=== PATIENT | female | born 1970 | race Caucasian/White ===

== ENCOUNTER 2020-05-10 18:08 | Emergency (ER) | payer OTHER, SELFPAY ==
[2020-05-10 18:09] VITALS: BP 144/94; PULSE 116; RESP 16; TEMP 36.3; O2SAT 99; BMI 28.5
[2020-05-10] MEDS: morphine 8 MG/ML Syringe IV (19:28)
[2020-05-10] MEDS: Ondansetron 4 MG/2 ML Vial IV (19:28)
--- NOTE | 2020-05-10 20:29 | ED.DCSUM_ITS ---
History of Present Illness Chief Complaint: Other, Pain/Inj Informant: Patient Onset: Today, Hours - Approximately 10 AM Context: Sudden Onset Timing: Continuous Quality: Pain Location: Base of neck posteriorly along the C8 dermatome Current Severity: Mild Maximum Severity: Moderate Worsened by: Movement Relieved by: Nothing Associated Symptoms: Tingling and pain Narrative: Patient is a 49-year-old right-hand dominant woman whose had neck fusion and disc replacement C5-6 and C6-7 at 2 different facilities in the past. She presents with acute pain after looking up. She felt a pop. She describes pain along the C8 dermatome. She denies weakness with grasp. She has no other symptoms. Prior similar symptoms: No Recent Illness/Hospitalization: No - Past Medical History (1) History of type 1 diabetes mellitus Status: Acute (2) Hypothyroidism Status: Acute Past Medical History - Allergies and Home Meds Allergies/Adverse Reactions: Allergies NSAIDS (Non-Steroidal Anti-Inflamma Allergy (Verified 05/10/20 18:09) Swelling Primary Care Physician: [facility],[place] [Primary Care Provider] - Prior records reviewed: Yes Surgical History: - - Fusion and disc replacement C5-6 and C6-7 Lives: Spouse/ Significant Other Smoking Status: Current every day smoker Alcohol: Rare Drugs: None Review of Systems General: Denies: Chills, Fever, Malaise, Sweats Eyes: Denies: Visual changes - bilaterally, Blurred Vision - bilaterally ENT: Reports: - - Ringing in ears or decreased hearing. Denies: Bilateral ear pain, Rhinorrhea, Sore throat Cardiovascular: Denies: Chest pain, Palpitations Respiratory: Denies: Dyspnea, Cough, Dyspnea on exertion Gastrointestinal: Denies: Abdominal pain, Nausea, Vomiting Musculoskeletal: Reports: Neck pain, Extremity Pain. Denies: Myalgias, Arthralgias, Back pain, Swelling, -, - Skin: Denies: Rash, Wounds Neurological: Reports: Parasthesia. Denies: Headache, Weakness Hematologic: Denies: Easy bruising, Easy bleeding Physical Exam Vital Signs/Narrative: Vital Signs Temp Pulse Resp BP Pulse Ox 05/10/20 18:09 97.4 F L 116 H 16 144/94 H 99 Inital Vital Signs reviewed: Yes General: Well nourished, Well developed, Acute Distress Head: Normocephalic, Atraumatic Eyes: Perrl, EOMI ENT: Moist mucous membranes, No rhinorrhea Neck: Supple, Nontender Cardiovascular: Regular rate, Regular rhythm, No murmurs Respiratory: No distress, CTA bilaterally, Chest nontender Abdomen: Soft, Nontender, Nondistended, Normal bowel sounds Back: Nontender, Normal Inspection Extremities: Nontender, No edema Skin: Normal color, No rash Neurological: Alert, Oriented x3, Cranial nerves II-XII grossly intact, Normal Strength, Normal DTR - DTR 1+ at the biceps, brachioradialis and tricep bilaterally. Negative Babinski sign. Negative clonus. Axillary, median, radial and ulnar function intact. Decreased sensation C8 dermatome. Negative for: Normal Sensation Psychological: Normal affect, Normal Mood Diagnostic/Tx/Re-eval - Medical Decision Making Patient with C8 radicular pain. Since there is no objective neurologic deficit emergent MRI was not obtained. She was medicated with IV morphine. She has anaphylaxis to NSAIDs. Patient was assessed at 2030. She is smiling. Pain has improved but has not resolved. Will discharge with prescription for opiate analgesia. ED Disposition - Plan for ED Patient: Disposition: Home or Assisted Living Diagnosis: Cervical radiculopathy at C8 Prescriptions: Oxycodone HCl/Acetaminophen [Percocet 5/325] 1 tab PO Q6H PRN PRN 5 Days #20 tab PRN Reason: Cervical radicular pain Prescription Printed Referrals: [facility],[place] [Primary Care Provider] - 3-5 Days
[2020-05-10 20:51] VITALS: PULSE 80; RESP 16; O2SAT 98
== END 2020-05-10 20:52 | disposition home or self-care (01) ==
PROVIDERS: Emergency Provider Emergency Medicine
DX: M54.12 Radiculopathy, cervical region (principal); Z98.1 Arthrodesis status; E10.9 Type 1 diabetes mellitus without complications; E03.9 Hypothyroidism, unspecified; F17.200 Nicotine dependence, unspecified, uncomplicated; Z79.4 Long term (current) use of insulin; Z79.899 Other long term (current) drug therapy; Z88.6 Allergy status to analgesic agent
CPT/HCPCS: 96374; 96375; 99283; A4216; J2405

== ENCOUNTER 2020-05-15 11:51 | Emergency (ER) | payer OTHER, SELFPAY ==
[2020-05-15 11:53] VITALS: BP 136/80; PULSE 127; RESP 18; TEMP 36.8; O2SAT 99; BMI 29.7
--- NOTE | 2020-05-15 12:19 | MRI_ITS ---
STUDY: MRI CERVICAL SPINE WITHOUT CONTRAST REASON FOR EXAM: Female, 49 years old. radiculopathy. Neck pain and right arm pain s/p injury 1 week ago TECHNIQUE: Standardized fat and water weighted pulse sequences were obtained in the sagittal and axial planes. COMPARISON: None FINDINGS: Normal foramen magnum and brainstem-cervical cord junction. Normal craniovertebral junction. Normal anterior atlantoaxial articulation. Normal odontoid process. Normal cervical lordosis. Anterior surgical fusions of C5-C7 with normal alignment. C2-3: Normal endplates. Normal disc height, signal and morphology. Normal central canal and intervertebral neural foramina. C3-4: Normal endplates. Normal disc height, signal and morphology. Normal central canal and intervertebral neural foramina. C4-5: Disc osteophyte complex with moderate central canal and bilateral foraminal stenoses. C5-6: Diffuse disc space without residual compressive sequelae. C6-7: Diffuse disc space without residual compressive sequelae. C7-T1: Normal endplates. Normal disc height, signal and morphology. Normal central canal and intervertebral neural foramina. Normal cervical cord. Normal visualized soft tissue structures. MRI/Spine Cervical (Routine) IMPRESSION: Multilevel degenerative disease and postoperative change as described. Moderate central canal and bilateral foraminal stenoses at the C4-5. No evidence of cord contusion, epidural hematoma, or ligament disruption. Electronically Signed: Eris Newell MD at 14:01 EDT Tel , Service support ,
[2020-05-15] MEDS: Ondansetron 4 MG/2 ML Vial IM (12:29)
[2020-05-15] MEDS: HYDROmorphone 1 MG/ML Syringe IM ×2 (12:30→14:16)
[2020-05-15 13:58] VITALS: BP 120/79; PULSE 97; RESP 16; O2SAT 99
--- NOTE | 2020-05-15 14:22 | ED.VISSUMM ---
- ER Visit Summary Date of Service: 05/15/20 Chief Complaint: [Neck pain] History of Present Illness: The patient is a 49 F [presents the emergency department complaint of pain in her neck that she has had for the last 5 days. Patient was seen in the emergency department for the same 5 days ago when the pain started and was given a prescription of Percocet. Patient states that she continues to have severe pain that radiates on her right arm. Patient states that her ring finger and small finger are numb and tingly but the rest of her hand is numb and tingly now as well. Pain radiates from her neck down her arm. Patient states that she dropped a coffee mug and complains of some mild weakness in the hand. Patient has history of 2 prior neck surgeries in 2007 and 2012. Patient has had fusion of her cervical spine from C4 5-6 7.] Physical Examination: [HEENT-PERRLA, EOMI. Cranial nerves II through XII grossly intact. TMs clear. Mucous membranes moist. No adenopathy. Patient has diffuse tenderness palpation over the cervical spine and the cervical paraspinal musculature on the right. Patient has mild weakness with grasp of the right hand compared to the left hand. Deep tendon reflexes are plus 2 out of 4 bilaterally at the bicep, tricep, and brachioradialis. Cardiovascular-regular rate and rhythm without murmur or ectopy Lungs-clear to auscultation, chest wall stable without crepitus or subcu emphysema Abdomen-normoactive bowel sounds, soft, nontender, no rebound or rigidity, no peritoneal signs. Extremities-intact ?4, normal range of motion, normal pulses, atraumatic] Test Results: [MRI of the spine cervical spine was obtained which showed multilevel degenerative disease and postop changes. Patient had moderate central canal and bilateral foraminal stenosis at the C4-5 level. No evidence of cord contusion, epidural hematoma, or ligament disruption.] Emergency Department Course and Treatment: [He was medicated Dilaudid for pain.] Treatment Plan: [She will follow-up with her neurosurgeon that did her last surgery. She was given her MRI images on a disc to take with her. She will be given a prescription for few more Percocet for severe pain.] Disposition: [Discharged home in stable condition.] Impression: [Cervical radiculopathy] This note was generated with Dragon dictation software. It may contain incorrect words, spelling, and punctuation that were not noted in review of the chart prior to signing ED Disposition - Plan for ED Patient: [facility] [Primary [facility]] -
--- NOTE | 2020-05-15 14:25 | ED.DEP ---
ED Disposition - Plan for ED Patient: Instructions: ED CERVICAL RADICULOPATHY Prescriptions: Oxycodone HCl/Acetaminophen [Percocet 5/325] 1 tab PO Q6H PRN PRN 5 Days #20 tab PRN Reason: Pain Score 6-10/10 Prescription Printed [facility]errals: [facility] [Primary [facility]] - Additional Instructions: see your surgeon in 3-5 days
[2020-05-15 14:33] VITALS: BP 112/84; PULSE 71; RESP 16; O2SAT 98
== END 2020-05-15 14:34 | disposition home or self-care (01) ==
LOC: ED 12:47
PROVIDERS: Emergency Provider Emergency Medicine
DX: M54.12 Radiculopathy, cervical region (principal); F17.200 Nicotine dependence, unspecified, uncomplicated; E11.9 Type 2 diabetes mellitus without complications; Z79.4 Long term (current) use of insulin
CPT/HCPCS: 72141; 96372; 96374; 99282; J2405

== ENCOUNTER 2020-05-21 18:44 | Emergency (ER) | payer OTHER, SELFPAY ==
[2020-05-21 18:46] VITALS: BP 132/108; PULSE 127; RESP 18; TEMP 36.6; O2SAT 99; BMI 29.7
--- NOTE | 2020-05-21 19:33 | ED.VIS.GEN ---
History of Present Illness Chief Complaint: Other, Pain/Inj Informant: Patient Onset: Weeks Current Severity: Moderate Maximum Severity: Severe Narrative: Patient presents with continued right neck and radicular pain. She was seen here on the and the . MRI was performed on the . Patient states that she had a tele-visit today with 1 of the doctors at the [place]. She was called back a short time later stating that she had actually seen the wrong doctor and was may be rescheduled for June 18. Patient complains of continued pain. At this time patient states she is willing to see any available surgeon and will try to get reimbursed to the [facility] if they are not able to take care of her. - Past Medical History (1) Diabetes Status: Chronic (2) Hypothyroidism Status: Chronic Past Medical History - Allergies and Home Meds Allergies/Adverse Reactions: Allergies NSAIDS (Non-Steroidal Anti-Inflamma Allergy (Verified 05/21/20 18:50) Swelling [facility] Care Physician: [facility] [Primary Care Provider] - Prior records reviewed: Yes Surgical History: - - Fusion and disc replacement C5-6 and C6-7 Lives: Spouse/ Significant Other Smoking Status: Current every day smoker Review of Systems General: Denies: Chills, Fever Eyes: Denies: Visual changes - bilaterally ENT: Denies: Bilateral ear pain Cardiovascular: Denies: Chest pain Respiratory: Denies: Dyspnea Gastrointestinal: Denies: Abdominal pain Musculoskeletal: Reports: Neck pain Skin: Denies: Rash Neurological: Reports: Weakness. Denies: Headache Hematologic: Denies: Easy bruising, Easy bleeding Allergy: Denies: Uticaria Physical Exam Vital Signs/Narrative: Vital Signs Temp Pulse Resp BP Pulse Ox 05/21/20 18:46 97.9 F 127 H 18 132/108 H 99 Inital Vital Signs reviewed: Yes General: Well nourished, Well developed Head: Normocephalic ENT: Moist mucous membranes Neck: Supple Cardiovascular: Regular rate, Regular rhythm Respiratory: No distress, CTA bilaterally Abdomen: Soft, Nontender Back: - - Right-sided neck pain and pain across the shoulder. Decreased range of motion of the shoulder secondary to pain. Strong distal pulses. Strong hand grasp. Extremities: Nontender Skin: Normal color, No rash Diagnostic/Tx/Re-eval - Medical Decision Making Previous work-up including MRI was reviewed. Patient received 20 tabs of Percocet on the and the 16. At this time she will get another prescription for Percocet. She will also be treated with a course of steroids as she is not able to take NSAIDs. She will also be given a muscle relaxer. She will be referred to Dr. Ruiz to be seen locally. I also spoke with social work to see if they had any connections on who [facility] ED Disposition - Plan for ED Patient: Disposition: Home or Assisted Living Diagnosis: Cervical radiculopathy Instructions: ED CERVICAL RADICULOPATHY Prescriptions: Prednisone [Deltasone] 40 mg PO DAILY #10 tab Transmission Status: Pending to [facility] cycloBENZAPRine HCl [Flexeril] 10 mg PO TID PRN #20 tab PRN Reason: Muscle Spasm Transmission Status: Pending to [facility] Oxycodone HCl/Acetaminophen [Percocet 5/325] 1 tablet PO Q6H PRN PRN 5 Days #20 tablet PRN Reason: Pain Score 4-10/10 Transmission Status: Sent to [facility] Referrals: [facility] [Primary Care Provider] - Zaida Ruiz MD [STAFF PHYSICIAN] - As soon as possible
[2020-05-21] MEDS: oxyCODONE 5 MG Tablet PO (19:40)
[2020-05-21] MEDS: cycloBENZAPRine HCl 10 MG Tablet PO (19:41)
[2020-05-21] MEDS: predniSONE 20 MG Tablet 40 MG PO (19:41)
[2020-05-21 19:42] VITALS: BP 115/89; PULSE 104; RESP 19; O2SAT 98
== END 2020-05-21 19:52 | disposition home or self-care (01) ==
LOC: ED 19:48
PROVIDERS: Emergency Provider Emergency Medicine
DX: M54.12 Radiculopathy, cervical region (principal); F17.200 Nicotine dependence, unspecified, uncomplicated; E11.9 Type 2 diabetes mellitus without complications; E03.9 Hypothyroidism, unspecified; Z79.4 Long term (current) use of insulin
CPT/HCPCS: 99283

== ENCOUNTER 2020-05-31 19:19 | Observation (INO) | payer OTHER, SELFPAY ==
[2020-05-31 19:20] VITALS: BP 134/93; PULSE 131; RESP 18; TEMP 36.7; O2SAT 99; BMI 30.7
--- NOTE | 2020-05-31 19:42 | EKG12_ITS ---
Test Reason : HYPOGLYCEMIA Blood Pressure : / mmHG Vent. Rate : 116 BPM Atrial Rate : 116 BPM P-R Int : 130 ms QRS Dur : 064 ms QT Int : 314 ms P-R-T Axes : 052 025 036 degrees QTc Int : 436 ms Sinus tachycardia Otherwise normal ECG Confirmed by TIKA FISHER ([id number]), science editor YVONNE CLARK ([id number]) on 06/04/2020 2:20:49 PM Referred By: Confirmed By:TIKA FISHER
--- NOTE | 2020-05-31 19:51 | ED.DCSUM_ITS ---
History of Present Illness Chief Complaint: Hyperglycemia Informant: Patient Narrative: Patient presents the emergency department with hyperglycemia. Patient states she has type II diabetic she takes Saturnino 1000 mg twice daily in addition to insulin. The patient states that approximately 8 days ago she was given steroids for a cervical radiculopathy. She stopped taking the steroids 3 days ago because her blood sugars kept reading high. She states she has dry mouth palpitations and urinary frequency and fatigue. She states that she has been taking extra short acting insulin (sometimes over 150 units) and at times has dropped her blood sugar down into the 40s. She called the [place] nursing line today and was referred to the emergency department. No fevers. No vomiting diarrhea. Past Medical History - Allergies and Home Meds Allergies/Adverse Reactions: Allergies NSAIDS (Non-Steroidal Anti-Inflamma Allergy (Verified 05/31/20 19:19) Swelling ketorolac [From Toradol] Adverse Reaction (Verified 05/31/20 22:00) NEEDS FOLLOW-UP tramadol Adverse Reaction (Verified 05/31/20 22:00) NEEDS FOLLOW-UP Primary Care Physician: [facility],[place] [Primary Care Provider] - As soon as possible Surgical History: - - Fusion and disc replacement C5-6 and C6-7 Smoking Status: Current every day smoker Review of Systems General: Reports: Malaise. Denies: Chills, Fever, Sweats Eyes: Denies: Visual changes - bilaterally, Diplopia ENT: Reports: -. Denies: Rhinorrhea, Sore throat Cardiovascular: Reports: Palpitations, Heart racing. Denies: Chest pain Respiratory: Denies: Dyspnea, Cough, Dyspnea on exertion Gastrointestinal: Denies: Abdominal pain, Nausea, Vomiting, Diarrhea, Melena, Hematochezia Genitourinary: Reports: Frequency - Dry mouth. Denies: Dysuria, Hematuria Musculoskeletal: Denies: Back pain, Extremity Pain Skin: Denies: Rash, Wounds Neurological: Denies: Headache, Weakness, Numbness Physical Exam Vital Signs/Narrative: Vital Signs Temp Pulse Resp BP Pulse Ox 05/31/20 19:20 98.1 F 131 H 18 134/93 H 99 Inital Vital Signs reviewed: Yes General: Well nourished, Well developed, No Acute Distress Head: Normocephalic, Atraumatic Eyes: Perrl, EOMI ENT: No rhinorrhea, Dry mucous membranes Neck: Supple, Nontender Cardiovascular: Regular rate, No murmurs, Tachycardia Respiratory: No distress, CTA bilaterally, Chest nontender Abdomen: Soft, Nontender, Nondistended, Normal bowel sounds Back: Nontender, Normal Inspection Extremities: Nontender, No edema Skin: Normal color, No rash Neurological: Alert, Oriented x3, Cranial nerves II-XII grossly intact, Normal Strength, Normal Sensation Psychological: Normal affect, Normal Mood Diagnostic/Tx/Re-eval Clinical Impression(s) from Imaging Studies Chest X-Ray 05/31/20 21:09 IMPRESSION: Vague tubular density over the left lung base thought to be artifactual. The possibility of mass or infiltrate cannot be definitively ruled out the absence of comparison studies. Electronically Signed: Ajit Miller DO at 21:42 EDT Tel [phone], Service support , Laboratory Last Values WBC 9.6 K/mm3 (4.4-11.0) 05/31/20 19:45 RBC 4.57 M/mm3 (4.2-5.4) 05/31/20 19:45 Hgb 12.6 g/dL (12.0-15.0) 05/31/20 19:45 Hct 39.5 % (37-47) 05/31/20 19:45 MCV 86.4 fL (81-99) 05/31/20 19:45 MCH 27.6 pg (27.0-32.0) 05/31/20 19:45 MCHC 31.9 g/dL (32-36) L 05/31/20 19:45 RDW Std Deviation 44.1 fl (35.1-43.9) H 05/31/20 19:45 RDW Coeff of Tere 14.4 % (11.6-14.6) 05/31/20 19:45 Plt Count 219 K/mm3 (150-450) 05/31/20 19:45 MPV 10.1 fl (6.2-12.0) 05/31/20 19:45 Immature Gran % (Auto) 0.400 % (0.0-0.9) 05/31/20 19:45 Neut % (Auto) 54.1 % (47-70) 05/31/20 19:45 Lymph % (Auto) 35.6 % (19-41) 05/31/20 19:45 Throckmorton % (Auto) 7.3 % (0-10) 05/31/20 19:45 Eos % (Auto) 2.0 % (0-5) 05/31/20 19:45 Baso % (Auto) 0.6 % (0-1) 05/31/20 19:45 Absolute Neuts (auto) 5.2 X10^3/uL (2.0-7.7) 05/31/20 19:45 Absolute Lymphs (auto) 3.42 X10^3/uL (0.83-4.51) 05/31/20 19:45 Nucleated RBC % 0 % (0-5) 05/31/20 19:45 PT 13.2 SECONDS (11.7-14.9) 05/31/20 19:45 INR 1.1 05/31/20 19:45 APTT 28.9 Seconds (24.1-36.2) 05/31/20 19:45 Sodium 134 mmol/L (136-145) L 05/31/20 19:45 Potassium 3.6 mmol/L (3.5-5.1) 05/31/20 19:45 Chloride 99 mmol/L (98-107) 05/31/20 19:45 Carbon Dioxide 29.0 mmol/L (21.0-32.0) 05/31/20 19:45 Anion Gap 6 (5-15) 05/31/20 19:45 BUN 9 mg/dL (7-18) 05/31/20 19:45 Creatinine 0.79 mg/dL (0.55-1.02) 05/31/20 19:45 Estim Creat Clear Calc 83.77 ml/min 05/31/20 19:45 Est GFR (MDRD) Af Amer 99 mL/min (>60) 05/31/20 19:45 Est GFR (MDRD) Non-Af 82 mL/min (>60) 05/31/20 19:45 BUN/Creatinine Ratio 11.4 RATIO (10-20) 05/31/20 19:45 Glucose 216 mg/dL (74-106) H 05/31/20 19:45 Lactic Acid 3.5 mmol/L (0.4-1.9) H* 05/31/20 19:45 Calcium 8.9 mg/dL (8.5-10.1) 05/31/20 19:45 Magnesium 1.5 mg/dL (1.6-2.6) L 05/31/20 19:45 Total Bilirubin 0.30 mg/dL (0.20-1.00) 05/31/20 19:45 AST 75 U/L (15-37) H 05/31/20 19:45 ALT 45 U/L (13-56) 05/31/20 19:45 Alkaline Phosphatase 182 U/L (45-117) H 05/31/20 19:45 Troponin I < 0.015 ng/mL (<0.045) 05/31/20 19:45 Total Protein 8.0 g/dL (6.4-8.2) 05/31/20 19:45 Albumin 3.2 g/dL (3.2-5.0) 05/31/20 19:45 Globulin 4.8 g/dL (2.2-4.2) H 05/31/20 19:45 Albumin/Globulin Ratio 0.7 RATIO (0.9-2.4) L 05/31/20 19:45 Lipase 62 U/L (73-393) L 05/31/20 19:45 Urine Color Yellow (Yellow) 05/31/20 20:05 Urine Clarity Sl. Cloudy (Clear) 05/31/20 20:05 Urine pH 5.0 (5.0 - 8.0) 05/31/20 20:05 Ur Specific [place] 1.010 (1.002-1.030) 05/31/20 20:05 Urine Protein Negative mg/dl (Negative) 05/31/20 20:05 Urine Glucose (UA) 1000 mg/dl (Normal) H 05/31/20 20:05 Urine Ketones Negative mg/dl (Negative) 05/31/20 20:05 Urine Occult Blood Negative /ul (Negative) 05/31/20 20:05 Urine Nitrite Negative (Negative) 05/31/20 20:05 Urine Bilirubin Negative mg/dL (Negative) 05/31/20 20:05 Urine Urobilinogen Normal mg/dl (Normal) 05/31/20 20:05 Ur Leukocyte Esterase 100 /ul (Negative) H 05/31/20 20:05 Urine RBC 0 SEEN /hpf (0-5) 05/31/20 20:05 Urine WBC 0-5 SEEN /hpf (0-5) 05/31/20 20:05 Ur Squamous Epith Cells 0-5 SEEN /hpf (5-10) 05/31/20 20:05 Urine Bacteria 0 SEEN /hpf (None Seen) 05/31/20 20:05 Urine Mucus 0 SEEN /hpf (<or=2+) 05/31/20 20:05 Acetone Level NEGATIVE (NEG) 05/31/20 19:43 - EKG Initial EKG Interpretation: Sinus Tachycardia - EKG demonstrates a sinus tachycardia at a rate of 116 - Medical Decision Making Patient received pain medication because of her cervical radiculopathy. As this is not an acute issue I do not feel IV Dilaudid is indicated. Patient showed evidence of significant dehydration both on physical exam (dry mucous membranes, tachycardia, decreased capillary refill) and in her laboratory studies which showed a lactic acid of 3.5. I do not believe the elevated lactic acid is due to sepsis. I believe is most likely due to hypovolemia. She received 2 L of IV fluids and her heart rate is come down now to around 110. I believe the patient would benefit from continued overnight hydration as well as close monitoring of her blood sugar to get a better idea as to what her insulin requirements are. As discussed in the HPI she has sometimes used over 150 vunits of short acting insulin in addition to her long-acting to try to control her sugars. ED Disposition - Plan for ED Patient: Disposition: Home or Assisted Living Diagnosis: Diabetes mellitus, Steroid-induced hyperglycemia, Dehydration, Elevated lactic acid level, Cervical radicular pain Instructions: ED Diabetic Hyperglycemia, ED HYPOGLYCEMIA Insulin Rxn, ED CERVICAL RADICULOPATHY [facility]errals: [facility] [Primary Care Provider] - As soon as possible Additional Instructions: Continue taking your long-acting insulin as well as your metformin You may try the sliding scale below for using your short acting insulin (Insulin lispro) BG 150-199: 2 unit BG 200-249: 4 units BG 250-299: 7 units BG 300-349: 10 units BG Over 350: 12 units
[2020-05-31] MEDS: 0.9% Normal Saline 1,000 ML 1000 ML IV (19:53)
[2020-05-31] MEDS: HYDROcodone Bitartrate/Apap 5/325 Tablet PO (20:06)
[2020-05-31 20:17] LABS: Bacteria 0 SEEN /hpf (None Seen); Mucous, Urine 0 SEEN /hpf (<or=2+); Red Blood Cells-Urine 0 SEEN /hpf (0-5)
[2020-05-31 20:19] LABS: Absolute Lymphocyte Count 3.42 X10^3/uL (0.83-4.51); Absolute Neutrophil Count 5.2 X10^3/uL (2.0-7.7); Basophil# 0.06 X10^3/uL; Basophil% 0.6 % (0-1); Eosinophil# 0.19 X10^3/uL; Hematocrit 39.5 % (37-47); Hemoglobin 12.6 g/dL (12.0-15.0); Lymphocyte # 3.42 X10^3/ul (4.0); Lymphocyte % 35.6 % (19-41); Mean Corp Hgb Conc 31.9 g/dL (32-36); Mean Corpuscular Hgb 27.6 pg (27.0-32.0); Mean Corpuscular Volume 86.4 fL (81-99); Mean Platelet Vol. 10.1 fl (6.2-12.0); Monocyte% 7.3 % (0-10); NRBC Flagged by Analyzer 0 % (0-5); Neutrophil # 5.19 X10^3/uL (2.7-7.7); Neutrophil % 54.1 % (47-70); Platelet Count 219 K/mm3 (150-450); RBC Distribution Width CV 14.4 % (11.6-14.6); RBC Distribution Width SD 44.1 fl (35.1-43.9); Red Blood Count 4.57 M/mm3 (4.2-5.4); White Blood Count 9.6 K/mm3 (4.4-11.0)
[2020-05-31 20:23] LABS: International Normalized Ratio 1.1; Prothrombin Time (Protime)PT. 13.2 SECONDS (11.7-14.9)
[2020-05-31 20:24] LABS: Partial Thromboplast Time 28.9 Seconds (24.1-36.2)
[2020-05-31 20:27] LABS: Color, Urine Yellow (Yellow); Glucose, Dipstick 1000 mg/dl (Normal); Ketone-Dipstick Negative (Negative); Leukocyte Esterase-Dipstick 100 /ul (Negative); Nitrite-Dipstick Negative (Negative); Occult Blood-Urine Negative /ul (Negative); Protein-Dipstick Negative (Negative); Urine Bilirubin Dipstick Negative (Negative); Urine Clarity Sl. Cloudy (Clear); Urine Urobilinogen Normal (Normal)
[2020-05-31 20:34] LABS: Squamous Epithelial Cells - UA 0-5 SEEN /hpf (5-10); White Blood Cells 0-5 SEEN /hpf (0-5)
[2020-05-31 20:45] VITALS: BP 103/71; PULSE 110; RESP 18; O2SAT 99
[2020-05-31 20:46] LABS: Lactic Acid 3.5 mmol/L (0.4-1.9)
--- NOTE | 2020-05-31 21:09 | RAD_ITS ---
STUDY: X-RAY CHEST REASON FOR EXAM: Female, 49 years old. Patient seen 1.5 weeks ago and given prednisone. Now with hyperglycemia. TECHNIQUE: Single AP portable view of the chest. COMPARISON: None. FINDINGS: Telemetry wires overlie the chest. Lungs well-expanded. There is vague density over the lateral left lung base which is thought to be artifactual. The possibility of focal nodule or infiltrate cannot be ruled out in the absence of comparison films. There is no demonstrated pleural abnormality. Normal size heart. Normal mediastinum and janes. Normal visualized pulmonary arteries. Normal visualized aortic arch and descending thoracic aorta. Normal visualized thoracic spine. There are surgical changes of the lower cervical spine. Normal visualized ribs, clavicles, and shoulders. There is no demonstrated abnormality of the visualized soft tissue structures of the upper abdomen. RAD/Chest 1 View (Portable) IMPRESSION: Vague tubular density over the left lung base thought to be artifactual. The possibility of mass or infiltrate cannot be definitively ruled out the absence of comparison studies. Electronically Signed: Ajit Miller DO at 21:42 EDT Tel [phone], Service support ,
[2020-05-31 21:22] LABS: ALB/GLOB Ratio 0.7 RATIO (0.9-2.4); AST(SGOT) 75 U/L (15-37); Alanine Aminotransfer ALT/SGPT 45 U/L (13-56); Albumin, Serum 3.2 g/dL (3.2-5.0); Alkaline Phosphatase 182 U/L (45-117); Anion Gap 6 (5-15); BUN 9 mg/dL (7-18); BUN/Creat Ratio 11.4 RATIO (10-20); Calcium,Total 8.9 mg/dL (8.5-10.1); Chloride 99 mmol/L (98-107); Creatinine, Serum 0.79 mg/dL (0.55-1.02); EST Glomerular Filtration Rate 82 mL/min (>60); Est Glom Filt Rate - Afr Amer 99 mL/min (>60); Estimated Creatinine Clearance 83.77 ml/min; Globulin 4.8 g/dL (2.2-4.2); Glucose 216 mg/dL (74-106); Lipase 62 U/L (73-393); Magnesium 1.5 mg/dL (1.6-2.6); Potassium 3.6 mmol/L (3.5-5.1); Sodium Level 134 mmol/L (136-145)
--- NOTE | 2020-05-31 21:52 | HP.PCM_ITS ---
Problem List (1) History of type 1 diabetes mellitus Status: Chronic (2) Hypothyroidism Status: Chronic (3) Diabetes Status: Chronic (4) Steroid-induced hyperglycemia Status: Acute (5) Dehydration Status: Acute (6) Elevated lactic acid level Status: Acute (7) Cervical radicular pain Status: Acute History of Present Illness Date of Admission: 05/31/20 Chief Complaint: Hyperglycemia The patient is a 49 year old F with a significant history of Leida thyroiditis; seizure disorder; and diabetes mellitus who presented to emergency department with elevated blood glucose. Patient was recently started on steroids because of cervical radiculopathy. Reportedly her home blood glucose machine has been reading high. She attributes the elevated blood glucose to steroids so she stopped using the steroids about 3 days prior to presentation. Patient reported that with her blood glucose machine reading high, her PCP advised her to take 20 units of short acting insulin anytime that her blood glucose reads high. And she should be checking her blood glucose every 1 hour with repeated doses of 20 units of short acting insulin until her blood glucose machine no longer reads high. She reported on a day before presentation, overall she took a total of 120 units of short acting insulin. And on the day of presentation she took a total of 90 units of short acting insulin. Reportedly at about 5 AM in the morning, her blood glucose has been reading around 40. Patient takes 50 units of long-acting insulin around 9 PM. Because of hypoglycemia the last time that she takes her short acting insulin is around 6 PM. Additionally patient takes metformin. On presentation, she was found to have lactic acidosis. Patient received IV fluids bolus for dehydration. Of note patient was at emergency department on 05/10/2020; 05/15/2020; and 05/21/2020. The diagnosis for this visit was cervical radiculopathy. She was given a Percocet on these visits. Per pharmacy patient also received diazepam on 05/19/2020. Past Medical History Past Medical History (Chronic Problems): Chronic Problems History of type 1 diabetes mellitus (Chronic) Hypothyroidism (Chronic) Diabetes (Chronic) Allergies NSAIDS (Non-Steroidal Anti-Inflamma Allergy (Verified 05/31/20 19:19) Swelling Home Medications: Ambulatory Orders Medication Instructions Recorded Insulin Glargine,Hum.rec.anlog 50 unit SQ QHS 05/10/20 [Lantus] Levetiracetam [Keppra] 500 mg PO BID 05/10/20 Levothyroxine Sodium [Unithroid] 200 mcg PO DAILY 05/10/20 cycloBENZAPRine HCl [Flexeril] 10 mg PO TID PRN #20 tab 05/21/20 Oxycodone HCl/Acetaminophen 1 ea PO Q6H PRN PRN 05/31/20 [Oxycodone-Acetaminophen 5-325] Surgical History: - - Fusion and disc replacement C5-6 and C6-7 Smoking Status: Current every day smoker Tobacco Use: Cigarettes - *Family History Maternal History Items: - - Thyroidism Paternal History Items: Hypertension Review of Systems Constitutional: Denies: Chills, Fever, Weight Change HEENT: Denies: Head Aches, Sinus Congestion, Sinus Drainage Cardiovascular: Denies: Chest Pain, Palpitations Respiratory: Denies: Cough, Shortness of breath at rest, Sputum production Gastrointestinal: Denies: Abdominal Pain, Nausea, Vomiting Genitourinary: Reports: Frequency - Increased frequency. Denies: Dysuria Musculoskeletal: Reports: Neck Pain, Shoulder Pain. Denies: Joint Pain, Joint Tenderness Skin: Denies: Rash, Wounds Neurological: Denies: Numbness, Tingling, Focal weakness Psychiatric: Denies: Anxiety, Depression, Homicidal Ideations, Suicidal Ideations Hematologic/ Lymphatic: Denies: Easy Bruising, Easy Bleeding VTE Information - Inpt Only VTE Present on Admission: No VTE Mechan Device Prophylaxis: None VTE Pharm Prophylaxis ordered?: Yes Patient Problems: Active and Suspected Problems Steroid-induced hyperglycemia (Acute) Dehydration (Acute) Elevated lactic acid level (Acute) Cervical radicular pain (Acute) - Physical Exam Vitals/I&O's: Vital Signs Temp Pulse Resp BP Pulse Ox 98.1 F 110 H 18 103/71 99 05/31/20 19:20 05/31/20 20:45 05/31/20 20:45 05/31/20 20:45 05/31/20 20:45 Oxygen Delivery Method Room Air Weight: 88.8 kg Body Mass Index (BMI) 30.7 General: Alert - With mild lethargy, Oriented x3, Cooperative HEENT: Atraumatic, PERRLA, EOMI, Normocephalic Neck: Supple, No JVD, Negative Carotid Bruits Lungs: Clear to auscultation, Normal air movement, No rhonchi, No wheeze, No rales, Diminished Cardiovascular: Regular rate, Regular Rhythm, Normal S1, Normal S2, No murmurs Abdomen: Bowel Sounds Present, Soft, Non Tender Extremities: No edema, Capillary Refill Less than 3 Seconds, - - Strength in right upper extremity 4 out of 5. Strength in all other extremities 5 out of 5. Skin: No rashes, No breakdown Musculoskeletal: No Muscle Wasting Neurological: Cranial nerves II-XII grossly intact Psych/Mental Status: Normal Affect, Appropriate Laboratory Results 05/31/20 19:43: Acetone Level NEGATIVE 05/31/20 19:45: WBC 9.6, RBC 4.57, Hgb 12.6, Hct 39.5, MCV 86.4, MCH 27.6, MCHC 31.9 L, RDW Std Deviation 44.1 H, RDW Coeff of Tere 14.4, Plt Count 219, MPV 10.1, Immature Gran % (Auto) 0.400, Neut % (Auto) 54.1, Lymph % (Auto) 35.6, [place] % (Auto) 7.3, Eos % (Auto) 2.0, Baso % (Auto) 0.6, Absolute Neuts (auto) 5.2, Absolute Lymphs (auto) 3.42, Nucleated RBC % 0 05/31/20 19:45: PT 13.2, INR 1.1, APTT 28.9 05/31/20 19:45: Sodium 134 L, Potassium 3.6, Chloride 99, Carbon Dioxide 29.0, Anion Gap 6, BUN 9, Creatinine 0.79, Estim Creat Clear Calc 83.77, Est GFR (MDRD) Af Amer 99, Est GFR (MDRD) Non-Af 82, BUN/Creatinine Ratio 11.4, Glucose 216 H, Calcium 8.9, Magnesium 1.5 L, Total Bilirubin 0.30, AST 75 H, ALT 45, Alkaline Phosphatase 182 H, Troponin I < 0.015, Total Protein 8.0, Albumin 3.2, Globulin 4.8 H, Albumin/Globulin Ratio 0.7 L, Lipase 62 L 05/31/20 19:45: Lactic Acid 3.5 H* 05/31/20 20:05: Urine Color Yellow, Urine Clarity Sl. Cloudy, Urine pH 5.0, Ur Specific [place] 1.010, Urine Protein Negative, Urine Glucose (UA) 1000 H, Urine Ketones Negative, Urine Occult Blood Negative, Urine Nitrite Negative, Urine Bilirubin Negative, Urine Urobilinogen Normal, Ur Leukocyte Esterase 100 H, Urine RBC 0 SEEN, Urine WBC 0-5 SEEN, Ur Squamous Epith Cells 0-5 SEEN, Urine Bacteria 0 SEEN, Urine Mucus 0 SEEN Assessment/Plan All Active Problems Steroid-induced hyperglycemia (Acute) Dehydration (Acute) Elevated lactic acid level (Acute) Cervical radicular pain (Acute) The patient is a 49 year old F with a significant history of Leida thyroiditis; seizure disorder; and diabetes mellitus who presented to emergency department with elevated blood glucose; and found to have lactic acidosis. Hyperglycemia On presentation blood glucose was Patient received IV fluid bolus. Repeat blood glucose was 90. Hold metformin because of lactic acidosis. Hold long-acting insulin. Put on Accu-Chek QA CHS and 2 AM and cover with low-dose correction scale insulin for now. Cervical radiculopathy Radiologist impression of MRI MRI on 05/15/2020: Multilevel degenerative disease and postoperative changes. Moderate central canal and bilateral foraminal stenosis at the C4 and C5. There was no evidence of cord contusion, epidural hematoma or ligament disruption [facility] Patient is allergic to all NSAIDs, Toradol and tramadol. Reportedly when she takes Toradol and tramadol she has headaches. Oxycodone 5 mg x 1 was given at the emergency department. Oxycodone 5 mg every 6 hours. Bowel protocol and antiemetics PRN ordered. We will place on scheduled Tylenol. Patient is at risk of narcotics dependence and abuse. She reports that her PCP referred her to neurosurgery and neurosurgery's office has called her and will schedule an appointment for her. Patient to follow-up with neurosurgery. PT and OT to work with patient while inpatient. Lactic acid acidosis No focus of infection found at this time. Likely combination of metformin use and dehydration. Received IV fluid bolus at emergency department. Continue patient on normal saline at 150 mL's per hour Hold metformin. Trend lactic acid. Seizure disorder On Keppra Leida thyroiditis On Synthroid Tobacco abuse Reports allergy to nicotine patch. Counseled. Abnormal x-ray. Impression of radiologist: Vague tubular density over the left lung base thought to be artifactual. The possibility of a mass or infiltrate cannot be definitely ruled out the absence of comparison studies. Patient is a smoker but she is less than 55 years. Does not meet requirements for screening. With this abnormal x-ray will repeat in a.m.. If chest x-ray remains abnormal consider CT scan. DVT prophylaxis Subcutaneous Lovenox OBSV E&M: 22338 Initial observation care L3
[2020-05-31] MEDS: oxyCODONE 5 MG Tablet PO (22:05)
[2020-05-31] MEDS: 0.9% Normal Saline 1,000 ML 999 ML IV ×2 (22:07→23:35)
[2020-05-31 22:08] VITALS: BP 108/71; PULSE 104; RESP 22; O2SAT 99
[2020-05-31 22:25] LABS: Bedside Glucose 90 mg/dL (70-110)
[2020-05-31 23:06] VITALS: BP 105/72; PULSE 106; RESP 20; TEMP 36.7; O2SAT 95
[2020-05-31 23:43] VITALS: BMI 31.5
[2020-05-31 23:52] LABS: Reflex Lactate? Y
[2020-06-01] LABS: Bedside Glucose 88 mg/dL (70-110)
[2020-06-01 00:15] VITALS: BP 116/64; PULSE 100; RESP 16; TEMP 36.7; O2SAT 96
[2020-06-01 00:54] LABS: Lactic Acid 1.7 mmol/L (0.4-1.9)
[2020-06-01] MEDS: 0.9% Normal Saline 1,000 ML 150 ML IV (01:00)
[2020-06-01 01:11] LABS: Bedside Glucose 62 mg/dL (70-110)
[2020-06-01 01:11] LABS: Bedside Glucose 133 mg/dL (70-110)
[2020-06-01 02:10] VITALS: BP 120/76; PULSE 93; RESP 16; TEMP 36.6; O2SAT 95
[2020-06-01] MEDS: oxyCODONE 5 MG Tablet PO ×2 (02:13→08:22)
[2020-06-01] MEDS: Acetaminophen 500 MG Tablet PO ×2 (02:14→08:22)
[2020-06-01 02:26] LABS: Bedside Glucose 121 mg/dL (70-110)
--- NOTE | 2020-06-01 05:55 | RAD_ITS ---
STUDY: X-RAY CHEST REASON FOR EXAM: Female, 49 years old. abnormal cxr on 05/31/20 TECHNIQUE: PA and lateral views of the chest. COMPARISON: May 31, 2020 FINDINGS: Worsening left lower lung increased opacities. There is focal fluid level suggesting cavitary lesion. There is no demonstrated pleural abnormality. Normal size heart. Normal mediastinum and janes. Normal visualized pulmonary arteries. Normal visualized aortic arch and descending thoracic aorta. Normal visualized thoracic spine. Normal visualized ribs, clavicles, and shoulders. There is no demonstrated abnormality of the visualized soft tissue structures of the upper abdomen. RAD/Chest PA and Lateral IMPRESSION: Worsening left lower lung infiltrate with suggestion of cavitary region. CT recommended for further evaluation. Electronically Signed: Boubacar Logan MD at 9:02 EDT , Service support ,
[2020-06-01] MEDS: 0.9% Saline Lock 10 ML Syringe IV (06:14)
[2020-06-01] MEDS: Levothyroxine 100 MCG Tablet 200 MCG PO (06:17)
[2020-06-01] MEDS: cycloBENZAPRine HCl 10 MG Tablet PO (06:17)
[2020-06-01 06:25] LABS: Bedside Glucose 274 mg/dL (70-110)
[2020-06-01] MEDS: Insulin Lispro 100 UNIT/ML INSULN.PEN SC (06:28)
[2020-06-01 06:39] LABS: Absolute Lymphocyte Count 2.75 X10^3/uL (0.83-4.51); Absolute Neutrophil Count 3.8 X10^3/uL (2.0-7.7); Basophil# 0.05 X10^3/uL; Basophil% 0.7 % (0-1); Eosinophil# 0.15 X10^3/uL; Hematocrit 34.1 % (37-47); Hemoglobin 10.6 g/dL (12.0-15.0); Lymphocyte # 2.75 X10^3/ul (4.0); Lymphocyte % 37.3 % (19-41); Mean Corp Hgb Conc 31.1 g/dL (32-36); Mean Corpuscular Hgb 27.2 pg (27.0-32.0); Mean Corpuscular Volume 87.7 fL (81-99); Mean Platelet Vol. 9.6 fl (6.2-12.0); Monocyte# 0.56 X10^3/uL; Monocyte% 7.6 % (0-10); NRBC Flagged by Analyzer 0 % (0-5); Neutrophil # 3.83 X10^3/uL (2.7-7.7); Platelet Count 166 K/mm3 (150-450); RBC Distribution Width CV 14.1 % (11.6-14.6); RBC Distribution Width SD 45.1 fl (35.1-43.9); Red Blood Count 3.89 M/mm3 (4.2-5.4); White Blood Count 7.4 K/mm3 (4.4-11.0)
[2020-06-01 07:33] LABS: Anion Gap 2 (5-15); BUN 7 mg/dL (7-18); Calcium,Total 7.5 mg/dL (8.5-10.1); Chloride 105 mmol/L (98-107); Creatinine, Serum 0.54 mg/dL (0.55-1.02); EST Glomerular Filtration Rate 127 mL/min (>60); Est Glom Filt Rate - Afr Amer 154 mL/min (>60); Estimated Creatinine Clearance 122.55 ml/min; Glucose 279 mg/dL (74-106); Potassium 3.8 mmol/L (3.5-5.1); Sodium Level 135 mmol/L (136-145)
[2020-06-01 07:50] VITALS: O2SAT 94
--- NOTE | 2020-06-01 07:51 | PCM.PN.HOSP ---
Patient Problems: Active and Suspected Problems Steroid-induced hyperglycemia (Acute) Dehydration (Acute) Elevated lactic acid level (Acute) Cervical radicular pain (Acute) Vitals/I&O's: Vital Signs Temp Pulse Resp BP Pulse Ox 97.9 F 93 16 120/76 94 06/01/20 02:10 06/01/20 02:10 06/01/20 02:10 06/01/20 02:10 06/01/20 07:50 Oxygen Delivery Method Room Air Weight: 91.3 kg Body Mass Index (BMI) 31.5 Finger Stick Blood Glucose 90 Intake and Output for Last 24 Hours 05/30/20 05/31/20 06/01/20 23:59 23:59 23:59 Intake Total 1999 2342.5 / 2342.5 Balance 1999 2342.5 / 2342.5 Laboratory Results 05/31/20 19:43: Acetone Level NEGATIVE 05/31/20 19:45: WBC 9.6, RBC 4.57, Hgb 12.6, Hct 39.5, MCV 86.4, MCH 27.6, MCHC 31.9 L, RDW Std Deviation 44.1 H, RDW Coeff of Tere 14.4, Plt Count 219, MPV 10.1, Immature Gran % (Auto) 0.400, Neut % (Auto) 54.1, Lymph % (Auto) 35.6, [place] % (Auto) 7.3, Eos % (Auto) 2.0, Baso % (Auto) 0.6, Absolute Neuts (auto) 5.2, Absolute Lymphs (auto) 3.42, Nucleated RBC % 0 05/31/20 19:45: PT 13.2, INR 1.1, APTT 28.9 05/31/20 19:45: Sodium 134 L, Potassium 3.6, Chloride 99, Carbon Dioxide 29.0, Anion Gap 6, BUN 9, Creatinine 0.79, Estim Creat Clear Calc 83.77, Est GFR (MDRD) Af Amer 99, Est GFR (MDRD) Non-Af 82, BUN/Creatinine Ratio 11.4, Glucose 216 H, Calcium 8.9, Magnesium 1.5 L, Total Bilirubin 0.30, AST 75 H, ALT 45, Alkaline Phosphatase 182 H, Troponin I < 0.015, Total Protein 8.0, Albumin 3.2, Globulin 4.8 H, Albumin/Globulin Ratio 0.7 L, Lipase 62 L 05/31/20 19:45: Lactic Acid 3.5 H* 05/31/20 20:05: Urine Color Yellow, Urine Clarity Sl. Cloudy, Urine pH 5.0, Ur Specific [place] 1.010, Urine Protein Negative, Urine Glucose (UA) 1000 H, Urine Ketones Negative, Urine Occult Blood Negative, Urine Nitrite Negative, Urine Bilirubin Negative, Urine Urobilinogen Normal, Ur Leukocyte Esterase 100 H, Urine RBC 0 SEEN, Urine WBC 0-5 SEEN, Ur Squamous Epith Cells 0-5 SEEN, Urine Bacteria 0 SEEN, Urine Mucus 0 SEEN 05/31/20 22:18: POC Glucose 90 05/31/20 23:31: POC Glucose 88 06/01/20 00:20: Lactic Acid 1.7 06/01/20 00:25: POC Glucose 62 L 06/01/20 01:02: POC Glucose 133 H 06/01/20 02:10: POC Glucose 121 H 06/01/20 06:21: POC Glucose 274 H 06/01/20 06:24: Hemoglobin A1c Pending 06/01/20 06:24: WBC 7.4, RBC 3.89 L, Hgb 10.6 L, Hct 34.1 L, MCV 87.7, MCH 27.2, MCHC 31.1 L, RDW Std Deviation 45.1 H, RDW Coeff of Tere 14.1, Plt Count 166, MPV 9.6, Immature Gran % (Auto) 0.400, Neut % (Auto) 52.0, Lymph % (Auto) 37.3, [place] % (Auto) 7.6, Eos % (Auto) 2.0, Baso % (Auto) 0.7, Absolute Neuts (auto) 3.8, Absolute Lymphs (auto) 2.75, Nucleated RBC % 0 06/01/20 06:24: Sodium 135 L, Potassium 3.8, Chloride 105, Carbon Dioxide 28.0, Anion Gap 2 L, BUN 7, Creatinine 0.54 L, Estim Creat Clear Calc 122.55, Est GFR (MDRD) Af Amer 154, Est GFR (MDRD) Non-Af 127, BUN/Creatinine Ratio 13.0, Glucose 279 H, Calcium 7.5 L Current Medications Acetaminophen (Tylenol) 500 mg PO Q6H CHELSEY Last Admin: 06/01/20 02:14 Dose: 500 mg Documented by: Cyclobenzaprine HCl (Flexeril) 10 mg PO TID PRN PRN PRN Reason: MUSCLE SPAMS Last Admin: 06/01/20 06:17 Dose: 10 mg Documented by: Dextrose (D50w Syringe) 0 gm IV X1 PRN; Protocol PRN Reason: Hypoglycemia Enoxaparin Sodium (Lovenox) 40 mg SC DAILY CHELSEY Glucagon () 1 mg IM .X1 PRN PRN Reason: Hypoglycemia Sodium Chloride () 1,000 mls @ 150 mls/hr IV .Q6H40M CHELSEY Last Infusion: 06/01/20 05:55 Dose: 150 mls/hr Documented by: Insulin Human Lispro (Humalog Kwikpen (Bkc)) 0 unit SC ACHS & 3AM CHELSEY; Protocol Last Admin: 06/01/20 06:28 Dose: 2 units Documented by: Levetiracetam (Keppra Tablet) 500 mg PO BID [facility] Levothyroxine Sodium (Synthroid) 200 mcg PO DAILY@0600 [facility] Last Admin: 06/01/20 06:17 Dose: 200 mcg Documented by: Nutritional Formula (Lactose Free) (Glucerna Shake) 120 ml PO 4X/DAY [facility] Ondansetron HCl (Zofran) 4 mg IV Q8H PRN PRN PRN Reason: NAUSEA/VOMITING Oxycodone HCl (Oxyir) 5 mg PO Q6H PRN PRN PRN Reason: Pain Score 6-8/10 Last Admin: 06/01/20 02:13 Dose: 5 mg Documented by: Senna/Docusate Sodium (Senokot-S, Kristina-Colace) 2 tablet PO BID PRN PRN PRN Reason: Constipation Sodium Chloride () 10 - 40 ml IV UD PRN PRN Reason: SALINE FLUSH Last Admin: 06/01/20 06:14 Dose: 10 ml Documented by: STROKE Vital Signs/Narrative: Vital Signs Pulse Ox 06/01/20 07:50 94 Medical Necessity - Tobacco Use Smoking Status: Current every day smoker Tobacco Use: Cigarettes Assessment/Plan All Active Problems Steroid-induced hyperglycemia (Acute) Dehydration (Acute) Elevated lactic acid level (Acute) Cervical radicular pain (Acute)
[2020-06-01 08:00] VITALS: RESP 18
[2020-06-01 08:04] LABS: Hemoglobin A1c 10.3 % (3.8-5.6)
[2020-06-01 08:10] VITALS: BP 122/77; PULSE 83; RESP 16; TEMP 36.6; O2SAT 98
--- NOTE | 2020-06-01 09:15 | DCINST_ITS ---
- Discharge Diagnoses Current Active Problems: Current Active and Chronic Problems Diabetes (Chronic) Steroid-induced hyperglycemia (Acute) Dehydration (Acute) Elevated lactic acid level (Acute) Cervical radicular pain (Acute) You will use the following diet at home:: Calorie/Carbohydrate Controlled (specify 1200, 1400, etc) - 1800 Your food should be the consistency of: Regular Discharge Activity: May not drive while taking narcotic pain medications. Instructions: ED Diabetic Hyperglycemia, ED HYPOGLYCEMIA Insulin Rxn, ED CERVICAL RADICULOPATHY Allergies/Adverse Reactions: Allergies NSAIDS (Non-Steroidal Anti-Inflamma Allergy (Verified 05/31/20 19:19) Swelling ketorolac [From Toradol] Adverse Reaction (Verified 06/01/20 00:01) headache tramadol Adverse Reaction (Verified 06/01/20 00:01) headache Medications to take at Discharge Insulin Glargine,Hum.rec.anlog [Lantus] 50 unit SQ QHS 05/10/20 Levetiracetam [Keppra] 500 mg PO BID 05/10/20 Levothyroxine Sodium [Unithroid] 200 mcg PO DAILY 05/10/20 cycloBENZAPRine HCl [Flexeril] 10 mg PO TID PRN #20 tab 05/21/20 Oxycodone HCl/Acetaminophen [Oxycodone-Acetaminophen 5-325] 1 ea PO Q6H PRN PRN 4 Days #16 tablet 06/01/20 Senna/Docusate Sodium [Senokot-S] 2 tab PO BID PRN PRN #20 tab 06/01/20 cycloBENZAPRine HCl [Flexeril] 10 mg PO TID PRN PRN #21 tab 06/01/20 The following prescriptions were given: cycloBENZAPRine HCl [Flexeril] 10 mg PO TID PRN PRN #21 tab PRN Reason: MUSCLE SPAMS Transmission Status: Pending to [facility] Oxycodone HCl/Acetaminophen [Oxycodone-Acetaminophen 5-325] 1 ea PO Q6H PRN PRN 4 Days #16 tablet PRN Reason: pain Transmission Status: Sent to [facility] Senna/Docusate Sodium [Senokot-S] 2 tab PO BID PRN PRN #20 tab PRN Reason: Constipation Transmission Status: Pending to [facility] Phys[facility] [Primary Care Provider] - As soon as possible Test Results: Test results from this visit will be discussed in further detail at your follow- up appointment, if applicable. Proposed Discharge Date: 06/01/20
--- NOTE | 2020-06-01 09:17 | PCM.DC.SUM ---
Discharge Date and Diagnosis Date of Admission: 05/31/20 Date of Discharge: 06/01/20 - Primary Discharge Diagnosis Acute Problems: Active Problems Steroid-induced hyperglycemia (Acute) Dehydration (Acute) Elevated lactic acid level (Acute) Cervical radicular pain (Acute) - Secondary Discharge Diagnosis Chronic Problems: Chronic Problems History of type 1 diabetes mellitus (Chronic) Hypothyroidism (Chronic) Diabetes (Chronic) Hospital Course and Treatment Imaging Results: Clinical Impression(s) from Imaging Studies Chest X-Ray 05/31/20 21:09 IMPRESSION: Vague tubular density over the left lung base thought to be artifactual. The possibility of mass or infiltrate cannot be definitively ruled out the absence of comparison studies. Electronically Signed: Ajit Miller DO at 21:42 EDT Tel [phone], Service support , Chest X-Ray 06/01/20 05:55 IMPRESSION: Worsening left lower lung infiltrate with suggestion of cavitary region. CT recommended for further evaluation. Electronically Signed: Boubacar Logan MD at 9:02 EDT , Service support , Summary of Care Provided: The patient is a 49 year old F with past medical history significant for diabetes mellitus type 2 who presented with hyperglycemia Patient had apparently been prescribed steroid for intractable cervical radiculopathy. Blood glucose levels were apparently higher than 600 on her glucometer at home. Admitted to regular nursing floor where patient was managed with systemic insulin as well as IV fluid. Her glucose levels did improve. Steroids discontinued. She was discharged home instructed to follow-up with her PCP for subsequent care. - Physical Exam Vitals/I&O's: Vital Signs Temp Pulse Resp BP Pulse Ox 97.9 F 93 16 120/76 94 06/01/20 02:10 06/01/20 02:10 06/01/20 02:10 06/01/20 02:10 06/01/20 07:50 Oxygen Delivery Method Room Air Weight: 91.3 kg Body Mass Index (BMI) 31.5 Finger Stick Blood Glucose 90 Intake and Output for Last 24 Hours 05/30/20 05/31/20 06/01/20 23:59 23:59 23:59 Intake Total 1999 2342.5 / 2342.5 Balance 1999 2342.5 / 2342.5 General: Oriented x3 Lungs: Diminished Cardiovascular: Regular rate, Regular Rhythm Psych/Mental Status: Normal Affect Laboratory Results 05/31/20 19:43: Acetone Level NEGATIVE 05/31/20 19:45: WBC 9.6, RBC 4.57, Hgb 12.6, Hct 39.5, MCV 86.4, MCH 27.6, MCHC 31.9 L, RDW Std Deviation 44.1 H, RDW Coeff of Tere 14.4, Plt Count 219, MPV 10.1, Immature Gran % (Auto) 0.400, Neut % (Auto) 54.1, Lymph % (Auto) 35.6, Rooks % (Auto) 7.3, Eos % (Auto) 2.0, Baso % (Auto) 0.6, Absolute Neuts (auto) 5.2, Absolute Lymphs (auto) 3.42, Nucleated RBC % 0 05/31/20 19:45: PT 13.2, INR 1.1, APTT 28.9 05/31/20 19:45: Sodium 134 L, Potassium 3.6, Chloride 99, Carbon Dioxide 29.0, Anion Gap 6, BUN 9, Creatinine 0.79, Estim Creat Clear Calc 83.77, Est GFR (MDRD) Af Amer 99, Est GFR (MDRD) Non-Af 82, BUN/Creatinine Ratio 11.4, Glucose 216 H, Calcium 8.9, Magnesium 1.5 L, Total Bilirubin 0.30, AST 75 H, ALT 45, Alkaline Phosphatase 182 H, Troponin I < 0.015, Total Protein 8.0, Albumin 3.2, Globulin 4.8 H, Albumin/Globulin Ratio 0.7 L, Lipase 62 L 05/31/20 19:45: Lactic Acid 3.5 H* 05/31/20 20:05: Urine Color Yellow, Urine Clarity Sl. Cloudy, Urine pH 5.0, Ur Specific [place] 1.010, Urine Protein Negative, Urine Glucose (UA) 1000 H, Urine Ketones Negative, Urine Occult Blood Negative, Urine Nitrite Negative, Urine Bilirubin Negative, Urine Urobilinogen Normal, Ur Leukocyte Esterase 100 H, Urine RBC 0 SEEN, Urine WBC 0-5 SEEN, Ur Squamous Epith Cells 0-5 SEEN, Urine Bacteria 0 SEEN, Urine Mucus 0 SEEN 05/31/20 22:18: POC Glucose 90 05/31/20 23:31: POC Glucose 88 06/01/20 00:20: Lactic Acid 1.7 06/01/20 00:25: POC Glucose 62 L 06/01/20 01:02: POC Glucose 133 H 06/01/20 02:10: POC Glucose 121 H 06/01/20 06:21: POC Glucose 274 H 06/01/20 06:24: Hemoglobin A1c 10.3 H 06/01/20 06:24: WBC 7.4, RBC 3.89 L, Hgb 10.6 L, Hct 34.1 L, MCV 87.7, MCH 27.2, MCHC 31.1 L, RDW Std Deviation 45.1 H, RDW Coeff of Tere 14.1, Plt Count 166, MPV 9.6, Immature Gran % (Auto) 0.400, Neut % (Auto) 52.0, Lymph % (Auto) 37.3, Rooks % (Auto) 7.6, Eos % (Auto) 2.0, Baso % (Auto) 0.7, Absolute Neuts (auto) 3.8, Absolute Lymphs (auto) 2.75, Nucleated RBC % 0 06/01/20 06:24: Sodium 135 L, Potassium 3.8, Chloride 105, Carbon Dioxide 28.0, Anion Gap 2 L, BUN 7, Creatinine 0.54 L, Estim Creat Clear Calc 122.55, Est GFR (MDRD) Af Amer 154, Est GFR (MDRD) Non-Af 127, BUN/Creatinine Ratio 13.0, Glucose 279 H, Calcium 7.5 L Current Medications Acetaminophen (Tylenol) 500 mg PO Q6H [facility] Last Admin: 06/01/20 08:22 Dose: 500 mg Documented by: Cyclobenzaprine HCl (Flexeril) 10 mg PO TID PRN PRN PRN Reason: MUSCLE SPAMS Last Admin: 06/01/20 06:17 Dose: 10 mg Documented by: Dextrose (D50w Syringe) 0 gm IV X1 PRN; Protocol PRN Reason: Hypoglycemia Enoxaparin Sodium (Lovenox) 40 mg SC DAILY CHELSEY Glucagon () 1 mg IM .X1 PRN PRN Reason: Hypoglycemia Sodium Chloride () 1,000 mls @ 150 mls/hr IV .Q6H40M [facility] Last Infusion: 06/01/20 05:55 Dose: 150 mls/hr Documented by: Insulin Human Lispro (Humalog Kwikpen (Bkc)) 0 unit SC ACHS & 3AM CHELSEY; Protocol Last Admin: 06/01/20 06:28 Dose: 2 units Documented by: Levetiracetam (Keppra Tablet) 500 mg PO BID [facility] Levothyroxine Sodium (Synthroid) 200 mcg PO DAILY@0600 [facility] Last Admin: 06/01/20 06:17 Dose: 200 mcg Documented by: Nutritional Formula (Lactose Free) (Glucerna Shake) 120 ml PO 4X/DAY [facility] Ondansetron HCl (Zofran) 4 mg IV Q8H PRN PRN PRN Reason: NAUSEA/VOMITING Oxycodone HCl (Oxyir) 5 mg PO Q6H PRN PRN PRN Reason: Pain Score 6-8/10 Last Admin: 06/01/20 08:22 Dose: 5 mg Documented by: Senna/Docusate Sodium (Senokot-S, Kristina-Colace) 2 tablet PO BID PRN PRN PRN Reason: Constipation Sodium Chloride () 10 - 40 ml IV UD PRN PRN Reason: SALINE FLUSH Last Admin: 06/01/20 06:14 Dose: 10 ml Documented by: Discharge Diet: 1800 Calorie Control Diet Discharge Activity: May not drive while taking narcotic pain medications. Home Medications: Medications to take at Discharge Insulin Glargine,Hum.rec.anlog [Lantus] 50 unit SQ QHS 05/10/20 Levetiracetam [Keppra] 500 mg PO BID 05/10/20 Levothyroxine Sodium [Unithroid] 200 mcg PO DAILY 05/10/20 cycloBENZAPRine HCl [Flexeril] 10 mg PO TID PRN #20 tab 05/21/20 Oxycodone HCl/Acetaminophen [Oxycodone-Acetaminophen 5-325] 1 ea PO Q6H PRN PRN 4 Days #16 tab 06/01/20 Senna/Docusate Sodium [Senokot-S] 2 tab PO BID PRN PRN #20 tab 06/01/20 cycloBENZAPRine HCl [Flexeril] 10 mg PO TID PRN PRN #21 tab 06/01/20 Following Prescrptions Were Given to Patient: cycloBENZAPRine HCl [Flexeril] 10 mg PO TID PRN PRN #21 tab PRN Reason: MUSCLE SPAMS Transmission Status: Received by [facility] Oxycodone HCl/Acetaminophen [Oxycodone-Acetaminophen 5-325] 1 ea PO Q6H PRN PRN 4 Days #16 tab PRN Reason: pain Transmission Status: Received by [facility] Senna/Docusate Sodium [Senokot-S] 2 tab PO BID PRN PRN #20 tab PRN Reason: Constipation Transmission Status: Received by [facility] [Primary [facility] Provider] - As soon as possible Patient Instructions: ED Diabetic Hyperglycemia, ED HYPOGLYCEMIA Insulin Rxn, ED CERVICAL RADICULOPATHY Disposition: Home Minutes spent on discharge:: 35 Medical Necessity - Tobacco Use Smoking Status: Current every day smoker Tobacco Use: Cigarettes Meaningful Use Info Meaningful Use Diagnoses (Choose all that apply): None applicable OBSV E&M: 26231 Observation care discharge
[2020-06-01] MEDS: levETIRAcetam 500 MG Tablet PO (10:36)
[2020-06-01 10:59] VITALS: BP 128/66; PULSE 74; RESP 18; TEMP 36.9; O2SAT 98
== END 2020-06-01 10:58 | disposition home or self-care (01) ==
LOC: ED 22:07 → MS3 23:22
PROVIDERS: Admitting Provider Hospitalist; Emergency Provider Emergency Medicine; Visit Provider Internal Medicine
DX: E10.65 Type 1 diabetes mellitus with hyperglycemia (principal); T38.0X5A Adverse effect of glucocorticoids and synthetic analogues, initial encounter; E86.0 Dehydration; Z79.899 Other long term (current) drug therapy; Z79.4 Long term (current) use of insulin; M54.12 Radiculopathy, cervical region; F17.200 Nicotine dependence, unspecified, uncomplicated; G40.909 Epilepsy, unspecified, not intractable, without status epilepticus; E06.3 Autoimmune thyroiditis
CPT/HCPCS: 36415; 71045; 71046; 80048; 80053; 81001; 82009; 82962; 83036; 83605; 83690; 83735; 84484; 85025; 85610; 85730; 93005; 96360; 96361; 99218; 99285; J7030; A4216; G0378

== ENCOUNTER 2020-06-05 20:54 | Inpatient (IN) | payer OTHER, SELFPAY ==
[2020-05-31 23:43] VITALS: BMI 31.5
[2020-06-05 20:56] VITALS: BP 140/80; PULSE 118; RESP 34; TEMP 37.2; O2SAT 98; BMI 30.6
[2020-06-05 20:59] VITALS: BP 140/80; PULSE 117; RESP 24; O2SAT 99
--- NOTE | 2020-06-05 21:36 | EKG12_ITS ---
Test Reason : SOB Blood Pressure : / mmHG Vent. Rate : 111 BPM Atrial Rate : 111 BPM P-R Int : 134 ms QRS Dur : 072 ms QT Int : 328 ms P-R-T Axes : 040 035 052 degrees QTc Int : 446 ms Sinus tachycardia Otherwise normal ECG Confirmed by SAM SHEIKH, LORI ([id number]), magazine editor BENJAMIN HUNG ([id number]) on 06/07/2020 4:25:57 PM Referred By: Shanice Gamino Confirmed By:LORI VARGAS MD
--- NOTE | 2020-06-05 21:37 | CT_ITS ---
STUDY: CTA CHEST REASON FOR EXAM: Female, 49 years old. LT SIDED CHEST PAIN,SOB,RECENT ADMISSION FOR HYPERGLYCEMIA AND DEHYDRATION -- HX:DIABETES,SEIZURES,JUSTUS THYROIDITIS RADIATION DOSAGE (If Supplied By Facility): CTDIvol = ( 12.46 ) mGy, DLP = ( 528.71 ) mGycm TECHNIQUE: The examination was performed with the intravenous administration of IV 100mL Isovue-370. Post-processing of the angiographic images was performed, with multiplanar reformation and 3D reconstruction. Individualized dose optimization techniques were used for this CT. COMPARISON: None. FINDINGS: Normal enhancement of the main pulmonary artery and right and left pulmonary arteries. Normal enhancement of the bilateral peripheral pulmonary arteries. There is no demonstrated pulmonary embolism. Normal thoracic aorta and visualized great vessels. There is no demonstrated aortic dissection. Normal heart and pericardium. Normal mediastinum. Normal hilar regions. Normal visualized trachea and bronchi. 2 rounded lesions are present in the lateral left lung base, measuring 39 x 30 mm more anteriorly and 37 x 25 mm more posteriorly, as measured on image 92 series 2. Both lesions contain areas of internal cavitation and/or necrosis. Differential includes necrotic pneumonia (more likely), evolving intrapulmonary abscesses, and neoplasm (less likely). Pulmonology consultation may be indicated. Normal pleura. Normal chest wall structures. Normal osseous structures. Normal visualized upper abdomen. CT/CTA Chest W/WO Contrast IMPRESSION: No evidence of pulmonary embolus. 2. Rounded lesions in the left lung base containing areas of cavitation. Differential includes necrotic pneumonia (more likely), evolving intrapulmonary abscesses, and neoplasm (less likely). Pulmonology consultation may be indicated. Electronically Signed: Eris Newell MD at 22:35 EDT Tel , Service support ,
[2020-06-05] MEDS: Ondansetron 4 MG/2 ML Vial IV (21:52)
[2020-06-05] MEDS: 0.9% Normal Saline 1,000 ML 999 ML IV (21:52)
[2020-06-05] MEDS: morphine 8 MG/ML Syringe 6 MG IV (21:53)
--- NOTE | 2020-06-05 22:00 | RAD_ITS ---
STUDY: X-RAY CHEST REASON FOR EXAM: Female, 49 years old. SOB; SEVERE CHRONIC PAIN IN RT SHOULDER TECHNIQUE: Single frontal view of the chest. COMPARISON: 06/01/2020 FINDINGS: Cervical spine fusions. 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 There is no demonstrated pleural abnormality. Normal size heart. Normal mediastinum and janes. Normal visualized pulmonary arteries. Normal visualized aortic arch and descending thoracic aorta. Normal visualized thoracic spine. Normal visualized ribs, clavicles, and shoulders. There is no demonstrated abnormality of the visualized soft tissue structures of the upper abdomen. 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 Electronically Signed: Eris Newell MD at 22:30 EDT Tel , Service support ,
[2020-06-05 22:01] LABS: Absolute Lymphocyte Count 3.12 X10^3/uL (0.83-4.51); Absolute Neutrophil Count 7.7 X10^3/uL (2.0-7.7); Basophil# 0.06 X10^3/uL; Basophil% 0.5 % (0-1); Eosinophil# 0.15 X10^3/uL; Eosinophils% 1.2 % (0-5); Hematocrit 38.5 % (37-47); Hemoglobin 12.2 g/dL (12.0-15.0); Lymphocyte # 3.12 X10^3/ul (4.0); Lymphocyte % 25.8 % (19-41); Mean Corp Hgb Conc 31.7 g/dL (32-36); Mean Corpuscular Hgb 27.2 pg (27.0-32.0); Mean Corpuscular Volume 85.7 fL (81-99); Mean Platelet Vol. 9.4 fl (6.2-12.0); Monocyte# 0.95 X10^3/uL; Monocyte% 7.9 % (0-10); NRBC Flagged by Analyzer 0 % (0-5); Neutrophil # 7.72 X10^3/uL (2.7-7.7); Platelet Count 219 K/mm3 (150-450); RBC Distribution Width CV 14.6 % (11.6-14.6); RBC Distribution Width SD 44.9 fl (35.1-43.9); Red Blood Count 4.49 M/mm3 (4.2-5.4); White Blood Count 12.1 K/mm3 (4.4-11.0)
[2020-06-05 22:17] LABS: International Normalized Ratio 1.1; Prothrombin Time (Protime)PT. 13.6 SECONDS (11.7-14.9)
[2020-06-05 22:24] LABS: D-Dimer Quantitative (DVT/PE) 0.87 FEU/ug/m (0.27-0.49)
[2020-06-05 22:26] LABS: Anion Gap 6 (5-15); BUN 8 mg/dL (7-18); BUN/Creat Ratio 10.9 RATIO (10-20); Calcium,Total 8.7 mg/dL (8.5-10.1); Chloride 102 mmol/L (98-107); Creatinine, Serum 0.73 mg/dL (0.55-1.02); EST Glomerular Filtration Rate 89 mL/min (>60); Est Glom Filt Rate - Afr Amer 108 mL/min (>60); Estimated Creatinine Clearance 90.65 ml/min; Glucose 226 mg/dL (74-106); Potassium 3.9 mmol/L (3.5-5.1); Sodium Level 136 mmol/L (136-145)
[2020-06-05 23:02] VITALS: BP 130/79; PULSE 114; RESP 18; O2SAT 95
--- NOTE | 2020-06-05 23:40 | PCM.HP.STD ---
Problem List (1) Lung abscess Status: Acute Qualifiers: Pulmonary abscess pneumonia presence: with pneumonia Laterality: left Lung location: lower lobe of lung Qualified Code(s): J85.1 - Abscess of lung with pneumonia (2) Hypothyroidism Status: Chronic Qualifiers: Hypothyroidism type: unspecified Qualified Code(s): E03.9 - Hypothyroidism, unspecified (3) Diabetes Status: Chronic Qualifiers: Diabetes mellitus type: type 2 Diabetes mellitus complication status: with other specified complication History of Present Illness Date of Admission: 06/06/20 Chief Complaint: Left sided chest pain, night sweats, cough - 3 days The patient is a 49 year old F with past medical history of Leida's thyroiditis, seizure disorder, cervical radiculopathy, type 2 DM who was recently admitted on 05/31/20 with hyperglycemia related to steroid use seen with complaints of left-sided chest pain, dry cough and night sweats ongoing for about 3 days. She denied any fever or chills. She admits to some diarrhea that started today. She had 1 loose bowel movement. Denied any sick contacts. Daughter in the ED showed temperature of 99F, heart rate 118, blood pressure 140/80, respiratory rate 34, SPO2 was 98% on room air. WBC count of 12.1, hemoglobin 12.2, platelet count 219, d-dimer 0.87, BMP is unremarkable. Troponin x1 is negative. Chest x-ray showed stable left basilar alveolar disease with internal cavitary component. CTA of the chest showed 2 rounded lesions in the left lung base with internal cavitation and/or necrosis. Past Medical History Past Medical History (Chronic Problems): Chronic Problems History of type 1 diabetes mellitus (Chronic) Hypothyroidism (Chronic) Diabetes (Chronic) Allergies NSAIDS (Non-Steroidal Anti-Inflamma Allergy (Verified 06/05/20 20:56) Swelling ketorolac [From Toradol] Adverse Reaction (Verified 06/05/20 20:56) headache tramadol Adverse Reaction (Verified 06/05/20 20:56) headache Home Medications: Ambulatory Orders Medication Instructions Recorded Insulin Glargine,Hum.rec.anlog 50 unit SQ QHS 05/10/20 [Lantus] Levothyroxine Sodium [Unithroid] 200 mcg PO DAILY 05/10/20 cycloBENZAPRine HCl [Flexeril] 10 mg PO TID PRN #20 tab 05/21/20 Senna/Docusate Sodium [Senokot-S] 2 tab PO BID PRN PRN #20 tab 06/01/20 Levetiracetam [Keppra] 500 mg PO BID #120 tab 06/03/20 Surgical History: - - Fusion and disc replacement C5-6 and C6-7 Psychiatric History: No pertinent psych hx 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 Denies: Chills, Fever, Weight Change Eyes: Denies: Blurred vision, Cataracts, Conjunctivae Inflammation, Pain, Redness, Vision Change HEENT: Denies: Difficulty Hearing, Difficulty Swallowing, Head Aches, Hearing Changes, Sinus Congestion, Sinus Drainage, Sore Throat Cardiovascular: Reports: Chest Pain. Denies: Light Headedness, Orthopnea, Palpitations, Paroxysmal Noc. Dyspnea, Syncope Respiratory: Reports: Cough - dry, Pleuritic Pain. Denies: Shortness of Breath, Shortness of breath at rest, Shortness of breath upon exertion, Sputum production Gastrointestinal: Reports: Diarrhea - one episode on day of admission. Denies: Abdominal Pain, Constipation, Nausea, Vomiting Genitourinary: Denies: Dysuria, Frequency, Incontinence Musculoskeletal: Denies: Joint Pain, Joint stiffness, Joint swelling, Joint Tenderness Skin: Denies: Dryness, Pruritis, Rash, Wounds Neurological: Denies: Numbness, Tingling, Focal weakness Psychiatric: Denies: Anxiety, Depression, Homicidal Ideations, Suicidal Ideations Hematologic/ Lymphatic: Denies: Easy Bruising, Easy Bleeding VTE Information - Inpt Only VTE Present on Admission: No VTE Pharm Prophylaxis ordered?: Yes Patient Problems: Active and Suspected Problems Lung abscess (Acute) - Physical Exam Vitals/I&O's: Vital Signs Temp Pulse Resp BP Pulse Ox 99.0 F 114 H 18 130/79 H 95 06/05/20 20:56 06/05/20 23:02 06/05/20 23:02 06/05/20 23:02 06/05/20 23:02 Oxygen Flow Rate (L/min) 99 Oxygen Delivery Method Room Air Weight: 88.7 kg Body Mass Index (BMI) 30.6 Finger Stick Blood Glucose 90 Intake and Output for Last 24 Hours 06/03/20 06/04/20 06/05/20 23:59 23:59 23:59 Intake Total 1000 / 1000 Balance 1000 / 1000 General: Alert, Oriented x3, Cooperative, No apparent distress HEENT: Atraumatic, PERRLA, EOMI, Normocephalic Oral: Moist Mucosa Neck: Supple Lungs: Normal air movement, Diminished - in left lower lung zone, Cardiovascular: Regular rate, Regular Rhythm, Normal S1, Normal S2, No murmurs Abdomen: Bowel Sounds Present, Soft, Non Tender, Non-Distended, No Hepato-splenomegaly Extremities: No edema Skin: No rashes Musculoskeletal: No Tenderness to Palpation of Joints or Extremities Lymphatic: No Cervical, Supraclavicular, or Inguinal Adenopathy Neurological: Cranial nerves II-XII grossly intact, Neuro grossly intact Psych/Mental Status: Normal Affect, Appropriate Laboratory Results 06/05/20 21:55: WBC 12.1 H, RBC 4.49, Hgb 12.2, Hct 38.5, MCV 85.7, MCH 27.2, MCHC 31.7 L, RDW Std Deviation 44.9 H, RDW Coeff of Tere 14.6, Plt Count 219, MPV 9.4, Immature Gran % (Auto) 0.600, Neut % (Auto) 64.0, Lymph % (Auto) 25.8, [place] % (Auto) 7.9, Eos % (Auto) 1.2, Baso % (Auto) 0.5, Absolute Neuts (auto) 7.7, Absolute Lymphs (auto) 3.12, Nucleated RBC % 0 06/05/20 21:55: PT 13.6, INR 1.1, D-Dimer Quant (PE/DVT) 0.87 H* 06/05/20 21:55: Sodium 136, Potassium 3.9, Chloride 102, Carbon Dioxide 28.0, Anion Gap 6, BUN 8, Creatinine 0.73, Estim Creat Clear Calc 90.65, Est GFR (MDRD) Af Amer 108, Est GFR (MDRD) Non-Af 89, BUN/Creatinine Ratio 10.9, Glucose 226 H, Calcium 8.7, Troponin I < 0.015 Current Medications Azithromycin 500 mg/ Dextrose 255 mls @ 250 mls/hr IV X1 ONE Stop: 06/06/20 00:22 Ceftriaxone Sodium (Rocephin) 1 gm in 50 mls @ 100 mls/hr IV X1 ONE Stop: 06/05/20 23:50 Assessment/Plan All Active Problems Steroid-induced hyperglycemia (Acute) Dehydration (Acute) Elevated lactic acid level (Acute) Cervical radicular pain (Acute) Lung abscess (Acute) 1. Sepsis secondary to acute cavitary pneumonia, seen on CT chest Need to rule out pulmonary TB Started on IV ceftriaxone and azithromycin in the ED;Will switch to IV Zosyn to cover for anaerobes Could possibly be from aspiration pneumonitis from previous seizure episode Pulmonology and ID consulted. Continue on IV fluids Continue to monitor in a negative pressure/airborne isolation until TB is ruled out 2. Type 2 DM, uncontrolled, continue on home insulin regiment, blood glucose checks with insulin sliding scale 3. Seizure disorder, last seizure episode was 3 days ago when she ran out of her medications Currently on Keppra. [facility] 4. Hypothyroidism/Leida's thyroiditis, on Synthroid 5. Recent neck pain, allergy to NSAIDs, improved with prednisone 6. DVT prophylaxis, low risk -early ambulation advised Inpatient E&M: 22818 Init Hosp L3
--- NOTE | 2020-06-05 23:43 | ED.DCSUM_ITS ---
- ER Visit Summary Date of Service: 06/05/20 Chief Complaint: Shortness of breath with left lower chest pain History of Present Illness: The patient is a 49 F history of TIA, diabetes and cervical radiculopathy. Patient a recent admission for hypoglycemia. She states tonight she got short of breath and started having left lower lobe chest pain. No history of DVT or PE. No known history of cardiac disease. She does have a history of smoking. Mopped assist. No leg pain swelling. Physical Examination: White female vital signs stable afebrile. Pulse ox 90% on room air. She is tachycardic 117. HEENT exam unremarkable. Lungs clear to auscultation bilaterally. Chest wall tender ribs on the left. But no subcu air, crepitus or bony deformities. Heart tachycardic rate about 117 no murmur. Abdomen soft nontender normal bowel sounds no peritoneal signs. Remedies moves all 4 calves nontender without edema or cords. Neurologically she is awake and alert. Test Results: Chest x-ray appears to have either a left lower lobe infiltrate or left lower lobe cavitary lesion. Seen on prior. CAT scan of the chest showed no PE. There is a left lower lobe necrotic pneumonia versus abscess versus malignancy but the radiologist felt was most likely pneumonia. EKG sinus tachycardia rate of 111 with no signs of ischemia unchanged from prior. CBC shows white count 12. Hemoglobin 12. No bands. Chemistries unremarkable normal creatinine and gap. Glucose 226. Troponin normal. D-dimer slightly elevated 0.87. Emergency Department Course and Treatment: Patient was treated with liter normal saline. Morphine and Zofran for pain. After the chest x-ray results were seen she was started on Rocephin and Zithromax for possible left lower lobe pneumonia. Treatment Plan: Repeat exam patient is doing well 11:19 PM. I spoke to the hospitalist she will be admitted to the PCU for negative pressure room. Started on IV antibiotics and will need pulmonology consultation for further evaluation of this lower lobe cavitary lesion. Disposition: Admission Impression: Acute left lower lobe cavitary pneumonia History of prior TIA History of diabetes This note was generated with [employer] dictation software. It may contain incorrect words, spelling, and punctuation that were not noted in review of the chart prior to signing
[2020-06-05] MEDS: Ceftriaxone 1 GM/50 ML BAG IV (23:45)
[2020-06-06] VITALS (14 sets, daily range): BP systolic 100–134; BP diastolic 65–77; PULSE 78–112; RESP 11–20; TEMP 36.1–37.2; O2SAT 93–100; BMI 30.7
--- NOTE | 2020-06-06 | SPU_PTH ---
PATIENT: DON HERNANDEZ LOC: U U#:[id number] AGE/SX: 49/F ROOM: [facility] RE06/05/[address]: Dr. Shawanda Arboleda DO : 1970 BED: 1 DIS: 06/07/2020 SPEC #: [id number] RECD: 06/06/20 09:09 STATUS: JACQUE REQ #: [id number] ROHAN: 06/06/20 00:[address]: Shawanda Arboleda DEPT: CYTOLOGY RECD BY: Philippe Kingsley ENTERED: 06/06/20 09:09 SP TYPE: Sputum Cy OTHR DR: MD Dr. Donaldo Hernández MD Dr. Robert Leininger, MD [facility] Tissues: Sputum Procedures: Pap Stain (control) Special Stain Group II Special Stain Group I AFB Stain (control) Cytospin Fluid HEADER OPERATION: Not noted PRE-OP DIAGNOSIS: Pneumonia TISSUE SUBMITTED: Sputum for cytology DIAGNOSIS CYTOLOGY Sputum for cytology (smears and cytospin): Negative for malignant cells. Special stain for acid fast bacilli is negative for organisms; matched control is appropriate. SJ:cheo 06/06/20 CYTOLOGY STUDY Slides are reviewed. CYTOLOGY GROSS Received is <1 ml of thick cloudy fluid labeled with the patient's name and and designated per the requisition as sputum. Submitted for cytology preparation. / cheo 06/06/20 TC:5 CPT: 18534, 84934
--- NOTE | 2020-06-06 | SPU_PTH ---
PATIENT: DON HERNANDEZ LOC: U U#:[id number] AGE/SX: 49/F ROOM: [facility] RE06/05/[address]: Dr. Shawanda Arboleda DO : 1970 BED: 1 DIS: 06/07/2020 SPEC #: [id number] RECD: 06/06/20 13:00 STATUS: JACQUE REPatti #: [id number] ROHAN: 06/06/20 00:[address]: Shawanda Arboleda DEPT: CYTOLOGY RECD BY: Erich Arrieta ENTERED: 06/07/20 09:11 SP TYPE: Sputum Cy OTHR DR: MD Dr. Donaldo Hernández MD Dr. Robert Leininger, MD [facility] Tissues: Sputum Procedures: Pap Stain (control) Special Stain Group II Special Stain Group I AFB Stain (control) Cytospin Fluid HEADER OPERATION: Not noted PRE-OP DIAGNOSIS: Pneumonia r/o TB TISSUE SUBMITTED: Sputum for cytology DIAGNOSIS CYTOLOGY Sputum for cytology (cytospin): Negative for malignant cells. Acute inflammation Special stain for acid fast bacilli is negative for organisms; matched control is appropriate. SJ:cheo 06/07/20 CYTOLOGY STUDY Slides are reviewed. CYTOLOGY GROSS Received is <1 ml of thin pale yellow mucoid fluid labeled with the patient's name and and designated per the requisition as sputum. Submitted for cytology preparation. /CC:cc 06/07/20 TC:2 CPT: 05895, 44660
--- NOTE | 2020-06-06 | SPU_PTH ---
PATIENT: DON HERNANDEZ LOC: U U#:[id number] AGE/SX: 49/F ROOM: [facility] RE06/05/[address]: Dr. Shawanda Arboleda DO : 1970 BED: 1 DIS: 06/07/2020 SPEC #: [id number] RECD: 06/06/20 21:50 STATUS: JACQUE REQ #: [id number] ROHAN: 06/06/20 00:[address]: Shawanda Arboleda DEPT: CYTOLOGY RECD BY: Erich Arrieta ENTERED: 06/07/20 09:12 SP TYPE: Sputum Cy OTHR DR: MD Dr. Donaldo Hernández MD Dr. Robert Leininger, MD [facility] Tissues: Sputum Procedures: Pap Stain (control) Special Stain Group II Special Stain Group I AFB Stain (control) Cytospin Fluid HEADER OPERATION: Not noted PRE-OP DIAGNOSIS: Pneumonia r/o TB TISSUE SUBMITTED: Sputum for cytology DIAGNOSIS CYTOLOGY Sputum for cytology (cytospin): Negative for malignant cells. Acute inflammation. Special stain for acid fast bacilli is negative for organisms; matched control is appropriate. PRADEEP:cheo 06/07/20 CYTOLOGY STUDY Slides are reviewed. CYTOLOGY GROSS Received is 1 ml of thick yellow mucoid fluid labeled with the patient's name and and designated per the requisition as sputum. Submitted for cytology preparation. /CC:cc 06/07/20 TC:2 CPT: 27888, 98080
[2020-06-06] MEDS: morphine 8 MG/ML Syringe 6 MG IV (00:32)
[2020-06-06] MEDS: 0.9% Normal Saline 1,000 ML 100 ML IV ×2 (01:28→14:48)
[2020-06-06] MEDS: oxyCODONE 5 MG Tablet PO ×5 (01:43→21:47)
[2020-06-06] MEDS: Morphine 2 MG/ML Syringe IV ×4 (03:52→20:13)
[2020-06-06] MEDS: 0.9% Saline Lock 10 ML Syringe IV ×2 (03:54→04:20)
[2020-06-06 04:37] LABS: Absolute Neutrophil Count 6.3 X10^3/uL (2.0-7.7); Basophil# 0.05 X10^3/uL; Basophil% 0.4 % (0-1); Eosinophil# 0.24 X10^3/uL; Eosinophils% 2.1 % (0-5); Hematocrit 35.5 % (37-47); Hemoglobin 11.3 g/dL (12.0-15.0); Lymphocyte % 33.2 % (19-41); Mean Corp Hgb Conc 31.8 g/dL (32-36); Mean Corpuscular Hgb 27.5 pg (27.0-32.0); Mean Corpuscular Volume 86.4 fL (81-99); Mean Platelet Vol. 9.2 fl (6.2-12.0); Monocyte# 0.99 X10^3/uL; Monocyte% 8.6 % (0-10); NRBC Flagged by Analyzer 0 % (0-5); Neutrophil # 6.32 X10^3/uL (2.7-7.7); Neutrophil % 55.3 % (47-70); Platelet Count 192 K/mm3 (150-450); RBC Distribution Width CV 14.7 % (11.6-14.6); RBC Distribution Width SD 45.9 fl (35.1-43.9); Red Blood Count 4.11 M/mm3 (4.2-5.4); White Blood Count 11.5 K/mm3 (4.4-11.0)
[2020-06-06 04:53] LABS: ALB/GLOB Ratio 0.6 RATIO (0.9-2.4); AST(SGOT) 32 U/L (15-37); Alanine Aminotransfer ALT/SGPT 22 U/L (13-56); Albumin, Serum 2.6 g/dL (3.2-5.0); Alkaline Phosphatase 144 U/L (45-117); Anion Gap 7 (5-15); BUN 5 mg/dL (7-18); Calcium,Total 8.1 mg/dL (8.5-10.1); Chloride 101 mmol/L (98-107); Creatinine, Serum 0.62 mg/dL (0.55-1.02); EST Glomerular Filtration Rate 108 mL/min (>60); Est Glom Filt Rate - Afr Amer 131 mL/min (>60); Estimated Creatinine Clearance 106.74 ml/min; Globulin 4.3 g/dL (2.2-4.2); Glucose 200 mg/dL (74-106); Potassium 3.6 mmol/L (3.5-5.1); Protein, Total 6.9 g/dL (6.4-8.2); Sodium Level 136 mmol/L (136-145)
[2020-06-06] MEDS: Levothyroxine 100 MCG Tablet 200 MCG PO (06:14)
--- NOTE | 2020-06-06 07:17 | PCM.CONS.PUL ---
Problem List (1) Hypothyroidism Status: Chronic Qualifiers: Hypothyroidism type: unspecified Qualified Code(s): E03.9 - Hypothyroidism, unspecified (2) Diabetes Status: Chronic Qualifiers: Diabetes mellitus type: type 2 Diabetes mellitus complication status: with other specified complication (3) Dehydration Status: Acute (4) Cervical radicular pain Status: Acute (5) Lung abscess Status: Acute Qualifiers: Pulmonary abscess pneumonia presence: with pneumonia Laterality: left Lung location: lower lobe of lung Qualified Code(s): J85.1 - Abscess of lung with pneumonia Reason for Consult Date of Consultation: 06/06/20 Reason for Consultation: Abnormal CT History of Present Illness: The patient is a 49 year old F, with past medical history listed below, who presented [facility] on 06/05/2020 secondary to shortness of breath with left-sided pleuritic chest pain. Patient reportedly had developed pleuritic type chest pain on the left over the last 48 hours. Patient was recently hospitalized with glucose issues recently, but had asked to be discharged secondary to the holiday weekend. Patient had been noted to have an abnormality on chest x-ray during that hospitalization per her report. Patient had not reported any lower extremity edema, rashes or painful joints. In the ER, patient was noted to be 90% on room air and tachycardic at 117 bpm. Lungs were reportedly clear, but patient did have tenderness to the left chest. Chest x-ray again showed the abnormality, but a CT scan of the chest showed no acute pulmonary emboli, but no chronic pneumonia versus abscess in the peripheral left lower lobe. Patient did have a leukocytosis at 12, but no bands. Glucose was elevated at 226 and d-dimer was only slightly elevated. Patient was given normal saline, morphine, Zofran and admitted with TB precautions. Patient was initially given ceftriaxone as a throat, but this was switched to Zosyn for possible anaerobic abscess. Patient reportedly does have a seizure disorder that is treated with Keppra. Patient recently had missed several doses and believes that she had a seizure on Thursday. Patient has never been told about a cavitary lesion previously. Patient was in the and traveled extensively throughout the [place] [employer]. Patient has never been incarcerated. Patient states her TB test was negative on leaving the . Patient does report a history of smoking, but is never seen a blueprint maker or had PFTs. Patient also reports a history of neck pain chronically and reports allergy to all NSAIDs and develops swelling throughout. Patient has received multiple doses of narcotics overnight and is barely able to stay awake. Patient does state that her pain is still an 8 out of 10. Review of systems otherwise negative from a constitutional, HEENT, respiratory, cardiovascular, GI, genitourinary, musculoskeletal, skin, neurologic, psychiatric and hematologic system unless stated above. Past Medical History Past Medical History (Chronic Problems): Chronic Problems History of type 1 diabetes mellitus (Chronic) Hypothyroidism (Chronic) Diabetes (Chronic) Allergies NSAIDS (Non-Steroidal Anti-Inflamma Allergy (Verified 06/05/20 20:56) Swelling ketorolac [From Toradol] Adverse Reaction (Verified 06/05/20 20:56) headache tramadol Adverse Reaction (Verified 06/05/20 20:56) headache Home Medications: Ambulatory Orders Medication Instructions Recorded Insulin Glargine,Hum.rec.anlog 50 unit SQ QHS 05/10/20 [Lantus] Levothyroxine Sodium [Unithroid] 200 mcg PO DAILY 05/10/20 cycloBENZAPRine HCl [Flexeril] 10 mg PO TID PRN #20 tab 05/21/20 Senna/Docusate Sodium [Senokot-S] 2 tab PO BID PRN PRN #20 tab 06/01/20 Levetiracetam [Keppra] 500 mg PO BID #120 tab 06/03/20 Surgical History: - - Fusion and disc replacement C5-6 and C6-7 Psychiatric History: No pertinent psych hx A[employer]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 Lesion of interest in the lateral left lower lobe showed thick-walled cysts with no obvious pleural effusion. - Physical Exam Vitals/I&O's: Vital Signs Temp Pulse Resp BP Pulse Ox 36.1 C L 100 11 L 100/65 96 06/06/20 04:00 06/06/20 04:00 06/06/20 04:00 06/06/20 04:00 06/06/20 04:00 Oxygen Flow Rate (L/min) 2 Oxygen Delivery Method Nasal Cannula Weight: 89 kg Body Mass Index (BMI) 30.7 Finger Stick Blood Glucose 90 Intake and Output for Last 24 Hours 06/04/20 06/05/20 06/06/20 23:59 23:59 23:59 Intake Total 1000 / 1000 50 / 50 Balance 1000 / 1000 50 / 50 General: Alert, Oriented x3, Cooperative, No apparent distress, - - Obese. No conversational dyspnea, but does fall asleep quickly without stimulation HEENT: Atraumatic, PERRLA, EOMI, Normocephalic, - - No scleral icterus, but does have some injection Oral: Moist Mucosa, No Gingival or Mucosal Lesions/ Ulcerations Neck: Supple, No JVD, No Nodes, Trachea Midline Lungs: No wheeze, No rales, Diminished, Rhonchi - Left base, - - Symmetric expansion, but does guard with left pain on deep inhalation Cardiovascular: Normal S1, Normal S2, No murmurs, No rub noted, No Gallop, Tachycardic Abdomen: Bowel Sounds Present, Soft, Non Tender, Non-Distended, Obese Extremities: No clubbing, No cyanosis, No edema, Capillary Refill Less than 3 Seconds Skin: No rashes, No breakdown, - - No splinter hemorrhages appreciated Musculoskeletal: No Tenderness to Palpation of Joints or Extremities Lymphatic: No Cervical, Supraclavicular, or Inguinal Adenopathy Neurological: Cranial nerves II-XII grossly intact, Neuro grossly intact, Motor Exam 5/5 strength throughout Psych/Mental Status: Flat Affect Laboratory Results 06/05/20 21:55: WBC 12.1 H, RBC 4.49, Hgb 12.2, Hct 38.5, MCV 85.7, MCH 27.2, MCHC 31.7 L, RDW Std Deviation 44.9 H, RDW Coeff of Tere 14.6, Plt Count 219, MPV 9.4, Immature Gran % (Auto) 0.600, Neut % (Auto) 64.0, Lymph % (Auto) 25.8, [place] % (Auto) 7.9, Eos % (Auto) 1.2, Baso % (Auto) 0.5, Absolute Neuts (auto) 7.7, Absolute Lymphs (auto) 3.12, Nucleated RBC % 0 06/05/20 21:55: PT 13.6, INR 1.1, D-Dimer Quant (PE/DVT) 0.87 H* 06/05/20 21:55: Sodium 136, Potassium 3.9, Chloride 102, Carbon Dioxide 28.0, Anion Gap 6, BUN 8, Creatinine 0.73, Estim Creat Clear Calc 90.65, Est GFR (MDRD) Af Amer 108, Est GFR (MDRD) Non-Af 89, BUN/Creatinine Ratio 10.9, Glucose 226 H, Calcium 8.7, Troponin I < 0.015 06/06/20 01:15: COVID-19 (DAVON) Not Detected 06/06/20 04:20: WBC 11.5 H, RBC 4.11 L, Hgb 11.3 L, Hct 35.5 L, MCV 86.4, MCH 27.5, MCHC 31.8 L, RDW Std Deviation 45.9 H, RDW Coeff of Tere 14.7 H, Plt Count 192, MPV 9.2, Immature Gran % (Auto) 0.400, Neut % (Auto) 55.3, Lymph % (Auto) 33.2, [place] % (Auto) 8.6, Eos % (Auto) 2.1, Baso % (Auto) 0.4, Absolute Neuts (auto) 6.3, Absolute Lymphs (auto) 3.80, Nucleated RBC % 0 06/06/20 04:20: Sodium 136, Potassium 3.6, Chloride 101, Carbon Dioxide 28.0, Anion Gap 7, BUN 5 L, Creatinine 0.62, Estim Creat Clear Calc 106.74, Est GFR (MDRD) Af Amer 131, Est GFR (MDRD) Non-Af 108, BUN/Creatinine Ratio 8.0 L, Glucose 200 H, Calcium 8.1 L, Total Bilirubin 0.40, AST 32, ALT 22, Alkaline Phosphatase 144 H, Total Protein 6.9, Albumin 2.6 L, Globulin 4.3 H, Albumin/Globulin Ratio 0.6 L Current Medications Acetaminophen (Tylenol) 650 mg PO Q6H PRN PRN PRN Reason: Pain Score 1-10/Temp > 100.7 F Cyclobenzaprine HCl (Flexeril) 10 mg PO TID PRN PRN PRN Reason: MUSCLE SPASMS Dextrose (D50w Syringe) 0 gm IV X1 PRN; Protocol PRN Reason: Hypoglycemia Glucagon () 1 mg IM .X1 PRN PRN Reason: Hypoglycemia Piperacillin Sod/Tazobactam (Sod 3.375 gm/ Sodium Chloride) 50 mls @ 12.5 mls/hr IV Q8 [facility] Last Admin: 06/06/20 05:00 Dose: 12.5 mls/hr Documented by: Sodium Chloride () 250 mls @ 15 mls/hr IV .[id number] PRN PRN Reason: Saline Flush Sodium Chloride () 250 mls @ 15 mls/hr IV .[id number] PRN PRN Reason: Additional IVPB Infusion Sodium Chloride () 1,000 mls @ 100 mls/hr IV .Q10H [facility] Stop: 06/06/20 16:14 Last Admin: 06/06/20 01:28 Dose: 100 mls/hr Documented by: Insulin Glargine (Lantus (Bk)) 50 units SC QHS [facility] Insulin Human Lispro (Humalog Kwikpen ([facility])) 0 unit SC ACHS [facility]; Protocol Levetiracetam (Keppra Tablet) 500 mg PO BID [facility] Levothyroxine Sodium (Synthroid) 200 mcg PO DAILY@0600 [facility] Last Admin: 06/06/20 06:14 Dose: 200 mcg Documented by: Morphine Sulfate () 2 mg IV Q3H PRN PRN PRN Reason: Pain Score 6-10/10 Last Admin: 06/06/20 03:52 Dose: 2 mg Documented by: Ondansetron HCl (Zofran) 4 mg IV Q8H PRN PRN PRN Reason: NAUSEA/VOMITING Oxycodone HCl (Oxyir) 5 mg PO Q4H PRN PRN PRN Reason: Pain Score 4-5/10 Last Admin: 06/06/20 01:43 Dose: 5 mg Documented by: Senna/Docusate Sodium (Senokot-S, Kristina-Colace) 1 tablet PO BID PRN PRN PRN Reason: Constipation Sodium Chloride () 10 - 40 ml IV UD PRN PRN Reason: SALINE FLUSH Last Admin: 06/06/20 04:20 Dose: 20 ml Documented by: Clinical Impression(s) from Imaging Studies Chest CTA 06/05/20 21:37 IMPRESSION: No evidence of pulmonary embolus. 2. Rounded lesions in the left lung base containing areas of cavitation. Differential includes necrotic pneumonia (more likely), evolving intrapulmonary abscesses, and neoplasm (less likely). Pulmonology consultation may be indicated. Electronically Signed: Eris Newell MD at 22:35 EDT Tel , Service support , Chest X-Ray 06/05/20 22:00 IMPRESSION: Stable left basilar alveolar disease with internal cavitary component. Electronically Signed: Eris Newell MD at 22:30 EDT Tel , Service support , Assessment/Plan All Active Problems Steroid-induced hyperglycemia (Acute) Dehydration (Acute) Elevated lactic acid level (Acute) Cervical radicular pain (Acute) Lung abscess (Acute) RECOMMENDATIONS: 1. Rule out for TB with [employer] protocol 2. Obtain nasal MRSA swab 3. Await infectious disease recommendations 4. Wean oxygen as tolerated 5. Attempt to limit narcotics 6. All her blood sugars closely with sliding scale as needed IMPRESSIONS: 1. Sepsis secondary to probable cavitary pneumonia Patient does have some risk factors for TB, but location and appearance is not suggestive of tuberculosis. Agree with using Zosyn for now. Would obtain a nasal MRSA swab. If this is positive, addition of vancomycin may be indicated as staph aureus can lead to cavitary lesions. Peripheral location in dependent area is suggestive of possible hematogenous spread. Could consider obtaining blood cultures, but patient is already received antibiotics. Could consider an echocardiogram for evaluation of endocarditis. Cannot exclude aspiration given patient's history of seizure disorder, but location is not typical for an aspiration abscess. Tox screen is negative. Patient denies any IV drug use. Imaging findings are not consistent with COVID-19. 2. Insulin-dependent diabetes mellitus uncontrolled Patient with recent hyperglycemia issues. This is likely secondary to underlying infection. Lung findings appear to be relatively mature and of likely been present for several days to weeks. Continue with sliding scale insulin. 3. Seizure disorder/hypothyroidism/Leida's thyroiditis/chronic pain syndrome Complicates care, management, recovery and prognosis. Some concern for possible drug-seeking given patient's reported swelling to all NSAIDs and continued reports of pain despite decreased mentation. Patient would benefit from medication to control inflammation. Prednisone is an option, but may decrease response to antibiotics/infection. Inpatient E&M: 07850 Init Hosp L3
--- NOTE | 2020-06-06 08:06 | PN_ITS ---
Patient Problems: Active and Suspected Problems Lung abscess (Acute) Subjective: Pt states that her pain in her chest and malaise had really gotten bad in last 48 hrs. Still really fatigued today. Vitals/I&O's: Vital Signs Temp Pulse Resp BP Pulse Ox 97.0 F L 106 H 15 100/65 93 06/06/20 07:36 06/06/20 07:36 06/06/20 07:36 06/06/20 07:36 06/06/20 07:36 Oxygen Flow Rate (L/min) 2 Oxygen Delivery Method Nasal Cannula Weight: 89 kg Body Mass Index (BMI) 30.7 Finger Stick Blood Glucose 90 Intake and Output for Last 24 Hours 06/04/20 06/05/20 06/06/20 23:59 23:59 23:59 Intake Total 1000 / 1000 50 / 50 Balance 1000 / 1000 50 / 50 General: Alert, Oriented x3, Cooperative, No apparent distress, Well developed, Well nourished HEENT: Atraumatic, PERRLA, EOMI, Normocephalic, EAC Clear Oral: Moist Mucosa, No Gingival or Mucosal Lesions/ Ulcerations, - - edentulous Neck: Supple, No JVD, Negative Hepatojugular Reflux, No Nodes, No Nuchal Rigidity, Trachea Midline, Thyroid Normal Size and Texture Lungs: No rhonchi, No wheeze, Rales - LLL-few Cardiovascular: Regular rate, Regular Rhythm, Normal S1, Normal S2, No murmurs, No Ectopic Activity, No rub noted, No Gallop Abdomen: Bowel Sounds Present, Soft, Non Tender, Non-Distended, Obese, No hernias noted Extremities: No clubbing, No cyanosis, No edema, Capillary Refill Less than 3 Seconds, Peripheral Pulses Normal Skin: No rashes, No breakdown Musculoskeletal: No Tenderness to Palpation of Joints or Extremities, No Muscle Wasting Lymphatic: No Cervical, Supraclavicular, or Inguinal Adenopathy Neurological: Cranial nerves II-XII grossly intact, Deep Tendon Reflexes 2+/4 and Symmetrical, Neuro grossly intact, Motor Exam 5/5 strength throughout, Muscle tone normal, Sensory exam intact to light touch and pain, Coordination normal Psych/Mental Status: Normal Affect, Appropriate, Alert and oriented to time, place, person, mood and affect Laboratory Results 06/05/20 21:55: WBC 12.1 H, RBC 4.49, Hgb 12.2, Hct 38.5, MCV 85.7, MCH 27.2, MCHC 31.7 L, RDW Std Deviation 44.9 H, RDW Coeff of Tere 14.6, Plt Count 219, MPV 9.4, Immature Gran % (Auto) 0.600, Neut % (Auto) 64.0, Lymph % (Auto) 25.8, [place] % (Auto) 7.9, Eos % (Auto) 1.2, Baso % (Auto) 0.5, Absolute Neuts (auto) 7.7, Absolute Lymphs (auto) 3.12, Nucleated RBC % 0 06/05/20 21:55: PT 13.6, INR 1.1, D-Dimer Quant (PE/DVT) 0.87 H* 06/05/20 21:55: Sodium 136, Potassium 3.9, Chloride 102, Carbon Dioxide 28.0, Anion Gap 6, BUN 8, Creatinine 0.73, Estim Creat Clear Calc 90.65, Est GFR (MDRD) Af Amer 108, Est GFR (MDRD) Non-Af 89, BUN/Creatinine Ratio 10.9, Glucose 226 H, Calcium 8.7, Troponin I < 0.015 06/06/20 01:15: COVID-19 (DAVON) Not Detected 06/06/20 04:20: WBC 11.5 H, RBC 4.11 L, Hgb 11.3 L, Hct 35.5 L, MCV 86.4, MCH 27.5, MCHC 31.8 L, RDW Std Deviation 45.9 H, RDW Coeff of Tere 14.7 H, Plt Count 192, MPV 9.2, Immature Gran % (Auto) 0.400, Neut % (Auto) 55.3, Lymph % (Auto) 33.2, [place] % (Auto) 8.6, Eos % (Auto) 2.1, Baso % (Auto) 0.4, Absolute Neuts (auto) 6.3, Absolute Lymphs (auto) 3.80, Nucleated RBC % 0 06/06/20 04:20: Sodium 136, Potassium 3.6, Chloride 101, Carbon Dioxide 28.0, Anion Gap 7, BUN 5 L, Creatinine 0.62, Estim Creat Clear Calc 106.74, Est GFR (MDRD) Af Amer 131, Est GFR (MDRD) Non-Af 108, BUN/Creatinine Ratio 8.0 L, Glucose 200 H, Calcium 8.1 L, Total Bilirubin 0.40, AST 32, ALT 22, Alkaline Phosphatase 144 H, Total Protein 6.9, Albumin 2.6 L, Globulin 4.3 H, Albumin/Globulin Ratio 0.6 L Current Medications Acetaminophen (Tylenol) 650 mg PO Q6H PRN PRN PRN Reason: Pain Score 1-10/Temp > 100.7 F Cyclobenzaprine HCl (Flexeril) 10 mg PO TID PRN PRN PRN Reason: MUSCLE SPASMS Dextrose (D50w Syringe) 0 gm IV X1 PRN; Protocol PRN Reason: Hypoglycemia Glucagon () 1 mg IM .X1 PRN PRN Reason: Hypoglycemia Piperacillin Sod/Tazobactam (Sod 3.375 gm/ Sodium Chloride) 50 mls @ 12.5 mls/hr IV Q8 [facility] Last Admin: 06/06/20 05:00 Dose: 12.5 mls/hr Documented by: Sodium Chloride () 250 mls @ 15 mls/hr IV .[id number] PRN PRN Reason: Saline Flush Sodium Chloride () 250 mls @ 15 mls/hr IV .[id number] PRN PRN Reason: Additional IVPB Infusion Sodium Chloride () 1,000 mls @ 100 mls/hr IV .Q10H [facility] Stop: 06/06/20 16:14 Last Admin: 06/06/20 01:28 Dose: 100 mls/hr Documented by: Insulin Glargine (Lantus (Bkc)) 50 units SC QHS [facility] Insulin Human Lispro (Humalog Kwikpen (Bk)) 0 unit SC ACHS [facility]; Protocol Levetiracetam (Keppra Tablet) 500 mg PO BID [facility] Levothyroxine Sodium (Synthroid) 200 mcg PO DAILY@0600 [facility] Last Admin: 06/06/20 06:14 Dose: 200 mcg Documented by: Morphine Sulfate () 2 mg IV Q3H PRN PRN PRN Reason: Pain Score 6-10/10 Last Admin: 06/06/20 03:52 Dose: 2 mg Documented by: Ondansetron HCl (Zofran) 4 mg IV Q8H PRN PRN PRN Reason: NAUSEA/VOMITING Oxycodone HCl (Oxyir) 5 mg PO Q4H PRN PRN PRN Reason: Pain Score 4-5/10 Last Admin: 06/06/20 01:43 Dose: 5 mg Documented by: Senna/Docusate Sodium (Senokot-S, Kristina-Colace) 1 tablet PO BID PRN PRN PRN Reason: Constipation Sodium Chloride () 10 - 40 ml IV UD PRN PRN Reason: SALINE FLUSH Last Admin: 06/06/20 04:20 Dose: 20 ml Documented by: STROKE Vital Signs/Narrative: Vital Signs Temp Pulse Resp BP Pulse Ox 06/06/20 07:36 97.0 F L 106 H 15 100/65 93 06/06/20 07:27 103 H Medical Necessity - Tobacco Use Smoking Status: Current every day smoker Tobacco Use: Cigarettes Assessment/Plan All Active Problems Steroid-induced hyperglycemia (Acute) Dehydration (Acute) Elevated lactic acid level (Acute) Cervical radicular pain (Acute) Lung abscess (Acute) Sepsis L Sided Pulmonary Cavitary Lesions -has had dry cough, L sided CP and night sweats for about 3 days -was in service and has foreign travel -in negative pressure for TB r/o -COVID 19 neg -blood cx pending -Vanc/Zosyn for now -SpO2 93-98% on 2 L nc--> pt doesn't wear O2 at home -Pulm consulted DM-2 -check A1c -Continue Lantus 50 U qhs -add 10 u TID with meals -continue SSI -BGT AC and HS Mild Anemia -suspect dilutional -was WNL on admission -no active bleeding -trend Hypothyroidism -continue Synthroid Seizure d/o -Continue Keppra -had a seizure 3 days ago but ran out of meds Neck Pain -chronic -better after prednisone -nsaid allergy -prn oxy available DVT prophylaxis -early mobilization Code status -Full--> d/w pt Inpatient E&M: 35436 [facility] Hosp L3
[2020-06-06] MEDS: Insulin Lispro 100 UNIT/ML INSULN.PEN SC ×4 (08:22→21:28)
[2020-06-06] MEDS: levETIRAcetam 500 MG Tablet PO ×2 (08:23→21:26)
[2020-06-06 08:35] LABS: Bedside Glucose 209 mg/dL (70-110)
--- NOTE | 2020-06-06 09:44 | CASEMGMT ---
Addendum entered by Jaja Hughes 06/06/20 11:39: Dr Arboleda aware [facility]. Phone number for Dr Arboleda provided to Sherrie @ [facility] at this time, for igew-ot-kerg call, if [facility] decides to have [facility] and if bed becomes available. Sherrie is aware pt is in isolation precautions to r/o TB. Sherrie also made aware that pt has been transferred to [facility] and contact info for Ana Burns, IMPORT MANAGER CM provided to her. Addendum entered by Jaja Hughes 06/06/20 09:53: Clinical faxed to [facility] transfer [facility]. Call placed to [facility] and spoke w/Sherrie. She states she will review clinicals to determine if pt to be transferred to [facility]. [facility] [place] center: [phone]. Coordinator: Sherrie. Ext: [phone]. Original Note: ADI JOVEL ASSESSMENT Pt in Precautions r/o TB. Call placed to pt's room at this time and assessment completed via phone conversation w/pt. ADI JOVEL introduced self and role at [facility]. Pt voices understanding and consents to assessment at this time. Pt is A/O at this time and answers all questions appropriately. Care providers, pharmacy, and demographics verified/updated at this time. PCP: ANTONELLA SHEIKH @ [facility]: Is going to start seeing Neurologist and neurosurgeon @ [facility]. Has phone appt w/[facility] Neurologist June 12. Preferred Pharmacy: [email or web address] for short-term meds. [facility] for all other meds. Insurance: [facility] benefits only Prescription Benefit: [facility] only. Pt had run out of [employer] recently, but did get a prescription filled after last hospitalization here @ [facility] and will follow up w/[facility] Neurologist for refills. Living Will/HPOA: Pt does not currently have LW/HCPOA and declines info at this time. Pt made aware that he can contact as an out-pt and make appt in the future if she decides she would like to talk with someone about this or would like to utilize [facility] social work for advanced directive completion. LNOK: Living Arrangements: Lives w/her in one-story home w/no steps to enter. Transportation: . Pt states she has not driven for about 8 months since seizures started. [facility] [employer]--states only uses as needed--which is usually after having a seizure. Has a functioning glucometer. No home O2 HHC/SNF: No history of either. Has been to OP therapy @ [facility] in [place] in the past. Pt wishes to return home and states has no concerns with going home at time of discharge. CM to follow for home oxygen needs and any further discharge planning/needs. Pt voices no concerns/needs at this time. Advised pt to ask for CM if any questions/concerns/needs arise. Voices understanding. PLAN: Home PT eval pending. Follow for cost of any meds @ discharge. Follow for any Home O2 needs. Netta OCHOA RN CM
[2020-06-06] MEDS: Enoxaparin 40 MG/0.4 ML Syringe SC (10:20)
[2020-06-06] MEDS: Insulin Lispro 100 UNIT/ML INSULN.PEN 10 UNIT SC ×3 (11:15→21:29)
[2020-06-06 11:36] LABS: Bedside Glucose 286 mg/dL (70-110)
--- NOTE | 2020-06-06 12:02 | CASEMGMT ---
Addendum entered by Ana Burns 06/06/20 13:50: Call from Sherrie at [facility] and she states that the pt has been accepted but that they do not have a bed available at this time. Updated clinicals to be sent in the am and bed availability re-assessed. Maddi JOSHI CM Original Note: Call from Sherrie at [facility] requesting CT scan and pulmonology progress note at this time. Requested info faxed at this time. Maddi JOSHI CM
[2020-06-06] MEDS: Sodium Chloride 3% 500 ML IV.SOLN. INHALATION (12:59)
[2020-06-06 13:31] LABS: Acid Fast Stain SEE PATHOLOGY REPORT; Cytology, Body Fluid / CSF SEE PATHOLOGY REPORT
--- NOTE | 2020-06-06 15:32 | PCM.HP.ID ---
Reason for Consult: Left lower lung cavitary pneumonia Consulted by: Dr Gamino History of Present Illness: The patient is a 49 year old F [] This is a 49-year-old white female with a history of seizure disorder, type 2 diabetes mellitus, Leida thyroiditis, cervical radiculopathy with previous cervical spine surgery in 2007 and and 2012 who was recently hospitalized last week for uncontrolled hyperglycemia when she was prescribed prednisone for her cervical radiculopathy. Patient was discharged June 01, earlier this week she developed left-sided pleuritic chest pain. No fevers or chills. No significant phlegm production and no hemoptysis. Patient was reevaluated because of the pleuritic chest pain and underwent a chest x-ray and a CT scan of the chest. I did review the chest film and CT scan of the chest personally, the CT scan of the chest does show to small cavitary lesions in the left lower lung. No previous chest x-ray to compare. Patient is adentulous. Patient was admitted and placed on Zosyn empirically patient was also seen by pulmonary service. - Medical History Past Medical History (Chronic Problems): Chronic Problems History of type 1 diabetes mellitus (Chronic) Hypothyroidism (Chronic) Diabetes (Chronic) Allergies/Adverse Reactions: Allergies NSAIDS (Non-Steroidal Anti-Inflamma Allergy (Verified 06/05/20 20:56) Swelling ketorolac [From Toradol] Adverse Reaction (Verified 06/05/20 20:56) headache tramadol Adverse Reaction (Verified 06/05/20 20:56) headache Home Medications: Ambulatory Orders Medication Instructions Recorded Insulin Glargine,Hum.rec.anlog 50 unit SQ QHS 05/10/20 [Lantus] Levothyroxine Sodium [Unithroid] 200 mcg PO DAILY 05/10/20 cycloBENZAPRine HCl [Flexeril] 10 mg PO TID PRN #20 tab 05/21/20 Senna/Docusate Sodium [Senokot-S] 2 tab PO BID PRN PRN #20 tab 06/01/20 Levetiracetam [Keppra] 500 mg PO BID #120 tab 06/03/20 Vital Signs Temp Pulse Resp BP Pulse Ox 98.7 F 78 20 H 125/74 H 93 06/06/20 11:00 06/06/20 12:59 06/06/20 12:59 06/06/20 11:00 06/06/20 11:00 Oxygen Flow Rate (L/min) 2 Oxygen Delivery Method Nasal Cannula Weight: 89 kg Body Mass Index (BMI) 30.7 Finger Stick Blood Glucose 90 Patient is alert and does not appear toxic. No peripheral lymphadenopathy appreciated. Oral mucosa appears normal no teeth. Lungs some coarse breath sounds left base heart exam S1-S2 abdomen soft nontender Microbiology Past 72 Hours 06/06/20 04:20 Gram Stain - Final Sputum, Expectorated/Coughed Laboratory Tests Past 24 Hrs 06/05/20 06/05/20 06/05/20 21:55 21:55 21:55 WBC 12.1 H RBC 4.49 Hgb 12.2 Hct 38.5 MCV 85.7 MCH 27.2 MCHC 31.7 L RDW Std Deviation 44.9 H RDW Coeff of Tere 14.6 Plt Count 219 MPV 9.4 Immature Gran % (Auto) 0.600 Neut % (Auto) 64.0 Lymph % (Auto) 25.8 [place] % (Auto) 7.9 Eos % (Auto) 1.2 Baso % (Auto) 0.5 Absolute Neuts (auto) 7.7 Absolute Lymphs (auto) 3.12 Nucleated RBC % 0 PT 13.6 INR 1.1 D-Dimer Quant (PE/DVT) 0.87 H* Sodium 136 Potassium 3.9 Chloride 102 Carbon Dioxide 28.0 Anion Gap 6 BUN 8 Creatinine 0.73 Estim Creat Clear Calc 90.65 Est GFR (MDRD) Af Amer 108 Est GFR (MDRD) Non-Af 89 BUN/Creatinine Ratio 10.9 Glucose 226 H Calcium 8.7 Total Bilirubin AST ALT Alkaline Phosphatase Troponin I < 0.015 Total Protein Albumin Globulin Albumin/Globulin Ratio Acid Fast Stain COVID-19 (DAVON) Miscellaneous Cytology 06/06/20 06/06/20 06/06/20 01:15 04:20 04:20 WBC 11.5 H RBC 4.11 L Hgb 11.3 L Hct 35.5 L MCV 86.4 MCH 27.5 MCHC 31.8 L RDW Std Deviation 45.9 H RDW Coeff of Tere 14.7 H Plt Count 192 MPV 9.2 Immature Gran % (Auto) 0.400 Neut % (Auto) 55.3 Lymph % (Auto) 33.2 [place] % (Auto) 8.6 Eos % (Auto) 2.1 Baso % (Auto) 0.4 Absolute Neuts (auto) 6.3 Absolute Lymphs (auto) 3.80 Nucleated RBC % 0 PT INR D-Dimer Quant (PE/DVT) Sodium 136 Potassium 3.6 Chloride 101 Carbon Dioxide 28.0 Anion Gap 7 BUN 5 L Creatinine 0.62 Estim Creat Clear Calc 106.74 Est GFR (MDRD) Af Amer 131 Est GFR (MDRD) Non-Af 108 BUN/Creatinine Ratio 8.0 L Glucose 200 H Calcium 8.1 L Total Bilirubin 0.40 AST 32 ALT 22 Alkaline Phosphatase 144 H Troponin I Total Protein 6.9 Albumin 2.6 L Globulin 4.3 H Albumin/Globulin Ratio 0.6 L Acid Fast Stain COVID-19 (DAVON) Not Detected Miscellaneous Cytology 06/06/20 13:00 WBC RBC Hgb Hct MCV MCH MCHC RDW Std Deviation RDW Coeff of Tere Plt Count MPV Immature Gran % (Auto) Neut % (Auto) Lymph % (Auto) [place] % (Auto) Eos % (Auto) Baso % (Auto) Absolute Neuts (auto) Absolute Lymphs (auto) Nucleated RBC % PT INR D-Dimer Quant (PE/DVT) Sodium Potassium Chloride Carbon Dioxide Anion Gap BUN Creatinine Estim Creat Clear Calc Est GFR (MDRD) Af Amer Est GFR (MDRD) Non-Af BUN/Creatinine Ratio Glucose Calcium Total Bilirubin AST ALT Alkaline Phosphatase Troponin I Total Protein Albumin Globulin Albumin/Globulin Ratio Acid Fast Stain Pending COVID-19 (DAVON) Miscellaneous Cytology Pending - Other Studies Radiology: [] Other Studies: [] Route of nutrition/ use of supplements: [] Nutritional Intake: [] IV Site: [] Irvin Catheter: [] - Assessment/Plan Antibiotics: [] Assessment/Plan: [] Active and Suspected Problems Lung abscess (Acute) Abnormal CT scan of the chest with cavitary lesions, at this point I would proceed with a diagnostic bronchoscopy to determine specific pathogen or other etiology for this process. If the diagnostic bronchoscopy is not definitive would proceed with a CT-guided biopsy.
[2020-06-06 17:00] LABS: Bedside Glucose 186 mg/dL (70-110)
[2020-06-06] MEDS: Acetaminophen 325 MG Tablet 650 MG PO (21:23)
[2020-06-06 21:41] LABS: Bedside Glucose 266 mg/dL (70-110)
[2020-06-06 21:59] LABS: Acid Fast Stain SEE PATHOLOGY REPORT; Cytology, Body Fluid / CSF SEE PATHOLOGY REPORT
[2020-06-07] MEDS: Morphine 2 MG/ML Syringe IV ×4 (00:14→12:05)
[2020-06-07] MEDS: oxyCODONE 5 MG Tablet PO ×2 (01:51→06:49)
[2020-06-07 03:00] VITALS: BP 149/91; PULSE 101; RESP 16; TEMP 37.4; O2SAT 98
[2020-06-07] MEDS: guaiFENesin 1,200 MG Tablet 1200 MG PO (03:00)
[2020-06-07 06:23] LABS: Absolute Lymphocyte Count 1.28 X10^3/uL (0.83-4.51); Absolute Neutrophil Count 9.2 X10^3/uL (2.0-7.7); Basophil# 0.07 X10^3/uL; Basophil% 0.6 % (0-1); Eosinophil# 0.14 X10^3/uL; Eosinophils% 1.2 % (0-5); Hematocrit 35.5 % (37-47); Hemoglobin 11.2 g/dL (12.0-15.0); Lymphocyte # 1.28 X10^3/ul (4.0); Mean Corp Hgb Conc 31.5 g/dL (32-36); Mean Corpuscular Hgb 27.3 pg (27.0-32.0); Mean Corpuscular Volume 86.6 fL (81-99); Monocyte# 0.83 X10^3/uL; Monocyte% 7.1 % (0-10); NRBC Flagged by Analyzer 0 % (0-5); Neutrophil # 9.23 X10^3/uL (2.7-7.7); Neutrophil % 79.5 % (47-70); Platelet Count 154 K/mm3 (150-450); RBC Distribution Width CV 14.6 % (11.6-14.6); RBC Distribution Width SD 45.3 fl (35.1-43.9); White Blood Count 11.6 K/mm3 (4.4-11.0)
[2020-06-07] MEDS: Enoxaparin 40 MG/0.4 ML Syringe SC (06:49)
[2020-06-07] MEDS: Levothyroxine 100 MCG Tablet 200 MCG PO (06:49)
[2020-06-07] MEDS: Insulin Lispro 100 UNIT/ML INSULN.PEN SC ×2 (06:54→12:00)
[2020-06-07 06:56] LABS: Anion Gap 5 (5-15); BUN 7 mg/dL (7-18); Calcium,Total 8.1 mg/dL (8.5-10.1); Chloride 100 mmol/L (98-107); EST Glomerular Filtration Rate 94 mL/min (>60); Est Glom Filt Rate - Afr Amer 114 mL/min (>60); Estimated Creatinine Clearance 94.54 ml/min; Glucose 190 mg/dL (74-106); Potassium 4.1 mmol/L (3.5-5.1); Sodium Level 133 mmol/L (136-145)
[2020-06-07 07:05] LABS: Bedside Glucose 178 mg/dL (70-110)
--- NOTE | 2020-06-07 08:01 | CASEMGMT ---
[facility]. Maddi JOSHI CM
[2020-06-07 08:02] VITALS: O2SAT 98
[2020-06-07 09:00] VITALS: BP 130/74; PULSE 83; RESP 18; TEMP 37.7; O2SAT 94
[2020-06-07] MEDS: 0.9% Saline Lock 10 ML Syringe IV ×2 (09:14→12:05)
--- NOTE | 2020-06-07 09:15 | NURSING ---
This nurse notified by [employer] pt was upset and crying. Pt had head in hands crying upon entrance into pt room. pt stated I hate it here, no one wants to help me I'm in so much pain. they just leave me in this room. This nurse spoke with pt about pain management and medications that were given, oxyir IR given around 0650 AM. pt stated that it wasn't doing anything, morphine given per pt request. This nurse talked at length about pt current POC and encouraged pt to speak with the doctor about questions during rounds, pt stated understanding. resting in bed, denied further needs, will continue to monitor.
[2020-06-07] MEDS: Insulin Lispro 100 UNIT/ML INSULN.PEN 10 UNIT SC (09:17)
--- NOTE | 2020-06-07 09:25 | PCM.PN.HOSP ---
Patient Problems: Active and Suspected Problems Lung abscess (Acute) Subjective: Pt states that she is having pleuritic pain with deep breathing. Pain meds do help. No SOB and on RA this am. Getting a bit antsy and depressed as she is getting lonely in isolation. Vitals/I&O's: Vital Signs Temp Pulse Resp BP Pulse Ox 99.4 F H 101 H 16 149/91 H 98 06/07/20 03:00 06/07/20 03:00 06/07/20 03:00 06/07/20 03:00 06/07/20 08:02 Oxygen Flow Rate (L/min) 2 Oxygen Delivery Method Room Air Weight: 89.8 kg Body Mass Index (BMI) 30.7 Finger Stick Blood Glucose 90 Intake and Output for Last 24 Hours 06/05/20 06/06/20 06/07/20 23:59 23:59 23:59 Intake Total 1000 / 1000 2263.33 / 2263.33 575 / 575 Balance 1000 / 1000 2263.33 / 2263.33 575 / 575 General: Alert, Oriented x3, Cooperative, No apparent distress, Well developed, Well nourished, - - Middle aged WF sitting up in bed texting, appears comfortable HEENT: Atraumatic, PERRLA, EOMI, Normocephalic, EAC Clear Oral: Moist Mucosa, No Gingival or Mucosal Lesions/ Ulcerations Neck: Supple, No JVD, No Nodes, Trachea Midline Lungs: No rhonchi - L Mid lung field, No wheeze, No rales Cardiovascular: Regular rate, Regular Rhythm, Normal S1, Normal S2, No murmurs, No Ectopic Activity, No rub noted, No Gallop Abdomen: Bowel Sounds Present, Soft, Non Tender, Non-Distended, No hernias noted Extremities: No clubbing, No cyanosis, No edema, Capillary Refill Less than 3 Seconds, Peripheral Pulses Normal Skin: No rashes, No breakdown Musculoskeletal: No Tenderness to Palpation of Joints or Extremities, No Muscle Wasting Lymphatic: No Cervical, Supraclavicular, or Inguinal Adenopathy Neurological: Cranial nerves II-XII grossly intact, Neuro grossly intact, Muscle tone normal, Coordination normal Psych/Mental Status: Normal Affect, Appropriate, - - very pleasant, Alert and oriented to time, place, person, mood and affect Microbiology Past 72 Hours 06/06/20 04:20 Sputum, Expectorated/Coughed Gram Stain - Final Laboratory Results 06/06/20 11:14: POC Glucose 286 H 06/06/20 13:00: Acid Fast Stain Pending, Miscellaneous Cytology Pending 06/06/20 16:48: POC Glucose 186 H 06/06/20 21:28: POC Glucose 266 H 06/06/20 21:50: Acid Fast Stain Pending, Miscellaneous Cytology Pending 06/07/20 06:06: WBC 11.6 H, RBC 4.10 L, Hgb 11.2 L, Hct 35.5 L, MCV 86.6, MCH 27.3, MCHC 31.5 L, RDW Std Deviation 45.3 H, RDW Coeff of Tere 14.6, Plt Count 154, MPV 9.0, Immature Gran % (Auto) 0.600, Neut % (Auto) 79.5 H, Lymph % (Auto) 11.0 L, [place] % (Auto) 7.1, Eos % (Auto) 1.2, Baso % (Auto) 0.6, Absolute Neuts (auto) 9.2 H, Absolute Lymphs (auto) 1.28, Nucleated RBC % 0 06/07/20 06:06: Sodium 133 L, Potassium 4.1, Chloride 100, Carbon Dioxide 28.0, Anion Gap 5, BUN 7, Creatinine 0.70, Estim Creat Clear Calc 94.54, Est GFR (MDRD) Af Amer 114, Est GFR (MDRD) Non-Af 94, BUN/Creatinine Ratio 10.0, Glucose 190 H, Calcium 8.1 L 06/07/20 06:45: POC Glucose 178 H Current Medications Acetaminophen (Tylenol) 650 mg PO Q6H PRN PRN PRN Reason: Pain Score 1-10/Temp > 100.7 F Last Admin: 06/06/20 21:23 Dose: 650 mg Documented by: Cyclobenzaprine HCl (Flexeril) 10 mg PO TID PRN PRN PRN Reason: MUSCLE SPASMS Dextrose (D50w Syringe) 0 gm IV X1 PRN; Protocol PRN Reason: Hypoglycemia Enoxaparin Sodium (Lovenox) 40 mg SC DAILY@0600 C[facility] Last Admin: 06/07/20 06:49 Dose: 40 mg Documented by: Glucagon () 1 mg IM .X1 PRN PRN Reason: Hypoglycemia Guaifenesin (Mucinex) 1,200 mg PO BID PRN PRN PRN Reason: COUGH Last Admin: 06/07/20 03:00 Dose: 1,200 mg Documented by: Piperacillin Sod/Tazobactam (Sod 3.375 gm/ Sodium Chloride) 50 mls @ 12.5 mls/hr IV Q8 [facility] Last Admin: 06/07/20 06:48 Dose: 12.5 mls/hr Documented by: Sodium Chloride () 250 mls @ 15 mls/hr IV .[id number] PRN PRN Reason: Saline Flush Sodium Chloride () 250 mls @ 15 mls/hr IV .[id number] PRN PRN Reason: Additional IVPB Infusion Insulin Glargine (Lantus (Bkc)) 50 units SC QHS [facility] Last Admin: 06/06/20 21:30 Dose: 50 u Documented by: Insulin Human Lispro (Humalog Kwikpen (Bk)) 0 unit SC [facility]; Protocol Last Admin: 06/07/20 06:54 Dose: 1 u Documented by: Insulin Human Lispro (Humalog Kwikpen (Bkc)) 10 unit SC [facility] Last Admin: 06/07/20 09:17 Dose: 10 units Documented by: Levetiracetam (Keppra Tablet) 500 mg PO BID [facility] Last Admin: 06/06/20 21:26 Dose: 500 mg Documented by: Levothyroxine Sodium (Synthroid) 200 mcg PO DAILY@0600 [facility] Last Admin: 06/07/20 06:49 Dose: 200 mcg Documented by: Morphine Sulfate () 2 mg IV Q3H PRN PRN PRN Reason: Pain Score 6-10/10 Last Admin: 06/07/20 09:14 Dose: 2 mg Documented by: Ondansetron HCl (Zofran) 4 mg IV Q8H PRN PRN PRN Reason: NAUSEA/VOMITING Oxycodone HCl (Oxyir) 5 mg PO Q4H PRN PRN PRN Reason: Pain Score 4-5/10 Last Admin: 06/07/20 06:49 Dose: 5 mg Documented by: Senna/Docusate Sodium (Senokot-S, Kristina-Colace) 1 tablet PO BID PRN PRN PRN Reason: Constipation Sodium Chloride () 10 - 40 ml IV UD PRN PRN Reason: SALINE FLUSH Last Admin: 06/07/20 09:14 Dose: 10 ml Documented by: STROKE Vital Signs/Narrative: Vital Signs Pulse Ox 06/07/20 08:02 98 Medical Necessity - Tobacco Use Smoking Status: Current every day smoker Tobacco Use: Cigarettes Assessment/Plan All Active Problems Steroid-induced hyperglycemia (Acute) Dehydration (Acute) Elevated lactic acid level (Acute) Cervical radicular pain (Acute) Lung abscess (Acute) Sepsis L Sided Pulmonary Cavitary Lesions -has had dry cough, L sided CP and night sweats for about 3 days upon admission -was in service and has foreign travel -in negative pressure for TB r/o -awaiting all sputums to result (1/3 done and looks predominantly like saliva) -COVID 19 neg -Bronch tomorrow if still here and if non-diagnostic will need CT guided bx -Vanc/Zosyn for now -SpO2 93-98% on 2 L nc--> pt doesn't wear O2 at home -ID following -Pulm pulm following DM-2 (uncontrolled) -A1c 10.3 -increase Lantus to 60 U qhs -increase to 15 u TID with meals -continue SSI -BGT AC and HS Mild Anemia -suspect dilutional -stable -no active bleeding -trend Hypothyroidism -continue Synthroid Seizure d/o -Continue Keppra -had a seizure 3 days ago but ran out of meds Neck Pain -chronic -better after prednisone -nsaid allergy -prn oxy available DVT prophylaxis -early mobilization Code status -Full--> d/w pt Dispo -[facility] and [facility] her [facility] -awaiting more information Inpatient E&M: 28264 Subs Hosp L3
--- NOTE | 2020-06-07 10:07 | CASEMGMT ---
Addendum entered by Ana Burns 06/07/20 10:47: Dr. Hernandez aware that [facility] Maddi JOSHI CM Addendum entered by Ana Burns 06/07/20 10:45: Accepting physician at [facility] is Ivelisse Crook, hospitalist. Maddi JOSHI CM Addendum entered by Ana Burns 06/07/20 10:40: Sherrie from [facility] transfer center updated on vitals at this time and after speaking with [facility] hospitalist, they are still accepting pt at this time and transport has been set up for 1230. PCU charge, RN, and placement secretary updated at this time, voice understanding. Christie JOSHI to have pt sign transfer consent as pt is still in airborne precautions at this time. Dr. Arboleda updated on all and signed transfer consent at this time, voices understanding. Christie JOSHI given number to call report and [facility] consent [facility] once signed by pt. Maddi JOSHI CM Original Note: Call back from Sherrie at this time [facility] transfer center and she states that they have a bed for pt at this time on [phone] ext [phone] Arboleda aware and this RN BECKA awaiting [facility] consent to transfer form to be faxed at this time. [facility] to set up transport for pt and Sherrie states she will attempt to set up around 1230. Updated set of vitals to be called back to Sherrie at [facility] transfer center. Christie JOSHI updated on all, voices understanding. Maddi JOSHI CM
[2020-06-07] MEDS: levETIRAcetam 500 MG Tablet PO (10:22)
--- NOTE | 2020-06-07 10:24 | PCM.DC.SUM ---
Discharge Date and Diagnosis - Problem List Patient Problems: Active and Suspected Problems Lung abscess (Acute) Date of Admission: 06/06/20 - Primary Discharge Diagnosis Acute Problems: Active Problems Lung abscess (Acute) - Secondary Discharge Diagnosis Chronic Problems: Chronic Problems History of type 1 diabetes mellitus (Chronic) Hypothyroidism (Chronic) Diabetes (Chronic) Hospital Course and Treatment Imaging Results: STUDY: CTA CHEST REASON FOR EXAM: Female, 49 years old. LT SIDED CHEST PAIN,SOB,RECENT ADMISSION FOR HYPERGLYCEMIA AND DEHYDRATION -- HX:DIABETES,SEIZURES,JUSTUS THYROIDITIS RADIATION DOSAGE (If Supplied By Facility): CTDIvol = ( 12.46 ) mGy, DLP = ( 528.71 ) mGycm TECHNIQUE: The examination was performed with the intravenous administration of IV 100mL Isovue-370. Post-processing of the angiographic images was performed, with multiplanar reformation and 3D reconstruction. Individualized dose optimization techniques were used for this CT. COMPARISON: None. FINDINGS: Normal enhancement of the main pulmonary artery and right and left pulmonary arteries. Normal enhancement of the bilateral peripheral pulmonary arteries. There is no demonstrated pulmonary embolism. Normal thoracic aorta and visualized great vessels. There is no demonstrated aortic dissection. Normal heart and pericardium. Normal mediastinum. Normal hilar regions. Normal visualized trachea and bronchi. 2 rounded lesions are present in the lateral left lung base, measuring 39 x 30 mm more anteriorly and 37 x 25 mm more posteriorly, as measured on image 92 series 2. Both lesions contain areas of internal cavitation and/or necrosis. Differential includes necrotic pneumonia (more likely), evolving intrapulmonary abscesses, and neoplasm (less likely). Pulmonology consultation may be indicated. Normal pleura. Normal chest wall structures. Normal osseous structures. Normal visualized upper abdomen. CT/CTA Chest W/WO Contrast IMPRESSION: No evidence of pulmonary embolus. 2. Rounded lesions in the left lung base containing areas of cavitation. Differential includes necrotic pneumonia (more likely), evolving intrapulmonary abscesses, and neoplasm (less likely). Pulmonology consultation may be indicated. Electronically Signed: Eris Newell MD at 22:35 EDT Tel , Service support , JOSE Pulmonary Operations: None Procedures: - - CT chest Summary of Care Provided: The patient is a 49 year old F who presented to the ED on 06/05/2020 with c/o L sided CP, dry cough and night sweats that had been ongoing for about 3 days. She has been hospitalized for hyperglycemia from 05/31-06/01 after being given a steroid burst for neck pain at an outside hospital. She asked to be discharged for the holiday weekend. Upon representation with her new respiratory sx a CTA was done to R/O PE and a cavitary lesion in the L lung was noted. She was placed on IV ABX (vanc and zosyn) and 3 sputums were ordered. 1/3 are back with the first appearing like saliva. She is now on Zyvox and Zosyn. Pulmonary was planning to do a bronch on 06/08 and if this was non-diagnostic a CT guided bx was recommended by JOSE. She is now on RA with SpO2 of 94-98% but still having pleuritic pain. Her insurance is [employer] the CT and a bed is available and they are requesting transfer. Pt was transferred to the CT in [place] in stable condition. Patient Problems: Active and Suspected Problems Lung abscess (Acute) - Physical Exam Vitals/I&O's: Vital Signs Temp Pulse Resp BP Pulse Ox 99.4 F H 101 H 16 149/91 H 98 06/07/20 03:00 06/07/20 03:00 06/07/20 03:00 06/07/20 03:00 06/07/20 08:02 Oxygen Flow Rate (L/min) 2 Oxygen Delivery Method Room Air Weight: 89.8 kg Body Mass Index (BMI) 30.7 Finger Stick Blood Glucose 90 Intake and Output for Last 24 Hours 06/05/20 06/06/20 06/07/20 23:59 23:59 23:59 Intake Total 1000 / 1000 2263.33 / 2263.33 575 / 575 Balance 1000 / 1000 2263.33 / 2263.33 575 / 575 Microbiology Past 72 Hours 06/06/20 04:20 Sputum, Expectorated/Coughed Gram Stain - Final Laboratory Results 06/06/20 11:14: POC Glucose 286 H 06/06/20 13:00: Acid Fast Stain Pending, Miscellaneous Cytology Pending 06/06/20 16:48: POC Glucose 186 H 06/06/20 21:28: POC Glucose 266 H 06/06/20 21:50: Acid Fast Stain Pending, Miscellaneous Cytology Pending 06/07/20 06:06: WBC 11.6 H, RBC 4.10 L, Hgb 11.2 L, Hct 35.5 L, MCV 86.6, MCH 27.3, MCHC 31.5 L, RDW Std Deviation 45.3 H, RDW Coeff of Tere 14.6, Plt Count 154, MPV 9.0, Immature Gran % (Auto) 0.600, Neut % (Auto) 79.5 H, Lymph % (Auto) 11.0 L, [place] % (Auto) 7.1, Eos % (Auto) 1.2, Baso % (Auto) 0.6, Absolute Neuts (auto) 9.2 H, Absolute Lymphs (auto) 1.28, Nucleated RBC % 0 06/07/20 06:06: Sodium 133 L, Potassium 4.1, Chloride 100, Carbon Dioxide 28.0, Anion Gap 5, BUN 7, Creatinine 0.70, Estim Creat Clear Calc 94.54, Est GFR (MDRD) Af Amer 114, Est GFR (MDRD) Non-Af 94, BUN/Creatinine Ratio 10.0, Glucose 190 H, Calcium 8.1 L 06/07/20 06:45: POC Glucose 178 H Current Medications Acetaminophen (Tylenol) 650 mg PO Q6H PRN PRN PRN Reason: Pain Score 1-10/Temp > 100.7 F Last Admin: 06/06/20 21:23 Dose: 650 mg Documented by: Cyclobenzaprine HCl (Flexeril) 10 mg PO TID PRN PRN PRN Reason: MUSCLE SPASMS Dextrose (D50w Syringe) 0 gm IV X1 PRN; Protocol PRN Reason: Hypoglycemia Enoxaparin Sodium (Lovenox) 40 mg SC DAILY@0600 C[facility] Last Admin: 06/07/20 06:49 Dose: 40 mg Documented by: Glucagon () 1 mg IM .X1 PRN PRN Reason: Hypoglycemia Guaifenesin (Mucinex) 1,200 mg PO BID PRN PRN PRN Reason: COUGH Last Admin: 06/07/20 03:00 Dose: 1,200 mg Documented by: Piperacillin Sod/Tazobactam (Sod 3.375 gm/ Sodium Chloride) 50 mls @ 12.5 mls/hr IV Q8 [facility] Last Admin: 06/07/20 06:48 Dose: 12.5 mls/hr Documented by: Sodium Chloride () 250 mls @ 15 mls/hr IV .[id number] PRN PRN Reason: Saline Flush Sodium Chloride () 250 mls @ 15 mls/hr IV .[id number] PRN PRN Reason: Additional IVPB Infusion Insulin Glargine (Lantus (Bkc)) 60 units SC QHS [facility] Insulin Human Lispro (Humalog Kwikpen (Bkc)) 0 unit SC [facility]; Protocol Last Admin: 06/07/20 06:54 Dose: 1 u Documented by: Insulin Human Lispro (Humalog Kwikpen (Bkc)) 15 unit SC [facility] Levetiracetam (Keppra Tablet) 500 mg PO BID [facility] Last Admin: 06/07/20 10:22 Dose: 500 mg Documented by: Levothyroxine Sodium (Synthroid) 200 mcg PO DAILY@0600 [facility] Last Admin: 06/07/20 06:49 Dose: 200 mcg Documented by: Morphine Sulfate () 2 mg IV Q3H PRN PRN PRN Reason: Pain Score 6-10/10 Last Admin: 06/07/20 09:14 Dose: 2 mg Documented by: Ondansetron HCl (Zofran) 4 mg IV Q8H PRN PRN PRN Reason: NAUSEA/VOMITING Oxycodone HCl (Oxyir) 5 mg PO Q4H PRN PRN PRN Reason: Pain Score 4-5/10 Last Admin: 06/07/20 06:49 Dose: 5 mg Documented by: Senna/Docusate Sodium (Senokot-S, Kristina-Colace) 1 tablet PO BID PRN PRN PRN Reason: Constipation Sodium Chloride () 10 - 40 ml IV UD PRN PRN Reason: SALINE FLUSH Last Admin: 06/07/20 09:14 Dose: 10 ml Documented by: Home Medications: Medications to take at Discharge Levothyroxine Sodium [Unithroid] 200 mcg PO DAILY 05/10/20 cycloBENZAPRine HCl [Flexeril] 10 mg PO TID PRN #20 tab 05/21/20 Senna/Docusate Sodium [Senokot-S] 2 tab PO BID PRN PRN #20 tab 06/01/20 Levetiracetam [Keppra] 500 mg PO BID #120 tab 06/03/20 Acetaminophen [Tylenol Tablet] 650 mg PO Q6H PRN PRN tablet 06/07/20 Enoxaparin [Lovenox] 40 mg SC DAILY@0600 syringe 06/07/20 Guaifenesin [Mucinex] 1,200 mg PO BID PRN PRN tablet 06/07/20 Insulin Glargine [Lantus SoloStar Pen] 60 units SC QHS pen 06/07/20 Insulin Lispro [Humalog KwikPen] 15 unit SC [facility] insuln.pen 06/07/20 Insulin Lispro [Humalog KwikPen] See Protocol SC [facility] insuln.pen 06/07/20 Piperacil/Tazobactam [Zosyn] 3.375 gm IV Q8 vial 06/07/20 [facility]Primary [facility] - Medical Necessity - Tobacco Use Smoking Status: Current every day smoker Tobacco Use: Cigarettes Meaningful Use Info Meaningful Use Diagnoses (Choose all that apply): None applicable Inpatient E&M: 67140 Disch Hosp
[2020-06-07] MEDS: Insulin Lispro 100 UNIT/ML INSULN.PEN 15 UNIT SC (11:59)
[2020-06-07 12:16] LABS: Bedside Glucose 171 mg/dL (70-110)
[2020-06-07 13:06] VITALS: BP 132/75; PULSE 105; RESP 18; TEMP 36.8; O2SAT 94
--- NOTE | 2020-06-07 13:33 | NURSING ---
attempted to call report to [phone] left unit number with staff for return call for report.
== END 2020-06-07 13:31 | DRG 871 ==
LOC: ED 21:28 → ICU 06-06 07:00 → PCU 06-06 10:54
PROVIDERS: Admitting Provider Internal Medicine; Emergency Provider Emergency Medicine; Referring Provider Internal Medicine; Visit Provider Internal Medicine
DX: A41.02 Sepsis due to Methicillin resistant Staphylococcus aureus (principal); J15.212 Pneumonia due to Methicillin resistant Staphylococcus aureus; J85.1 Abscess of lung with pneumonia; M54.12 Radiculopathy, cervical region; G40.909 Epilepsy, unspecified, not intractable, without status epilepticus; E06.3 Autoimmune thyroiditis; F17.210 Nicotine dependence, cigarettes, uncomplicated; G89.4 Chronic pain syndrome; E86.0 Dehydration; T38.0X5A Adverse effect of glucocorticoids and synthetic analogues, initial encounter; E11.65 Type 2 diabetes mellitus with hyperglycemia
CPT/HCPCS: 36415; 71045; 71275; 80048; 80053; 82962; 84484; 85025; 85379; 85610; 87015; 87070; 87077; 87116; 87186; 87205; 87206; 87635; 88108; 88312; 88313; 93005; 94640; 97802; 99251; 99285; 99406; G2023; J7030; Q9967; A4216; G0463; J2405; U0003

== ENCOUNTER 2020-06-12 00:41 | Emergency (ER) | payer OTHER, SELFPAY ==
[2020-06-06 01:00] VITALS: BMI 30.7
[2020-06-12 00:42] VITALS: BP 156/85; PULSE 96; RESP 16; TEMP 36.2; O2SAT 98; BMI 32.3
[2020-06-12 00:49] VITALS: BP 156/85; PULSE 96; RESP 16; TEMP 36.2; O2SAT 98
--- NOTE | 2020-06-12 00:51 | RAD_ITS ---
HISTORY: Shortness of breath. Diagnosed with neurotic pneumonia, possibly misinterpreted as from necrotic pneumonia, one week ago. EXAM: XR Chest 2 Views: COMPARISON: June 05, 2020 FINDINGS: # of images incl. paperwork: 3 Mass within the left lateral lower lobe and on today's study costophrenic sulcus is demonstrated on the frontal radiograph and likely superimposed over the heart, the posterior aspect on the heart on the lateral radiograph. Central lucency perceived on the previous study is not as well-defined on the current study. The right lung remains clear. Assessory azygos lobe is unchanged. Some posterior spinal fixation surgery hardware is present Heart is not enlarged. No acute osseous pathology perceived. Pulmonary vascularity is distinct. No effusions. RAD/Chest PA and Lateral IMPRESSION: 3.6 cm masslike area of opacification with basilar atelectasis in the left lower lobe is very similar in appearance to the previous study of June 05, 2020. This may represent focal pneumonia with gas centrally within it to be due to central necrosis.. at 0141 Reported and signed by: Patel Lux MD Electronically Signed: Patel Lux MD at 1:40 EDT Tel , Service support ,
--- NOTE | 2020-06-12 00:51 | EKG12_ITS ---
Test Reason : DYSRHYTHMIA Blood Pressure : / mmHG Vent. Rate : 092 BPM Atrial Rate : 092 BPM P-R Int : 140 ms QRS Dur : 078 ms QT Int : 378 ms P-R-T Axes : 064 024 039 degrees QTc Int : 467 ms Normal sinus rhythm Normal ECG Confirmed by FLOAR SHEIKH, ALBA ([id number]), business editor YVONNE CLARK ([id number]) on 06/13/2020 1:17:35 PM Referred By: SEAN Confirmed By:ALBA HINES MD
--- NOTE | 2020-06-12 00:58 | ED.VIS.GEN ---
History of Present Illness Chief Complaint: Shortness of Breath Informant: Patient Onset: Days Context: Gradual Onset Timing: Continuous Current Severity: Moderate Maximum Severity: Moderate Narrative: The patient is a 49-year-old female with history significant for Leida's thyroiditis, who presents to the emergency department shortness of breath. The patient was recently hospitalized with concern for lung abscess. She underwent CTA which showed 2 small areas consistent with necrotizing pneumonia. The plan was for the patient to undergo bronchoscopy, but as she has primary [place] insurance, she wanted to be transferred there. The patient was hospitalized at the [place]. She did not undergo her bronc. She was discharged on high-dose amoxicillin on Thursday. She states yesterday, she had some mild increasing shortness of breath. She states today, it was worse. She describes generalized malaise. She denies fever but does admit to some chills and sweats. She has had a scant cough. She states her symptoms are worse if she tries to lie flat. She has been sleeping sitting up in a chair. She is not on oxygen at home. Prior similar symptoms: Yes Recent Illness/Hospitalization: Yes Past Medical History - Allergies and Home Meds Allergies/Adverse Reactions: Allergies NSAIDS (Non-Steroidal Anti-Inflamma Allergy (Verified 06/12/20 00:46) Swelling ketorolac [From Toradol] Adverse Reaction (Verified 06/12/20 00:46) headache tramadol Adverse Reaction (Verified 06/12/20 00:46) headache Primary Care Physician: [facility] [Primary Care Provider] - Prior records reviewed: Yes Past Medical History: - - Insulin-dependent diabetes, thyroiditis, recent lung abscess Surgical History: - - Fusion and disc replacement C5-6 and C6-7 Smoking Status: Current every day smoker - Family History Maternal Family History: Reports: - - Thyroidism Paternal Family History: Reports: Hypertension Review of Systems General: Reports: Chills, Malaise Eyes: Denies: Visual changes - bilaterally, Diplopia ENT: Denies: Rhinorrhea, Sore throat Cardiovascular: Denies: Chest pain, Palpitations Respiratory: Reports: Dyspnea, Cough Gastrointestinal: Denies: Abdominal pain, Nausea, Vomiting, Diarrhea, Melena, Hematochezia Genitourinary: Denies: Dysuria, Hematuria, Frequency Musculoskeletal: Denies: Back pain, Extremity Pain Skin: Denies: Rash, Wounds Neurological: Denies: Headache, Weakness, Numbness Physical Exam Vital Signs/Narrative: Vital Signs Temp Pulse Resp BP Pulse Ox 06/12/20 00:49 97.2 F L 96 16 156/85 H 98 06/12/20 00:42 97.2 F L 96 16 156/85 H 98 Inital Vital Signs reviewed: Yes General: Well nourished, Well developed, No Acute Distress Head: Normocephalic, Atraumatic Eyes: Perrl, EOMI ENT: Moist mucous membranes, No rhinorrhea Neck: Supple, Nontender Cardiovascular: Regular rate, Regular rhythm, No murmurs Respiratory: No distress, CTA bilaterally, Chest nontender Abdomen: Soft, Nontender, Nondistended, Normal bowel sounds Back: Nontender, Normal Inspection Extremities: Nontender, No edema Skin: Normal color, No rash Neurological: Alert, Oriented x3, Cranial nerves II-XII grossly intact, Normal Strength, Normal Sensation Psychological: Normal affect, Normal Mood Diagnostic/Tx/Re-eval Clinical Impression(s) from Imaging Studies Chest X-Ray 06/12/20 00:51 IMPRESSION: 3.6 cm masslike area of opacification with basilar atelectasis in the left lower lobe is very similar in appearance to the previous study of June 05, 2020. This may represent focal pneumonia with gas centrally within it to be due to central necrosis.. at 0141 Reported and signed by: Patel Lux MD Electronically Signed: Patel Lux MD at 1:40 EDT Tel , Service support , Abnormal Lab Results 06/12/20 06/12/20 06/12/20 01:00 01:00 01:00 WBC 8.9 RBC 4.43 Hgb 11.8 L Hct 38.6 MCV 87.1 MCH 26.6 L MCHC 30.6 L RDW Std Deviation 46.0 H RDW Coeff of Tere 14.5 Plt Count 244 MPV 8.9 Immature Gran % (Auto) 0.700 Neut % (Auto) 50.8 Lymph % (Auto) 38.4 [place] % (Auto) 6.6 Eos % (Auto) 2.9 Baso % (Auto) 0.6 Absolute Neuts (auto) 4.5 Absolute Lymphs (auto) 3.42 Nucleated RBC % 0 Sodium 136 Potassium 3.4 L Chloride 104 Carbon Dioxide 27.0 Anion Gap 5 BUN 9 Creatinine 0.80 Estim Creat Clear Calc 82.72 Est GFR (MDRD) Af Amer 98 Est GFR (MDRD) Non-Af 81 BUN/Creatinine Ratio 11.3 Glucose 259 H Calcium 8.6 Total Bilirubin 0.30 AST 52 H ALT 21 Alkaline Phosphatase 156 H Troponin I < 0.015 B-Natriuretic Peptide 3.1 Total Protein 8.1 Albumin 3.3 Globulin 4.8 H Albumin/Globulin Ratio 0.7 L - Medical Decision Making The patient's major complaint is of pain and shortness of breath. She was recently hospitalized with cavitary lung lesion and is currently on antibiotics. She is not hypoxic, tachypneic, or tachycardic. EKG was obtained. It demonstrated sinus rhythm. There was no acute ischemic change. Was unchanged from prior. Chest x-ray does demonstrate the necrotic infiltrative process, but there was no significant effusion, enlarged cardiac silhouette, or significant change. Labs are unremarkable. With analgesics, the patient is feeling improved. Again, I do feel that she is improving from her prior hospitalization. I will treat her pain as she does have a known lung abscess. I do feel that she is safe to continue her outpatient therapy. She is comfortable with this plan of care. Impression 1. Cavitary lung lesion 2. Dyspnea 3. Chest wall pain ED Disposition - Plan for ED Patient: Instructions: ED PNEUMONITIS Adult Prescriptions: Oxycodone HCl/Acetaminophen [Percocet 5/325] 1 tab PO Q6H PRN PRN 3 Days #12 tab PRN Reason: Pain Prescription Printed [facility]errals: [facility] [Primary Care Provider] -
[2020-06-12 01:07] LABS: Absolute Lymphocyte Count 3.42 X10^3/uL (0.83-4.51); Absolute Neutrophil Count 4.5 X10^3/uL (2.0-7.7); Basophil# 0.05 X10^3/uL; Basophil% 0.6 % (0-1); Eosinophil# 0.26 X10^3/uL; Eosinophils% 2.9 % (0-5); Hematocrit 38.6 % (37-47); Hemoglobin 11.8 g/dL (12.0-15.0); Lymphocyte # 3.42 X10^3/ul (4.0); Lymphocyte % 38.4 % (19-41); Mean Corp Hgb Conc 30.6 g/dL (32-36); Mean Corpuscular Hgb 26.6 pg (27.0-32.0); Mean Corpuscular Volume 87.1 fL (81-99); Mean Platelet Vol. 8.9 fl (6.2-12.0); Monocyte# 0.59 X10^3/uL; Monocyte% 6.6 % (0-10); NRBC Flagged by Analyzer 0 % (0-5); Neutrophil # 4.53 X10^3/uL (2.7-7.7); Neutrophil % 50.8 % (47-70); Platelet Count 244 K/mm3 (150-450); RBC Distribution Width CV 14.5 % (11.6-14.6); Red Blood Count 4.43 M/mm3 (4.2-5.4); White Blood Count 8.9 K/mm3 (4.4-11.0)
[2020-06-12] MEDS: Morphine 4 MG/ML Syringe IV (01:19)
[2020-06-12 01:28] LABS: ALB/GLOB Ratio 0.7 RATIO (0.9-2.4); AST(SGOT) 52 U/L (15-37); Alanine Aminotransfer ALT/SGPT 21 U/L (13-56); Albumin, Serum 3.3 g/dL (3.2-5.0); Alkaline Phosphatase 156 U/L (45-117); Anion Gap 5 (5-15); BUN 9 mg/dL (7-18); BUN/Creat Ratio 11.3 RATIO (10-20); Calcium,Total 8.6 mg/dL (8.5-10.1); Chloride 104 mmol/L (98-107); EST Glomerular Filtration Rate 81 mL/min (>60); Est Glom Filt Rate - Afr Amer 98 mL/min (>60); Estimated Creatinine Clearance 82.72 ml/min; Globulin 4.8 g/dL (2.2-4.2); Glucose 259 mg/dL (74-106); Potassium 3.4 mmol/L (3.5-5.1); Protein, Total 8.1 g/dL (6.4-8.2); Sodium Level 136 mmol/L (136-145)
[2020-06-12 01:31] LABS: BNP,B-Type NATRIURETIC PEPTIDE 3.1 pg/mL (0-100)
[2020-06-12 01:52] VITALS: BP 117/74; PULSE 93; RESP 14; O2SAT 95
== END 2020-06-12 01:57 | disposition home or self-care (01) ==
LOC: ED 01:11
PROVIDERS: Emergency Provider Emergency Medicine
DX: R91.1 Solitary pulmonary nodule (principal); R06.00 Dyspnea, unspecified; R07.89 Other chest pain; F17.200 Nicotine dependence, unspecified, uncomplicated; E11.9 Type 2 diabetes mellitus without complications; Z79.4 Long term (current) use of insulin
CPT/HCPCS: 71046; 80053; 83880; 84484; 85025; 93005; 96374; 99284; A4216

== ENCOUNTER 2020-06-15 16:37 | Inpatient (IN) | payer OTHER, SELFPAY ==
[2020-06-15] VITALS (9 sets, daily range): BP systolic 125–135; BP diastolic 73–81; PULSE 82–120; RESP 16; TEMP 36.6–36.9; O2SAT 98–100; BMI 30.5; BMI 31.1
--- NOTE | 2020-06-15 17:27 | EKG12_ITS ---
Test Reason : Blood Pressure : / mmHG Vent. Rate : 102 BPM Atrial Rate : 102 BPM P-R Int : 148 ms QRS Dur : 082 ms QT Int : 342 ms P-R-T Axes : 047 026 039 degrees QTc Int : 445 ms Sinus tachycardia Otherwise normal ECG Confirmed by SAM SHEIKH, LORI ([id number]), editorial manager YVONNE CLARK ([id number]) on 06/19/2020 9:21:15 AM Referred By: GINA Confirmed By:LORI VARGAS MD
--- NOTE | 2020-06-15 17:27 | ED.DCSUM_ITS ---
History of Present Illness Chief Complaint: Other, Pain/Inj Informant: Patient, Family Narrative: Patient is a 49-year-old female who presents to the emergency department for left-sided chest pain. She was diagnosed with necrotizing pneumonia last week. She was discharged from the hospital on Thursday with amoxicillin and Bactrim. She was sent home on pain medication but has since run out. She had a refill but it is coming in the mail and not supposed to arrive till Thursday. The [facility] center to the emergency department to get a refill. She states that she does have shortness of breath which does not feel worse than it has been. If she exerts herself too much she does become lightheaded. She has not had any syncopal episodes. She denies any fevers or chills. She states that she is post to remain in bed for most of the time. They are holding off on doing a lung biopsy until they trial antibiotics first. She did have a previous CT angiogram. She denies any leg swelling or calf pain. Taking a deep breath does make the pain worse. Coughing makes it worse. She is occasionally able to bring up sputum. She does have a history of diabetes. She states that her blood sugars have been very erratic. She was on prednisone. At one point her machine read in the 900s. She feels like she is very dehydrated. She has had a mild headache. Feels like her vision does get blurred occasionally. She does have a history of seizures and her Keppra was recently increased as well. Past Medical History - Allergies and Home Meds Allergies/Adverse Reactions: Allergies NSAIDS (Non-Steroidal Anti-Inflamma Allergy (Verified 06/12/20 00:46) Swelling ketorolac [From Toradol] Adverse Reaction (Verified 06/12/20 00:46) headache tramadol Adverse Reaction (Verified 06/12/20 00:46) headache Prior records reviewed: Yes Past Medical History: - - DM, hypothyroidism, lung abscess Surgical History: - - Fusion and disc replacement C5-6 and C6-7 Smoking Status: Current every day smoker - Family History Maternal Family History: Reports: - - Thyroidism Paternal Family History: Reports: Hypertension Review of Systems All systems negative except as indicated General: Reports: Malaise. Denies: Chills, Fever, Sweats Eyes: Reports: Blurred Vision - bilaterally. Denies: Visual changes - bilaterally, Diplopia ENT: Denies: Rhinorrhea, Sore throat Cardiovascular: Reports: Chest pain. Denies: Palpitations Respiratory: Reports: Dyspnea, Cough, Sputum, Dyspnea on exertion Gastrointestinal: Denies: Abdominal pain, Nausea, Vomiting, Diarrhea, Melena, Hematochezia Genitourinary: Denies: Dysuria, Hematuria, Frequency Musculoskeletal: Denies: Back pain, Extremity Pain Skin: Denies: Rash, Wounds Neurological: Reports: Headache. Denies: Weakness, Numbness Physical Exam Vital Signs/Narrative: Vital Signs Temp Pulse Resp BP Pulse Ox 06/15/20 16:49 97.8 F 120 H 16 129/81 H 98 06/15/20 16:39 97.8 F 120 H 16 129/81 H 98 Inital Vital Signs reviewed: Yes General: Well nourished, - - Patient appears ill but nontoxic Head: Normocephalic, Atraumatic Eyes: Perrl, EOMI ENT: Moist mucous membranes, No rhinorrhea Neck: Supple, Nontender Cardiovascular: Regular rhythm, No murmurs, Tachycardia Respiratory: No distress, CTA bilaterally, Chest nontender Abdomen: Soft, Nontender, Nondistended, Normal bowel sounds Back: Nontender, Normal Inspection Extremities: Nontender, No edema. Negative for: Edema, Calf Tenderness Skin: Normal color, No rash Neurological: Alert, Oriented x3, Cranial nerves II-XII grossly intact, Normal Strength, Normal Sensation Psychological: Normal affect, Normal Mood Diagnostic/Tx/Re-eval - EKG Initial EKG Interpretation: - - Rate of 102 bpm in sinus tachycardia. Normal intervals. Normal axis. No ST elevations or depressions appreciated. No T wave abnormalities. - Medical Decision Making Patient presents to the emergency department for chest pain. She has a known lung abscess. Upon arrival to the emerge department she is afebrile but tachycardic in the 120s. She has been having issues with her blood sugar control. We will recheck basic lab work along with EKG and chest x-ray. Will start IV fluids. Patient is having significant pain requiring multiple doses of pain medications. Unfortunately x-ray showed her mass/abscess to be getting larger. Will take this as she is failing outpatient antibiotic treatment. Hospitalist did request a CT scan to better categorize this. This did not show any evidence of PE. The abscess/necrotic tissue is getting larger. Will bring her into the hospital for further evaluation and management of this. She otherwise has been stable throughout ED stay. She is agreeable with this plan. ED Disposition - Plan for ED Patient: Disposition: Acute Care Hospital [facility] Diagnosis: Lung abscess, Chest pain, Hyperglycemia
[2020-06-15] MEDS: 0.9% Normal Saline 1,000 ML 999 ML IV (17:47)
--- NOTE | 2020-06-15 17:53 | RAD_ITS ---
STUDY: X-RAY CHEST REASON FOR EXAM: Female, 49 years old. CHEST PAIN. HAS A KNOWN LUNG ABSCESS TECHNIQUE: Single AP portable view of the chest. COMPARISON: CT scan 06/05/2020, chest x-ray 06/12/2020. FINDINGS: Normal lung volumes. Increased size of focal 5.3 cm soft tissue density in the lateral left lung base. No other pulmonary opacities. No effusions. Normal size heart. Normal mediastinum and janes. Normal visualized pulmonary arteries. Normal visualized aortic arch and descending thoracic aorta. Normal visualized thoracic spine. Normal visualized ribs, clavicles, and shoulders. There is no demonstrated abnormality of the visualized soft tissue structures of the upper abdomen. RAD/Chest PA and Lateral IMPRESSION: No change. Increased size of the focal pulmonary density of the anterior lateral left lung base. Electronically Signed: Figueroa Waters MD at 18:18 EDT , Service support ,
[2020-06-15 18:12] LABS: Absolute Lymphocyte Count 2.86 X10^3/uL (0.83-4.51); Absolute Neutrophil Count 4.4 X10^3/uL (2.0-7.7); Basophil# 0.03 X10^3/uL; Basophil% 0.4 % (0-1); Eosinophil# 0.18 X10^3/uL; Eosinophils% 2.2 % (0-5); Hematocrit 34.4 % (37-47); Lymphocyte # 2.86 X10^3/ul (4.0); Lymphocyte % 35.6 % (19-41); Mean Corpuscular Hgb 27.4 pg (27.0-32.0); Mean Corpuscular Volume 85.8 fL (81-99); Mean Platelet Vol. 9.4 fl (6.2-12.0); Monocyte# 0.55 X10^3/uL; Monocyte% 6.8 % (0-10); NRBC Flagged by Analyzer 0 % (0-5); Neutrophil # 4.38 X10^3/uL (2.7-7.7); Neutrophil % 54.6 % (47-70); Platelet Count 233 K/mm3 (150-450); RBC Distribution Width CV 14.2 % (11.6-14.6); RBC Distribution Width SD 43.8 fl (35.1-43.9); Red Blood Count 4.01 M/mm3 (4.2-5.4)
[2020-06-15] MEDS: Morphine 4 MG/ML Syringe IV ×2 (18:17→23:23)
[2020-06-15 18:30] LABS: Anion Gap 5 (5-15); BUN 6 mg/dL (7-18); BUN/Creat Ratio 9.1 RATIO (10-20); Calcium,Total 8.6 mg/dL (8.5-10.1); Chloride 104 mmol/L (98-107); Creatinine, Serum 0.66 mg/dL (0.55-1.02); EST Glomerular Filtration Rate 101 mL/min (>60); Est Glom Filt Rate - Afr Amer 123 mL/min (>60); Estimated Creatinine Clearance 100.27 ml/min; Glucose 280 mg/dL (74-106); Potassium 3.7 mmol/L (3.5-5.1); Sodium Level 138 mmol/L (136-145)
[2020-06-15] MEDS: HYDROmorphone 1 MG/ML Syringe IV (18:41)
--- NOTE | 2020-06-15 18:42 | CT_ITS ---
STUDY: CTA CHEST REASON FOR EXAM: Female, 49 years old. ABSCESS IN LUNGS/ ? PE RADIATION DOSAGE (If Supplied By Facility): CTDIvol = ( 13.53 ) mGy, DLP = ( 520.62 ) mGycm TECHNIQUE: The examination was performed with the intravenous administration of Isovue 300 75ml. Post-processing of the angiographic images was performed, with multiplanar reformation and 3D reconstruction. Individualized dose optimization techniques were used for this CT. COMPARISON: None. FINDINGS: Normal enhancement of the main pulmonary artery and right and left pulmonary arteries. Normal enhancement of the bilateral peripheral pulmonary arteries. There is no demonstrated pulmonary embolism. Normal thoracic aorta and visualized great vessels. There is no demonstrated aortic dissection. Normal heart and pericardium. Normal mediastinum. Normal hilar regions. Normal visualized trachea and bronchi. The lungs are hyper expanded, with flattening of the hemidiaphragms. Again seen are 2 focal soft tissue masses along the anterior lateral left lung base. The largest is more anterior. It currently has a greatest cross-sectional dimension of 4.4 cm on coronal images, whereas previously greatest dimension in the same plane was 3.6 cm. Currently, little if any cavitation remains. Findings could represent abscess with necrotic centers and neoplasm is not excluded. Consider sampling. There is now a small left pleural effusion with compressive atelectasis or infiltrate in the posterior lower left lung. No other pulmonary opacities. Normal osseous structures. Normal visualized upper abdomen. CT/CTA Chest W/WO Contrast IMPRESSION: Normal CTA chest examination, without a demonstrated pulmonary embolism or arterial dissection. Continued focal soft tissue masses in the left lung base with decrease in the amount of cavitation. Electronically Signed: Figueroa Waters MD at 19:26 EDT , Service support ,
--- NOTE | 2020-06-15 18:54 | HP.PCM_ITS ---
History of Present Illness Date of Admission: 06/15/20 Chief Complaint: chest pain. shortness of breath The patient is a 49 year old F with no significant past medical history. Patient was recently admitted and [facility] and subsequently transferred to [place] after being managed for necrotizing pneumonia and lung abscess. She was initially placed on IV vancomycin and Zosyn and subsequently placed on Zyvox and Zosyn. Plan was initially to do a bronc and if that was nondiagnostic then a CT-guided biopsy was recommended by ID. However she was transferred to the [place]. Patient was sent to the [place] in [place] and states that they decided to wait on the bronchoscopy and CT guided lung biopsy. She was subsequently discharged home on p.o. amoxicillin thousand milligrams twice daily for 30 days. Patient however states that she still has been feeling short of breath and her pain has been getting worse. Pain is worse with breathing in and out and cough is nonproductive. She denies any fever or chills, any nausea vomiting or diarrhea. Review of symptoms otherwise negative. In the ED, temperature was 98.2 Fahrenheit with pulse rate of 102 and respiratory rate of 16 with blood pressure of 135/80. She was saturating at 99% on room air. Chemistry essentially unremarkable initial troponin was negative. CBC showed hemoglobin of 11 and chest x-ray showed increased size of the focal pulmonary density of the anterior lateral left lung base. CT of the chest ordered and was pending at time of review. She has been admitted to be managed for worsening lung abscess and necrotising pneumonia.[] Past Medical History Past Medical History (Chronic Problems): Chronic Problems History of type 1 diabetes mellitus (Chronic) Hypothyroidism (Chronic) Diabetes (Chronic) Allergies NSAIDS (Non-Steroidal Anti-Inflamma Allergy (Verified 06/12/20 00:46) Swelling ketorolac [From Toradol] Adverse Reaction (Verified 06/12/20 00:46) headache tramadol Adverse Reaction (Verified 06/12/20 00:46) headache Home Medications: Ambulatory Orders Medication Instructions Recorded Levothyroxine Sodium [Unithroid] 200 mcg PO DAILY 05/10/20 Senna/Docusate Sodium [Senokot-S] 2 tab PO BID PRN PRN #20 tab 06/01/20 Acetaminophen [Tylenol Tablet] 650 mg PO Q6H PRN PRN tab 06/07/20 Insulin Lispro [Humalog KwikPen] See Protocol [facility] 06/07/20 insuln.pen Amoxicillin/Potassium Clav 1,000 mg PO BID 06/12/20 [Amox-Clav 500-125 mg Tablet] Insulin Glargine [Lantus SoloStar 50 units [facility] 06/15/20 Pen] Insulin Lispro [Humalog KwikPen] See Protocol [facility] 06/15/20 Levetiracetam [Keppra] 750 mg PO BID 06/15/20 Oxycodone [Oxyir] 1 - 2 tab PO Q6H PRN PRN 06/15/20 Surgical History: - - Fusion and disc replacement C5-6 and C6-7 Psychiatric History: No pertinent psych hx 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 Denies: Chest Pressure, Chest Tightness, Heaviness, Light Headedness, Orthopnea, Syncope Respiratory: Reports: Pleuritic Pain, Shortness of Breath, Shortness of breath at rest, Sputum production. Denies: Cough Gastrointestinal: Reports: Diarrhea. Denies: Abdominal Pain, Nausea, Vomiting Genitourinary: Denies: Dysuria Musculoskeletal: Denies: Joint Pain, Joint Tenderness Skin: Denies: Rash, Wounds Neurological: Denies: Numbness, Tingling, Focal weakness Psychiatric: Denies: Anxiety, Depression, Homicidal Ideations, Suicidal Ideations Hematologic/ Lymphatic: Denies: Easy Bruising, Easy Bleeding VTE Information - Inpt Only VTE Present on Admission: No VTE Pharm Prophylaxis ordered?: Yes Patient Problems: Active and Suspected Problems Lung abscess (Acute) Chest pain (Acute) Hyperglycemia (Acute) - Physical Exam Vitals/I&O's: Vital Signs Temp Pulse Resp BP Pulse Ox 98.2 F 102 H 16 125/78 H 99 06/15/20 18:21 06/15/20 18:43 06/15/20 18:43 06/15/20 18:43 06/15/20 18:43 Oxygen Delivery Method Room Air Weight: 195 lb Body Mass Index (BMI) 30.5 Finger Stick Blood Glucose 90 Laboratory Results 06/15/20 17:50: WBC 8.0, RBC 4.01 L, Hgb 11.0 L, Hct 34.4 L, MCV 85.8, MCH 27.4, MCHC 32.0, RDW Std Deviation 43.8, RDW Coeff of Tere 14.2, Plt Count 233, MPV 9.4, Immature Gran % (Auto) 0.400, Neut % (Auto) 54.6, Lymph % (Auto) 35.6, [place] % (Auto) 6.8, Eos % (Auto) 2.2, Baso % (Auto) 0.4, Absolute Neuts (auto) 4.4, Absolute Lymphs (auto) 2.86, Nucleated RBC % 0 06/15/20 17:50: Sodium 138, Potassium 3.7, Chloride 104, Carbon Dioxide 29.0, Anion Gap 5, BUN 6 L, Creatinine 0.66, Estim Creat Clear Calc 100.27, Est GFR (MDRD) Af Amer 123, Est GFR (MDRD) Non-Af 101, BUN/Creatinine Ratio 9.1 L, Glucose 280 H, Calcium 8.6, Troponin I < 0.015 Current Medications Iopamidol (Contrast Allergy Check) 0 ml IV X1 CHELSEY Assessment/Plan All Active Problems Steroid-induced hyperglycemia (Acute) Dehydration (Acute) Elevated lactic acid level (Acute) Cervical radicular pain (Acute) Lung abscess (Acute) Chest pain (Acute) Hyperglycemia (Acute) 49 y/op admitted with a complaint of shortness of breaht and pleuritic chest pain 1. Worsening lung abscess * Lung abscess and necrotizing pneumonia. Also on IV vancomycin and Zosyn, then Zyvox and Zosyn during admission. Subsequently was transferred [place] and states she did not have a CT-guided biopsy of bronchoscopy done. She was discharged home on p.o. amoxicillin thousand gram twice daily. * Chest x-ray on admission shows increased size of the focal pulmonary density of the anterior lateral left lung base * CBC shows no leukocytosis. * CTA of the chest ordered and is pending. * will give IV levofloxacin; sputum cultured MSSA, sensitive to levofloxacin * consult pulmonology and ID * PO tylenol, PO oxycodone and IV morphine for pain * sputum for AFBs done are still pending- I discussed witht lab, the smear is negative, and sputum culture for AFBs is pending * 2. Type 2 diabetes mellitus: On Lantus 50 units nightly. Insulin sliding scale. Accu-Cheks AC at bedtime. 3. Seizure disorder: on Keppra 4. Hypothyroidism: on levothyroxine supplementation DVT prophylaxis: lovenox COde status: full code * Patient counseled extensively about different types of CODE STATUS including full code, DNR CCA and DNR CCA. Patient elects to be full code. * Total [id number] time 16 minutes. Inpatient E&M: 44190 Init Hosp L3 Procedures: 02182 Advncd Care Plan 30 Min
[2020-06-15] MEDS: levoFLOXacin IV 750 MG/150 ML BAG 100 MG IV (20:46)
[2020-06-15] MEDS: 0.9% Normal Saline 1,000 ML 75 ML IV (20:46)
[2020-06-15] MEDS: oxyCODONE 5 MG Tablet 10 MG PO (20:46)
[2020-06-15] MEDS: 0.9% Saline Lock 10 ML Syringe IV (20:46)
[2020-06-15] MEDS: Acetaminophen 325 MG Tablet 650 MG PO (20:51)
[2020-06-15] MEDS: levETIRAcetam 750 MG Tablet PO (21:51)
[2020-06-15 22:00] LABS: Bedside Glucose 135 mg/dL (70-110)
[2020-06-16] VITALS (13 sets, daily range): BP systolic 109–139; BP diastolic 75–85; PULSE 81–107; RESP 16–18; TEMP 36.6–36.7; O2SAT 95–100
[2020-06-16] MEDS: oxyCODONE 5 MG Tablet 10 MG PO ×6 (01:03→21:19)
[2020-06-16] MEDS: Morphine 4 MG/ML Syringe IV ×2 (03:25→06:32)
[2020-06-16] MEDS: Acetaminophen 325 MG Tablet 650 MG PO ×3 (05:25→21:21)
[2020-06-16] MEDS: Levothyroxine 100 MCG Tablet 200 MCG PO (05:25)
[2020-06-16] MEDS: Insulin Lispro 100 UNIT/ML INSULN.PEN SC ×4 (06:24→21:46)
[2020-06-16 06:26] LABS: Bedside Glucose 205 mg/dL (70-110)
[2020-06-16 06:45] LABS: Absolute Lymphocyte Count 2.77 X10^3/uL (0.83-4.51); Absolute Neutrophil Count 4.9 X10^3/uL (2.0-7.7); Basophil# 0.04 X10^3/uL; Basophil% 0.5 % (0-1); Eosinophil# 0.19 X10^3/uL; Eosinophils% 2.2 % (0-5); Hematocrit 32.5 % (37-47); Hemoglobin 10.1 g/dL (12.0-15.0); Lymphocyte # 2.77 X10^3/ul (4.0); Lymphocyte % 31.4 % (19-41); Mean Corp Hgb Conc 31.1 g/dL (32-36); Mean Corpuscular Hgb 26.9 pg (27.0-32.0); Mean Corpuscular Volume 86.7 fL (81-99); Monocyte# 0.84 X10^3/uL; Monocyte% 9.5 % (0-10); NRBC Flagged by Analyzer 0 % (0-5); Neutrophil # 4.93 X10^3/uL (2.7-7.7); Neutrophil % 55.8 % (47-70); Platelet Count 220 K/mm3 (150-450); RBC Distribution Width CV 14.3 % (11.6-14.6); RBC Distribution Width SD 45.3 fl (35.1-43.9); Red Blood Count 3.75 M/mm3 (4.2-5.4); White Blood Count 8.8 K/mm3 (4.4-11.0)
[2020-06-16 06:52] LABS: Anion Gap 5 (5-15); BUN 6 mg/dL (7-18); BUN/Creat Ratio 10.4 RATIO (10-20); Calcium,Total 8.4 mg/dL (8.5-10.1); Chloride 105 mmol/L (98-107); Creatinine, Serum 0.58 mg/dL (0.55-1.02); EST Glomerular Filtration Rate 118 mL/min (>60); Est Glom Filt Rate - Afr Amer 143 mL/min (>60); Glucose 220 mg/dL (74-106); Potassium 3.5 mmol/L (3.5-5.1); Sodium Level 139 mmol/L (136-145)
--- NOTE | 2020-06-16 07:10 | PCM.PN.HOSP ---
Patient Problems: Active and Suspected Problems Lung abscess (Acute) Chest pain (Acute) Hyperglycemia (Acute) Vitals/I&O's: Vital Signs Temp Pulse Resp BP Pulse Ox 97.9 F 92 16 116/81 H 100 06/16/20 01:59 06/16/20 02:30 06/16/20 01:59 06/16/20 01:59 06/16/20 05:28 Oxygen Delivery Method Room Air Weight: 198 lb 13.711 oz Body Mass Index (BMI) 31.1 Finger Stick Blood Glucose 90 Intake and Output for Last 24 Hours 06/14/20 06/15/20 06/16/20 23:59 23:59 23:59 Intake Total 1155 / 1635 1230 / 1230 Balance 1155 / 1635 1230 / 1230 Laboratory Results 06/15/20 17:50: WBC 8.0, RBC 4.01 L, Hgb 11.0 L, Hct 34.4 L, MCV 85.8, MCH 27.4, MCHC 32.0, RDW Std Deviation 43.8, RDW Coeff of Tere 14.2, Plt Count 233, MPV 9.4, Immature Gran % (Auto) 0.400, Neut % (Auto) 54.6, Lymph % (Auto) 35.6, Gibson % (Auto) 6.8, Eos % (Auto) 2.2, Baso % (Auto) 0.4, Absolute Neuts (auto) 4.4, Absolute Lymphs (auto) 2.86, Nucleated RBC % 0 06/15/20 17:50: Sodium 138, Potassium 3.7, Chloride 104, Carbon Dioxide 29.0, Anion Gap 5, BUN 6 L, Creatinine 0.66, Estim Creat Clear Calc 100.27, Est GFR (MDRD) Af Amer 123, Est GFR (MDRD) Non-Af 101, BUN/Creatinine Ratio 9.1 L, Glucose 280 H, Calcium 8.6, Troponin I < 0.015 06/15/20 21:49: POC Glucose 135 H 06/16/20 06:18: WBC 8.8, RBC 3.75 L, Hgb 10.1 L, Hct 32.5 L, MCV 86.7, MCH 26.9 L, MCHC 31.1 L, RDW Std Deviation 45.3 H, RDW Coeff of Tere 14.3, Plt Count 220, MPV 9.0, Immature Gran % (Auto) 0.600, Neut % (Auto) 55.8, Lymph % (Auto) 31.4, Gibson % (Auto) 9.5, Eos % (Auto) 2.2, Baso % (Auto) 0.5, Absolute Neuts (auto) 4.9, Absolute Lymphs (auto) 2.77, Nucleated RBC % 0 06/16/20 06:18: Sodium 139, Potassium 3.5, Chloride 105, Carbon Dioxide 29.0, Anion Gap 5, BUN 6 L, Creatinine 0.58, Estim Creat Clear Calc 114.10, Est GFR (MDRD) Af Amer 143, Est GFR (MDRD) Non-Af 118, BUN/Creatinine Ratio 10.4, Glucose 220 H, Calcium 8.4 L 06/16/20 06:19: POC Glucose 205 H Current Medications Acetaminophen (Tylenol) 650 mg PO Q6H PRN PRN PRN Reason: Pain Score 1-10/Temp > 100.7 F Last Admin: 06/16/20 05:25 Dose: 650 mg Documented by: Dextrose (D50w Syringe) 0 gm IV X1 PRN; Protocol PRN Reason: Hypoglycemia Glucagon () 1 mg IM .X1 PRN PRN Reason: Hypoglycemia Sodium Chloride () 1,000 mls @ 75 mls/hr IV .[id number] [facility] Stop: 06/16/20 22:36 Last Infusion: 06/15/20 20:50 Dose: 0 mls/hr Documented by: Levofloxacin (Levaquin Iv) 750 mg in 150 mls @ 100 mls/hr IV Q24 [facility] Last Infusion: 06/15/20 22:37 Dose: Infused Documented by: Insulin Glargine (Lantus (Bk)) 50 units SC QHS [facility] Last Admin: 06/15/20 21:50 Dose: 50 u Documented by: Insulin Human Lispro (Humalog Kwikpen ([facility])) 0 unit SC ACHS [facility]; Protocol Last Admin: 06/16/20 06:24 Dose: 4 units Documented by: Levetiracetam (Keppra Tablet) 750 mg PO BID [facility] Last Admin: 06/15/20 21:51 Dose: 750 mg Documented by: Levothyroxine Sodium (Synthroid) 200 mcg PO DAILY@0600 [facility] Last Admin: 06/16/20 05:25 Dose: 200 mcg Documented by: Morphine Sulfate () 4 mg IV Q3H PRN PRN PRN Reason: Pain Score 6-10/10 Last Admin: 06/16/20 06:32 Dose: 4 mg Documented by: Ondansetron HCl (Zofran) 4 mg IV Q8H PRN PRN PRN Reason: NAUSEA/VOMITING Oxycodone HCl (Oxyir) 10 mg PO Q4H PRN PRN PRN Reason: Pain Score 4-5/10 Last Admin: 06/16/20 05:25 Dose: 10 mg Documented by: Senna/Docusate Sodium (Senokot-S, Kristina-Colace) 2 tablet PO BID PRN PRN PRN Reason: Constipation Sodium Chloride () 10 - 40 ml IV UD PRN PRN Reason: SALINE FLUSH Last Admin: 06/15/20 20:46 Dose: 10 ml Documented by: STROKE Vital Signs/Narrative: Vital Signs Pulse Ox 06/16/20 05:28 100 Medical Necessity - Tobacco Use Smoking Status: Current every day smoker Tobacco Use: Cigarettes Assessment/Plan All Active Problems Steroid-induced hyperglycemia (Acute) Dehydration (Acute) Elevated lactic acid level (Acute) Cervical radicular pain (Acute) Lung abscess (Acute) Chest pain (Acute) Hyperglycemia (Acute) 49 y/op admitted with a complaint of shortness of breaht and pleuritic chest pain 1. Worsening lung abscess Lung abscess and necrotizing pneumonia. Patient was treated with IV Vanco and Zosyn then Zyvox and Zosyn and was transferred to be for further work-up but she did not have CT-guided biopsy or bronchoscopy done. Instead she was discharged on p.o. amoxicillin 1000 gram twice daily. Chest x-ray on admission shows increased size of the focal pulmonary density of the anterior lateral left lung base CBC shows no leukocytosis. CTA of the chest ordered and is pending. will give IV levofloxacin; sputum cultured MSSA, sensitive to levofloxacin consult pulmonology and ID PO tylenol, PO oxycodone and IV morphine for pain sputum for AFBs done are still pending- I discussed witht lab, the smear is negative, and sputum culture for AFBs is pending 2. Type 2 diabetes mellitus: On Lantus 50 units nightly. Insulin sliding scale. Accu-Cheks AC at bedtime. 3. Seizure disorder: on Keppra 4. Hypothyroidism: on levothyroxine supplementation DVT prophylaxis: lovenox COde status: full code Patient counseled extensively about different types of CODE STATUS including full code, DNR CCA and DNR CCA. Patient elects to be full code. Total wgcd-eo-csbv time 16 minutes.
--- NOTE | 2020-06-16 07:33 | PCM.CONS.PUL ---
Reason for Consult Date of Consultation: 06/16/20 Reason for Consultation: Necrotizing pneumonia History of Present Illness: Patient is a 49-year-old female, with a history as outlined below, who presented to the emergency department on June 15 with complaints of pleuritic type chest pain. The patient was just admitted to the hospital the beginning of May for necrotizing pneumonia. She was evaluated by both pulmonary and infectious diseases here on June 06, only to be transferred to the CT 1 day later for further care. The patient was in the and traveled extensively throughout the [place] with [place] [employer]. She has never been incarcerated. She does have a previous smoking history. The patient reported that following evaluation at the [facility], she was placed on 1 g of amoxicillin twice daily with instructions to complete a 1 month treatment course. The specialist at the CT did not feel that she needed to undergo a bronchoscopy or CT-guided lung biopsy. She did report that she had an MRSA screen done through the CT which was reportedly positive. She claims that she recently ran out of her pain medications and that upon inquiring with her PCP about a refill, was told that she would not get another prescription until Thursday and was therefore referred to the emergency department to obtain a short course of pain medications. Nevertheless, the patient denies any worsening in her respiratory symptoms. On presentation to the emergency department, the patient was noted to be afebrile and hemodynamically stable. She was maintaining appropriate oxygen saturations on room air. Laboratory evaluation revealed a normal white blood cell count. Chemistry profile was unrevealing. CTA chest was obtained and personally reviewed. Again noted were 2 soft tissue densities along the peripheral aspect of the left lower lobe concerning for necrotizing pneumonia, which appear to be smaller in size with less internal cavitation than previously seen on prior chest imaging. The patient was placed on IV antibiotics and subsequently admitted to the medical surgical floor for further management. Of note, the patient's previous sputum culture was positive for MSSA. Past Medical History Past Medical History (Chronic Problems): Chronic Problems History of type 1 diabetes mellitus (Chronic) Hypothyroidism (Chronic) Diabetes (Chronic) Allergies NSAIDS (Non-Steroidal Anti-Inflamma Allergy (Verified 06/12/20 00:46) Swelling ketorolac [From Toradol] Adverse Reaction (Verified 06/12/20 00:46) headache tramadol Adverse Reaction (Verified 06/12/20 00:46) headache Home Medications: Ambulatory Orders Medication Instructions Recorded Levothyroxine Sodium [Unithroid] 200 mcg PO DAILY 05/10/20 Senna/Docusate Sodium [Senokot-S] 2 tab PO BID PRN PRN #20 tab 06/01/20 Acetaminophen [Tylenol Tablet] 650 mg PO Q6H PRN PRN tab 06/07/20 Insulin Lispro [Humalog KwikPen] See Protocol [facility] 06/07/20 insuln.pen Amoxicillin/Potassium Clav 1,000 mg PO BID 06/12/20 [Amox-Clav 500-125 mg Tablet] Insulin Glargine [Lantus SoloStar 50 units [facility] 06/15/20 Pen] Insulin Lispro [Humalog KwikPen] See Protocol [facility] 06/15/20 Levetiracetam [Keppra] 750 mg PO BID 06/15/20 Oxycodone [Oxyir] 1 - 2 tab PO Q6H PRN PRN 06/15/20 Surgical History: - - Fusion and disc replacement C5-6 and C6-7 Psychiatric History: No pertinent psych hx [employer] History: No pertinent [employer] history Smoking Status: Current every day smoker Tobacco Use: Cigarettes - *Family History Maternal History Items: - - Thyroidism Paternal History Items: Hypertension Review of Systems Constitutional: Denies: Chills, Fever Eyes: Denies: Blurred vision, Double vision HEENT: Denies: Head Aches, Sinus Congestion, Sinus Drainage Cardiovascular: Reports: Chest Pain. Denies: Edema Respiratory: Reports: Cough, Shortness of Breath, Sputum production. Denies: Hemoptysis Gastrointestinal: Denies: Abdominal Pain, Nausea, Vomiting Genitourinary: Denies: Dysuria Musculoskeletal: Denies: Joint Pain, Joint Tenderness Skin: Denies: Rash, Wounds Neurological: Denies: Numbness, Tingling, Focal weakness Psychiatric: Denies: Anxiety, Depression, Homicidal Ideations, Suicidal Ideations Hematologic/ Lymphatic: Denies: Easy Bruising, Easy Bleeding Patient Problems: Active and Suspected Problems Lung abscess (Acute) Chest pain (Acute) Hyperglycemia (Acute) Objective: The patient's most recent lab work, culture data and imaging studies have all been personally reviewed. - Physical Exam Vitals/I&O's: Vital Signs Temp Pulse Resp BP Pulse Ox 97.9 F 92 16 116/81 H 100 06/16/20 01:59 06/16/20 02:30 06/16/20 01:59 06/16/20 01:59 06/16/20 05:28 Oxygen Delivery Method Room Air Weight: 198 lb 13.711 oz Body Mass Index (BMI) 31.1 Finger Stick Blood Glucose 90 Intake and Output for Last 24 Hours 06/14/20 06/15/20 06/16/20 23:59 23:59 23:59 Intake Total 1155 / 1635 1230 / 1230 Balance 1155 / 1635 1230 / 1230 General: Alert, Oriented x3, Cooperative, No apparent distress HEENT: Atraumatic, PERRLA, Normocephalic Oral: Moist Mucosa, No Gingival or Mucosal Lesions/ Ulcerations Neck: Supple, No Nodes, Trachea Midline Lungs: Diminished, - - Faint rales in left lung base Cardiovascular: Regular rate, Regular Rhythm, No murmurs Abdomen: Bowel Sounds Present, Soft, Non Tender, Non-Distended, Obese Extremities: No clubbing, No cyanosis, No edema Skin: No breakdown Musculoskeletal: No Tenderness to Palpation of Joints or Extremities, No Muscle Wasting Lymphatic: No Cervical, Supraclavicular, or Inguinal Adenopathy Neurological: Cranial nerves II-XII grossly intact, Neuro grossly intact Psych/Mental Status: Alert and oriented to time, place, person, mood and affect Labs (Last 48 Hours) 06/15/20 06/15/20 06/15/20 17:50 17:50 21:49 WBC 8.0 RBC 4.01 L Hgb 11.0 L Hct 34.4 L MCV 85.8 MCH 27.4 MCHC 32.0 RDW Std Deviation 43.8 RDW Coeff of Tere 14.2 Plt Count 233 MPV 9.4 Immature Gran % (Auto) 0.400 Neut % (Auto) 54.6 Lymph % (Auto) 35.6 [place] % (Auto) 6.8 Eos % (Auto) 2.2 Baso % (Auto) 0.4 Absolute Neuts (auto) 4.4 Absolute Lymphs (auto) 2.86 Nucleated RBC % 0 Sodium 138 Potassium 3.7 Chloride 104 Carbon Dioxide 29.0 Anion Gap 5 BUN 6 L Creatinine 0.66 Estim Creat Clear Calc 100.27 Est GFR (MDRD) Af Amer 123 Est GFR (MDRD) Non-Af 101 BUN/Creatinine Ratio 9.1 L Glucose 280 H Calcium 8.6 Troponin I < 0.015 POC Glucose 135 H 06/16/20 06/16/20 06/16/20 06:18 06:18 06:19 WBC 8.8 RBC 3.75 L Hgb 10.1 L Hct 32.5 L MCV 86.7 MCH 26.9 L MCHC 31.1 L RDW Std Deviation 45.3 H RDW Coeff of Tere 14.3 Plt Count 220 MPV 9.0 Immature Gran % (Auto) 0.600 Neut % (Auto) 55.8 Lymph % (Auto) 31.4 [place] % (Auto) 9.5 Eos % (Auto) 2.2 Baso % (Auto) 0.5 Absolute Neuts (auto) 4.9 Absolute Lymphs (auto) 2.77 Nucleated RBC % 0 Sodium 139 Potassium 3.5 Chloride 105 Carbon Dioxide 29.0 Anion Gap 5 BUN 6 L Creatinine 0.58 Estim Creat Clear Calc 114.10 Est GFR (MDRD) Af Amer 143 Est GFR (MDRD) Non-Af 118 BUN/Creatinine Ratio 10.4 Glucose 220 H Calcium 8.4 L Troponin I POC Glucose 205 H Clinical Impression(s) from Imaging Studies Chest X-Ray 06/15/20 17:53 IMPRESSION: No change. Increased size of the focal pulmonary density of the anterior lateral left lung base. Electronically Signed: Figueroa Waters MD at 18:18 EDT , Service support , Chest CTA 06/15/20 18:42 IMPRESSION: Normal CTA chest examination, without a demonstrated pulmonary embolism or arterial dissection. Continued focal soft tissue masses in the left lung base with decrease in the amount of cavitation. Electronically Signed: Figueroa Waters MD at 19:26 EDT , Service support , Current Medications Acetaminophen (Tylenol) 650 mg PO Q6H PRN PRN PRN Reason: Pain Score 1-10/Temp > 100.7 F Last Admin: 06/16/20 05:25 Dose: 650 mg Documented by: Dextrose (D50w Syringe) 0 gm IV X1 PRN; Protocol PRN Reason: Hypoglycemia Glucagon () 1 mg IM .X1 PRN PRN Reason: Hypoglycemia Sodium Chloride () 1,000 mls @ 75 mls/hr IV .[id number] [facility] Stop: 06/16/20 22:36 Last Infusion: 06/15/20 20:50 Dose: 0 mls/hr Documented by: Vancomycin IV Pharmacy to Dose (1 ea/ Sodium Chloride) 500 mls @ 250 mls/hr IV X1 PRN; Protocol PRN Reason: Rx to Dose Piperacillin Sod/Tazobactam (Sod 3.375 gm/ Sodium Chloride) 50 mls @ 12.5 mls/hr IV Q8 [facility] Insulin Glargine (Lantus ([facility])) 50 units SC QHS [facility] Last Admin: 06/15/20 21:50 Dose: 50 u Documented by: Insulin Human Lispro (Humalog Kwikpen ([facility])) 0 unit SC ACHS [facility]; Protocol Last Admin: 06/16/20 06:24 Dose: 4 units Documented by: Levetiracetam (Keppra Tablet) 750 mg PO BID [facility] Last Admin: 06/15/20 21:51 Dose: 750 mg Documented by: Levothyroxine Sodium (Synthroid) 200 mcg PO DAILY@0600 [facility] Last Admin: 06/16/20 05:25 Dose: 200 mcg Documented by: Ondansetron HCl (Zofran) 4 mg IV Q8H PRN PRN PRN Reason: NAUSEA/VOMITING Oxycodone HCl (Oxyir) 10 mg PO Q4H PRN PRN PRN Reason: Pain Score 4-5/10 Last Admin: 06/16/20 05:25 Dose: 10 mg Documented by: Senna/Docusate Sodium (Senokot-S, Kristina-Colace) 2 tablet PO BID PRN PRN PRN Reason: Constipation Sodium Chloride () 10 - 40 ml IV UD PRN PRN Reason: SALINE FLUSH Last Admin: 06/15/20 20:46 Dose: 10 ml Documented by: Assessment/Plan All Active Problems Steroid-induced hyperglycemia (Acute) Dehydration (Acute) Elevated lactic acid level (Acute) Cervical radicular pain (Acute) Lung abscess (Acute) Chest pain (Acute) Hyperglycemia (Acute) RECOMMENDATIONS: 1. Broaden antibiotics to Zosyn and vancomycin for the next 24 hours pending infectious work-up. 2. Obtain MRSA screen. 3. Repeat sputum culture is pending. 4. Discontinue IV morphine. P.o. oxycodone is adequate for pain control. 5. Wean supplemental oxygen to maintain saturations at or above 90%. 6. Encourage incentive spirometer use and mobilize patient as tolerated. IMPRESSIONS: 1. Necrotizing pneumonia The patient initially presented to the emergency department to obtain additional pain medications due to the presence of pleuritic type chest pain. She was previously hospitalized both here and through the [facility] for necrotizing pneumonia. The patient was placed on a one-month course of antibiotics. Her prior chest imaging completed on June 05 was personally reviewed to the imaging study obtained yesterday. There is actually some interval improvement with less internal cavitation and smaller appearance of the underlying consolidation. Therefore, I see no indication to proceed with bronchoscopy or any form of CT-guided intervention at this time. Given that she did report having had a positive MRSA screen through the CT, will obtain a repeat MRSA screen today. The patient will be continued on broad antimicrobials for now. A repeat sputum culture has been sent. If her infectious work-up does not reveal anything different from her previous work-up completed recently, I would recommend that she be discharged tomorrow to complete her one-month course of antibiotics, with plans to have follow-up chest imaging upon completion of her antibiotic treatment course. This note was generated with [employer] retargeting dictation software. It may contain incorrect words, spelling, and punctuation that were not noted in checking the note before signing. Inpatient E&M: 02194 Init Hosp L3
[2020-06-16] MEDS: levETIRAcetam 750 MG Tablet PO ×2 (08:33→21:10)
--- NOTE | 2020-06-16 09:33 | CASEMGMT ---
RN CM NOTE: Demographic sheet, H/P, clinicals, progress note, and Pulm Consult note all faxed to [facility] at this time. Call placed to [place] transfer center at this time and spoke w/Mariela. She was made aware of pt's admission and that clinical info has been faxed. Contact number given to her for this RN CM. She states someone will review clinicals and call this RN CM back. Netta OCHOA RN CM
--- NOTE | 2020-06-16 09:40 | PHA.PHARE_ITS ---
<Cale Angeles - Last Filed: 06/16/20 09:40> Consult Pharmacy has been consulted to manage selected antiobiotic: Vancomycin Type of Consult: New start Suspected Infection: Pneumonia Labs: Sodium 139 mmol/L (136-145) 06/16/20 06:18 Potassium 3.5 mmol/L (3.5-5.1) 06/16/20 06:18 Chloride 105 mmol/L (98-107) 06/16/20 06:18 Carbon Dioxide 29.0 mmol/L (21.0-32.0) 06/16/20 06:18 Anion Gap 5 (5-15) 06/16/20 06:18 BUN 6 mg/dL (7-18) L 06/16/20 06:18 Creatinine 0.58 mg/dL (0.55-1.02) 06/16/20 06:18 Est GFR (MDRD) Af Amer 143 mL/min (>60) 06/16/20 06:18 Est GFR (MDRD) Non-Af 118 mL/min (>60) 06/16/20 06:18 BUN/Creatinine Ratio 10.4 RATIO (10-20) 06/16/20 06:18 Glucose 220 mg/dL (74-106) H 06/16/20 06:18 Weight used for dosin lb 13.711 oz Estimated Creatinine Clearance: >100ML/MIN Goal Trough: 15-20 mcg/mL Pharmacy Plan for Drug Dosing: Give initial loading dose of 2000mg IV x1, then continue with 1000mg IV q8h, per [facility] dosing protocol. Will order a trough to be drawn before the 4th dose. Pharmacy Service will continue to monitor and adjust dosing as required. Follow-Up Labs: Trough Vancomycin Labs to be done on [date and time ordered]: 06/17/20 09:30 <Mykel Dukes - Last Filed: 06/16/20 11:00> Consult Labs: Sodium 139 mmol/L (136-145) 06/16/20 06:18 Potassium 3.5 mmol/L (3.5-5.1) 06/16/20 06:18 Chloride 105 mmol/L (98-107) 06/16/20 06:18 Carbon Dioxide 29.0 mmol/L (21.0-32.0) 06/16/20 06:18 Anion Gap 5 (5-15) 06/16/20 06:18 BUN 6 mg/dL (7-18) L 06/16/20 06:18 Creatinine 0.58 mg/dL (0.55-1.02) 06/16/20 06:18 Est GFR (MDRD) Af Amer 143 mL/min (>60) 06/16/20 06:18 Est GFR (MDRD) Non-Af 118 mL/min (>60) 06/16/20 06:18 BUN/Creatinine Ratio 10.4 RATIO (10-20) 06/16/20 06:18 Glucose 220 mg/dL (74-106) H 06/16/20 06:18 Pharmacy Plan for Drug Dosing: Pharmacy Service will continue to monitor and adjust dosing as required.
[2020-06-16 10:47] LABS: M R Staph aureus DNA By PCR Negative (Negative); Probe Check PASS; Specimen Processing Control PASS
[2020-06-16 12:40] LABS: Bedside Glucose 274 mg/dL (70-110)
--- NOTE | 2020-06-16 13:04 | PCM.PROGNOTE ---
<Thais Isbell - Last Filed: 06/16/20 13:23> Patient Problems: Active and Suspected Problems Lung abscess (Acute) Chest pain (Acute) Hyperglycemia (Acute) Subjective: Patient seen and examined. Denies worsening shortness of breath. Denies fever, chills. Intermittent productive cough. Patient ambulating in room, no acute distress. - Physical Exam Vitals/I&O's: Vital Signs Temp Pulse Resp BP Pulse Ox 98.0 F 89 18 124/75 H 96 06/16/20 07:39 06/16/20 07:39 06/16/20 07:39 06/16/20 07:39 06/16/20 07:39 Oxygen Delivery Method Room Air Weight: 198 lb 13.711 oz Body Mass Index (BMI) 31.1 Finger Stick Blood Glucose 90 Intake and Output for Last 24 Hours 06/14/20 06/15/20 06/16/20 23:59 23:59 23:59 Intake Total 1155 / 1635 1230 / 1230 Balance 1155 / 1635 1230 / 1230 General: Alert, Oriented x3, Cooperative HEENT: Atraumatic, PERRLA, EOMI, Normocephalic Neck: Supple, No JVD, Negative Carotid Bruits Lungs: Diminished, - - Mild fine4 crackles left base Cardiovascular: Regular rate, No murmurs Abdomen: Bowel Sounds Present, Soft, Non Tender, Non-Distended Extremities: No clubbing, No cyanosis, No edema, Capillary Refill Less than 3 Seconds Skin: No rashes, No breakdown Musculoskeletal: No Tenderness to Palpation of Joints or Extremities Neurological: Cranial nerves II-XII grossly intact, Neuro grossly intact Psych/Mental Status: Normal Affect, Appropriate Laboratory Results 06/15/20 17:50: WBC 8.0, RBC 4.01 L, Hgb 11.0 L, Hct 34.4 L, MCV 85.8, MCH 27.4, MCHC 32.0, RDW Std Deviation 43.8, RDW Coeff of Tere 14.2, Plt Count 233, MPV 9.4, Immature Gran % (Auto) 0.400, Neut % (Auto) 54.6, Lymph % (Auto) 35.6, [place] % (Auto) 6.8, Eos % (Auto) 2.2, Baso % (Auto) 0.4, Absolute Neuts (auto) 4.4, Absolute Lymphs (auto) 2.86, Nucleated RBC % 0 06/15/20 17:50: Sodium 138, Potassium 3.7, Chloride 104, Carbon Dioxide 29.0, Anion Gap 5, BUN 6 L, Creatinine 0.66, Estim Creat Clear Calc 100.27, Est GFR (MDRD) Af Amer 123, Est GFR (MDRD) Non-Af 101, BUN/Creatinine Ratio 9.1 L, Glucose 280 H, Calcium 8.6, Troponin I < 0.015 06/15/20 21:49: POC Glucose 135 H 06/16/20 06:18: WBC 8.8, RBC 3.75 L, Hgb 10.1 L, Hct 32.5 L, MCV 86.7, MCH 26.9 L, MCHC 31.1 L, RDW Std Deviation 45.3 H, RDW Coeff of Tere 14.3, Plt Count 220, MPV 9.0, Immature Gran % (Auto) 0.600, Neut % (Auto) 55.8, Lymph % (Auto) 31.4, [place] % (Auto) 9.5, Eos % (Auto) 2.2, Baso % (Auto) 0.5, Absolute Neuts (auto) 4.9, Absolute Lymphs (auto) 2.77, Nucleated RBC % 0 06/16/20 06:18: Sodium 139, Potassium 3.5, Chloride 105, Carbon Dioxide 29.0, Anion Gap 5, BUN 6 L, Creatinine 0.58, Estim Creat Clear Calc 114.10, Est GFR (MDRD) Af Amer 143, Est GFR (MDRD) Non-Af 118, BUN/Creatinine Ratio 10.4, Glucose 220 H, Calcium 8.4 L 06/16/20 06:19: POC Glucose 205 H 06/16/20 08:30: MRSA (PCR) Negative 06/16/20 12:31: POC Glucose 274 H Current Medications Acetaminophen (Tylenol) 650 mg PO Q6H PRN PRN PRN Reason: Pain Score 1-10/Temp > 100.7 F Last Admin: 06/16/20 05:25 Dose: 650 mg Documented by: Dextrose (D50w Syringe) 0 gm IV X1 PRN; Protocol PRN Reason: Hypoglycemia Glucagon () 1 mg IM .X1 PRN PRN Reason: Hypoglycemia Sodium Chloride () 1,000 mls @ 75 mls/hr IV .[id number] [facility] Stop: 06/16/20 22:36 Last Infusion: 06/15/20 20:50 Dose: 0 mls/hr Documented by: Vancomycin IV Pharmacy to Dose (1 ea/ Sodium Chloride) 500 mls @ 250 mls/hr IV X1 PRN; Protocol PRN Reason: Rx to Dose Piperacillin Sod/Tazobactam (Sod 3.375 gm/ Sodium Chloride) 50 mls @ 12.5 mls/hr IV Q8 [facility] Vancomycin HCl (Vancomycin) 1,000 mg in 200 mls @ 200 mls/hr IV Q8H [facility] Insulin Glargine (Lantus (Bkc)) 50 units SC QHS [facility] Last Admin: 06/15/20 21:50 Dose: 50 u Documented by: Insulin Human Lispro (Humalog Kwikpen (Bk)) 0 unit SC ACHS [facility]; Protocol Last Admin: 06/16/20 12:32 Dose: 6 units Documented by: Levetiracetam (Keppra Tablet) 750 mg PO BID [facility] Last Admin: 06/16/20 08:33 Dose: 750 mg Documented by: Levothyroxine Sodium (Synthroid) 200 mcg PO DAILY@0600 [facility] Last Admin: 06/16/20 05:25 Dose: 200 mcg Documented by: Ondansetron HCl (Zofran) 4 mg IV Q8H PRN PRN PRN Reason: NAUSEA/VOMITING Oxycodone HCl (Oxyir) 10 mg PO Q4H PRN PRN PRN Reason: Pain Score 4-5/10 Last Admin: 06/16/20 09:20 Dose: 10 mg Documented by: Senna/Docusate Sodium (Senokot-S, Kristina-Colace) 2 tablet PO BID PRN PRN PRN Reason: Constipation Sodium Chloride () 10 - 40 ml IV UD PRN PRN Reason: SALINE FLUSH Last Admin: 06/15/20 20:46 Dose: 10 ml Documented by: Medical Necessity - Tobacco Use Smoking Status: Current every day smoker Tobacco Use: Cigarettes Assessment/Plan All Active Problems Steroid-induced hyperglycemia (Acute) Dehydration (Acute) Elevated lactic acid level (Acute) Cervical radicular pain (Acute) Lung abscess (Acute) Chest pain (Acute) Hyperglycemia (Acute) 1. Necrotizing pneumonia-recent transfer to [place] for further evaluation and treatment. Patient's main complaint is pain with inspiration. Pulmonary medicine following. On IV vancomycin and IV Zosyn with plans to transition to continued Augmentin regimen tomorrow for extended course. Oxygen stable on room air. Repeat sputum culture pending. Ambulatory pulse ox prior to discharge. 2. Type 2 diabetes qfsnedmy-Akhw-Pvkmg with sliding scale insulin. Continue home insulin regimen. 3. Seizure disorder-continue Keppra regimen. 4. Hypothyroidism-continue Synthroid regimen. DVT prophylaxis-Lovenox subcu This patient was seen by SANDEE Gracia under the supervision of Dr. Dukes. <Mykel Dukes - Last Filed: 06/16/20 14:04> Subjective: Patient was last admitted in June 07, 2020 and was transferred to [place] [facility] for further treatment of necrotic pneumonia possible lung abscess. At that time she was treated with IV Zosyn and vancomycin and transition to the Zosyn plus Zyvox. At that time CT chest shows rounded lesions in the left lung base continued areas of cavitation suggestive of necrotic pneumonia, possible evolving lung abscess. Patient came to ER with worsening of shortness of breath and chest pain, cough mainly nonproductive with no fever or chills. T-max last 99.9 Fahrenheit with no hypotension. Physical exam General: Alert, Oriented x3, Cooperative with mild obesity HEENT: Atraumatic, PERRLA, EOMI, Normocephalic Oral: No Gingival or Mucosal Lesions/ Ulcerations Neck: Supple, No JVD, Negative Carotid Bruits Lungs: Air entry diminished in left posterior lateral base. No crepitation/rhonchi Cardiovascular: Regular rate, Regular Rhythm, Normal S1, Normal S2, No murmurs Abdomen: Bowel Sounds Present, Soft, Non Tender, Non-Distended : No renal angle tenderness. No suprapubic tenderness. Extremities: No edema, Capillary Refill Less than 3 Seconds Skin: No rashes, No breakdown Musculoskeletal: No Tenderness to Palpation of Joints or Extremities Neurological: Cranial nerves II-XII grossly intact, Deep Tendon Reflexes 2+/4 and Symmetrical, Neuro grossly intact Psych/Mental Status: Normal Affect, Appropriate - Physical Exam Vitals/I&O's: Vital Signs Temp Pulse Resp BP Pulse Ox 97.8 F 86 18 109/76 95 06/16/20 13:32 06/16/20 13:32 06/16/20 13:32 06/16/20 13:32 06/16/20 13:32 Oxygen Delivery Method Room Air Weight: 198 lb 13.711 oz Body Mass Index (BMI) 31.1 Finger Stick Blood Glucose 90 Intake and Output for Last 24 Hours 06/14/20 06/15/20 06/16/20 23:59 23:59 23:59 Intake Total 1155 / 1635 1230 / 1230 Balance 1155 / 1635 1230 / 1230 Laboratory Results 06/15/20 17:50: WBC 8.0, RBC 4.01 L, Hgb 11.0 L, Hct 34.4 L, MCV 85.8, MCH 27.4, MCHC 32.0, RDW Std Deviation 43.8, RDW Coeff of Tere 14.2, Plt Count 233, MPV 9.4, Immature Gran % (Auto) 0.400, Neut % (Auto) 54.6, Lymph % (Auto) 35.6, [place] % (Auto) 6.8, Eos % (Auto) 2.2, Baso % (Auto) 0.4, Absolute Neuts (auto) 4.4, Absolute Lymphs (auto) 2.86, Nucleated RBC % 0 06/15/20 17:50: Sodium 138, Potassium 3.7, Chloride 104, Carbon Dioxide 29.0, Anion Gap 5, BUN 6 L, Creatinine 0.66, Estim Creat Clear Calc 100.27, Est GFR (MDRD) Af Amer 123, Est GFR (MDRD) Non-Af 101, BUN/Creatinine Ratio 9.1 L, Glucose 280 H, Calcium 8.6, Troponin I < 0.015 06/15/20 21:49: POC Glucose 135 H 06/16/20 06:18: WBC 8.8, RBC 3.75 L, Hgb 10.1 L, Hct 32.5 L, MCV 86.7, MCH 26.9 L, MCHC 31.1 L, RDW Std Deviation 45.3 H, RDW Coeff of Tere 14.3, Plt Count 220, MPV 9.0, Immature Gran % (Auto) 0.600, Neut % (Auto) 55.8, Lymph % (Auto) 31.4, [place] % (Auto) 9.5, Eos % (Auto) 2.2, Baso % (Auto) 0.5, Absolute Neuts (auto) 4.9, Absolute Lymphs (auto) 2.77, Nucleated RBC % 0 06/16/20 06:18: Sodium 139, Potassium 3.5, Chloride 105, Carbon Dioxide 29.0, Anion Gap 5, BUN 6 L, Creatinine 0.58, Estim Creat Clear Calc 114.10, Est GFR (MDRD) Af Amer 143, Est GFR (MDRD) Non-Af 118, BUN/Creatinine Ratio 10.4, Glucose 220 H, Calcium 8.4 L 06/16/20 06:19: POC Glucose 205 H 06/16/20 08:30: MRSA (PCR) Negative 06/16/20 12:31: POC Glucose 274 H Current Medications Acetaminophen (Tylenol) 650 mg PO Q6H PRN PRN PRN Reason: Pain Score 1-10/Temp > 100.7 F Last Admin: 06/16/20 13:26 Dose: 650 mg Documented by: Dextrose (D50w Syringe) 0 gm IV X1 PRN; Protocol PRN Reason: Hypoglycemia Glucagon () 1 mg IM .X1 PRN PRN Reason: Hypoglycemia Sodium Chloride () 1,000 mls @ 75 mls/hr IV .[id number] [facility] Stop: 06/16/20 22:36 Last Admin: 06/16/20 13:35 Dose: 75 mls/hr Documented by: Vancomycin IV Pharmacy to Dose (1 ea/ Sodium Chloride) 500 mls @ 250 mls/hr IV X1 PRN; Protocol PRN Reason: Rx to Dose Piperacillin Sod/Tazobactam (Sod 3.375 gm/ Sodium Chloride) 50 mls @ 12.5 mls/hr IV Q8 [facility] Last Admin: 06/16/20 13:35 Dose: 12.5 mls/hr Documented by: Vancomycin HCl (Vancomycin) 1,000 mg in 200 mls @ 200 mls/hr IV Q8H [facility] Insulin Glargine (Lantus (Bk)) 50 units SC QHS [facility] Last Admin: 06/15/20 21:50 Dose: 50 u Documented by: Insulin Human Lispro (Humalog Kwikpen (Bk)) 0 unit SC ACHS [facility]; Protocol Last Admin: 06/16/20 12:32 Dose: 6 units Documented by: Levetiracetam (Keppra Tablet) 750 mg PO BID [facility] Last Admin: 06/16/20 08:33 Dose: 750 mg Documented by: Levothyroxine Sodium (Synthroid) 200 mcg PO DAILY@0600 [facility] Last Admin: 06/16/20 05:25 Dose: 200 mcg Documented by: Ondansetron HCl (Zofran) 4 mg IV Q8H PRN PRN PRN Reason: NAUSEA/VOMITING Oxycodone HCl (Oxyir) 10 mg PO Q4H PRN PRN PRN Reason: Pain Score 4-5/10 Last Admin: 06/16/20 13:26 Dose: 10 mg Documented by: Senna/Docusate Sodium (Senokot-S, Kristina-Colace) 2 tablet PO BID PRN PRN PRN Reason: Constipation Sodium Chloride () 10 - 40 ml IV UD PRN PRN Reason: SALINE FLUSH Last Admin: 06/15/20 20:46 Dose: 10 ml Documented by: Assessment/Plan This patient was seen in conjunction with SALES MANAGER, Thais. I have independently interviewed and examined the patient and reviewed pertinent history, examination findings, laboratory and plan of management. I have reviewed the note and agree with the documented findings with the few additional points. In brief, patient is admitted for shortness of breath along with chest pain due to left lung base soft tissue masses suggestive of left lung base necrotizing pneumonia. She was started on 1 month course of antibiotic, amoxicillin 1 g twice daily by [facility] and was discharged. She had repeat CT chest on admission on 06/15/2020 which shows interval improvement with less internal cavitation and air as compared to the previous CT chest on June 05. This was discussed with securities lending trader. She also reported positive MRSA nasal screen [place] although sputum culture on 06/06/2020 here shows MSSA. There is no indication for bronchoscopy or CT-guided lung biopsy but will need prolonged antibiotic for about 1 month course. Repeat a sputum culture and blood culture on this admission are pending. MRSA nasal screen negative. Other comorbidities include type 2 diabetes mellitus with uncontrolled hyperglycemia: Glucose in the range of 200-270. Accu-Chek recently discovered with meal sliding scale. On Lantus 15 units at night Seizure disorder and hypothyroidism: On home medication Keppra and levothyroxine. I have discussed my assessment with SALES MANAGERThais and orders have been reviewed. Total time of the visit including total time spent in counseling or coordination of care, (more than 50% of the total time, spent in obtaining medical information from nurses and other ancillary care providers), discussion with test consultant, review of labs and imagings is 30 minutes. Clinical Impression(s) from Imaging Studies Chest X-Ray 06/15/20 17:53 IMPRESSION: No change. Increased size of the focal pulmonary density of the anterior lateral left lung base. Chest CTA 06/15/20 18:42 IMPRESSION: Normal CTA chest examination, without a demonstrated pulmonary embolism or arterial dissection. Continued focal soft tissue masses in the left lung base with decrease in the amount of cavitation. Electronically Signed: Figueroa Waters MD at 19:26 EDT , Service support , Inpatient E&M: [id number] [facility] Hosp L3
[2020-06-16] MEDS: 0.9% Normal Saline 1,000 ML 75 ML IV (13:35)
--- NOTE | 2020-06-16 14:40 | CASEMGMT ---
ADI JOVEL Readmission note: Previous admission: Pt admitted 06/05/20 w/pneumonia. Presenting symptoms of CP and SOB. Pt was transferred to [facility] 06/07/20. Current admission: Re-admitted 06/15/20 w/necrotizing pneumonia. Pt states when discharged home from CT, she was sent home PO atb's for 30 days. ADI JOVEL to room to talk with pt. Pt states after she was discharged home from the [facility], [facility] which subsequently led to her not being able to get her pain medication. She states she has now been assigned to TREVOR Mary at the CT. Pt also states she used the last of her Lantus on and does not have any more. She states she re-ordered it through the CT, but the earliest she will receive it is on Thu. While ADI JOVEL in pt's room, she did lind check on [facility] and states cost of Lantus pen would be $203. Pt states she is able/agreeable to paying for this [id number]. Thais Isbell NP, made aware that pt will need new script for Lantus @ [facility] at discharge. PCP: TREVOR Mary at [facility] Insurance: [facility] benefits only Prescription Benefit: [facility] Pharmacy: [facility] for [facility] meds[facility]s Pt wishes to return home @ discharge and denies other discharge concerns or needs at this time. DC Disposition: Home Netta OCHOA RN, CM
[2020-06-16 16:36] LABS: Bedside Glucose 197 mg/dL (70-110)
[2020-06-16] MEDS: Vancomycin IV 1,000 MG/200 ML BAG 200 MG IV (18:09)
[2020-06-16 21:50] LABS: Bedside Glucose 239 mg/dL (70-110)
[2020-06-17] MEDS: oxyCODONE 5 MG Tablet 10 MG PO ×3 (01:22→09:36)
[2020-06-17] MEDS: Vancomycin IV 1,000 MG/200 ML BAG 200 MG IV (01:24)
[2020-06-17 02:49] VITALS: BP 134/79; PULSE 73; RESP 16; TEMP 36.7; O2SAT 98
[2020-06-17 04:43] VITALS: PULSE 82
[2020-06-17] MEDS: Levothyroxine 100 MCG Tablet 200 MCG PO (05:40)
[2020-06-17] MEDS: Acetaminophen 325 MG Tablet 650 MG PO (05:43)
[2020-06-17] MEDS: Insulin Lispro 100 UNIT/ML INSULN.PEN SC (06:35)
--- NOTE | 2020-06-17 07:01 | PN_ITS ---
Patient Problems: Active and Suspected Problems Lung abscess (Acute) Chest pain (Acute) Hyperglycemia (Acute) Subjective: The patient was seen and examined at the bedside this morning. Events from the last 24 hours have been reviewed. The patient is currently afebrile, hemodynamically stable and maintaining appropriate oxygen saturations on room air. The patient remained stable from a respiratory perspective. Repeat MRSA screen yesterday was negative. Pain is currently controlled. Objective: The patient's most recent lab work, culture data and imaging studies have all been personally reviewed. Sputum and blood cultures are pending. - Physical Exam Vitals/I&O's: Vital Signs Temp Pulse Resp BP Pulse Ox 98.0 F 82 16 134/79 H 98 06/17/20 02:49 06/17/20 04:43 06/17/20 02:49 06/17/20 02:49 06/17/20 02:49 Oxygen Delivery Method Room Air Weight: 198 lb 13.711 oz Body Mass Index (BMI) 31.1 Finger Stick Blood Glucose 90 Intake and Output for Last 24 Hours 06/15/20 06/16/20 06/17/20 23:59 23:59 23:59 Intake Total 1155 / 1635 3710 / 4110 1900.00 / 1900.00 Balance 1155 / 1635 3710 / 4110 1900.00 / 1900.00 General: Alert, Cooperative, No apparent distress HEENT: Atraumatic, Normocephalic Oral: Moist Mucosa, No Gingival or Mucosal Lesions/ Ulcerations Neck: Supple, No Nodes, Trachea Midline Lungs: Diminished Cardiovascular: Regular rate, Regular Rhythm Abdomen: Bowel Sounds Present, Soft, Non Tender Extremities: No clubbing, No cyanosis, No edema Skin: No breakdown Musculoskeletal: No Tenderness to Palpation of Joints or Extremities, No Muscle Wasting Lymphatic: No Cervical, Supraclavicular, or Inguinal Adenopathy Neurological: Cranial nerves II-XII grossly intact, Neuro grossly intact Psych/Mental Status: Normal Affect, Appropriate Labs (Last 48 Hours) 06/15/20 06/15/20 06/15/20 17:50 17:50 21:49 WBC 8.0 RBC 4.01 L Hgb 11.0 L Hct 34.4 L MCV 85.8 MCH 27.4 MCHC 32.0 RDW Std Deviation 43.8 RDW Coeff of Tere 14.2 Plt Count 233 MPV 9.4 Immature Gran % (Auto) 0.400 Neut % (Auto) 54.6 Lymph % (Auto) 35.6 [place] % (Auto) 6.8 Eos % (Auto) 2.2 Baso % (Auto) 0.4 Absolute Neuts (auto) 4.4 Absolute Lymphs (auto) 2.86 Nucleated RBC % 0 Sodium 138 Potassium 3.7 Chloride 104 Carbon Dioxide 29.0 Anion Gap 5 BUN 6 L Creatinine 0.66 Estim Creat Clear Calc 100.27 Est GFR (MDRD) Af Amer 123 Est GFR (MDRD) Non-Af 101 BUN/Creatinine Ratio 9.1 L Glucose 280 H Calcium 8.6 Troponin I < 0.015 MRSA (PCR) POC Glucose 135 H 06/16/20 06/16/20 06/16/20 06:18 06:18 06:19 WBC 8.8 RBC 3.75 L Hgb 10.1 L Hct 32.5 L MCV 86.7 MCH 26.9 L MCHC 31.1 L RDW Std Deviation 45.3 H RDW Coeff of Tere 14.3 Plt Count 220 MPV 9.0 Immature Gran % (Auto) 0.600 Neut % (Auto) 55.8 Lymph % (Auto) 31.4 [place] % (Auto) 9.5 Eos % (Auto) 2.2 Baso % (Auto) 0.5 Absolute Neuts (auto) 4.9 Absolute Lymphs (auto) 2.77 Nucleated RBC % 0 Sodium 139 Potassium 3.5 Chloride 105 Carbon Dioxide 29.0 Anion Gap 5 BUN 6 L Creatinine 0.58 Estim Creat Clear Calc 114.10 Est GFR (MDRD) Af Amer 143 Est GFR (MDRD) Non-Af 118 BUN/Creatinine Ratio 10.4 Glucose 220 H Calcium 8.4 L Troponin I MRSA (PCR) POC Glucose 205 H 06/16/20 06/16/20 06/16/20 08:30 12:31 16:24 WBC RBC Hgb Hct MCV MCH MCHC RDW Std Deviation RDW Coeff of Tere Plt Count MPV Immature Gran % (Auto) Neut % (Auto) Lymph % (Auto) [place] % (Auto) Eos % (Auto) Baso % (Auto) Absolute Neuts (auto) Absolute Lymphs (auto) Nucleated RBC % Sodium Potassium Chloride Carbon Dioxide Anion Gap BUN Creatinine Estim Creat Clear Calc Est GFR (MDRD) Af Amer Est GFR (MDRD) Non-Af BUN/Creatinine Ratio Glucose Calcium Troponin I MRSA (PCR) Negative POC Glucose 274 H 197 H 06/16/20 21:44 WBC RBC Hgb Hct MCV MCH MCHC RDW Std Deviation RDW Coeff of Tere Plt Count MPV Immature Gran % (Auto) Neut % (Auto) Lymph % (Auto) [place] % (Auto) Eos % (Auto) Baso % (Auto) Absolute Neuts (auto) Absolute Lymphs (auto) Nucleated RBC % Sodium Potassium Chloride Carbon Dioxide Anion Gap BUN Creatinine Estim Creat Clear Calc Est GFR (MDRD) Af Amer Est GFR (MDRD) Non-Af BUN/Creatinine Ratio Glucose Calcium Troponin I MRSA (PCR) POC Glucose 239 H Microbiology 06/15/20 23:10 Sputum, Expectorated/Coughed Gram Stain - Preliminary Clinical Impression(s) from Imaging Studies Chest X-Ray 06/15/20 17:53 IMPRESSION: No change. Increased size of the focal pulmonary density of the anterior lateral left lung base. Electronically Signed: Figueroa Waters MD at 18:18 EDT , Service support , Chest CTA 06/15/20 18:42 IMPRESSION: Normal CTA chest examination, without a demonstrated pulmonary embolism or arterial dissection. Continued focal soft tissue masses in the left lung base with decrease in the amount of cavitation. Electronically Signed: Figueroa Waters MD at 19:26 EDT , Service support , Current Medications Acetaminophen (Tylenol) 650 mg PO Q6H PRN PRN PRN Reason: Pain Score 1-10/Temp > 100.7 F Last Admin: 06/17/20 05:43 Dose: 650 mg Documented by: Dextrose (D50w Syringe) 0 gm IV X1 PRN; Protocol PRN Reason: Hypoglycemia Glucagon () 1 mg IM .X1 PRN PRN Reason: Hypoglycemia Vancomycin IV Pharmacy to Dose (1 ea/ Sodium Chloride) 500 mls @ 250 mls/hr IV X1 PRN; Protocol PRN Reason: Rx to Dose Piperacillin Sod/Tazobactam (Sod 3.375 gm/ Sodium Chloride) 50 mls @ 12.5 mls/hr IV Q8 [facility] Last Admin: 06/17/20 05:44 Dose: 12.5 mls/hr Documented by: Vancomycin HCl (Vancomycin) 1,000 mg in 200 mls @ 200 mls/hr IV Q8H [facility] Last Infusion: 06/17/20 02:24 Dose: Infused Documented by: Insulin Glargine (Lantus ([facility])) 50 units SC QHS [facility] Last Admin: 06/16/20 21:44 Dose: 50 u Documented by: Insulin Human Lispro (Humalog Kwikpen ([facility])) 0 unit SC ACHS [facility]; Protocol Last Admin: 06/17/20 06:35 Dose: 4 units Documented by: Levetiracetam (Keppra Tablet) 750 mg PO BID [facility] Last Admin: 06/16/20 21:10 Dose: 750 mg Documented by: Levothyroxine Sodium (Synthroid) 200 mcg PO DAILY@0600 [facility] Last Admin: 06/17/20 05:40 Dose: 200 mcg Documented by: Ondansetron HCl (Zofran) 4 mg IV Q8H PRN PRN PRN Reason: NAUSEA/VOMITING Oxycodone HCl (Oxyir) 10 mg PO Q4H PRN PRN PRN Reason: Pain Score 4-5/10 Last Admin: 06/17/20 05:40 Dose: 10 mg Documented by: Senna/Docusate Sodium (Senokot-S, Kristina-Colace) 2 tablet PO BID PRN PRN PRN Reason: Constipation Sodium Chloride () 10 - 40 ml IV UD PRN PRN Reason: SALINE FLUSH Last Admin: 06/15/20 20:46 Dose: 10 ml Documented by: Medical Necessity - Tobacco Use Smoking Status: Current every day smoker Tobacco Use: Cigarettes Assessment/Plan All Active Problems Steroid-induced hyperglycemia (Acute) Dehydration (Acute) Elevated lactic acid level (Acute) Cervical radicular pain (Acute) Lung abscess (Acute) Chest pain (Acute) Hyperglycemia (Acute) RECOMMENDATIONS: 1. Okay to de-escalate antibiotics back to p.o. regimen previously prescribed, including amoxicillin twice daily. 2. The patient should complete her antibiotic treatment course, after which time, I would recommend repeat chest imaging be completed. 3. Outpatient follow-up with a pulmonary provider through the [facility] system is strongly recommended. 4. Encourage incentive spirometer use and mobilize patient as tolerated. 5. The patient is medically stable for discharge home from my perspective. IMPRESSIONS: 1. Necrotizing pneumonia The patient initially presented to the emergency department to obtain additional pain medications due to the presence of pleuritic type chest pain. She was previously hospitalized both here and through the [facility] system for necrotizing pneumonia. The patient was placed on a one-month course of antibiotics. Her prior chest imaging completed on June 05 was personally reviewed to the imaging study obtained at the time of her admission. There is actually some interval improvement with less internal cavitation and smaller appearance of the underlying consolidation. Therefore, I see no indication to proceed with bronchoscopy or any form of CT-guided intervention at this time. MRSA screen was negative. Repeat infectious work-up has been unrevealing. From my perspective, the patient can be transitioned back to her p.o. antibiotic treatment course, with plans to complete a one-month treatment. I would recommend that repeat chest imaging be obtained upon completion of her antibiotic treatment course. The patient should ideally be established with a pulmonary provider for follow-up through the [facility] system. This note was generated with [employer] dictation software. It may contain incorrect words, spelling, and punctuation that were not noted in checking the note before signing. Inpatient E&M: 93382 Subs Hosp L2
--- NOTE | 2020-06-17 07:39 | DCINST_ITS ---
- Discharge Diagnoses Current Active Problems: Current Active and Chronic Problems Lung abscess (Acute) Chest pain (Acute) Hyperglycemia (Acute) You will use the following diet at home:: Calorie/Carbohydrate Controlled (specify 1200, 1400, etc) - carb controlled Your food should be the consistency of: Regular Discharge Activity: May Not Drive - for 1 week or under, May not drive while taking narcotic pain medications. Call your doctor if you observe: Fever of 101 or Higher, Coldness, Increased Pain, Numbness or Tingling, Change in Color, Inability to urinate, Inability to have a bowel movement, Shortness of breath, Dizziness, Fainting spells, Swelling in the ankles, Chest pain, Prolonged hiccoughing, Increased palpitations (irregular heartbeat), Calf discomfort, Uncontrolled pain Allergies/Adverse Reactions: Allergies NSAIDS (Non-Steroidal Anti-Inflamma Allergy (Verified 06/12/20 00:46) Swelling ketorolac [From Toradol] Adverse Reaction (Verified 06/12/20 00:46) headache tramadol Adverse Reaction (Verified 06/12/20 00:46) headache Medications to take at Discharge Levothyroxine Sodium [Unithroid] 200 mcg PO DAILY 05/10/20 Senna/Docusate Sodium [Senokot-S] 2 tab PO BID PRN PRN #20 tab 06/01/20 Acetaminophen [Tylenol Tablet] 650 mg PO Q6H PRN PRN tab 06/07/20 Insulin Lispro [Humalog KwikPen] See Protocol SUBCUT ACHS insuln.pen 06/07/20 Insulin Lispro [Humalog KwikPen] See Protocol SUBCUT ACHS 06/15/20 Levetiracetam [Keppra] 750 mg PO BID 06/15/20 Oxycodone [Oxyir] 1 - 2 tab PO Q6H PRN PRN 06/15/20 Amoxicillin/Potassium Clav [Amox-Clav 500-125 mg Tablet] 1,000 mg PO BID #0 06/17/20 Insulin Glargine [Lantus SoloStar Pen] 60 units SUBCUT QHS #0 06/17/20 Primary Care Physician: [facility] [Primary Care Provider] - Please follow up with your Primary Care Physician in: in 2 weeks Test Results: Test results from this visit will be discussed in further detail at your follow- up appointment, if applicable. Please Follow Up With: Geremias Samuels, DO When: after [address] Chest with IV contrast for nectrozing pne mariya
[2020-06-17] MEDS: levETIRAcetam 750 MG Tablet PO (08:20)
[2020-06-17 08:29] VITALS: BP 111/70; PULSE 91; RESP 16; TEMP 36.8; O2SAT 98
--- NOTE | 2020-06-17 09:40 | DS.PCM_ITS ---
<Thais Isbell - Last Filed: 06/17/20 09:58> Discharge Date and Diagnosis Date of Admission: 06/15/20 Date of Discharge: 06/17/20 - Primary Discharge Diagnosis Acute Problems: Active Problems 1. Necrotizing pneumonia 2. Type 2 diabetes mellitus 3. Seizure disorder 4. Hypothyroidism - Secondary Discharge Diagnosis Chronic Problems: Chronic Problems History of type 1 diabetes mellitus (Chronic) Hypothyroidism (Chronic) Diabetes (Chronic) Hospital Course and Treatment Imaging Results: Diagnostic Data Chest X-Ray 06/15/20 17:53 IMPRESSION: No change. Increased size of the focal pulmonary density of the anterior lateral left lung base. Electronically Signed: Figueroa Waters MD at 18:18 EDT , Service support , Chest CTA 06/15/20 18:42 IMPRESSION: Normal CTA chest examination, without a demonstrated pulmonary embolism or arterial dissection. Continued focal soft tissue masses in the left lung base with decrease in the amount of cavitation. Electronically Signed: Figueroa Waters MD at 19:26 EDT , Service support , Dr. Samuels- Pulmonary Medicine Operations: None Procedures: None Summary of Care Provided: The patient is a 49 year old F admitted 06/15/2020 due to shortness of breath. 1. Necrotizing pneumonia-recent transfer to [place] for further evaluation and treatment. Patient's main complaint is pain with inspiration. Pulmonary medicine following. On IV vancomycin and IV Zosyn during admission. Continue home Augmentin regimen at discharge. Oxygen stable on room air. Repeat sputum culture pending. Ambulatory pulse ox prior to discharge. 2. Type 2 diabetes oxboktti-Wgxs-Awwnx with sliding scale insulin. Continue home insulin regimen. 3. Seizure disorder-continue Keppra regimen. 4. Hypothyroidism-continue Synthroid regimen. General: Alert, Oriented x3, Cooperative HEENT: Atraumatic, PERRLA, EOMI, Normocephalic Neck: Supple, No JVD, Negative Carotid Bruits Lungs: Diminished, - - Mild fine4 crackles left base Cardiovascular: Regular rate, No murmurs Abdomen: Bowel Sounds Present, Soft, Non Tender, Non-Distended Extremities: No clubbing, No cyanosis, No edema, Capillary Refill Less than 3 Seconds Skin: No rashes, No breakdown Musculoskeletal: No Tenderness to Palpation of Joints or Extremities Neurological: Cranial nerves II-XII grossly intact, Neuro grossly intact Psych/Mental Status: Normal Affect, Appropriate Patient seen and examined prior to discharge. Physical assessment as noted above. Patient is stable for discharge with follow up recommendations as noted above. This patient was seen by SANDEE Gracia under the supervision of Dr. Dukes. - Physical Exam Vitals/I&O's: Vital Signs Temp Pulse Resp BP Pulse Ox 98.3 F 91 16 111/70 98 06/17/20 08:29 06/17/20 08:29 06/17/20 08:29 06/17/20 08:29 06/17/20 08:29 Oxygen Delivery Method Room Air Weight: 198 lb 13.711 oz Body Mass Index (BMI) 31.1 Finger Stick Blood Glucose 90 Intake and Output for Last 24 Hours 06/15/20 06/16/20 06/17/20 23:59 23:59 23:59 Intake Total 1155 / 1635 3710 / 4110 1948.33 / 1948.33 Balance 1155 / 1635 3710 / 4110 1948.33 / 1948.33 Microbiology Past 72 Hours 06/15/20 23:10 Sputum, Expectorated/Coughed Gram Stain - Preliminary Laboratory Results 06/16/20 08:30: MRSA (PCR) Negative 06/16/20 12:31: POC Glucose 274 H 06/16/20 16:24: POC Glucose 197 H 06/16/20 21:44: POC Glucose 239 H Current Medications Acetaminophen (Tylenol) 650 mg PO Q6H PRN PRN PRN Reason: Pain Score 1-10/Temp > 100.7 F Last Admin: 06/17/20 05:43 Dose: 650 mg Documented by: Dextrose (D50w Syringe) 0 gm IV X1 PRN; Protocol PRN Reason: Hypoglycemia Glucagon () 1 mg IM .X1 PRN PRN Reason: Hypoglycemia Vancomycin IV Pharmacy to Dose (1 ea/ Sodium Chloride) 500 mls @ 250 mls/hr IV X1 PRN; Protocol PRN Reason: Rx to Dose Piperacillin Sod/Tazobactam (Sod 3.375 gm/ Sodium Chloride) 50 mls @ 12.5 mls/hr IV Q8 [facility] Last Infusion: 06/17/20 09:36 Dose: Infused Documented by: Vancomycin HCl (Vancomycin) 1,000 mg in 200 mls @ 200 mls/hr IV Q8H [facility] Last Infusion: 06/17/20 02:24 Dose: Infused Documented by: Insulin Glargine (Lantus ([facility])) 50 units SC QHS [facility] Last Admin: 06/16/20 21:44 Dose: 50 u Documented by: Insulin Human Lispro (Humalog Kwikpen ([facility])) 0 unit SC ACHS [facility]; Protocol Last Admin: 06/17/20 06:35 Dose: 4 units Documented by: Levetiracetam (Keppra Tablet) 750 mg PO BID [facility] Last Admin: 06/17/20 08:20 Dose: 750 mg Documented by: Levothyroxine Sodium (Synthroid) 200 mcg PO DAILY@0600 [facility] Last Admin: 06/17/20 05:40 Dose: 200 mcg Documented by: Ondansetron HCl (Zofran) 4 mg IV Q8H PRN PRN PRN Reason: NAUSEA/VOMITING Oxycodone HCl (Oxyir) 10 mg PO Q4H PRN PRN PRN Reason: Pain Score 4-5/10 Last Admin: 06/17/20 09:36 Dose: 10 mg Documented by: Senna/Docusate Sodium (Senokot-S, Kristina-Colace) 2 tablet PO BID PRN PRN PRN Reason: Constipation Sodium Chloride () 10 - 40 ml IV UD PRN PRN Reason: SALINE FLUSH Last Admin: 06/15/20 20:46 Dose: 10 ml Documented by: Discharge Diet: Carb Control Diet Discharge Activity: May Not Drive - for 1 week or under, May not drive while taking narcotic pain medications. Call your doctor if you observe: Fever of 101 or Higher, Coldness, Increased Pain, Numbness or Tingling, Change in Color, Inability to urinate, Inability to have a bowel movement, Shortness of breath, Dizziness, Fainting spells, Swelling in the ankles, Chest pain, Prolonged hiccoughing, Increased palpitations (irregular heartbeat), Calf discomfort, Uncontrolled pain Home Medications: Medications to take at Discharge Levothyroxine Sodium [Unithroid] 200 mcg PO DAILY 05/10/20 Senna/Docusate Sodium [Senokot-S] 2 tab PO BID PRN PRN #20 tab 06/01/20 Acetaminophen [Tylenol Tablet] 650 mg PO Q6H PRN PRN tab 06/07/20 Insulin Lispro [Humalog KwikPen] See Protocol SUBCUT ACHS insuln.pen 06/07/20 Insulin Lispro [Humalog KwikPen] See Protocol SUBCUT ACHS 06/15/20 Levetiracetam [Keppra] 750 mg PO BID 06/15/20 Oxycodone [Oxyir] 1 - 2 tab PO Q6H PRN PRN 06/15/20 Amoxicillin/Potassium Clav [Amox-Clav 500-125 mg Tablet] 1,000 mg PO BID #0 06/17/20 Insulin Glargine [Lantus SoloStar Pen] 60 units SUBCUT QHS #1 box 06/17/20 Following Prescrptions Were Given to Patient: Insulin Glargine [Lantus SoloStar Pen] 60 units SUBCUT QHS #1 box Transmission Status: Received by [employer] [facility] Primary Care Physician: [facility] [Primary Care Provider] - Please follow up with your Primary Care Physician in: in 2 weeks Please Follow Up With: Geremias Samuels DO When: after [address] Chest with IV contrast for nectrozing pneumoni Disposition: Home Minutes spent on discharge:: 35 Patient Condition:: Stable Medical Necessity - Tobacco Use Smoking Status: Current every day smoker Tobacco Use: Cigarettes Meaningful Use Info Meaningful Use Diagnoses (Choose all that apply): None applicable <Mykel Dukes - Last Filed: 06/17/20 10:33> Discharge Date and Diagnosis - Secondary Discharge Diagnosis Chronic Problems: Chronic Problems History of type 1 diabetes mellitus (Chronic) Hypothyroidism (Chronic) Diabetes (Chronic) Hospital Course and Treatment Summary of Care Provided: This patient was seen in conjunction with MEDICAL PLANNER, Thais. I have independently interviewed and examined the patient and reviewed pertinent history, examination findings, laboratory and plan of management. I have reviewed the note and agree with the documented findings with the few additional points. In brief, patient is admitted for shortness of breath along with chest pain due to left lung base soft tissue masses suggestive of left lung base necrotizing pneumonia. She was started on 6 weeks course of antibiotic, Augmentin 1 g twice daily by [place] [facility] and was discharged. She had repeat CT chest on admission on 06/15/2020 which shows interval improvement with less internal cavitation and air as compared to the previous CT chest on June 05. This was discussed with travel pta. She also reported positive MRSA nasal screen [place] although sputum culture on 06/06/2020 here shows MSSA. MRSA nasal screen negative. Preliminary sputum culture growing rare gram-positive cocci and rare yeastlike organism. There is no indication for bronchoscopy or CT-guided lung biopsy but advised to finish Augmentin 1 g twice daily for 1 more month, last date 07/02/2020 and follow-up with CT chest with IV contrast in pulmonary clinic after that. Other comorbidities include type 2 diabetes mellitus with uncontrolled hyperglycemia: Glucose in the range of 200-270. Accu-Chek recently discovered with meal sliding scale. Lantus insulin increased from 15 units to 60 units at bedtime daily as patient blood sugar was elevated. Seizure disorder and hypothyroidism: On home medication Keppra and levothyroxine. Narc report was also reviewed and shows patient had 3 opioid prescription in May 2020. She already has a mail order of oxycodone from the hospital. She requested for extra oxycodone which was declined. Discharge medication reconciliation done. Discharge follow-up instructions completed. Discharge process discussed with the patient and all questions were answered to patient's satisfaction. Total time spent, exact 35 minutes on discharge meds reconciliation, examination, coordination of care with nurses and ancillary staff, review of imaging and blood test and discussion with the patient on follow-up instructions I have discussed my assessment with MEDICAL PLANNERThais and orders have been reviewed. Total time of the visit including total time spent in counseling or coordination of care, (more than 50% of the total time, spent in obtaining medical information from nurses and other ancillary care providers), discussion with securities consultant, review of labs and imagings is 30 minutes. [] Objective: Seen and examined. No fever or chills since admission. Hemodynamically, blood pressure and heart rate are controlled. Physical exam General: Alert, Oriented x3, Cooperative with mild obesity HEENT: Atraumatic, PERRLA, EOMI, Normocephalic Oral: No Gingival or Mucosal Lesions/ Ulcerations Neck: Supple, No JVD, Negative Carotid Bruits Lungs: Air entry diminished in left posterior lateral base. No crepitation/rhonchi Cardiovascular: Regular rate, Regular Rhythm, Normal S1, Normal S2, No murmurs Abdomen: Bowel Sounds Present, Soft, Non Tender, Non-Distended : No renal angle tenderness. No suprapubic tenderness. Extremities: No edema, Capillary Refill Less than 3 Seconds Skin: No rashes, No breakdown Musculoskeletal: No Tenderness to Palpation of Joints or Extremities Neurological: Cranial nerves II-XII grossly intact, Deep Tendon Reflexes 2+/4 and Symmetrical, Neuro grossly intact Psych/Mental Status: Normal Affect, Appropriate - Physical Exam Vitals/I&O's: Vital Signs Temp Pulse Resp BP Pulse Ox 98.3 F 91 16 111/70 98 06/17/20 08:29 06/17/20 08:29 06/17/20 08:29 06/17/20 08:29 06/17/20 08:29 Oxygen Delivery Method Room Air Weight: 198 lb 13.711 oz Body Mass Index (BMI) 31.1 Finger Stick Blood Glucose 90 Intake and Output for Last 24 Hours 06/15/20 06/16/20 06/17/20 23:59 23:59 23:59 Intake Total 1155 / 1635 3710 / 4110 1948.33 / 1948.33 Balance 1155 / 1635 3710 / 4110 1948.33 / 1948.33 Microbiology Past 72 Hours 06/15/20 23:10 Sputum, Expectorated/Coughed Gram Stain - Preliminary Laboratory Results 06/16/20 08:30: MRSA (PCR) Negative 06/16/20 12:31: POC Glucose 274 H 06/16/20 16:24: POC Glucose 197 H 06/16/20 21:44: POC Glucose 239 H Current Medications Acetaminophen (Tylenol) 650 mg PO Q6H PRN PRN PRN Reason: Pain Score 1-10/Temp > 100.7 F Last Admin: 06/17/20 05:43 Dose: 650 mg Documented by: Dextrose (D50w Syringe) 0 gm IV X1 PRN; Protocol PRN Reason: Hypoglycemia Glucagon () 1 mg IM .X1 PRN PRN Reason: Hypoglycemia Vancomycin IV Pharmacy to Dose (1 ea/ Sodium Chloride) 500 mls @ 250 mls/hr IV X1 PRN; Protocol PRN Reason: Rx to Dose Piperacillin Sod/Tazobactam (Sod 3.375 gm/ Sodium Chloride) 50 mls @ 12.5 mls/hr IV Q8 [facility] Last Infusion: 06/17/20 09:36 Dose: Infused Documented by: Vancomycin HCl (Vancomycin) 1,000 mg in 200 mls @ 200 mls/hr IV Q8H [facility] Last Infusion: 06/17/20 02:24 Dose: Infused Documented by: Insulin Glargine (Lantus ([facility])) 50 units SC QHS [facility] Last Admin: 06/16/20 21:44 Dose: 50 u Documented by: Insulin Human Lispro (Humalog Kwikpen ([facility])) 0 unit SC ACHS [facility]; Protocol Last Admin: 06/17/20 06:35 Dose: 4 units Documented by: Levetiracetam (Keppra Tablet) 750 mg PO BID [facility] Last Admin: 06/17/20 08:20 Dose: 750 mg Documented by: Levothyroxine Sodium (Synthroid) 200 mcg PO DAILY@0600 [facility] Last Admin: 06/17/20 05:40 Dose: 200 mcg Documented by: Ondansetron HCl (Zofran) 4 mg IV Q8H PRN PRN PRN Reason: NAUSEA/VOMITING Oxycodone HCl (Oxyir) 10 mg PO Q4H PRN PRN PRN Reason: Pain Score 4-5/10 Last Admin: 06/17/20 09:36 Dose: 10 mg Documented by: Senna/Docusate Sodium (Senokot-S, Kristina-Colace) 2 tablet PO BID PRN PRN PRN Reason: Constipation Sodium Chloride () 10 - 40 ml IV UD PRN PRN Reason: SALINE FLUSH Last Admin: 06/15/20 20:46 Dose: 10 ml Documented by: Inpatient E&M: [id number] Disch Hosp
[2020-06-17 17:03] LABS: Bedside Glucose 210 mg/dL (70-110)
--- NOTE | 2020-06-18 15:32 | CASEMGMT ---
ADI JOVEL DC PHONE CALL DC DATE: 06/17/2020 DC DISPOSITION: Home DC DIAGNOSIS: pneumonia LACE STRATA: 3 F/U APPTS MADE PRIOR TO DC: no. weekend dc PRESCRIPTIONS ACQUIRED BY PT: yes Intro role of CM to patient via phone. Pt states she is feeling improved, but still painful. [facility] and was given permission to f/u with Dr. Samuels in [place]. Patient was told by her PCP if she needed more pain medication she would need to go to pain management. RN encouraged her to call back to PCP and discuss acute pain needs post hospital stay. No further questions. Nas OCHOA RN AC
--- NOTE | 2020-06-19 10:58 | CASEMGMT ---
ADI JOVEL NOTE: Discharge instructions and summary faxed to [facility] at this time. Call placed to Sherrie @ [place] transfer center and msg left informing her pt has been discharged. Netta OCHOA RN CM
== END 2020-06-17 10:40 | disposition home or self-care (01) | DRG 177 ==
LOC: ED 17:32 → MS3 19:32
PROVIDERS: Internal Medicine Critical Care Medicine; Admitting Provider Student in an Organized Health Care Education/Training Program; Emergency Provider Emergency Medicine; Visit Provider Internal Medicine
DX: J15.211 Pneumonia due to Methicillin susceptible Staphylococcus aureus (principal); J85.1 Abscess of lung with pneumonia; J85.0 Gangrene and necrosis of lung; B95.61 Methicillin susceptible Staphylococcus aureus infection as the cause of diseases classified elsewhere; E03.9 Hypothyroidism, unspecified; G40.909 Epilepsy, unspecified, not intractable, without status epilepticus; F17.210 Nicotine dependence, cigarettes, uncomplicated; E11.65 Type 2 diabetes mellitus with hyperglycemia
CPT/HCPCS: 36415; 71046; 71275; 80048; 82962; 84484; 85025; 87040; 87070; 87205; 87641; 93005; 99284; 99406; J7030; J7040; Q9967; A4216

== ENCOUNTER 2020-06-19 14:51 | Inpatient (IN) | payer OTHER, SELFPAY ==
[2020-06-15 20:13] VITALS: BMI 31.1
[2020-06-19] VITALS (12 sets, daily range): BP systolic 109–136; BP diastolic 68–86; PULSE 87–129; RESP 11–20; TEMP 36.2–36.8; O2SAT 95–100; BMI 30.4; BMI 30.7; BMI 31.4
--- NOTE | 2020-06-19 15:12 | EKG12_ITS ---
Test Reason : GEN ILLNESS Blood Pressure : / mmHG Vent. Rate : 115 BPM Atrial Rate : 115 BPM P-R Int : 140 ms QRS Dur : 080 ms QT Int : 316 ms P-R-T Axes : 035 029 038 degrees QTc Int : 437 ms Sinus tachycardia Otherwise normal ECG Confirmed by TIKA FISHER ([id number]), proposal editor KEHINDE MONTOYA ([id number]) on 06/21/2020 2:46:41 PM Referred By: ALVINA Confirmed By:TIKA FISHER
--- NOTE | 2020-06-19 15:12 | RAD_ITS ---
STUDY: X-RAY CHEST REASON FOR EXAM: Female, 49 years old. Left rib pain, patient thinks reaction to amoxicillin. TECHNIQUE: PA and lateral views of the chest. COMPARISON: June 15, 2020 chest x-ray and CTA of the chest. FINDINGS: 1. The patient has CT demonstrated abnormal rounded masses attached to the pleural surface and lateral aspect of the left lower lobe as seen on the current chest x-ray is a rounded opacity. 2. No demonstrated new opacities in either lung. 3. Normal heart size. 4. Stable osseous structures. No visualized acute fracture or destructive process on the current study. Cervical spine hardware is stable. RAD/Chest PA and Lateral IMPRESSION: Findings unchanged from [address] exams dated June 05, 2020 and June 15, 2020. 1. Abnormal rounded mass is again seen in the left lower lobe with attachment to the pleura. Atypical cavitary pneumonia can present in this manner but of most concern is a malignant mass. 2. Has the patient been evaluated by the pulmonary or chest surgery service? Electronically Signed: Ryan Nelson MD at 16:32 EDT , Service support ,
[2020-06-19] MEDS: Ondansetron 4 MG/2 ML Vial IV (15:36)
[2020-06-19] MEDS: Morphine 4 MG/ML Syringe IV ×3 (15:37→22:49)
[2020-06-19 15:50] LABS: Absolute Lymphocyte Count 2.96 X10^3/uL (0.83-4.51); Absolute Neutrophil Count 6.6 X10^3/uL (2.0-7.7); Basophil# 0.05 X10^3/uL; Basophil% 0.5 % (0-1); Eosinophil# 0.13 X10^3/uL; Eosinophils% 1.2 % (0-5); Hematocrit 35.3 % (37-47); Hemoglobin 11.3 g/dL (12.0-15.0); Lymphocyte # 2.96 X10^3/ul (4.0); Mean Corpuscular Hgb 26.7 pg (27.0-32.0); Mean Corpuscular Volume 83.3 fL (81-99); Mean Platelet Vol. 9.4 fl (6.2-12.0); Monocyte# 0.73 X10^3/uL; Monocyte% 6.9 % (0-10); NRBC Flagged by Analyzer 0 % (0-5); Neutrophil # 6.63 X10^3/uL (2.7-7.7); Neutrophil % 62.8 % (47-70); Platelet Count 247 K/mm3 (150-450); RBC Distribution Width CV 13.7 % (11.6-14.6); RBC Distribution Width SD 41.5 fl (35.1-43.9); Red Blood Count 4.24 M/mm3 (4.2-5.4); White Blood Count 10.6 K/mm3 (4.4-11.0)
[2020-06-19 16:10] LABS: Anion Gap 6 (5-15); BUN 8 mg/dL (7-18); BUN/Creat Ratio 9.4 RATIO (10-20); Calcium,Total 9.2 mg/dL (8.5-10.1); Chloride 98 mmol/L (98-107); Creatinine, Serum 0.85 mg/dL (0.55-1.02); EST Glomerular Filtration Rate 75 mL/min (>60); Est Glom Filt Rate - Afr Amer 91 mL/min (>60); Estimated Creatinine Clearance 77.86 ml/min; Glucose 360 mg/dL (74-106); Potassium 3.9 mmol/L (3.5-5.1); Sodium Level 135 mmol/L (136-145)
[2020-06-19 16:14] LABS: BNP,B-Type NATRIURETIC PEPTIDE 8.9 pg/mL (0-100); Lactic Acid 4.7 mmol/L (0.4-1.9)
[2020-06-19] MEDS: 0.9% Normal Saline 1,000 ML 999 ML IV ×3 (17:27→19:20)
--- NOTE | 2020-06-19 17:30 | ED.VISSUMM ---
- ER Visit Summary Date of Service: 06/19/20 Chief Complaint: Cough History of Present Illness: The patient is a 49 F who goes to the [facility]. She reports that she has a cough that began June 03. She was hospitalized and was found to have necrotizing pneumonia on June 05. On June 07 she was transferred to [facility] with the thought that bronchoscopy and biopsy could be performed. That was not performed and she was discharged on Augmentin. Patient was admitted here June 15 to June 17 and is on amoxicillin 1000 mg twice daily and is supposed to take this for a month. She reports that she is actually getting worse rather than better. Patient ports that she had a fever to 100 degrees. She had chills and cold sweats. She reports that she has chest pain on the left that is sharp and increased with breathing in. It is 10 out of 10 at worst 9-10 currently. She has mild shortness of breath at rest and severe with movement or laying flat. She reports that her cough is productive yellow sputum without blood. She complains of generalized weakness. Physical Examination: Vitals: Stable. Afebrile. General: Well-nourished and well-developed. Head: Normocephalic atraumatic. Neck: Supple, no lymphadenopathy. No JVD. Nontender. Cardiovascular: Regular rate and rhythm. No murmurs. Respiratory: No respiratory distress. Clear to auscultation bilaterally. Abdominal: Soft, nontender, nondistended, normal bowel sounds. No guarding, rebound, or peritoneal signs. Back: Nontender. Extremities: Nontender, no edema. Skin: Normal color, no rash. Neurologic: Alert and oriented ?3. Cranial nerves II through XII are intact. Normal strength and sensation. Psych: Normal affect. Test Results: EKG is sinus tach [address] changes. Initial lactic acid is 4.7. Repeat lactic acid after a 30 cc/kg bolus of normal saline is 2.8. CBC shows an H&H 11.3 and 35.3. Chem-7 shows a sodium 135 and glucose 360. BNP is 8.9. Troponin is negative. Clinical Impression(s) from Imaging Studies Chest X-Ray 06/19/20 15:12 IMPRESSION: Findings unchanged from [address] exams dated June 05, 2020 and June 15, 2020. 1. Abnormal rounded mass is again seen in the left lower lobe with attachment to the pleura. Atypical cavitary pneumonia can present in this manner but of most concern is a malignant mass. 2. Has the patient been evaluated by the pulmonary or chest surgery service? Electronically Signed: Ryan Nelson MD at 16:32 EDT , Service support , Emergency Department Course and Treatment: Patient was given morphine and Zofran IV. She was initially given Zosyn IV and after discussion with Dr. Hernandez was given Levaquin IV rather than vancomycin because a prior sputum culture showed MSSA. Patient does not appear horribly ill. The thought was with a lactic acid of 4.7 if this responded after 30 cc/kg bolus of normal saline she could go home. Repeat lactic acid is 2.8. Treatment Plan: Patient was discussed with Dr. Galvin. She will be admitted to the hospital for further evaluation treatment. Disposition: Admitted in improved condition. Impression: 1. Cavitary pneumonia. 2. Septic shock. 3. Critical care time 30 minutes. This note was generated with [employer] dictation software. It may contain incorrect words, spelling, and punctuation that were not noted in review of the chart prior to signing ED Disposition - Plan for ED Patient: [facility] [[facility] Provider[facility] -
[2020-06-19] MEDS: oxyCODONE 5 MG Tablet 10 MG PO (18:43)
[2020-06-19 19:38] LABS: Reflex Lactate? Y
[2020-06-19 20:17] LABS: Lactic Acid 2.8 mmol/L (0.4-1.9)
[2020-06-19] MEDS: levoFLOXacin IV 750 MG/150 ML BAG 100 MG IV (20:52)
--- NOTE | 2020-06-19 21:38 | ED.RN ---
called report to DEWATERER OPERATORADI Alegria. awaiting hospitalist to see pt in ED prior to admission.
[2020-06-19 23:32] LABS: Reflex Lactate? Y
[2020-06-20] VITALS (16 sets, daily range): BP systolic 114–167; BP diastolic 66–98; PULSE 91–117; RESP 12–23; TEMP 36.4–37.2; O2SAT 94–98
[2020-06-20 00:22] LABS: Lactic Acid 2.4 mmol/L (0.4-1.9)
--- NOTE | 2020-06-20 00:31 | PCM.HP.STD ---
Problem List (1) Septic shock Status: Inactive (2) History of type 1 diabetes mellitus Status: Chronic (3) Hypothyroidism Status: Chronic Qualifiers: Hypothyroidism type: unspecified Qualified Code(s): E03.9 - Hypothyroidism, unspecified (4) Diabetes Status: Chronic Qualifiers: Diabetes mellitus type: type 2 Diabetes mellitus complication status: with other specified complication (5) Elevated lactic acid level Status: Acute (6) Lung abscess Status: Acute Qualifiers: Pulmonary abscess pneumonia presence: with pneumonia Laterality: left Lung location: lower lobe of lung Qualified Code(s): J85.1 - Abscess of lung with pneumonia (7) Hyperglycemia Status: Acute History of Present Illness Date of Admission: 06/19/20 Chief Complaint: SOB Patient was seen on 06/19/2020 at 2200 The patient is a 49 year old F with a significant history of epilepsy; Leida thyroiditis; and lung abscess diabetes mellitus who presented to emergency department with a two-week history of worsening shortness of breath. Also patient reports uncontrolled pain and in her left rib. At the emergency department her initial lactic acid was 4.7. The plan was that if the lactic acid resolved with 30 MS per kilogram normal saline the patient could be discharged home. However upon receiving 30 MS per kilogram normal saline her lactic acid trended to 2.8. Patient was admitted at a hospital on 06/15/2020 and discharged on 06/17/2020 for necrotizing pneumonia and was transferred to the [place]. Past Medical History Past Medical History (Chronic Problems): Chronic Problems History of type 1 diabetes mellitus (Chronic) Hypothyroidism (Chronic) Diabetes (Chronic) Allergies NSAIDS (Non-Steroidal Anti-Inflamma Allergy (Verified 06/19/20 14:55) Swelling ketorolac [From Toradol] Adverse Reaction (Verified 06/19/20 14:55) headache tramadol Adverse Reaction (Verified 06/19/20 14:55) headache Home Medications: Ambulatory Orders Medication Instructions Recorded Levothyroxine Sodium [Unithroid] 200 mcg PO DAILY 05/10/20 Insulin Lispro [Humalog KwikPen] See Protocol SUBCUT ACHS 06/07/20 insuln.pen Levetiracetam [Keppra] 750 mg PO BID 06/15/20 Insulin Glargine [Lantus SoloStar 60 units SUBCUT QHS #1 box 06/17/20 Pen] Amoxicillin/Potassium Clav 1 tab PO BID 06/19/20 [Amox-Clav 500-125 mg Tablet] Furosemide [Lasix] 40 mg PO DAILY PRN 06/19/20 Oxycodone HCl/Acetaminophen 1 tab PO Q6H PRN PRN 06/19/20 [Endocet 5-325 Tablet] Surgical History: hysterectomy, - - Fusion and disc replacement C5-6 and C6-7 Psychiatric History: No pertinent psych hx [employer]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 Denies: Weight Change HEENT: Denies: Head Aches, Sinus Congestion, Sinus Drainage Cardiovascular: Denies: Chest Pain, Palpitations Respiratory: Reports: Cough, Shortness of Breath, Sputum production Gastrointestinal: Denies: Abdominal Pain, Nausea, Vomiting Genitourinary: Denies: Dysuria Musculoskeletal: Denies: Joint Pain, Joint Tenderness Skin: Denies: Rash, Wounds Neurological: Denies: Numbness, Tingling, Focal weakness Psychiatric: Denies: Anxiety, Depression, Homicidal Ideations, Suicidal Ideations Hematologic/ Lymphatic: Denies: Easy Bruising, Easy Bleeding VTE Information - Inpt Only VTE Present on Admission: No VTE Mechan Device Prophylaxis: None VTE Pharm Prophylaxis ordered?: Yes - Physical Exam Vitals/I&O's: Vital Signs Temp Pulse Resp BP Pulse Ox 97.5 F L 91 15 114/98 H 98 06/20/20 00:00 06/20/20 00:00 06/20/20 00:00 06/20/20 00:00 06/20/20 00:00 Oxygen Delivery Method Room Air Weight: 91 kg Body Mass Index (BMI) 31.4 Finger Stick Blood Glucose 90 Intake and Output for Last 24 Hours 06/18/20 06/19/20 06/20/20 23:59 23:59 23:59 Intake Total 2249.85 / 2249.85 150 / 150 Balance 2249.85 / 2249.85 150 / 150 General: Alert, Oriented x3, Cooperative HEENT: Atraumatic, PERRLA, EOMI, Normocephalic Neck: Supple, No JVD, Negative Carotid Bruits Lungs: Clear to auscultation, Normal air movement Cardiovascular: Normal S1, Normal S2, No murmurs, Tachycardic Abdomen: Bowel Sounds Present, Soft, Non Tender Extremities: No edema, Capillary Refill Less than 3 Seconds Skin: No rashes, No breakdown Musculoskeletal: No Tenderness to Palpation of Joints or Extremities Neurological: Cranial nerves II-XII grossly intact Psych/Mental Status: Normal Affect, Appropriate Laboratory Results 06/19/20 15:26: COVID-19 (DAVON) Negative 06/19/20 15:30: WBC 10.6, RBC 4.24, Hgb 11.3 L, Hct 35.3 L, MCV 83.3, MCH 26.7 L, MCHC 32.0, RDW Std Deviation 41.5, RDW Coeff of Tere 13.7, Plt Count 247, MPV 9.4, Immature Gran % (Auto) 0.600, Neut % (Auto) 62.8, Lymph % (Auto) 28.0, [place] % (Auto) 6.9, Eos % (Auto) 1.2, Baso % (Auto) 0.5, Absolute Neuts (auto) 6.6, Absolute Lymphs (auto) 2.96, Nucleated RBC % 0 06/19/20 15:30: Sodium 135 L, Potassium 3.9, Chloride 98, Carbon Dioxide 31.0, Anion Gap 6, BUN 8, Creatinine 0.85, Estim Creat Clear Calc 77.86, Est GFR (MDRD) Af Amer 91, Est GFR (MDRD) Non-Af 75, BUN/Creatinine Ratio 9.4 L, Glucose 360 H, Calcium 9.2, Troponin I < 0.015 06/19/20 15:30: Lactic Acid 4.7 H* 06/19/20 15:30: B-Natriuretic Peptide 8.9 06/19/20 19:30: Lactic Acid 2.8 H* 06/19/20 23:45: Lactic Acid 2.4 H* Current Medications Sodium Chloride () 250 mls @ 15 mls/hr IV .[id number] PRN PRN Reason: Saline Flush Sodium Chloride () 250 mls @ 15 mls/hr IV .[id number] PRN PRN Reason: Additional IVPB Infusion Sodium Chloride () 10 - 40 ml IV UD PRN PRN Reason: SALINE FLUSH Assessment/Plan All Active Problems Elevated lactic acid level (Acute) Lung abscess (Acute) Hyperglycemia (Acute) The patient is a 49 year old F with a significant history of epilepsy;Leida thyroiditis; and lung abscess diabetes mellitus who presented to emergency department with a two-week history of worsening shortness of breath; and elevated lactic acid and with unknown cavitary lesion on the lung.. Cavitary pneumonia Patient with lactic acid of 4.7. However she does not meet sirs criteria. She has tachycardia but no other sirs criteria. She does not meet a criteria for septic shock. Received normal saline 30 mL's per kilogram bolus in the emergency department. Placed on gentle IV hydration. And lactic acid. Chest x-ray is consistent with prior CT imaging of cavitary pneumonia. Infectious disease from the [place] called her and told her that she will be started on Levaquin. Emergency department doctor discussed the case with yarn salvager Dr. Hernandez. Patient received Zosyn and Levaquin at the emergency department. Per emergent department doctor Levaquin has been recommended for inpatient. We will continue patient on Levaquin IV. Prior Sputum culture showed MSSA. Granulomatosis with polyangiitis. Per patient her test for Ai Granulomatosis came back positive. She reported that she reviewed her results online and infectious disease called her to notify her of same results. Will obtain records from [place] including results of Ai We will initiate patient on Solu-Medrol. Narcotic seeking behavior. On her previous admission at our institution narcotic seeking behavior was documented. At emergent department patient reported being allergic to tramadol and Toradol Patient clarified with a physician what pain medicine should be having when admitted. At this time we will continue patient on Percocet on HER home med list. We will not escalate narcotics. Nurse reported that patient's home medication was found hidden with patient. Epilepsy Home Keppra continued. Reportedly patient had some shakiness when admitted to ICU. Discussed with patient that we will get her EEG. Patient reported that since she already has a diagnosis of epilepsy she does not understand why EEG will be ordered. We will hold off EEG at this time. Discussed with patient that if she has any more seizure-like activity EEG will be ordered. Because of her narcotic seeking behavior recommend cautious use of Ativan. Diabetes mellitus with acute hyperglycemia On presentation her blood glucose was 360 Basal insulin continued. Accu-Chek with correction scale insulin ordered. Of note patient has tendencies of hypoglycemia (from previous admission). With patient being started on steroids she is at risk of further hypoglycemia. DVT prophylaxis Subcutaneous Lovenox. Inpatient E&M: 56214 Init Hosp L3
--- NOTE | 2020-06-20 00:32 | SEPSISNOTE ---
Sepsis Note - Physical Exam/Vitals Objective: Chest X-Ray 06/19/20 15:12 IMPRESSION: Findings unchanged from [address] exams dated June 05, 2020 and June 15, 2020. 1. Abnormal rounded mass is again seen in the left lower lobe with attachment to the pleura. Atypical cavitary pneumonia can present in this manner but of most concern is a malignant mass. 2. Has the patient been evaluated by the pulmonary or chest surgery service? Electronically Signed: Ryan Nelson MD at 16:32 EDT , Service support , Temp Pulse Resp BP Pulse Ox 97.5 F L 91 15 114/98 H 98 06/20/20 00:00 06/20/20 00:00 06/20/20 00:00 06/20/20 00:00 06/20/20 00:00 06/19/20 06/19/20 06/19/20 23:45 19:30 15:30 WBC RBC Hgb Hct MCV MCH MCHC RDW Std Deviation RDW Coeff of Tere Plt Count MPV Immature Gran % (Auto) Neut % (Auto) Lymph % (Auto) [place] % (Auto) Eos % (Auto) Baso % (Auto) Absolute Neuts (auto) Absolute Lymphs (auto) Nucleated RBC % Sodium Potassium Chloride Carbon Dioxide Anion Gap BUN Creatinine Estim Creat Clear Calc Est GFR (MDRD) Af Amer Est GFR (MDRD) Non-Af BUN/Creatinine Ratio Glucose Lactic Acid 2.4 H* 2.8 H* Calcium Troponin I B-Natriuretic Peptide 8.9 COVID-19 (DAVON) 06/19/20 06/19/20 06/19/20 15:30 15:30 15:30 WBC 10.6 RBC 4.24 Hgb 11.3 L Hct 35.3 L MCV 83.3 MCH 26.7 L MCHC 32.0 RDW Std Deviation 41.5 RDW Coeff of Tere 13.7 Plt Count 247 MPV 9.4 Immature Gran % (Auto) 0.600 Neut % (Auto) 62.8 Lymph % (Auto) 28.0 [place] % (Auto) 6.9 Eos % (Auto) 1.2 Baso % (Auto) 0.5 Absolute Neuts (auto) 6.6 Absolute Lymphs (auto) 2.96 Nucleated RBC % 0 Sodium 135 L Potassium 3.9 Chloride 98 Carbon Dioxide 31.0 Anion Gap 6 BUN 8 Creatinine 0.85 Estim Creat Clear Calc 77.86 Est GFR (MDRD) Af Amer 91 Est GFR (MDRD) Non-Af 75 BUN/Creatinine Ratio 9.4 L Glucose 360 H Lactic Acid 4.7 H* Calcium 9.2 Troponin I < 0.015 B-Natriuretic Peptide COVID-19 (DAVON) 06/19/20 15:26 WBC RBC Hgb Hct MCV MCH MCHC RDW Std Deviation RDW Coeff of Tere Plt Count MPV Immature Gran % (Auto) Neut % (Auto) Lymph % (Auto) [place] % (Auto) Eos % (Auto) Baso % (Auto) Absolute Neuts (auto) Absolute Lymphs (auto) Nucleated RBC % Sodium Potassium Chloride Carbon Dioxide Anion Gap BUN Creatinine Estim Creat Clear Calc Est GFR (MDRD) Af Amer Est GFR (MDRD) Non-Af BUN/Creatinine Ratio Glucose Lactic Acid Calcium Troponin I B-Natriuretic Peptide COVID-19 (DAVON) Negative
[2020-06-20] MEDS: 0.9% Normal Saline 1,000 ML 75 ML IV (01:17)
--- NOTE | 2020-06-20 01:25 | NURSING ---
pt refusing solu-medrol, pt stated the last time I was on steroids my blood sugars were in the 800-900's and have been having issues since.
[2020-06-20] MEDS: oxyCODONE 5 MG Tablet PO ×3 (01:38→15:14)
--- NOTE | 2020-06-20 01:54 | NURSING ---
Addendum entered by Sol Mae 06/20/20 04:28: pt also denied having any medications Original Note: REPRODUCTIVE ENDOCRINOLOGIST witnessed pt drinking from a bottle, but unable to see what the bottle was. This RN questioned pt about drinking something, pt stuttered and stated Uh my might have put a water bottle in my bag but it is over there in the closet. Then this RN witnessed on camera, pt fidgeting under blankets and frequently looking at the door. RN entered room, pt stated I have a confession to make, I lied. I was drinking a Pepsi and didn't want to get in trouble. Pepsi bottle given to this RN and disposed of in trash. Pt denies anything being added to Pepsi or having any other beverages, drugs or alcohol. Educated pt on diabetic diet and strongly encouraged pt to be honest and not attempt hiding anything.
[2020-06-20 03:11] LABS: Bedside Glucose 291 mg/dL (70-110)
--- NOTE | 2020-06-20 03:31 | NURSING ---
pt crying in room requesting more pain meds, stated to this RN, I am in so much pain, I need more than 5mg of oxy Educated pt that this is the same dose she takes at home, pt then stated This is the incorrect dose that I take at home, I am not happy with Dr. Serrato because he is not listening to me and won't order the meds I always receive here. I want to see him and if he doesn't want to order my pain meds, I will request to see him every hour to make his life living hell. Communicated to pt that this RN will discuss with Dr. Galvin. Educated patient on patient rights. Called Dr. Galvin and discussed situation, he stated pt is not getting anymore pain meds except for what is ordered which is what she takes at home. Unable to come see patient due to caring for critical patients.
[2020-06-20 03:51] LABS: Bedside Glucose 234 mg/dL (70-110)
[2020-06-20 04:28] LABS: Absolute Neutrophil Count 5.3 X10^3/uL (2.0-7.7); Basophil# 0.05 X10^3/uL; Basophil% 0.5 % (0-1); Eosinophil# 0.16 X10^3/uL; Eosinophils% 1.7 % (0-5); Hematocrit 31.7 % (37-47); Hemoglobin 10.1 g/dL (12.0-15.0); Lymphocyte % 34.4 % (19-41); Mean Corp Hgb Conc 31.9 g/dL (32-36); Mean Corpuscular Hgb 26.8 pg (27.0-32.0); Mean Corpuscular Volume 84.1 fL (81-99); Mean Platelet Vol. 9.4 fl (6.2-12.0); Monocyte# 0.76 X10^3/uL; Monocyte% 7.9 % (0-10); NRBC Flagged by Analyzer 0 % (0-5); Neutrophil # 5.25 X10^3/uL (2.7-7.7); Neutrophil % 54.9 % (47-70); Platelet Count 215 K/mm3 (150-450); RBC Distribution Width CV 13.7 % (11.6-14.6); Red Blood Count 3.77 M/mm3 (4.2-5.4); White Blood Count 9.6 K/mm3 (4.4-11.0)
[2020-06-20 04:36] LABS: Anion Gap 3 (5-15); BUN 7 mg/dL (7-18); Calcium,Total 7.9 mg/dL (8.5-10.1); Chloride 102 mmol/L (98-107); EST Glomerular Filtration Rate 95 mL/min (>60); Est Glom Filt Rate - Afr Amer 115 mL/min (>60); Estimated Creatinine Clearance 94.54 ml/min; Glucose 229 mg/dL (74-106); Potassium 3.7 mmol/L (3.5-5.1); Sodium Level 135 mmol/L (136-145)
--- NOTE | 2020-06-20 05:07 | NURSING ---
0355- communicated to pt Dr. Galvin's response, pt stated I will be contacting the patient advocate, I have no where else to go otherwise I would leave, I will wait until Dr. Hernandez gets here. 0415- assisted pt to bedside commode to void, pt acting suspicious, constantly moving self different ways to get to edge of bed, moved neck pillow to left side of hip. As this RN is fixing sheets pts daily pill case with home meds found hidden under green pad, questioned pt why she was hiding meds and if she took any home medications or other pills. pt stated I swear I did not take any meds I was afraid I would get in trouble for having them. Educated pt on hospital policy and locking home meds up. This RN looked through all of pt belongings and searched room, daily pill case with home meds locked in ICU4 upper med drawer. Dr. Galvin made aware. Room curtain left open and light left on in pt room, ICU camera remains on.
--- NOTE | 2020-06-20 05:24 | NURSING ---
2342- Ivelisse, RN answered pt call light and pt stated I feel like I am going to have a seizure. This RN notified, entered pt room, pt responded to name after three attempts, drowsy, shuttering to answer questions with lip twitching and right arm twitching. No incontinence. Suction set up in room, seizure pads on bed intact, Dr. Galvin made aware, will be to floor to see pt. 0500- Dr. Galvin to floor to see pt, orders received.
[2020-06-20] MEDS: Levothyroxine 100 MCG Tablet 200 MCG PO (06:53)
[2020-06-20 07:30] LABS: Bedside Glucose 268 mg/dL (70-110)
[2020-06-20] MEDS: levETIRAcetam 750 MG Tablet PO (08:46)
[2020-06-20] MEDS: Enoxaparin 40 MG/0.4 ML Syringe SC (08:46)
[2020-06-20] MEDS: Insulin Lispro 100 UNIT/ML INSULN.PEN SC ×3 (08:47→17:41)
--- NOTE | 2020-06-20 08:50 | NURSING ---
This RN was administering patient her Solu-Medrol dose after telling the patient what she was being given. After injecting solu-medrol IV, the patient became upset and informed that she was allergic to steroids. The patient was informed that it was not previously listed with her allergies and questioned what her reaction was if it was a specific steroid. She said that it was prednisolone and it caused her blood sugar to go really high. Dr Caba was informed, no new orders were given at that time, patient already on scheduled BGT checks. Allergy to prednisolone added to [employer]. Will continue to monitor.
--- NOTE | 2020-06-20 09:17 | PCM.PN.HOSP ---
Reason for Visit: septic shock Subjective: Patient mainly asking wondering about pain as she explains that her pain is left side of her chest 6 7 out of 10 she is only received 5 mg of oxycodone. Patient also had reported seizure last night. Stated that she felt that she was having takes consistent with her history of seizures does not remember much until the nurse woke her. Per nursing, patient was asking specifically for Ativan during this event. Patient states that she has a history of temporal lobe epilepsy which is followed [facility] the [facility]. Patient just feels short of breath and Lactic acid though she does not know the significance of lactic acid told by someone was outside with her home [address] and her lactic acid was elevated. Vitals/I&O's: Vital Signs Temp Pulse Resp BP Pulse Ox 36.4 C L 99 14 118/66 98 06/20/20 00:00 06/20/20 07:00 06/20/20 07:00 06/20/20 07:00 06/20/20 07:00 Oxygen Delivery Method Room Air Weight: 91.1 kg Body Mass Index (BMI) 31.4 Finger Stick Blood Glucose 90 Intake and Output for Last 24 Hours 06/18/20 06/19/20 06/20/20 23:59 23:59 23:59 Intake Total 2249.85 / 2249.85 510 / 510 Balance 2249.85 / 2249.85 510 / 510 General: Alert, No apparent distress HEENT: Atraumatic, Normocephalic Neck: No Nodes, Thyroid Normal Size and Texture Lungs: Clear to auscultation, Normal air movement, No rhonchi, No wheeze, No rales Cardiovascular: Regular rate, Regular Rhythm, Normal S1, Normal S2, No murmurs Abdomen: Bowel Sounds Present, Soft, Non Tender, Non-Distended, No Hepato-splenomegaly Extremities: No edema, No Calf Tenderness Skin: No rashes, No breakdown Musculoskeletal: No Tenderness to Palpation of Joints or Extremities, No Muscle Wasting Psych/Mental Status: Appropriate, Flat Affect Laboratory Results 06/19/20 15:26: COVID-19 (DAVON) Negative 06/19/20 15:30: WBC 10.6, RBC 4.24, Hgb 11.3 L, Hct 35.3 L, MCV 83.3, MCH 26.7 L, MCHC 32.0, RDW Std Deviation 41.5, RDW Coeff of Tere 13.7, Plt Count 247, MPV 9.4, Immature Gran % (Auto) 0.600, Neut % (Auto) 62.8, Lymph % (Auto) 28.0, [place] % (Auto) 6.9, Eos % (Auto) 1.2, Baso % (Auto) 0.5, Absolute Neuts (auto) 6.6, Absolute Lymphs (auto) 2.96, Nucleated RBC % 0 06/19/20 15:30: Sodium 135 L, Potassium 3.9, Chloride 98, Carbon Dioxide 31.0, Anion Gap 6, BUN 8, Creatinine 0.85, Estim Creat Clear Calc 77.86, Est GFR (MDRD) Af Amer 91, Est GFR (MDRD) Non-Af 75, BUN/Creatinine Ratio 9.4 L, Glucose 360 H, Calcium 9.2, Troponin I < 0.015 06/19/20 15:30: Lactic Acid 4.7 H* 06/19/20 15:30: B-Natriuretic Peptide 8.9 06/19/20 19:30: Lactic Acid 2.8 H* 06/19/20 23:45: Lactic Acid 2.4 H* 06/20/20 01:14: POC Glucose 291 H 06/20/20 03:07: POC Glucose 234 H 06/20/20 03:55: WBC 9.6, RBC 3.77 L, Hgb 10.1 L, Hct 31.7 L, MCV 84.1, MCH 26.8 L, MCHC 31.9 L, RDW Std Deviation 42.0, RDW Coeff of Tere 13.7, Plt Count 215, MPV 9.4, Immature Gran % (Auto) 0.600, Neut % (Auto) 54.9, Lymph % (Auto) 34.4, [place] % (Auto) 7.9, Eos % (Auto) 1.7, Baso % (Auto) 0.5, Absolute Neuts (auto) 5.3, Absolute Lymphs (auto) 3.30, Nucleated RBC % 0 06/20/20 03:55: Sodium 135 L, Potassium 3.7, Chloride 102, Carbon Dioxide 30.0, Anion Gap 3 L, BUN 7, Creatinine 0.70, Estim Creat Clear Calc 94.54, Est GFR (MDRD) Af Amer 115, Est GFR (MDRD) Non-Af 95, BUN/Creatinine Ratio 10.0, Glucose 229 H, Calcium 7.9 L 06/20/20 06:49: POC Glucose 268 H Current Medications Albuterol Sulfate (Ventolin Aerosols) 2.5 mg INHALATION Q2H PRN PRN PRN Reason: SOB/Wheezing Dextrose (D50w Syringe) 0 gm IV X1 PRN; Protocol PRN Reason: Hypoglycemia Enoxaparin Sodium (Lovenox) 40 mg SC DAILY ON LICENSE OF [facility] Last Admin: 06/20/20 08:46 Dose: 40 mg Documented by: Glucagon () 1 mg IM .X1 PRN PRN Reason: Hypoglycemia Sodium Chloride () 250 mls @ 15 mls/hr IV .[id number] PRN PRN Reason: Saline Flush Sodium Chloride () 250 mls @ 15 mls/hr IV .[id number] PRN PRN Reason: Additional IVPB Infusion Levofloxacin (Levaquin Iv) 750 mg in 150 mls @ 100 mls/hr IV Q24H ON LICENSE OF [facility] Sodium Chloride () 1,000 mls @ 75 mls/hr IV .[id number] ON LICENSE OF [facility] Last Admin: 06/20/20 01:17 Dose: 75 mls/hr Documented by: Insulin Glargine (Lantus (Bkc)) 60 units SC QHS ON LICENSE OF [facility] Last Admin: 06/20/20 01:24 Dose: 60 units Documented by: Insulin Human Lispro (Humalog Kwikpen (Bkc)) 0 unit SC ACHS ON LICENSE OF [facility]; Protocol Last Admin: 06/20/20 08:47 Dose: 6 u Documented by: Levetiracetam (Keppra Tablet) 750 mg PO BID ON LICENSE OF [facility] Last Admin: 06/20/20 08:46 Dose: 750 mg Documented by: Levothyroxine Sodium (Synthroid) 200 mcg PO DAILY@0600 ON LICENSE OF [facility] Last Admin: 06/20/20 06:53 Dose: 200 mcg Documented by: Melatonin (Melatonin) 3 mg PO QHS PRN PRN PRN Reason: INSOMNIA Methylprednisolone (Solu-Medrol) 40 mg IV Q12 ON LICENSE OF [facility] Last Admin: 06/20/20 08:46 Dose: 40 mg Documented by: Ondansetron HCl (Zofran) 4 mg IV Q8H PRN PRN PRN Reason: NAUSEA/VOMITING Oxycodone HCl (Oxyir) 5 mg PO Q6H PRN PRN PRN Reason: Pain Score 6-10/10 Last Admin: 06/20/20 01:38 Dose: 5 mg Documented by: Sodium Chloride () 10 - 40 ml IV UD PRN PRN Reason: SALINE FLUSH STROKE Vital Signs/Narrative: Vital Signs Pulse Resp BP Pulse Ox 06/20/20 07:00 99 14 118/66 98 06/20/20 06:58 94 06/20/20 06:00 112 H 13 130/72 H 94 Medical Necessity - Tobacco Use Smoking Status: Current some day smoker Assessment/Plan All Active Problems Elevated lactic acid level (Acute) Lung abscess (Acute) Hyperglycemia (Acute) 1. Septic shock: Present on arrival. Suspect related with patient's underlying necrotizing pneumonia. Clinically stable at this time and lactic acids have been trending down. Will transfer out of the ICU. Of note, patient has had elevated lactic acid earlier this month when she was admitted with hyperglycemia. Patient was never hypotensive Transfer to general medical floor COVID-19 negative 2. Necrotizing pneumonia: Is now the patient's third admission here for the same diagnosis within the past month. Patient did have a visit earlier in the month due to hyperglycemia at that time. Culture had grown out methicillin sensitive staph aureus back on the . Per Dr. Samuels's note from , is recommended patient complete her 1 month of antibiotics. There was not any indication to do a bronchoscopy or CT-guided biopsy at that time.. Was appearing that it was improving Patient currently on levofloxacin. Consult infectious disease 3. Chest pain Patient having chest pain on her left lateral chest which would be adjacent to this necrotizing mass. Patient has very quick to ask about what can be done about her pain medication once I walked in the door. Please the patient that we will utilize narcotics but would not be our primary nor first agent to help control her pain. Will utilize other agents to help maintain pain control. I am concerned, however, that there may be some embellishment of her symptoms as clinically she is not in any obvious distress. 4. Diabetes mellitus type 2 Continue with glargine and sliding scale insulin. Will discontinue the methylprednisolone obtaining clear indication to continue that at this time. 5. Seizure disorder Patient stated that she is having seizures because she felt tics. Per nursing, patient was able to ask specifically to receive Ativan. Patient states that her levetiracetam has been recently increased from 500 to 850 mg twice daily. Patient reports a history of temporal lobe epilepsy and [facility] neurolog[facility] is [facility] Will request records and verify the patient's [facility] Patient states that she was very stressed as to why she had a seizure because she was stressed because the metal treater was not adequately treating her pain. I am concerned also that there may be some embellishment as to whether or not this was an actual seizure given the fact that she was awake during this. Dexilant patient does have another event she would need to have an EEG to evaluate if this having actual seizure activity or not. 6. VTE prophylaxis with enoxaparin. Greater than 35 minutes which greater than 3% of time was counseling the patient about septic shock, pneumonia, chest pain and seizures. Inpatient E&M: 40042 [facility] Hosp L3
[2020-06-20] MEDS: Acetaminophen 500 MG Tablet 1000 MG PO (10:40)
[2020-06-20 11:03] LABS: Bedside Glucose 288 mg/dL (70-110)
[2020-06-20] MEDS: Lidocaine 5% Patch 1 PATCH TOPICAL (11:53)
--- NOTE | 2020-06-20 11:59 | CASEMGMT ---
ADI JOVEL NOTE: H/P and clinical info has been faxed to [facility] [place]. Call placed to [facility] [place] at this time and spoke w/Heather. She states Sherrie (Ext: [phone]), [place] transfer center nurse, has been assigned to pt. She transferred this RN CM to Sherrie's line. No answer. VM message left for Sherrie to inform her of pt's admission and that clinicals have been faxed. This RN CM's contact info provided on VM as well. Netta OCHOA RN CM
[2020-06-20 16:30] LABS: Bedside Glucose 407 mg/dL (70-110)
--- NOTE | 2020-06-20 17:05 | CON.PCM_ITS ---
Problem List (1) Lung abscess Status: Acute Qualifiers: Pulmonary abscess pneumonia presence: with pneumonia Laterality: left Lung location: lower lobe of lung Qualified Code(s): J85.1 - Abscess of lung with pneumonia Reason for Consult: lung abscess Consulted by: Dr. 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 Sputum cx with mssa earlier this month. Admitted here again 06/15-, transferred to [place]. TB ruled out, discharged from there on augmentin. C/o diarrhea with augmentin, had worsening dyspnea and pleuritic chest pain, came to ED. On levaquin here, feeling better, no further diarrhea, no fever. Full ROS performed and neg except as noted above. - Medical History Past Medical History (Chronic Problems): Chronic Problems History of type 1 diabetes mellitus (Chronic) Hypothyroidism (Chronic) Diabetes (Chronic) Allergies/Adverse Reactions: Allergies NSAIDS (Non-Steroidal Anti-Inflamma Allergy (Verified 06/19/20 14:55) Swelling ketorolac [From Toradol] Adverse Reaction (Verified 06/19/20 14:55) headache prednisone Adverse Reaction (Verified 06/20/20 09:44) PT UNSURE OF REACTION Severely elevated blood sugars (this was not a reaction option to choose) tramadol Adverse Reaction (Verified 06/19/20 14:55) headache Home Medications: Ambulatory Orders Medication Instructions Recorded Levothyroxine Sodium [Unithroid] 200 mcg PO DAILY 05/10/20 Insulin Lispro [Humalog KwikPen] See Protocol SUBCUT ACHS 06/07/20 insuln.pen Levetiracetam [Keppra] 750 mg PO BID 06/15/20 Insulin Glargine [Lantus SoloStar 60 units SUBCUT QHS #1 box 06/17/20 Pen] Amoxicillin/Potassium Clav 1 tab PO BID 06/19/20 [Amox-Clav 500-125 mg Tablet] Furosemide [Lasix] 40 mg PO DAILY PRN 06/19/20 Oxycodone HCl/Acetaminophen 1 tab PO Q6H PRN PRN 06/19/20 [Endocet 5-325 Tablet] - Social History Tobacco Use: cigarettes Vital Signs Temp Pulse Resp BP Pulse Ox 98.4 F 96 23 H 122/67 H 98 06/20/20 11:00 06/20/20 11:00 06/20/20 11:00 06/20/20 11:00 06/20/20 11:00 Oxygen Delivery Method Room Air Weight: 91.1 kg Body Mass Index (BMI) 31.4 Finger Stick Blood Glucose 90 Laboratory Tests Past 24 Hrs 06/19/20 06/19/20 06/19/20 15:26 19:30 23:45 WBC RBC Hgb Hct MCV MCH MCHC RDW Std Deviation RDW Coeff of Tere Plt Count MPV Immature Gran % (Auto) Neut % (Auto) Lymph % (Auto) [place] % (Auto) Eos % (Auto) Baso % (Auto) Absolute Neuts (auto) Absolute Lymphs (auto) Nucleated RBC % Sodium Potassium Chloride Carbon Dioxide Anion Gap BUN Creatinine Estim Creat Clear Calc Est GFR (MDRD) Af Amer Est GFR (MDRD) Non-Af BUN/Creatinine Ratio Glucose Lactic Acid 2.8 H* 2.4 H* Calcium COVID-19 (DAVON) Negative 06/20/20 06/20/20 03:55 03:55 WBC 9.6 RBC 3.77 L Hgb 10.1 L Hct 31.7 L MCV 84.1 MCH 26.8 L MCHC 31.9 L RDW Std Deviation 42.0 RDW Coeff of Tere 13.7 Plt Count 215 MPV 9.4 Immature Gran % (Auto) 0.600 Neut % (Auto) 54.9 Lymph % (Auto) 34.4 [place] % (Auto) 7.9 Eos % (Auto) 1.7 Baso % (Auto) 0.5 Absolute Neuts (auto) 5.3 Absolute Lymphs (auto) 3.30 Nucleated RBC % 0 Sodium 135 L Potassium 3.7 Chloride 102 Carbon Dioxide 30.0 Anion Gap 3 L BUN 7 Creatinine 0.70 Estim Creat Clear Calc 94.54 Est GFR (MDRD) Af Amer 115 Est GFR (MDRD) Non-Af 95 BUN/Creatinine Ratio 10.0 Glucose 229 H Lactic Acid Calcium 7.9 L COVID-19 (DAVON) - Other Studies Radiology: [] reviewed Other Studies: [] Route of nutrition/ use of supplements: [] Nutritional Intake: [] IV Site: [] Irvin Catheter: [] - Physical Exam General: Alert, Oriented x3, Cooperative, No apparent distress HEENT: Atraumatic, PERRLA, EOMI Neck: Supple, No Nodes Lungs: Clear to auscultation, Diminished Cardiovascular: Regular rate, Regular Rhythm, No murmurs Abdomen: Soft, Non Tender, Non-Distended Extremities: No edema Skin: No rashes IV Site: Peripheral, without redness Musculoskeletal: No Tenderness to Palpation of Joints or Extremities Neurological: Cranial nerves II-XII grossly intact - Assessment/Plan Antibiotics: [] Assessment/Plan: [] MSSA pneumonia/lung abscess - diarrhea with augmentin. Concern risks of side effects with long courses of quinolones, so will change levaquin to cefazolin/flagyl, plan on d/c home on long course po keflex and flagyl. Ok to d/c covid precautions. Will follow, thank you, d/w nursing.
[2020-06-20 17:40] LABS: Bedside Glucose 324 mg/dL (70-110)
--- NOTE | 2020-06-20 17:41 | CASEMGMT ---
RN CM Readmission note: Previous admission: Pt admitted 06/15 w/necrotizing pneumonia/lung abscess. Discharged home on 06/17 w/continuation of PO atb's. Current admission: Re-admitted 06/20/20 w/cavitary pneumonia/lung abscess. Pt reported feeling like she was not improving and feeling like she was getting worse, with fever, chills, CP, SOB, and cough w/yellow sputum. Chart review completed: PCP: TREVOR Mary at [facility] [place] Pharm[place]: [facility] for [place] meds. [place] Disposition: Home ID following. Plan is d/c home on long course PO Keflex and Flagyl. Netta OCHOA RN CM
--- NOTE | 2020-06-20 20:06 | PCM.DC.SUM ---
Discharge Date and Diagnosis Date of Admission: 06/19/20 Date of Discharge: 06/20/20 - Primary Discharge Diagnosis Acute Problems: Necrotizing Pneumonia - Secondary Discharge Diagnosis Chronic Problems: Chronic Problems History of type 1 diabetes mellitus (Chronic) Hypothyroidism (Chronic) Diabetes (Chronic) Hospital Course and Treatment Operations: None Summary of Care Provided: The patient is a 49 year old F [] - Physical Exam Vitals/I&O's: Vital Signs Temp Pulse Resp BP Pulse Ox 97.6 F L 92 18 147/80 H 97 06/20/20 19:46 06/20/20 19:46 06/20/20 19:46 06/20/20 19:46 06/20/20 19:46 Oxygen Delivery Method Room Air Weight: 91.1 kg Body Mass Index (BMI) 31.4 Finger Stick Blood Glucose 90 Intake and Output for Last 24 Hours 06/18/20 06/19/20 06/20/20 23:59 23:59 23:59 Intake Total 2249.85 / 2249.85 2029 / 2030 Output Total 345 / 345 Balance 2249.85 / 2249.85 1685 / 1685 Laboratory Results 06/19/20 19:30: Lactic Acid 2.8 H* 06/19/20 23:45: Lactic Acid 2.4 H* 06/20/20 01:14: POC Glucose 291 H 06/20/20 03:07: POC Glucose 234 H 06/20/20 03:55: WBC 9.6, RBC 3.77 L, Hgb 10.1 L, Hct 31.7 L, MCV 84.1, MCH 26.8 L, MCHC 31.9 L, RDW Std Deviation 42.0, RDW Coeff of Tere 13.7, Plt Count 215, MPV 9.4, Immature Gran % (Auto) 0.600, Neut % (Auto) 54.9, Lymph % (Auto) 34.4, [place] % (Auto) 7.9, Eos % (Auto) 1.7, Baso % (Auto) 0.5, Absolute Neuts (auto) 5.3, Absolute Lymphs (auto) 3.30, Nucleated RBC % 0 06/20/20 03:55: Sodium 135 L, Potassium 3.7, Chloride 102, Carbon Dioxide 30.0, Anion Gap 3 L, BUN 7, Creatinine 0.70, Estim Creat Clear Calc 94.54, Est GFR (MDRD) Af Amer 115, Est GFR (MDRD) Non-Af 95, BUN/Creatinine Ratio 10.0, Glucose 229 H, Calcium 7.9 L 06/20/20 06:49: POC Glucose 268 H 06/20/20 10:39: POC Glucose 288 H 06/20/20 16:26: POC Glucose 407 H 06/20/20 17:38: POC Glucose 324 H Current Medications Acetaminophen (Tylenol) 1,000 mg PO Q8 [facility] Last Admin: 06/20/20 13:41 Dose: Not Given Documented by: Albuterol Sulfate (Ventolin Aerosols) 2.5 mg INHALATION Q2H PRN PRN PRN Reason: SOB/Wheezing Dextrose (D50w Syringe) 0 gm IV X1 PRN; Protocol PRN Reason: Hypoglycemia Enoxaparin Sodium (Lovenox) 40 mg SC DAILY [facility] Last Admin: 06/20/20 08:46 Dose: 40 mg Documented by: Glucagon () 1 mg IM .X1 PRN PRN Reason: Hypoglycemia Sodium Chloride () 250 mls @ 15 mls/hr IV .[id number] PRN PRN Reason: Saline Flush Sodium Chloride () 250 mls @ 15 mls/hr IV .[id number] PRN PRN Reason: Additional IVPB Infusion Cefazolin Sodium 2 gm/ Sodium (Chloride) 110 mls @ 150 mls/hr IV Q8 [facility] Insulin Glargine (Lantus (Bkc)) 60 units SC QHS [facility] Last Admin: 06/20/20 01:24 Dose: 60 units Documented by: Insulin Human Lispro (Humalog Kwikpen (Bk)) 0 unit SC ACHS [facility]; Protocol Last Admin: 06/20/20 17:41 Dose: 9 u Documented by: Levetiracetam (Keppra Tablet) 750 mg PO BID [facility] Last Admin: 06/20/20 08:46 Dose: 750 mg Documented by: Levothyroxine Sodium (Synthroid) 200 mcg PO DAILY@0600 [facility] Last Admin: 06/20/20 06:53 Dose: 200 mcg Documented by: Lidocaine (Lidoderm Patch) 1 patch TOPICAL DAILY [facility]; Protocol Last Admin: 06/20/20 11:53 Dose: 1 patch Documented by: Melatonin (Melatonin) 3 mg PO QHS PRN PRN PRN Reason: INSOMNIA Metronidazole (Flagyl) 500 mg PO TID [facility] Ondansetron HCl (Zofran) 4 mg IV Q8H PRN PRN PRN Reason: NAUSEA/VOMITING Oxycodone HCl (Oxyir) 5 mg PO Q6H PRN PRN PRN Reason: Pain Score 6-10/10 Last Admin: 06/20/20 15:14 Dose: 5 mg Documented by: Sodium Chloride () 10 - 40 ml IV UD PRN PRN Reason: SALINE FLUSH Discharge Diet: 1800 Calorie Control Diet Discharge Activity: Return to Normal Activity Home Medications: Medications to take at Discharge Levothyroxine Sodium [Unithroid] 200 mcg PO DAILY 05/10/20 Insulin Lispro [Humalog KwikPen] See Protocol SUBCUT ACHS insuln.pen 06/07/20 Levetiracetam [Keppra] 750 mg PO BID 06/15/20 Insulin Glargine [Lantus SoloStar Pen] 60 units SUBCUT QHS #1 box 06/17/20 Amoxicillin/Potassium Clav [Amox-Clav 500-125 mg Tablet] 1 tab PO BID 06/19/20 Furosemide [Lasix] 40 mg PO DAILY PRN 06/19/20 Oxycodone HCl/Acetaminophen [Endocet 5-325 Tablet] 1 tab PO Q6H PRN PRN 06/19/20 Primary Care Physician: [facility] [Primary Care Provider] - Please Follow Up With: Lisandro Otoole MD When: in 2 weeks Medical Necessity - Tobacco Use Smoking Status: Current some day smoker Meaningful Use Info Meaningful Use Diagnoses (Choose all that apply): None applicable
--- NOTE | 2020-06-20 20:30 | NURSING ---
this RN completed pt's assessment and vs approx 5 d/t pt c/o pain in bedside rounding. pt c/o 8/10 sharp pain to lower left chest in same manor as previous pain. educated pt regarding current pain regimen and informed pt this rn would contact the hospitalist regarding continued pain. this RN immediately spoke with MD at nurses station and was informed to continue current treatment plan. this RN returned to patients room and relayed information to patient who became very upset and requested a prescription for her antibiotic and papers to sign her self out AMA. this RN apologized to pt for her frustration and attempted to provide emotional support and education to patient. pt continues to request to leave. MD notified, and this RN and MD returned to pt's room where pt and physician talked; however, pt still requested to sign herself out. this RN removed pt's IV's, provided pt a copy of her AMA form and offered pt a wheelchair out; pt refused wheelchair.
--- NOTE | 2020-06-21 09:21 | CASEMGMT ---
ADI CM NOTE: Pt has left AMA. Discharge summary faxed to [facility] at this time. Netta OCHOA RN CM
== END 2020-06-20 20:31 | disposition left against medical advice (07) | DRG 177 ==
LOC: ED 14:58 → ICU 06-20 00:51 → MS3 06-20 17:13
PROVIDERS: Admitting Provider Hospitalist; Emergency Provider Emergency Medicine
DX: J85.1 Abscess of lung with pneumonia (principal); J15.211 Pneumonia due to Methicillin susceptible Staphylococcus aureus; M31.30 Wegener's granulomatosis without renal involvement; G40.909 Epilepsy, unspecified, not intractable, without status epilepticus; E06.3 Autoimmune thyroiditis; E10.65 Type 1 diabetes mellitus with hyperglycemia; Z76.5 Malingerer [conscious simulation]; F17.210 Nicotine dependence, cigarettes, uncomplicated
CPT/HCPCS: 71046; 80048; 82962; 83605; 83880; 84484; 85025; 87040; 87635; 93005; 97802; 99285; 99406; G2023; J7030; J7040; J7050; A4216; J2405; U0003

== ENCOUNTER 2020-06-21 22:19 | Emergency (ER) | payer OTHER, SELFPAY ==
[2020-06-19 22:59] VITALS: BMI 31.4
[2020-06-21 22:22] VITALS: BP 164/92; PULSE 128; RESP 18; TEMP 36.6; O2SAT 97; BMI 31.3
--- NOTE | 2020-06-21 23:14 | ED.VIS.GEN ---
History of Present Illness Chief Complaint: Shortness of Breath Informant: Patient Narrative: Patient was seen last night in the emergency department and admitted but signed out AMA, she was apparently upset about use of steroids, because of her diabetes she does not want it, she is found to have cavitary pneumonia and was placed on antibiotics, she will need an ID consult as well as pulmonology consult, she will need admission and she is back because she feels somewhat worse and wants to get treatment. She has no current fevers or chills. She does have a cough and she has weakness. Past Medical History - Allergies and Home Meds Allergies/Adverse Reactions: Allergies NSAIDS (Non-Steroidal Anti-Inflamma Allergy (Verified 06/21/20 22:25) Swelling ketorolac [From Toradol] Adverse Reaction (Verified 06/21/20 22:25) headache prednisone Adverse Reaction (Verified 06/21/20 22:25) PT UNSURE OF REACTION Severely elevated blood sugars (this was not a reaction option to choose) tramadol Adverse Reaction (Verified 06/21/20 22:25) headache Primary Care Physician: [place] [place] [Primary Care Provider] - Past Medical History: - - Pastora's, diabetes, hypothyroid, seizure disorder, diabetes Surgical History: hysterectomy, - - Fusion and disc replacement C5-6 and C6-7 Smoking Status: Current every day smoker - Family History Maternal Family History: Reports: - - Thyroidism Paternal Family History: Reports: Hypertension Review of Systems All systems negative except as indicated General: Reports: Malaise. Denies: Fever Eyes: Denies: Visual changes - bilaterally Cardiovascular: Reports: Chest pain, - - She has chest wall pain Respiratory: Reports: Dyspnea, Cough Gastrointestinal: Denies: Abdominal pain, Nausea Genitourinary: Denies: Dysuria Musculoskeletal: Denies: Myalgias, Arthralgias Skin: Denies: Rash Neurological: Reports: - - No focal weakness. Denies: Headache Endocrine: Denies: Polyuria Hematologic: Denies: Easy bruising Allergy: Denies: Swelling of the mouth, Swelling of the tongue Physical Exam Vital Signs/Narrative: Vital Signs Temp Pulse Resp BP Pulse Ox 06/21/20 22:22 97.9 F 128 H 18 164/92 H 97 General: - - Patient does not appear toxic, she is relatively comfortable in bed but she is complaining of pain Eyes: Perrl, EOMI ENT: - - Slightly dry membranes Neck: Supple Cardiovascular: Regular rhythm, No murmurs, Tachycardia Respiratory: No distress, - - Coarse bilateral breath sounds, no significant respiratory distress Abdomen: Soft, Nontender Back: Nontender, Normal Inspection Extremities: Nontender, No edema Skin: Normal color, No rash Neurological: Alert Diagnostic/Tx/Re-eval - Medical Decision Making I will check blood work, otherwise I will readmitted to the hospital. She is slightly tachycardic but she has been tachycardic throughout and was thought not to be septic she has a normal blood pressure. She appears relatively comfortable. She did receive IV fluids and antibiotics last night she will receive IV fluids again tonight. ED Disposition - Plan for ED Patient: Disposition: Acute Care Hospital [facility] Diagnosis: Cavitary pneumonia [facility] [Primary [facility] Provider] -
[2020-06-21 23:32] VITALS: O2SAT 98
[2020-06-21] MEDS: Morphine 4 MG/ML Syringe IV (23:38)
[2020-06-21] MEDS: Ondansetron 4 MG/2 ML Vial IV (23:38)
[2020-06-21 23:45] LABS: Absolute Lymphocyte Count 3.18 X10^3/uL (0.83-4.51); Basophil# 0.05 X10^3/uL; Basophil% 0.6 % (0-1); Eosinophil# 0.15 X10^3/uL; Eosinophils% 1.9 % (0-5); Hematocrit 34.9 % (37-47); Lymphocyte # 3.18 X10^3/ul (4.0); Lymphocyte % 40.2 % (19-41); Mean Corp Hgb Conc 31.5 g/dL (32-36); Mean Corpuscular Volume 85.7 fL (81-99); Mean Platelet Vol. 9.2 fl (6.2-12.0); Monocyte# 0.48 X10^3/uL; Monocyte% 6.1 % (0-10); NRBC Flagged by Analyzer 0 % (0-5); Neutrophil # 4.03 X10^3/uL (2.7-7.7); Neutrophil % 50.8 % (47-70); Platelet Count 234 K/mm3 (150-450); RBC Distribution Width CV 13.8 % (11.6-14.6); RBC Distribution Width SD 42.5 fl (35.1-43.9); Red Blood Count 4.07 M/mm3 (4.2-5.4); White Blood Count 7.9 K/mm3 (4.4-11.0)
[2020-06-22] MEDS: levoFLOXacin IV 500 MG/100 ML BAG 100 MG IV (00:01)
[2020-06-22 00:02] LABS: ALB/GLOB Ratio 0.7 RATIO (0.9-2.4); AST(SGOT) 59 U/L (15-37); Alanine Aminotransfer ALT/SGPT 25 U/L (13-56); Alkaline Phosphatase 142 U/L (45-117); Anion Gap 6 (5-15); BUN 9 mg/dL (7-18); BUN/Creat Ratio 11.5 RATIO (10-20); Calcium,Total 8.6 mg/dL (8.5-10.1); Chloride 105 mmol/L (98-107); Creatinine, Serum 0.78 mg/dL (0.55-1.02); EST Glomerular Filtration Rate 83 mL/min (>60); Est Glom Filt Rate - Afr Amer 101 mL/min (>60); Estimated Creatinine Clearance 84.84 ml/min; Globulin 4.4 g/dL (2.2-4.2); Glucose 348 mg/dL (74-106); Potassium 3.6 mmol/L (3.5-5.1); Protein, Total 7.4 g/dL (6.4-8.2); Sodium Level 137 mmol/L (136-145)
--- NOTE | 2020-06-22 00:45 | ED.DEP ---
ED Disposition - Plan for ED Patient: Disposition: Home or Assisted Living Diagnosis: Cavitary pneumonia Instructions: Pneumonia Referrals: Donaldo Hernandez MD [STAFF PHYSICIAN] -
[2020-06-22] MEDS: oxyCODONE 5 MG Tablet PO (01:24)
[2020-06-22 01:25] VITALS: BP 144/88; PULSE 107; RESP 18; TEMP 36.9; O2SAT 99
== END 2020-06-22 01:33 | disposition home or self-care (01) ==
PROVIDERS: Emergency Provider Emergency Medicine
DX: J18.8 Other pneumonia, unspecified organism (principal); E11.9 Type 2 diabetes mellitus without complications; E03.9 Hypothyroidism, unspecified; F17.200 Nicotine dependence, unspecified, uncomplicated; Z79.4 Long term (current) use of insulin
CPT/HCPCS: 80053; 85025; 96361; 96365; 96375; 99283; J7040; A4216; J2405

== ENCOUNTER 2020-06-22 22:55 | Emergency (ER) | payer OTHER, SELFPAY ==
[2020-06-21 22:22] VITALS: BMI 31.3
[2020-06-22 22:56] VITALS: BP 148/76; PULSE 121; RESP 18; TEMP 36.4; O2SAT 100
[2020-06-22 22:57] VITALS: BP 148/76; PULSE 125; RESP 18; TEMP 36.4; O2SAT 100; BMI 31.0
--- NOTE | 2020-06-22 23:15 | ED.DCSUM_ITS ---
History of Present Illness Chief Complaint: Numb/Ting Narrative: Patient was seen by me last night, she is doing apparently much better from the respiratory standpoint, today she had a seizure about 6 hours ago, she does not know if this was a regular seizure or not epileptiform seizure but it left her with more of her neuropathy pain which is chronic and recurrent over the past year. She has been on Lyrica and gabapentin for it, she has seen neurology for it. She has an appointment with rheumatology on July 04. She has no fever chills cough congestion she does not have any injuries from her seizure her tongue shoulders hips arms are all normal. Past Medical History - Allergies and Home Meds Allergies/Adverse Reactions: Allergies NSAIDS (Non-Steroidal Anti-Inflamma Allergy (Verified 06/21/20 22:25) Swelling ketorolac [From Toradol] Adverse Reaction (Verified 06/21/20 22:25) headache prednisone Adverse Reaction (Verified 06/21/20 22:25) PT UNSURE OF REACTION Severely elevated blood sugars (this was not a reaction option to choose) tramadol Adverse Reaction (Verified 06/21/20 22:25) headache Primary Care Physician: [facility] [Primary Care Provider] - Past Medical History: - - Reviewed from her chart, seizure disorder, chronic neuropathy, cavitary pneumonia being treated outpatient with antibiotics, chronic sinus tachycardia Surgical History: hysterectomy, - - Fusion and disc replacement C5-6 and C6-7 Smoking Status: Former smoker - Family History Maternal Family History: Reports: - - Thyroidism Paternal Family History: Reports: Hypertension Review of Systems All systems negative except as indicated General: Denies: Fever Eyes: Denies: Visual changes - bilaterally ENT: Denies: Rhinorrhea Cardiovascular: Denies: Chest pain Respiratory: Reports: - - Her cough and shortness of breath have improved Gastrointestinal: Denies: Abdominal pain, Nausea, Vomiting Musculoskeletal: Reports: Extremity Pain Skin: Denies: Rash Neurological: Reports: Parasthesia. Denies: Weakness Hematologic: Denies: Easy bruising Physical Exam Vital Signs/Narrative: Vital Signs Temp Pulse Resp BP Pulse Ox 06/22/20 22:57 97.6 F L 125 H 18 148/76 H 100 06/22/20 22:56 97.6 F L 121 H 18 148/76 H 100 General: Well nourished, Well developed Head: Normocephalic Eyes: Perrl, EOMI ENT: Moist mucous membranes Neck: Supple Cardiovascular: Regular rate, Regular rhythm Respiratory: No distress, - - I do not appreciate any wheezing rhonchi or any abnormal breath sounds she is speaking in full sentences in no respiratory distress. Abdomen: Soft, Nontender, Nondistended Back: Nontender, Normal Inspection Extremities: - - She has subjective paresthesias both hands, however full range of motion normal strength and she has sensation. She has subjective paresthesias over both feet all the left is somewhat worse than right. She has normal strength sensation normal color normal DP and PT pulses bilaterally. Neurological: Normal Strength, - - She has pain but her sensation is intact in all extremities Diagnostic/Tx/Re-eval - Medical Decision Making I am unsure about the etiology of her symptoms however this is chronic and recurrent she has tachycardia as far as her vitals but this is chronic for her, otherwise she has normal vitals she had normal blood work yesterday at home believe it is indicated to recheck them, she appears well I will treat her in e ED and I will give her a TCA for home for her neuropathy. ED Disposition - Plan for ED Patient: Disposition: Home or Assisted Living Diagnosis: Neuropathy Instructions: ED PERIPHERAL NEUROPATHY Prescriptions: Nortriptyline HCl [Pamelor] 75 mg PO BID #10 cap Transmission Status: Pending to [facility] Referrals: [facility] [Primary Care Provider] -
[2020-06-22] MEDS: oxyCODONE 5 MG Tablet 10 MG PO (23:23)
[2020-06-22] MEDS: Nortriptyline 25 MG Capsule 50 MG PO (23:24)
[2020-06-22 23:28] VITALS: BP 148/76; PULSE 125; RESP 18; TEMP 36.4; O2SAT 100
[2020-06-22 23:30] VITALS: PULSE 16
== END 2020-06-22 23:31 | disposition home or self-care (01) ==
LOC: ED 23:21
PROVIDERS: Emergency Provider Emergency Medicine
DX: G62.9 Polyneuropathy, unspecified (principal); Z87.891 Personal history of nicotine dependence
CPT/HCPCS: 99283

== ENCOUNTER 2020-06-24 19:33 | Emergency (ER) | payer OTHER, SELFPAY ==
--- NOTE | 2020-06-24 07:30 | CT_ITS ---
We are attempting to reach an attending provider to discuss findings. An addendum with communication details will be sent when the communication is complete. STUDY: CT BRAIN WITHOUT CONTRAST REASON FOR EXAM: Female, 49 years old. STROKE RADIATION DOSAGE (If Supplied By Facility): CTDIvol = ( 44.99 ) mGy, DLP = ( 897.35 ) mGycm TECHNIQUE: Transaxial CT imaging of the brain was performed without administration of intravenous contrast material. Individualized dose optimization techniques were used for this CT. COMPARISON: No relevant priors. FINDINGS: Normal soft tissue structures. Normal calvarium. Normal size ventricles and extra-axial spaces for the patient''s age. Normal white matter tracts of the cerebral hemispheres. Normal basal ganglia and thalami. Normal brainstem. Normal cerebellum. There is no intracranial hemorrhage. There are no findings of an acute ischemic infarction. Normal visualized paranasal sinuses. CT/Brain/Head without Contrast IMPRESSION: Normal unenhanced CT scan of the brain. Electronically Signed: Luis De Leon DO at 19:56 EDT Tel [phone], Service support ,
[2020-06-24 19:34] VITALS: BP 137/76; PULSE 113; RESP 21; TEMP 37; O2SAT 97; BMI 32.1
--- NOTE | 2020-06-24 19:36 | RAD_ITS ---
STUDY: X-RAY CHEST REASON FOR EXAM: Female, 49 years old. pt brought in by ems for left sided facial droop and left sided weakness. ems reports initial call was for chest pain all day. TECHNIQUE: Frontal view COMPARISON: 06-19-20 FINDINGS: The lungs are expanded. Possible cavitary masses in the left lung base. Normal size heart. Normal mediastinum and janes. Normal visualized pulmonary arteries. Normal visualized aortic arch and descending thoracic aorta. Normal visualized thoracic spine. Normal visualized ribs, clavicles, and shoulders. There is no demonstrated abnormality of the visualized soft tissue structures of the upper abdomen. RAD/Chest 1 View IMPRESSION: Persistent probable cavitary masses in the left lung base. Electronically Signed: Luis De Leon DO at 20:40 EDT Tel [phone], Service support ,
--- NOTE | 2020-06-24 19:36 | EKG12_ITS ---
Test Reason : STROKE Blood Pressure : / mmHG Vent. Rate : 111 BPM Atrial Rate : 111 BPM P-R Int : 160 ms QRS Dur : 074 ms QT Int : 322 ms P-R-T Axes : 045 032 041 degrees QTc Int : 437 ms Sinus tachycardia Otherwise normal ECG Confirmed by SAM SHEIKH, LORI ([id number]), electronic news gathering editor BENJAMIN HUNG ([id number]) on 06/25/2020 1:19:33 PM Referred By: MAGGI RIOS Confirmed By:LORI VARGAS MD
--- NOTE | 2020-06-24 19:36 | CT_ITS ---
STUDY: CTA HEAD AND NECK WITH CONTRAST REASON FOR EXAM: Female, 49 years old. STROKE RADIATION DOSAGE (If Supplied By Facility): CTDIvol = ( 19.66 ) mGy, DLP = ( 687.81 ) mGycm TECHNIQUE: CT angiography was performed with a multi-detector CT scanner. Data acquisition was obtained from the skull base through the vertex following intravenous administration of 100ML ISOVUE 370. MIP images were reconstructed from the axial data set. Post-processing of the angiographic images was performed, with multiplanar reformation and 3D reconstruction. Individualized dose optimization techniques were used for this CT. COMPARISON: No relevant priors. FINDINGS: Normal bilateral petrous carotid arteries. Normal right cavernous carotid artery with a normal supraclinoid bifurcation. Normal left cavernous carotid artery with a normal supraclinoid bifurcation. Normal right A1 segments of the anterior cerebral artery. Normal left A1 segments of the anterior cerebral artery. Normal intact anterior communicating artery (ACOM). Normal bilateral A2 segments of the anterior cerebral arteries. Normal right M1 and M2 segments of the middle cerebral arteries, with a normal M1 bifurcation. Normal left M1 and M2 segments of the middle cerebral arteries, with a normal M1 bifurcation. Normal right posterior communicating artery (PCOM). Normal left posterior communicating artery (PCOM). Normal right vertebral artery. Mild diffuse narrowing of the intracranial segment of the left vertebral artery. Normal basilar artery with a normal basilar bifurcation. The visualized bilateral superior cerebellar (SCA) arteries are normal. 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 There is no demonstrated aneurysm of the [place]. There is no demonstrated abnormality of the visualized brain. AORTIC ARCH: Normal visualized aortic arch. Normal origins of the brachiocephalic, left common carotid, and left subclavian arteries. RIGHT CAROTID ARTERIES: Normal right common carotid artery (CCA). Normal right common carotid bulb. Normal origin of the right internal carotid (ICA) artery without a hemodynamically significant stenosis. Normal visualized cervical portion of the right internal carotid artery. Normal origin of the right external carotid artery (ECA). LEFT CAROTID ARTERIES: Normal left common carotid artery (CCA). Normal left common carotid bulb. Normal origin of the left internal carotid (ICA) artery without a hemodynamically significant stenosis. Normal visualized cervical portion of the left internal carotid artery. Normal origin of the left external carotid artery (ECA). VERTEBRAL ARTERIES: Normal bilateral vertebral arteries. 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 N.B. : The above information has been verbally conveyed by Luis De Leon DO to Kelly Ramirezine on 06/24/2020 20:02:40 (ET). Electronically Signed: Luis De Leon DO at 20:12 EDT Tel [phone], Service support ,
[2020-06-24 19:55] VITALS: BP 137/76; PULSE 112; RESP 21; O2SAT 96
[2020-06-24 20:00] VITALS: BP 122/74; PULSE 112; RESP 16; O2SAT 97
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
[2020-06-24 20:16] VITALS: BMI 32.1
[2020-06-24 20:16] LABS: Absolute Lymphocyte Count 2.65 X10^3/uL (0.83-4.51); Absolute Neutrophil Count 5.7 X10^3/uL (2.0-7.7); Basophil# 0.04 X10^3/uL; Basophil% 0.4 % (0-1); Eosinophil# 0.17 X10^3/uL; Eosinophils% 1.8 % (0-5); Hematocrit 33.7 % (37-47); Hemoglobin 10.6 g/dL (12.0-15.0); Lymphocyte # 2.65 X10^3/ul (4.0); Lymphocyte % 28.3 % (19-41); Mean Corp Hgb Conc 31.5 g/dL (32-36); Mean Corpuscular Hgb 26.4 pg (27.0-32.0); Mean Corpuscular Volume 83.8 fL (81-99); Mean Platelet Vol. 9.4 fl (6.2-12.0); Monocyte# 0.72 X10^3/uL; Monocyte% 7.7 % (0-10); NRBC Flagged by Analyzer 0 % (0-5); Neutrophil # 5.73 X10^3/uL (2.7-7.7); Neutrophil % 61.4 % (47-70); Platelet Count 210 K/mm3 (150-450); RBC Distribution Width CV 13.8 % (11.6-14.6); RBC Distribution Width SD 42.3 fl (35.1-43.9); Red Blood Count 4.02 M/mm3 (4.2-5.4); White Blood Count 9.4 K/mm3 (4.4-11.0)
[2020-06-24 20:21] LABS: International Normalized Ratio 1.3; Prothrombin Time (Protime)PT. 15.4 SECONDS (11.7-14.9)
[2020-06-24 20:22] LABS: Partial Thromboplast Time 34.9 Seconds (24.1-36.2)
[2020-06-24 20:30] VITALS: BP 127/82; PULSE 116; RESP 17; O2SAT 96
[2020-06-24 20:42] LABS: Anion Gap 9 (5-15); BUN 7 mg/dL (7-18); BUN/Creat Ratio 7.4 RATIO (10-20); Calcium,Total 8.1 mg/dL (8.5-10.1); Chloride 98 mmol/L (98-107); Creatinine, Serum 0.94 mg/dL (0.55-1.02); EST Glomerular Filtration Rate 67 mL/min (>60); Est Glom Filt Rate - Afr Amer 81 mL/min (>60); Glucose 465 mg/dL (74-106); Potassium 3.8 mmol/L (3.5-5.1); Sodium Level 131 mmol/L (136-145)
[2020-06-24] MEDS: Acetaminophen 500 MG Tablet 1000 MG PO (21:11)
[2020-06-24 22:12] VITALS: BP 124/78; PULSE 112; RESP 18; O2SAT 97
== END 2020-06-24 22:14 | disposition home or self-care (01) ==
PROVIDERS: Emergency Provider Emergency Medicine
DX: R53.1 Weakness (principal); R07.89 Other chest pain; E03.9 Hypothyroidism, unspecified; E11.9 Type 2 diabetes mellitus without complications; Z79.4 Long term (current) use of insulin; Z87.891 Personal history of nicotine dependence
CPT/HCPCS: 70450; 70496; 70498; 71045; 80048; 84484; 85025; 85610; 85730; 93005; 99285; Q9967

== ENCOUNTER 2020-07-05 19:12 | Emergency (ER) | payer OTHER, SELFPAY ==
[2020-07-05 19:13] VITALS: BP 156/79; PULSE 127; RESP 18; TEMP 37.2; O2SAT 97; BMI 31.3
[2020-07-05 20:43] VITALS: O2SAT 98
--- NOTE | 2020-07-05 20:45 | RAD_ITS ---
STUDY: X-RAY CHEST REASON FOR EXAM: Female, 49 years old. COUGH WITH SOB TECHNIQUE: Frontal and lateral views of the chest. COMPARISON: 06/24/2020 x-ray, 06/15/2020 CT FINDINGS: Cervical spine fusions. Once again, a round cavitary mass is identified in the left lung base. Differential includes neoplasm and infection. It measures 57 x 42 mm and appears slightly larger than on prior chest x-ray. Azygos lobe. Progressing left pleural fluid. Normal size heart. Normal mediastinum and janes. Normal visualized pulmonary arteries. Normal visualized aortic arch and descending thoracic aorta. Normal visualized thoracic spine. Normal visualized ribs, clavicles, and shoulders. There is no demonstrated abnormality of the visualized soft tissue structures of the upper abdomen. RAD/Chest PA and Lateral IMPRESSION: Persistent round cavitary mass in the left lung base, previously described, with some interval increase in size compared to most recent chest x-ray. Progressing left pleural fluid. Electronically Signed: Eris Newell MD at 21:15 EDT Tel , Service support ,
[2020-07-05 20:46] VITALS: BP 137/100; PULSE 114; RESP 22; TEMP 36.7; O2SAT 98
--- NOTE | 2020-07-05 21:59 | ED.DCSUM_ITS ---
History of Present Illness Chief Complaint: Shortness of Breath Detail of Chief Complaint: hemoptysis Informant: Patient, Significant Other Onset: Yesterday Timing: Intermittent Quality: small amt blood / clot Narrative: Patient recently diagnosed with cavitary mass in her left lung and has been treated as necrotizing pneumonia, she [facility] [place] [facility] the past 8 days and was discharged yesterday on oral antibiotics after having received IV antibiotics for multiple days. She was tested for tuberculosis and it was negative. She had a fine-needle aspirate of the lesions, but they were not able to send her for a tissue biopsy, they did a Gram stain and it was negative. They want to do more, an open biopsy, however prior to doing that they want to treat her for 30 days with antibiotics, she just started doxycycline and Flagyl yesterday. She started having hemoptysis yesterday morning prior to discharge. It was mild. She has a history of Pastora's granulomatosis as well. She presents today because the hemoptysis was worse, she was coughing up bigger chunks. She is not doing this consistently. It is fairly rare. She was told that if her bleeding got worse she should come back to the nearest emergency department, hence her visit here. She has had dyspnea with exertion but that is stable and not necessarily worse than it has been. She has pleuritic discomfort in her right upper back when she breathes, that has been there for several days a least. It was in the left side but it switched. - Past Medical History (1) Wegeners granulomatosis Status: Chronic (2) Diabetes Status: Chronic (3) History of type 1 diabetes mellitus Status: Chronic (4) Hypothyroidism Status: Chronic (5) Seizures Status: Chronic Past Medical History - Allergies and Home Meds Allergies/Adverse Reactions: Allergies NSAIDS (Non-Steroidal Anti-Inflamma Allergy (Verified 07/05/20 19:15) Swelling ketorolac [From Toradol] Adverse Reaction (Verified 07/05/20 19:15) headache prednisone Adverse Reaction (Verified 07/05/20 19:15) PT UNSURE OF REACTION Severely elevated blood sugars (this was not a reaction option to choose) tramadol Adverse Reaction (Verified 07/05/20 19:15) headache [facility] Physician[facility] [Primary [facility]] - Surgical History: hysterectomy, - - Fusion and disc replacement C5-6 and C6-7 Lives: Spouse/ Significant Other Smoking Status: Current every day smoker - Family History Maternal Family History: Reports: - - Thyroidism Paternal Family History: Reports: Hypertension Review of Systems General: Reports: Malaise. Denies: Chills, Fever, Sweats Eyes: Denies: Visual changes - bilaterally, Diplopia ENT: Denies: Rhinorrhea, Sore throat Cardiovascular: Reports: Chest pain - With coughing, central soreness. Denies: Palpitations Respiratory: Reports: Dyspnea, Cough, Sputum, Dyspnea on exertion Gastrointestinal: Denies: Abdominal pain, Nausea, Vomiting, Diarrhea, Melena, Hematochezia Genitourinary: Denies: Dysuria, Hematuria, Frequency Musculoskeletal: Denies: Back pain, Swelling, Extremity Pain Skin: Denies: Rash, Wounds Neurological: Denies: Headache, Weakness, Numbness Physical Exam Vital Signs/Narrative: Vital Signs Temp Pulse Resp BP Pulse Ox 07/05/20 20:46 98.1 F 114 H 22 H 137/100 H 98 07/05/20 19:13 98.9 F 127 H 18 156/79 H 97 Inital Vital Signs reviewed: Yes General: Well nourished, Well developed, No Acute Distress Head: Normocephalic, Atraumatic Eyes: Perrl, EOMI ENT: Moist mucous membranes, No rhinorrhea Neck: Supple, Nontender, No lymphadenopathy, No JVD Cardiovascular: Regular rate, Regular rhythm, No murmurs, Tachycardia Respiratory: No distress, CTA bilaterally, Chest nontender Abdomen: Soft, Nontender, Nondistended, Normal bowel sounds Back: Nontender, Normal Inspection Extremities: Nontender, No edema. Negative for: Calf Tenderness Skin: Normal color, No rash, No Trauma Neurological: Alert, Oriented x3, Cranial nerves II-XII grossly intact, Normal Strength, Normal Sensation Psychological: Normal affect, Normal Mood Diagnostic/Tx/Re-eval Impressions Chest X-Ray 07/05/20 20:45 IMPRESSION: Persistent round cavitary mass in the left lung base, previously described, with some interval increase in size compared to most recent chest x-ray. Progressing left pleural fluid. Electronically Signed: Eris Newell MD at 21:15 EDT Tel , Service support , 07/05/20 20:45 Chest PA and Lateral [RAD] Stat Laboratory Results 07/05/20 07/05/20 21:59 21:59 WBC 10.4 RBC 4.38 Hgb 11.5 L Hct 36.4 L MCV 83.1 MCH 26.3 L MCHC 31.6 L RDW Std Deviation 41.6 RDW Coeff of Tere 13.9 Plt Count 267 MPV 9.8 Immature Gran % (Auto) 0.400 Neut % (Auto) 55.3 Lymph % (Auto) 33.0 [place] % (Auto) 8.4 Eos % (Auto) 2.3 Baso % (Auto) 0.6 Absolute Neuts (auto) 5.8 Absolute Lymphs (auto) 3.45 Nucleated RBC % 0 Sodium 136 Potassium 4.4 Chloride 105 Carbon Dioxide 28.0 Anion Gap 3 L BUN 10 Creatinine 0.85 Estim Creat Clear Calc 77.86 Est GFR (MDRD) Af Amer 91 Est GFR (MDRD) Non-Af 75 BUN/Creatinine Ratio 11.8 Glucose 282 H Calcium 9.3 Troponin I < 0.015 - Medical Decision Making X-ray shows mild interval increase in the size of her left lower lobe cavitary lesion. She is on IV antibiotics for a week and changed over to different oral antibiotics just yesterday, so certainly she has not failed outpatient treatment at this time. She is not here necessarily for worsening symptoms, but because she was coughing up more blood. Her blood counts are within normal limits and her blood work is fairly unremarkable as above. She was having pleuritic pains, that she has been having a whole time. She was given some analgesics for that as well as a prescription for some Percocet which she states she was taken throughout her inpatient stay and was helping, I do not think she necessarily needs to be admitted [facility]. She has been observed here for about 4 hours, and she has had no hemoptysis or significant dyspnea at rest. She is not hypoxic on room air. I offered to [facility] if she wanted to, but she declines, and I think this is fine. We discussed reasons to return. She is comfortable with that plan. ED Disposition - Plan for ED Patient: Disposition: Home or Assisted Living Diagnosis: Cavitary lesion of lung, Hemoptysis, Wegeners granulomatosis Instructions: ED Hemoptysis Prescriptions: Oxycodone HCl/Acetaminophen [Percocet 5/325] 1 tab PO Q6H PRN PRN 3 Days #12 tab PRN Reason: Pain Prescription Printed [facility] [[facility] - Keep Vic appointment
[2020-07-05 22:07] LABS: Absolute Lymphocyte Count 3.45 X10^3/uL (0.83-4.51); Absolute Neutrophil Count 5.8 X10^3/uL (2.0-7.7); Basophil# 0.06 X10^3/uL; Basophil% 0.6 % (0-1); Eosinophil# 0.24 X10^3/uL; Eosinophils% 2.3 % (0-5); Hematocrit 36.4 % (37-47); Hemoglobin 11.5 g/dL (12.0-15.0); Lymphocyte # 3.45 X10^3/ul (4.0); Mean Corp Hgb Conc 31.6 g/dL (32-36); Mean Corpuscular Hgb 26.3 pg (27.0-32.0); Mean Corpuscular Volume 83.1 fL (81-99); Mean Platelet Vol. 9.8 fl (6.2-12.0); Monocyte# 0.88 X10^3/uL; Monocyte% 8.4 % (0-10); NRBC Flagged by Analyzer 0 % (0-5); Neutrophil # 5.77 X10^3/uL (2.7-7.7); Neutrophil % 55.3 % (47-70); Platelet Count 267 K/mm3 (150-450); RBC Distribution Width CV 13.9 % (11.6-14.6); RBC Distribution Width SD 41.6 fl (35.1-43.9); Red Blood Count 4.38 M/mm3 (4.2-5.4); White Blood Count 10.4 K/mm3 (4.4-11.0)
[2020-07-05 22:31] LABS: Anion Gap 3 (5-15); BUN 10 mg/dL (7-18); BUN/Creat Ratio 11.8 RATIO (10-20); Calcium,Total 9.3 mg/dL (8.5-10.1); Chloride 105 mmol/L (98-107); Creatinine, Serum 0.85 mg/dL (0.55-1.02); EST Glomerular Filtration Rate 75 mL/min (>60); Est Glom Filt Rate - Afr Amer 91 mL/min (>60); Estimated Creatinine Clearance 77.86 ml/min; Glucose 282 mg/dL (74-106); Potassium 4.4 mmol/L (3.5-5.1); Sodium Level 136 mmol/L (136-145)
[2020-07-05] MEDS: Morphine 4 MG/ML Syringe IV (23:31)
[2020-07-05 23:33] VITALS: BP 129/59
== END 2020-07-05 23:55 | disposition home or self-care (01) ==
PROVIDERS: Emergency Provider Emergency Medicine
DX: R91.1 Solitary pulmonary nodule (principal); R04.2 Hemoptysis; M31.30 Wegener's granulomatosis without renal involvement
CPT/HCPCS: 71046; 80048; 84484; 85025; 96374; 99284; A4216

== ENCOUNTER 2020-07-08 22:53 | Emergency (ER) | payer OTHER, SELFPAY ==
[2020-07-08 22:54] VITALS: BP 128/88; PULSE 131; RESP 15; TEMP 36.2; O2SAT 98; BMI 29.7
--- NOTE | 2020-07-08 23:07 | RAD_ITS ---
STUDY: X-RAY CHEST REASON FOR EXAM: Female, 49 years old. NAUSEA, DIARRHEA, CHILLS, PT STATES ON 2 ATB FOR PNEUMONIA THINKS SHE IS HAVING A REACTION TECHNIQUE: Frontal view COMPARISON: 07/05/2020 FINDINGS: The lungs are expanded. Stable left basilar masslike opacities are noted. Normal size heart. Normal mediastinum and janes. Normal visualized pulmonary arteries. Normal visualized aortic arch and descending thoracic aorta. Degenerative changes of the thoracic spine. Normal visualized ribs, clavicles, and shoulders. There is no demonstrated abnormality of the visualized soft tissue structures of the upper abdomen. RAD/Chest 1 View (Portable) IMPRESSION: Relatively stable masslike opacities in the left lung base. Electronically Signed: Luis De Leon DO at 23:48 EDT Tel [phone], Service support ,
--- NOTE | 2020-07-08 23:09 | ED.DCSUM_ITS ---
History of Present Illness Chief Complaint: General Illness Informant: Patient Onset: Days Context: Gradual Onset Timing: Continuous Current Severity: Moderate Maximum Severity: Moderate Narrative: The patient is a 49-year-old female with medical history significant for insulin-dependent diabetes who presents to the emergency department with diarrhea and generalized malaise. The patient has been in and out of multiple hospitals over the past 2 months. She has a cavitary lung lesion and is undergoing work-up through the [facility]. She states that they did biopsy, but it was insufficient for tissue. She tested negative for tuberculosis. Despite this, she is on doxycycline and Flagyl. She states that with the antibiotics, she does get nauseated and has been having loose watery diarrhea. She denies any fevers. She denies any worsening shortness of breath. She is scheduled for outpatient lung biopsy this week. She states that she was just concerned with her diarrhea that she may be dehydrated. Prior similar symptoms: Yes Recent Illness/Hospitalization: Yes Past Medical History - Allergies and Home Meds Allergies/Adverse Reactions: Allergies NSAIDS (Non-Steroidal Anti-Inflamma Allergy (Verified 07/08/20 23:00) Swelling ketorolac [From Toradol] Adverse Reaction (Verified 07/08/20 23:00) headache prednisone Adverse Reaction (Verified 07/08/20 23:00) PT UNSURE OF REACTION Severely elevated blood sugars (this was not a reaction option to choose) tramadol Adverse Reaction (Verified 07/08/20 23:00) headache Primary Care Physician: [facility] [Primary Care Provider] - Prior records reviewed: Yes Past Medical History: - - Cavitary lung lesion, diabetes, Pastora's Surgical History: hysterectomy, - - Fusion and disc replacement C5-6 and C6-7 Smoking Status: Current every day smoker - Family History Maternal Family History: Reports: - - Thyroidism Paternal Family History: Reports: Hypertension Review of Systems General: Reports: Chills. Denies: Fever, Sweats Eyes: Denies: Visual changes - bilaterally, Diplopia ENT: Denies: Rhinorrhea, Sore throat Cardiovascular: Denies: Chest pain, Palpitations Respiratory: Reports: Cough. Denies: Dyspnea, Dyspnea on exertion Gastrointestinal: Reports: Diarrhea. Denies: Abdominal pain, Nausea, Vomiting, Melena, Hematochezia Genitourinary: Denies: Dysuria, Hematuria, Frequency Musculoskeletal: Denies: Back pain, Extremity Pain Skin: Denies: Rash, Wounds Neurological: Denies: Headache, Weakness, Numbness Physical Exam Vital Signs/Narrative: Vital Signs Temp Pulse Resp BP Pulse Ox 07/08/20 22:54 97.1 F L 131 H 15 128/88 H 98 Inital Vital Signs reviewed: Yes General: Well nourished, Well developed, No Acute Distress Head: Normocephalic, Atraumatic Eyes: Perrl, EOMI ENT: Moist mucous membranes, No rhinorrhea Neck: Supple, Nontender Cardiovascular: Regular rhythm, No murmurs, Tachycardia Respiratory: No distress, CTA bilaterally, Chest nontender Abdomen: Soft, Nontender, Nondistended, Normal bowel sounds Back: Nontender, Normal Inspection Extremities: Nontender, No edema Skin: Normal color, No rash Neurological: Alert, Oriented x3, Cranial nerves II-XII grossly intact, Normal Strength, Normal Sensation Psychological: Normal affect, Normal Mood Diagnostic/Tx/Re-eval Clinical Impression(s) from Imaging Studies Chest X-Ray 07/08/20 23:07 IMPRESSION: Relatively stable masslike opacities in the left lung base. Electronically Signed: Luis De Leon DO at 23:48 EDT Tel [phone], Service support , Abnormal Lab Results 07/08/20 07/08/20 23:30 23:30 WBC 12.7 H RBC 4.45 Hgb 11.6 L Hct 36.4 L MCV 81.8 MCH 26.1 L MCHC 31.9 L RDW Std Deviation 40.4 RDW Coeff of Tere 13.7 Plt Count 281 MPV 9.6 Immature Gran % (Auto) 0.500 Neut % (Auto) 59.3 Lymph % (Auto) 28.4 [place] % (Auto) 8.5 Eos % (Auto) 2.8 Baso % (Auto) 0.5 Absolute Neuts (auto) 7.5 Absolute Lymphs (auto) 3.59 Nucleated RBC % 0 Sodium 137 Potassium 3.8 Chloride 105 Carbon Dioxide 25.0 Anion Gap 7 BUN 7 Creatinine 0.65 Estim Creat Clear Calc 101.81 Est GFR (MDRD) Af Amer 124 Est GFR (MDRD) Non-Af 102 BUN/Creatinine Ratio 10.7 Glucose 191 H Calcium 8.9 Total Bilirubin 0.30 AST 35 ALT 16 Alkaline Phosphatase 121 H Total Protein 8.1 Albumin 3.1 L Globulin 5.0 H Albumin/Globulin Ratio 0.6 L - Medical Decision Making The patient presents with diarrhea and generalized malaise. She states she feels like she is dehydrated. Clinically, she does not appear to be dry. She does have a mild tachycardia, but in review of her multiple visits, her heart rate has always been elevated. Metabolic work-up was initiated given her history. Screening labs are unremarkable. She has a normal anion gap. She has a normal bicarb. I did not obtain a lactic acid as I did not feel this would guide care in any way. The patient was given Phenergan, fluids, and an oral [place]. She is resting comfortably without complaints. At this point, I do feel that she is safe for [facility]. I am hesitant to continue prescribing the patient narcotics for non-verifiable pain. I am also concerned that some of her symptoms are likely secondary to acute withdrawal. Some of her visits correspond to the end of her 3-day prescriptions for analgesics. The patient was hospitalized for greater than a week at the [facility] for her illness. I did tell her that it seems much more appropriate for the [facility] to be prescribing her analgesics under their guidance if they feel that this is reasonable long-term medication for her disease process. Patient was not comfortable with this plan of care. The patient was given a prescription for Phenergan after fluids and finished. She wrote on the prescription my pain is real and Dr. Serrato lies. She left without me being able to discuss this with her. Impression 1. Dehydration ED Disposition - Plan for ED Patient: Disposition: Home or Assisted Living Instructions: ED Dehydration Adult Prescriptions: proMETHazine tablet [Phenergan] 25 mg PO Q6H PRN PRN #10 tab PRN Reason: Nausea Prescription Printed [facility] [[facility]] -
[2020-07-08] MEDS: 0.9% Normal Saline 1,000 ML 1000 ML IV (23:29)
[2020-07-08] MEDS: proMETHazine 25 MG/ML Syringe 12.5 MG IV (23:29)
[2020-07-08 23:38] LABS: Absolute Lymphocyte Count 3.59 X10^3/uL (0.83-4.51); Absolute Neutrophil Count 7.5 X10^3/uL (2.0-7.7); Basophil# 0.06 X10^3/uL; Basophil% 0.5 % (0-1); Eosinophil# 0.36 X10^3/uL; Eosinophils% 2.8 % (0-5); Hematocrit 36.4 % (37-47); Hemoglobin 11.6 g/dL (12.0-15.0); Lymphocyte # 3.59 X10^3/ul (4.0); Lymphocyte % 28.4 % (19-41); Mean Corp Hgb Conc 31.9 g/dL (32-36); Mean Corpuscular Hgb 26.1 pg (27.0-32.0); Mean Corpuscular Volume 81.8 fL (81-99); Mean Platelet Vol. 9.6 fl (6.2-12.0); Monocyte# 1.07 X10^3/uL; Monocyte% 8.5 % (0-10); NRBC Flagged by Analyzer 0 % (0-5); Neutrophil # 7.51 X10^3/uL (2.7-7.7); Neutrophil % 59.3 % (47-70); Platelet Count 281 K/mm3 (150-450); RBC Distribution Width CV 13.7 % (11.6-14.6); RBC Distribution Width SD 40.4 fl (35.1-43.9); Red Blood Count 4.45 M/mm3 (4.2-5.4); White Blood Count 12.7 K/mm3 (4.4-11.0)
[2020-07-08 23:56] LABS: ALB/GLOB Ratio 0.6 RATIO (0.9-2.4); AST(SGOT) 35 U/L (15-37); Alanine Aminotransfer ALT/SGPT 16 U/L (13-56); Albumin, Serum 3.1 g/dL (3.2-5.0); Alkaline Phosphatase 121 U/L (45-117); Anion Gap 7 (5-15); BUN 7 mg/dL (7-18); BUN/Creat Ratio 10.7 RATIO (10-20); Calcium,Total 8.9 mg/dL (8.5-10.1); Chloride 105 mmol/L (98-107); Creatinine, Serum 0.65 mg/dL (0.55-1.02); EST Glomerular Filtration Rate 102 mL/min (>60); Est Glom Filt Rate - Afr Amer 124 mL/min (>60); Estimated Creatinine Clearance 101.81 ml/min; Glucose 191 mg/dL (74-106); Potassium 3.8 mmol/L (3.5-5.1); Protein, Total 8.1 g/dL (6.4-8.2); Sodium Level 137 mmol/L (136-145)
[2020-07-09] MEDS: HYDROcodone Bitartrate/Apap 5/325 Tablet PO (00:02)
[2020-07-09 01:22] VITALS: BP 138/87; PULSE 105; RESP 22; O2SAT 98
== END 2020-07-09 01:27 | disposition home or self-care (01) ==
PROVIDERS: Emergency Provider Emergency Medicine
DX: E86.0 Dehydration (principal); F17.200 Nicotine dependence, unspecified, uncomplicated; E11.9 Type 2 diabetes mellitus without complications; Z79.4 Long term (current) use of insulin
CPT/HCPCS: 71045; 80053; 85025; 96361; 96374; 99285; J7030

== ENCOUNTER 2020-07-11 20:07 | Emergency (ER) | payer OTHER, SELFPAY ==
[2020-07-11 20:08] VITALS: BP 146/73; PULSE 116; RESP 17; TEMP 36.9; O2SAT 97; BMI 30.7
[2020-07-11 20:14] VITALS: BP 146/73; PULSE 105; PULSE 112; RESP 20; RESP 96; TEMP 36.9; O2SAT 97; O2SAT 98
[2020-07-11 20:16] VITALS: O2SAT 98
--- NOTE | 2020-07-11 21:12 | EKG12_ITS ---
Test Reason : SOB Blood Pressure : / mmHG Vent. Rate : 093 BPM Atrial Rate : 093 BPM P-R Int : 150 ms QRS Dur : 080 ms QT Int : 352 ms P-R-T Axes : 049 026 048 degrees QTc Int : 437 ms Normal sinus rhythm Normal ECG Confirmed by TIKA FISHER ([id number]), web content editor KEHINDE MONTOYA ([id number]) on 07/16/2020 2:15:01 PM Referred By: GINA Confirmed By:TIKA FISHER
--- NOTE | 2020-07-11 21:35 | RAD_ITS ---
STUDY: X-RAY CHEST REASON FOR EXAM: Female, 49 years old. SOB, COUGH TECHNIQUE: AP portable COMPARISON: 07/08/2020 FINDINGS: There is a multilobulated pleural-based mass in the left lower lobe with a tiny effusion.. Normal size heart. Normal mediastinum and janes. Normal visualized pulmonary arteries. Normal visualized aortic arch and descending thoracic aorta. Normal visualized thoracic spine. Normal visualized ribs, clavicles, and shoulders. There is no demonstrated abnormality of the visualized soft tissue structures of the upper abdomen. The lesion in left lower lobe is stable since prior study. No new infiltrate is observed. The left pleural effusion has decreased in size. RAD/Chest 1 View (Portable) IMPRESSION: Persistent pleural-based left lower lobe nodular density with tiny left pleural effusion which has decreased in size since prior study.. No new lesions identified Electronically Signed: Madhu Morris MD at 21:51 EDT , Service support ,
[2020-07-11 21:39] LABS: Absolute Neutrophil Count 5.9 X10^3/uL (2.0-7.7); Basophil# 0.05 X10^3/uL; Basophil% 0.5 % (0-1); Eosinophil# 0.25 X10^3/uL; Eosinophils% 2.3 % (0-5); Hematocrit 35.4 % (37-47); Hemoglobin 11.5 g/dL (12.0-15.0); Lymphocyte % 35.3 % (19-41); Mean Corp Hgb Conc 32.5 g/dL (32-36); Mean Corpuscular Hgb 26.2 pg (27.0-32.0); Mean Corpuscular Volume 80.6 fL (81-99); Mean Platelet Vol. 9.1 fl (6.2-12.0); Monocyte# 0.94 X10^3/uL; Monocyte% 8.5 % (0-10); NRBC Flagged by Analyzer 0 % (0-5); Neutrophil # 5.88 X10^3/uL (2.7-7.7); Neutrophil % 53.1 % (47-70); Platelet Count 271 K/mm3 (150-450); RBC Distribution Width CV 13.4 % (11.6-14.6); RBC Distribution Width SD 39.3 fl (35.1-43.9); Red Blood Count 4.39 M/mm3 (4.2-5.4); White Blood Count 11.1 K/mm3 (4.4-11.0)
[2020-07-11] MEDS: Morphine 4 MG/ML Syringe IV (21:51)
[2020-07-11] MEDS: 0.9% Normal Saline 1,000 ML 999 ML IV (21:51)
--- NOTE | 2020-07-11 21:53 | ED.DCSUM_ITS ---
History of Present Illness Chief Complaint: Shortness of Breath Informant: Patient Narrative: Patient is a 49-year-old female who presents to the emergency department for left sided chest pain. She states that she coughed and she felt a pop in her lung. She feels like there is a rattle in the lower lung base now. She currently rates the pain as a 7 out of 10. Taking deep breaths and makes it feel worse. Has been seen multiple times recently for a staph lung abscess. She is currently on outpatient doxycycline. She was on Flagyl as well but she developed diarrhea with this. She states she is been having 2 episodes of diarrhea per hour. is aware of this. She states she has been having low- grade fevers and has been having chills. She occasionally gets sweats with this. She does have shortness of breath associated with this. She denies any episodes of vomiting with this. No significant abdominal pain. She denies any history of DVT/PE. 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 She has been having int ermittent cough. This has been productive of a green sputum. She is a current everyday smoker. Past Medical History - Allergies and Home Meds Allergies/Adverse Reactions: Allergies NSAIDS (Non-Steroidal Anti-Inflamma Allergy (Verified 07/11/20 20:08) Swelling ketorolac [From Toradol] Adverse Reaction (Verified 07/11/20 20:08) headache prednisone Adverse Reaction (Verified 07/11/20 20:08) PT UNSURE OF REACTION Severely elevated blood sugars (this was not a reaction option to choose) tramadol Adverse Reaction (Verified 07/11/20 20:08) headache Primary Care Physician: [place] [place] [Primary Care Provider] - 2 Days Prior records reviewed: Yes Past Medical History: - - Seizures, diabetes, Pastora's granulomatosis Surgical History: hysterectomy, - - Fusion and disc replacement C5-6 and C6-7 Smoking Status: Current every day smoker - Family History Maternal Family History: Reports: - - Thyroidism Paternal Family History: Reports: Hypertension Review of Systems All systems negative except as indicated General: Reports: Chills, Fever, Sweats Eyes: Denies: Visual changes - bilaterally, Diplopia ENT: Denies: Rhinorrhea, Sore throat Cardiovascular: Reports: Chest pain. Denies: Palpitations Respiratory: Reports: Dyspnea, Cough. Denies: Dyspnea on exertion Gastrointestinal: Reports: Diarrhea. Denies: Abdominal pain, Nausea, Vomiting, Melena, Hematochezia Genitourinary: Denies: Dysuria, Hematuria, Frequency Musculoskeletal: Denies: Back pain, Extremity Pain Skin: Denies: Rash, Wounds Neurological: Denies: Headache, Weakness, Numbness Physical Exam Vital Signs/Narrative: Vital Signs Temp Pulse Resp BP Pulse Ox 07/11/20 20:14 98.4 F 105 H 96 H 146/73 H 97 07/11/20 20:08 98.4 F 116 H 17 146/73 H 97 Inital Vital Signs reviewed: Yes General: Well nourished, Well developed, No Acute Distress Head: Normocephalic, Atraumatic Eyes: Perrl, EOMI ENT: Dry mucous membranes Neck: Supple, Nontender Cardiovascular: Regular rhythm, No murmurs, Tachycardia Respiratory: No distress, Rales - Left lower lung base, - - Patient having poor inspiratory effort. Otherwise good air movement bilaterally. Negative for: Retractions Abdomen: Soft, Nontender, Nondistended Back: Nontender Extremities: No edema. Negative for: Calf Tenderness Skin: Normal color, No rash Neurological: Alert, Oriented x3, Normal Strength, Normal Sensation Psychological: Normal affect, Normal Mood Diagnostic/Tx/Re-eval - EKG Initial EKG Interpretation: - - Rate of 93 bpm and normal sinus rhythm. Normal intervals. Normal axis. No ST elevations or depressions appreciated. No T wave abnormalities. - Medical Decision Making Patient presents emerged part for left-sided chest pain and shortness of breath after a cough. She feels like there is a rattle in her chest now. She is mildly tachycardic upon arrival. She states she is been having a lot of diarrhea after being on the antibiotics. Will start IV fluids obtain chest x- ray and basic lab work. Chest x-ray showed decreasing size of the abscess. Very small pleural effusion present. Otherwise no pneumothorax. This does not sound like a PE as it oc curred after coughing. She has not been hypoxic at all. She is mildly tachycardic but relates this to her diarrhea. She did respond well to IV fluids. Magnesium was replaced. Pain is improved after treatment. We will plan on dispelling home. Warning signs and symptoms for which to return to the emerge department reviewed. She otherwise needs to follow-up with her PCP. She understands and is agreeable this plan. Patient discharged home in stable condition. C. difficile is currently pending. ED Disposition - Plan for ED Patient: Disposition: Home or Assisted Living Diagnosis: Pulmonary abscess, Chest pain, Dyspnea, Diarrhea, Dehydration, Hyperglycemia, Hypomagnesemia Instructions: ED Chest Pain NonCardiac, ED Diet for Vomiting or Diarrhea Adult, ED Dyspnea [facility]errals: [facility] [Primary [facility] Provider] - 2 Days
[2020-07-11 21:58] LABS: Anion Gap 7 (5-15); BUN 9 mg/dL (7-18); BUN/Creat Ratio 11.4 RATIO (10-20); Calcium,Total 8.7 mg/dL (8.5-10.1); Chloride 102 mmol/L (98-107); Creatinine, Serum 0.79 mg/dL (0.55-1.02); EST Glomerular Filtration Rate 82 mL/min (>60); Est Glom Filt Rate - Afr Amer 100 mL/min (>60); Estimated Creatinine Clearance 80.64 ml/min; Glucose 348 mg/dL (74-106); Magnesium 1.4 mg/dL (1.6-2.6); Potassium 3.6 mmol/L (3.5-5.1); Sodium Level 136 mmol/L (136-145)
[2020-07-11 22:18] VITALS: BP 127/83; PULSE 97; RESP 21; TEMP 36.9; O2SAT 99
[2020-07-11] MEDS: HYDROcodone Bitartrate/Apap 5/325 Tablet PO (23:21)
[2020-07-12 01:34] VITALS: BP 119/80; PULSE 90; RESP 20; O2SAT 97
== END 2020-07-12 01:36 | disposition home or self-care (01) ==
PROVIDERS: Emergency Provider Emergency Medicine
DX: J85.2 Abscess of lung without pneumonia (principal); R07.9 Chest pain, unspecified; R06.00 Dyspnea, unspecified; R19.7 Diarrhea, unspecified; E86.0 Dehydration; R73.9 Hyperglycemia, unspecified; E83.42 Hypomagnesemia; F17.200 Nicotine dependence, unspecified, uncomplicated
CPT/HCPCS: 71045; 80048; 83735; 84484; 85025; 93005; 96361; 96374; 99285; J7030; A4216

== ENCOUNTER 2020-07-12 15:46 | Emergency (ER) | payer OTHER, SELFPAY ==
[2020-07-11 20:08] VITALS: BMI 30.7
[2020-07-12 15:48] VITALS: BP 137/82; PULSE 127; RESP 18; TEMP 36.6; O2SAT 99; BMI 29.7
--- NOTE | 2020-07-12 16:42 | ED.DCSUM_ITS ---
- ER Visit Summary Date of Service: 07/12/20 Chief Complaint: Lung pain History of Present Illness: The patient is a 49 F who tells me she has had this continued lung pain for weeks. She was diagnosed with cavitary pneumonia 6 weeks ago. She is also been diagnosed with Pastora's granulomatosis. She has b een following with the [facility] for this. She coughed last night and had an increase of pain. She was seen here and was discharged. She is in pain management currently at the [facility]. She is also currently taking OxyContin. She stopped taking Flagyl last night because she could not tolerate it. She has had no fevers recently. Tylenol is not helping with her pain at home. Not mentioned me that she was actually on Percocet at home. Physical Examination: Vital signs reviewed. Rate was 108 when I evaluated the patient. HEENT exam unremarkable. Heart is tachycardic and regular rhythm without murmurs. Lungs are clear to auscultation. Tenderness of the chest on the left lower area. Abdomen is soft and nontender. Extremities reveal no edema. Skin exam normal. Neurologic exam normal. Test Results: None performed. the patient was seen last night and had laboratory studies and a chest x-ray. I do not feel these need to be repeated at this time. I will give her 1 dose of analgesia here. She is in pain management so I will not prescribe her any medications to take at home. She is a patient of the [facility] and she needs to call them for any further follow-up on this condition. Emergency Department Course and Treatment: [] Treatment Plan: [] Disposition: Discharge Impression: Pleural pain This note was generated with [employer] dictation software. It may contain incorrect words, spelling, and punctuation that were not noted in review of the chart prior to signing ED Disposition - Plan for ED Patient: Disposition: Home or Assisted Living Instructions: ED Chest Pain Pleurisy Referrals: [facility] [Primary Care Provider] -
[2020-07-12] MEDS: Morphine 4 MG/ML Syringe IM (16:54)
[2020-07-12 17:15] VITALS: O2SAT 99
--- NOTE | 2020-07-12 17:16 | ED.RN ---
pt request for stool sample to be sent. RN informed MD, order entered and stool sent.
== END 2020-07-12 17:26 | disposition home or self-care (01) ==
LOC: ED 16:53
PROVIDERS: Emergency Provider Emergency Medicine
DX: R07.81 Pleurodynia (principal)
CPT/HCPCS: 87493; 96372; 99282

== ENCOUNTER 2020-07-14 00:57 | Emergency (ER) | payer OTHER, SELFPAY ==
[2020-07-14 00:58] VITALS: BP 125/74; PULSE 108; RESP 18; TEMP 36.7; O2SAT 97; BMI 31.8
--- NOTE | 2020-07-14 01:27 | EKG12_ITS ---
Test Reason : CP Blood Pressure : / mmHG Vent. Rate : 109 BPM Atrial Rate : 109 BPM P-R Int : 150 ms QRS Dur : 080 ms QT Int : 322 ms P-R-T Axes : 050 033 051 degrees QTc Int : 433 ms Sinus tachycardia Otherwise normal ECG Confirmed by SAM SHEIKH, LORI ([id number]), editor map KEHINDE MONTOYA ([id number]) on 07/16/2020 2:36:25 PM Referred By: MORENITA Confirmed By:LORI VARGAS MD
--- NOTE | 2020-07-14 01:28 | CT_ITS ---
STUDY: CTA CHEST REASON FOR EXAM: Female, 49 years old. CHEST PAIN,PT HAS CAVITARY LUNG LESION -- HX:WEGENERS VASCULITIS,DIABETES,HYPOTHYROID,SEIZURES RADIATION DOSAGE (If Supplied By Facility): CTDIvol = ( 7.21 ) mGy, DLP = ( 502.16 ) mGycm TECHNIQUE: The examination was performed with the intravenous administration of IV 100mL Isovue-370. Post-processing of the angiographic images was performed, with multiplanar reformation and 3D reconstruction. Individualized dose optimization techniques were used for this CT. COMPARISON: 06/15/2020 FINDINGS: Normal enhancement of the main pulmonary artery and right and left pulmonary arteries. Normal enhancement of the bilateral peripheral pulmonary arteries. There is no demonstrated pulmonary embolism. Normal thoracic aorta and visualized great vessels. There is no demonstrated aortic dissection. Normal heart and pericardium. Enlarged mediastinal nodes. LEFT hilar adenopathy. The lungs are expanded. There is a pleural-based spiculated mass at the RIGHT lung base measuring 3.4 cm. There are pleural-based cavitating masses at the LEFT lung base measuring up to 4.6 cm. There are noncalcified subcentimeter nodules at the LEFT lung base. There is a noncalcified subcentimeter nodule in the superior segment of the RIGHT lower lung. Findings suggest necrotic metastases versus septic emboli. There is a small LEFT pleural effusion. There is NO pneumothorax. There is NO active pneumonitis. Normal chest wall structures. Normal osseous structures. Normal visualized upper abdomen. CT/CTA Chest W/WO Contrast IMPRESSION: There is no demonstrated pulmonary embolism. Normal thoracic aorta and visualized great vessels. There is no demonstrated aortic dissection. Normal heart and pericardium. Enlarged mediastinal nodes. LEFT hilar adenopathy. Suspected bilateral necrotic metastases versus septic emboli. There is a small LEFT pleural effusion. There is NO pneumothorax. There is NO active pneumonitis. Electronically Signed: Koko John MD at 2:46 EDT , Service support ,
--- NOTE | 2020-07-14 01:28 | ED.VIS.GEN ---
History of Present Illness Chief Complaint: Chest Pain Narrative: Patient is a 49-year-old female who presents with chest pain. Patient has a history of Pastora's vasculitis. She has a cavitary lesion in the lung. She was recently hospitalized at the [facility]. She has had multiple recent emergency department visits for shortness of breath and pain. She states that she was at rest sitting smoking a cigarette. She became lightheaded her vision went dim and she felt as if she may lose consciousness. She then developed chest pain. She describes this as a tightness in the center of her chest radiating to her left shoulder and ear. She complains of feeling short of breath. She denies any history of coronary disease. She is diabetic. Past Medical History - Allergies and Home Meds Allergies/Adverse Reactions: Allergies NSAIDS (Non-Steroidal Anti-Inflamma Allergy (Verified 07/14/20 01:01) Swelling ketorolac [From Toradol] Adverse Reaction (Verified 07/14/20 01:01) headache prednisone Adverse Reaction (Verified 07/14/20 01:01) PT UNSURE OF REACTION Severely elevated blood sugars (this was not a reaction option to choose) tramadol Adverse Reaction (Verified 07/14/20 01:01) headache Primary Care Physician: [place] [Primary Care Provider] - Past Medical History: - - Diabetes, stroke, Pastora's colitis, cavitary lesion of lung Surgical History: hysterectomy, - - Fusion and disc replacement C5-6 and C6-7 Smoking Status: Current every day smoker - Family History Maternal Family History: Reports: - - Thyroidism Paternal Family History: Reports: Hypertension Review of Systems All systems negative except as indicated General: Denies: Fever ENT: Denies: Bilateral ear pain Cardiovascular: Reports: Chest pain, - - Near syncope Respiratory: Reports: Dyspnea Gastrointestinal: Denies: Abdominal pain Skin: Denies: Rash Neurological: Denies: Headache Allergy: Denies: Uticaria Physical Exam Vital Signs/Narrative: Vital Signs Temp Pulse Resp BP Pulse Ox 07/14/20 00:58 98.1 F 108 H 18 125/74 H 97 Inital Vital Signs reviewed: Yes General: Well nourished Head: Normocephalic Eyes: EOMI Neck: Supple Cardiovascular: - - Heart is regular tachycardia Respiratory: No distress, CTA bilaterally Abdomen: Soft, Nontender Extremities: Nontender Skin: Normal color Neurological: Alert Psychological: - - Patient is anxious, tremulous, tearful Diagnostic/Tx/Re-eval Impressions Chest CTA 07/14/20 01:28 IMPRESSION: There is no demonstrated pulmonary embolism. Normal thoracic aorta and visualized great vessels. There is no demonstrated aortic dissection. Normal heart and pericardium. Enlarged mediastinal nodes. LEFT hilar adenopathy. Suspected bilateral necrotic metastases versus septic emboli. There is a small LEFT pleural effusion. There is NO pneumothorax. There is NO active pneumonitis. Electronically Signed: Koko John MD at 2:46 EDT , Service support , 07/14/20 01:28 CTA Chest W/WO Contrast [CT] Stat Laboratory Results 07/14/20 07/14/20 07/14/20 01:00 01:00 01:00 WBC 13.1 H RBC 4.35 Hgb 11.4 L Hct 35.2 L MCV 80.9 L MCH 26.2 L MCHC 32.4 RDW Std Deviation 38.8 RDW Coeff of Tere 13.2 Plt Count 273 MPV 9.4 Immature Gran % (Auto) 0.700 Neut % (Auto) 54.7 Lymph % (Auto) 31.6 [place] % (Auto) 9.7 Eos % (Auto) 2.7 Baso % (Auto) 0.6 Absolute Neuts (auto) 7.2 Absolute Lymphs (auto) 4.12 Nucleated RBC % 0 PT 14.6 INR 1.2 Sodium 133 L Potassium 3.5 Chloride 99 Carbon Dioxide 28.0 Anion Gap 6 BUN 8 Creatinine 0.68 Estim Creat Clear Calc 97.32 Est GFR (MDRD) Af Amer 119 Est GFR (MDRD) Non-Af 98 BUN/Creatinine Ratio 11.8 Glucose 249 H Calcium 8.8 Total Bilirubin 0.20 AST 24 ALT 16 Alkaline Phosphatase 115 Troponin I < 0.015 Total Protein 7.8 Albumin 2.9 L Globulin 4.9 H Albumin/Globulin Ratio 0.6 L - Medical Decision Making Patient was given IV fluids, morphine, Zofran. EKG shows sinus tachycardia at a rate of 109 no acute ischemic changes. On reevaluation heart rate less than 100. Her diagnostic evaluation as above. Patient has been extensively evaluated for this. She follows with multiple specialists at the [facility]. She is currently on antibiotics and eventually they are planning on surgical intervention. I discussed with her we could hospitalize her transfer back to the [facility]. The patient would prefer to go home. She states she will contact her specialist tomorrow. She states she is able to stay in close contact with them. She does not want to be admitted or transferred at this time. She does understand to return for any new or worsening symptoms. Patient was discharged. ED Disposition - Plan for ED Patient: Disposition: Home or Assisted Living Diagnosis: Necrotizing pneumonia, Wegeners granulomatosis [facility]errals: [facility] [Primary Care Provider] -
[2020-07-14 01:52] LABS: ALB/GLOB Ratio 0.6 RATIO (0.9-2.4); AST(SGOT) 24 U/L (15-37); Alanine Aminotransfer ALT/SGPT 16 U/L (13-56); Albumin, Serum 2.9 g/dL (3.2-5.0); Alkaline Phosphatase 115 U/L (45-117); Anion Gap 6 (5-15); BUN 8 mg/dL (7-18); BUN/Creat Ratio 11.8 RATIO (10-20); Calcium,Total 8.8 mg/dL (8.5-10.1); Chloride 99 mmol/L (98-107); Creatinine, Serum 0.68 mg/dL (0.55-1.02); EST Glomerular Filtration Rate 98 mL/min (>60); Est Glom Filt Rate - Afr Amer 119 mL/min (>60); Estimated Creatinine Clearance 97.32 ml/min; Globulin 4.9 g/dL (2.2-4.2); Glucose 249 mg/dL (74-106); Potassium 3.5 mmol/L (3.5-5.1); Protein, Total 7.8 g/dL (6.4-8.2); Sodium Level 133 mmol/L (136-145)
[2020-07-14 01:53] LABS: Absolute Lymphocyte Count 4.12 X10^3/uL (0.83-4.51); Absolute Neutrophil Count 7.2 X10^3/uL (2.0-7.7); Basophil# 0.08 X10^3/uL; Basophil% 0.6 % (0-1); Eosinophil# 0.35 X10^3/uL; Eosinophils% 2.7 % (0-5); Hematocrit 35.2 % (37-47); Hemoglobin 11.4 g/dL (12.0-15.0); Lymphocyte # 4.12 X10^3/ul (4.0); Lymphocyte % 31.6 % (19-41); Mean Corp Hgb Conc 32.4 g/dL (32-36); Mean Corpuscular Hgb 26.2 pg (27.0-32.0); Mean Corpuscular Volume 80.9 fL (81-99); Mean Platelet Vol. 9.4 fl (6.2-12.0); Monocyte# 1.26 X10^3/uL; Monocyte% 9.7 % (0-10); NRBC Flagged by Analyzer 0 % (0-5); Neutrophil # 7.15 X10^3/uL (2.7-7.7); Neutrophil % 54.7 % (47-70); Platelet Count 273 K/mm3 (150-450); RBC Distribution Width CV 13.2 % (11.6-14.6); RBC Distribution Width SD 38.8 fl (35.1-43.9); Red Blood Count 4.35 M/mm3 (4.2-5.4); White Blood Count 13.1 K/mm3 (4.4-11.0)
[2020-07-14 01:54] LABS: International Normalized Ratio 1.2; Prothrombin Time (Protime)PT. 14.6 SECONDS (11.7-14.9)
[2020-07-14] MEDS: Ondansetron 4 MG/2 ML Vial IV (02:12)
[2020-07-14] MEDS: Morphine 4 MG/ML Syringe IV ×2 (02:12→03:50)
[2020-07-14] MEDS: 0.9% Normal Saline 1,000 ML 1000 ML IV (02:12)
[2020-07-14 04:07] VITALS: BP 114/77; PULSE 107; RESP 16; O2SAT 96
== END 2020-07-14 04:07 | disposition home or self-care (01) ==
PROVIDERS: Emergency Provider Emergency Medicine
DX: J18.8 Other pneumonia, unspecified organism (principal); M31.30 Wegener's granulomatosis without renal involvement; F17.210 Nicotine dependence, cigarettes, uncomplicated; E11.9 Type 2 diabetes mellitus without complications; Z79.4 Long term (current) use of insulin
CPT/HCPCS: 71275; 80053; 84484; 85025; 85610; 93005; 96361; 96374; 96375; 96376; 99285; J7030; Q9967; A4216; J2405

== ENCOUNTER 2020-07-24 13:42 | Emergency (ER) | payer OTHER, SELFPAY ==
[2020-07-24 13:43] VITALS: BP 144/85; PULSE 123; RESP 18; TEMP 36.4; O2SAT 100; BMI 29.3
--- NOTE | 2020-07-24 15:20 | ED.VIS.GEN ---
History of Present Illness Chief Complaint: Weakness Informant: Patient Narrative: 49-year-old female presenting with shortness of breath as well as worsening lower rib pain bilaterally. This is worse on the left side. She states she was recently diagnosed with stage IV lung cancer. She is met with her heme oncologist and they have done a biopsy. They believe this might be small cell lung cancer. She previously had a CTA which did not show any PEs but did show necrotic areas versus septic emboli in the lungs. Patient was admitted in the ICU at [facility]. She was discharged home and told to come back if she has any new or worsening symptoms. Patient does not generally require oxygen at baseline and is not requiring any today. She denies fevers. She does not have any known COVID exposures except for her recent hospital stay. She does have a cough but it is not productive. - Past Medical History (1) Elevated lactic acid level Status: Chronic (2) Hyperglycemia Status: Chronic (3) Lung abscess Status: Chronic (4) Diabetes Status: Chronic (5) History of type 1 diabetes mellitus Status: Chronic (6) Hypothyroidism Status: Chronic (7) Seizures Status: Chronic (8) Wegeners granulomatosis Status: Chronic Past Medical History - Allergies and Home Meds Allergies/Adverse Reactions: Allergies NSAIDS (Non-Steroidal Anti-Inflamma Allergy (Verified 07/24/20 13:46) Swelling ketorolac [From Toradol] Adverse Reaction (Verified 07/24/20 13:46) headache prednisone Adverse Reaction (Verified 07/24/20 13:46) PT UNSURE OF REACTION Severely elevated blood sugars (this was not a reaction option to choose) tramadol Adverse Reaction (Verified 07/24/20 13:46) headache Primary Care Physician: [facility] [Primary Care Provider] - Prior records reviewed: Yes Past Medical History: - - Stage IV lung cancer Surgical History: hysterectomy, - - Fusion and disc replacement C5-6 and C6-7 Lives: With Family, Jail Smoking Status: Current every day smoker Alcohol: None Drugs: None - Family History Maternal Family History: Reports: - - Thyroidism Paternal Family History: Reports: Hypertension Review of Systems General: Reports: Malaise. Denies: Chills, Fever Eyes: Denies: Visual changes - bilaterally, Diplopia ENT: Denies: Rhinorrhea, Sore throat Cardiovascular: Reports: Chest pain, Heart racing Respiratory: Reports: Dyspnea, Cough Gastrointestinal: Denies: Abdominal pain, Nausea, Vomiting Genitourinary: Denies: Dysuria, Hematuria Musculoskeletal: Denies: Myalgias, Arthralgias Skin: Reports: Rash Physical Exam Vital Signs/Narrative: Vital Signs Temp Pulse Resp BP Pulse Ox 07/24/20 13:43 97.5 F L 123 H 18 144/85 H 100 Inital Vital Signs reviewed: Yes General: Well nourished, Well developed Head: Normocephalic, Atraumatic Eyes: Perrl, EOMI ENT: Moist mucous membranes Cardiovascular: Tachycardia, - - Basilar crackles greater on the left Respiratory: No distress Abdomen: Soft, Nondistended Back: Nontender Extremities: Nontender, No edema. Negative for: Calf Tenderness Skin: Normal color, No rash Neurological: Alert, Oriented x3 Psychological: Normal affect, Normal Mood Diagnostic/Tx/Re-eval - Rhythm Strip Rhythm Strip: Sinus Rhythm Rate: 103 - EKG Initial EKG Interpretation: No Acute Injury Pattern, Sinus Tachycardia - Medical Decision Making 49-year-old female with recently diagnosed stage IV lung cancer which is believed to be squamous cell carcinoma presents with left-sided rib pain and states she just feels off today. She is coughing but does not appear dyspneic. Other than slightly tachycardic her other vital signs are normal. On examination she does have some diminished breath sounds at the bilateral bases. She has no wheezing on exam. She is not had a fever. Her EKG performed on arrival is sinus rhythm at 102 bpm. Patient was given IV fluids, morphine, Dilaudid for pain in the left rib. I did review previous notes which shows that she had similar pain while in the hospital. She does state that they discharged her home without any pain medication. Lab work and imaging are pending. Patient will be signed out to incoming ED physician for follow up of labs and imaging as well as disposition. 1. Chest pain 2. Cough 3. History of Stage 4 Lung CA 4. History of necrotizing pneumonia and septic shock ED Disposition - Plan for ED Patient: [facility]errals: [facility] [Primary Care Provider] -
[2020-07-24 15:38] VITALS: O2SAT 99
--- NOTE | 2020-07-24 15:38 | CT_ITS ---
STUDY: CTA CHEST REASON FOR EXAM: Female, 49 years old. WEAKNESS, LUNG CA RADIATION DOSAGE (If Supplied By Facility): CTDIvol = ( 14.49 ) mGy, DLP = ( 489.374 ) mGycm TECHNIQUE: The examination was performed with the intravenous administration of IV 100mL Isovue-370. Post-processing of the angiographic images was performed, with multiplanar reformation and 3D reconstruction. Individualized dose optimization techniques were used for this CT. COMPARISON: 07/14/2020 FINDINGS: Normal enhancement of the main pulmonary artery and right and left pulmonary arteries. Normal enhancement of the bilateral peripheral pulmonary arteries. There is no demonstrated pulmonary embolism. Normal thoracic aorta and visualized great vessels. There is no demonstrated aortic dissection. Normal heart and pericardium. Normal mediastinum. Normal hilar regions. Normal visualized trachea and bronchi. The lungs are well expanded. Multiple thick-walled cavitary nodules in the lung bases consistent with metastatic disease. Normal pleura. Azygos lobe which is a normal variant. Normal chest wall structures. Normal osseous structures. Normal visualized upper abdomen. CT/CTA Chest W/WO Contrast IMPRESSION: 1. No CT evidence of pulmonary embolism. 2. Multiple thick-walled cavitary nodules in the lung bases consistent with metastatic disease. Electronically Signed: Peewee iRchards MD at 17:34 EDT Tel , Service support ,
--- NOTE | 2020-07-24 15:38 | EKG12_ITS ---
Test Reason : CP Blood Pressure : / mmHG Vent. Rate : 103 BPM Atrial Rate : 103 BPM P-R Int : 134 ms QRS Dur : 074 ms QT Int : 328 ms P-R-T Axes : 045 023 043 degrees QTc Int : 429 ms Sinus tachycardia Otherwise normal ECG Confirmed by TIKA FISHER ([id number]), city editor KEHINDE MONTOYA ([id number]) on 07/26/2020 8:55:37 AM Referred By: ROMY Confirmed By:TIKA FISHER
[2020-07-24] MEDS: Ondansetron 4 MG/2 ML Vial IV (15:51)
[2020-07-24] MEDS: 0.9% Normal Saline 1,000 ML 1000 ML IV (15:51)
[2020-07-24] MEDS: Morphine 4 MG/ML Syringe IV (15:51)
[2020-07-24 15:52] VITALS: BP 110/83; PULSE 112; RESP 13; O2SAT 99
[2020-07-24] MEDS: HYDROmorphone 0.5 MG/0.5 ML SYRINGE IV (16:45)
[2020-07-24 16:47] LABS: Absolute Neutrophil Count 6.4 X10^3/uL (2.0-7.7); Basophil# 0.07 X10^3/uL; Basophil% 0.7 % (0-1); Eosinophil# 0.29 X10^3/uL; Eosinophils% 2.7 % (0-5); Hematocrit 37.9 % (37-47); Hemoglobin 11.8 g/dL (12.0-15.0); Mean Corp Hgb Conc 31.1 g/dL (32-36); Mean Corpuscular Volume 80.3 fL (81-99); Monocyte% 9.3 % (0-10); NRBC Flagged by Analyzer 0 % (0-5); Neutrophil # 6.43 X10^3/uL (2.7-7.7); Neutrophil % 59.9 % (47-70); Platelet Count 300 K/mm3 (150-450); RBC Distribution Width CV 13.3 % (11.6-14.6); RBC Distribution Width SD 38.7 fl (35.1-43.9); Red Blood Count 4.72 M/mm3 (4.2-5.4); White Blood Count 10.7 K/mm3 (4.4-11.0)
[2020-07-24 17:05] LABS: Anion Gap 8 (5-15); BUN 11 mg/dL (7-18); BUN/Creat Ratio 13.1 RATIO (10-20); Calcium,Total 9.2 mg/dL (8.5-10.1); Chloride 99 mmol/L (98-107); Creatinine, Serum 0.84 mg/dL (0.55-1.02); EST Glomerular Filtration Rate 76 mL/min (>60); Est Glom Filt Rate - Afr Amer 92 mL/min (>60); Estimated Creatinine Clearance 78.78 ml/min; Glucose 456 mg/dL (74-106); Potassium 4.6 mmol/L (3.5-5.1); Sodium Level 133 mmol/L (136-145)
[2020-07-24 18:30] VITALS: BP 138/79; PULSE 93; RESP 16; O2SAT 98
[2020-07-24 18:55] LABS: Bacteria 0 SEEN /hpf (None Seen); Mucous, Urine 0 SEEN /hpf (<or=2+); Red Blood Cells-Urine 0 SEEN /hpf (0-5); White Blood Cells 0 SEEN /hpf (0-5)
--- NOTE | 2020-07-24 19:39 | DCINST.ED_ITS ---
ED Disposition - Plan for ED Patient: Disposition: Home or Assisted Living Diagnosis: Lung cancer Instructions: ED Weakness [facility] Prescriptions: Hydrocodone Bitart/Apap 5-325 [Peel 5MG-325MG] 1 tab PO Q4H PRN PRN 2 Days #10 tab PRN Reason: Pain Transmission Status: Pending to [facility] Referrals: [facility] [Primary Care Provider] - 3-5 Days
--- NOTE | 2020-07-24 19:39 | ED.DEP ---
ED Disposition - Plan for ED Patient: Disposition: Home or Assisted Living Diagnosis: Lung cancer Instructions: ED Weakness [facility] Prescriptions: Hydrocodone Bitart/Apap 5-325 [Stuart 5MG-325MG] 1 tab PO Q4H PRN PRN 2 Days #10 tab PRN Reason: Pain Transmission Status: Pending to [facility] Referrals: [facility] [Primary Care Provider] - 3-5 Days
[2020-07-24 19:40] LABS: Color, Urine Yellow (Yellow); Glucose, Dipstick 1000 mg/dl (Normal); Ketone-Dipstick Negative (Negative); Leukocyte Esterase-Dipstick 25 /ul (Negative); Nitrite-Dipstick Positive (Negative); Occult Blood-Urine Negative /ul (Negative); Protein-Dipstick 15 mg/dl (Negative); Urine Bilirubin Dipstick Negative (Negative); Urine Clarity Clear (Clear); Urine Urobilinogen Normal (Normal)
[2020-07-24 19:42] VITALS: BP 107/78; PULSE 88; O2SAT 99
[2020-07-24 19:48] LABS: Squamous Epithelial Cells - UA 0-5 SEEN /hpf (5-10)
== END 2020-07-24 19:46 | disposition home or self-care (01) ==
PROVIDERS: Emergency Provider Student in an Organized Health Care Education/Training Program
DX: R07.9 Chest pain, unspecified (principal); R05 Cough; F17.200 Nicotine dependence, unspecified, uncomplicated; E10.9 Type 1 diabetes mellitus without complications; E03.9 Hypothyroidism, unspecified; Z79.4 Long term (current) use of insulin
CPT/HCPCS: 71275; 80048; 81001; 82009; 84484; 85025; 93005; 96361; 96374; 96375; 99285; J7030; Q9967; A4216; J2405

== ENCOUNTER 2020-07-27 10:33 | Emergency (ER) | payer OTHER, SELFPAY ==
[2020-07-27 10:35] VITALS: BP 130/83; PULSE 115; RESP 14; TEMP 36.6; O2SAT 98; BMI 29.6
--- NOTE | 2020-07-27 10:45 | EKG12_ITS ---
Test Reason : CP Blood Pressure : / mmHG Vent. Rate : 112 BPM Atrial Rate : 112 BPM P-R Int : 136 ms QRS Dur : 072 ms QT Int : 328 ms P-R-T Axes : 064 040 057 degrees QTc Int : 447 ms Sinus tachycardia Otherwise normal ECG Confirmed by FLORA SHEIKH, ALBA ([id number]), content editor YVONNE CLARK ([id number]) on 07/31/2020 7:50:02 AM Referred By: MAGGI Confirmed By:ALBA HINES MD
--- NOTE | 2020-07-27 10:46 | ED.DCSUM_ITS ---
History of Present Illness Informant: Patient, Spouse/S.O. Onset: Yesterday Activity at onset: Rest Timing: Continuous Quality: Sharp, Stabbing Location: Substernal Current Severity: Severe Maximum Severity: Severe Worsened By: Nothing Relieved By: Nothing Associated Symptoms: Negative for: Nausea, Vomiting, Diaphoresis, Dyspnea, Cough, Fever, Lightheadedness, Acid Reflux, Palpitations Prior Similar Symptoms: Yes Recent Illness/Hospitalization: Yes <Dimitri Painting - Last Filed: 07/27/20 12:22> <Kelly Saenz - Last Filed: 07/27/20 14:10> Chief Complaint: Chest Pain Past Medical History Prior records reviewed: Yes Surgical History: hysterectomy, - - Fusion and disc replacement C5-6 and C6-7 Lives: With Family Smoking Status: Current every day smoker Alcohol: None Drugs: None - Family History Maternal Family History: Reports: - - Thyroidism Paternal Family History: Reports: Hypertension <Dimitri Painting - Last Filed: 07/27/20 12:22> <Kelly Saenz - Last Filed: 07/27/20 14:10> - Allergies and Home Meds Allergies/Adverse Reactions: Allergies NSAIDS (Non-Steroidal Anti-Inflamma Allergy (Verified 07/27/20 10:34) Swelling ketorolac [From Toradol] Adverse Reaction (Verified 07/27/20 10:34) headache prednisone Adverse Reaction (Verified 07/27/20 10:34) PT UNSURE OF REACTION Severely elevated blood sugars (this was not a reaction option to choose) tramadol Adverse Reaction (Verified 07/27/20 10:34) headache Primary Care Physician: [facility] [Primary Care Provider] - Keep Vic appointment Review of Systems All systems negative except as indicated General: Denies: Chills, Fever, Sweats Eyes: Denies: Visual changes - bilaterally, Diplopia ENT: Denies: Rhinorrhea, Sore throat Cardiovascular: Denies: Chest pain, Palpitations Respiratory: Reports: Dyspnea. Denies: Cough, Dyspnea on exertion Gastrointestinal: Denies: Abdominal pain, Nausea, Vomiting, Diarrhea, Melena, Hematochezia Genitourinary: Denies: Dysuria, Hematuria, Frequency Musculoskeletal: Denies: Back pain, Extremity Pain Skin: Denies: Rash, Wounds Neurological: Denies: Headache, Weakness, Numbness <Dimitri Painting Last Filed: 07/27/20 12:22> Physical Exam Vital Signs/Narrative: Vital Signs Temp Pulse Resp BP Pulse Ox 07/27/20 10:35 98 F 115 H 14 130/83 H 98 Inital Vital Signs reviewed: Yes General: Well nourished, Well developed, No Acute Distress Head: Normocephalic, Atraumatic Eyes: Perrl, EOMI ENT: Moist mucous membranes, No rhinorrhea Neck: Supple, Nontender Cardiovascular: Regular rhythm, No murmurs, Tachycardia Respiratory: No distress, CTA bilaterally, Chest nontender Abdomen: Soft, Nontender, Nondistended, Normal bowel sounds Back: Nontender, Normal Inspection Extremities: Nontender, No edema. Negative for: Tenderness, Edema, Calf Tenderness Skin: Normal color, No rash Neurological: Alert, Oriented x3, Cranial nerves II-XII grossly intact, Normal Strength, Normal Sensation Psychological: Normal affect, Normal Mood <MarclemuelDimitri - Last Filed: 07/27/20 12:22> Vital Signs/Narrative: Vital Signs Temp Pulse Resp BP Pulse Ox 07/27/20 12:47 94 15 114/75 95 07/27/20 12:01 101 H 15 121/87 H 98 07/27/20 11:12 97 07/27/20 11:11 97 07/27/20 10:35 98 F 115 H 14 130/83 H 98 <Kelly Saenz - Last Filed: 07/27/20 14:10> Diagnostic/Tx/Re-eval Chest X-Ray - ED: 2 View, - - Patient has worsening of her cavitary lesion from previous imaging - Rhythm Strip Rhythm Strip: Sinus Tach Rate: 112 Ectopy: None Treatment: Morphine Repeat Eval: Pain Free - Medical Decision Making EKG sinus tachycardia rate of [address] segment or T wave changes normal intervals no ectopy. Pain treated with Dilaudid. I reviewed the patient's records she has likely metastatic lung cancer based off her CT chest that she had done 3 days ago. She has an appointment on Thursday with pulmonology and then a biopsy set up for the next day on Thursday through the [place]. Her labs in the emergency department are unremarkable. Her troponin is negative. Chest x-ray shows slightly worsening of her cavitary lesion. At this time after dose of Dilaudid that her pain is improved we do not feel she requires admission she is not hypoxic I did perform a OARRS report on the patient she was given 2 days worth of Percocet 3 days ago from this emergency department and we will prescribe her 3 more days until she can see her doctors next week for further work-up of her cancer. <Dimitri Painting - Last Filed: 07/27/20 12:22> - Medical Decision Making Patient seen and evaluated with physicians dietary assistant. Patient presents with left-sided chest pain. She has been undergoing work-up for a left sided lung mass that was initially felt to be a cavitary pneumonia. It is now felt the patient has metastatic lung cancer. She has recently been on Percocet to help control pain. She has been seen and evaluated with multiple cardiac work-ups as well. Patient sitting upright in bed no acute distress. Head neck examination unremarkable. Heart is regular rate and rhythm. Lung sounds are clear. Abdomen is soft and nontender. Lower extremity examination shows no calf tenderness or edema. EKG, chest x-ray, blood work unremarkable at this visit. Patient is scheduled for a biopsy this coming Thursday. In the meantime she will be given a prescription for Percocet to help control pain. Position: Discharge <Kelly Saenz - Last Filed: 07/27/20 14:10> ED Disposition <Dimitri Painting - Last Filed: 07/27/20 12:22> <Kelly Saenz - Last Filed: 07/27/20 14:10> - Plan for ED Patient: Disposition: Home or Assisted Living Diagnosis: Diabetes, Chest pain, Lung mass Instructions: ED Chest Pain Atypical Unkn Cause Prescriptions: Oxycodone HCl/Acetaminophen [Percocet 5/325] 1 tab PO Q6H PRN PRN 3 Days #12 tab PRN Reason: Pain Transmission Status: Received by [facility] - Keep Vic appointment
--- NOTE | 2020-07-27 10:50 | RAD_ITS ---
STUDY: X-RAY CHEST REASON FOR EXAM: Female, 49 years old. Chest pain TECHNIQUE: Single AP portable view of the chest. COMPARISON: Comparison is made with prior examination dated 07/11/2020. Comparison is also made with prior CT scan of thorax dated 07/24/2000 FINDINGS: EKG electrodes are seen. There is a 4.8 cm x 3.9 cm rounded soft tissue mass in the peripheral lateral inferior aspect of the left hemithorax. This has increased slightly in size as compared to prior study. There is also evidence of a 1.3 cm lucency within it, this may represent an abscess or cavitating neoplasm.. Normal size heart. Normal mediastinum and janes. Normal visualized pulmonary arteries. Normal visualized aortic arch and descending thoracic aorta. Normal visualized thoracic spine. Normal visualized ribs, clavicles, and shoulders. There is no demonstrated abnormality of the visualized soft tissue structures of the upper abdomen. RAD/Chest 1 View (Portable) IMPRESSION: Mild increase in size of the pleural-based nodular density in the left lower hemithorax as described with focal central lucency. This may represent cavitary neoplasm versus abscess. Electronically Signed: Kaden Liang, at 11:11 EDT , Service support ,
[2020-07-27] MEDS: HYDROmorphone 0.5 MG/0.5 ML SYRINGE IV (11:07)
[2020-07-27] MEDS: Ondansetron 4 MG/2 ML Vial IV (11:07)
[2020-07-27] MEDS: 0.9% Normal Saline 1,000 ML 250 ML IV (11:08)
[2020-07-27 11:11] VITALS: O2SAT 97
[2020-07-27 11:12] VITALS: O2SAT 97
[2020-07-27 11:16] LABS: Absolute Lymphocyte Count 2.43 X10^3/uL (0.83-4.51); Absolute Neutrophil Count 6.3 X10^3/uL (2.0-7.7); Basophil# 0.05 X10^3/uL; Basophil% 0.5 % (0-1); Eosinophil# 0.24 X10^3/uL; Eosinophils% 2.4 % (0-5); Hematocrit 38.9 % (37-47); Hemoglobin 12.1 g/dL (12.0-15.0); Lymphocyte # 2.43 X10^3/ul (4.0); Lymphocyte % 24.7 % (19-41); Mean Corp Hgb Conc 31.1 g/dL (32-36); Mean Corpuscular Hgb 24.9 pg (27.0-32.0); Mean Corpuscular Volume 80.2 fL (81-99); Mean Platelet Vol. 8.8 fl (6.2-12.0); Monocyte# 0.74 X10^3/uL; Monocyte% 7.5 % (0-10); NRBC Flagged by Analyzer 0 % (0-5); Neutrophil # 6.32 X10^3/uL (2.7-7.7); Neutrophil % 64.4 % (47-70); Platelet Count 308 K/mm3 (150-450); RBC Distribution Width CV 13.2 % (11.6-14.6); RBC Distribution Width SD 38.4 fl (35.1-43.9); Red Blood Count 4.85 M/mm3 (4.2-5.4); White Blood Count 9.8 K/mm3 (4.4-11.0)
[2020-07-27 11:28] LABS: Anion Gap 6 (5-15); BUN 9 mg/dL (7-18); BUN/Creat Ratio 12.3 RATIO (10-20); Calcium,Total 9.3 mg/dL (8.5-10.1); Chloride 101 mmol/L (98-107); Creatinine, Serum 0.73 mg/dL (0.55-1.02); EST Glomerular Filtration Rate 89 mL/min (>60); Est Glom Filt Rate - Afr Amer 108 mL/min (>60); Estimated Creatinine Clearance 90.65 ml/min; Glucose 223 mg/dL (74-106); Potassium 4.5 mmol/L (3.5-5.1); Sodium Level 136 mmol/L (136-145)
--- NOTE | 2020-07-27 12:00 | CM.ED ---
SOCIAL WORK Informant: Brianna Eckert Reason for Consult: Resources/Support Patient has been approved for ED Care Plan on 07/26/2020. Met with patient and patient's , Serafin in room. Introduced role and reason for referral. Patient gave permission for this worker to speak openly with present. Discussed referral for ED Care Plan and informed Care Plan has been approved. Patient educated on ED Care Plan process and patient verbalized understanding. Patient and gave a medical history. Patient reported back in April had an injury to her spine, C4 and C5. Patient reports shortly after that, in May, was diagnosed with necrotizing pneumonia. Patient reports has declined medically since and states this hospital is the one that found the lung masses. Patient states follows with Dr. Mtz through the [place] and believes to have window caser, but unable to recall name. Patient signed release of information for [facility] for continuity of care. Patient states has appointment for open biopsy on Thursday/Thursday. Patient stated [facility] with [facility] as she has yet to get established with pain management. Patient reports the [facility] informed here unable to write anything for pain until seen by pain management. Patient states one of her doctors stated I should have had the open biopsy 5 weeks ago. Patient tearful when talking about medical care thus far with the [facility] and discussed a past hospitalization here at [facility]. Patient reports, Dr. Serrato labeled me as a drug seeker and I am not. I have talked with [facility] (Patient Advocate) and they are working towards getting that off my medical record. Patient reports Dr. Serrato also tried to give me steroids and I had a terrible reaction to steroids. Patient states has sought outside approval through the [place] to see Dr. Samuels and Dr. Hernandez. Patient hoping to get approval for oncology and pain management outside of the [facility] as well. Patient states driving to [place] to follow with the [place] for treatment would be too much. Discussed patient's mental health. Patient admits to having PTSD from the whole process. Patient denies any history of substance abuse. Discussed possibility of Palliative Medicine once open biopsy completed as patient stated, I know it's lung cancer, just don't know what stage. Patient states is open to referrals and help. Patient stating, my biggest fear is, I don't want to in pain. Whatever time I do have left, I want quality time. Much emotional support and active listening provided throughout. Informed patient a copy of ED Care Plan will be mailed to patient along with additional resources. Updated Dr. Saenz and TONI Painting on the above. Plan: Home with follow up-open biopsy next week Abhinav Abdi, LEVEL GLASS VIAL FILLER, TENTER FRAME BACK TENDER
[2020-07-27 12:01] VITALS: BP 121/87; PULSE 101; RESP 15; O2SAT 98
[2020-07-27 12:47] VITALS: BP 114/75; PULSE 94; RESP 15; O2SAT 95
--- NOTE | 2020-07-31 14:25 | CM.ED ---
SOCIAL WORK Received call from patient. Per patient, was wanting to update on appointment with thoracic surgeon. Patient reports met with thoracic surgeon today and was informed they are not going to do the surgical biopsy as the mass on the left is size of a tennis ball and the mass on right is almost as big. Support provided. Patient wanting additional information on palliative services. Patient provided with number per request. Abhinav Abdi MSW, BUSINESS TRANSFORMATION ANALYST
== END 2020-07-27 12:48 | disposition home or self-care (01) ==
PROVIDERS: Emergency Provider Physician Assistant Medical
DX: E11.9 Type 2 diabetes mellitus without complications (principal); R07.9 Chest pain, unspecified; R91.8 Other nonspecific abnormal finding of lung field; F17.200 Nicotine dependence, unspecified, uncomplicated; Z79.4 Long term (current) use of insulin
CPT/HCPCS: 71045; 80048; 84484; 85025; 93005; 96374; 96375; 99284; A4216; J2405

== ENCOUNTER 2020-07-30 13:04 | Emergency (ER) | payer OTHER, SELFPAY ==
[2020-07-30 13:04] VITALS: BP 130/87; PULSE 121; RESP 18; TEMP 36.4; O2SAT 100; BMI 29.0
[2020-07-30 14:04] LABS: Absolute Lymphocyte Count 2.61 X10^3/uL (0.83-4.51); Absolute Neutrophil Count 5.8 X10^3/uL (2.0-7.7); Basophil# 0.05 X10^3/uL; Basophil% 0.5 % (0-1); Eosinophil# 0.26 X10^3/uL; Eosinophils% 2.7 % (0-5); Hematocrit 35.8 % (37-47); Hemoglobin 11.2 g/dL (12.0-15.0); Lymphocyte # 2.61 X10^3/ul (4.0); Lymphocyte % 27.5 % (19-41); Mean Corp Hgb Conc 31.3 g/dL (32-36); Mean Corpuscular Hgb 24.7 pg (27.0-32.0); Mean Platelet Vol. 8.9 fl (6.2-12.0); Monocyte# 0.69 X10^3/uL; Monocyte% 7.3 % (0-10); NRBC Flagged by Analyzer 0 % (0-5); Neutrophil # 5.84 X10^3/uL (2.7-7.7); Neutrophil % 61.7 % (47-70); Platelet Count 253 K/mm3 (150-450); RBC Distribution Width CV 13.2 % (11.6-14.6); RBC Distribution Width SD 37.3 fl (35.1-43.9); Red Blood Count 4.53 M/mm3 (4.2-5.4); White Blood Count 9.5 K/mm3 (4.4-11.0)
[2020-07-30 14:09] VITALS: BP 119/88; PULSE 103; RESP 21; O2SAT 99
--- NOTE | 2020-07-30 14:11 | ED.VIS.GEN ---
History of Present Illness Chief Complaint: Shortness of Breath Detail of Chief Complaint: Productive cough since Thursday Informant: Patient, Significant Other Onset: Days Context: Sudden Onset Timing: Continuous Quality: Productive cough brown-colored sputum Location: Respiratory Current Severity: Mild Maximum Severity: Moderate Worsened by: Dyspnea on exertion and chest pain Relieved by: Nothing Associated Symptoms: Shaking chills and fever. T-max 99.2 Narrative: Patient is a 49-year-old woman who is scheduled for an open lung biopsy to determine if the abnormality noted is due to Pastora's versus cancer. The chest pain is no different than prior chest pain. The sputum production is new. She denies rhinorrhea, congestion or postnasal drainage. She denies change in smell or taste. She denies photophobia, neck pain or neck stiffness. She does report nausea without vomiting or diarrhea. She denies dysuria, frequency, urgency or hematuria. She also reports swelling of her extremities, both upper and lower. She was seen by Dr. Samuels's nurse practitioner today. She states she was told there was rattling and was prescribed metered-dose inhaler. There is no history of PE or DVT. She denies discoloration of her extremities. She denies pain in her extremities. Prior similar symptoms: Yes Recent Illness/Hospitalization: Yes - Past Medical History (1) Diabetes Status: Chronic (2) Hypothyroidism Status: Chronic (3) Seizures Status: Chronic (4) Wegeners granulomatosis Status: Chronic (5) Cervical radicular pain Status: Inactive (6) Chest pain Status: Inactive Past Medical History - Allergies and Home Meds Allergies/Adverse Reactions: Allergies NSAIDS (Non-Steroidal Anti-Inflamma Allergy (Verified 07/30/20 13:08) Swelling ketorolac [From Toradol] Adverse Reaction (Verified 07/30/20 13:08) headache prednisone Adverse Reaction (Verified 07/30/20 13:08) PT UNSURE OF REACTION Severely elevated blood sugars (this was not a reaction option to choose) tramadol Adverse Reaction (Verified 07/30/20 13:08) headache Primary Care Physician: [facility],[place] [Primary Care Provider] - Prior records reviewed: Yes Surgical History: hysterectomy, - - Fusion and disc replacement C5-6 and C6-7 Lives: Spouse/ Significant Other Smoking Status: Current every day smoker Alcohol: None Drugs: None - Family History Maternal Family History: Family History (Last Reviewed 07/30/20 @ 11:36 by SANDEE Calderon) Grandfather COPD (chronic obstructive pulmonary disease) Family History: Reports: - - Thyroidism Paternal Family History: Family History (Last Reviewed 07/30/20 @ 11:36 by SANDEE Calderon) Grandfather COPD (chronic obstructive pulmonary disease) Family History: Reports: Hypertension Review of Systems General: Reports: Chills, Fever, Malaise, Subjective, Sweats, Weight loss Eyes: Denies: Visual changes - bilaterally, Blurred Vision - bilaterally ENT: Denies: Bilateral ear pain, Rhinorrhea, Sore throat Cardiovascular: Reports: Chest pain. Denies: Palpitations Respiratory: Reports: Dyspnea, Cough, Sputum, Dyspnea on exertion. Denies: Orthopnea, Paroxysmal nocturnal dyspnea Gastrointestinal: Reports: Nausea. Denies: Abdominal pain, Vomiting, Diarrhea, Constipation, Melena, Hematochezia, -, - Genitourinary: Denies: Dysuria, Hematuria, Frequency Musculoskeletal: Reports: Swelling. Denies: Myalgias, Arthralgias, Neck pain, Back pain, Extremity Pain, -, - Skin: Denies: Rash, Wounds Neurological: Denies: Headache, Weakness, Numbness Endocrine: Denies: Polyuria, Polydipsia Hematologic: Denies: Easy bruising, Easy bleeding Physical Exam Vital Signs/Narrative: Vital Signs Temp Pulse Resp BP Pulse Ox 07/30/20 14:09 103 H 21 H 119/88 H 99 07/30/20 13:04 97.6 F L 121 H 18 130/87 H 100 Inital Vital Signs reviewed: Yes General: Well nourished, Well developed, Obese, - - Mild distress and anxiousness Head: Normocephalic, Atraumatic Eyes: Perrl, EOMI. Negative for: Pale conjunctiva, Scleral icterus ENT: Moist mucous membranes, No rhinorrhea, TM's clear Neck: Supple, Nontender, No lymphadenopathy, No JVD Cardiovascular: Regular rhythm, No murmurs, Normal S1, Normal S2, Tachycardia Respiratory: No distress, Chest nontender, Rales, Wheezing, Decreased Air Movement. Negative for: CTA bilaterally Abdomen: Soft, Nontender, Nondistended, Normal bowel sounds Rectal: Deferred Back: Nontender, Normal Inspection. Negative for: CVA tenderness, Spinal tenderness Extremities: Nontender, Edema - Upper and lower extremities mildly pitting Skin: Normal color, No rash, No Trauma. Negative for: Cyanosis, Diaphoresis, Jaundice Neurological: Alert, Oriented x3, Cranial nerves II-XII grossly intact, Normal Strength, Normal Sensation, Normal DTR Psychological: Depressed Diagnostic/Tx/Re-eval Impressions Chest X-Ray 07/30/20 14:40 IMPRESSION: Stable and homogeneous soft tissue mass in the peripheral lateral inferior aspect of the left hemithorax. There now is evidence of blunting of left costophrenic angle. Electronically Signed: Kaden Liang, at 15:00 EDT , Service support , 07/30/20 14:40 Chest PA and Lateral [RAD] Stat Laboratory Results 07/30/20 07/30/20 07/30/20 13:55 13:55 13:55 WBC 9.5 RBC 4.53 Hgb 11.2 L Hct 35.8 L MCV 79.0 L MCH 24.7 L MCHC 31.3 L RDW Std Deviation 37.3 RDW Coeff of Tere 13.2 Plt Count 253 MPV 8.9 Immature Gran % (Auto) 0.300 Neut % (Auto) 61.7 Lymph % (Auto) 27.5 Pitkin % (Auto) 7.3 Eos % (Auto) 2.7 Baso % (Auto) 0.5 Absolute Neuts (auto) 5.8 Absolute Lymphs (auto) 2.61 Nucleated RBC % 0 Sodium 135 L Potassium 3.9 Chloride 101 Carbon Dioxide 29.0 Anion Gap 5 BUN 7 Creatinine 0.73 Estim Creat Clear Calc 90.65 Est GFR (MDRD) Af Amer 109 Est GFR (MDRD) Non-Af 90 BUN/Creatinine Ratio 9.6 L Glucose 259 H Lactic Acid 2.9 H* Calcium 8.7 Chest x-ray compared to prior is unchanged. The x-ray was interpreted by radiologist prior to my review. White count is normal. Lactate is elevated and most likely due to diabetes. Since patient reporting brown-colored sputum will place on doxycycline for typical and atypical pathogen coverage. I was informed by nurse that morphine apparently does not help her pain. In my opinion nothing more is needed at this time. - Medical Decision Making With new symptom of productive cough of brown-colored sputum and abnormal x-ray findings need to evaluate for pneumonia versus respiratory infection versus autoimmune versus obstructive pneumonia. Chest x-ray appropriate blood work was ordered. She was treated with aerosol. ED Disposition - Plan for ED Patient: Disposition: Home or Assisted Living Diagnosis: Acute purulent bronchitis, Lactic acidosis due to diabetes mellitus Instructions: ED Upper Resp Infec Abx Tx Prescriptions: Doxycycline 100 mg PO BID #14 cap Transmission Status: Pending to [facility] Referrals: [facility] [Primary Care Provider] - Keep Vic appointment Additional Instructions: Use inhaler as instructed by Dr. Samuels's nurse practitioner.
[2020-07-30] MEDS: Albuterol 2.5 MG/3 ML VIAL.NEB. INHALATION (14:13)
[2020-07-30 14:15] VITALS: PULSE 113; RESP 12; O2SAT 100
[2020-07-30 14:16] LABS: Anion Gap 5 (5-15); BUN 7 mg/dL (7-18); BUN/Creat Ratio 9.6 RATIO (10-20); Calcium,Total 8.7 mg/dL (8.5-10.1); Chloride 101 mmol/L (98-107); Creatinine, Serum 0.73 mg/dL (0.55-1.02); EST Glomerular Filtration Rate 90 mL/min (>60); Est Glom Filt Rate - Afr Amer 109 mL/min (>60); Estimated Creatinine Clearance 90.65 ml/min; Glucose 259 mg/dL (74-106); Potassium 3.9 mmol/L (3.5-5.1); Sodium Level 135 mmol/L (136-145)
--- NOTE | 2020-07-30 14:40 | RAD_ITS ---
STUDY: X-RAY CHEST REASON FOR EXAM: Female, 49 years old. Shortness of breath, productive cough TECHNIQUE: PA and lateral views of the chest. COMPARISON: Comparison is made with prior study dated 07/19/2020. FINDINGS: EKG electrodes are seen. Stable imaging is rounded soft tissue mass in the peripheral lateral inferior aspect of the left hemithorax. Blunting of the left costophrenic angle. Normal size heart. Normal mediastinum and janes. Normal visualized pulmonary arteries. Normal visualized aortic arch and descending thoracic aorta. Normal visualized thoracic spine. Normal visualized ribs, clavicles, and shoulders. There is no demonstrated abnormality of the visualized soft tissue structures of the upper abdomen. RAD/Chest PA and Lateral IMPRESSION: Stable and homogeneous soft tissue mass in the peripheral lateral inferior aspect of the left hemithorax. There now is evidence of blunting of left costophrenic angle. Electronically Signed: Kaden Liang, at 15:00 EDT , Service support ,
[2020-07-30 14:42] LABS: Lactic Acid 2.9 mmol/L (0.4-1.9)
--- NOTE | 2020-07-30 14:48 | CM.ED ---
Social Work Consult: Active ED Care Plan Informant: Self Referral Met with patient and patient spouse, Serafin in room. Introduced self and social welfare clerk role. Patient agreeable to speak with this patient. Patient giving permission for this social welfare clerk to speak openly with patient spouse present. Patient states to be overwhelmed with managing patient medical needs and to feel that the [facility] is not [facility] needs. Patient states to have been waiting for over a month for pain management to contact patient. Patient states to have a insurance case manager with the VA but to not be sure of the name. Patient gave verbal and written consent for this social welfare clerk to speak with VA insurance case manager about patient case. Patient states to have seen Dr. Samuels (Substitute School Nurse with [facility]) today. Patient states goal to set up oncology through [facility] as well, but will need [facility] approval for this. Patient states to have appointment with [facility] to have biopsy completed this week to have cancer staged. Patient states main complaint/concern is being in pain. Support and active listening provided. Patient is agreeable to further social welfare clerk follow up on patient case. This social welfare clerk noting with patient that patient had not been a patient at [facility] prior to April 2020. Patient states to have moved to [place] in March 2020 and that symptoms started shortly after. Patient states to have support from spouse. Patient reports to have two adult sons. Support and active listening provided. Telephone call to [facility] social welfare clerk, Roxy [place] ([phone]). Voicemail left. Medical team updated on all above information. Reji BURROUGHS, GURU
[2020-07-30] MEDS: Morphine 4 MG/ML Syringe IV (14:52)
[2020-07-30 15:00] VITALS: BP 152/96; PULSE 93; RESP 21; O2SAT 95
[2020-07-30] MEDS: Ondansetron 4 MG/2 ML Vial IV (15:05)
[2020-07-30 16:00] VITALS: BP 137/85; PULSE 90; RESP 19; O2SAT 96
--- NOTE | 2020-07-30 16:39 | ED.RN ---
PT STATES SHE IS UPSET THAT SHE DID NOT GET FLUIDS FOR LACTIC ACIDOSIS. INFORMED DR MARINO, HE REPORTS SHE DOES NOT NEED THEM BECAUSE IT IS RELATED TO HER DIABETES. ATTEMPTED TO EXPLAIN TO PT. SHE STATES THAT'S OKAY I'LL JUST GO HOME AND COME BACK LATER TONIGHT AND SEE ANOTHER FUCKING DOCTOR THAT ACTUALLY KNOWS WHAT THE FUCK THEY ARE DOING. HE'S GIVING ME A FUCKING ANTIBIOTIC THAT I WON'T EVEN FUCKING TAKE. ATTEMPTED TO EXPLAIN LACTIC ACIDOSIS FROM SEPSIS VERSUS DIABETES, PT STATES YOU DON'T EVEN KNOW WHAT THE FUCK YOU ARE TALKING ABOUT. I KNOW HOW TO TREAT LACTIC ACIDOSIS YOU DON'T. MAYBE NEXT TIME KNOW WHAT THE FUCK YOU ARE TALKING ABOUT BEFORE YOU OPEN YOUR MOUTH AND LOOK LIKE AN IDIOT. INFORMED DR MARINO, CHARGE NURSE AND SW OF CONVERSATION.
[2020-07-30 16:45] VITALS: BP 121/85; PULSE 102; RESP 18; O2SAT 99
--- NOTE | 2020-07-30 16:52 | CM.ED ---
Social Work Telephone call from [facility], Roxy [place] (social psychologist - [phone]). Roxy states that patient had a phone conversation with pain management today, actually probably while patient was in the ED. Roxy states that pain management is recommending for patient to be referred to addiction recovery clinic with concern of patient abusing prescription pain medications. Roxy states I am not sure if patient is aware of this as the phone got cut off. Roxy states plan to continue to follow up with patient. Roxy able to provide this social psychologist with fax number for patient PCP to fax release of information and ED Care Plan. Fax number is: [phone]. This social psychologist then went back to patient room and updated patient on above information. Patient very tearful and frustrated with current situation. This social psychologist encouraging patient to follow up with biopsy on Thursday to be able to have cancer staged as that will give patient a better idea of patient prognosis. This social psychologist also encouraging patient to follow up with social work services through the [place] for support as needed. Patient states multiple frustrations with being labeled a med seeker. Patient states that the [facility] and now this hospital have raised concerns of patient being pain medication seeking. Patient states to be in pain all the time. Patient encouraged to continue to follow up with specialist and to check in with the [facility]. This social psychologist was able to have wilberto conversation with patient about multiple times that patient has been in the emergency room asking for pain medication. Patient states that the [facility] will not provide patient with pain medication. This social psychologist broaching topic of palliative care for the community as well. Patient is interested in palliative care after having a clearer picture on the stage of patient cancer. Active listening and support provided. Patient able to collect self and plans to discharge to home with spouse. Informed consent and ED Care Plan faxed to [facility]. Attn: Roxy Oliveiraor. Update medical team on above. GURU Bustamante
[2020-07-30 18:01] LABS: Reflex Lactate? Y
== END 2020-07-30 17:11 | disposition home or self-care (01) ==
PROVIDERS: Emergency Provider Emergency Medicine
DX: J20.9 Acute bronchitis, unspecified (principal); E87.2 Acidosis; F17.200 Nicotine dependence, unspecified, uncomplicated; E66.9 Obesity, unspecified; E03.9 Hypothyroidism, unspecified; E11.9 Type 2 diabetes mellitus without complications; Z79.4 Long term (current) use of insulin
CPT/HCPCS: 71046; 80048; 83605; 85025; 94640; 96374; 96375; 99285; J7050; A4216; J2405

== ENCOUNTER 2020-08-01 13:20 | Emergency (ER) | payer OTHER, SELFPAY ==
[2020-08-01 13:21] VITALS: BP 143/85; PULSE 129; RESP 20; TEMP 36.2; O2SAT 99; BMI 29.6
[2020-08-01 13:24] VITALS: BP 143/85; PULSE 128; RESP 20; O2SAT 99
[2020-08-01 14:00] LABS: Absolute Lymphocyte Count 2.16 X10^3/uL (0.83-4.51); Absolute Neutrophil Count 6.7 X10^3/uL (2.0-7.7); Basophil# 0.05 X10^3/uL; Basophil% 0.5 % (0-1); Eosinophil# 0.26 X10^3/uL; Eosinophils% 2.7 % (0-5); Hematocrit 37.2 % (37-47); Hemoglobin 11.4 g/dL (12.0-15.0); Lymphocyte # 2.16 X10^3/ul (4.0); Lymphocyte % 22.1 % (19-41); Mean Corp Hgb Conc 30.6 g/dL (32-36); Mean Corpuscular Hgb 24.3 pg (27.0-32.0); Mean Corpuscular Volume 79.3 fL (81-99); Mean Platelet Vol. 8.9 fl (6.2-12.0); Monocyte# 0.57 X10^3/uL; Monocyte% 5.8 % (0-10); NRBC Flagged by Analyzer 0 % (0-5); Neutrophil # 6.69 X10^3/uL (2.7-7.7); Neutrophil % 68.5 % (47-70); Platelet Count 273 K/mm3 (150-450); RBC Distribution Width CV 13.4 % (11.6-14.6); RBC Distribution Width SD 38.4 fl (35.1-43.9); Red Blood Count 4.69 M/mm3 (4.2-5.4); White Blood Count 9.8 K/mm3 (4.4-11.0)
[2020-08-01] MEDS: Ondansetron 4 MG/2 ML Vial IV (14:10)
[2020-08-01] MEDS: 0.9% Normal Saline 1,000 ML 1000 ML IV (14:11)
--- NOTE | 2020-08-01 14:35 | CM.ED ---
SOCIAL WORK Informant: NurseCaitlyn Reason for Consult: Active ED Care Plan Met with patient in room to follow up on patient's phone call yesterday to inquire about Palliative Services. Patient upset upon this worker entering room with nurseCaitlyn. Patient stating, [facility]. Patient reporting, no one gives a shit about me. I'm in pain, I have cancer. Discussed ED Care Plan and SW's efforts to assist with care and resources. Informed patient that pain medication will not be given unless there is acute and verifiable pain. Patient states [place] pain management has not spoken with her about lung pain only spine pain. Patient stating no one is doing anything. Patient and report at this time there is nothing set up with oncology and cancer still remains unstaged. Patient gave verbal permission for this worker to follow up again with the [facility]. Upon leaving room patient requesting unhook me. Patient leaving the ER at this time. Dr. Lindquist and nurseCaitlyn updated. Call to LISA Cooley at [facility]. Left message with this worker's call back information. Abhinav Abdi, HOME VISITOR HOME BASE [employer] START, EARLY CHILDHOOD TEACHER ASSISTANT
--- NOTE | 2020-08-01 14:38 | ED.DCSUM_ITS ---
- ER Visit Summary Date of Service: 08/01/20 Chief Complaint: Vomiting/diarrhea History of Present Illness: The patient is a 49 F who goes to the [facility]. She reports that she has had diarrhea 3-4 times a day for the past 8 weeks. No blood in her stools or black tarry stools. She reports she came nauseated with vomiting yesterday. She is vomited 5 times. No blood or coffee-ground emesis. She reports she has cramping epigastric pain that is 8 out of 10 at worst and 3- 10 currently. Is worsened by vomiting or laying on her left side. Nothing makes this better. She denies any dysuria or frequency. Patient denies sick contacts. Has not been camping out of the country. No possible bad food exposure. Does not drink well water. Has been on multiple antibiotics recently for a necrotizing pneumonia. Patient reports that she saw a thoracic surgeon at the [facility] yesterday who is not going to do an open biopsy of the masses on her lungs. She reports that they are just going to start treatment. She reports she is had 2 fine-needle biopsies at this point. One was at the beginning of June and one was 2 weeks ago. States that they do not get enough of a sample to figure out what this is. However, she reports that they think it is small cell lung cancer. She reports she had a colonoscopy 2 years ago and a mammogram in 2012 that were negative. Patient reports that she has pain to the left of her chest ever since this began. It is 8 out of 10 in severity currently and 10 out of 10 at worst. She had a 55 pound weight loss over the past 10 months. She reports that she was referred to pain management at the [facility] and has not seen them yet. She has seen pain management there for her neck. Physical Examination: Vitals: 97.2, 143/85, 128, 20, 90% room air which is not hypoxic. General: Well-nourished and well-developed. Head: Normocephalic atraumatic. Neck: Supple, no lymphadenopathy. No JVD. Nontender. Cardiovascular: Tachycardic regular rhythm. No murmurs. Respiratory: No respiratory distress. Clear to auscultation bilaterally. Abdominal: Soft, mild epigastric tenderness to palpation, nondistended, normal bowel sounds. No guarding, rebound, or peritoneal signs. Back: Nontender. Extremities: Nontender, no edema. Skin: Normal color, no rash. Neurologic: Alert and oriented ?3. Cranial nerves II through XII are intact. Normal strength and sensation. Psych: Normal affect. Test Results: CBC shows a hemoglobin 11.4. Chem-7 shows a glucose of 470. Sodium is normal when corrected for this glucose. LFTs show an alk phos of 141, ALB of 3.0, globulin 5.1. Lipase is 63. Emergency Department Course and Treatment: Patient had an IV placed. She was given a liter normal saline. She was given Zofran for her nausea. She is not been able to produce a stool sample while here. She was seen by case management as she is asking for pain medications and has a care plan. Patient became upset and left shortly thereafter. CMP had not returned at the time she walked out. Treatment Plan: Left prior to completion of treatment. Disposition: Left prior to completion of treatment Impression: 1. Vomiting/diarrhea. 2. ED care plan. 3. Left prior to completion of treatment. This note was generated with Presentain dictation software. It may contain incorrect words, spelling, and punctuation that were not noted in review of the chart prior to signing ED Disposition - Plan for ED Patient: Disposition: Home or Assisted Living [facility] [Primary Care Provider[facility] -
--- NOTE | 2020-08-01 14:55 | ED.RN ---
this rn in room with amy from case management to discuss care plan with pt. pt denies to me that care plan exists but states members on the team. pt becomes angry. yelling about care at this facility. pt removes iv and leaves department
[2020-08-01 14:58] LABS: ALB/GLOB Ratio 0.6 RATIO (0.9-2.4); AST(SGOT) 31 U/L (15-37); Alanine Aminotransfer ALT/SGPT 17 U/L (13-56); Alkaline Phosphatase 141 U/L (45-117); Anion Gap 5 (5-15); BUN 10 mg/dL (7-18); BUN/Creat Ratio 12.3 RATIO (10-20); Calcium,Total 8.9 mg/dL (8.5-10.1); Chloride 100 mmol/L (98-107); Creatinine, Serum 0.81 mg/dL (0.55-1.02); EST Glomerular Filtration Rate 79 mL/min (>60); Est Glom Filt Rate - Afr Amer 96 mL/min (>60); Globulin 5.1 g/dL (2.2-4.2); Glucose 470 mg/dL (74-106); Lipase 63 U/L (73-393); Potassium 4.4 mmol/L (3.5-5.1); Protein, Total 8.1 g/dL (6.4-8.2); Sodium Level 134 mmol/L (136-145)
--- NOTE | 2020-08-01 16:45 | CM.ED ---
SOCIAL WORK Received call back from LISA Betancourt with the [facility]. Per Asia, Roxy left for the day and is able to answer any questions. Asia reports reviewed chart and patient has had many tests. Asia reports patient has symptoms with no clear diagnosis and that a BX with no malignant cells noted on 07/20/2020. Asia states [place] SW's and nurses can provide follow up and education for patient. Asia provided this worker with [facility] Nurse, Rona Santoyo's contact information for any further medical questions [phone]. Abhinav Abdi, FINANCIAL AID ADMINISTRATOR, TALENT ACQUISITION CONSULTANT
--- NOTE | 2020-08-02 15:33 | CM.ED ---
Social Work Telephone call from patient N.P (Nicole Bucio - P: [phone]). Nicole reporting to have obtained release of information. Nicole informing this healthcare social worker that patient is not confirmed to have a cancer diagnosis and most likely patient does not have cancer. Nicole states that patient has been diagnosed with a Personality Disorder and there is concern of patient abusing prescription pain medication. Nicole states to have received ED Care Plan. Nicole states that patient has multiple providers involved in patient case, including pain management and mental health resources. Nicole confirming that patient has been referred to [facility] ([place] [facility]). Nicole states to be continuing to follow up with patient on medical care and needs and is confirming that patient does have medical conditions, but have not formally been diagnosed with cancer currently. Nicole requesting updates as possible. Nicole aware that patient will need to continue to sign a release of information. Patient with active ED Care Plan. Social Work to continue to follow for support/collaboration on resources. Reji Romero MSW, GURU
== END 2020-08-01 15:00 | disposition home or self-care (01) ==
LOC: ED 14:00
PROVIDERS: Emergency Provider Emergency Medicine
DX: R11.10 Vomiting, unspecified (principal); R19.7 Diarrhea, unspecified; F17.200 Nicotine dependence, unspecified, uncomplicated; Z53.29 Procedure and treatment not carried out because of patient's decision for other reasons
CPT/HCPCS: 80053; 83690; 85025; 96374; 99282; J7030; J2405

== ENCOUNTER 2020-11-05 22:30 | Emergency (ER) | payer OTHER, SELFPAY ==
[2020-10-22 14:21] VITALS: BMI 31.6
[2020-11-05 22:31] VITALS: BP 161/94; PULSE 133; RESP 16; TEMP 36.2; O2SAT 100; BMI 29.0
--- NOTE | 2020-11-05 22:57 | ED.DCSUM_ITS ---
History of Present Illness Chief Complaint: Other, Pain/Inj Informant: Patient Narrative: 50-year-old female with extensive past medical history including Pastora's granulomatosis, lung cancer presents with concern for diarrhea. States is been present over the past 3 days. States that she is having it approximately 1 time every hour. States it is watery in nature. States that she is having pain in her mouth and legs which she feels is secondary to her chronic vasculitis. Denies any fever, chills, cough, chest pain, shortness of breath, urinary symptoms, vaginal bleeding or discharge. States that she is slightly dizzy. States is mainly when she is standing from a seated position. Denies any headache, vision change, neck pain. Past Medical History - Allergies and Home Meds Allergies/Adverse Reactions: Allergies NSAIDS (Non-Steroidal Anti-Inflamma Allergy (Verified 10/22/20 14:29) Swelling ketorolac [From Toradol] Adverse Reaction (Verified 10/22/20 14:29) headache prednisone Adverse Reaction (Verified 10/22/20 14:29) PT UNSURE OF REACTION Severely elevated blood sugars (this was not a reaction option to choose) tramadol Adverse Reaction (Verified 10/22/20 14:29) headache Primary Care Physician: [facility] [Primary Care Provider] - Prior records reviewed: Yes Past Medical History: - - Lung cancer, Wegeners granulomatosis Surgical History: hysterectomy, - - Fusion and disc replacement C5-6 and C6-7 Smoking Status: Current every day smoker - Family History Maternal Family History: Family History (Last Reviewed 10/22/20 @ 14:22 by Thais Hassan) Grandfather COPD (chronic obstructive pulmonary disease) Family History: Reports: - - Thyroidism Paternal Family History: Family History (Last Reviewed 10/22/20 @ 14:22 by Thais Hassan) Grandfather COPD (chronic obstructive pulmonary disease) Family History: Reports: Hypertension Review of Systems General: Denies: Chills, Fever, Sweats Eyes: Denies: Visual changes - bilaterally, Diplopia ENT: Denies: Rhinorrhea, Sore throat Cardiovascular: Denies: Chest pain, Palpitations Respiratory: Denies: Dyspnea, Cough, Dyspnea on exertion Gastrointestinal: Reports: Diarrhea. Denies: Abdominal pain, Nausea, Vomiting, Melena, Hematochezia Genitourinary: Denies: Dysuria, Hematuria, Frequency Musculoskeletal: Reports: Myalgias. Denies: Back pain, Extremity Pain Skin: Denies: Rash, Wounds Neurological: Denies: Headache, Weakness, Numbness Physical Exam Vital Signs/Narrative: Vital Signs Temp Pulse Resp BP Pulse Ox 11/05/20 22:31 97.2 F L 133 H 16 161/94 H 100 Inital Vital Signs reviewed: Yes General: Well nourished, Well developed, No Acute Distress Head: Normocephalic, Atraumatic Eyes: Perrl, EOMI ENT: Moist mucous membranes, No rhinorrhea Neck: Supple, Nontender Cardiovascular: Regular rate, Regular rhythm, No murmurs Respiratory: No distress, CTA bilaterally, Chest nontender Abdomen: Soft, Nontender, Nondistended, Normal bowel sounds Back: Nontender, Normal Inspection Extremities: Nontender, No edema Skin: Normal color, No rash Neurological: Alert, Oriented x3, Cranial nerves II-XII grossly intact, Normal Strength, Normal Sensation Psychological: Normal affect, Normal Mood Diagnostic/Tx/Re-eval Laboratory Data 11/05/20 11/05/20 11/05/20 23:10 23:10 23:36 WBC 13.7 H RBC 5.49 H Hgb 12.6 Hct 42.2 MCV 76.9 L MCH 23.0 L MCHC 29.9 L RDW Std Deviation 54.6 H RDW Coeff of Tere 20.5 H Plt Count 209 MPV 9.3 Immature Gran % (Auto) 0.800 Neut % (Auto) 75.3 H Lymph % (Auto) 17.6 L [place] % (Auto) 5.8 Eos % (Auto) 0.1 Baso % (Auto) 0.4 Absolute Neuts (auto) 10.3 H Absolute Lymphs (auto) 2.41 Nucleated RBC % 0 Sodium 140 Potassium 3.7 Chloride 101 Carbon Dioxide 27.0 Anion Gap 12 BUN 7 Creatinine 0.93 Estim Creat Clear Calc 70.38 Est GFR (MDRD) Af Amer 82 Est GFR (MDRD) Non-Af 68 BUN/Creatinine Ratio 7.5 L Glucose 230 H Calcium 9.4 Total Bilirubin 0.40 AST 48 H ALT 51 Alkaline Phosphatase 154 H Total Protein 7.6 Albumin 3.3 Globulin 4.3 H Albumin/Globulin Ratio 0.8 L Lipase 69 L Urine Color Yellow Urine Clarity Clear Urine pH 7.0 Ur Specific [place] 1.010 Urine Protein Negative Urine Glucose (UA) 1000 H Urine Ketones Negative Urine Occult Blood Negative Urine Nitrite Negative Urine Bilirubin Negative Urine Urobilinogen Normal Ur Leukocyte Esterase 100 H Urine RBC 0 SEEN Urine WBC 10-25 SEEN Ur Squamous Epith Cells 0-5 SEEN Urine Bacteria 0 SEEN Urine Mucus 0 SEEN - Medical Decision Making Appears well nontoxic. Initial triage vital signs show tachycardia at 130. On my initial exam patient's heart rate is approximately 90. On reexamination at 0019 her heart rate is approximately 80. Unclear if this resolves tachycardia. Patient was given 1 L of normal saline. Lab work shows a nonspecific leukocytosis possibly secondary to the patient's gastroenteritis. Patient is on chronic Augmentin. Patient has had no bouts of diarrhea in the emergency department. Fairly low concern for C. difficile. I did advise her to follow-up with her primary care if she has continued diarrhea for C. difficile testing. Patient requesting pain medication for her mouth. States that they have given her oxycodone before in the past. I did advise her to follow-up with her pain management physician and given her care plan we cannot provide her with narcotics. Patient agreeable with this plan was discharged home in stable condition. Impression: 1. Diarrhea 2. Mouth pain ED Disposition - Plan for ED Patient: Disposition: Home or Assisted Living Instructions: ED Diarrhea, Unknown Cause Referrals: [place] [Primary Care Provider] - 2 Days
[2020-11-05] MEDS: 0.9% Normal Saline 1,000 ML 1000 ML IV (23:08)
[2020-11-05 23:40] LABS: ALB/GLOB Ratio 0.8 RATIO (0.9-2.4); AST(SGOT) 48 U/L (15-37); Alanine Aminotransfer ALT/SGPT 51 U/L (13-56); Albumin, Serum 3.3 g/dL (3.2-5.0); Alkaline Phosphatase 154 U/L (45-117); Anion Gap 12 (5-15); BUN 7 mg/dL (7-18); BUN/Creat Ratio 7.5 RATIO (10-20); Calcium,Total 9.4 mg/dL (8.5-10.1); Chloride 101 mmol/L (98-107); Creatinine, Serum 0.93 mg/dL (0.55-1.02); EST Glomerular Filtration Rate 68 mL/min (>60); Est Glom Filt Rate - Afr Amer 82 mL/min (>60); Estimated Creatinine Clearance 70.38 ml/min; Globulin 4.3 g/dL (2.2-4.2); Glucose 230 mg/dL (74-106); Lipase 69 U/L (73-393); Potassium 3.7 mmol/L (3.5-5.1); Protein, Total 7.6 g/dL (6.4-8.2); Sodium Level 140 mmol/L (136-145)
[2020-11-05 23:42] LABS: Bacteria 0 SEEN /hpf (None Seen); Mucous, Urine 0 SEEN /hpf (<or=2+); Red Blood Cells-Urine 0 SEEN /hpf (0-5)
[2020-11-05 23:50] LABS: Absolute Lymphocyte Count 2.41 X10^3/uL (0.83-4.51); Absolute Neutrophil Count 10.3 X10^3/uL (2.0-7.7); Basophil# 0.05 X10^3/uL; Basophil% 0.4 % (0-1); Eosinophil# 0.02 X10^3/uL; Eosinophils% 0.1 % (0-5); Hematocrit 42.2 % (37-47); Hemoglobin 12.6 g/dL (12.0-15.0); Lymphocyte # 2.41 X10^3/ul (4.0); Lymphocyte % 17.6 % (19-41); Mean Corp Hgb Conc 29.9 g/dL (32-36); Mean Corpuscular Volume 76.9 fL (81-99); Mean Platelet Vol. 9.3 fl (6.2-12.0); Monocyte# 0.79 X10^3/uL; Monocyte% 5.8 % (0-10); NRBC Flagged by Analyzer 0 % (0-5); Neutrophil # 10.32 X10^3/uL (2.7-7.7); Neutrophil % 75.3 % (47-70); POSITIVE MORPHOLOGY YES; Platelet Count 209 K/mm3 (150-450); RBC Distribution Width CV 20.5 % (11.6-14.6); RBC Distribution Width SD 54.6 fl (35.1-43.9); Red Blood Count 5.49 M/mm3 (4.2-5.4); White Blood Count 13.7 K/mm3 (4.4-11.0)
[2020-11-05 23:50] LABS: Color, Urine Yellow (Yellow); Glucose, Dipstick 1000 mg/dl (Normal); Ketone-Dipstick Negative (Negative); Leukocyte Esterase-Dipstick 100 /ul (Negative); Nitrite-Dipstick Negative (Negative); Occult Blood-Urine Negative /ul (Negative); Protein-Dipstick Negative (Negative); Urine Bilirubin Dipstick Negative (Negative); Urine Clarity Clear (Clear); Urine Urobilinogen Normal (Normal)
[2020-11-05 23:52] LABS: Differential Indicated SCAN CRITERIA MET
[2020-11-05 23:56] LABS: Squamous Epithelial Cells - UA 0-5 SEEN /hpf (5-10); White Blood Cells 10-25 SEEN /hpf (0-5)
[2020-11-06 00:27] LABS: Differential Comment SCANNED; Macrocytosis 1+; Microcytosis 2+
[2020-11-06 00:37] VITALS: RESP 16
== END 2020-11-06 00:38 | disposition home or self-care (01) ==
PROVIDERS: Emergency Provider Emergency Medicine
DX: R19.7 Diarrhea, unspecified (principal); F17.200 Nicotine dependence, unspecified, uncomplicated; Z85.118 Personal history of other malignant neoplasm of bronchus and lung
CPT/HCPCS: 80053; 81001; 83690; 85025; 99283; J7030; A4216

== ENCOUNTER → 2021-03-07 16:10 | Outpatient (CLI) | payer OTHER, SELFPAY ==
[2021-03-07 17:32] LABS: Absolute Lymphocyte Count 3.46 X10^3/uL (0.83-4.51); Absolute Neutrophil Count 8.7 X10^3/uL (2.0-7.7); Basophil# 0.11 X10^3/uL; Basophil% 0.8 % (0-1); Eosinophil# 0.31 X10^3/uL; Eosinophils% 2.2 % (0-5); Hematocrit 40.4 % (37-47); Lymphocyte # 3.46 X10^3/ul (4.0); Lymphocyte % 24.9 % (19-41); Mean Corp Hgb Conc 32.2 g/dL (32-36); Mean Corpuscular Hgb 26.8 pg (27.0-32.0); Mean Corpuscular Volume 83.3 fL (81-99); Mean Platelet Vol. 9.6 fl (6.2-12.0); Monocyte# 1.21 X10^3/uL; Monocyte% 8.7 % (0-10); NRBC Flagged by Analyzer 0 % (0-5); Neutrophil # 8.68 X10^3/uL (2.7-7.7); Neutrophil % 62.5 % (47-70); POSITIVE MORPHOLOGY YES; Platelet Count 259 K/mm3 (150-450); RBC Distribution Width CV 20.8 % (11.6-14.6); RBC Distribution Width SD 59.2 fl (35.1-43.9); Red Blood Count 4.85 M/mm3 (4.2-5.4); White Blood Count 13.9 K/mm3 (4.4-11.0)
[2021-03-07 17:34] LABS: Color, Urine Yellow (Yellow); Differential Indicated SCAN CRITERIA MET; Glucose, Dipstick 1000 mg/dl (Normal); Ketone-Dipstick Negative (Negative); Leukocyte Esterase-Dipstick 500 /ul (Negative); Nitrite-Dipstick Negative (Negative); Occult Blood-Urine Negative /ul (Negative); Protein-Dipstick 15 mg/dl (Negative); Specific Gravity, Urine 1.015 (1.002-1.030); Urine Bilirubin Dipstick Negative (Negative); Urine Clarity Clear (Clear); Urine Urobilinogen Normal (Normal)
[2021-03-07 17:40] LABS: Protein, Urine (Random) 22.7 mg/dL (<11.9); Protein:Creat Ratio 132 mg/g CRE (0-200)
[2021-03-07 17:58] LABS: Erythrocyte Sedimentation Rate 46 mm/hr (0-30)
[2021-03-07 18:28] LABS: ALB/GLOB Ratio 0.8 RATIO (0.9-2.4); AST(SGOT) 64 U/L (15-37); Alanine Aminotransfer ALT/SGPT 33 U/L (13-56); Albumin, Serum 3.5 g/dL (3.2-5.0); Alkaline Phosphatase 151 U/L (45-117); Anion Gap 6 (5-15); BUN 6 mg/dL (7-18); BUN/Creat Ratio 6.8 RATIO (10-20); Chloride 100 mmol/L (98-107); Creatinine, Serum 0.88 mg/dL (0.55-1.02); EST Glomerular Filtration Rate 72 mL/min (>60); Est Glom Filt Rate - Afr Amer 88 mL/min (>60); Globulin 4.2 g/dL (2.2-4.2); Glucose 200 mg/dL (74-106); Potassium 3.7 mmol/L (3.5-5.1); Protein, Total 7.7 g/dL (6.4-8.2); Rheumatoid Factor < 10.0 IU/mL (<15); Sodium Level 134 mmol/L (136-145)
[2021-03-08 10:34] LABS: Hepatitis B Surface Antibody Non-Reactive; Hepatitis B Surface Antigen Non-Reactive (Nonreactive); Hepatitis C Antibody Non-Reactive (Nonreactive)
[2021-03-11 21:08] LABS: ANTINUCLEAR ANTIBODIES DIRECT Negative (Negative)
[2021-03-13 04:06] LABS: QNTFERON TB Mitogen Value > 10.00 IU/mL (.); QNTFERON TB Nil Value 0.06 IU/mL (.); QNTFERON TB1+ Ag Value 0.54 IU/mL (.); QNTFERON TB2+ Ag Value 0.06 IU/mL (.)
[2021-03-13 11:38] LABS: CCP IgG Antibodies 14 units (0-19); QNTIFERON TB Positive Criteria Positive (Negative)
== END ==
PROVIDERS: Referring Provider Internal Medicine Rheumatology; Visit Provider Internal Medicine Rheumatology
DX: M06.4 Inflammatory polyarthropathy (principal); M31.30 Wegener's granulomatosis without renal involvement; M79.7 Fibromyalgia; G40.909 Epilepsy, unspecified, not intractable, without status epilepticus; E10.9 Type 1 diabetes mellitus without complications; K21.9 Gastro-esophageal reflux disease without esophagitis; E03.9 Hypothyroidism, unspecified; G62.9 Polyneuropathy, unspecified
CPT/HCPCS: 36415; 80053; 81002; 82570; 84156; 85025; 85652; 86038; 86140; 86200; 86431; 86480; 86706; 86803; 87340

== ENCOUNTER → 2021-05-07 18:00 | Outpatient (CLI) | payer OTHER, SELFPAY ==
[2021-04-10 05:55] VITALS: BMI 33.2
--- NOTE | 2021-05-07 18:05 | CT_ITS ---
STUDY: CT CHEST WITHOUT CONTRAST REASON FOR EXAM: Female, 50 years old. h/o Wegeners with Pulmonary involvement RADIATION DOSAGE (If Supplied By Facility): CTDIvol = ( 18.23 ) mGy, DLP = ( 715.23 ) mGycm TECHNIQUE: Transaxial imaging was performed without the administration of intravenous contrast material. Individualized dose optimization techniques were used for this CT. COMPARISON: 07/24/2020 FINDINGS: Right lower lobe linear scar. No nodularity or other evidence of interstitial lung disease. Azygos lobe which is a normal variant. Normal heart and pericardium. There are calcifications of the coronary arteries. Normal mediastinum. Normal hilar regions. Normal unenhanced pulmonary arteries. Normal aorta arch and descending thoracic aorta. Status post anterior cervical discectomy and fusion lower cervical spine. Diffusely decreased attenuation of the hepatic parenchyma consistent with fatty infiltration. CT/Chest without Contrast IMPRESSION: Right lower lobe scar but no CT evidence of nodularity or interstitial lung disease. Electronically Signed: Peewee Richards MD at 10:49 EDT Tel , Service support ,
== END ==
PROVIDERS: Referring Provider Internal Medicine Critical Care Medicine; Visit Provider Internal Medicine Critical Care Medicine
DX: M31.30 Wegener's granulomatosis without renal involvement (principal)
CPT/HCPCS: 71250

== ENCOUNTER 2021-08-08 18:54 | Inpatient (IN) | payer OTHER, SELFPAY ==
[2021-08-08] VITALS (14 sets, daily range): BP systolic 78–100; BP diastolic 48–59; PULSE 90–100; RESP 15–17; TEMP 36.4–36.5; O2SAT 81–100; BMI 32.8
--- NOTE | 2021-08-08 19:44 | EKG12_ITS ---
Test Reason : SOB Blood Pressure : / mmHG Vent. Rate : 089 BPM Atrial Rate : 089 BPM P-R Int : 144 ms QRS Dur : 076 ms QT Int : 366 ms P-R-T Axes : 033 032 039 degrees QTc Int : 445 ms Normal sinus rhythm Low voltage QRS Borderline ECG Confirmed by FLORA SHEIKH, ALBA ([id number]), subeditor YVONNE CLARK ([id number]) on 08/12/2021 11:43:19 AM Referred By: [facility] Confirmed By:ALBA HINES MD
[2021-08-08 20:04] LABS: Absolute Lymphocyte Count 2.59 X10^3/uL (0.83-4.51); Absolute Neutrophil Count 6.4 X10^3/uL (2.0-7.7); Basophil# 0.06 X10^3/uL; Basophil% 0.6 % (0-1); Eosinophil# 0.26 X10^3/uL; Eosinophils% 2.4 % (0-5); Hematocrit 42.6 % (37-47); Lymphocyte # 2.59 X10^3/ul (0.83-4.51); Lymphocyte % 24.1 % (19-41); Mean Corp Hgb Conc 32.9 g/dL (32-36); Mean Corpuscular Hgb 29.2 pg (27.0-32.0); Mean Corpuscular Volume 88.8 fL (81-99); Mean Platelet Vol. 9.9 fl (6.2-12.0); Monocyte# 1.36 X10^3/uL; Monocyte% 12.7 % (0-10); NRBC Flagged by Analyzer 0 % (0-5); Neutrophil % 59.5 % (47-70); Platelet Count 154 K/mm3 (150-450); RBC Distribution Width CV 13.3 % (11.6-14.6); RBC Distribution Width SD 43.7 fl (35.1-43.9); White Blood Count 10.8 K/mm3 (4.4-11.0)
[2021-08-08 20:15] LABS: D-Dimer Quantitative (DVT/PE) 0.66 FEU/ug/m (0.27-0.49)
[2021-08-08 20:18] LABS: ALB/GLOB Ratio 0.5 RATIO (0.9-2.4); AST(SGOT) 83 U/L (15-37); Alanine Aminotransfer ALT/SGPT 25 U/L (13-56); Albumin, Serum 2.8 g/dL (3.2-5.0); Alkaline Phosphatase 130 U/L (45-117); Anion Gap 8 (5-15); BUN 7 mg/dL (7-18); Calcium,Total 8.3 mg/dL (8.5-10.1); Chloride 93 mmol/L (98-107); Creatinine, Serum 1.39 mg/dL (0.55-1.02); EST Glomerular Filtration Rate 43 mL/min (>60); Est Glom Filt Rate - Afr Amer 52 mL/min (>60); Estimated Creatinine Clearance 47.09 ml/min; Globulin 5.1 g/dL (2.2-4.2); Glucose 314 mg/dL (74-106); Potassium 2.8 mmol/L (3.5-5.1); Protein, Total 7.9 g/dL (6.4-8.2); Sodium Level 131 mmol/L (136-145)
--- NOTE | 2021-08-08 20:29 | CT_ITS ---
EXAM: CT Angiography Chest Without and With Intravenous Contrast CLINICAL INDICATION: 50 years old, Female; sob TECHNIQUE: Helically acquired angiography images were obtained of the chest without and with intravenous contrast. This CT exam was performed using one or more of the following dose reduction techniques: automated exposure control, adjustment of the mA and/or kV according to patient size, and/or use of iterative reconstruction technique. This report was created using Jeeves report generation technology. MIP reconstructed images were created and reviewed. CONTRAST: IV 100mL [id number] COMPARISON: CT chest dated 05/07/2021. FINDINGS: Pulmonary arteries: Unremarkable. Normal in caliber. No pulmonary embolism. Aorta: Unremarkable. Normal in caliber. No evidence of dissection. Great vessels of aortic arch: Unremarkable. Normal in caliber. No evidence of dissection. Lungs and pleural spaces: Consolidative infiltrates in the lower lungs worrisome for pneumonia. Azygos fissure. No mass. No pleural effusion or thickening. Heart: Unremarkable. Heart size is normal. No pericardial effusion. No signs of right heart strain, ratio of right ventricle to left ventricle measures less than 1. Mediastinum: Unremarkable. No mediastinal or hilar adenopathy. Esophagus is unremarkable. No hiatal hernia. Thyroid: Unremarkable. No thyroid lesions. Bones/joints: Unremarkable. No suspicious lytic or blastic abnormality. CT/CTA Chest W/WO Contrast IMPRESSION: 1. No pulmonary embolism. 2. Consolidative infiltrates in the lower lungs worrisome for pneumonia. ASSESSMENT: ABNORMAL report - There are abnormal findings in this report which may be related or unrelated to the reason for the exam. Electronically Signed: Cornelio Villanueva MD at 21:39 EDT Tel , Service support ,
--- NOTE | 2021-08-08 20:49 | RAD_ITS ---
STUDY: X-RAY CHEST REASON FOR EXAM: Female, 50 years old. Cough. TECHNIQUE: Single AP portable view of the chest. COMPARISON: 07/30/2020. FINDINGS: Limited inspiratory effort. There is bibasilar atelectasis versus infiltrate. There is no demonstrated pleural abnormality. Normal size heart. Normal mediastinum and janes. Normal visualized pulmonary arteries. Normal visualized aortic arch and descending thoracic aorta. The thoracic spine is obscured by the mediastinum. Normal visualized ribs, clavicles, and shoulders. There is no demonstrated abnormality of the visualized soft tissue structures of the upper abdomen. RAD/Chest 1 View (Portable) IMPRESSION: Stranding at both bases thought to represent early infiltrate. Atelectasis is also considered in this limited inspiratory study. Electronically Signed: Ajit Miller DO at 21:32 EDT Tel [phone], Service support ,
[2021-08-08 21:00] LABS: Procalcitonin 0.23 ng/mL (0.00-0.09)
[2021-08-08 21:13] LABS: Lactic Acid 2.3 mmol/L (0.4-1.9)
[2021-08-08] MEDS: Potassium Chloride 10mEq/100mL 10 MEQ/100 ML IV.SOLN. 100 MEQ IV BOLUS ×2 (21:29→22:30)
--- NOTE | 2021-08-08 21:49 | NURSING ---
[facility] AND [facility] ALLEGRA. GAVE HIM ALL THE PT'S INFO AND HE SAID HE WILL GIVE IT TO THE PATIENT COORDINATOR AND WE WILL RECEIVE A CALL EVENTUALLY.
--- NOTE | 2021-08-08 21:51 | EX.ED.DYSGE1 ---
HPI History of Present Illness Chief Complaint: Shortness of Breath Informant: patient Onset/Context/Timing Onset: Days (5 days) Context: Gradual Onset Current Severity: Moderate Maximum Severity: Moderate Narrative Narrative: Patient presents via EMS secondary to increasing shortness of breath and confusion. Patient reports having symptoms for the past 5 days. She reports cough with sputum production and increased shortness of breath. She states her is been checking her temperature but she is not sure if she is had fever. There is one family member at home that is positive for Covid. She reports poor p.o. intake. Per nursing report patient's O2 sat was in the 80s for EMS and blood pressure in the 80s. [facility] Medical History (Updated 08/08/21 @ 22:[address] Kelly Saenz MD) Cervical radicular pain Chest pain Dehydration Diabetes Elevated lactic acid level History of type 1 diabetes mellitus Hyperglycemia Hypothyroidism Lung abscess Seizures Septic shock Steroid-induced hyperglycemia Wegeners granulomatosis Home Medications levothyroxine 200 mcg PO DAILY 05/10/20 [History Last Taken 06/19/20] levetiracetam 1,000 mg PO BID 06/15/20 [History Last Taken 06/19/20] insulin glargine 45 units SC QHS 07/14/20 [History Last Taken Unknown] insulin lispro 14 unit SC TIDCM 07/14/20 [History Last Taken Unknown] albuterol sulfate 90 mcg/actuation aerosol inhaler 2 puff INHALATION Q4H PRN #18 g 07/30/20 [Rx Last Taken Unknown] cholecalciferol (vitamin D3) 1,250 mcg (50,000 unit) capsule 1,250 mcg PO QWEEK 07/30/20 [History Last Taken Unknown] gabapentin 600 mg tablet 1,200 mg PO DAILY tab 07/30/20 [History Last Taken Unknown] gabapentin 600 mg tablet 600 mg PO QHS 07/30/20 [History Last Taken Unknown] ferrous sulfate 325 mg (65 mg iron) tablet,delayed release 325 mg PO DAILY 10/22/20 [History Last Taken Unknown] sulfamethoxazole 400 mg-trimethoprim 80 mg tablet 1 tab PO DAILY 10/22/20 [History Last Taken Unknown] Allergy/AdvReac Type Severity Reaction Status Date / Time NSAIDS (Non-Steroidal Allergy Swelling Verified 08/08/21 19:00 Anti-Inflamma ketorolac [From Toradol] AdvReac headache Verified 08/08/21 19:00 prednisone AdvReac PT UNSURE Verified 08/08/21 19:00 OF REACTION tramadol AdvReac headache Verified 08/08/21 19:00 Family History Grandfather COPD (chronic obstructive pulmonary disease) Surgical History H/O: hysterectomy Social History Smoking Status: Current every day smoker tobacco type: cigarettes Tobacco: How many years used: 7 ROS ROS ED Constitutional Constitutional ED: Reports chills, fever(s) and subjective Eyes Eyes: Denies change in vision ENT ENT ED: Denies sore throat Cardiovascular Cardiovascular: Denies chest pain Respiratory/Chest Respiratory/Chest: Reports cough, dyspnea and sputum Gastrointestinal Gastrointestinal: Reports nausea; Denies abdominal pain or vomiting Musculoskeletal Musculoskeletal: Reports myalgias Integumentary Denies rash Neurologic Neurologic: Reports headache(s) and weakness; Denies paresthesias Endocrine Endocrinology: Denies polydipsia or polyuria Allergic/Immunologic Allergic/Immunologic ED: Denies urticaria EXAM Physical Exam Narrative Exam Narrative: Patient resting with eyes closed but answers all questions appropriately. Const Vital Signs: 08/08/21 18:55 08/08/21 18:58 08/08/21 19:44 Temperature 97.6 F L 97.6 F L Temperature Source Oral Oral Pulse Rate 100 100 Respiratory Rate 17 17 Respiratory Effort Normal Non-Labored Respiratory Depth Normal Respiratory Pattern Normal Blood Pressure 82/50 L 82/50 L Blood Pressure Mean 60 60 Pulse Ox 100 100 81 Oxygen Delivery Method Room Air Room Air Room Air Oxygen Flow Rate (L/min) 08/08/21 19:50 08/08/21 19:58 08/08/21 20:00 Temperature 97.6 F L 97.6 F L Temperature Source Temporal Temporal Pulse Rate 90 90 Respiratory Rate 17 17 Respiratory Effort Respiratory Depth Respiratory Pattern Blood Pressure 100/59 L 100/59 L Blood Pressure Mean 72 72 Pulse Ox 100 95 94 Oxygen Delivery Method Non-Rebreather Nasal Cannula Nasal Cannula Oxygen Flow Rate (L/min) 15 3 3 08/08/21 20:29 08/08/21 21:00 Temperature 97.6 F L Temperature Source Temporal Pulse Rate 93 Respiratory Rate 15 Respiratory Effort Respiratory Depth Respiratory Pattern Blood Pressure 86/59 L Blood Pressure Mean 68 Pulse Ox 94 95 Oxygen Delivery Method Nasal Cannula Nasal Cannula Oxygen Flow Rate (L/min) 3 3 Positive well nourished and well developed General Appearance ED: well developed HEENT Reports normocephalic and head/scalp atraumatic Eyes PERRL and EOMs intact bilaterally Neck supple Chest Wall inspection of chest normal and palpation of chest normal Resp normal respiratory effort Auscultation: diminished lung sounds Cardio regular rate and regular rhythm GI non-tender Auscultation: hypoactive bowel sounds Palpation: soft Extremity Extremity Narrative: Abrasions to the bilateral lower extremities with erythema and warmth. No drainage. Neuro oriented x3 Neuro Narrative: Generalized weakness but no focal deficits. Sensorium / Orientation: alert Psych mental status grossly normal MDM MDM MDM Narrative Medical decision making narrative: Patient was given a 500 cc IV fluid bolus. She was initially on nonrebreather at the time of my examination and this has been weaned down to 3 L nasal cannula. Lab work, EKG, chest x-ray, labs obtained. Covid swab ordered. Lab Data Attestation: I reviewed the patient's lab results. Labs: Laboratory Results - last 24 hr 08/08/21 08/08/21 08/08/21 18:38 18:38 18:38 WBC 10.8 RBC 4.80 Hgb 14.0 Hct 42.6 MCV 88.8 MCH 29.2 MCHC 32.9 RDW Std Deviation 43.7 RDW Coeff of Tere 13.3 Plt Count 154 MPV 9.9 Immature Gran % (Auto) 0.700 Neut % (Auto) 59.5 Lymph % (Auto) 24.1 [place] % (Auto) 12.7 H Eos % (Auto) 2.4 Baso % (Auto) 0.6 Absolute Neuts (auto) 6.4 Absolute Lymphs (auto) 2.59 Nucleated RBC % 0 D-Dimer Quant (PE/DVT) 0.66 H* Sodium 131 L Potassium 2.8 L Chloride 93 L Carbon Dioxide 30.0 Anion Gap 8 BUN 7 Creatinine 1.39 H Estim Creat Clear Calc 47.09 Est GFR (MDRD) Af Amer 52 L Est GFR (MDRD) Non-Af 43 L BUN/Creatinine Ratio 5.0 L Glucose 314 H Lactic Acid Calcium 8.3 L Total Bilirubin 0.30 AST 83 H ALT 25 Alkaline Phosphatase 130 H Total Protein 7.9 Albumin 2.8 L Globulin 5.1 H Albumin/Globulin Ratio 0.5 L Procalcitonin 08/08/21 08/08/21 20:20 20:20 WBC RBC Hgb Hct MCV MCH MCHC RDW Std Deviation RDW Coeff of Tere Plt Count MPV Immature Gran % (Auto) Neut % (Auto) Lymph % (Auto) [place] % (Auto) Eos % (Auto) Baso % (Auto) Absolute Neuts (auto) Absolute Lymphs (auto) Nucleated RBC % D-Dimer Quant (PE/DVT) Sodium Potassium Chloride Carbon Dioxide Anion Gap BUN Creatinine Estim Creat Clear Calc Est GFR (MDRD) Af Amer Est GFR (MDRD) Non-Af BUN/Creatinine Ratio Glucose Lactic Acid 2.3 H* Calcium Total Bilirubin AST ALT Alkaline Phosphatase Total Protein Albumin Globulin Albumin/Globulin Ratio Procalcitonin 0.23 H Rapid Covid test positive. Radiography Chest X-Ray - ED: 1 View, Read by ED Physician and - (Atelectasis versus early infiltrate bilateral lower lobes.) Diagnostic Testing: Radiology Impression Chest CTA 08/08/21 20:29 IMPRESSION: 1. No pulmonary embolism. 2. Consolidative infiltrates in the lower lungs worrisome for pneumonia. ASSESSMENT: ABNORMAL report - There are abnormal findings in this report which may be related or unrelated to the reason for the exam. Electronically Signed: Cornelio Villanueva MD at 21:39 EDT Tel , Service support , Chest X-Ray 08/08/21 20:49 IMPRESSION: Stranding at both bases thought to represent early infiltrate. Atelectasis is also considered in this limited inspiratory study. Electronically Signed: Ajit Miller DO at 21:32 EDT Tel [phone], Service support , EKG Initial EKG: Attestation: I personally reviewed and interpreted this EKG as follows: Interpretation: Sinus Rhythm (Sinus 89 with no acute ischemia. Nonspecific T wave flattening.) Treatment and Re-Evaluation Comments:: Lab work reviewed. D-dimer is slightly elevated and potassium is low at 2.8. Lactic acid is 2.3 and procalcitonin is 0.23. Patient be given a 500 cc fluid bolus. IV potassium replacement is ordered. Due to elevated D-dimer CTA of the chest is obtained. This does reveal bilateral infiltrates but no evidence of PE. Rapid Covid swab is positive. On repeat exam patient sitting upright in bed. Blood pressure has dropped back into the 80s. Another IV fluid bolus will be given. O2 sat is 98% on 3 L nasal cannula. Patient will be given a dose of Decadron and admitted for further treatment. Discharge Plan Triage Chief Complaint: Shortness of Breath ED Provider: Kelly Saenz Dx/Rx/DC Orders Clinical Impression: Pneumonia due to COVID-19 virus, Hypokalemia, Hypoxia Prescriptions: No Action cholecalciferol (vitamin D3) 1,250 mcg (50,000 unit) capsule 1,250 mcg PO QWEEK RF: 0 gabapentin 600 mg tablet 600 mg PO QHS RF: 0 gabapentin 600 mg tablet 1,200 mg PO DAILY RF: 0 albuterol sulfate [Ventolin HFA] 90 mcg/actuation HFA aerosol inhaler 2 puff INHALATION Q4H PRN (Reason: shortness of breath or wheezing) Qty: 18 RF: 6 ferrous sulfate 325 mg (65 mg iron) tablet,delayed release (DR/EC) 325 mg PO DAILY RF: 0 sulfamethoxazole-trimethoprim [Bactrim] 400-80 mg tablet 1 tab PO DAILY RF: 0 levothyroxine 200 MCG tablet 200 mcg PO DAILY RF: 0 levetiracetam 500 MG tablet 1,000 mg PO BID RF: 0 insulin lispro 100 UNIT/ML insulin pen 14 unit SC TIDCM RF: 0 insulin glargine 100 UNITS/ML insulin pen 45 units SC QHS RF: 0 [facility] [Primary [facility] Provider[facility] - Disposition Disposition: Acute Care Hospital [facility]
--- NOTE | 2021-08-08 22:16 | NURSING ---
THE [facility] CALLED BACK AND GAVE HER THE INFO ON PATIENTS ADMISSION AND FAXED THEM HER CHART. THEY WILL FOLLOW UP TOMORROW.
[2021-08-08] MEDS: dexAMETHasone 4 MG/ML Vial 6 MG IV (22:30)
[2021-08-08] MEDS: Acetaminophen 500 MG Tablet 1000 MG PO (22:30)
--- NOTE | 2021-08-08 22:40 | PCM.HP.STD ---
HPI - General General Date of Admission: 08/08/21 HPI Narrative DON HERNANDEZ, is a 50 F who presents from home with shortness of breath and some mild confusion for the last 5 days. She does have a known Covid exposure at home and she tested positive for Covid here in the hospital. She is unvaccinated on the advice of her physician secondary to her immunocompromise status in regards to her Pastora's. 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 In the ER she was found to be slightly hypotensive which did respond to fluid bolus, her kidney function is little bit elevated with creatinine 1.39 with baseline of 0.8. Her D-dimer was elevated, she had a CT of the chest which was negative for PEs but did show bilateral lower lobe pneumonias. [facility] Medical History (Updated 08/08/21 @ 22:[address] Peña Sullivan MD) Cervical radicular pain Chest pain Dehydration Diabetes Elevated lactic acid level History of type 1 diabetes mellitus Hyperglycemia Hypothyroidism Lung abscess Seizures Septic shock Steroid-induced hyperglycemia Wegeners granulomatosis Home Medications levothyroxine 200 mcg PO DAILY 05/10/20 [History Last Taken 06/19/20] levetiracetam 1,000 mg PO BID 06/15/20 [History Last Taken 06/19/20] insulin glargine 45 units SC QHS 07/14/20 [History Last Taken Unknown] insulin lispro 14 unit SC TIDCM 07/14/20 [History Last Taken Unknown] albuterol sulfate 90 mcg/actuation aerosol inhaler 2 puff INHALATION Q4H PRN #18 g 07/30/20 [Rx Last Taken Unknown] cholecalciferol (vitamin D3) 1,250 mcg (50,000 unit) capsule 1,250 mcg PO QWEEK 07/30/20 [History Last Taken Unknown] gabapentin 600 mg tablet 1,200 mg PO DAILY tab 07/30/20 [History Last Taken Unknown] gabapentin 600 mg tablet 600 mg PO QHS 07/30/20 [History Last Taken Unknown] ferrous sulfate 325 mg (65 mg iron) tablet,delayed release 325 mg PO DAILY 10/22/20 [History Last Taken Unknown] sulfamethoxazole 400 mg-trimethoprim 80 mg tablet 1 tab PO DAILY 10/22/20 [History Last Taken Unknown] Allergy/AdvReac Type Severity Reaction Status Date / Time NSAIDS (Non-Steroidal Allergy Swelling Verified 08/08/21 19:00 Anti-Inflamma ketorolac [From Toradol] AdvReac headache Verified 08/08/21 19:00 prednisone AdvReac PT UNSURE Verified 08/08/21 19:00 OF REACTION tramadol AdvReac headache Verified 08/08/21 19:00 Family History Grandfather COPD (chronic obstructive pulmonary disease) Surgical History H/O: hysterectomy Social History Smoking Status: Current every day smoker tobacco type: cigarettes Tobacco: How many years used: 7 ROS Constitutional Constitutional: Reports chills, fatigue and fever(s); Denies malaise Eyes Eyes: Denies blurry vision ENT HEENT: Denies headache(s) or nasal discharge Cardiovascular Cardiovascular: Denies chest pain, dyspnea on exertion or syncope Respiratory/Chest Respiratory/Chest: Denies cough, shortness of breath at rest or shortness of breath with exertion Gastrointestinal Gastrointestinal: Reports nausea; Denies constipation, diarrhea or vomiting Genitourinary Genitourinary: Denies dysuria Neurologic Neurologic: Denies focal weakness, numbness or tremor(s) Psychiatric Psychiatric: Denies anxiety or depression Vital Signs Vital Signs Vital Signs: 08/08/21 18:55 08/08/21 18:58 08/08/21 19:44 Temperature 97.6 F L 97.6 F L Temperature Source Oral Oral Pulse Rate 100 100 Respiratory Rate 17 17 Respiratory Effort Normal Non-Labored Respiratory Depth Normal Respiratory Pattern Normal Blood Pressure 82/50 L 82/50 L Blood Pressure Mean 60 60 Pulse Ox 100 100 81 Oxygen Delivery Method Room Air Room Air Room Air Oxygen Flow Rate (L/min) 08/08/21 19:50 08/08/21 19:58 08/08/21 20:00 Temperature 97.6 F L 97.6 F L Temperature Source Temporal Temporal Pulse Rate 90 90 Respiratory Rate 17 17 Respiratory Effort Respiratory Depth Respiratory Pattern Blood Pressure 100/59 L 100/59 L Blood Pressure Mean 72 72 Pulse Ox 100 95 94 Oxygen Delivery Method Non-Rebreather Nasal Cannula Nasal Cannula Oxygen Flow Rate (L/min) 15 3 3 08/08/21 20:29 08/08/21 21:00 08/08/21 22:00 Temperature 97.6 F L 97.7 F L Temperature Source Temporal Oral Pulse Rate 93 94 Respiratory Rate 15 16 Respiratory Effort Respiratory Depth Respiratory Pattern Blood Pressure 86/59 L 100/54 L Blood Pressure Mean 68 69 Pulse Ox 94 95 96 Oxygen Delivery Method Nasal Cannula Nasal Cannula Nasal Cannula Oxygen Flow Rate (L/min) 3 3 2 Weight Weight: 209 lb 3.499 oz Body Mass Index (BMI) 32.8 Physical Exam Const alert, oriented x3 and no apparent distress General Appearance: cooperative HEENT normocephalic Mouth: dry mucous membranes Eyes PERRL, EOMs intact bilaterally and conjunctivae normal Neck supple and no JVD Resp normal respiratory effort, no retractions, no use of accessory muscles and clear to auscultation bilaterally Auscultation: diminished lung sounds; Negative for crackles, rales, rhonchi or wheezes Cardio regular rate, regular rhythm, S1 normal heart sound, S2 normal heart sound and no murmurs GI soft to palpation, non-tender and non-distended; Negative for hepatosplenomegaly Extremity no clubbing, cyanosis or edema Skin no rashes or lesions noted Neuro no focal motor deficits and no sensory deficits noted Psych affect normal Appearance: appropriate Results Lab / Micro Data Result Diagrams: 08/08/21 18:38 08/08/21 18:38 Labs: Laboratory Results - last 24 hr 08/08/21 18:38: WBC 10.8, RBC 4.80, Hgb 14.0, Hct 42.6, MCV 88.8, MCH 29.2, MCHC 32.9, RDW Std Deviation 43.7, RDW Coeff of Tere 13.3, Plt Count 154, MPV 9.9, Immature Gran % (Auto) 0.700, Neut % (Auto) 59.5, Lymph % (Auto) 24.1, [place] % (Auto) 12.7 H, Eos % (Auto) 2.4, Baso % (Auto) 0.6, Absolute Neuts (auto) 6.4, Absolute Lymphs (auto) 2.59, Nucleated RBC % 0 08/08/21 18:38: D-Dimer Quant (PE/DVT) 0.66 H* 08/08/21 18:38: Sodium 131 L, Potassium 2.8 L, Chloride 93 L, Carbon Dioxide 30.0, Anion Gap 8, BUN 7, Creatinine 1.39 H, Estim Creat Clear Calc 47.09, Est GFR (MDRD) Af Amer 52 L, Est GFR (MDRD) Non-Af 43 L, BUN/Creatinine Ratio 5.0 L, Glucose 314 H, Calcium 8.3 L, Total Bilirubin 0.30, AST 83 H, ALT 25, Alkaline Phosphatase 130 H, Total Protein 7.9, Albumin 2.8 L, Globulin 5.1 H, Albumin/Globulin Ratio 0.5 L 08/08/21 20:20: Lactic Acid 2.3 H* 08/08/21 20:20: Procalcitonin 0.23 H Micro: Microbiology 08/08/21 20:18 Nasal Secretion SARS-CoV-2 Antigen (Rapid) - Final SARS-CoV-2 (COVID 19) Radiology Impression Chest CTA 08/08/21 20:29 IMPRESSION: 1. No pulmonary embolism. 2. Consolidative infiltrates in the lower lungs worrisome for pneumonia. ASSESSMENT: ABNORMAL report - There are abnormal findings in this report which may be related or unrelated to the reason for the exam. Electronically Signed: Cornelio Villanueva MD at 21:39 EDT Tel , Service support , Chest X-Ray 08/08/21 20:49 IMPRESSION: Stranding at both bases thought to represent early infiltrate. Atelectasis is also considered in this limited inspiratory study. Electronically Signed: Ajit Miller DO at 21:32 EDT Tel [phone], Service support , Assessment & Plan Assessment/Plan (1) Pneumonia due to COVID-19 virus: (2) Acute respiratory failure with hypoxia: (3) JOHANN (acute kidney injury): PLAN: 1. Acute hypoxic respiratory failure secondary to COVID-19 pneumonia -Since symptoms are within the last 5 days, will start on remdesivir and Decadron -We will obtain a sputum culture -CTA was negative for PEs, will place her prophylactic Lovenox -We will continue with gentle fluid hydration secondary to her JOHANN -Incentive spirometer, continue with oxygen -She is unvaccinated 2. DM1 -We will continue with her home insulin, and add a sliding scale insulin -We will monitor make adjustments as necessary secondary to her Decadron -Accu-Cheks AC at bedtime 3. Pastora's granulomatosis -Not on any current outpatient medication, will continue to monitor -She did receive Rituxan and this likely does make her immunocompromised -Secondary to this would recommend vaccination for Covid on discharge 4. Seizure disorder -We will continue with her Keppra and gabapentin 5. Hypothyroidism -Stable -Continue Synthroid DVT: Lovenox Charges/Coding Visit Charges Inpatient E&M: 49082 Init Hosp L3
[2021-08-08] MEDS: 0.9% Normal Saline 1,000 ML 999 ML IV (23:12)
[2021-08-08 23:20] LABS: Magnesium 1.7 mg/dL (1.6-2.6)
[2021-08-08] MEDS: Potassium Chloride Oral Tablet 20 MEQ 60 MEQ PO (23:59)
[2021-08-09] VITALS (9 sets, daily range): BP systolic 93–140; BP diastolic 35–88; PULSE 72–88; RESP 15–20; TEMP 36.6–36.9; O2SAT 94–98; BMI 31.4
[2021-08-09 00:25] LABS: Bedside Glucose 168 mg/dL (70-110)
[2021-08-09 00:26] LABS: Reflex Lactate? Y
[2021-08-09] MEDS: 0.9% Normal Saline 1,000 ML 75 ML IV (00:54)
[2021-08-09 02:00] LABS: Lactic Acid 0.7 mmol/L (0.4-1.9)
[2021-08-09 05:22] LABS: Absolute Lymphocyte Count 1.05 X10^3/uL (0.83-4.51); Absolute Neutrophil Count 5.5 X10^3/uL (2.0-7.7); Basophil# 0.02 X10^3/uL; Basophil% 0.3 % (0-1); Eosinophil# 0.01 X10^3/uL; Eosinophils% 0.1 % (0-5); Hematocrit 40.8 % (37-47); Lymphocyte # 1.05 X10^3/ul (0.83-4.51); Lymphocyte % 15.4 % (19-41); Mean Corp Hgb Conc 31.9 g/dL (32-36); Mean Corpuscular Hgb 28.6 pg (27.0-32.0); Mean Corpuscular Volume 89.9 fL (81-99); Mean Platelet Vol. 9.8 fl (6.2-12.0); Monocyte# 0.17 X10^3/uL; Monocyte% 2.5 % (0-10); NRBC Flagged by Analyzer 0 % (0-5); Neutrophil # 5.54 X10^3/uL (2.7-7.7); Neutrophil % 81.3 % (47-70); Platelet Count 127 K/mm3 (150-450); RBC Distribution Width CV 13.3 % (11.6-14.6); RBC Distribution Width SD 44.2 fl (35.1-43.9); Red Blood Count 4.54 M/mm3 (4.2-5.4); White Blood Count 6.8 K/mm3 (4.4-11.0)
[2021-08-09 05:51] LABS: ALB/GLOB Ratio 0.5 RATIO (0.9-2.4); AST(SGOT) 68 U/L (15-37); Alanine Aminotransfer ALT/SGPT 20 U/L (13-56); Albumin, Serum 2.3 g/dL (3.2-5.0); Alkaline Phosphatase 112 U/L (45-117); Anion Gap 6 (5-15); BUN 7 mg/dL (7-18); BUN/Creat Ratio 8.3 RATIO (10-20); Calcium,Total 8.1 mg/dL (8.5-10.1); Chloride 105 mmol/L (98-107); Creatinine, Serum 0.84 mg/dL (0.55-1.02); EST Glomerular Filtration Rate 76 mL/min (>60); Est Glom Filt Rate - Afr Amer 92 mL/min (>60); Estimated Creatinine Clearance 77.92 ml/min; Globulin 4.8 g/dL (2.2-4.2); Glucose 281 mg/dL (74-106); Potassium 4.9 mmol/L (3.5-5.1); Protein, Total 7.1 g/dL (6.4-8.2); Sodium Level 135 mmol/L (136-145)
[2021-08-09] MEDS: Levothyroxine 100 MCG Tablet 200 MCG PO (08:38)
[2021-08-09] MEDS: levETIRAcetam 1,000 MG Tablet 1000 MG PO (08:38)
[2021-08-09] MEDS: dexAMETHasone 4 MG Tablet 6 MG PO (08:39)
[2021-08-09] MEDS: Ferrous Sulfate 325 MG Tablet PO (08:42)
[2021-08-09 09:00] LABS: Bedside Glucose 282 mg/dL (70-110)
[2021-08-09] MEDS: Insulin Lispro 100 UNIT/ML INSULN.PEN 14 UNIT SC ×2 (09:56→12:07)
[2021-08-09] MEDS: Insulin Lispro 100 UNIT/ML INSULN.PEN SC ×2 (09:56→12:07)
[2021-08-09] MEDS: Enoxaparin 30 MG/0.3 ML Syringe SC (09:58)
--- NOTE | 2021-08-09 12:16 | PCM.DC ---
Discharge Instructions Diet Discharge Diet: 2000 mg Sodium Diet Activity Discharge Activity: May Not Drive Weight Bearing Status: Weight bearing as tolerated Additional Activity Instructions:: Self quarantine for 3 weeks from the start of symptoms, 08/04/2021 Dressing / Incision Call your doctor if you observe: Fever of 101 or Higher, Coldness, Increased Pain, Numbness or Tingling, Change in Color, Inability to urinate, Inability to have a bowel movement, Using more than 1 pad per hour, Shortness of breath, Dizziness, Fainting spells, Swelling in the ankles, Chest pain, Prolonged hiccupping, Increased palpitations (irregular heartbeat), Calf discomfort and Uncontrolled pain Follow Up Care Test Results: Test results from this visit will be discussed in further detail at your follow-up appointment, if applicable. Discharge Plan Admission Admit Date/Time: 08/08/21 22:39 Primary Reason for Your Visit: COVID-19 infection with history of Pastora's granulomatosis Attending Provider: Mykel Dukes Primary [facility] Provider: [facility] Instructions Patient Instructions: COVID-19: Lying in a Prone Position (Proning) Discharge Orders/Prescriptions Prescriptions: New dexamethasone 4 mg Tablet 6 mg PO DAILY 8 Days Qty: 12 RF: 0 Eliquis 2.5 mg tablet 2.5 mg PO BID Qty: 30 RF: 0 pseudoephedrine-guaifenesin [Mucinex D] 60-600 mg tablet extended release 12 hr 2 tab PO BID Qty: 20 RF: 0 Continued cholecalciferol (vitamin D3) 1,250 mcg (50,000 unit) capsule 1,250 mcg PO QWEEK RF: 0 gabapentin 600 mg tablet 1,200 mg PO QHS RF: 0 gabapentin 600 mg tablet 900 mg PO DAILY RF: 0 albuterol sulfate [Ventolin HFA] 90 mcg/actuation HFA aerosol inhaler 2 puff INHALATION Q4H PRN (Reason: shortness of breath or wheezing) Qty: 18 RF: 6 ferrous sulfate 325 mg (65 mg iron) tablet,delayed release (DR/EC) 325 mg PO DAILY RF: 0 levothyroxine 200 MCG tablet 200 mcg PO DAILY RF: 0 levetiracetam 500 MG tablet 1,000 mg PO BID RF: 0 insulin lispro 100 UNIT/ML insulin pen 14 unit SC TIDCM RF: 0 insulin glargine 100 UNITS/ML insulin pen 45 units SC QHS RF: 0 [facility]errals [facility] - In 1 Week (Virtual visit for COVID-19) Disposition Disposition (needs filled in before D/C Order can be placed): Home, Self Care
[2021-08-09 12:21] LABS: Bedside Glucose 344 mg/dL (70-110)
--- NOTE | 2021-08-09 12:29 | DS.PCM_ITS ---
Providers Date of Admission: 08/08/21 Primary Care Physician: [facility] Consultations 08/09/21 07:26 Consult: Onc/Wound/cancer center director Routine Comment: Reason for Consult:: pressure sore to buttock Reason For Visit: COVID PNEUMONIA Diagnosis Discharge Diagnosis (1) Pneumonia due to COVID-19 virus: Status: Acute Code(s): U07.1 - COVID-19; J12.82 - Pneumonia due to coronavirus disease 2019 (2) Acute respiratory failure with hypoxia: Status: Acute Code(s): J96.01 - Acute respiratory failure with hypoxia (3) JOHANN (acute kidney injury): Status: Acute Code(s): N17.9 - Acute kidney failure, unspecified Medications at Discharge Home Medications levothyroxine 200 mcg PO DAILY 05/10/20 levetiracetam 1,000 mg PO BID 06/15/20 insulin glargine 45 units SC QHS 07/14/20 insulin lispro 14 unit SC TIDCM 07/14/20 albuterol sulfate 90 mcg/actuation aerosol inhaler 2 puff INHALATION Q4H PRN #18 g 07/30/20 cholecalciferol (vitamin D3) 1,250 mcg (50,000 unit) capsule 1,250 mcg PO QWEEK 07/30/20 gabapentin 600 mg tablet 1,200 mg PO QHS 07/30/20 gabapentin 600 mg tablet 900 mg PO DAILY tab 07/30/20 ferrous sulfate 325 mg (65 mg iron) tablet,delayed release 325 mg PO DAILY 10/22/20 apixaban [Eliquis] 2.5 mg PO BID #30 tab 08/09/21 dexamethasone 6 mg PO DAILY 8 Days #12 tab 08/09/21 pseudoephedrine-guaifenesin [Mucinex D] 2 tab PO BID #20 tab 08/09/21 Hospital Course Summary of Care Provided Hospital Course: This is a 50-year-old female with history of Pastora's granulomatosis/GPA admitted with shortness of breath some mild confusion for 5 days. In ER she was found to have elevated creatinine 1.39 from baseline 0.8 suggestive of acute kidney injury and was also hypotensive which responded with IV fluid bolus. Patient has history of GPA and has received Rituxan in last 6 months. Patient did not had Covid vaccine because of immunocompromised host. CT chest negative for PE but shows bilateral lower lobe infiltrates, atelectasis or consolidation. Patient was started on IV dexamethasone, remdesivir, PEP, incentive spirometry and oxygen therapy. Patient was admitted as PCU status in ER because of vulnerability of bed. She responded well with treatment. Pulse ox 98% on room air. Home qualification oxygen done and patient does not require oxygen 98% at rest on room air and 97% on ambulating on room air. prescription for dexamethasone, Eliquis for 2 weeks and Mucinex D sent to patient's pharmacy. Discharge medication reconciliation done. Discharge follow-up instructions completed. Discharge process discussed with the patient and all questions were answered to patient's satisfaction. Total time spent, exact 35 minutes on discharge meds reconciliation, examination, coordination of care with nurses and ancillary staff, review of imaging and blood test and discussion with the patient on follow-up instructions Patient was admitted as inpatient but was discharged because of sooner recovery than expected at time of admission. Physical Exam Narrative Seen and examined. No fever. Pulse ox 98% on room air. Mild cough. General: Alert, Oriented x3, Cooperative HEENT: Atraumatic, PERRLA, EOMI, Normocephalic Oral: No Gingival or Mucosal Lesions/ Ulcerations Neck: Supple, No JVD, Negative Carotid Bruits Lungs: Air entry diminished in bilateral lung bases. No crepitation/rhonchi Cardiovascular: Regular rate, Regular Rhythm, Normal S1, Normal S2, No murmurs Abdomen: Bowel Sounds Present, Soft, Non Tender, Non-Distended : No renal angle tenderness. No suprapubic tenderness. Extremities: No edema, Capillary Refill Less than 3 Seconds Skin: No rashes, No breakdown Musculoskeletal: No Tenderness to Palpation of Joints or Extremities Neurological: Cranial nerves II-XII grossly intact, DTR 2+/4 and Symmetrical, Neuro grossly intact Psych/Mental Status: Normal Affect, Appropriate. Weight / BMI Weight Weight: 201 lb 0.985 oz Body Mass Index (BMI) 31.4 ABG / Lab / Microbiology Data Result Diagrams: 08/09/21 05:12 08/09/21 05:12 Laboratory: Laboratory Results - last 24 hr 08/08/21 18:38: WBC 10.8, RBC 4.80, Hgb 14.0, Hct 42.6, MCV 88.8, MCH 29.2, MCHC 32.9, RDW Std Deviation 43.7, RDW Coeff of Tere 13.3, Plt Count 154, MPV 9.9, Immature Gran % (Auto) 0.700, Neut % (Auto) 59.5, Lymph % (Auto) 24.1, Gray % (Auto) 12.7 H, Eos % (Auto) 2.4, Baso % (Auto) 0.6, Absolute Neuts (auto) 6.4, Absolute Lymphs (auto) 2.59, Nucleated RBC % 0 08/08/21 18:38: D-Dimer Quant (PE/DVT) 0.66 H* 08/08/21 18:38: Sodium 131 L, Potassium 2.8 L, Chloride 93 L, Carbon Dioxide 30.0, Anion Gap 8, BUN 7, Creatinine 1.39 H, Estim Creat Clear Calc 47.09, Est GFR (MDRD) Af Amer 52 L, Est GFR (MDRD) Non-Af 43 L, BUN/Creatinine Ratio 5.0 L, Glucose 314 H, Calcium 8.3 L, Total Bilirubin 0.30, AST 83 H, ALT 25, Alkaline Phosphatase 130 H, Total Protein 7.9, Albumin 2.8 L, Globulin 5.1 H, Albumin/Globulin Ratio 0.5 L 08/08/21 18:38: Magnesium 1.7 08/08/21 20:20: Lactic Acid 2.3 H* 08/08/21 20:20: Procalcitonin 0.23 H 08/09/21 00:21: POC Glucose 168 H 08/09/21 01:20: Lactic Acid 0.7 08/09/21 05:12: WBC 6.8, RBC 4.54, Hgb 13.0, Hct 40.8, MCV 89.9, MCH 28.6, MCHC 31.9 L, RDW Std Deviation 44.2 H, RDW Coeff of Tere 13.3, Plt Count 127 L, MPV 9.8, Immature Gran % (Auto) 0.400, Neut % (Auto) 81.3 H, Lymph % (Auto) 15.4 L, Gray % (Auto) 2.5, Eos % (Auto) 0.1, Baso % (Auto) 0.3, Absolute Neuts (auto) 5.5, Absolute Lymphs (auto) 1.05, Nucleated RBC % 0 08/09/21 05:12: Sodium 135 L, Potassium 4.9, Chloride 105, Carbon Dioxide 24.0, Anion Gap 6, BUN 7, Creatinine 0.84, Estim Creat Clear Calc 77.92, Est GFR (MDRD) Af Amer 92, Est GFR (MDRD) Non-Af 76, BUN/Creatinine Ratio 8.3 L, Glucose 281 H, Calcium 8.1 L, Total Bilirubin 0.30, AST 68 H, ALT 20, Alkaline Phosphatase 112, Total Protein 7.1, Albumin 2.3 L, Globulin 4.8 H, Albumin/Globulin Ratio 0.5 L 08/09/21 08:44: POC Glucose 282 H 08/09/21 12:02: POC Glucose 344 H Microbiology: Microbiology 08/08/21 20:18 Nasal Secretion SARS-CoV-2 Antigen (Rapid) - Final SARS-CoV-2 (COVID 19) Radiography Diagnostic Testing: Radiology Impression Chest CTA 08/08/21 20:29 IMPRESSION: 1. No pulmonary embolism. 2. Consolidative infiltrates in the lower lungs worrisome for pneumonia. ASSESSMENT: ABNORMAL report - There are abnormal findings in this report which may be related or unrelated to the reason for the exam. Electronically Signed: Cornelio Villanueva MD at 21:39 EDT Tel , Service support , Chest X-Ray 08/08/21 20:49 IMPRESSION: Stranding at both bases thought to represent early infiltrate. Atelectasis is also considered in this limited inspiratory study. Electronically Signed: Ajit Miller DO at 21:32 EDT Tel [phone], Service support , D/C Instructions Discharge Diet: 2000 mg Sodium Diet Weight Bearing Status: Weight bearing as tolerated Additional Activity Instructions: Self quarantine for 3 weeks from the start of symptoms, 08/04/2021 Call your doctor if you observe: Fever of 101 or Higher, Coldness, Increased Pain, Numbness or Tingling, Change in Color, Inability to urinate, Inability to have a bowel movement, Using more than 1 pad per hour, Shortness of breath, Dizziness, Fainting spells, Swelling in the ankles, Chest pain, Prolonged hiccupping, Increased palpitations (irregular heartbeat), Calf discomfort and Uncontrolled pain Meaningful Use Info Meaningful Use Diagnoses (Choose all that apply): None applicable Discharge Plan Admission Admit Date/Time: 08/08/21 22:39 Primary Reason for Your Visit: COVID-19 infection with history of Pastora's granulomatosis Attending Provider: Mykel Dukes Primary Care Provider: [facility] Instructions Patient Instructions: COVID-19: Lying in a Prone Position (Proning) Discharge Orders/Prescriptions Prescriptions: New dexamethasone 4 mg Tablet 6 mg PO DAILY 8 Days Qty: 12 RF: 0 Eliquis 2.5 mg tablet 2.5 mg PO BID Qty: 30 RF: 0 pseudoephedrine-guaifenesin [Mucinex D] 60-600 mg tablet extended release 12 hr 2 tab PO BID Qty: 20 RF: 0 Continued cholecalciferol (vitamin D3) 1,250 mcg (50,000 unit) capsule 1,250 mcg PO QWEEK RF: 0 gabapentin 600 mg tablet 1,200 mg PO QHS RF: 0 gabapentin 600 mg tablet 900 mg PO DAILY RF: 0 albuterol sulfate [Ventolin HFA] 90 mcg/actuation HFA aerosol inhaler 2 puff INHALATION Q4H PRN (Reason: shortness of breath or wheezing) Qty: 18 RF: 6 ferrous sulfate 325 mg (65 mg iron) tablet,delayed release (DR/EC) 325 mg PO DAILY RF: 0 levothyroxine 200 MCG tablet 200 mcg PO DAILY RF: 0 levetiracetam 500 MG tablet 1,000 mg PO BID RF: 0 insulin lispro 100 UNIT/ML insulin pen 14 unit SC TIDCM RF: 0 insulin glargine 100 UNITS/ML insulin pen 45 units SC QHS RF: 0 Referrals / Follow Up: [facility] [Primary Care Provider] - In 1 Week (Virtual visit for COVID-19) Disposition Disposition (needs filled in before D/C Order can be placed): Home, Self Care Charges/Coding Visit Charges Inpatient E&M: 20717 Disch Hosp
[2021-08-09] MEDS: Gabapentin 300 MG Capsule 900 MG PO (12:41)
--- NOTE | 2021-08-09 15:25 | NURSING ---
1245-dr rangel in and pt asking to donald.. pt continues on ra and sats 98% doing incentive spirometry every hour as directed and up to 2500. vs stable now. pt up to january at bedside on ra for home o2 qualification. sig other at bedside. homegoing covid teaching given to pt and family. waiting on dc papers
--- NOTE | 2021-08-13 13:52 | CASEMGMT ---
RN CM Discharge Follow-up Phone Call: [facility]MA: Srinivas Strata: 2 Call Date: 08/13/21 Discharge Date: 08/09/21 Time of Call: 1350 Admitting Diagnosis: COVID-19 This RN CM attempted to contact pt via phone for discharge follow-up. Phone rang but no voicemail received or answer by pt. Ameena Carroll RN CM
== END 2021-08-09 13:40 | disposition home or self-care (01) | DRG 871 ==
LOC: ED 22:09 → PCU 23:01
PROVIDERS: Admitting Provider Family Medicine; Emergency Provider Emergency Medicine; Visit Provider Internal Medicine
DX: A41.89 Other specified sepsis (principal); U07.1 COVID-19; J12.82 Pneumonia due to coronavirus disease 2019; J96.01 Acute respiratory failure with hypoxia; M31.30 Wegener's granulomatosis without renal involvement; N17.9 Acute kidney failure, unspecified; E10.65 Type 1 diabetes mellitus with hyperglycemia; F17.210 Nicotine dependence, cigarettes, uncomplicated; E87.6 Hypokalemia; E03.9 Hypothyroidism, unspecified; Z79.899 Other long term (current) drug therapy; Z79.890 Hormone replacement therapy; Z79.4 Long term (current) use of insulin; G40.909 Epilepsy, unspecified, not intractable, without status epilepticus
CPT/HCPCS: 36415; 71045; 71275; 80053; 82962; 83605; 83735; 84145; 85025; 85379; 87040; 87426; 93005; 99285; J7030; J7050; Q9967; A4216

== ENCOUNTER 2022-01-13 18:32 | Inpatient (IN) | payer OTHER, SELFPAY ==
[2022-01-13] VITALS (11 sets, daily range): BP systolic 89–122; BP diastolic 42–94; PULSE 123–130; RESP 12–22; TEMP 37.2–37.8; O2SAT 92–100; BMI 30.2
--- NOTE | 2022-01-13 18:37 | EKG12_ITS ---
Test Reason : WEAKNESS Blood Pressure : / mmHG Vent. Rate : 127 BPM Atrial Rate : 127 BPM P-R Int : 142 ms QRS Dur : 080 ms QT Int : 286 ms P-R-T Axes : 069 042 065 degrees QTc Int : 415 ms Sinus tachycardia Low voltage QRS (Limb Leads) Confirmed by FLORA SHEIKH, ALBA ([id number]), design editor YVONNE CLARK ([id number]) on 01/15/2022 11:48:15 AM Referred By: NED Confirmed By:ALBA HINES MD
--- NOTE | 2022-01-13 18:40 | CM.ED ---
Social Work Responding to stroke alert. Stroke alert canceled. Will continue to follow as needed. Patient also noted to have ED Care Plan. Patient last ED visit was in 2020 for COVID pneumonia and admitted, prior to that visit patient has not been to the ED since 2019. Reji BURROUGHS, PRIYANKA
--- NOTE | 2022-01-13 19:06 | CT_ITS ---
STUDY: CT BRAIN WITHOUT CONTRAST REASON FOR EXAM: Female, 51 years old. Acute change in mental status TECHNIQUE: Transaxial CT imaging of the brain was performed without administration of intravenous contrast material. Individualized dose optimization techniques were used for this CT. COMPARISON: 06.24.20 FINDINGS: Normal calvarium. Normal soft tissues. Normal size ventricles and extra-axial spaces for the patient''s age. Normal white matter tracts of the cerebral hemispheres. Normal basal ganglia and thalami. Normal brainstem. Normal cerebellum. There is no intracranial hemorrhage. There are no findings of an acute ischemic infarction. Normal visualized paranasal sinuses. ASPECTS 10 CT/Brain/Head without Contrast IMPRESSION: There are no acute intracranial findings. Electronically Signed: Leroy Garcia MD at 19:20 EST ,
--- NOTE | 2022-01-13 19:10 | RAD_ITS ---
STUDY: X-RAY CHEST REASON FOR EXAM: Female, 51 years old. CHEST PAIN Tachypnea TECHNIQUE: XR Chest 1 View COMPARISON: 9.9 FINDINGS: There is a left pleural effusion. Normal size heart. Normal mediastinum and janes. Normal visualized pulmonary arteries. Normal visualized aortic arch and descending thoracic aorta. Normal visualized thoracic spine. Normal visualized ribs, clavicles, and shoulders. There is no demonstrated abnormality of the visualized soft tissue structures of the upper abdomen. RAD/Chest 1 View (Portable) IMPRESSION: There is a left pleural effusion. Electronically Signed: Leroy Garcia MD at 19:23 EST ,
[2022-01-13 19:54] LABS: Bacteria 0 SEEN /hpf (None Seen); Mucous, Urine 0 SEEN /hpf (<or=2+); Red Blood Cells-Urine 0 SEEN /hpf (0-5); Squamous Epithelial Cells - UA 0 SEEN /hpf (5-10)
--- NOTE | 2022-01-13 20:02 | US_ITS ---
STUDY: VENOUS DOPPLER ULTRASOUND - BILATERAL LOWER EXTREMITY REASON FOR EXAM: Female, 51 years old. LEG PAIN AND SWELLING undefined -- PAIN TECHNIQUE: Ultrasound evaluation of the deep vein system to include -scale imaging and compression was performed. -scale imaging and Doppler sonographic evaluation, including duplex spectral analysis and qualitative color flow sonography, was performed. COMPARISON: None. FINDINGS: Common Femoral Vein: Normal compression, spontaneity and augmentation. Normal color Doppler. Common Femoral Vein/Greater Saphenous Junction: Normal compression, spontaneity and augmentation. Normal color Doppler. Superficial Femoral Proximal: Normal compression, spontaneity and augmentation. Normal color Doppler. Superficial Femoral Middle: Normal compression, spontaneity and augmentation. Normal color Doppler. Superficial Femoral Distal: Normal compression, spontaneity and augmentation. Normal color Doppler. Popliteal Vein: Normal compression, spontaneity and augmentation. Normal color Doppler. Posterior Tibial Vein: Normal compression, spontaneity and augmentation. Normal color Doppler. Peroneal Vein: Normal compression, spontaneity and augmentation. Normal color Doppler. Right inguinal lymph nodes. Soft tissue edema. Left inguinal lymph nodes. There is no demonstrated deep venous thrombosis. US/Venous Duplex Imag/Sunil Extrem IMPRESSION: There is no demonstrated deep venous thrombosis. Soft tissue edema Electronically Signed: Leroy Garcia MD at 21:11 EST ,
[2022-01-13 20:15] LABS: Color, Urine Yellow (Yellow); Glucose, Dipstick 1000 mg/dl (Normal); Ketone-Dipstick Negative (Negative); Leukocyte Esterase-Dipstick 500 /ul (Negative); Nitrite-Dipstick Negative (Negative); Occult Blood-Urine 250 /ul (Negative); Protein-Dipstick 30 mg/dl (Negative); Urine Bilirubin Dipstick Negative (Negative); Urine Clarity Turbid (Clear); Urine Urobilinogen Normal (Normal)
[2022-01-13 20:28] LABS: White Blood Cells >100 SEEN /hpf (0-5)
--- NOTE | 2022-01-13 20:30 | ED.RN ---
Dr. Park notified of MAP @64, fluid bolus ordered.
[2022-01-13 20:32] LABS: Hematocrit 34.4 % (37-47); Hemoglobin 12.5 g/dL (12.0-15.0); Mean Corp Hgb Conc 36.3 g/dL (32-36); Mean Corpuscular Hgb 29.7 pg (27.0-32.0); Mean Corpuscular Volume 81.7 fL (81-99); Mean Platelet Vol. 9.6 fl (6.2-12.0); POSITIVE COUNT YES; POSITIVE DIFFERENTIAL YES; POSITIVE MORPHOLOGY YES; Platelet Count 168 K/mm3 (150-450); RBC Distribution Width CV 12.9 % (11.6-14.6); RBC Distribution Width SD 38.2 fl (35.1-43.9); Red Blood Count 4.21 M/mm3 (4.2-5.4); White Blood Count 20.8 K/mm3 (4.4-11.0)
[2022-01-13 20:39] LABS: Differential Indicated MANUAL DIFF
--- NOTE | 2022-01-13 20:43 | EX.ED.DYSGE1 ---
HPI History of Present Illness Chief Complaint: Weakness Detail of Chief Complaint: Altered mental status, weakness and hyperglycemia Informant: EMS Onset/Context/Timing Quality: Per HPI Location: Generalized Current Severity: Unable to determine Worsened by: Unknown Relieved by: Unknown Associated Symptoms Associated Symptoms: Unable to determine Narrative Narrative: Patient is a 51-year-old woman with history of diabetes, hypothyroidism, seizure disorder, Pastora's granulomatous who was brought to the emergency department as a possible STEMI, stroke. Upon arrival patient is encephalopathic. She is unable to provide an adequate history. With a blood sugar of 488 large swollen left leg compared to right with discoloration and bilateral inguinal lymphadenopathy concerned this may represent sepsis from cellulitis versus DVT. Low likelihood for stroke. Patient's history is limited because of her altered mental status. She is disoriented to time. She believes she is 36 years of age. Prior similar symptoms: Yes (Per nursing staff) Recent Illness/Hospitalization: No PFSH FOR[facility]LY [facility], [facility] Medical History (Updated 01/13/22 @ 21:[address] Jesse Park MD) Cervical radicular pain Chest pain Dehydration Diabetes Elevated lactic acid level History of type 1 diabetes mellitus Hyperglycemia Hypothyroidism Hypoxia Lung abscess Pneumonia due to COVID-19 virus Seizures Septic shock Steroid-induced hyperglycemia Wegeners granulomatosis Home Medications levothyroxine 200 mcg PO DAILY 05/10/20 [History Last Taken 06/19/20] levetiracetam 1,000 mg PO BID 06/15/20 [History Last Taken 06/19/20] insulin glargine 45 units SC QHS 07/14/20 [History Last Taken 08/08/21] insulin lispro 14 unit SC TIDCM 07/14/20 [History Last Taken Unknown] albuterol sulfate 90 mcg/actuation aerosol inhaler 2 puff INHALATION Q4H PRN #18 g 07/30/20 [Rx Last Taken Unknown] cholecalciferol (vitamin D3) 1,250 mcg (50,000 unit) capsule 1,250 mcg PO QWEEK 07/30/20 [History Last Taken Unknown] gabapentin 600 mg tablet 1,200 mg PO QHS 07/30/20 [History Last Taken Unknown] gabapentin 600 mg tablet 900 mg PO DAILY tab 07/30/20 [History Last Taken Unknown] ferrous sulfate 325 mg (65 mg iron) tablet,delayed release 325 mg PO DAILY 10/22/20 [History Last Taken Unknown] apixaban [Eliquis] 2.5 mg PO BID #30 tab 08/09/21 [Rx Last Taken Unknown] dexamethasone 6 mg PO DAILY 8 Days #12 tab 08/09/21 [Rx Last Taken Unknown] pseudoephedrine-guaifenesin [Mucinex D] 2 tab PO BID #20 tab 08/09/21 [Rx Last Taken Unknown] Allergy/AdvReac Type Severity Reaction Status Date / Time NSAIDS (Non-Steroidal Allergy Swelling Verified 01/13/22 18:45 Anti-Inflamma ketorolac [From Toradol] AdvReac headache Verified 01/13/22 18:45 prednisone AdvReac PT UNSURE Verified 01/13/22 18:45 OF REACTION tramadol AdvReac headache Verified 01/13/22 18:45 Family History Grandfather COPD (chronic obstructive pulmonary disease) Surgical History H/O: hysterectomy Social History (Updated 01/13/22 @ 20:[address] Jesse Park MD) household members: none Smoking Status: Current every day smoker tobacco type: cigarettes Tobacco: How many years used: 7 substance use type: does not use ROS ROS ED Review of Systems ROS Unobtainable: due to mental status EXAM Physical Exam Const Vital Signs: 01/13/22 18:33 01/13/22 18:43 01/13/22 19:16 Temperature 98.9 F 98.9 F Temperature Source Oral Temporal Pulse Rate 127 H 124 H Respiratory Rate 12 15 Respiratory Effort Normal Respiratory Pattern Normal Blood Pressure 107/63 107/63 Blood Pressure Mean 77 77 Pulse Ox 94 95 Oxygen Delivery Method Room Air Room Air Oxygen Flow Rate (L/min) 01/13/22 19:32 01/13/22 20:00 01/13/22 21:00 Temperature 99.0 F 99.5 F H 99.5 F H Temperature Source Temporal Temporal Temporal Pulse Rate 125 H 125 H 125 H Respiratory Rate 17 22 H 18 Respiratory Effort Respiratory Pattern Blood Pressure 96/54 L 89/52 L 89/51 L Blood Pressure Mean 68 64 63 Pulse Ox 98 99 98 Oxygen Delivery Method Room Air Room Air Nasal Cannula Oxygen Flow Rate (L/min) 2 Positive well nourished, well developed, obese and unkempt; Negative for cachectic or contractures General Appearance ED: unkempt, well developed, pallor and other Patient appears pale. ; Negative for cachectic, contractures, cyanotic, diaphoretic or NAD Nutritional Appearance: obese; Negative for cachectic HEENT Reports TM's clear and dry mucous membranes; Denies moist mucous membranes HEENT Narrative: Nares patent. No drainage. Ears normal. TMs normal. Negative for trauma or tenderness Tympanic Membrane ED: Yes TM's clear Mouth ED: Yes dry mucous membranes Mouth: dry mucous membranes Eyes PERRL and EOMs intact bilaterally General Eye ED: Yes pale conjunctiva; Negative for scleral icterus Neck no lymphadenopathy, supple and no JVD Resp normal respiratory effort Auscultation: rales bilateral base and diminished lung sounds Cardio regular rhythm, S1 normal heart sound, S2 normal heart sound and no murmurs Rate: tachycardic GI normal to inspection, nondistended, normoactive bowel sounds, non-tender and non-distended Palpation: soft Back/Spine no CVA tenderness Cervical Spine: Negative for cervical spine tenderness Thoracic Spine / Upper Back: Negative for thoracic spinal tenderness Extremity Negative for normal to inspection Extremity Narrative: Patient has a markedly swollen left leg compared to right. They are both swelling with pitting edema. There appears to be cellulitis involving both legs. There is bilateral inguinal lymphadenopathy. There are wounds anterior left leg and probable nidus for infection. General Extremety ED: Yes edema and tenderness General Extremity: edema Neuro No oriented x3 and CN's II-XII intact bilaterally Sensorium / Orientation: Negative for alert Psych Appearance: unkempt Skin General Skin Exam: pallor; Negative for jaundice Wounds: wounds noted MDM MDM MDM Narrative Medical decision making narrative: With abrupt onset of altered mental status need to evaluate for bleed versus other causes will obtain CT of the head. Concern patient may have a DVT of the extremity. Venous duplex study was ordered. I was informed by tech preliminary reading is no evidence of clot. There is bilateral inguinal lymphadenopathy. There is significant edema as well. Concerned this represents cellulitis. Sepsis work-up was undertaken. Patient was treated with Zosyn for both urologic and dermatologic pathogens since her urine reveals greater than 100 WBCs. Urine was positive for leukoesterase and blood but negative for nitrites. Blood cultures were ordered prior to antibiotic administration. I was informed by nurse that patient's blood pressure is below 90. Fluid bolus was ordered. Will administer 30 cc/kg. Lab Data Attestation: I reviewed the patient's lab results. Lab results narrative: Patient's labs are consistent with septic shock. She also has hyponatremia. Patient's sodium is much lower than 1 would expect for a glucose of 462. This is an acute change from prior. Labs: Laboratory Results - last 24 hr 01/13/22 01/13/22 01/13/22 19:45 20:20 20:20 WBC 20.8 H RBC 4.21 Hgb 12.5 Hct 34.4 L MCV 81.7 MCH 29.7 MCHC 36.3 H RDW Std Deviation 38.2 RDW Coeff of Tere 12.9 Plt Count 168 MPV 9.6 Neut % (Auto) Not Reportable Absolute Neuts (auto) 19.1 H Absolute Lymphs (auto) 1.04 Total Counted 100 Neutrophils % (Manual) 87 H Band Neutrophils % 5 Lymphocytes % (Manual) 5 L Monocytes % (Manual) 3 Diff Path Review May foll Platelet Estimate ADEQUATE RBC Morphology NORM C+C Sodium 121 L Potassium 3.4 L Chloride 84 L Carbon Dioxide 27.0 Anion Gap 10 BUN 43 H Creatinine 2.35 H Estim Creat Clear Calc 27.54 Est GFR (MDRD) Af Amer 28 L Est GFR (MDRD) Non-Af 23 L BUN/Creatinine Ratio 18.3 Glucose 462 H* Lactic Acid Calcium 8.4 L Total Bilirubin 0.90 AST 57 H ALT 16 Alkaline Phosphatase 145 H Troponin I High Sens 6 Total Protein 7.3 Albumin 2.4 L Globulin 4.9 H Albumin/Globulin Ratio 0.5 L Urine Color Yellow Urine Clarity Turbid Urine pH 6.0 Ur Specific [place] 1.010 Urine Protein 30 H Urine Glucose (UA) 1000 H Urine Ketones Negative Urine Occult Blood 250 H Urine Nitrite Negative Urine Bilirubin Negative Urine Urobilinogen Normal Ur Leukocyte Esterase 500 H Urine RBC 0 SEEN Urine WBC >100 SEEN Ur Squamous Epith Cells 0 SEEN Urine Bacteria 0 SEEN Urine Mucus 0 SEEN 01/13/22 20:20 WBC RBC Hgb Hct MCV MCH MCHC RDW Std Deviation RDW Coeff of Tere Plt Count MPV Neut % (Auto) Absolute Neuts (auto) Absolute Lymphs (auto) Total Counted Neutrophils % (Manual) Band Neutrophils % Lymphocytes % (Manual) Monocytes % (Manual) Diff Path Review Platelet Estimate RBC Morphology Sodium Potassium Chloride Carbon Dioxide Anion Gap BUN Creatinine Estim Creat Clear Calc Est GFR (MDRD) Af Amer Est GFR (MDRD) Non-Af BUN/Creatinine Ratio Glucose Lactic Acid 4.8 H* Calcium Total Bilirubin AST ALT Alkaline Phosphatase Troponin I High Sens Total Protein Albumin Globulin Albumin/Globulin Ratio Urine Color Urine Clarity Urine pH Ur Specific [place] Urine Protein Urine Glucose (UA) Urine Ketones Urine Occult Blood Urine Nitrite Urine Bilirubin Urine Urobilinogen Ur Leukocyte Esterase Urine RBC Urine WBC Ur Squamous Epith Cells Urine Bacteria Urine Mucus Radiography Chest X-Ray - ED: 1 View and Read by ED Physician (Chest x-ray tryptase reveals a small right pleural effusion. Cardiac silhouette and size unremarkable. Minimal chronic changes noted. [place] structures unremarkable. Mediastinum is unremarkable.) Diagnostic Testing: Clinical Impression(s) from Imaging Studies Brain CT 01/13/22 19:06 IMPRESSION: There are no acute intracranial findings. Electronically Signed: Leroy Garcia MD at 19:20 EST , Chest X-Ray 01/13/22 19:10 IMPRESSION: There is a left pleural effusion. Electronically Signed: Leroy Garcia MD at 19:23 EST , Venous Duplex 01/13/22 20:02 IMPRESSION: There is no demonstrated deep venous thrombosis. Soft tissue edema Electronically Signed: Leroy Garcia MD at 21:11 EST , Critical Care Time Critical Care Time: Yes Critical care time (excluding procedures): 30-74 minutes (34 minutes), Including time spent: (History, physical, documentation, review of prior records, interpretation of laboratory results, initiation of care), Discussing w/Consultants and Arranging Admission or Transfer Discharge Plan Triage Chief Complaint: Weakness ED Provider: Jesse Park Dx/Rx/DC Orders Clinical Impression: Septic shock, Infectious encephalopathy, Cellulitis of left lower leg, Cellulitis of leg, right, Sinus tachycardia, Acute hyponatremia Prescriptions: No Action cholecalciferol (vitamin D3) 1,250 mcg (50,000 unit) capsule 1,250 mcg PO QWEEK RF: 0 gabapentin 600 mg tablet 1,200 mg PO QHS RF: 0 gabapentin 600 mg tablet 900 mg PO DAILY RF: 0 albuterol sulfate [Ventolin HFA] 90 mcg/actuation HFA aerosol inhaler 2 puff INHALATION Q4H PRN (Reason: shortness of breath or wheezing) Qty: 18 RF: 6 ferrous sulfate 325 mg (65 mg iron) tablet,delayed release (DR/EC) 325 mg PO DAILY RF: 0 levothyroxine 200 MCG tablet 200 mcg PO DAILY RF: 0 levetiracetam 500 MG tablet 1,000 mg PO BID RF: 0 insulin lispro 100 UNIT/ML insulin pen 14 unit SC TIDCM RF: 0 insulin glargine 100 UNITS/ML insulin pen 45 units SC QHS RF: 0 dexamethasone 4 mg Tablet 6 mg PO DAILY 8 Days Qty: 12 RF: 0 Eliquis 2.5 mg tablet 2.5 mg PO BID Qty: 30 RF: 0 pseudoephedrine-guaifenesin [Mucinex D] 60-600 mg tablet extended release 12 hr 2 tab PO BID Qty: 20 RF: 0 [facility] [Primary Care Provider] -
[2022-01-13] MEDS: 0.9% Normal Saline 1,000 ML 1000 ML IV ×2 (21:00→21:48)
[2022-01-13 21:04] LABS: Lymphocyte 5 % (19-41); Monocyte 3 % (0-10); Neutrophil-Band 5 % (0-5); Neutrophil-Segmented 87 % (47-70); Total Cells Counted 100 (MANUAL DIFF)
[2022-01-13 21:06] LABS: Red Cell Morphology NORM C+C NORMAL (NORM C&C)
[2022-01-13 21:07] LABS: Platelet Estimate ADEQUATE (ADEQ)
[2022-01-13 21:17] LABS: Absolute Lymphocyte Count 1.04 X10^3/uL (0.83-4.51); Absolute Neutrophil Count 19.1 X10^3/uL (2.0-7.7)
[2022-01-13 21:19] LABS: ALB/GLOB Ratio 0.5 RATIO (0.9-2.4); AST(SGOT) 57 U/L (15-37); Alanine Aminotransfer ALT/SGPT 16 U/L (13-56); Albumin, Serum 2.4 g/dL (3.2-5.0); Alkaline Phosphatase 145 U/L (45-117); Anion Gap 10 (5-15); BUN 43 mg/dL (7-18); BUN/Creat Ratio 18.3 RATIO (10-20); Calcium,Total 8.4 mg/dL (8.5-10.1); Chloride 84 mmol/L (98-107); Creatinine, Serum 2.35 mg/dL (0.55-1.02); EST Glomerular Filtration Rate 23 mL/min (>60); Est Glom Filt Rate - Afr Amer 28 mL/min (>60); Estimated Creatinine Clearance 27.54 ml/min; Globulin 4.9 g/dL (2.2-4.2); Glucose 462 mg/dL (74-106); Lactic Acid 4.8 mmol/L (0.4-1.9); Potassium 3.4 mmol/L (3.5-5.1); Protein, Total 7.3 g/dL (6.4-8.2); Sodium Level 121 mmol/L (136-145); Troponin-I HS 6 pg/mL (3.0-54.0)
[2022-01-13 21:23] LABS: BNP,B-Type NATRIURETIC PEPTIDE 22.5 pg/mL (0-100)
--- NOTE | 2022-01-13 21:32 | PCM.HP.STD ---
HPI - General General Date of Admission: 01/13/22 Date of Service: 01/13/22 Chief Complaint: Right-sided weakness, confusion- 1 day Bilateral leg swelling -2 day HPI Narrative THURSDAY MARY, is a 51 F who presents with the above. Patient is a type I DM, liver cirrhosis, Pastora's granulomatosis who presents with the above. Patient was found to be confused, appeared to have right-sided weakness. History was taken from her , who appeared to know some history but not all. Patient was found to be confused this morning and not moving her right extremities. She has been having bilateral leg swelling ongoing for couple of days. Unclear if she has had fever or chills or nausea or vomiting. Unclear if she has history of diarrhea. stated the patient has been taking her medications. Vitals in the ED showed relative hypotension blood pressure 89/52. Heart rate was 126. Patient was on 2 L of oxygen. WBC count is 20.8, with left shift, hemoglobin 12.5, platelet count of 168, sodium is 121, potassium 3.4, chloride 84, bicarbonate 27, anion gap is 10, BUN 43, creatinine is 2.35, baseline creatinine is less than 1, blood glucose is 462, lactic acid 4.8, AST 57, ALT 16, ALP 145, troponin 6, BNP 22.5, albumin is 2.4 Admitting EKG shows sinus tachycardia. CT scan of the brain shows no acute intracranial finding. Chest x-ray shows a left pleural effusion. Bilateral venous duplex shows bilateral DVT [facility] Medical History Cervical radicular pain Chest pain Dehydration Diabetes Elevated lactic acid level History of type 1 diabetes mellitus Hyperglycemia Hypothyroidism Hypoxia Lung abscess Pneumonia due to COVID-19 virus Seizures Septic shock Steroid-induced hyperglycemia Wegeners granulomatosis Home Medications levothyroxine 200 mcg PO DAILY 05/10/20 [History Last Taken 06/19/20] levetiracetam 1,000 mg PO BID 06/15/20 [History Last Taken 06/19/20] insulin glargine 45 units SC QHS 07/14/20 [History Last Taken 08/08/21] insulin lispro 14 unit SC TIDCM 07/14/20 [History Last Taken Unknown] albuterol sulfate 90 mcg/actuation aerosol inhaler 2 puff INHALATION Q4H PRN #18 g 07/30/20 [Rx Last Taken Unknown] cholecalciferol (vitamin D3) 1,250 mcg (50,000 unit) capsule 1,250 mcg PO QWEEK 07/30/20 [History Last Taken Unknown] gabapentin 600 mg tablet 1,200 mg PO QHS 07/30/20 [History Last Taken Unknown] gabapentin 600 mg tablet 900 mg PO DAILY tab 07/30/20 [History Last Taken Unknown] ferrous sulfate 325 mg (65 mg iron) tablet,delayed release 325 mg PO DAILY 10/22/20 [History Last Taken Unknown] apixaban [Eliquis] 2.5 mg PO BID #30 tab 08/09/21 [Rx Last Taken Unknown] dexamethasone 6 mg PO DAILY 8 Days #12 tab 08/09/21 [Rx Last Taken Unknown] pseudoephedrine-guaifenesin [Mucinex D] 2 tab PO BID #20 tab 08/09/21 [Rx Last Taken Unknown] Allergy/AdvReac Type Severity Reaction Status Date / Time NSAIDS (Non-Steroidal Allergy Swelling Verified 01/13/22 18:45 Anti-Inflamma ketorolac [From Toradol] AdvReac headache Verified 01/13/22 18:45 prednisone AdvReac PT UNSURE Verified 01/13/22 18:45 OF REACTION tramadol AdvReac headache Verified 01/13/22 18:45 Family History Grandfather COPD (chronic obstructive pulmonary disease) Surgical History (Updated 01/13/22 @ 22:[address] Shanice Reveles MD) H/O: hysterectomy Hx of appendectomy Social History household members: none Smoking Status: Current every day smoker tobacco type: cigarettes Tobacco: How many years used: 7 substance use type: does not use ROS Review of Systems ROS Unobtainable: due to encephalopathy Vital Signs Vital Signs Vital Signs: 01/13/22 18:33 01/13/22 18:43 01/13/22 19:16 Temperature 98.9 F 98.9 F Temperature Source Oral Temporal Pulse Rate 127 H 124 H Respiratory Rate 12 15 Respiratory Effort Normal Respiratory Pattern Normal Blood Pressure 107/63 107/63 Blood Pressure Mean 77 77 Pulse Ox 94 95 Oxygen Delivery Method Room Air Room Air Oxygen Flow Rate (L/min) 01/13/22 19:32 01/13/22 20:00 01/13/22 21:00 Temperature 99.0 F 99.5 F H 99.5 F H Temperature Source Temporal Temporal Temporal Pulse Rate 125 H 125 H 125 H Respiratory Rate 17 22 H 18 Respiratory Effort Respiratory Pattern Blood Pressure 96/54 L 89/52 L 89/51 L Blood Pressure Mean 68 64 63 Pulse Ox 98 99 98 Oxygen Delivery Method Room Air Room Air Nasal Cannula Oxygen Flow Rate (L/min) 2 Weight Weight: 87.6 kg Body Mass Index (BMI) 30.2 Physical Exam Narrative Physical exam: General: Alert, confused, not oriented to self, place or time, mumbles in response to questions, obese, and HEENT: Atraumatic Oral: Dry mucosa Neck: Supple Lungs: Diminished to auscultation Cardiovascular: HS I+II, tachycardia Abdomen: Bowel Sounds Present, Soft, Non Tender Extremities: Bilateral pitting edema +4, erythema of the lower extremities with lower extremity venous ulcers with scabbing Results Lab / Micro Data Result Diagrams: 01/13/22 20:20 01/13/22 20:20 Labs: Laboratory Results - last 24 hr 01/13/22 19:45: Urine Color Yellow, Urine Clarity Turbid, Urine pH 6.0, Ur Specific [place] 1.010, Urine Protein 30 H, Urine Glucose (UA) 1000 H, Urine Ketones Negative, Urine Occult Blood 250 H, Urine Nitrite Negative, Urine Bilirubin Negative, Urine Urobilinogen Normal, Ur Leukocyte Esterase 500 H, Urine RBC 0 SEEN, Urine WBC >100 SEEN, Ur Squamous Epith Cells 0 SEEN, Urine Bacteria 0 SEEN, Urine Mucus 0 SEEN 01/13/22 20:20: WBC 20.8 H, RBC 4.21, Hgb 12.5, Hct 34.4 L, MCV 81.7, MCH 29.7, MCHC 36.3 H, RDW Std Deviation 38.2, RDW Coeff of Tere 12.9, Plt Count 168, MPV 9.6, Neut % (Auto) Not Reportable, Absolute Neuts (auto) 19.1 H, Absolute Lymphs (auto) 1.04, Total Counted 100, Neutrophils % (Manual) 87 H, Band Neutrophils % 5, Lymphocytes % (Manual) 5 L, Monocytes % (Manual) 3, Diff Path Review March, Platelet Estimate ADEQUATE, RBC Morphology NORM C+C 01/13/22 20:20: Sodium 121 L, Potassium 3.4 L, Chloride 84 L, Carbon Dioxide 27.0, Anion Gap 10, BUN 43 H, Creatinine 2.35 H, Estim Creat Clear Calc 27.54, Est GFR (MDRD) Af Amer 28 L, Est GFR (MDRD) Non-Af 23 L, BUN/Creatinine Ratio 18.3, Glucose 462 H*, Calcium 8.4 L, Total Bilirubin 0.90, AST 57 H, ALT 16, Alkaline Phosphatase 145 H, Troponin I High Sens 6, Total Protein 7.3, Albumin 2.4 L, Globulin 4.9 H, Albumin/Globulin Ratio 0.5 L 01/13/22 20:20: Lactic Acid 4.8 H* 01/13/22 20:20: B-Natriuretic Peptide 22.[address] 01/13/22 19:06 IMPRESSION: There are no acute intracranial findings. Electronically Signed: Leroy Garcia MD at 19:20 EST , Chest X-Ray 01/13/22 19:10 IMPRESSION: There is a left pleural effusion. Electronically Signed: Leroy Garcia MD at 19:23 EST , Venous Duplex 01/13/22 20:02 IMPRESSION: There is no demonstrated deep venous thrombosis. Soft tissue edema Electronically Signed: Leroy Garcia MD at 21:11 EST , Assessment & Plan Assessment/Plan (1) Septic shock: (2) Cellulitis of left lower leg: (3) Cellulitis of leg, right: (4) Infectious encephalopathy: (5) Acute hyponatremia: (6) Nicotine dependence, cigarettes, uncomplicated: PLAN: 1. Septic shock likely secondary to bilateral lower extremity cellulitis, probable acute UTI Patient has relative hypotension, tachycardia, responsive to fluids, WBC count of 20.8 Patient is immunocompromised, history of Pastora's granulomatosis/GPA, probable liver cirrhosis. 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 JOHANN, likely prerenal secondary to dehydration, septic shock Baseline Cr of <1, admitted with Cr 2.35 Continue with IV fluids, repeat blood work 3. Acute metabolic/infectious encephalopathy likely secondary to #[address] of the brain is negative for acute abnormality Continue to monitor, if encephalopathy persists, consider MRI of the brain to rule out acute stroke 4. Hypokalemia, replaced, recheck in a.m. 5. Hyponatremia, acute on chronic, likely secondary to #2 Admitted with sodium of 121, continue IV fluids Repeat labs in am 6. Bilateral leg cellulitis, severe, complicated by underlying hypoalbuminemia from liver disease Acute DVT ruled out with negative bilateral venous duplex Continue on IV Zosyn, elevate extremities 7. Probable acute UTI, urinalysis is suggestive, unsure if patient is symptomatic Continue on IV antibiotics, follow-up on urine cultures 8. Type I DM, on insulin, will continue to keep n.p.o. whilst encephalopathic Continue with blood glucose check every 6, insulin sliding scale with checks 9. Pastora's granulomatosis/GPA, not on oxygen at home, not on any medications at the moment 10. Reported history of chronic liver disease, hypoalbuminemia, follows with GI in [facility] 11. DVT PPx- Heparin SC 12. GI PPx- famotidine 13. CODE STATUS: DNR CCA, no intubation I discussed and explained in details the various types of CODE STATUS-full code, DNR CCA, DNR CC with the patient's as patient appeared confused. Her stated that patient has been clear to them that she does not want to be on artificial life support in the light of her numerous medical problems that she has. Time spent discussing CODE STATUS 16 minutes Charges/Coding Visit Charges Inpatient E&M: 18982 Init Hosp L3 Procedures Hospitalists Procedures: 72852 Advncd Care Plan 30 Min
--- NOTE | 2022-01-13 21:55 | CASEMGMT ---
ADI JOVEL Assessment: ADI JOVEL to room to meet with patient for initial transition planning/care coordination assessment. Per report, patient confused and unable to provide history. Patient appears restful on cart with oxygen per [place]. Patient's Serafin Jerry at bedside. ADI JOVEL introduced self and role at [facility]. voices understanding and consents to assessment at this time, provides all history. Care providers, pharmacy, and demographics verified/updated at this time. Admitting Dx: septic shock, cellulitis, hyperglycemia, hyponatremia, pyuria PCP: [place] Specialists: Arvind- pulmonology, BRYANNAF Hide Stretcher Hand ( unsure of name) Preferred Pharmacy: [email or web address] Insurance: [place] Prescription Benefit: yes Living Will/HPOA: Patient's denies that patient has a living will or HPOA. LNOK: Serafin Jerry Living Arrangements: Patient lives with and roommates in two story house with 4 steps to enter the home with a handrail present. Patient independent with ADLs prior to hospitalization but today is confused and weak. Patient is disabled. Per , patient typically ambulates independently without the use of an assistive device. Smoking/ETOH: Current smoker 1/2 ppd, denies ETOH or drug use Transportation: Per , patient rarely drives. drives patient and denies transportation concerns. DME/HHC/SNF: Patient has a walker, tub bench, grab bars, hand held shower, pulse oximeter and continuous glucose monitor. Patient's denies need for additional DME at this time. Denies previous HHC or SNF stays. Patient's has no concerns with patient going home at time of discharge. CM to follow for any discharge planning/needs. Patient's voices no concerns/needs at this time. Advised patient's to ask for CM if any questions/concerns/needs arise. Voices understanding. Plan: home, follow for HHC needs
--- NOTE | 2022-01-13 22:17 | NURSING ---
[facility] AND HAD OT LEAVE A VOICEMAIL. I LEFT THE PATIENTS INFO AND OUR NUMBER
[2022-01-13] MEDS: 0.9% Normal Saline 1,000 ML 150 ML IV (23:29)
[2022-01-13] MEDS: Potassium Chloride 10mEq/100mL 10 MEQ/100 ML IV.SOLN. 100 MEQ IV BOLUS (23:29)
[2022-01-13 23:31] LABS: Bedside Glucose 389 mg/dL (70-110)
[2022-01-14] VITALS (32 sets, daily range): BP systolic 83–125; BP diastolic 47–110; PULSE 101–133; RESP 13–23; TEMP 36.4–38.3; O2SAT 85–100
[2022-01-14 00:28] LABS: Reflex Lactate? Y
[2022-01-14] MEDS: Potassium Chloride 10mEq/100mL 10 MEQ/100 ML IV.SOLN. 100 MEQ IV BOLUS ×5 (00:35→13:07)
[2022-01-14] MEDS: Insulin Lispro 100 UNIT/ML INSULN.PEN SC ×5 (01:15→23:16)
[2022-01-14 01:23] LABS: Lactic Acid 3.4 mmol/L (0.4-1.9)
[2022-01-14 01:26] LABS: Bedside Glucose 332 mg/dL (70-110)
--- NOTE | 2022-01-14 01:33 | NURSING ---
01/13 2250: Pt arrived to ICU5, transferred to bed and attached to monitors. Pt obtunded/nonverbal on arrival, spontaneous jerking of extremities and unable to follow commands. BLE noted to be hot to touch with erythema, multiple ulcerated areas, and with pitting edema; pulses palpable to BLE, pt grimaces and withdraws with touch. Non-blanchable erythema noted to gluteal cleft and bilateral buttocks, with circular blackened area in gluteal cleft - area warm, moist - cleansed and Mepilex applied. Pt repositioned for comfort, will cont to closely monitor.
[2022-01-14 03:43] LABS: Hematocrit 31.5 % (37-47); Hemoglobin 11.2 g/dL (12.0-15.0); Mean Corp Hgb Conc 35.6 g/dL (32-36); Mean Corpuscular Volume 81.6 fL (81-99); Mean Platelet Vol. 9.5 fl (6.2-12.0); POSITIVE COUNT YES; POSITIVE DIFFERENTIAL YES; POSITIVE MORPHOLOGY YES; Platelet Count 131 K/mm3 (150-450); RBC Distribution Width CV 12.6 % (11.6-14.6); RBC Distribution Width SD 37.7 fl (35.1-43.9); Red Blood Count 3.86 M/mm3 (4.2-5.4)
[2022-01-14 03:59] LABS: Differential Indicated MANUAL DIFF
[2022-01-14 04:24] LABS: Neutrophil-Band 22 % (0-5); Neutrophil-Segmented 68 % (47-70); Total Cells Counted 100 (MANUAL DIFF)
[2022-01-14 04:25] LABS: Lymphocyte 3 % (19-41); Metamyelocyte 3 % (0-1); Monocyte 4 % (0-10); Platelet Estimate ADEQUATE (ADEQ)
[2022-01-14 04:26] LABS: Red Cell Morphology NORM C+C NORMAL (NORM C&C)
[2022-01-14 04:27] LABS: Neutrophil # 17.97 X10^3/uL (2.7-7.7)
[2022-01-14 04:30] LABS: ALB/GLOB Ratio 0.4 RATIO (0.9-2.4); AST(SGOT) 64 U/L (15-37); Alanine Aminotransfer ALT/SGPT 17 U/L (13-56); Albumin, Serum 1.9 g/dL (3.2-5.0); Alkaline Phosphatase 111 U/L (45-117); Anion Gap 4 (5-15); BUN 30 mg/dL (7-18); BUN/Creat Ratio 20.4 RATIO (10-20); Calcium,Total 7.8 mg/dL (8.5-10.1); Chloride 94 mmol/L (98-107); Creatinine, Serum 1.47 mg/dL (0.55-1.02); EST Glomerular Filtration Rate 40 mL/min (>60); Est Glom Filt Rate - Afr Amer 48 mL/min (>60); Estimated Creatinine Clearance 42.39 ml/min; Globulin 4.3 g/dL (2.2-4.2); Glucose 242 mg/dL (74-106); Potassium 3.4 mmol/L (3.5-5.1); Protein, Total 6.2 g/dL (6.4-8.2); Sodium Level 128 mmol/L (136-145)
[2022-01-14] MEDS: Heparin Injection (Vial) 5,000 UNIT/ML VIAL 5000 UNIT SC ×2 (06:19→20:59)
[2022-01-14 06:21] LABS: Bedside Glucose 213 mg/dL (70-110)
--- NOTE | 2022-01-14 07:18 | CON.PCM.CC_ITS ---
Assessment & Plan Assessment/Plan (1) Cellulitis of left lower leg: (2) Infectious encephalopathy: (3) Wegeners granulomatosis: (4) History of type 1 diabetes mellitus: PLAN: RECOMMENDATIONS: 1. Continue Zosyn therapy. Hold on Vanco given clinical improvement 2. Wound care to evaluate lower extremities 3. Delirium protocol 4. Potassium repletion as indicated 5. Aggressive blood sugar control. IMPRESSIONS: 1. Septic shock secondary to cellulitis versus UTI Patient was significant erythema of the left greater than right lower extr emity. Patient does have bilateral edema with superficial redness. Patient appears to be improving on Zosyn therapy and given renal function, will hold off on Vanco for now. Blood cultures are growing gram-positive cocci in chains, so strep would be a concern. We will hold on aggressive fluid resuscitation given normotensive status. 2. Acute kidney injury secondary to problem #1 Patient with significant improvement in creatinine overnight. Still not back to baseline. Continue with aggressive blood pressure support. Cannot exclude the need for pressor agents. Patient did have significant pyuria. 3. Type 1 diabetes?uncontrolled secondary to problem #1 Patient was significantly elevated blood sugars on multiple hospitalizat ions. Clinical concern for endogenous steroid given problem #1. We will continue with aggressive insulin therapy as necessary. 4. Hypokalemia/hypovolemic hyponatremia Patient did respond to fluid resuscitation. Hold IV fluids for now. Potassium repletion has been ordered. 5. Chronic liver disease/Pastora's granulomatosis/debility Complicates care, management, recovery and prognosis. Patient is a known DNR Comfort Care arrest without intubation. Continue to monitor liver function. HPI Consult Data Date of Consult: 01/14/22 HPI Narrative HPI Narrative: DONBRANDI HERNANDEZ is a 51 F, with past medical history listed below, who presents to [facility] on 01/13/2022 secondary to altered mental status, weakness and elevated blood sugars. Patient was brought to the emergency department for concerns for MN versus stroke. Patient reportedly was encephalopathic and unable to provide significant history. Patient was noted to have a blood sugar of 488 and had a significantly swollen leg. There was some concern for unilateral weakness, but this resolved. In the ER, patient was noted to have a temperature of 99.5 with a pulse of 125 bpm in sinus rhythm. Patient was hypotensive with a blood pressure of 89/51 on 2 L nasal cannula. Laboratory work-up showed a white blood cell count of 20.8, hemoglobin of 12.5 with a left shift. Potassium was low at 3.4 and BUN was elevated at 43 with a creatinine of 2.35. Glucose was elevated at 462. Alkaline phosphatase was slightly elevated, but otherwise liver enzymes were unremarkable. Patient did have significant pyuria and leukocyte esterase, but was negative on nitrites. Lactate was elevated at 4.8. Chest x-ray showed a left pleural effusion and CT of the head was unremarkable. Patient did not have a DVT noted in the ER. There was significant concern for severe sepsis secondary to cellulitis, so patient was given Zosyn, fluid administration and admitted to the intensive care unit for further evaluation. Since being in the intensive care unit, patient has been more appropriate. Patient is currently on 2 L nasal cannula, but blood pressures are improved. Patient has remained tachycardic and febrile. Microbiology is called and patient already has a positive blood culture in less than 12 hours. Patient does state that her legs feel better. Patient is not oriented to time or place, but does readily admit that her legs have been hurting her for the past week or so. Patient reports she has had issues with lower extremity sores for quite some time. [facility] Medical History Cervical radicular pain Chest pain Dehydration Diabetes Elevated lactic acid level History of type 1 diabetes mellitus Hyperglycemia Hypothyroidism Hypoxia Lung abscess Pneumonia due to COVID-19 virus Seizures Septic shock Steroid-induced hyperglycemia Wegeners granulomatosis Home Medications levothyroxine 200 mcg PO DAILY 05/10/20 [History Last Taken 06/19/20] levetiracetam 1,000 mg PO BID 06/15/20 [History Last Taken 06/19/20] insulin glargine 45 units SC QHS 07/14/20 [History Last Taken 08/08/21] insulin lispro 14 unit SC TIDCM 07/14/20 [History Last Taken Unknown] albuterol sulfate 90 mcg/actuation aerosol inhaler 2 puff INHALATION Q4H PRN #18 g 07/30/20 [Rx Last Taken Unknown] cholecalciferol (vitamin D3) 1,250 mcg (50,000 unit) capsule 1,250 mcg PO QWEEK 07/30/20 [History Last Taken Unknown] gabapentin 600 mg tablet 1,200 mg PO QHS 07/30/20 [History Last Taken Unknown] gabapentin 600 mg tablet 900 mg PO DAILY tab 07/30/20 [History Last Taken Un known] ferrous sulfate 325 mg (65 mg iron) tablet,delayed release 325 mg PO DAILY 10/22/20 [History Last Taken Unknown] apixaban [Eliquis] 2.5 mg PO BID #30 tab 08/09/21 [Rx Last Taken Unknown] dexamethasone 6 mg PO DAILY 8 Days #12 tab 08/09/21 [Rx Last Taken Unknown] pseudoephedrine-guaifenesin [Mucinex D] 2 tab PO BID #20 tab 08/09/21 [Rx Last Taken Unknown] Allergy/AdvReac Type Severity Reaction Status Date / Time NSAIDS (Non-Steroidal Allergy Swelling Verified 01/13/22 18:45 Anti-Inflamma ketorolac [From Toradol] AdvReac headache Verified 01/13/22 18:45 prednisone AdvReac PT UNSURE Verified 01/13/22 18:45 OF REACTION tramadol AdvReac headache Verified 01/13/22 18:45 Family History Grandfather COPD (chronic obstructive pulmonary disease) Surgical History H/O: hysterectomy Hx of appendectomy Social History household members: none Smoking Status: Current every day smoker tobacco type: cigarettes Tobacco: How many years used: 7 substance use type: does not use ROS Review of Systems ROS Unobtainable: due to encephalopathy Physical Exam Const alert, oriented x3 and no apparent distress General Appearance: cooperative HEENT normocephalic Mouth: dry mucous membranes Eyes PERRL, EOMs intact bilaterally and conjunctivae normal Neck supple and no JVD Resp normal respiratory effort, no retractions, no use of accessory muscles and clear to auscultation bilaterally Resp Narrative: Unable to perform percussion given inability to change body position Auscultation: diminished lung sounds; Negative for rales, rhonchi or wheezes Cardio regular rate, regular rhythm, S1 normal heart sound, S2 normal heart sound and no murmurs GI soft to palpation, non-tender and non-distended; Negative for hepatosplenomegaly Extremity no clubbing, cyanosis or edema Skin Skin Narrative: Significant erythema, left greater than right lower extremity. There is some anterior leg superficial ulcerations without exudate or induration. There has been some regression from marked areas on admission. Neuro no focal motor deficits and no sensory deficits noted Psych affect normal Appearance: appropriate Lab / Micro Data Result Diagrams: 01/14/22 03:30 01/14/22 03:30 Labs: Laboratory Results - last 24 hr 01/13/22 19:45: Urine Color Yellow, Urine Clarity Turbid, Urine pH 6.0, Ur Specific [place] 1.010, Urine Protein 30 H, Urine Glucose (UA) 1000 H, Urine Ke tones Negative, Urine Occult Blood 250 H, Urine Nitrite Negative, Urine Bilir ubin Negative, Urine Urobilinogen Normal, Ur Leukocyte Esterase 500 H, Urine RBC 0 SEEN, Urine WBC >100 SEEN, Ur Squamous Epith Cells 0 SEEN, Urine Bacteria 0 SEEN, Urine Mucus 0 SEEN 01/13/22 20:20: WBC 20.8 H, RBC 4.21, Hgb 12.5, Hct 34.4 L, MCV 81.7, MCH 29.7, MCHC 36.3 H, RDW Std Deviation 38.2, RDW Coeff of Tere 12.9, Plt Count 168, MPV 9.6, Neut % (Auto) Not Reportable, Absolute Neuts (auto) 19.1 H, Absolute Lymphs (auto) 1.04, Total Counted 100, Neutrophils % (Manual) 87 H, Band Neutrophils % 5, Lymphocytes % (Manual) 5 L, Monocytes % (Manual) 3, Diff Path Review March, Platelet Estimate ADEQUATE, RBC Morphology NORM C+C 01/13/22 20:20: Sodium 121 L, Potassium 3.4 L, Chloride 84 L, Carbon Dioxide 27.0, Anion Gap 10, BUN 43 H, Creatinine 2.35 H, Estim Creat Clear Calc 27.54, Est GFR (MDRD) Af Amer 28 L, Est GFR (MDRD) Non-Af 23 L, BUN/Creatinine Ratio 18.3, Glucose 462 H*, Calcium 8.4 L, Total Bilirubin 0.90, AST 57 H, ALT 16, Al kaline Phosphatase 145 H, Troponin I High Sens 6, Total Protein 7.3, Albumin 2.4 L, Globulin 4.9 H, Albumin/Globulin Ratio 0.5 L 01/13/22 20:20: Lactic Acid 4.8 H* 01/13/22 20:20: B-Natriuretic Peptide 22.5 01/13/22 23:22: POC Glucose 389 H 01/14/22 00:30: Lactic Acid 3.4 H* 01/14/22 01:15: POC Glucose 332 H 01/14/22 03:30: WBC 20.0 H, RBC 3.86 L, Hgb 11.2 L, Hct 31.5 L, MCV 81.6, MCH 29.0, MCHC 35.6, RDW Std Deviation 37.7, RDW Coeff of Tere 12.6, Plt Count 131 L, MPV 9.5, Neut % (Auto) Not Reportable, Absolute Neuts (auto) 18.0 H, Absolute Lymphs (auto) 0.60 L, Total Counted 100, Neutrophils % (Manual) 68, Band Neutrophils % 22 H, Lymphocytes % (Manual) 3 L, Monocytes % (Manual) 4, Metamyelocytes % 3 H, Diff Path Review March, Platelet Estimate ADEQUATE, RBC Morphology NORM C+C 01/14/22 03:30: Sodium 128 L, Potassium 3.4 L, Chloride 94 L, Carbon Dioxide 30.0, Anion Gap 4 L, BUN 30 H, Creatinine 1.47 H, Estim Creat Clear Calc 42.39, Est GFR (MDRD) Af Amer 48 L, Est GFR (MDRD) Non-Af 40 L, BUN/Creatinine Ratio 20.4 H, Glucose 242 H, Calcium 7.8 L, Magnesium TNP, Total Bilirubin 0.90, AST 64 H, ALT 17, Alkaline Phosphatase 111, Total Protein 6.2 L, Albumin 1.9 L, Globulin 4.3 H, Albumin/Globulin Ratio 0.4 L 01/14/22 06:16: POC Glucose 213 H Micro: Microbiology 01/13/22 20:05 Blood Culture (Wb) - Venous Blood Culture - Preliminary Radiology Impression Brain CT 01/13/22 19:06 IMPRESSION: There are no acute intracranial findings. Electronically Signed: Leroy Garcia MD at 19:20 EST , Chest X-Ray 01/13/22 19:10 IMPRESSION: There is a left pleural effusion. Electronically Signed: Leroy Garcia MD at 19:23 EST , Venous Duplex 01/13/22 20:02 IMPRESSION: There is no demonstrated deep venous thrombosis. Soft tissue edema Electronically Signed: Leroy Garcia MD at 21:11 EST , Charges/Coding Visit Charges Inpatient E&M: 55459 Init Hosp L3
[2022-01-14] MEDS: Acetaminophen 325 MG Tablet 650 MG PO (07:52)
[2022-01-14] MEDS: 0.9% Saline Lock 10 ML Syringe IV (07:52)
--- NOTE | 2022-01-14 08:46 | PCM.PN.HOSP ---
Subjective Subjective Feels little bit better than when she came in, redness is improved in her lower extremities. Objective Data Objective Data Vital Signs: Vital Signs Temp Pulse Resp BP Pulse Ox 100.9 F H 126 H 21 H 101/53 L 94 01/14/22 08:00 01/14/22 08:00 01/14/22 08:00 01/14/22 08:00 01/14/22 08:00 Oxygen Flow Rate (L/min) 2 Oxygen Delivery Method Nasal Cannula Weight: 192 lb 3.889 oz Body Mass Index (BMI) 30.2 Intake & Output: Intake and Output for Last 24 Hours 01/13/22 01/14/22 01/15/22 03:59 03:59 03:59 Intake Total 2600 / 2600 1100 / 1100 Output Total 1550 / 1550 900 / 900 Balance 1050 / 1050 200 / 200 Lab / Micro Data Result Diagrams: 01/14/22 03:30 01/14/22 03:30 Labs: Laboratory Results - last 24 hr 01/13/22 19:45: Urine Color Yellow, Urine Clarity Turbid, Urine pH 6.0, Ur Specific [place] 1.010, Urine Protein 30 H, Urine Glucose (UA) 1000 H, Urine Ketones Negative, Urine Occult Blood 250 H, Urine Nitrite Negative, Urine Bilirubin Negative, Urine Urobilinogen Normal, Ur Leukocyte Esterase 500 H, Urine RBC 0 SEEN, Urine WBC >100 SEEN, Ur Squamous Epith Cells 0 SEEN, Urine Bacteria 0 SEEN, Urine Mucus 0 SEEN 01/13/22 20:20: WBC 20.8 H, RBC 4.21, Hgb 12.5, Hct 34.4 L, MCV 81.7, MCH 29.7, MCHC 36.3 H, RDW Std Deviation 38.2, RDW Coeff of Tere 12.9, Plt Count 168, MPV 9.6, Neut % (Auto) Not Reportable, Absolute Neuts (auto) 19.1 H, Absolute Lymphs (auto) 1.04, Total Counted 100, Neutrophils % (Manual) 87 H, Band Neutrophils % 5, Lymphocytes % (Manual) 5 L, Monocytes % (Manual) 3, Diff Path Review March, Platelet Estimate ADEQUATE, RBC Morphology NORM C+C 01/13/22 20:20: Sodium 121 L, Potassium 3.4 L, Chloride 84 L, Carbon Dioxide 27.0, Anion Gap 10, BUN 43 H, Creatinine 2.35 H, Estim Creat Clear Calc 27.54, Est GFR (MDRD) Af Amer 28 L, Est GFR (MDRD) Non-Af 23 L, BUN/Creatinine Ratio 18.3, Glucose 462 H*, Calcium 8.4 L, Total Bilirubin 0.90, AST 57 H, ALT 16, Alkaline Phosphatase 145 H, Troponin I High Sens 6, Total Protein 7.3, Albumin 2.4 L, Globulin 4.9 H, Albumin/Globulin Ratio 0.5 L 01/13/22 20:20: Lactic Acid 4.8 H* 01/13/22 20:20: B-Natriuretic Peptide 22.5 01/13/22 23:22: POC Glucose 389 H 01/14/22 00:30: Lactic Acid 3.4 H* 01/14/22 01:15: POC Glucose 332 H 01/14/22 03:30: WBC 20.0 H, RBC 3.86 L, Hgb 11.2 L, Hct 31.5 L, MCV 81.6, MCH 29.0, MCHC 35.6, RDW Std Deviation 37.7, RDW Coeff of Tere 12.6, Plt Count 131 L, MPV 9.5, Neut % (Auto) Not Reportable, Absolute Neuts (auto) 18.0 H, Absolute Lymphs (auto) 0.60 L, Total Counted 100, Neutrophils % (Manual) 68, Band Neutrophils % 22 H, Lymphocytes % (Manual) 3 L, Monocytes % (Manual) 4, Metamyelocytes % 3 H, Diff Path Review March, Platelet Estimate ADEQUATE, RBC Morphology NORM C+C 01/14/22 03:30: Sodium 128 L, Potassium 3.4 L, Chloride 94 L, Carbon Dioxide 30.0, Anion Gap 4 L, BUN 30 H, Creatinine 1.47 H, Estim Creat Clear Calc 42.39, Est GFR (MDRD) Af Amer 48 L, Est GFR (MDRD) Non-Af 40 L, BUN/Creatinine Ratio 20.4 H, Glucose 242 H, Calcium 7.8 L, Magnesium Cancelled, Total Bilirubin 0.90, AST 64 H, ALT 17, Alkaline Phosphatase 111, Total Protein 6.2 L, Albumin 1.9 L, Globulin 4.3 H, Albumin/Globulin Ratio 0.4 L 01/14/22 06:16: POC Glucose 213 H Micro: Microbiology 01/13/22 20:10 Blood Culture (Wb) - Venous Blood Culture - Preliminary 01/13/22 20:05 Blood Culture (Wb) - Venous Blood Culture - Preliminary Radiography Diagnostic Testing: Radiology Impression Brain CT 01/13/22 19:06 IMPRESSION: There are no acute intracranial findings. Electronically Signed: Leroy Garcia MD at 19:20 EST , Chest X-Ray 01/13/22 19:10 IMPRESSION: There is a left pleural effusion. Electronically Signed: Leroy Garcia MD at 19:23 EST , Venous Duplex 01/13/22 20:02 IMPRESSION: There is no demonstrated deep venous thrombosis. Soft tissue edema Electronically Signed: Leroy Garcia MD at 21:11 EST , Physical Exam Const alert, oriented x3 and no apparent distress General Appearance: cooperative HEENT normocephalic Mouth: dry mucous membranes Eyes PERRL, EOMs intact bilaterally and conjunctivae normal Neck supple and no JVD Resp normal respiratory effort, no retractions and no use of accessory muscles Auscultation: diminished lung sounds; Negative for crackles, rales, rhonchi or wheezes Cardio regular rate, regular rhythm, S1 normal heart sound, S2 normal heart sound and no murmurs GI soft to palpation, non-tender and non-distended; Negative for hepatosplenomegaly Extremity General Extremity: edema; Negative for clubbing or cyanosis Skin Skin Narrative: Bilateral swelling with ulcerations. Redness is greater on the left than the right Neuro no focal motor deficits and no sensory deficits noted Psych affect normal Appearance: appropriate Assessment & Plan Assessment/Plan (1) Septic shock: (2) Cellulitis of left lower leg: (3) Infectious encephalopathy: (4) Acute hyponatremia: (5) Nicotine dependence, cigarettes, uncomplicated: PLAN: 1. Septic shock likely secondary to lower extremity cellulitis with gram-positive bacteremia/JOHANN/metabolic encephalopathy ?Hypotension has improved systolics are over 100, continue with IV fluids ?Both anaerobic bottles from blood cultures have come back positive with gram-positive cocci in chains ?Continue with Zosyn may be beneficial to transition to Ancef for better strep coverage pending results of the blood culture ?She does qualify as being immunocompromised secondary to her history of Pastora's granulomatosis ?We will continue to monitor renal function ?Appreciate customs patrol officer assistance ?Urine cultures pending however there is no bacteria on the UA and it does look like she was going glucose 2. DM 1 ?Continue with insulin and Accu-Cheks AC at bedtime ?We will monitor and make adjustments as necessary 3. Pastora's granulomatosis ?She is not on any oxygen at home and does not take any chronic medications for her Pastora's 4. Does have a history of chronic liver disease and hypoalbuminemia which she follows with GI at the [facility], this complicates her care DVT: Heparin Charges/Coding Visit Charges Inpatient E&M: 59611 Subs Hosp L2
--- NOTE | 2022-01-14 10:13 | CASEMGMT ---
Addendum entered by Su Campos 01/14/22 14:36: Social Work SW received a message back from LISA Piper, primary SW at the [facility]. She stated in message that she is helping to return calls today. She states that pt is 100% service connected. Her callback is [phone], [phone] states after today to call Roxy if anything else is needed. PRIYANKA Marie Original Note: Social Work SW participated in ICU rounds this morning. SW reviewed chart and notes from pt's prior ED visits. Pt did have a SW in the past at the [facility], Roxy Providence([phone]). SW called Roxy and left a message inquiring about service connection, and if she is still working w/pt. Message left. LISA will continue to follow. PRIYANKA Marie
[2022-01-14 11:05] LABS: Magnesium 1.8 mg/dL (1.6-2.6)
[2022-01-14] MEDS: Juven (unflavored) Packet 1 PACKET PO (11:29)
[2022-01-14 11:46] LABS: Bedside Glucose 159 mg/dL (70-110)
--- NOTE | 2022-01-14 11:49 | WOUNDNOTE ---
wound photo: right lower leg
--- NOTE | 2022-01-14 11:49 | WOUNDNOTE ---
wound photo: left lower leg
--- NOTE | 2022-01-14 11:50 | WOUNDNOTE ---
wound photo: coccyx/left buttock
[2022-01-14] MEDS: Famotidine 20 MG Tablet PO ×2 (11:54→20:59)
[2022-01-14 17:41] LABS: Bedside Glucose 183 mg/dL (70-110)
[2022-01-14] MEDS: Docusate Sodium 100 MG Capsule PO (20:59)
[2022-01-14 23:25] LABS: Bedside Glucose 168 mg/dL (70-110)
[2022-01-15] VITALS (23 sets, daily range): BP systolic 95–149; BP diastolic 49–123; PULSE 94–122; RESP 15–27; TEMP 36.6–38; O2SAT 94–100
[2022-01-15 04:10] LABS: Absolute Lymphocyte Count 1.13 X10^3/uL (0.83-4.51); Basophil# 0.01 X10^3/uL; Eosinophil# 0.03 X10^3/uL; Eosinophils% 0.1 % (0-5); Hematocrit 32.4 % (37-47); Hemoglobin 11.3 g/dL (12.0-15.0); Lymphocyte # 1.13 X10^3/ul (0.83-4.51); Lymphocyte % 5.6 % (19-41); Mean Corp Hgb Conc 34.9 g/dL (32-36); Mean Corpuscular Hgb 28.4 pg (27.0-32.0); Mean Corpuscular Volume 81.4 fL (81-99); Mean Platelet Vol. 9.7 fl (6.2-12.0); Monocyte# 0.89 X10^3/uL; Monocyte% 4.4 % (0-10); NRBC Flagged by Analyzer 0 % (0-5); Neutrophil # 18.02 X10^3/uL (2.7-7.7); Neutrophil % 88.9 % (47-70); POSITIVE MORPHOLOGY YES; Platelet Count 127 K/mm3 (150-450); RBC Distribution Width SD 38.7 fl (35.1-43.9); Red Blood Count 3.98 M/mm3 (4.2-5.4); White Blood Count 20.3 K/mm3 (4.4-11.0)
[2022-01-15 04:11] LABS: Differential Indicated SCAN CRITERIA MET
[2022-01-15 04:36] LABS: Anion Gap 9 (5-15); BUN 19 mg/dL (7-18); BUN/Creat Ratio 28.7 RATIO (10-20); Calcium,Total 8.6 mg/dL (8.5-10.1); Chloride 98 mmol/L (98-107); Creatinine, Serum 0.66 mg/dL (0.55-1.02); EST Glomerular Filtration Rate 100 mL/min (>60); Est Glom Filt Rate - Afr Amer 121 mL/min (>60); Glucose 135 mg/dL (74-106); Sodium Level 133 mmol/L (136-145)
[2022-01-15] MEDS: Acetaminophen 325 MG Tablet 650 MG PO (04:47)
[2022-01-15] MEDS: Heparin Injection (Vial) 5,000 UNIT/ML VIAL 5000 UNIT SC ×3 (04:48→21:57)
[2022-01-15 04:58] LABS: Differential Comment SCANNED; Vacuolated Cells 2+
--- NOTE | 2022-01-15 07:18 | PN.CC_ITS ---
Assessment & Plan Assessment/Plan (1) Cellulitis of left lower leg: (2) Infectious encephalopathy: (3) Wegeners granulomatosis: (4) History of type 1 diabetes mellitus: PLAN: RECOMMENDATIONS: 1. Transition to cefazolin 2. Wound care to evaluate lower extremities 3. Delirium protocol 4. Potassium repletion as indicated 5. Continue aggressive blood sugar control. 6. Okay to leave the intensive care unit IMPRESSIONS: 1. Septic shock secondary to cellulitis versus UTI Patient was significant erythema of the left greater than right lower extremity. Patient does have bilateral edema with superficial redness. Given patient is only growing Streptococcus, patient will be transitioned to cefazolin. No pressors have been required. Clinical exam not consistent with necrotizing fasciitis. We will hold on aggressive fluid resuscitation given normotensive status. 2. Acute kidney injury secondary to problem #1 Resolved. Patient with significant improvement in creatinine overnight. Continue with aggressive blood pressure support. Low clinical suspicion for need for pressors. Patient did have significant pyuria. 3. Type 1 diabetes?uncontrolled secondary to problem #1 Patient was significantly elevated blood sugars on multiple hospitalizations. Clinical concern for endogenous steroid given problem #1. We will continue with aggressive insulin therapy as necessary. Blood sugars are well controlled at this time on the current regimen 4. Hypokalemia/hypovolemic hyponatremia Patient did respond to fluid resuscitation. Hold IV fluids for now. Potassium repletion has been ordered. 5. Chronic liver disease/Pastora's granulomatosis/debility Complicates care, management, recovery and prognosis. Patient is a known DNR Comfort Care arrest without intubation. Continue to monitor liver function. Subjective Subjective Patient did okay overnight. Patient subjectively improved compared to previous. Patient has had more erythema in the right groin and states it is tender only to touch. Patient believes pain is better than its been. No hypotension overnight requiring pressor therapy. Objective Data Objective Data Vital Signs: Vital Signs Temp Pulse Resp BP Pulse Ox 38.0 C H 99 19 H 109/56 L 95 01/15/22 04:00 01/15/22 07:00 01/15/22 07:00 01/15/22 07:00 01/15/22 07:00 Oxygen Flow Rate (L/min) 2 Oxygen Delivery Method Room Air Weight: 85.3 kg Body Mass Index (BMI) 30.2 Intake & Output: Intake and Output for Last 24 Hours 01/13/22 01/14/22 01/15/22 23:59 23:59 23:59 Intake Total 2400 / 2400 2730 / 2730 50 / 50 Output Total 800 / 800 3600 / 3600 700 / 700 Balance 1600 / 1600 -870 / -870 -650 / -650 Lab / Micro Data Result Diagrams: 01/15/22 04:00 01/15/22 04:00 Labs: Laboratory Results - last 24 hr 01/14/22 03:30: Magnesium Cancelled 01/14/22 03:30: Magnesium 1.8 01/14/22 11:34: POC Glucose 159 H 01/14/22 17:35: POC Glucose 183 H 01/14/22 23:16: POC Glucose 168 H 01/15/22 04:00: WBC 20.3 H, RBC 3.98 L, Hgb 11.3 L, Hct 32.4 L, MCV 81.4, MCH 28.4, MCHC 34.9, RDW Std Deviation 38.7, RDW Coeff of Tere 13.0, Plt Count 127 L, MPV 9.7, Immature Gran % (Auto) 1.000 H, Neut % (Auto) 88.9 H, Lymph % (Auto) 5.6 L, [place] % (Auto) 4.4, Eos % (Auto) 0.1, Baso % (Auto) 0.0, Absolute Neuts (auto) 18.0 H, Absolute Lymphs (auto) 1.13, Nucleated RBC % 0, Differential Comment SCANNED, Toxic Vacuolation 2+ 01/15/22 04:00: Sodium 133 L, Potassium 3.0 L, Chloride 98, Carbon Dioxide 26.0, Anion Gap 9, BUN 19 H, Creatinine 0.66, Estim Creat Clear Calc 94.40, Est GFR (MDRD) Af Amer 121, Est GFR (MDRD) Non-Af 100, BUN/Creatinine Ratio 28.7 H, Glucose 135 H, Calcium 8.6 Micro: Microbiology 01/13/22 20:10 Blood Culture (Wb) - Venous Bacteria Detection (PCR) - Final Streptococcus pyogenes 01/13/22 20:10 Blood Culture (Wb) - Venous Blood Culture - Preliminary 01/13/22 20:05 Blood Culture (Wb) - Venous Blood Culture - Preliminary Physical Exam Const alert, oriented x3 and no apparent distress General Appearance: cooperative HEENT normocephalic Mouth: dry mucous membranes Eyes PERRL, EOMs intact bilaterally and conjunctivae normal Neck supple and no JVD Resp normal respiratory effort, no retractions, no use of accessory muscles and clear to auscultation bilaterally Resp Narrative: No dullness to percussion Auscultation: diminished lung sounds; Negative for rales, rhonchi or wheezes Cardio regular rate, regular rhythm, S1 normal heart sound, S2 normal heart sound and no murmurs GI soft to palpation, non-tender and non-distended; Negative for hepatosplenomegaly Extremity no clubbing, cyanosis or edema Skin Skin Narrative: Significant erythema, left greater than right lower extremity. There is some anterior leg superficial ulcerations without exudate, fluctuance or induration. There has been some regression from marked areas on admission. Patient appears to have had some spreading of erythema in right groin. No fluctuance appreciated. Neuro no focal motor deficits and no sensory deficits noted Psych affect normal Appearance: appropriate Charges/Coding Visit Charges Inpatient E&M: 43212 Subs Hosp L3
[2022-01-15] MEDS: Famotidine 20 MG Tablet PO ×2 (08:34→21:57)
[2022-01-15] MEDS: Juven (unflavored) Packet 1 PACKET PO ×2 (08:35→17:56)
[2022-01-15] MEDS: Potassium Chloride Oral Tablet 20 MEQ 40 MEQ PO ×2 (08:57→17:56)
[2022-01-15 09:05] LABS: Bedside Glucose 137 mg/dL (70-110)
--- NOTE | 2022-01-15 09:17 | PN.HOSP_ITS ---
Subjective Subjective No issues overnight, feels little bit better than yesterday, she does have some more erythema in her right groin so her antibiotics were transitioned to Ancef. Objective Data Objective Data Vital Signs: Vital Signs Temp Pulse Resp BP Pulse Ox 100.4 F H 103 H 19 H 109/56 L 95 01/15/22 04:00 01/15/22 08:00 01/15/22 07:00 01/15/22 07:00 01/15/22 07:00 Oxygen Flow Rate (L/min) 2 Oxygen Delivery Method Room Air Weight: 188 lb 0.869 oz Body Mass Index (BMI) 30.2 Intake & Output: Intake and Output for Last 24 Hours 01/14/22 01/15/22 01/16/22 03:59 03:59 03:59 Intake Total 2600 / 2600 2580 / 2580 Output Total 1550 / 1550 2850 / 2850 700 / 700 Balance 1050 / 1050 -270 / -270 -700 / -700 Lab / Micro Data Result Diagrams: 01/15/22 04:00 01/15/22 04:00 Labs: Laboratory Results - last 24 hr 01/14/22 03:30: Magnesium 1.8 01/14/22 11:34: POC Glucose 159 H 01/14/22 17:35: POC Glucose 183 H 01/14/22 23:16: POC Glucose 168 H 01/15/22 04:00: WBC 20.3 H, RBC 3.98 L, Hgb 11.3 L, Hct 32.4 L, MCV 81.4, MCH 28.4, MCHC 34.9, RDW Std Deviation 38.7, RDW Coeff of Tere 13.0, Plt Count 127 L, MPV 9.7, Immature Gran % (Auto) 1.000 H, Neut % (Auto) 88.9 H, Lymph % (Auto) 5.6 L, [place] % (Auto) 4.4, Eos % (Auto) 0.1, Baso % (Auto) 0.0, Absolute Neuts (auto) 18.0 H, Absolute Lymphs (auto) 1.13, Nucleated RBC % 0, Differential Comment SCANNED, Toxic Vacuolation 2+ 01/15/22 04:00: Sodium 133 L, Potassium 3.0 L, Chloride 98, Carbon Dioxide 26.0, Anion Gap 9, BUN 19 H, Creatinine 0.66, Estim Creat Clear Calc 94.40, Est GFR (MDRD) Af Amer 121, Est GFR (MDRD) Non-Af 100, BUN/Creatinine Ratio 28.7 H, Glucose 135 H, Calcium 8.6 01/15/22 08:29: POC Glucose 137 H Micro: Microbiology 01/13/22 20:10 Blood Culture (Wb) - Venous Bacteria Detection (PCR) - Final Streptococcus pyogenes 01/13/22 20:10 Blood Culture (Wb) - Venous Blood Culture - Preliminary Streptococcus pyogenes 01/13/22 20:05 Blood Culture (Wb) - Venous Blood Culture - Preliminary Streptococcus pyogenes Physical Exam Narrative Const alert, oriented x3 and no apparent distress General Appearance: cooperative HEENT normocephalic Mouth: dry mucous membranes Eyes PERRL, EOMs intact bilaterally and conjunctivae normal Neck supple and no JVD Resp normal respiratory effort, no retractions and no use of accessory muscles Auscultation: diminished lung sounds; Negative for crackles, rales, rhonchi or wheezes Cardio regular rate, regular rhythm, S1 normal heart sound, S2 normal heart sound and no murmurs GI soft to palpation, non-tender and non-distended; Negative for hepatosplenomegaly Extremity General Extremity: edema; Negative for clubbing or cyanosis Skin Skin Narrative: Bilateral swelling with ulcerations. Redness is greater on the left than the right. New redness in the right groin Neuro no focal motor deficits and no sensory deficits noted Psych affect normal Appearance: appropriate Assessment & Plan Assessment/Plan (1) Septic shock: (2) Cellulitis of left lower leg: (3) Infectious encephalopathy: (4) Acute hyponatremia: (5) Nicotine dependence, cigarettes, uncomplicated: PLAN: 1. Septic shock likely secondary to lower extremity cellulitis with gram- positive bacteremia/JOHANN/metabolic encephalopathy ?Hypotension has improved systolics are over 100, continue with IV fluids ?Follow-up blood cultures with strep Chris ?We will transition to Ancef today and repeat blood cultures ?She does qualify as being immunocompromised secondary to her history of Pastora's granulomatosis ?We will continue to monitor renal function ?Appreciate machinist class b assistance ?Urine cultures pending however there is no bacteria on the UA and it does look like she was going glucose 2. DM 1 ?Continue with insulin and Accu-Cheks AC at bedtime ?We will monitor and make adjustments as necessary 3. Pastora's granulomatosis ?She is not on any oxygen at home and does not take any chronic medications for her Pastora's 4. Does have a history of chronic liver disease and hypoalbuminemia which she follows with GI at the [facility], this complicates her care DVT: Heparin Charges/Coding Visit Charges Inpatient E&M: 78413 Subs Hosp L2
[2022-01-15 09:28] LABS: Pathologist Review Reviewed
[2022-01-15 09:43] LABS: Pathologist Review Reviewed
--- NOTE | 2022-01-15 09:57 | CASEMGMT ---
Addendum entered by Su Campos 01/15/22 10:31: SW called the SW at the [facility] and left a message inquiring what the next steps would be to get a correction approved by [facility] for this pt. PRIYANKA Marie Original Note: Social Work SW participated in ICU rounds this morning. SW went back in after rounds to ask about home situation, code status, and discharge plan. We initially reviewed code status, pt confirmed code status as DNRCC-A, no intubation. SW asked pt about home situation, as she lives home w/ and a roommate. Pt states there are no concerns or issues. SW asked about completing POA, pt is not interested in completing forms, states her would make decisions for her if she cannot make them for herself. SW also asked pt about going to a senior living facility. Pt would prefer to go home, asked if she has to go. SW explained that therapy is recommending it, but we can talk about it again after she has therapy today. Pt agreeable to speak w/SW again this afternoon after therapy. SW did provide a list of senior living facilities that will [facility], in pt's preferred geographic area, complete with quality and resource use data. SW will continue to follow. PRIYANKA Marie
[2022-01-15] MEDS: Cefazolin 1 GM/50 ML BAG IV ×2 (11:38→15:47)
[2022-01-15] MEDS: Insulin Lispro 100 UNIT/ML INSULN.PEN SC ×2 (11:39→17:55)
[2022-01-15 11:46] LABS: Bedside Glucose 162 mg/dL (70-110)
--- NOTE | 2022-01-15 13:25 | PCM.CONS.GEN ---
Assessment & Plan Assessment/Plan (1) Cellulitis of left lower leg: PLAN: Will increase dose of cefazolin to 2gm iv q8h. Fever resolved. Cellulitis stable. Bcx with GAS. Low suspicion for nec fasc, no sign of gas gangrene on imaging. If worsens, would add iv clinda 900mg q8h. Will follow, thank you, d/w nursing (2) Infectious encephalopathy: HPI Consult Data Date of Consult: 01/15/22 HPI Narrative HPI Narrative: DON HERNANDEZ, is a 51 F with DM, cirrhosis, Pastora's, who presented 01/13 with confusion, BLE redness/pain/swelling. No known inciting event/trauma to her legs. Admitted to icu, on zosyn, narrowed to cefazolin. Feeling a little better, legs still red. Some nausea. Full ROS performed and neg except as noted above. Additional history obtained from at bedside. [facility] Medical History Cervical radicular pain Chest pain Dehydration Diabetes Elevated lactic acid level History of type 1 diabetes mellitus Hyperglycemia Hypothyroidism Hypoxia Lung abscess Pneumonia due to COVID-19 virus Seizures Septic shock Steroid-induced hyperglycemia Wegeners granulomatosis Home Medications levothyroxine 200 mcg PO DAILY 05/10/20 [History Last Taken 06/19/20] levetiracetam 1,000 mg PO BID 06/15/20 [History Last Taken 06/19/20] insulin glargine 45 units SC QHS 07/14/20 [History Last Taken 08/08/21] insulin lispro 14 unit SC TIDCM 07/14/20 [History Last Taken Unknown] albuterol sulfate 90 mcg/actuation aerosol inhaler 2 puff INHALATION Q4H PRN #18 g 07/30/20 [Rx Last Taken Unknown] cholecalciferol (vitamin D3) 1,250 mcg (50,000 unit) capsule 1,250 mcg PO QWEEK 07/30/20 [History Last Taken Unknown] gabapentin 600 mg tablet 1,200 mg PO QHS 07/30/20 [History Last Taken Unknown] gabapentin 600 mg tablet 900 mg PO DAILY tab 07/30/20 [History Last Taken Unknown] ferrous sulfate 325 mg (65 mg iron) tablet,delayed release 325 mg PO DAILY 10/22/20 [History Last Taken Unknown] apixaban [Eliquis] 2.5 mg PO BID #30 tab 08/09/21 [Rx Last Taken Unknown] dexamethasone 6 mg PO DAILY 8 Days #12 tab 08/09/21 [Rx Last Taken Unknown] pseudoephedrine-guaifenesin [Mucinex D] 2 tab PO BID #20 tab 08/09/21 [Rx Last Taken Unknown] Allergy/AdvReac Type Severity Reaction Status Date / Time NSAIDS (Non-Steroidal Allergy Swelling Verified 01/13/22 18:45 Anti-Inflamma ketorolac [From Toradol] AdvReac headache Verified 01/13/22 18:45 prednisone AdvReac PT UNSURE Verified 01/13/22 18:45 OF REACTION tramadol AdvReac headache Verified 01/13/22 18:45 Family History Grandfather COPD (chronic obstructive pulmonary disease) Surgical History H/O: hysterectomy Hx of appendectomy Social History household members: none Smoking Status: Current every day smoker tobacco type: cigarettes Tobacco: How many years used: 7 substance use type: does not use Physical Exam Const no apparent distress General Appearance: cooperative Exam Limitations: altered mental status HEENT normocephalic and head/scalp atraumatic Eyes PERRL and EOMs intact bilaterally Neck supple and No nodes Resp normal air movement and clear to auscultation bilaterally Cardio regular rate and regular rhythm GI soft to palpation, non-tender and non-distended Extremity General Extremity: edema Skin Skin Narrative: BLE redness, warmth, swelling Neuro CN's II-XII intact bilaterally Lab / Micro Data Result Diagrams: 01/15/22 04:00 01/15/22 04:00 Labs: Laboratory Results - last 24 hr 01/13/22 20:20: Diff Path Review Reviewed 01/14/22 03:30: Diff Path Review Reviewed 01/14/22 17:35: POC Glucose 183 H 01/14/22 23:16: POC Glucose 168 H 01/15/22 04:00: WBC 20.3 H, RBC 3.98 L, Hgb 11.3 L, Hct 32.4 L, MCV 81.4, MCH 28.4, MCHC 34.9, RDW Std Deviation 38.7, RDW Coeff of Tere 13.0, Plt Count 127 L, MPV 9.7, Immature Gran % (Auto) 1.000 H, Neut % (Auto) 88.9 H, Lymph % (Auto) 5.6 L, [place] % (Auto) 4.4, Eos % (Auto) 0.1, Baso % (Auto) 0.0, Absolute Neuts (auto) 18.0 H, Absolute Lymphs (auto) 1.13, Nucleated RBC % 0, Differential Comment SCANNED, Toxic Vacuolation 2+ 01/15/22 04:00: Sodium 133 L, Potassium 3.0 L, Chloride 98, Carbon Dioxide 26.0, Anion Gap 9, BUN 19 H, Creatinine 0.66, Estim Creat Clear Calc 94.40, Est GFR (MDRD) Af Amer 121, Est GFR (MDRD) Non-Af 100, BUN/Creatinine Ratio 28.7 H, Glucose 135 H, Calcium 8.6 01/15/22 08:29: POC Glucose 137 H 01/15/22 11:36: POC Glucose 162 H Micro: Microbiology 01/13/22 19:45 Urine Catheter - Irvin Urine Culture - Final Presumptive Lactobacillus sp. 01/13/22 20:10 Blood Culture (Wb) - Venous Bacteria Detection (PCR) - Final Streptococcus pyogenes 01/13/22 20:10 Blood Culture (Wb) - Venous Blood Culture - Preliminary Streptococcus pyogenes 01/13/22 20:05 Blood Culture (Wb) - Venous Blood Culture - Preliminary Streptococcus pyogenes
--- NOTE | 2022-01-15 14:08 | CASEMGMT ---
Addendum entered by Su Campos 01/15/22 15:02: LISA spoke w/Roxy Monroe at the [facility]. She confirmed that pt is 100% service connected. She states once pt agrees to SNF, to fax the [facility] and clinical information(H&P, PT, OT, wound notes, IV antibiotic info) to Roxy at [phone], and then let her know which facility pt would like. Roxy states that it then needs approved up in [place] and that will take 1-2 days. LISA explained will first wait to see if pt is agreeable before sending clinical information. LISA will continue to follow. PRIYANKA Marie Original Note: Social Work SW did receive a call back from the [facility] but the message was garbled and could not be understood. LISA called LISA Ramsey Monroe back at the [facility], left another message, will speak w/her once she returns call again. PT/OT are still pending today. PRIYANKA Marie
[2022-01-15 16:55] LABS: Bedside Glucose 207 mg/dL (70-110)
[2022-01-15] MEDS: Cefazolin 2 GM in 0.9% Normal Saline 100 ML IV (21:57)
[2022-01-15] MEDS: 0.9% Saline Lock 10 ML Syringe IV (21:58)
[2022-01-16] VITALS (20 sets, daily range): BP systolic 104–169; BP diastolic 56–106; PULSE 79–105; RESP 16–21; TEMP 36.3–37.1; O2SAT 96–100
[2022-01-16] MEDS: Insulin Lispro 100 UNIT/ML INSULN.PEN SC ×4 (00:32→21:00)
[2022-01-16 00:41] LABS: Bedside Glucose 184 mg/dL (70-110)
[2022-01-16 04:39] LABS: Absolute Lymphocyte Count 1.65 X10^3/uL (0.83-4.51); Absolute Neutrophil Count 14.7 X10^3/uL (2.0-7.7); Basophil# 0.09 X10^3/uL; Basophil% 0.5 % (0-1); Eosinophils% 0.6 % (0-5); Hematocrit 30.8 % (37-47); Hemoglobin 10.6 g/dL (12.0-15.0); Lymphocyte # 1.65 X10^3/ul (0.83-4.51); Lymphocyte % 9.4 % (19-41); Mean Corp Hgb Conc 34.4 g/dL (32-36); Mean Corpuscular Hgb 28.6 pg (27.0-32.0); Mean Corpuscular Volume 83.2 fL (81-99); Mean Platelet Vol. 9.9 fl (6.2-12.0); Monocyte# 0.74 X10^3/uL; Monocyte% 4.2 % (0-10); NRBC Flagged by Analyzer 0 % (0-5); Neutrophil # 14.67 X10^3/uL (2.7-7.7); Neutrophil % 83.1 % (47-70); POSITIVE MORPHOLOGY YES; Platelet Count 123 K/mm3 (150-450); RBC Distribution Width CV 13.2 % (11.6-14.6); White Blood Count 17.6 K/mm3 (4.4-11.0)
[2022-01-16 04:44] LABS: Differential Indicated SCAN CRITERIA MET
[2022-01-16 05:02] LABS: Differential Comment SCANNED; Vacuolated Cells RARE
[2022-01-16 05:06] LABS: Anion Gap 6 (5-15); BUN 13 mg/dL (7-18); BUN/Creat Ratio 26.9 RATIO (10-20); Calcium,Total 7.6 mg/dL (8.5-10.1); Chloride 101 mmol/L (98-107); Creatinine, Serum 0.48 mg/dL (0.55-1.02); EST Glomerular Filtration Rate 143 mL/min (>60); Est Glom Filt Rate - Afr Amer 174 mL/min (>60); Glucose 135 mg/dL (74-106); Potassium 2.7 mmol/L (3.5-5.1); Sodium Level 135 mmol/L (136-145)
[2022-01-16] MEDS: Cefazolin 2 GM in 0.9% Normal Saline 100 ML IV ×3 (06:14→21:36)
[2022-01-16] MEDS: Heparin Injection (Vial) 5,000 UNIT/ML VIAL 5000 UNIT SC ×3 (06:14→21:00)
--- NOTE | 2022-01-16 07:43 | PCM.PN.INT ---
Assessment & Plan Assessment/Plan (1) Cellulitis of left lower leg: (2) Infectious encephalopathy: (3) Wegeners granulomatosis: (4) History of type 1 diabetes mellitus: PLAN: RECOMMENDATIONS: 1. Antibiotics per infectious disease 2. Wound care to evaluate lower extremities 3. Delirium protocol 4. Potassium repletion as indicated 5. Continue aggressive blood sugar control. 6. Hemodynamically stable on room air. Will sign off from a critical care perspective IMPRESSIONS: 1. Septic shock secondary to cellulitis versus UTI Patient was significant erythema of the left greater than right lower extremity. Patient does have bilateral edema with superficial redness. Given patient is only growing Streptococcus, patient will be transitioned to cefazolin. No pressors have been required. Clinical exam not consistent with necrotizing fasciitis. We will hold on aggressive fluid resuscitation given normotensive status. Repeat blood cultures were obtained yesterday. If these are positive, may need work-up for secondary site of infection. Patient does have chronic back pain, but paraspinal abscess would be a concern, along with endocarditis. 2. Acute kidney injury secondary to problem #1 Resolved. Patient with significant improvement in creatinine overnight. Continue with aggressive blood pressure support. Low clinical suspicion for need for pressors. Patient did have significant pyuria. 3. Type 1 diabetes?uncontrolled secondary to problem #1 Patient was significantly elevated blood sugars on multiple hospitalizations. Clinical concern for endogenous steroid given problem #1. We will continue with aggressive insulin therapy as necessary. Blood sugars are well controlled at this time on the current regimen 4. Hypokalemia/hypovolemic hyponatremia Patient did respond to fluid resuscitation. Hold IV fluids for now. Potassium repletion has been ordered. 5. Chronic liver disease/Pastora's granulomatosis/debility Complicates care, management, recovery and prognosis. Patient is a known DNR Comfort Care arrest without intubation. Continue to monitor liver function. Subjective Subjective Patient subjectively feels slightly improved compared to yesterday. Patient has remained hemodynamically stable on room air overnight. Patient continues to have discomfort in erythematous areas. Objective Data Objective Data Vital Signs: Vital Signs Temp Pulse Resp BP Pulse Ox 37.1 C 95 17 167/106 H 97 01/16/22 04:00 01/16/22 06:00 01/16/22 06:00 01/16/22 06:00 01/16/22 06:00 Oxygen Flow Rate (L/min) 2 Oxygen Delivery Method Room Air Weight: 84 kg Body Mass Index (BMI) 30.2 Intake & Output: Intake and Output for Last 24 Hours 01/14/22 01/15/22 01/16/22 23:59 23:59 23:59 Intake Total 2730 / 2730 910 / 1150 350 / 350 Output Total 3600 / 3600 1850 / 2650 1400 / 1400 Balance -870 / -870 -940 / -1500 -1050 / -1050 Lab / Micro Data Result Diagrams: 01/16/22 04:30 01/16/22 04:30 Labs: Laboratory Results - last 24 hr 01/13/22 20:20: Diff Path Review Reviewed 01/14/22 03:30: Diff Path Review Reviewed 01/15/22 08:29: POC Glucose 137 H 01/15/22 11:36: POC Glucose 162 H 01/15/22 16:49: POC Glucose 207 H 01/16/22 00:31: POC Glucose 184 H 01/16/22 04:30: WBC 17.6 H, RBC 3.70 L, Hgb 10.6 L, Hct 30.8 L, MCV 83.2, MCH 28.6, MCHC 34.4, RDW Std Deviation 40.0, RDW Coeff of Tere 13.2, Plt Count 123 L, MPV 9.9, Immature Gran % (Auto) 2.200 H, Neut % (Auto) 83.1 H, Lymph % (Auto) 9.4 L, [place] % (Auto) 4.2, Eos % (Auto) 0.6, Baso % (Auto) 0.5, Absolute Neuts (auto) 14.7 H, Absolute Lymphs (auto) 1.65, Nucleated RBC % 0, Differential Comment SCANNED, Toxic Vacuolation RARE 01/16/22 04:30: Sodium 135 L, Potassium 2.7 L*, Chloride 101, Carbon Dioxide 28.0, Anion Gap 6, BUN 13, Creatinine 0.48 L, Estim Creat Clear Calc 129.80, Est GFR (MDRD) Af Amer 174, Est GFR (MDRD) Non-Af 143, BUN/Creatinine Ratio 26.9 H, Glucose 135 H, Calcium 7.6 L Micro: Microbiology 01/13/22 19:45 Urine Catheter - Irvin Urine Culture - Final Presumptive Lactobacillus sp. 01/13/22 20:10 Blood Culture (Wb) - Venous Bacteria Detection (PCR) - Final Streptococcus pyogenes 01/13/22 20:10 Blood Culture (Wb) - Venous Blood Culture - Preliminary Streptococcus pyogenes 01/13/22 20:05 Blood Culture (Wb) - Venous Blood Culture - Preliminary Streptococcus pyogenes Physical Exam Const alert, oriented x3 and no apparent distress General Appearance: cooperative HEENT normocephalic Mouth: dry mucous membranes Eyes PERRL, EOMs intact bilaterally and conjunctivae normal Neck supple and no JVD Resp normal respiratory effort, no retractions, no use of accessory muscles and clear to auscultation bilaterally Resp Narrative: No dullness to percussion Auscultation: diminished lung sounds; Negative for rales, rhonchi or wheezes Cardio regular rate, regular rhythm, S1 normal heart sound, S2 normal heart sound and no murmurs GI soft to palpation, non-tender and non-distended; Negative for hepatosplenomegaly Extremity no clubbing, cyanosis or edema Skin Skin Narrative: Significant erythema, left greater than right lower extremity. There is some anterior leg superficial ulcerations without exudate, fluctuance or induration. There has been some regression from marked areas on admission. Right groin area appears to be slightly improved on my evaluation. No fluctuance appreciated. Neuro no focal motor deficits and no sensory deficits noted Psych affect normal Appearance: appropriate Charges/Coding Visit Charges Inpatient E&M: 45299 Subs Hosp L2
[2022-01-16] MEDS: Acetaminophen 325 MG Tablet 650 MG PO ×2 (08:03→23:29)
[2022-01-16] MEDS: Potassium Chloride Oral Tablet 20 MEQ 40 MEQ PO (08:04)
[2022-01-16] MEDS: Docusate Sodium 100 MG Capsule PO ×2 (08:04→21:00)
[2022-01-16] MEDS: Famotidine 20 MG Tablet PO ×2 (08:05→21:00)
[2022-01-16] MEDS: Juven (unflavored) Packet 1 PACKET PO (08:05)
[2022-01-16] MEDS: Potassium Chloride 10mEq/100mL 10 MEQ/100 ML IV.SOLN. 100 MEQ IV BOLUS ×4 (08:11→11:53)
--- NOTE | 2022-01-16 10:27 | PCM.PN.ID ---
Physical Exam Narrative Some increased pain in legs. No fever, no n/v/d. Const alert General Appearance: cooperative Resp normal air movement and clear to auscultation bilaterally Cardio regular rate and regular rhythm GI soft to palpation, non-tender and non-distended Skin Skin Narrative: BLE wrapped, worsened redness in R upper medial thigh ID ID: Route of nutrition/ use of supplements: [] Nutritional Intake: [] IV Site: [] Irvin Catheter: [] Assessment & Plan Assessment/Plan (1) Cellulitis of left lower leg: PLAN: Cont cefazolin. Fever resolved. Bcx with GAS. Low suspicion for nec fasc, no sign of gas gangrene on imaging. Worsened redness, will add iv clinda. Will follow, thank you, d/w nursing (2) Infectious encephalopathy:
--- NOTE | 2022-01-16 10:37 | PN.HOSP_ITS ---
Subjective Subjective Feels better than when she came in initially. Antibiotics had to be changed secondary to her strep pyogenous. Appreciate ID assistance Objective Data Objective Data Vital Signs: Vital Signs Temp Pulse Resp BP Pulse Ox 97.8 F 86 20 H 121/68 H 100 01/16/22 08:00 01/16/22 10:00 01/16/22 10:00 01/16/22 10:00 01/16/22 10:00 Oxygen Flow Rate (L/min) 2 Oxygen Delivery Method Room Air Weight: 185 lb 3.013 oz Body Mass Index (BMI) 30.2 Intake & Output: Intake and Output for Last 24 Hours 01/15/22 01/16/22 01/17/22 03:59 03:59 03:59 Intake Total 2580 / 2580 1100 / 1100 210 / 210 Output Total 2850 / 2850 2650 / 2650 600 / 600 Balance -270 / -270 -1550 / -1550 -390 / -390 Lab / Micro Data Result Diagrams: 01/16/22 04:30 01/16/22 04:30 Labs: Laboratory Results - last 24 hr 01/15/22 11:36: POC Glucose 162 H 01/15/22 16:49: POC Glucose 207 H 01/16/22 00:31: POC Glucose 184 H 01/16/22 04:30: WBC 17.6 H, RBC 3.70 L, Hgb 10.6 L, Hct 30.8 L, MCV 83.2, MCH 28.6, MCHC 34.4, RDW Std Deviation 40.0, RDW Coeff of Tere 13.2, Plt Count 123 L, MPV 9.9, Immature Gran % (Auto) 2.200 H, Neut % (Auto) 83.1 H, Lymph % (Auto) 9.4 L, [place] % (Auto) 4.2, Eos % (Auto) 0.6, Baso % (Auto) 0.5, Absolute Neuts (auto) 14.7 H, Absolute Lymphs (auto) 1.65, Nucleated RBC % 0, Differential Comment SCANNED, Toxic Vacuolation RARE 01/16/22 04:30: Sodium 135 L, Potassium 2.7 L*, Chloride 101, Carbon Dioxide 28.0, Anion Gap 6, BUN 13, Creatinine 0.48 L, Estim Creat Clear Calc 129.80, Est GFR (MDRD) Af Amer 174, Est GFR (MDRD) Non-Af 143, BUN/Creatinine Ratio 26.9 H, Glucose 135 H, Calcium 7.6 L Micro: Microbiology 01/13/22 20:05 Blood Culture (Wb) - Venous Blood Culture - Final Streptococcus pyogenes 01/13/22 20:10 Blood Culture (Wb) - Venous Bacteria Detection (PCR) - Final Streptococcus pyogenes 01/13/22 20:10 Blood Culture (Wb) - Venous Blood Culture - Final Streptococcus pyogenes 01/13/22 19:45 Urine Catheter - Irvin Urine Culture - Final Presumptive Lactobacillus sp. Physical Exam Narrative Const alert, oriented x3 and no apparent distress General Appearance: cooperative HEENT normocephalic Mouth: dry mucous membranes Eyes PERRL, EOMs intact bilaterally and conjunctivae normal Neck supple and no JVD Resp normal respiratory effort, no retractions and no use of accessory muscles Auscultation: diminished lung sounds; Negative for crackles, rales, rhonchi or wheezes Cardio regular rate, regular rhythm, S1 normal heart sound, S2 normal heart sound and no murmurs GI soft to palpation, non-tender and non-distended; Negative for hepatosplenomegaly Extremity General Extremity: edema; Negative for clubbing or cyanosis Skin Skin Narrative: Bilateral swelling with ulcerations. Redness is greater on the left than the right. New redness in the right groin Neuro no focal motor deficits and no sensory deficits noted Psych affect normal Appearance: appropriate Assessment & Plan Assessment/Plan (1) Septic shock: (2) Cellulitis of left lower leg: (3) Infectious encephalopathy: (4) Acute hyponatremia: (5) Nicotine dependence, cigarettes, uncomplicated: PLAN: 1. Septic shock likely secondary to lower extremity cellulitis with gram- positive bacteremia/JOHANN/metabolic encephalopathy ?Hypotension has improved systolics are over 100, continue with IV fluids ?Blood cultures with strep pyogenes, repeat cultures are pending ?Continue with Ancef, appreciate ID input ?She does qualify as being immunocompromised secondary to her history of Pastora's granulomatosis ?We will continue to monitor renal function ?Appreciate pocket stitcher assistance 2. DM 1 ?Continue with insulin and Accu-Cheks AC at bedtime ?We will monitor and make adjustments as necessary 3. Pastora's granulomatosis ?She is not on any oxygen at home and does not take any chronic medications for her Pastora's 4. Does have a history of chronic liver disease and hypoalbuminemia which she follows with GI at the [facility], this complicates her care DVT: Heparin Charges/Coding Visit Charges Inpatient E&M: 37377 Subs Hosp L2
[2022-01-16 12:16] LABS: Bedside Glucose 193 mg/dL (70-110)
[2022-01-16] MEDS: Ondansetron 4 MG/2 ML Vial IV (14:24)
[2022-01-16 14:29] LABS: Anion Gap 9 (5-15); BUN 14 mg/dL (7-18); BUN/Creat Ratio 24.5 RATIO (10-20); Calcium,Total 8.4 mg/dL (8.5-10.1); Chloride 101 mmol/L (98-107); Creatinine, Serum 0.57 mg/dL (0.55-1.02); EST Glomerular Filtration Rate 118 mL/min (>60); Est Glom Filt Rate - Afr Amer 143 mL/min (>60); Estimated Creatinine Clearance 109.31 ml/min; Glucose 179 mg/dL (74-106); Potassium 3.6 mmol/L (3.5-5.1); Sodium Level 130 mmol/L (136-145)
[2022-01-16] MEDS: levETIRAcetam 1,000 MG Tablet 1000 MG PO ×2 (15:44→21:00)
[2022-01-16 17:01] LABS: Bedside Glucose 195 mg/dL (70-110)
--- NOTE | 2022-01-16 19:44 | NURSING ---
Pt prior to shift change and prior to this rn taking over care was found by dayshift rn up to bathroom and croft and iv were pulled out by patient at around 1900. Pts croft balloon was noted to still be intact and inflated. Pt set up with purewick and this rn to monitor pt to make sure pt able to urinate after croft removal. Previous shift rn placed new iv. Pt in bed with bed alarm on for pt safety.
[2022-01-16 21:11] LABS: Bedside Glucose 258 mg/dL (70-110)
[2022-01-17] VITALS (10 sets, daily range): BP systolic 109–126; BP diastolic 66–72; PULSE 84–110; RESP 14–18; TEMP 36.7–37; O2SAT 97–100
[2022-01-17] MEDS: Heparin Injection (Vial) 5,000 UNIT/ML VIAL 5000 UNIT SC ×3 (05:03→21:07)
[2022-01-17 05:48] LABS: Absolute Lymphocyte Count 2.63 X10^3/uL (0.83-4.51); Absolute Neutrophil Count 11.5 X10^3/uL (2.0-7.7); Basophil# 0.11 X10^3/uL; Basophil% 0.7 % (0-1); Eosinophil# 0.19 X10^3/uL; Eosinophils% 1.2 % (0-5); Hematocrit 31.3 % (37-47); Hemoglobin 10.7 g/dL (12.0-15.0); Lymphocyte # 2.63 X10^3/ul (0.83-4.51); Lymphocyte % 16.4 % (19-41); Mean Corp Hgb Conc 34.2 g/dL (32-36); Mean Corpuscular Hgb 28.3 pg (27.0-32.0); Mean Corpuscular Volume 82.8 fL (81-99); Mean Platelet Vol. 9.9 fl (6.2-12.0); Monocyte# 0.85 X10^3/uL; Monocyte% 5.3 % (0-10); NRBC Flagged by Analyzer 0 % (0-5); Neutrophil # 11.53 X10^3/uL (2.7-7.7); Neutrophil % 71.7 % (47-70); POSITIVE MORPHOLOGY YES; Platelet Count 135 K/mm3 (150-450); RBC Distribution Width CV 13.2 % (11.6-14.6); RBC Distribution Width SD 40.1 fl (35.1-43.9); Red Blood Count 3.78 M/mm3 (4.2-5.4); White Blood Count 16.1 K/mm3 (4.4-11.0)
[2022-01-17] MEDS: Cefazolin 2 GM in 0.9% Normal Saline 100 ML IV ×3 (05:53→21:30)
[2022-01-17 05:57] LABS: Differential Indicated SCAN CRITERIA MET
[2022-01-17] MEDS: Insulin Lispro 100 UNIT/ML INSULN.PEN SC ×4 (06:04→21:51)
[2022-01-17 06:07] LABS: Anion Gap 5 (5-15); BUN 12 mg/dL (7-18); BUN/Creat Ratio 22.1 RATIO (10-20); Calcium,Total 8.4 mg/dL (8.5-10.1); Chloride 101 mmol/L (98-107); Creatinine, Serum 0.54 mg/dL (0.55-1.02); EST Glomerular Filtration Rate 126 mL/min (>60); Est Glom Filt Rate - Afr Amer 152 mL/min (>60); Estimated Creatinine Clearance 115.38 ml/min; Glucose 174 mg/dL (74-106); Magnesium 1.9 mg/dL (1.6-2.6); Phosphorus 1.3 mg/dL (2.5-4.9); Potassium 3.3 mmol/L (3.5-5.1); Sodium Level 136 mmol/L (136-145)
[2022-01-17 06:40] LABS: Atypical Lymphocyte 2+ %; Differential Comment SCANNED
[2022-01-17 06:41] LABS: Bedside Glucose 188 mg/dL (70-110)
[2022-01-17] MEDS: levETIRAcetam 1,000 MG Tablet 1000 MG PO ×2 (08:31→21:08)
[2022-01-17] MEDS: Docusate Sodium 100 MG Capsule PO ×2 (08:31→21:07)
[2022-01-17] MEDS: Famotidine 20 MG Tablet PO (08:31)
--- NOTE | 2022-01-17 09:55 | WOUNDNOTE ---
wound photo: right lower leg
--- NOTE | 2022-01-17 09:56 | WOUNDNOTE ---
wound photo: left lower leg
--- NOTE | 2022-01-17 09:56 | WOUNDNOTE ---
skin photo: right medial thigh
--- NOTE | 2022-01-17 09:57 | WOUNDNOTE ---
wound photo: left ear
--- NOTE | 2022-01-17 09:58 | WOUNDNOTE ---
wound photo: sacrum
--- NOTE | 2022-01-17 09:59 | PN.HOSP_ITS ---
Subjective Subjective Feels a bit better today than she has when she came in. Her white count is improving as is her cellulitis. She seems little bit more fatigued today and her phosphorus was low currently being replaced Objective Data Objective Data Vital Signs: Vital Signs Temp Pulse Resp BP Pulse Ox 98.4 F 91 16 125/69 H 100 01/17/22 08:30 01/17/22 08:30 01/17/22 08:30 01/17/22 08:30 01/17/22 08:35 Oxygen Flow Rate (L/min) 2 Oxygen Delivery Method Room Air Weight: 189 lb 2.506 oz Body Mass Index (BMI) 30.2 Intake & Output: Intake and Output for Last 24 Hours 01/16/22 01/17/22 01/18/22 03:59 03:59 03:59 Intake Total 1100 / 1100 1738 / 1738 205.67 / 205.67 Output Total 2650 / 2650 1250 / 1250 600 / 600 Balance -1550 / -1550 488 / 488 -394.33 / -394.33 Lab / Micro Data Result Diagrams: 01/17/22 05:14 01/17/22 05:14 Labs: Laboratory Results - last 24 hr 01/16/22 11:27: POC Glucose 193 H 01/16/22 14:05: Sodium 130 L, Potassium 3.6, Chloride 101, Carbon Dioxide 20.0 L , Anion Gap 9, BUN 14, Creatinine 0.57, Estim Creat Clear Calc 109.31, Est GFR (MDRD) Af Amer 143, Est GFR (MDRD) Non-Af 118, BUN/Creatinine Ratio 24.5 H, Glucose 179 H, Calcium 8.4 L 01/16/22 16:43: POC Glucose 195 H 01/16/22 20:56: POC Glucose 258 H 01/17/22 05:14: WBC 16.1 H, RBC 3.78 L, Hgb 10.7 L, Hct 31.3 L, MCV 82.8, MCH 28.3, MCHC 34.2, RDW Std Deviation 40.1, RDW Coeff of Tere 13.2, Plt Count 135 L, MPV 9.9, Immature Gran % (Auto) 4.700 H, Neut % (Auto) 71.7 H, Lymph % (Auto) 16.4 L, [place] % (Auto) 5.3, Eos % (Auto) 1.2, Baso % (Auto) 0.7, Absolute Neuts (auto) 11.5 H, Absolute Lymphs (auto) 2.63, Nucleated RBC % 0, Differential Comment SCANNED, Atypical Lymphocytes 2+ 01/17/22 05:14: Sodium 136, Potassium 3.3 L, Chloride 101, Carbon Dioxide 30.0, Anion Gap 5, BUN 12, Creatinine 0.54 L, Estim Creat Clear Calc 115.38, Est GFR (MDRD) Af Amer 152, Est GFR (MDRD) Non-Af 126, BUN/Creatinine Ratio 22.1 H, Glucose 174 H, Calcium 8.4 L, Phosphorus 1.3 L, Magnesium 1.9 01/17/22 06:02: POC Glucose 188 H Micro: Microbiology 01/13/22 20:05 Blood Culture (Wb) - Venous Blood Culture - Final Streptococcus pyogenes 01/13/22 20:10 Blood Culture (Wb) - Venous Bacteria Detection (PCR) - Final Streptococcus pyogenes 01/13/22 20:10 Blood Culture (Wb) - Venous Blood Culture - Final Streptococcus pyogenes 01/13/22 19:45 Urine Catheter - Irvin Urine Culture - Final Presumptive Lactobacillus sp. Physical Exam Narrative Const alert, oriented x3 and no apparent distress General Appearance: cooperative HEENT normocephalic Mouth: dry mucous membranes Eyes PERRL, EOMs intact bilaterally and conjunctivae normal Neck supple and no JVD Resp normal respiratory effort, no retractions and no use of accessory muscles Auscultation: diminished lung sounds; Negative for crackles, rales, rhonchi or wheezes Cardio regular rate, regular rhythm, S1 normal heart sound, S2 normal heart sound and no murmurs GI soft to palpation, non-tender and non-distended; Negative for hepatosplenomegaly Extremity General Extremity: edema; Negative for clubbing or cyanosis Skin Skin Narrative: Bilateral swelling with ulcerations. Redness is greater on the left than the right. New redness in the right groin, appears to be improving Neuro no focal motor deficits and no sensory deficits noted Psych affect normal Appearance: appropriate Assessment & Plan Assessment/Plan (1) Septic shock: (2) Cellulitis of left lower leg: (3) Infectious encephalopathy: (4) Acute hyponatremia: (5) Nicotine dependence, cigarettes, uncomplicated: PLAN: 1. Septic shock likely secondary to lower extremity cellulitis with strep pyogenes bacteremia/JOHANN/metabolic encephalopathy ?Hypotension has improved systolics are over 100, continue with IV fluids ?Blood cultures with strep pyogenes, repeat cultures are pending ?Continue with Ancef, appreciate ID input, clindamycin was added by ID for slightly worsening redness, no signs of gangrene ?She does qualify as being immunocompromised secondary to her history of Pastora's granulomatosis ?We will continue to monitor renal function ?PT/OT evaluation for discharge planning 2. DM 1 ?Continue with insulin and Accu-Cheks AC at bedtime ?We will monitor and make adjustments as necessary ?We will continue to hold her home insulin until she is eating a diet 3. Pastora's granulomatosis ?She is not on any oxygen at home and does not take any chronic medications for her Pastora's 4. Anxiety/depression ?Stable ?Continue with same alto and hydroxyzine 5. GERD ?Stable ?Continue with PPI 6. Hypothyroidism ?Stable ?Continue with Synthroid 7. Seizure disorder ?Stable ?Continue with Keppra Does have a history of chronic liver disease and hypoalbuminemia which she follows with GI at the [facility], this complicates her care DVT: Heparin Charges/Coding Visit Charges Inpatient E&M: 08630 Subs Hosp L2
--- NOTE | 2022-01-17 12:49 | PCM.PN.ID ---
Physical Exam Narrative Feeling better, but some new nausea, helped by zofran. No fever, legs less sore. Const alert and no apparent distress General Appearance: cooperative Resp normal air movement and clear to auscultation bilaterally Cardio regular rate and regular rhythm GI soft to palpation, non-tender and non-distended Skin Skin Narrative: thigh redness resolved ID ID: Route of nutrition/ use of supplements: [] Nutritional Intake: [] IV Site: [] Irvin Catheter: [] Assessment & Plan Assessment/Plan (1) Cellulitis of left lower leg: PLAN: Cont cefazolin. Fever resolved. JOHANN resolved. Bcx with GAS. Low suspicion for nec fasc, no sign of gas gangrene on imaging. Worsened redness, 01/16 added clinda, now redness much improved. Plan on home with 7-10 days po keflex 500mg tid. Will follow, d/w Dr. Sullivan (2) Infectious encephalopathy:
[2022-01-17] MEDS: 0.9% Saline Lock 10 ML Syringe IV ×2 (13:29→13:55)
[2022-01-17 13:31] LABS: Bedside Glucose 265 mg/dL (70-110)
--- NOTE | 2022-01-17 14:32 | CASEMGMT ---
SW spoke with patient earlier regarding placement. Patient would prefer to go home, but she is not sure. SW called patient's and let him know about therapy notes and wound care. He feels patient will be fine at home. He is with her all of the time. SW spoke with therapy and patient should go to a SNF for rehab. Patient's then came to [facility]. SW met with him, introduced self and role at [facility]. SW told him therapy is recommending patient go somewhere for rehab. Patient was sleeping. He would prefer to talk it over with patient. [facility] before she can [facility] to [facility]. Plan: Undetermined at this time. SW did ask patient's to talk with patient about the plan. Ambreen GARVEY
[2022-01-17 17:06] LABS: Bedside Glucose 232 mg/dL (70-110)
[2022-01-17] MEDS: MELATONIN 3 MG TABLET PO (21:07)
[2022-01-17] MEDS: Gabapentin 600 MG Tablet 1200 MG PO (21:07)
[2022-01-17] MEDS: busPIRone 5 MG Tablet 10 MG PO (21:07)
[2022-01-17 21:51] LABS: Bedside Glucose 237 mg/dL (70-110)
[2022-01-18] VITALS (10 sets, daily range): BP systolic 112–136; BP diastolic 63–94; PULSE 87–118; RESP 14–18; TEMP 36.6–37.1; O2SAT 94–100
[2022-01-18] MEDS: Levothyroxine 100 MCG Tablet 200 MCG PO (05:32)
[2022-01-18] MEDS: Heparin Injection (Vial) 5,000 UNIT/ML VIAL 5000 UNIT SC ×3 (05:33→21:21)
[2022-01-18] MEDS: Cefazolin 2 GM in 0.9% Normal Saline 100 ML IV ×3 (05:33→21:22)
[2022-01-18 06:42] LABS: Hematocrit 30.7 % (37-47); Hemoglobin 10.9 g/dL (12.0-15.0); Mean Corp Hgb Conc 35.5 g/dL (32-36); Mean Corpuscular Hgb 29.2 pg (27.0-32.0); Mean Corpuscular Volume 82.3 fL (81-99); Mean Platelet Vol. 9.6 fl (6.2-12.0); POSITIVE COUNT YES; POSITIVE MORPHOLOGY YES; Platelet Count 148 K/mm3 (150-450); RBC Distribution Width CV 13.3 % (11.6-14.6); RBC Distribution Width SD 39.8 fl (35.1-43.9); Red Blood Count 3.73 M/mm3 (4.2-5.4); White Blood Count 12.5 K/mm3 (4.4-11.0)
[2022-01-18 06:46] LABS: Differential Indicated MANUAL DIFF
[2022-01-18 07:06] LABS: Total Cells Counted 100 (MANUAL DIFF)
[2022-01-18 07:09] LABS: Eosinophil 2 % (0-5); Lymphocyte 21 % (19-41); Metamyelocyte 2 % (0-1); Monocyte 2 % (0-10); Myelocyte 2 % (0-0); Neutrophil-Band 5 % (0-5); Neutrophil-Segmented 66 % (47-70)
[2022-01-18 07:10] LABS: Atypical Lymphocyte 1+ %; Platelet Estimate ADEQUATE (ADEQ)
[2022-01-18 07:11] LABS: Neutrophil # 8.86 X10^3/uL (2.7-7.7); Red Cell Morphology NORM C+C NORMAL (NORM C&C); Toxic Granulation 1+
[2022-01-18 07:12] LABS: Absolute Lymphocyte Count 2.62 X10^3/uL (0.83-4.51); Absolute Neutrophil Count 8.9 X10^3/uL (2.0-7.7); Lymphocyte # 2.62 X10^3/ul (0.83-4.51)
[2022-01-18 07:26] LABS: ALB/GLOB Ratio 0.3 RATIO (0.9-2.4); AST(SGOT) 99 U/L (15-37); Alanine Aminotransfer ALT/SGPT 21 U/L (13-56); Albumin, Serum 1.6 g/dL (3.2-5.0); Alkaline Phosphatase 271 U/L (45-117); Anion Gap 5 (5-15); BUN 8 mg/dL (7-18); BUN/Creat Ratio 14.9 RATIO (10-20); Calcium,Total 7.2 mg/dL (8.5-10.1); Chloride 100 mmol/L (98-107); Creatinine, Serum 0.54 mg/dL (0.55-1.02); EST Glomerular Filtration Rate 128 mL/min (>60); Est Glom Filt Rate - Afr Amer 154 mL/min (>60); Estimated Creatinine Clearance 115.38 ml/min; Globulin 4.8 g/dL (2.2-4.2); Glucose 223 mg/dL (74-106); Phosphorus 3.6 mg/dL (2.5-4.9); Potassium 3.2 mmol/L (3.5-5.1); Protein, Total 6.4 g/dL (6.4-8.2); Sodium Level 136 mmol/L (136-145)
[2022-01-18 08:51] LABS: Bedside Glucose 265 mg/dL (70-110)
[2022-01-18] MEDS: Insulin Lispro 100 UNIT/ML INSULN.PEN SC ×4 (09:38→21:21)
[2022-01-18] MEDS: Ferrous Sulfate 325 MG Tablet PO (09:39)
[2022-01-18] MEDS: Juven (unflavored) Packet 1 PACKET PO ×2 (09:39→17:08)
[2022-01-18] MEDS: busPIRone 5 MG Tablet 10 MG PO ×2 (09:40→21:21)
[2022-01-18] MEDS: DULoxetine Hcl 60 MG Capsule PO (09:40)
[2022-01-18] MEDS: Docusate Sodium 100 MG Capsule PO ×2 (09:40→21:21)
[2022-01-18] MEDS: Pantoprazole Sodium 20 MG Tablet PO (09:41)
[2022-01-18] MEDS: Gabapentin 600 MG Tablet 900 MG PO (09:41)
[2022-01-18] MEDS: levETIRAcetam 1,000 MG Tablet 1000 MG PO ×2 (09:41→21:21)
[2022-01-18] MEDS: Potassium Chloride Oral Tablet 20 MEQ 60 MEQ PO (09:46)
--- NOTE | 2022-01-18 09:53 | PCM.PN.HOSP ---
Subjective Subjective Seems to be doing a bit better, phosphorus is improved. We will give her some potassium today. Still awaiting results of her follow-up blood cultures Objective Data Objective Data Vital Signs: Vital Signs Temp Pulse Resp BP Pulse Ox 98.1 F 102 H 16 133/71 H 100 01/18/22 09:30 01/18/22 09:30 01/18/22 09:30 01/18/22 09:30 01/18/22 09:30 Oxygen Flow Rate (L/min) 2 Oxygen Delivery Method Room Air Weight: 188 lb 14.978 oz Body Mass Index (BMI) 30.2 Intake & Output: Intake and Output for Last 24 Hours 01/17/22 01/18/22 01/19/22 03:59 03:59 03:59 Intake Total 1738 / 1738 2085.3333 / 2085.3333 284 / 284 Output Total 1250 / 1250 600 / 600 Balance 488 / 488 1485.3333 / 1485.3333 284 / 284 Lab / Micro Data Result Diagrams: 01/18/22 06:05 01/18/22 06:05 Labs: Laboratory Results - last 24 hr 01/17/22 13:22: POC Glucose 265 H 01/17/22 16:59: POC Glucose 232 H 01/17/22 21:19: POC Glucose 237 H 01/18/22 06:05: WBC 12.5 H, RBC 3.73 L, Hgb 10.9 L, Hct 30.7 L, MCV 82.3, MCH 29.2, MCHC 35.5, RDW Std Deviation 39.8, RDW Coeff of Tere 13.3, Plt Count 148 L, MPV 9.6, Neut % (Auto) Not Reportable, Absolute Neuts (auto) 8.9 H, Absolute Lymphs (auto) 2.62, Total Counted 100, Neutrophils % (Manual) 66, Band Neutrophils % 5, Lymphocytes % (Manual) 21, Monocytes % (Manual) 2, Eosinophils % (Manual) 2, Metamyelocytes % 2 H, Myelocytes % 2 H, Diff Path Review May foll, Atypical Lymphocytes 1+, Toxic Granulation 1+, Platelet Estimate ADEQUATE, RBC Morphology NORM C+C 01/18/22 06:05: Sodium 136, Potassium 3.2 L, Chloride 100, Carbon Dioxide 31.0, Anion Gap 5, BUN 8, Creatinine 0.54 L, Estim Creat Clear Calc 115.38, Est GFR (MDRD) Af Amer 154, Est GFR (MDRD) Non-Af 128, BUN/Creatinine Ratio 14.9, Glucose 223 H, Calcium 7.2 L, Phosphorus 3.6, Total Bilirubin 1.10 H, AST 99 H, ALT 21, Alkaline Phosphatase 271 H, Total Protein 6.4, Albumin 1.6 L, Globulin 4.8 H, Albumin/Globulin Ratio 0.3 L 01/18/22 08:46: POC Glucose 265 H Micro: Microbiology 01/13/22 20:05 Blood Culture (Wb) - Venous Blood Culture - Final Streptococcus pyogenes 01/13/22 20:10 Blood Culture (Wb) - Venous Bacteria Detection (PCR) - Final Streptococcus pyogenes 01/13/22 20:10 Blood Culture (Wb) - Venous Blood Culture - Final Streptococcus pyogenes 01/13/22 19:45 Urine Catheter - Irvin Urine Culture - Final Presumptive Lactobacillus sp. Physical Exam Narrative Const alert, oriented x3 and no apparent distress General Appearance: cooperative HEENT normocephalic Mouth: Moist mucous membranes Eyes PERRL, EOMs intact bilaterally and conjunctivae normal Neck supple and no JVD Resp normal respiratory effort, no retractions and no use of accessory muscles Auscultation: diminished lung sounds; Negative for crackles, rales, rhonchi or wheezes Cardio regular rate, regular rhythm, S1 normal heart sound, S2 normal heart sound and no murmurs GI soft to palpation, non-tender and non-distended; Negative for hepatosplenomegaly Extremity General Extremity: edema; Negative for clubbing or cyanosis Skin Skin Narrative: Bilateral swelling with ulcerations. Redness is greater on the left than the right. New redness in the right groin, appears to be improving Neuro no focal motor deficits and no sensory deficits noted Psych affect normal Appearance: appropriate Assessment & Plan Assessment/Plan (1) Septic shock: (2) Cellulitis of left lower leg: (3) Infectious encephalopathy: (4) Acute hyponatremia: (5) Nicotine dependence, cigarettes, uncomplicated: PLAN: 1. Septic shock likely secondary to lower extremity cellulitis with strep pyogenes bacteremia/JOHANN/metabolic encephalopathy ?Hypotension has improved systolics are over 100 ?Blood cultures with strep pyogenes, repeat cultures are pending ?Continue with Ancef, appreciate ID input, clindamycin was added by ID for slightly worsening redness, no signs of gangrene ?She does qualify as being immunocompromised secondary to her history of Pastora's granulomatosis ?We will continue to monitor renal function ?PT/OT evaluation for discharge planning 2. DM 1 ?Continue with insulin and Accu-Cheks AC at bedtime ?We will monitor and make adjustments as necessary ?We will continue to hold her home insulin until she is eating a diet 3. Pastora's granulomatosis ?She is not on any oxygen at home and does not take any chronic medications for her Pastora's 4. Anxiety/depression ?Stable ?Continue with same alto and hydroxyzine 5. GERD ?Stable ?Continue with PPI 6. Hypothyroidism ?Stable ?Continue with Synthroid 7. Seizure disorder ?Stable ?Continue with Kepp Does have a history of chronic liver disease and hypoalbuminemia which she follows with GI at the [facility], this complicates her care DVT: Heparin Charges/Coding Visit Charges Inpatient E&M: 72866 Subs Hosp L2
[2022-01-18 13:11] LABS: Bedside Glucose 364 mg/dL (70-110)
--- NOTE | 2022-01-18 15:45 | CM.ED ---
LISA Note Referral Source: ADI JOVEL Referral Reason: Discharge planning SW went to patient's room to discuss discharge planning. Patient said that she needs to talk to her son. LISA advised that we need a plan for patient today. LISA will follow up with patient later. LISA went back to room at 14:21 and PT/OT working with patient. LISA called patient. She said that her first choice is [place] and then her 2nd choice was [facility] as it is closer to [place] than [place]. LISA spoke to E[facility]. Evelia indicated they have beds for patient. LISA will fax referral to [facility] for her review. ADI JOVEL updated. Plan: [place] or [facility]
[2022-01-18 16:40] LABS: Bedside Glucose 358 mg/dL (70-110)
[2022-01-18] MEDS: MELATONIN 3 MG TABLET PO (21:21)
[2022-01-18] MEDS: Gabapentin 600 MG Tablet 1200 MG PO (21:21)
[2022-01-18] MEDS: 0.9% Saline Lock 10 ML Syringe IV (21:22)
[2022-01-18 21:51] LABS: Bedside Glucose 341 mg/dL (70-110)
[2022-01-19] VITALS (8 sets, daily range): BP systolic 110–129; BP diastolic 66–86; PULSE 86–113; RESP 16–18; TEMP 36.2–36.8; O2SAT 94–99
[2022-01-19] MEDS: Heparin Injection (Vial) 5,000 UNIT/ML VIAL 5000 UNIT SC ×3 (05:27→21:31)
[2022-01-19] MEDS: Levothyroxine 100 MCG Tablet 200 MCG PO (05:27)
[2022-01-19 06:41] LABS: Hematocrit 31.3 % (37-47); Hemoglobin 10.4 g/dL (12.0-15.0); Mean Corp Hgb Conc 33.2 g/dL (32-36); Mean Corpuscular Hgb 28.1 pg (27.0-32.0); Mean Corpuscular Volume 84.6 fL (81-99); Mean Platelet Vol. 9.7 fl (6.2-12.0); POSITIVE COUNT YES; POSITIVE MORPHOLOGY YES; Platelet Count 167 K/mm3 (150-450); RBC Distribution Width CV 13.8 % (11.6-14.6); RBC Distribution Width SD 42.7 fl (35.1-43.9); White Blood Count 8.9 K/mm3 (4.4-11.0)
[2022-01-19] MEDS: Cefazolin 2 GM in 0.9% Normal Saline 100 ML IV ×3 (06:42→21:38)
[2022-01-19] MEDS: Insulin Lispro 100 UNIT/ML INSULN.PEN SC ×3 (06:44→16:42)
[2022-01-19 06:46] LABS: Differential Indicated MANUAL DIFF
[2022-01-19 06:56] LABS: Bedside Glucose 294 mg/dL (70-110)
[2022-01-19 07:06] LABS: Anion Gap 4 (5-15); BUN 11 mg/dL (7-18); BUN/Creat Ratio 21.1 RATIO (10-20); Calcium,Total 7.7 mg/dL (8.5-10.1); Chloride 101 mmol/L (98-107); Creatinine, Serum 0.52 mg/dL (0.55-1.02); EST Glomerular Filtration Rate 132 mL/min (>60); Est Glom Filt Rate - Afr Amer 159 mL/min (>60); Estimated Creatinine Clearance 119.82 ml/min; Glucose 255 mg/dL (74-106); Potassium 4.2 mmol/L (3.5-5.1); Sodium Level 135 mmol/L (136-145)
[2022-01-19] MEDS: Ferrous Sulfate 325 MG Tablet PO (08:04)
[2022-01-19 08:20] LABS: Eosinophil 2 % (0-5); Lymphocyte 14 % (19-41); Monocyte 8 % (0-10); Myelocyte 5 % (0-0); Neutrophil-Band 4 % (0-5); Neutrophil-Segmented 67 % (47-70); Platelet Estimate ADEQUATE (ADEQ); Red Cell Morphology NORM C+C NORMAL (NORM C&C); Total Cells Counted 100 (MANUAL DIFF)
[2022-01-19 08:21] LABS: Absolute Lymphocyte Count 1.25 X10^3/uL (0.83-4.51); Absolute Neutrophil Count 6.3 X10^3/uL (2.0-7.7)
[2022-01-19] MEDS: Docusate Sodium 100 MG Capsule PO ×2 (09:14→21:31)
[2022-01-19] MEDS: DULoxetine Hcl 60 MG Capsule PO (09:14)
[2022-01-19] MEDS: Pantoprazole Sodium 20 MG Tablet PO (09:14)
[2022-01-19] MEDS: Gabapentin 600 MG Tablet 900 MG PO (09:14)
[2022-01-19] MEDS: levETIRAcetam 1,000 MG Tablet 1000 MG PO ×2 (09:14→21:31)
[2022-01-19] MEDS: busPIRone 5 MG Tablet 10 MG PO ×2 (09:14→21:31)
--- NOTE | 2022-01-19 10:16 | PCM.PN.HOSP ---
Subjective Subjective Seems much better today, much more alert and states that she feels better. Redness has improved significantly Objective Data Objective Data Vital Signs: Vital Signs Temp Pulse Resp BP Pulse Ox 97.6 F L 96 18 129/78 H 99 01/19/22 09:10 01/19/22 09:10 01/19/22 09:10 01/19/22 09:10 01/19/22 09:10 Oxygen Flow Rate (L/min) 2 Oxygen Delivery Method Room Air Weight: 191 lb 9.307 oz Body Mass Index (BMI) 30.2 Intake & Output: Intake and Output for Last 24 Hours 01/18/22 01/19/22 01/20/22 03:59 03:59 03:59 Intake Total 2085.3333 / 2085.3333 1572.25 / 1572.25 414 / 414 Output Total 600 / 600 700 / 700 Balance 1485.3333 / 1485.3333 1572.25 / 1572.25 -286 / -286 Lab / Micro Data Result Diagrams: 01/19/22 05:27 01/19/22 05:27 Labs: Laboratory Results - last 24 hr 01/18/22 12:23: POC Glucose 364 H 01/18/22 16:25: POC Glucose 358 H 01/18/22 21:18: POC Glucose 341 H 01/19/22 05:27: WBC 8.9, RBC 3.70 L, Hgb 10.4 L, Hct 31.3 L, MCV 84.6, MCH 28.1, MCHC 33.2 D, RDW Std Deviation 42.7, RDW Coeff of Tere 13.8, Plt Count 167, MPV 9.7, Neut % (Auto) Not Reportable, Absolute Neuts (auto) 6.3, Absolute Lymphs (auto) 1.25, Total Counted 100, Neutrophils % (Manual) 67, Band Neutrophils % 4, Lymphocytes % (Manual) 14 L, Monocytes % (Manual) 8, Eosinophils % (Manual) 2, Myelocytes % 5 H, Diff Path Review March, Platelet Estimate ADEQUATE, RBC Morphology NORM C+C 01/19/22 05:27: Sodium 135 L, Potassium 4.2, Chloride 101, Carbon Dioxide 30.0, Anion Gap 4 L, BUN 11, Creatinine 0.52 L, Estim Creat Clear Calc 119.82, Est GFR (MDRD) Af Amer 159, Est GFR (MDRD) Non-Af 132, BUN/Creatinine Ratio 21.1 H, Glucose 255 H, Calcium 7.7 L 01/19/22 06:40: POC Glucose 294 H Micro: Microbiology 01/15/22 16:22 Blood Culture (Wb) - Left Wrist Blood Culture - Preliminary No growth in 48 hours. 01/13/22 20:05 Blood Culture (Wb) - Venous Blood Culture - Final Streptococcus pyogenes 01/13/22 20:10 Blood Culture (Wb) - Venous Bacteria Detection (PCR) - Final Streptococcus pyogenes 01/13/22 20:10 Blood Culture (Wb) - Venous Blood Culture - Final Streptococcus pyogenes 01/13/22 19:45 Urine Catheter - Irvin Urine Culture - Final Presumptive Lactobacillus sp. Physical Exam Narrative Const alert, oriented x3 and no apparent distress General Appearance: cooperative HEENT normocephalic Mouth: Moist mucous membranes Eyes PERRL, EOMs intact bilaterally and conjunctivae normal Neck supple and no JVD Resp normal respiratory effort, no retractions and no use of accessory muscles Auscultation: diminished lung sounds; Negative for crackles, rales, rhonchi or wheezes Cardio regular rate, regular rhythm, S1 normal heart sound, S2 normal heart sound and no murmurs GI soft to palpation, non-tender and non-distended; Negative for hepatosplenomegaly Extremity General Extremity: edema; Negative for clubbing or cyanosis Skin Skin Narrative: Bilateral swelling with ulcerations. Redness is greater on the left than the right. New redness in the right groin, appears to be improving Neuro no focal motor deficits and no sensory deficits noted Psych affect normal Appearance: appropriat Assessment & Plan Assessment/Plan (1) Septic shock: (2) Cellulitis of left lower leg: (3) Infectious encephalopathy: (4) Acute hyponatremia: (5) Nicotine dependence, cigarettes, uncomplicated: PLAN: 1. Septic shock likely secondary to lower extremity cellulitis with strep pyogenes bacteremia/JOHANN/metabolic encephalopathy ?Hypotension has improved systolics are over 100 ?Blood cultures with strep pyogenes, repeat cultures are negative ?Continue with Ancef, appreciate ID input, clindamycin was added by ID for slightly worsening redness, no signs of gangrene ?She does qualify as being immunocompromised secondary to her history of Pastora's granulomatosis ?We will continue to monitor renal function ?PT/OT evaluation for discharge planning 2. DM 1 ?Continue with insulin and Accu-Cheks AC at bedtime ?We will monitor and make adjustments as necessary ?Can start her home insulin 3. Pastora's granulomatosis ?She is not on any oxygen at home and does not take any chronic medications for her Pastora's 4. Anxiety/depression ?Stable ?Continue with same alto and hydroxyzine 5. GERD ?Stable ?Continue with PPI 6. Hypothyroidism ?Stable ?Continue with Synthroid 7. Seizure disorder ?Stable ?Continue with Keppra Does have a history of chronic liver disease and hypoalbuminemia which she follows with GI at the [facility], this complicates her care DVT: Heparin Charges/Coding Visit Charges Inpatient E&M: 29608 Subs Hosp L2
[2022-01-19] MEDS: Insulin Lispro 100 UNIT/ML INSULN.PEN 14 UNIT SC ×2 (10:52→16:41)
[2022-01-19 11:06] LABS: Bedside Glucose 356 mg/dL (70-110)
[2022-01-19] MEDS: Juven (unflavored) Packet 1 PACKET PO (16:40)
[2022-01-19 16:46] LABS: Bedside Glucose 160 mg/dL (70-110)
[2022-01-19] MEDS: MELATONIN 3 MG TABLET PO (21:31)
[2022-01-19] MEDS: Gabapentin 600 MG Tablet 1200 MG PO (21:31)
[2022-01-19] MEDS: Ondansetron 4 MG/2 ML Vial IV (21:33)
[2022-01-19 22:31] LABS: Bedside Glucose 125 mg/dL (70-110)
[2022-01-20] VITALS (9 sets, daily range): BP systolic 106–125; BP diastolic 61–69; PULSE 86–105; RESP 16–18; TEMP 36.2–36.7; O2SAT 93–99
[2022-01-20] MEDS: Levothyroxine 100 MCG Tablet 200 MCG PO (05:24)
[2022-01-20] MEDS: Heparin Injection (Vial) 5,000 UNIT/ML VIAL 5000 UNIT SC ×3 (05:25→21:12)
[2022-01-20] MEDS: Cefazolin 2 GM in 0.9% Normal Saline 100 ML IV ×3 (05:25→21:10)
[2022-01-20 07:13] LABS: Anion Gap 5 (5-15); BUN 9 mg/dL (7-18); BUN/Creat Ratio 19.1 RATIO (10-20); Calcium,Total 7.8 mg/dL (8.5-10.1); Chloride 99 mmol/L (98-107); Creatinine, Serum 0.47 mg/dL (0.55-1.02); EST Glomerular Filtration Rate 148 mL/min (>60); Est Glom Filt Rate - Afr Amer 179 mL/min (>60); Estimated Creatinine Clearance 132.57 ml/min; Glucose 96 mg/dL (74-106); Potassium 3.7 mmol/L (3.5-5.1); Sodium Level 134 mmol/L (136-145)
[2022-01-20 08:11] LABS: Bedside Glucose 99 mg/dL (70-110)
--- NOTE | 2022-01-20 09:14 | CASEMGMT ---
LISA received a call from Evelia with [facility] and they can accept patient. LISA told her we were going to talk with patient to see if she still wants SNF as she walked 130' CG. LISA also told Evelia GONZALEZ has to get approval from the [facility] and they are closed today. Ambreen Alanis MSW GURU
[2022-01-20] MEDS: busPIRone 5 MG Tablet 10 MG PO ×2 (09:18→21:11)
[2022-01-20] MEDS: Ferrous Sulfate 325 MG Tablet PO (09:18)
[2022-01-20] MEDS: Docusate Sodium 100 MG Capsule PO ×2 (09:18→21:11)
[2022-01-20] MEDS: DULoxetine Hcl 60 MG Capsule PO (09:19)
[2022-01-20] MEDS: levETIRAcetam 1,000 MG Tablet 1000 MG PO ×2 (09:19→21:11)
[2022-01-20] MEDS: Pantoprazole Sodium 20 MG Tablet PO (09:19)
[2022-01-20] MEDS: Gabapentin 600 MG Tablet 900 MG PO (09:19)
[2022-01-20] MEDS: Insulin Lispro 100 UNIT/ML INSULN.PEN 14 UNIT SC ×2 (09:22→17:17)
[2022-01-20] MEDS: 0.9% Saline Lock 10 ML Syringe IV ×2 (09:23→14:29)
--- NOTE | 2022-01-20 11:00 | WOUNDNOTE ---
wound photo: left lower leg
--- NOTE | 2022-01-20 11:01 | WOUNDNOTE ---
wound photo: left lateral lower leg/ankle
--- NOTE | 2022-01-20 11:01 | WOUNDNOTE ---
wound photo: right lower leg
[2022-01-20 11:26] LABS: Bedside Glucose 128 mg/dL (70-110)
--- NOTE | 2022-01-20 12:10 | PN.HOSP_ITS ---
Documented by User: Cornelio MUÑOZ 01/20/22 12:29 Subjective Subjective Patient is a 51-year-old female comfortably sitting in a chair, alert and orient x3. Patient denies development of any new symptoms overnight. Does not appear in acute distress. Objective Data Objective Data Vital Signs: Vital Signs Temp Pulse Resp BP Pulse Ox 97.7 F L 105 H 18 108/61 99 01/20/22 09:10 01/20/22 11:00 01/20/22 09:10 01/20/22 09:10 01/20/22 09:10 Oxygen Flow Rate (L/min) 2 Oxygen Delivery Method Room Air Weight: 191 lb 2.252 oz Body Mass Index (BMI) 30.2 Intake & Output: Intake and Output for Last 24 Hours 01/18/22 01/19/22 01/20/22 23:59 23:59 23:59 Intake Total 1812.25 / 1812.25 1642 / 1882 764 / 764 Output Total 700 / 700 Balance 1812.25 / 1812.25 942 / 1182 764 / 764 Lab / Micro Data Result Diagrams: 01/19/22 05:27 01/20/22 05:46 Labs: Laboratory Results - last 24 hr 01/19/22 16:39: POC Glucose 160 H 01/19/22 21:28: POC Glucose 125 H 01/20/22 05:46: Sodium 134 L, Potassium 3.7, Chloride 99, Carbon Dioxide 30.0, Anion Gap 5, BUN 9, Creatinine 0.47 L, Estim Creat Clear Calc 132.57, Est GFR (MDRD) Af Amer 179, Est GFR (MDRD) Non-Af 148, BUN/Creatinine Ratio 19.1, Glucose 96, Calcium 7.8 L 01/20/22 08:05: POC Glucose 99 01/20/22 11:22: POC Glucose 128 H Micro: Microbiology 01/15/22 16:22 Blood Culture (Wb) - Left Wrist Blood Culture - Preliminary No growth in 48 hours. 01/13/22 20:05 Blood Culture (Wb) - Venous Blood Culture - Final Streptococcus pyogenes 01/13/22 20:10 Blood Culture (Wb) - Venous Bacteria Detection (PCR) - Final Streptococcus pyogenes 01/13/22 20:10 Blood Culture (Wb) - Venous Blood Culture - Final Streptococcus pyogenes 01/13/22 19:45 Urine Catheter - Irvin Urine Culture - Final Presumptive Lactobacillus sp. Physical Exam Const alert, oriented x3 and no apparent distress HEENT head/scalp atraumatic and moist oral mucous membranes Head and Scalp: normocephalic Eyes PERRL and conjunctivae normal Neck no lymphadenopathy, supple and no JVD Resp normal respiratory effort, no retractions and no use of accessory muscles Cardio regular rate, regular rhythm and no JVD GI normal to inspection, nondistended, normoactive bowel sounds Extremity Extremity Narrative: Lower extremities and Nba wraps bilaterally. Skin no rashes or lesions noted Neuro CN's II-XII intact bilaterally Psych affect normal Assessment & Plan Assessment/Plan (1) Infectious encephalopathy: (2) Cellulitis of left lower leg: (3) Sinus tachycardia: (4) Septic shock: (5) Acute hyponatremia: PLAN: Day 7 Discharge planning: Discharge to SNF pending insurance approval. 1) lower extremity cellulitis with bacteremia Blood cultures from 01/13 demonstrated Streptococcus pyogenes, with sensitivities to cefazolin. Repeat blood cultures demonstrate no growth. 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 ID following, continue with Ancef, discharged home on Keflex when ready. 2) DM 1 Blood sugars are controlled. Continue home Lantus and lispro, Accu-Cheks with sliding scale insulin ordered. 3) Pastora's granulomatosis Not on any chronic medications, does complicate #1. 4) depression/anxiety Continue with Cymbalta and hydroxyzine. 5) GERD Continue PPI. 6) hypothyroidism Continue Synthroid. 7) history of seizures Continue Keppra. 8) chronic liver disease Follows with GI doctor at [facility]. DVT prophylaxis - Heparin Patient seen by Cornelio Echeverria PA-C, under the supervision of Dr. Hernandez. Time spent on patient care: 10 Minutes. Documented by User: Dr. Louis Hernandez MD 01/20/22 13:20 Objective Data Lab / Micro Data Result Diagrams: 01/19/22 05:27 01/20/22 05:46 Assessment & Plan Addt'l Comments This patient was seen in conjunction with Cornelio Echeverria PA-C. I have independently interviewed and examined the patient and reviewed pertinent historical, laboratory, and other data. Please refer to Cornelio Echeverria PA-C's note for details of this patient's presentation, findings, and recommendations. I have reviewed Cornelio Echeverria PA-C's note and concur with documented findings. In brief, patient is a 51-year-old lady with history of granulomatosis with polyangiitis (Pastora's granulomatosis) who presented with bilateral lower extremity swelling and assessment of cellulitis involving both lower extremities made admitted to monitored bed for further management Physical Examination: GENERAL: cooperative HEENT: Atraumatic; EYES; Anicteric, Normal Conjunctiva NECK; supple, normal thyroid, RESPIRATORY: Diminished to auscultation CARDIOVASCULAR: Regular S1 S2, GI: soft, normoactive bowel sounds, : No Renal angle tenderness; EXTREMITIES: Both lower extremities and Nba wrap MUSCULOSKELETAL: no muscle wasting NEURO: Awake; no lateralizing signs. SKIN: No Rash PSYCH; Flat affect Assessment: 1. Septic shock secondary to bilateral lower extremity cellulitis and UTI (resolved 2. Bilateral lower extremity cellulitis 3. Acute cystitis 4. Acute kidney injury 5. Granulomatosis with polyangiitis 6. Hypokalemia 7. Hyponatremia 8. Diabetes mellitus type 1 9. Chronic liver disease 10. Seizure disorder 11. Hypothyroidism 12. Depression with anxiety Recommendations: 1. I have discussed the results of my overview and impressions with the patient 2. Options for management were reviewed Total time spent by myself and the advanced practice practitioner evaluating patient, reviewing labs, subsequent management decisions, discussion with patient as well as other providers 40 minutes ( 25 of which was spent by myself) Charges/Coding Visit Charges Inpatient E&M: 76263 Subs Hosp L2
--- NOTE | 2022-01-20 14:03 | PCM.PN.ID ---
Physical Exam Narrative Feeling better, no fever, some nausea Const alert and no apparent distress General Appearance: cooperative Resp normal air movement and clear to auscultation bilaterally Cardio regular rate and regular rhythm GI soft to palpation, non-tender and non-distended Extremity General Extremity: edema Skin Skin Narrative: Much improved redness ID ID: Route of nutrition/ use of supplements: [] Nutritional Intake: [] IV Site: [] Irvin Catheter: [] Assessment & Plan Assessment/Plan (1) Cellulitis of left lower leg: PLAN: Cont cefazolin. Fever resolved. JOHANN resolved. Bcx with GAS. Low suspicion for nec fasc, no sign of gas gangrene on imaging. Worsened redness, 01/16 added clinda, now redness much improved. Will stop clinda. Plan on d/c tomorrow with 4 more days po keflex 500mg tid. Will follow as needed, d/w Dr. Sullivan (2) Infectious encephalopathy:
[2022-01-20 14:06] LABS: Bedside Glucose 114 mg/dL (70-110)
[2022-01-20 14:10] LABS: Pathologist Review Reviewed
[2022-01-20 14:14] LABS: Pathologist Review Reviewed
--- NOTE | 2022-01-20 14:22 | CASEMGMT ---
LISA spoke with patient this am and confirmed she does want to go to [place]. LISA let patient know [place] can take her, but [facility] needs to get approval from the [facility]. L[facility] explained the [facility] is closed today so she will not go today. LISA has all documents necessary for approval by the [facility]. LISA will fax them first thing in the am. Plan: [place] pending [facility] approval. Ambreen GARVEY
[2022-01-20] MEDS: Ondansetron 4 MG/2 ML Vial IV (14:29)
[2022-01-20] MEDS: cycloBENZAPRine HCl 10 MG Tablet PO ×2 (15:24→21:18)
[2022-01-20 16:41] LABS: Bedside Glucose 178 mg/dL (70-110)
[2022-01-20] MEDS: Insulin Lispro 100 UNIT/ML INSULN.PEN SC (17:17)
[2022-01-20] MEDS: MELATONIN 3 MG TABLET PO (21:11)
[2022-01-20] MEDS: Gabapentin 600 MG Tablet 1200 MG PO (21:15)
[2022-01-20 21:45] LABS: Bedside Glucose 93 mg/dL (70-110)
[2022-01-21] VITALS (13 sets, daily range): BP systolic 118–135; BP diastolic 66–86; PULSE 72–94; RESP 14–16; TEMP 36.3–37.1; O2SAT 92–96
[2022-01-21] MEDS: Cefazolin 2 GM in 0.9% Normal Saline 100 ML IV ×3 (05:11→22:33)
[2022-01-21] MEDS: Levothyroxine 100 MCG Tablet 200 MCG PO (05:12)
[2022-01-21] MEDS: Heparin Injection (Vial) 5,000 UNIT/ML VIAL 5000 UNIT SC ×3 (05:12→22:23)
[2022-01-21] MEDS: cycloBENZAPRine HCl 10 MG Tablet PO ×3 (05:12→22:28)
[2022-01-21 06:09] LABS: Hematocrit 29.3 % (37-47); Hemoglobin 9.9 g/dL (12.0-15.0); Mean Corp Hgb Conc 33.8 g/dL (32-36); Mean Corpuscular Hgb 29.1 pg (27.0-32.0); Mean Corpuscular Volume 86.2 fL (81-99); Mean Platelet Vol. 9.3 fl (6.2-12.0); POSITIVE COUNT YES; POSITIVE MORPHOLOGY YES; Platelet Count 185 K/mm3 (150-450); RBC Distribution Width CV 14.4 % (11.6-14.6); RBC Distribution Width SD 43.8 fl (35.1-43.9); White Blood Count 9.5 K/mm3 (4.4-11.0)
[2022-01-21 06:13] LABS: Differential Indicated MANUAL DIFF
[2022-01-21 06:35] LABS: Absolute Lymphocyte Count 2.18 X10^3/uL (0.83-4.51); Lymphocyte 23 % (19-41); Metamyelocyte 1 % (0-1); Monocyte 7 % (0-10); Myelocyte 6 % (0-0); Neutrophil-Band 5 % (0-5); Neutrophil-Segmented 58 % (47-70); Platelet Estimate ADEQUATE (ADEQ); Red Cell Morphology NORM C+C NORMAL (NORM C&C); Total Cells Counted 100 (MANUAL DIFF)
[2022-01-21 06:37] LABS: Anion Gap 4 (5-15); BUN 7 mg/dL (7-18); BUN/Creat Ratio 13.8 RATIO (10-20); Calcium,Total 7.8 mg/dL (8.5-10.1); Chloride 101 mmol/L (98-107); Creatinine, Serum 0.51 mg/dL (0.55-1.02); EST Glomerular Filtration Rate 136 mL/min (>60); Est Glom Filt Rate - Afr Amer 164 mL/min (>60); Estimated Creatinine Clearance 122.17 ml/min; Glucose 119 mg/dL (74-106); Potassium 3.9 mmol/L (3.5-5.1); Sodium Level 135 mmol/L (136-145)
[2022-01-21 07:41] LABS: Bedside Glucose 129 mg/dL (70-110)
--- NOTE | 2022-01-21 08:09 | CASEMGMT ---
Addendum entered by Ambreen Alanis 01/21/22 08:45: LISA received e-mail from LISA Ramsey at [place] and she received LISA's fax. Roxy will enter her portion, the nurse has a piece to complete, and the physician has to sign GEC. All information is then faxed to [facility] and a reviewer will approve or deny request for SNF. Per Roxy this can take 24-48 hours. Plan: [facility] pending pre-cert from [place]. Ambreen GARVEY Original Note: LISA faxed clinicals and GEC to LISA Pink at [place] to obtain pre-cert for SNF. Ambreen GARVEY
[2022-01-21] MEDS: Juven (unflavored) Packet 1 PACKET PO ×2 (08:47→16:55)
[2022-01-21] MEDS: Docusate Sodium 100 MG Capsule PO ×2 (08:47→22:28)
[2022-01-21] MEDS: busPIRone 5 MG Tablet 10 MG PO ×2 (08:47→22:28)
[2022-01-21] MEDS: DULoxetine Hcl 60 MG Capsule PO (08:48)
[2022-01-21] MEDS: Gabapentin 600 MG Tablet 900 MG PO (08:48)
[2022-01-21] MEDS: Ferrous Sulfate 325 MG Tablet PO (08:48)
[2022-01-21] MEDS: Pantoprazole Sodium 20 MG Tablet PO (08:48)
[2022-01-21] MEDS: levETIRAcetam 1,000 MG Tablet 1000 MG PO ×2 (08:49→22:28)
[2022-01-21] MEDS: Insulin Lispro 100 UNIT/ML INSULN.PEN 14 UNIT SC ×3 (08:51→16:55)
--- NOTE | 2022-01-21 09:09 | WOUNDNOTE ---
wound photo: sacrum
[2022-01-21] MEDS: Insulin Lispro 100 UNIT/ML INSULN.PEN SC ×2 (10:58→22:18)
[2022-01-21 11:15] LABS: Bedside Glucose 204 mg/dL (70-110)
--- NOTE | 2022-01-21 11:30 | PN.HOSP_ITS ---
Documented by User: Cornelio MUÑOZ 01/21/22 11:36 Subjective Subjective Patient is a 51-year-old female comfortably sitting in a chair, alert and orient x3. Patient denies development of any new symptoms overnight. Does not appear in acute distress. Objective Data Objective Data Vital Signs: Vital Signs Temp Pulse Resp BP Pulse Ox 97.5 F L 90 16 131/75 H 96 01/21/22 09:00 01/21/22 09:07 01/21/22 09:07 01/21/22 09:00 01/21/22 09:07 Oxygen Flow Rate (L/min) 2 Oxygen Delivery Method Room Air Weight: 191 lb 9.307 oz Body Mass Index (BMI) 30.2 Intake & Output: Intake and Output for Last 24 Hours 01/19/22 01/20/22 01/21/22 23:59 23:59 23:59 Intake Total 1642 / 1882 1584 / 1584 230 / 230 Output Total 700 / 700 Balance 942 / 1182 1584 / 1584 230 / 230 Lab / Micro Data Result Diagrams: 01/21/22 05:51 01/21/22 05:51 Labs: Laboratory Results - last 24 hr 01/18/22 06:05: Diff Path Review Reviewed 01/19/22 05:27: Diff Path Review Reviewed 01/20/22 14:03: POC Glucose 114 H 01/20/22 16:34: POC Glucose 178 H 01/20/22 21:09: POC Glucose 93 01/21/22 05:51: WBC 9.5, RBC 3.40 L, Hgb 9.9 L, Hct 29.3 L, MCV 86.2, MCH 29.1, MCHC 33.8, RDW Std Deviation 43.8, RDW Coeff of Tere 14.4, Plt Count 185, MPV 9.3, Neut % (Auto) Not Reportable, Absolute Neuts (auto) 6.0, Absolute Lymphs (auto) 2.18, Total Counted 100, Neutrophils % (Manual) 58, Band Neutrophils % 5, Lymphocytes % (Manual) 23, Monocytes % (Manual) 7, Metamyelocytes % 1, Myelocytes % 6 H, Diff Path Review May , Platelet Estimate ADEQUATE, RBC Morphology NORM C+C 01/21/22 05:51: Sodium 135 L, Potassium 3.9, Chloride 101, Carbon Dioxide 30.0, Anion Gap 4 L, BUN 7, Creatinine 0.51 L, Estim Creat Clear Calc 122.17, Est GFR (MDRD) Af Amer 164, Est GFR (MDRD) Non-Af 136, BUN/Creatinine Ratio 13.8, Glucose 119 H, Calcium 7.8 L 01/21/22 07:33: POC Glucose 129 H 01/21/22 10:55: POC Glucose 204 H Micro: Microbiology 01/15/22 16:22 Blood Culture (Wb) - Left Wrist Blood Culture - Final No growth in 5 days. 01/13/22 20:05 Blood Culture (Wb) - Venous Blood Culture - Final Streptococcus pyogenes 01/13/22 20:10 Blood Culture (Wb) - Venous Bacteria Detection (PCR) - Final Streptococcus pyogenes 01/13/22 20:10 Blood Culture (Wb) - Venous Blood Culture - Final Streptococcus pyogenes 01/13/22 19:45 Urine Catheter - Irvin Urine Culture - Final Presumptive Lactobacillus sp. Physical Exam Const alert, oriented x3 and no apparent distress HEENT head/scalp atraumatic Head and Scalp: normocephalic Eyes PERRL and conjunctivae normal Neck no lymphadenopathy, supple and no JVD Resp normal respiratory effort, no retractions and no use of accessory muscles Cardio regular rate, regular rhythm and no JVD GI normal to inspection, nondistended, normoactive bowel sounds Extremity Extremity Narrative: Nba wraps applied to the lower extremities bilaterally. Skin no rashes or lesions noted, no wounds and skin turgor normal Neuro CN's II-XII intact bilaterally Psych affect normal Assessment & Plan Assessment/Plan (1) Infectious encephalopathy: (2) Cellulitis of left lower leg: (3) Sinus tachycardia: (4) Septic shock: PLAN: Day 8 Discharge planning: Discharge to SNF pending insurance approval. 1) lower extremity cellulitis with bacteremia Blood cultures from 01/13 demonstrated Streptococcus pyogenes, with sensitivities to cefazolin. Repeat blood cultures demonstrate no growth. 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 ID following, continue with Ancef, discharged home on Keflex when ready. 2) DM 1 Blood sugars are controlled. Continue home Lantus and lispro, Accu-Cheks with sliding scale insulin ordered. 3) Pastora's granulomatosis Not on any chronic medications, does complicate #1. 4) depression/anxiety Continue with Cymbalta and hydroxyzine. 5) GERD Continue PPI. 6) hypothyroidism Continue Synthroid. 7) history of seizures Continue Keppra. 8) chronic liver disease Follows with GI doctor at [facility]. DVT prophylaxis - Heparin Patient seen by Cornelio Echeverria PA-C, under the supervision of Dr. Hernandez. Documented by User: Dr. Louis Hernandez MD 01/21/22 12:53 Objective Data Lab / Micro Data Result Diagrams: 01/21/22 05:51 01/21/22 05:51 Assessment & Plan Addt'l Comments This patient was seen in conjunction with Cornelio Echeverria PA-C. I have independently interviewed and examined the patient and reviewed pertinent historical, laboratory, and other data. Please refer to Cornelio Echeverria PA-C's note for details of this patient's presentation, findings, and recommendations. I have reviewed Cornelio Echeverria PA-C's note and concur with documented findings. In brief, patient is a 51-year-old lady with history of granulomatosis with polyangiitis (Pastora's granulomatosis) who presented with bilateral lower extremity swelling and assessment of cellulitis involving both lower extremities made admitted to monitored bed for further management 01/21/2022; patient seen the erythema and warmth involving both lower extremities improving. Awaiting transfer to group home facility Physical Examination: GENERAL: cooperative HEENT: Atraumatic; EYES; Anicteric, Normal Conjunctiva NECK; supple, normal thyroid, RESPIRATORY: Diminished to auscultation CARDIOVASCULAR: Regular S1 S2, GI: soft, normoactive bowel sounds, : No Renal angle tenderness; EXTREMITIES: Both lower extremities and Nba wrap MUSCULOSKELETAL: no muscle wasting NEURO: Awake; no lateralizing signs. SKIN: No Rash PSYCH; Flat affect Assessment: 1. Septic shock secondary to bilateral lower extremity cellulitis and UTI (resolved 2. Bilateral lower extremity cellulitis 3. Acute cystitis 4. Acute kidney injury 5. Granulomatosis with polyangiitis 6. Hypokalemia 7. Hyponatremia 8. Diabetes mellitus type 1 9. Chronic liver disease 10. Seizure disorder 11. Hypothyroidism 12. Depression with anxiety Recommendations: 1. I have discussed the results of my overview and impressions with the patient 2. Options for management were reviewed Total time spent by myself and the advanced practice practitioner evaluating patient, reviewing labs, subsequent management decisions, discussion with patient as well as other providers 35 minutes ( 20 of which was spent by myself) Charges/Coding Visit Charges Inpatient E&M: 13716 Subs Hosp L2
[2022-01-21] MEDS: Acetaminophen 325 MG Tablet 650 MG PO (12:24)
[2022-01-21] MEDS: 0.9% Saline Lock 10 ML Syringe IV ×2 (13:35→21:31)
[2022-01-21 15:21] LABS: Pathologist Review Reviewed
[2022-01-21 18:07] LABS: Bedside Glucose 88 mg/dL (70-110)
[2022-01-21] MEDS: Gabapentin 600 MG Tablet 1200 MG PO (22:28)
[2022-01-21] MEDS: MELATONIN 3 MG TABLET PO (22:32)
[2022-01-22] VITALS (9 sets, daily range): BP systolic 114–133; BP diastolic 74–77; PULSE 84–90; RESP 16; TEMP 36.2–37.1; O2SAT 91–95
[2022-01-22 02:23] LABS: Bedside Glucose 192 mg/dL (70-110)
[2022-01-22] MEDS: Cefazolin 2 GM in 0.9% Normal Saline 100 ML IV ×2 (05:30→13:55)
[2022-01-22] MEDS: Heparin Injection (Vial) 5,000 UNIT/ML VIAL 5000 UNIT SC ×2 (05:33→13:55)
[2022-01-22] MEDS: Levothyroxine 100 MCG Tablet 200 MCG PO (05:35)
[2022-01-22] MEDS: cycloBENZAPRine HCl 10 MG Tablet PO ×2 (05:35→13:50)
[2022-01-22] MEDS: Ondansetron 4 MG/2 ML Vial IV ×2 (05:45→13:55)
[2022-01-22 06:53] LABS: Absolute Lymphocyte Count 3.01 X10^3/uL (0.83-4.51); Absolute Neutrophil Count 4.4 X10^3/uL (2.0-7.7); Basophil# 0.06 X10^3/uL; Basophil% 0.7 % (0-1); Eosinophil# 0.14 X10^3/uL; Eosinophils% 1.6 % (0-5); Hematocrit 31.6 % (37-47); Hemoglobin 10.5 g/dL (12.0-15.0); Lymphocyte # 3.01 X10^3/ul (0.83-4.51); Lymphocyte % 33.7 % (19-41); Mean Corp Hgb Conc 33.2 g/dL (32-36); Mean Corpuscular Hgb 28.6 pg (27.0-32.0); Mean Corpuscular Volume 86.1 fL (81-99); Mean Platelet Vol. 9.2 fl (6.2-12.0); Monocyte# 0.89 X10^3/uL; NRBC Flagged by Analyzer 0 % (0-5); Neutrophil # 4.41 X10^3/uL (2.7-7.7); Neutrophil % 49.4 % (47-70); Platelet Count 202 K/mm3 (150-450); RBC Distribution Width CV 15.1 % (11.6-14.6); RBC Distribution Width SD 44.4 fl (35.1-43.9); Red Blood Count 3.67 M/mm3 (4.2-5.4); White Blood Count 8.9 K/mm3 (4.4-11.0)
[2022-01-22 07:15] LABS: Anion Gap 2 (5-15); BUN 10 mg/dL (7-18); BUN/Creat Ratio 16.1 RATIO (10-20); Calcium,Total 8.2 mg/dL (8.5-10.1); Chloride 101 mmol/L (98-107); Creatinine, Serum 0.62 mg/dL (0.55-1.02); EST Glomerular Filtration Rate 108 mL/min (>60); Est Glom Filt Rate - Afr Amer 130 mL/min (>60); Estimated Creatinine Clearance 100.49 ml/min; Glucose 102 mg/dL (74-106); Sodium Level 137 mmol/L (136-145)
--- NOTE | 2022-01-22 07:16 | CASEMGMT ---
LISA received a voice mail from LISA Ramsey at [place]. Patient was approved to go to [place]. LISA will notify patient and physician. Plan: d/c to [place] under skilled level of care under [facility] benefit. Ambreen GARVEY
[2022-01-22] MEDS: Ferrous Sulfate 325 MG Tablet PO (09:09)
[2022-01-22] MEDS: busPIRone 5 MG Tablet 10 MG PO (09:09)
[2022-01-22] MEDS: Juven (unflavored) Packet 1 PACKET PO (09:09)
[2022-01-22] MEDS: Docusate Sodium 100 MG Capsule PO (09:10)
[2022-01-22] MEDS: Gabapentin 600 MG Tablet 900 MG PO (09:10)
[2022-01-22] MEDS: levETIRAcetam 1,000 MG Tablet 1000 MG PO (09:11)
[2022-01-22] MEDS: DULoxetine Hcl 60 MG Capsule PO (09:11)
[2022-01-22] MEDS: Pantoprazole Sodium 20 MG Tablet PO (09:11)
[2022-01-22 09:21] LABS: Bedside Glucose 92 mg/dL (70-110)
[2022-01-22] MEDS: Insulin Lispro 100 UNIT/ML INSULN.PEN 14 UNIT SC ×2 (09:22→13:46)
--- NOTE | 2022-01-22 10:45 | TREXTCAR_ITS ---
Diet 01/14/22 12:03 Diet: Regular - General Food consistency:: Regular Liquid Consistency:: Regular/Thin Is pt able to select menu?: No Wound(s) coccyx: Wound Type: Pressure Injury Dressing Change: Mepilex left buttock: Wound Type: Pressure Injury Dressing Change: Mepilex right lateral leg: Wound Type: small dry abrasion Dressing Change: Dry Sterile Dressing left anterior lower leg: Wound Type: Superficial thin scabbed areas Dressing Change: Dry Sterile Dressing left ear: Wound Type: Pressure Injury left heel: Wound Type: various semi-open areas Dressing Change: Adaptic Therapies Physical Therapy: Eval and Treat Occupational Therapy: Eval and Treat Problem/Diagnosis (1) Infectious encephalopathy: Status: Acute (2) Cellulitis of left lower leg: Status: Acute (3) Sinus tachycardia: Status: Acute (4) Septic shock: Status: Acute Allergies/Procedures Done in Hospital Allergies NSAIDS (Non-Steroidal Anti-Inflamma Allergy (Verified 01/13/22 18:45) Swelling ketorolac [From Toradol] Adverse Reaction (Verified 01/13/22 18:45) headache prednisone Adverse Reaction (Verified 01/13/22 18:45) PT UNSURE OF REACTION Severely elevated blood sugars (this was not a reaction option to choose) tramadol Adverse Reaction (Verified 01/13/22 18:45) headache Type of Care/Length of Stay Estimated LOS: Convalescent Care Less Than 30 days Type of Care Needed: Skilled Rehab Potential: Good Prognosis: Good Additional Orders/Day of Discharge Day of Discharge: 01/22/22 Dietary and Speech Recommendations Dietitian Recommendations/Changes: Continue liberalize Regular given poor PO intake at meals and ongoing poor appetite. Continue Cecilio BID w/ medpass. Will add Glucerna Shake TID w/ medpass. Discharge Plan Admission Admit Date/Time: 01/13/22 21:26 Primary Reason for Your Visit: Confusion Attending Provider: Louis Hernandez Primary Care Provider: [facility] Consulting Providers: Lisandro Otoole ; Donaldo Hernandez ; Geremias Samuels ; Svetlana Garcia CERTIFIED MEDICATION AIDE Discharge Orders/Prescriptions Prescriptions: New cephalexin 500 mg capsule 500 mg PO TID Qty: 12 RF: 0 Continued cholecalciferol (vitamin D3) 1,250 mcg (50,000 unit) capsule 1,250 mcg PO QWEEK RF: 0 gabapentin 600 mg tablet 1,200 mg PO QHS RF: 0 gabapentin 600 mg tablet 900 mg PO DAILY RF: 0 ferrous sulfate 325 mg (65 mg iron) tablet,delayed release (DR/EC) 325 mg PO DAILY RF: 0 levothyroxine 200 MCG tablet 200 mcg PO DAILY RF: 0 levetiracetam 500 MG tablet 1,000 mg PO BID RF: 0 insulin lispro 100 UNIT/ML insulin pen 14 unit SC TIDCM RF: 0 insulin glargine 100 UNITS/ML insulin pen 45 units SC QHS RF: 0 pseudoephedrine-guaifenesin [Mucinex D] 60-600 mg tablet extended release 12 hr 2 tab PO BID Qty: 20 RF: 0 cyclobenzaprine 10 mg Tablet 10 mg PO TID RF: 0 hydroxyzine pamoate 50 mg Capsule 50 mg PO 4X/DAY PRN PRN (Reason: Anxiety) RF: 0 melatonin 3 mg Tablet 3 mg PO QHS RF: 0 buspirone 10 mg Tablet 10 mg PO BID RF: 0 omeprazole 20 mg Capsule,Delayed Release(Dr/Ec) 20 mg PO DAILY RF: 0 furosemide [Lasix] 20 mg Tablet 20 mg PO DAILY RF: 0 duloxetine 60 mg Capsule,Delayed Release(Dr/Ec) 60 mg PO DAILY RF: 0 [facility] - See Referral Note (Establish a primary care provider through the [facility] as soon as possible. ) Disposition Disposition (needs filled in before D/C Order can be placed): Long Term Facility
[2022-01-22 12:21] LABS: Bedside Glucose 153 mg/dL (70-110)
--- NOTE | 2022-01-22 13:04 | CASEMGMT ---
LISA spoke with Evelia with [facility]. She nor [facility] have received the approval fax from the [facility]. LISA had also asked that the VA fax SW the approval. LISA has not received a fax yet. LISA spoke with ANTONELLA Ramsey and she sent a message to [facility] asking them to fax the approval to LISA. LISA faxed orders and negative COVID to Evelia with [facility]. 7000 was completed on [facility]. LISA will arrange transport once the approval is received from the [place]. Ambreen Alanis COPY HOLDERChristina GARVEY
[2022-01-22] MEDS: Insulin Lispro 100 UNIT/ML INSULN.PEN SC (13:45)
--- NOTE | 2022-01-22 13:56 | CASEMGMT ---
LISA called Roxy GONZALEZ at the [place] and left her a voice mail letting her know LISA nor [facility] have received a fax regarding approval. LISA asked Roxy if there is anything she can do to speed up the process it would be much appreciated. Ambreen Alanis [employer] GURU
--- NOTE | 2022-01-22 14:30 | CASEMGMT ---
LISA received the fax from the [place] with approval. LISA faxed it to Evelia at [facility]. [facility] will transport patient. LISA called Evelia and let her know this was faxed and that [facility] will be taking her. They will be leaving in the next 30 min. Plan: d/c to [facility] under skilled level of care under [facility] benefits. [facility] transported her via private vehicle. Ambreen GARVEY
--- NOTE | 2022-01-22 14:50 | PCM.DC.SUM ---
Documented by User: Cornelio MUÑOZ 01/22/22 14:56 Providers Date of Admission: 01/13/22 Date of Discharge: 01/22/22 Primary Care Physician: [facility] Consultations 01/13/22 23:10 Consult: Unclaimed Property Officer / Pulmonary Medicine Routine Consulting Provider: Pulmonary Medicine gildardo Raya Reason for Consult: Septic shock EMERGENT Consult: No MD Notified: Yes Date Notified: 01/13/22 Time Notified: 21:29 Method of Notification: Text 01/14/22 06:24 Consult: Onc/Wound/boring machine operator vertical Routine Comment: Reason for Consult:: BLE, coccyx wounds 01/15/22 12:48 Consult: Infectious Disease Routine Consulting Provider: Lisandro Otoole Reason for Consult: Bacteremia EMERGENT Consult: No MD Notified: Yes Date Notified: 01/15/22 Time Notified: 12:48 Method of Notification: Verbal Reason For Visit: CELLULITIS Diagnosis Discharge Diagnosis (1) Infectious encephalopathy: Status: Acute Code(s): G93.49 - Other encephalopathy; B99.9 - Unspecified infectious disease (2) Cellulitis of left lower leg: Status: Acute Code(s): L03.116 - Cellulitis of left lower limb (3) Sinus tachycardia: Status: Acute Code(s): R00.0 - Tachycardia, unspecified (4) Septic shock: Status: Acute Code(s): A41.9 - Sepsis, unspecified organism; R65.21 - Severe sepsis with septic shock Medications at Discharge Home Medications levothyroxine 200 mcg PO DAILY 05/10/20 levetiracetam 1,000 mg PO BID 06/15/20 insulin glargine 45 units SC QHS 07/14/20 insulin lispro 14 unit SC TIDCM 07/14/20 cholecalciferol (vitamin D3) 1,250 mcg (50,000 unit) capsule 1,250 mcg PO QWEEK 07/30/20 gabapentin 600 mg tablet 1,200 mg PO QHS 07/30/20 gabapentin 600 mg tablet 900 mg PO DAILY tab 07/30/20 ferrous sulfate 325 mg (65 mg iron) tablet,delayed release 325 mg PO DAILY 10/22/20 pseudoephedrine-guaifenesin [Mucinex D] 2 tab PO BID #20 tab 08/09/21 buspirone 10 mg PO BID 01/16/22 cyclobenzaprine 10 mg PO TID 01/16/22 duloxetine 60 mg PO DAILY 01/16/22 furosemide [Lasix] 20 mg PO DAILY 01/16/22 hydroxyzine pamoate 50 mg PO 4X/DAY PRN PRN 01/16/22 melatonin 3 mg PO QHS 01/16/22 omeprazole 20 mg PO DAILY 01/16/22 cephalexin 500 mg PO TID #12 cap 01/22/22 Hospital Course Summary of Care Provided Minutes Spent on Discharge: 20 Hospital Course: Patient is a 51-year-old female who was admitted to [facility] on 01/22/2022 for evaluation and management of septic shock with metabolic encephalopathy secondary to bilateral lower extremity cellulitis. Course and management as below. 1) lower extremity cellulitis with bacteremia Blood cultures from 01/13 demonstrated Streptococcus pyogenes, with sensitivities to cefazolin. Repeat blood cultures demonstrate no growth. 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 ID following, managed on Ancef during admission, discharged on Keflex for 4 days per ID recommendations. 2) DM 1 Blood sugars are controlled. Continue home insulin regimen. 3) Pastora's granulomatosis Not on any chronic medications, does complicate #1. 4) depression/anxiety Continue with Cymbalta and hydroxyzine. 5) GERD Continue PPI. 6) hypothyroidism Continue Synthroid. 7) history of seizures Continue Keppra. 8) chronic liver disease Follows with GI doctor at [facility]. Patient seen by Cornelio Echeverria PA-C, under the supervision of Dr. Hernandez. Physical Exam Const alert, oriented x3 and no apparent distress HEENT normocephalic, head/scalp atraumatic and hearing grossly normal bilaterally Eyes PERRL Neck no lymphadenopathy Resp normal respiratory effort, no retractions and no use of accessory muscles Cardio regular rate, regular rhythm and no JVD GI normal to inspection, nondistended, normoactive bowel sounds Extremity Extremity Narrative: Wound appropriately dressed about the lower extremities, bilaterally. Skin no rashes or lesions noted Neuro CN's II-XII intact bilaterally Psych affect normal Weight / BMI Weight Weight: 199 lb 11.821 oz Body Mass Index (BMI) 30.2 ABG / Lab / Microbiology Data Result Diagrams: 01/22/22 06:25 01/22/22 06:25 Laboratory: Laboratory Results - last 24 hr 01/21/22 05:51: Diff Path Review Reviewed 01/21/22 15:57: POC Glucose 88 01/21/22 22:17: POC Glucose 192 H 01/22/22 06:25: WBC 8.9, RBC 3.67 L, Hgb 10.5 L, Hct 31.6 L, MCV 86.1, MCH 28.6, MCHC 33.2, RDW Std Deviation 44.4 H, RDW Coeff of Tere 15.1 H, Plt Count 202, MPV 9.2, Immature Gran % (Auto) 4.600 H, Neut % (Auto) 49.4, Lymph % (Auto) 33.7, [place] % (Auto) 10.0, Eos % (Auto) 1.6, Baso % (Auto) 0.7, Absolute Neuts (auto) 4.4, Absolute Lymphs (auto) 3.01, Nucleated RBC % 0 01/22/22 06:25: Sodium 137, Potassium 4.0, Chloride 101, Carbon Dioxide 34.0 H, Anion Gap 2 L, BUN 10, Creatinine 0.62, Estim Creat Clear Calc 100.49, Est GFR (MDRD) Af Amer 130, Est GFR (MDRD) Non-Af 108, BUN/Creatinine Ratio 16.1, Glucose 102, Calcium 8.2 L 01/22/22 09:15: POC Glucose 92 01/22/22 11:55: POC Glucose 153 H Microbiology: Microbiology 01/22/22 11:20 Nasal Secretion SARS-CoV-2 Antigen (Rapid) - Final 01/15/22 16:22 Blood Culture (Wb) - Left Wrist Blood Culture - Final No growth in 5 days. 01/13/22 20:05 Blood Culture (Wb) - Venous Blood Culture - Final Streptococcus pyogenes 01/13/22 20:10 Blood Culture (Wb) - Venous Bacteria Detection (PCR) - Final Streptococcus pyogenes 01/13/22 20:10 Blood Culture (Wb) - Venous Blood Culture - Final Streptococcus pyogenes 01/13/22 19:45 Urine Catheter - Irvin Urine Culture - Final Presumptive Lactobacillus sp. Meaningful Use Info Meaningful Use Diagnoses (Choose all that apply): None applicable Discharge Plan Admission Admit Date/Time: 01/13/22 21:26 Primary Reason for Your Visit: Confusion Attending Provider: Louis Hernandez Primary Care Provider: [facility],[place] Consulting Providers: Lisandro Otoole ; Donaldo Hernandez ; Geremias Samuels ; Svetlana Garcia [employer] Discharge Orders/Prescriptions Prescriptions: New cephalexin 500 mg capsule 500 mg PO TID Qty: 12 RF: 0 Continued cholecalciferol (vitamin D3) 1,250 mcg (50,000 unit) capsule 1,250 mcg PO QWEEK RF: 0 gabapentin 600 mg tablet 1,200 mg PO QHS RF: 0 gabapentin 600 mg tablet 900 mg PO DAILY RF: 0 ferrous sulfate 325 mg (65 mg iron) tablet,delayed release (DR/EC) 325 mg PO DAILY RF: 0 levothyroxine 200 MCG tablet 200 mcg PO DAILY RF: 0 levetiracetam 500 MG tablet 1,000 mg PO BID RF: 0 insulin lispro 100 UNIT/ML insulin pen 14 unit SC TIDCM RF: 0 insulin glargine 100 UNITS/ML insulin pen 45 units SC QHS RF: 0 pseudoephedrine-guaifenesin [Mucinex D] 60-600 mg tablet extended release 12 hr 2 tab PO BID Qty: 20 RF: 0 cyclobenzaprine 10 mg Tablet 10 mg PO TID RF: 0 hydroxyzine pamoate 50 mg Capsule 50 mg PO 4X/DAY PRN PRN (Reason: Anxiety) RF: 0 melatonin 3 mg Tablet 3 mg PO QHS RF: 0 buspirone 10 mg Tablet 10 mg PO BID RF: 0 omeprazole 20 mg Capsule,Delayed Release(Dr/Ec) 20 mg PO DAILY RF: 0 furosemide [Lasix] 20 mg Tablet 20 mg PO DAILY RF: 0 duloxetine 60 mg Capsule,Delayed Release(Dr/Ec) 60 mg PO DAILY RF: 0 Referrals / Follow Up: [facility],[place] [Primary Care Provider] - See Referral Note (Establish a primary care provider through the [place] as soon as possible. ) Disposition Disposition (needs filled in before D/C Order can be placed): [facility] Documented by User: Dr. Louis Hernandez MD 01/22/22 15:06 Providers Date of Admission: 01/13/22 Reason For Visit: CELLULITIS Medications at Discharge Home Medications levothyroxine 200 mcg PO DAILY 05/10/20 levetiracetam 1,000 mg PO BID 06/15/20 insulin glargine 45 units SC QHS 07/14/20 insulin lispro 14 unit SC TIDCM 07/14/20 cholecalciferol (vitamin D3) 1,250 mcg (50,000 unit) capsule 1,250 mcg PO QWEEK 07/30/20 gabapentin 600 mg tablet 1,200 mg PO QHS 07/30/20 gabapentin 600 mg tablet 900 mg PO DAILY tab 07/30/20 ferrous sulfate 325 mg (65 mg iron) tablet,delayed release 325 mg PO DAILY 10/22/20 pseudoephedrine-guaifenesin [Mucinex D] 2 tab PO BID #20 tab 08/09/21 buspirone 10 mg PO BID 01/16/22 cyclobenzaprine 10 mg PO TID 01/16/22 duloxetine 60 mg PO DAILY 01/16/22 furosemide [Lasix] 20 mg PO DAILY 01/16/22 hydroxyzine pamoate 50 mg PO 4X/DAY PRN PRN 01/16/22 melatonin 3 mg PO QHS 01/16/22 omeprazole 20 mg PO DAILY 01/16/22 cephalexin 500 mg PO TID #12 cap 01/22/22 Hospital Course Operations None Summary of Care Provided Minutes Spent on Discharge: 35 Hospital Course: This patient was seen in conjunction with Cornelio Echeverria PA-C. I have independently interviewed and examined the patient and reviewed pertinent historical, laboratory, and other data. Please refer to Cornelio Echeverria PA-C's note for details of this patient's presentation, findings, and recommendations. I have reviewed Cornelio Echeverria PA-C's note and concur with documented findings. In brief, patient is a 51-year-old lady with history of granulomatosis with polyangiitis (Pastora's granulomatosis) who presented with bilateral lower extremity swelling and assessment of cellulitis involving both lower extremities made admitted to monitored bed for further management 01/21/2022; patient seen the erythema and warmth involving both lower extremities improving. Awaiting transfer to custodial facility Physical Examination: GENERAL: cooperative HEENT: Atraumatic; EYES; Anicteric, Normal Conjunctiva NECK; supple, normal thyroid, RESPIRATORY: Diminished to auscultation CARDIOVASCULAR: Regular S1 S2, GI: soft, normoactive bowel sounds, : No Renal angle tenderness; EXTREMITIES: Both lower extremities and Nba wrap MUSCULOSKELETAL: no muscle wasting NEURO: Awake; no lateralizing signs. SKIN: No Rash PSYCH; Flat affect Assessment: 1. Septic shock secondary to bilateral lower extremity cellulitis and UTI (resolved 2. Bilateral lower extremity cellulitis 3. Acute cystitis 4. Acute kidney injury 5. Granulomatosis with polyangiitis 6. Hypokalemia 7. Hyponatremia 8. Diabetes mellitus type 1 9. Chronic liver disease 10. Seizure disorder 11. Hypothyroidism 12. Depression with anxiety Hospital course; as documented above Total time spent by myself and the advanced practice practitioner evaluating patient, reviewing labs, subsequent management decisions, discussion with patient as well as other providers 35 minutes ( 20 of which was spent by myself) ABG / Lab / Microbiology Data Result Diagrams: 01/22/22 06:25 01/22/22 06:25 Discharge Plan Admission Admit Date/Time: 01/13/22 21:26 Primary Reason for Your Visit: Confusion Attending Provider: Louis Hernandez Primary Care Provider: [facility],[place] Consulting Providers: Lisandro Otoole ; Donaldo Hernandez ; Geremias Samuels ; Svetlana Garcia [employer] W[employer]ER Discharge Orders/Prescriptions Prescriptions: New cephalexin 500 mg capsule 500 mg PO TID Qty: 12 RF: 0 Continued cholecalciferol (vitamin D3) 1,250 mcg (50,000 unit) capsule 1,250 mcg PO QWEEK RF: 0 gabapentin 600 mg tablet 1,200 mg PO QHS RF: 0 gabapentin 600 mg tablet 900 mg PO DAILY RF: 0 ferrous sulfate 325 mg (65 mg iron) tablet,delayed release (DR/EC) 325 mg PO DAILY RF: 0 levothyroxine 200 MCG tablet 200 mcg PO DAILY RF: 0 levetiracetam 500 MG tablet 1,000 mg PO BID RF: 0 insulin lispro 100 UNIT/ML insulin pen 14 unit SC TIDCM RF: 0 insulin glargine 100 UNITS/ML insulin pen 45 units SC QHS RF: 0 pseudoephedrine-guaifenesin [Mucinex D] 60-600 mg tablet extended release 12 hr 2 tab PO BID Qty: 20 RF: 0 cyclobenzaprine 10 mg Tablet 10 mg PO TID RF: 0 hydroxyzine pamoate 50 mg Capsule 50 mg PO 4X/DAY PRN PRN (Reason: Anxiety) RF: 0 melatonin 3 mg Tablet 3 mg PO QHS RF: 0 buspirone 10 mg Tablet 10 mg PO BID RF: 0 omeprazole 20 mg Capsule,Delayed Release(Dr/Ec) 20 mg PO DAILY RF: 0 furosemide [Lasix] 20 mg Tablet 20 mg PO DAILY RF: 0 duloxetine 60 mg Capsule,Delayed Release(Dr/Ec) 60 mg PO DAILY RF: 0 [facility]errals / [facility] [[facility]] - See Referral Note ([facility]abl[facility] as soon as possible. ) Disposition Disposition (needs filled in before D/C Order can be placed): Senior Care Facility Charges/Coding Visit Charges Inpatient E&M: 50726 Disch Hosp Hospital Course Consultations Consultations: Consultations 01/13/22 23:10 Consult: Unclaimed Property Officer / Pulmonary Medicine Routine Consulting Provider: Pulmonary Medicine gildardo Elver Reason for Consult: Septic shock EMERGENT Consult: No Notified: Yes Date Notified: 01/13/22 Time Notified: 21:29 Method of Notification: Text 01/14/22 06:24 Consult: Onc/Wound/boring machine operator vertical Routine Comment: Reason for Consult:: BLE, coccyx wounds 01/15/22 12:48 Consult: Infectious Disease Routine Consulting Provider: Lisandro Otoole Reason for Consult: Bacteremia EMERGENT Consult: No Notified: Yes Date Notified: 01/15/22 Time Notified: 12:48 Method of Notification: Verbal Operations None
== END 2022-01-22 15:50 | disposition skilled nursing facility (03) | DRG 871 ==
LOC: ED 19:00 → ICU 21:56 → PCU 01-16 12:15 → ICU 01-16 21:19 → PCU 01-16 21:19
PROVIDERS: Family Medicine; Internal Medicine Critical Care Medicine; Admitting Provider Internal Medicine; Emergency Provider Emergency Medicine; Visit Provider Internal Medicine
DX: A40.0 Sepsis due to streptococcus, group A (principal); G93.41 Metabolic encephalopathy; R65.21 Severe sepsis with septic shock; D84.9 Immunodeficiency, unspecified; M31.30 Wegener's granulomatosis without renal involvement; N17.9 Acute kidney failure, unspecified; L97.801 Non-pressure chronic ulcer of other part of unspecified lower leg limited to breakdown of skin; E87.1 Hypo-osmolality and hyponatremia; J90 Pleural effusion, not elsewhere classified; N30.00 Acute cystitis without hematuria; L03.115 Cellulitis of right lower limb; L03.116 Cellulitis of left lower limb; E10.59 Type 1 diabetes mellitus with other circulatory complications; G40.909 Epilepsy, unspecified, not intractable, without status epilepticus; E10.65 Type 1 diabetes mellitus with hyperglycemia; Z79.4 Long term (current) use of insulin; K74.60 Unspecified cirrhosis of liver; E88.09 Other disorders of plasma-protein metabolism, not elsewhere classified; E87.6 Hypokalemia; I87.2 Venous insufficiency (chronic) (peripheral); F17.210 Nicotine dependence, cigarettes, uncomplicated; K21.9 Gastro-esophageal reflux disease without esophagitis; E03.9 Hypothyroidism, unspecified; F41.8 Other specified anxiety disorders; Z79.01 Long term (current) use of anticoagulants; G89.29 Other chronic pain; F32.A Depression, unspecified; Z79.899 Other long term (current) drug therapy; Z79.890 Hormone replacement therapy; Z86.16 Personal history of COVID-19
CPT/HCPCS: 36415; 51702; 70450; 71045; 80048; 80053; 81001; 82962; 83605; 83735; 83880; 84100; 84484; 85025; 87040; 87077; 87086; 87088; 87149; 87186; 87426; 93005; 93970; 97110; 97116; 97163; 97167; 97530; 97535; 97803; 99251; 99285; J7030; J7040; J7050; A4216; G0463; J2405; J3490

== ENCOUNTER 2022-02-12 18:09 | Emergency (ER) | payer OTHER, SELFPAY ==
[2022-02-12 18:10] VITALS: BP 123/73; PULSE 98; RESP 16; TEMP 36.2; O2SAT 97; BMI 29.0
--- NOTE | 2022-02-12 18:38 | EKG12_ITS ---
Test Reason : Blood Pressure : / mmHG Vent. Rate : 075 BPM Atrial Rate : 075 BPM P-R Int : 162 ms QRS Dur : 082 ms QT Int : 384 ms P-R-T Axes : 050 016 034 degrees QTc Int : 428 ms Normal sinus rhythm Normal ECG Confirmed by DANIELLA SHEIKH, LIZY ([id number]), offline editor YVONNE CLARK ([id number]) on 02/17/2022 8:57:17 AM Referred By: Confirmed By:TOYA BREWER MD
--- NOTE | 2022-02-12 18:41 | CT_ITS ---
STUDY: CT BRAIN WITHOUT CONTRAST REASON FOR EXAM: Female, 51 years old. CONTINUED WEAKNESS AFTER RELEASE FROM HOSPITAL FOR [facility]PT[facility], HX LUNG CA, WAGENER''S VASCULITIS seizures, headache TECHNIQUE: Transaxial CT imaging of the brain was performed without administration of intravenous contrast material. Individualized dose optimization techniques were used for this CT. COMPARISON: Jan 13 2022 7:07pm FINDINGS: Normal calvarium. Normal soft tissues. Normal size ventricles and extra-axial spaces for the patient''s age. Normal white matter tracts of the cerebral hemispheres. Normal basal ganglia and thalami. Normal brainstem. Normal cerebellum. There is no intracranial hemorrhage. There are no findings of an acute ischemic infarction. Normal visualized paranasal sinuses. ASPECTS 10 CT/Brain/Head without Contrast IMPRESSION: There are no acute intracranial findings. Since the patients symptoms have persisted. Recommend MRI Electronically Signed: Leroy Garcia MD at 19:40 EDT ,
--- NOTE | 2022-02-12 18:41 | EX.ED.DYSGE1 ---
HPI History of Present Illness Chief Complaint: Weakness Informant: patient Onset/Context/Timing Onset: Weeks (2) Context: Gradual Onset Timing: Continuous Narrative Narrative: Patient presents with multiple complaints that have been present and not improving for the past 2 weeks since she was discharged from the hospital after having had bacteremia and septic shock that she states was related to cellulitis in her left leg and possibly sacral decubitus ulceration/wound. She states she has not been feeling any better. She denies any fevers, but [facility] saw her today and sent me in out of concern for endocarditis. Patient complains of: Increased frequency of breakthrough seizures for which she was diagnosed with epilepsy and is taking Keppra, composed of both absence seizures and some tonic-clonic activity some of which she loses consciousness for and then recovers 3 minutes later and is back to normal; headaches, malaise/weakness, pain in left low back and lateral/posterior left lower leg radiating down to her foot sometimes, a left foot drop and right wrist drop both of which have been there since she was in the hospital and are not changed or better, but they were not present before she was admitted to the hospital; and urinary urgency, frequency, burning dysuria without hematuria. States today is the last day of the cephalexin she has been on since being discharged. [facility] Medical History Cervical radicular pain Chest pain Dehydration Diabetes Elevated lactic acid level History of type 1 diabetes mellitus Hyperglycemia Hypothyroidism Hypoxia Lung abscess Pneumonia due to COVID-19 virus Seizures Septic shock Steroid-induced hyperglycemia Wegeners granulomatosis Home Medications levothyroxine 200 mcg PO DAILY 05/10/20 [History Last Taken 06/19/20] levetiracetam 1,000 mg PO BID 06/15/20 [History Last Taken 06/19/20] insulin glargine 45 units SC QHS 07/14/20 [History Last Taken 08/08/21] insulin lispro 14 unit SC TIDCM 07/14/20 [History Last Taken Unknown] cholecalciferol (vitamin D3) 1,250 mcg (50,000 unit) capsule 1,250 mcg PO QWEEK 07/30/20 [History Last Taken 01/07/22 10:00] gabapentin 600 mg tablet 1,200 mg PO QHS 07/30/20 [History Last Taken Unknown] gabapentin 600 mg tablet 900 mg PO DAILY tab 07/30/20 [History Last Taken Unknown] ferrous sulfate 325 mg (65 mg iron) tablet,delayed release 325 mg PO DAILY 10/22/20 [History Last Taken Unknown] pseudoephedrine-guaifenesin [Mucinex D] 2 tab PO BID #20 tab 08/09/21 [Rx Last Taken Unknown] buspirone 10 mg PO BID 01/16/22 [History Last Taken Unknown] cyclobenzaprine 10 mg PO TID 01/16/22 [History Last Taken Unknown] duloxetine 60 mg PO DAILY 01/16/22 [History Last Taken Unknown] furosemide [Lasix] 20 mg PO DAILY 01/16/22 [History Last Taken Unknown] hydroxyzine pamoate 50 mg PO 4X/DAY PRN PRN 01/16/22 [History Last Taken Unknown] melatonin 3 mg PO QHS 01/16/22 [History Last Taken Unknown] omeprazole 20 mg PO DAILY 01/16/22 [History Last Taken Unknown] cephalexin 500 mg PO TID #12 cap 01/22/22 [Rx Last Taken Unknown] levofloxacin 750 mg PO QHS 4 Days #4 tab 02/12/22 [Rx Last Taken Unknown] Allergy/AdvReac Type Severity Reaction Status Date / Time NSAIDS (Non-Steroidal Allergy Swelling Verified 02/12/22 18:10 Anti-Inflamma ketorolac [From Toradol] AdvReac headache Verified 02/12/22 18:10 prednisone AdvReac PT UNSURE Verified 02/12/22 18:10 OF REACTION tramadol AdvReac headache Verified 02/12/22 18:10 Family History Grandfather COPD (chronic obstructive pulmonary disease) Surgical History H/O: hysterectomy Hx of appendectomy Social History household members: none Smoking Status: Current every day smoker tobacco type: cigarettes Tobacco: How many years used: 7 substance use type: does not use ROS ROS ED Constitutional Constitutional ED: Reports malaise and weakness; Denies chills or fever(s) Eyes Eyes: Denies change in vision or diplopia ENT ENT ED: Denies rhinorrhea or sore throat Cardiovascular Cardiovascular: Denies chest pain or palpitations Respiratory/Chest Respiratory/Chest: Denies cough or dyspnea Gastrointestinal Gastrointestinal: Denies abdominal pain, diarrhea, nausea or vomiting Genitourinary Genitourinary ED: Reports dysuria, flank pain, urinary frequency and urinary urgency; Denies hematuria Musculoskeletal Musculoskeletal: Reports as per HPI, back pain and extremity pain; Denies neck pain Integumentary Reports wounds and other Details: States pain and redness from left lower extremity cellulitis is gone/better ; Denies abscess or rash Neurologic Neurologic: Denies headache(s), paresthesias or weakness Psychiatric Psychiatric: Denies anxiety or suicidal thoughts EXAM Physical Exam Const Vital Signs: 02/12/22 18:10 02/12/22 19:38 02/12/22 20:00 Temperature 97.1 F L 98 F Temperature Source Temporal Temporal Pulse Rate 98 81 70 Respiratory Rate 16 17 14 Blood Pressure 123/73 H 122/81 H 115/74 Blood Pressure Mean 89 94 87 Pulse Ox 97 97 95 Oxygen Delivery Method Room Air Room Air Room Air 02/12/22 21:00 Temperature Temperature Source Pulse Rate 69 Respiratory Rate 16 Blood Pressure 117/79 Blood Pressure Mean 91 Pulse Ox 96 Oxygen Delivery Method Positive well nourished and well developed General Appearance ED: well developed and NAD HEENT Reports moist mucous membranes normocephalic and atraumatic Eyes PERRL and EOMs intact bilaterally Neck full ROM and supple Resp normal respiratory effort and clear to auscultation bilaterally Cardio regular rate, regular rhythm, S1 normal heart sound, S2 normal heart sound, no murmurs and peripheral pulses 2+ throughout Rate: Negative for tachycardic GI non-tender and non-distended Auscultation: normoactive bowel sounds Palpation: soft Back/Spine no CVA tenderness, normal ROM and normal to inspection Back/Spine Narrative: Nontender throughout low back General Back: other FROM Extremity normal to inspection Extremity Narrative: Healing small wound distal left leg without cellulitis, tenderness, abscess. Negative straight leg raises bilaterally. General Extremety ED: Negative for edema, pulses abnormal or tenderness General Extremity: Negative for edema or pulses abnormal Neuro oriented x3, CN's II-XII intact bilaterally and no sensory deficits noted Neuro Narrative: Unable to dorsiflex left foot or right hand/wrist. Otherwise full range of motion and normal strength. Sensorium / Orientation: awake and alert Skin no rashes or lesions noted Skin Narrative: Ulcerated wound x3 on sacrum/buttocks, nontender and no signs of infection/drainage/abscess MDM MDM MDM Narrative Medical decision making narrative: Patient had a urine culture showing lactobacillus and blood cultures showing strep pyogenes that was sensitive to everything except for clindamycin all performed on 01/13/2022. She had a blood culture performed 2 days after that that was negative. I am repeating her blood cultures in addition to the rest of a sepsis work-up. The patient has multiple complaints. I am trying to image the appropriate areas including the left flank and her head in conjunction with the blood work and an EKG to address them all. The cellulitis in her left lower leg is resolved and the wounds look good there. The ones on her buttock are trying to heal, and there are no signs of infection, the significant other states he has been helping her with dressing changes and they are taking good care of them and agree that they look better than they did. On my interpretation, 2 view chest x-ray shows right pleural effusion. Radiology suggest there is an infiltrate associated with it that was not there in the last x-ray which also showed a small right pleural effusion. Therefore my suspicion is that this is pre-existing and not necessarily a parapneumonic effusion. However, she states she has had a productive cough, without dyspnea or chest discomfort or fever. Her troponin is negative, her lactate is within normal limits, she has no chest symptoms or fever, she has no cardiac murmur or tachycardia out of proportion (she has no tachycardia at all), and her last blood culture was negative. Given all of this, my suspicion for endocarditis is low. We did redraw blood cultures, however. I ambulated the patient, she did not become dyspneic and she was 96% when she started a 98% while she was walking and is doing fine. She does not meet criteria for sepsis. At this time I think it is reasonable to treat her pneumonia empirically with Levaquin 750 mg for 5 days, and have her follow-up closely, if her blood cultures returned positive in that period of time then clearly I would recommend that she return for further evaluation and admission. At this time comfortable with her going home and following up closely, discussed this with her and her significant other and they are in agreement with that plan. Lab Data Attestation: I reviewed the patient's lab results. Labs: Laboratory Results - last 24 hr 02/12/22 02/12/22 02/12/22 18:50 18:50 18:50 WBC 8.7 RBC 3.58 L Hgb 10.8 L Hct 31.3 L MCV 87.4 MCH 30.2 MCHC 34.5 RDW Std Deviation 45.8 H RDW Coeff of Tere 14.4 Plt Count 192 MPV 8.3 Immature Gran % (Auto) 0.300 Neut % (Auto) 53.1 Lymph % (Auto) 35.7 Victoria % (Auto) 7.1 Eos % (Auto) 3.0 Baso % (Auto) 0.8 Absolute Neuts (auto) 4.6 Absolute Lymphs (auto) 3.10 Nucleated RBC % 0 Sodium 132 L Potassium 3.9 Chloride 94 L Carbon Dioxide 33.0 H Anion Gap 5 BUN 18 Creatinine 1.89 H Estim Creat Clear Calc 34.24 Est GFR (MDRD) Af Amer 36 L Est GFR (MDRD) Non-Af 30 L BUN/Creatinine Ratio 9.5 L Glucose 361 H Lactic Acid 1.7 Calcium 8.6 Total Bilirubin 0.40 AST 22 ALT 8 L Alkaline Phosphatase 103 Troponin I High Sens < 3 L Total Protein 8.6 H Albumin 2.4 L Globulin 6.2 H Albumin/Globulin Ratio 0.4 L Urine Color Urine Clarity Urine pH Ur Specific Rose Urine Protein Urine Glucose (UA) Urine Ketones Urine Occult Blood Urine Nitrite Urine Bilirubin Urine Urobilinogen Ur Leukocyte Esterase Urine RBC Urine WBC Ur Squamous Epith Cells Urine Bacteria Urine Mucus 02/12/22 19:00 WBC RBC Hgb Hct MCV MCH MCHC RDW Std Deviation RDW Coeff of Tere Plt Count MPV Immature Gran % (Auto) Neut % (Auto) Lymph % (Auto) Victoria % (Auto) Eos % (Auto) Baso % (Auto) Absolute Neuts (auto) Absolute Lymphs (auto) Nucleated RBC % Sodium Potassium Chloride Carbon Dioxide Anion Gap BUN Creatinine Estim Creat Clear Calc Est GFR (MDRD) Af Amer Est GFR (MDRD) Non-Af BUN/Creatinine Ratio Glucose Lactic Acid Calcium Total Bilirubin AST ALT Alkaline Phosphatase Troponin I High Sens Total Protein Albumin Globulin Albumin/Globulin Ratio Urine Color Yellow Urine Clarity Clear Urine pH 5.0 Ur Specific Rose 1.015 Urine Protein 15 H Urine Glucose (UA) 1000 H Urine Ketones Negative Urine Occult Blood 250 H Urine Nitrite Negative Urine Bilirubin Negative Urine Urobilinogen Normal Ur Leukocyte Esterase 100 H Urine RBC 10-25 SEEN Urine WBC 0-5 SEEN Ur Squamous Epith Cells 0-5 SEEN Urine Bacteria 0 SEEN Urine Mucus 0 SEEN Radiography Diagnostic Testing: Clinical Impression(s) from Imaging Studies Brain CT 02/12/22 18:41 IMPRESSION: There are no acute intracranial findings. Since the patients symptoms have persisted. Recommend MRI Electronically Signed: Leroy Garcia MD at 19:40 EDT , Abdomen/Pelvis CT 02/12/22 18:46 Chest X-Ray 02/12/22 19:10 IMPRESSION: There is a right pleural effusion. There is right lower lobe infiltrate / atelectasis. Electronically Signed: Leroy Garcia MD at 19:41 EDT , Rhythm Strip Rhythm Strip: Sinus Rhythm Rate: 75 Ectopy: None EKG Initial EKG: Attestation: I personally reviewed and interpreted this EKG as follows: Interpretation: Sinus Rhythm and No Acute Injury Pattern Comments: Rate 75. Normal EKG. No ectopy. Discharge Plan Triage Chief Complaint: Weakness ED Provider: Boubacar Merida Dx/Rx/DC Orders Clinical Impression: Pneumonia involving right lung, Pleural effusion on right, Wound of sacral region, JOHANN (acute kidney injury), Hyperglycemia due to type 2 diabetes mellitus Instructions: ED Pleural Effusion, ED Pneumonia (Adult) Prescriptions: New levofloxacin 750 mg tablet 750 mg PO QHS 4 Days Qty: 4 RF: 0 Continued cholecalciferol (vitamin D3) 1,250 mcg (50,000 unit) capsule 1,250 mcg PO QWEEK RF: 0 gabapentin 600 mg tablet 1,200 mg PO QHS RF: 0 gabapentin 600 mg tablet 900 mg PO DAILY RF: 0 ferrous sulfate 325 mg (65 mg iron) tablet,delayed release (DR/EC) 325 mg PO DAILY RF: 0 levothyroxine 200 MCG tablet 200 mcg PO DAILY RF: 0 levetiracetam 500 MG tablet 1,000 mg PO BID RF: 0 insulin lispro 100 UNIT/ML insulin pen 14 unit SC TIDCM RF: 0 insulin glargine 100 UNITS/ML insulin pen 45 units SC QHS RF: 0 pseudoephedrine-guaifenesin [Mucinex D] 60-600 mg tablet extended release 12 hr 2 tab PO BID Qty: 20 RF: 0 cyclobenzaprine 10 mg Tablet 10 mg PO TID RF: 0 melatonin 3 mg Tablet 3 mg PO QHS RF: 0 buspirone 10 mg Tablet 10 mg PO BID RF: 0 omeprazole 20 mg Capsule,Delayed Release(Dr/Ec) 20 mg PO DAILY RF: 0 furosemide [Lasix] 20 mg Tablet 20 mg PO DAILY RF: 0 duloxetine 60 mg Capsule,Delayed Release(Dr/Ec) 60 mg PO DAILY RF: 0 cephalexin 500 mg capsule 500 mg PO TID Qty: 12 RF: 0 Held hydroxyzine pamoate 50 mg Capsule 50 mg PO 4X/DAY PRN PRN (Reason: Anxiety) RF: 0 Hold Instructions: Resume on 02/24/22. due to interaction with antibiotic [facility] [Primary Care Provider] - 3-5 Days (And/your your primary doctor if you have a different one) Activity Restrictions/Additional Instructions: Your kidney function is down just a little and is likely related to some dehydration from your sugars being high. Do your best to keep your sugars under control and drink plenty of fluids and this will likely reverse itself, and should be rechecked on your next doctor's visit. Disposition Disposition: Home, Self Care
--- NOTE | 2022-02-12 18:46 | CT_ITS ---
STUDY: CT Abdomen And Pelvis W/O Contrast Injection 02/12/2022 7:42 PM REASON FOR EXAM: Female, 51 years old. ABDOMINAL PAIN LEFT FLANK PAIN, CONTINUED WEAKNESS AFTER RELEASE FROM HOSPITAL FOR SEPTIC SHOCK, HX LUNG CA, WAGENER''S VASCULITIS TECHNIQUE: Transaxial images were obtained without oral contrast, and without intravenous contrast. Individualized dose optimization techniques were used for this CT. COMPARISON: None. FINDINGS: Right lower lobe pneumonectomy changes. The visualized portions of the heart are within normal limits. There is hepatomegaly with diffuse hepatic enlargement. Normal gallbladder and extrahepatic biliary system. There is mild splenomegaly. Normal pancreas. Normal bilateral adrenal glands. No acute findings of the right kidney. No acute findings of the left kidney. Normal visualized stomach. Normal small intestine. Stool throughout the colon. There is non-visualization of the appendix. There are calcifications of the abdominal aorta. This is consistent for atherosclerotic disease. There is no abdominal aortic aneurysm. Normal inferior vena cava. Subcentimeter mesenteric lymph nodes. Normal urinary bladder. There is absence of the uterus consistent with a prior hysterectomy.Anterior abdominal subcutaneous tissue granulomas are visualized. There is an umbilical hernia containing fat. Normal osseous structures. IMPRESSION: (NOT LISTED IN ORDER OF SIGNIFICANCE) Hepatospleno megaly. There are no acute findings. Other findings as above. Electronically Signed: Leroy Garcia MD at 19:44 EDT , CT/Abdomen/Pelvis without Cont
[2022-02-12 19:01] LABS: Absolute Neutrophil Count 4.6 X10^3/uL (2.0-7.7); Basophil# 0.07 X10^3/uL; Basophil% 0.8 % (0-1); Eosinophil# 0.26 X10^3/uL; Hematocrit 31.3 % (37-47); Hemoglobin 10.8 g/dL (12.0-15.0); Lymphocyte % 35.7 % (19-41); Mean Corp Hgb Conc 34.5 g/dL (32-36); Mean Corpuscular Hgb 30.2 pg (27.0-32.0); Mean Corpuscular Volume 87.4 fL (81-99); Mean Platelet Vol. 8.3 fl (6.2-12.0); Monocyte# 0.62 X10^3/uL; Monocyte% 7.1 % (0-10); NRBC Flagged by Analyzer 0 % (0-5); Neutrophil # 4.61 X10^3/uL (2.7-7.7); Neutrophil % 53.1 % (47-70); Platelet Count 192 K/mm3 (150-450); RBC Distribution Width CV 14.4 % (11.6-14.6); RBC Distribution Width SD 45.8 fl (35.1-43.9); Red Blood Count 3.58 M/mm3 (4.2-5.4); White Blood Count 8.7 K/mm3 (4.4-11.0)
[2022-02-12 19:10] LABS: Bacteria 0 SEEN /hpf (None Seen); Mucous, Urine 0 SEEN /hpf (<or=2+)
--- NOTE | 2022-02-12 19:10 | RAD_ITS ---
STUDY: X-RAY CHEST REASON FOR EXAM: Female, 51 years old. CHEST PAIN PT STATES SHE WAS RELEASED FROM OUR ICU A FEW WEEKS AGO FOR SEPTIC SHOCK. STATES SHE IS EXPERIENCING CONTINUED weakness TECHNIQUE: XR Chest 2 Views COMPARISON: 01.13.22 FINDINGS: There is a right pleural effusion. There is right lower lobe infiltrate / atelectasis. Normal size heart. Normal mediastinum and janes. Normal visualized pulmonary arteries. There is atherosclerotic calcification of the aortic arch with tortuosity. There are diffuse degenerative changes of the visualized thoracic spine. There is degenerative osteoarthritis of the bilateral shoulders. There is no demonstrated abnormality of the visualized soft tissue structures of the upper abdomen. RAD/Chest PA and Lateral IMPRESSION: There is a right pleural effusion. There is right lower lobe infiltrate / atelectasis. Electronically Signed: Leroy Garcia MD at 19:41 EDT ,
[2022-02-12 19:11] LABS: Color, Urine Yellow (Yellow); Glucose, Dipstick 1000 mg/dl (Normal); Ketone-Dipstick Negative (Negative); Leukocyte Esterase-Dipstick 100 /ul (Negative); Nitrite-Dipstick Negative (Negative); Occult Blood-Urine 250 /ul (Negative); Protein-Dipstick 15 mg/dl (Negative); Specific Gravity, Urine 1.015 (1.002-1.030); Urine Bilirubin Dipstick Negative (Negative); Urine Clarity Clear (Clear); Urine Urobilinogen Normal (Normal)
[2022-02-12 19:19] LABS: Red Blood Cells-Urine 10-25 SEEN /hpf (0-5); Squamous Epithelial Cells - UA 0-5 SEEN /hpf (5-10); White Blood Cells 0-5 SEEN /hpf (0-5)
[2022-02-12] MEDS: Morphine 4 MG/ML Syringe IV (19:37)
[2022-02-12 19:38] VITALS: BP 122/81; PULSE 81; RESP 17; TEMP 36.6; O2SAT 97
[2022-02-12 19:42] LABS: Lactic Acid 1.7 mmol/L (0.4-1.9)
[2022-02-12 19:43] LABS: ALB/GLOB Ratio 0.4 RATIO (0.9-2.4); AST(SGOT) 22 U/L (15-37); Alanine Aminotransfer ALT/SGPT 8 U/L (13-56); Albumin, Serum 2.4 g/dL (3.2-5.0); Alkaline Phosphatase 103 U/L (45-117); Anion Gap 5 (5-15); BUN 18 mg/dL (7-18); BUN/Creat Ratio 9.5 RATIO (10-20); Calcium,Total 8.6 mg/dL (8.5-10.1); Chloride 94 mmol/L (98-107); Creatinine, Serum 1.89 mg/dL (0.55-1.02); EST Glomerular Filtration Rate 30 mL/min (>60); Est Glom Filt Rate - Afr Amer 36 mL/min (>60); Estimated Creatinine Clearance 34.24 ml/min; Globulin 6.2 g/dL (2.2-4.2); Glucose 361 mg/dL (74-106); Potassium 3.9 mmol/L (3.5-5.1); Protein, Total 8.6 g/dL (6.4-8.2); Sodium Level 132 mmol/L (136-145); Troponin-I HS < 3 pg/mL (3.0-54.0)
[2022-02-12 20:00] VITALS: BP 115/74; PULSE 70; RESP 14; O2SAT 95
[2022-02-12 21:00] VITALS: BP 117/79; PULSE 69; RESP 16; O2SAT 96
[2022-02-12 22:14] VITALS: O2SAT 96
[2022-02-12] MEDS: levoFLOXacin 750 MG Tablet PO (23:05)
== END 2022-02-12 23:08 | disposition home or self-care (01) ==
PROVIDERS: Emergency Provider Emergency Medicine; Visit Provider Emergency Medicine
DX: J18.9 Pneumonia, unspecified organism (principal); N17.9 Acute kidney failure, unspecified; E10.65 Type 1 diabetes mellitus with hyperglycemia; J90 Pleural effusion, not elsewhere classified; S31.000A Unspecified open wound of lower back and pelvis without penetration into retroperitoneum, initial encounter; F17.210 Nicotine dependence, cigarettes, uncomplicated; X58.XXXA Exposure to other specified factors, initial encounter
CPT/HCPCS: 70450; 71046; 74176; 80053; 81001; 83605; 84484; 85025; 87040; 87086; 87088; 93005; 96374; 99285; A4216

== ENCOUNTER → 2022-02-20 11:05 | Outpatient (CLI) | payer OTHER, SELFPAY ==
[2022-02-20 11:27] LABS: Albumin, Serum 2.6 g/dL (3.2-5.0); BUN 18 mg/dL (7-18); BUN/Creat Ratio 10.2 RATIO (10-20); Calcium,Total 9.2 mg/dL (8.5-10.1); Chloride 98 mmol/L (98-107); Creatinine, Serum 1.76 mg/dL (0.55-1.02); EST Glomerular Filtration Rate 32 mL/min (>60); Est Glom Filt Rate - Afr Amer 39 mL/min (>60); Glucose 101 mg/dL (74-106); Phosphorus 4.2 mg/dL (2.5-4.9); Potassium 3.5 mmol/L (3.5-5.1); Sodium Level 135 mmol/L (136-145)
== END ==
DX: N25.9 Disorder resulting from impaired renal tubular function, unspecified (principal); K74.60 Unspecified cirrhosis of liver
CPT/HCPCS: 80069

== ENCOUNTER → 2022-02-21 17:10 | Outpatient (CLI) | payer OTHER, SELFPAY ==
--- NOTE | 2022-02-21 17:21 | MRI_ITS ---
EXAM: MR HEAD WITHOUT AND WITH INTRAVENOUS CONTRAST CLINICAL INDICATION: RT HAND WEAKNESS, LEFT FOOT R/O CVA TECHNIQUE: Multiplanar and multisequence MR images of the brain were obtained without and with intravenous contrast. This report was created using [employer] report generation technology. CONTRAST: 17CC IV DOTAREM COMPARISON: Feb 12 2022 7:06pm CT Brain FINDINGS: BRAIN AND EXTRA-AXIAL SPACES: Unremarkable. No intra- or extra-axial hemorrhage. No evidence of acute infarct. No intracranial mass or mass effect. There is preservation of the trevizo/white matter interface. Posterior fossa structures are unremarkable. Ventricles are appropriate for age. No hydrocephalus. Basal cisterns are patent. SELLA: Unremarkable. Normal sella turcica, pituitary gland, infundibular stalk, optic chiasm and hypothalamus. AUDITORY SYSTEM: Unremarkable. The internal auditory canals are patent. BONES/JOINTS: Unremarkable. No discrete lytic or blastic abnormalities. SINUSES: Unremarkable as visualized. Clear. MASTOID AIR CELLS: Unremarkable as visualized. Clear. ORBITS: Unremarkable as visualized. Both globes, extraocular muscles, optic nerves and retrobulbar fat appear unremarkable. VASCULATURE: Unremarkable as visualized. Normal flow voids in the major intracranial circulation. MRI/Brain W/WO Contrast IMPRESSION: Negative MRI brain without and with intravenous contrast. Electronically Signed: Leroy Garcia MD at 19:12 EDT Reading Location ID and State: [facility] / [place] , Service support ,
== END ==
DX: R53.1 Weakness (principal)
CPT/HCPCS: 70553; A9575

== ENCOUNTER → 2022-07-01 | Outpatient (CLI) | payer SELFPAY ==
[2022-07-01 13:43] LABS: Bacteria 0 SEEN /hpf (None Seen); Mucous, Urine 0 SEEN /hpf (<or=2+); White Blood Cells 0 SEEN /hpf (0-5)
[2022-07-01 13:50] LABS: Hemoglobin 12.9 g/dL (12.0-15.0); Mean Corp Hgb Conc 33.9 g/dL (32-36); Mean Corpuscular Hgb 28.8 pg (27.0-32.0); Mean Corpuscular Volume 84.8 fL (81-99); Mean Platelet Vol. 8.3 fl (6.2-12.0); Platelet Count 184 K/mm3 (150-450); RBC Distribution Width CV 13.1 % (11.6-14.6); RBC Distribution Width SD 39.9 fl (35.1-43.9); Red Blood Count 4.48 M/mm3 (4.2-5.4); White Blood Count 7.7 K/mm3 (4.4-11.0)
[2022-07-01 13:52] LABS: Color, Urine Yellow (Yellow); Glucose, Dipstick 100 mg/dl (Normal); Ketone-Dipstick Negative (Negative); Leukocyte Esterase-Dipstick Negative /ul (Negative); Nitrite-Dipstick Negative (Negative); Occult Blood-Urine 250 /ul (Negative); Protein-Dipstick 15 mg/dl (Negative); Urine Bilirubin Dipstick Negative (Negative); Urine Clarity Sl. Cloudy (Clear); Urine Urobilinogen Normal (Normal)
[2022-07-01 14:06] LABS: ALB/GLOB Ratio 0.8 RATIO (0.9-2.4); AST(SGOT) 40 U/L (15-37); Alanine Aminotransfer ALT/SGPT 13 U/L (13-56); Albumin, Serum 3.4 g/dL (3.2-5.0); Alkaline Phosphatase 119 U/L (45-117); Anion Gap 4 (5-15); BUN 7 mg/dL (7-18); BUN/Creat Ratio 6.6 RATIO (10-20); Calcium,Total 8.9 mg/dL (8.5-10.1); Chloride 101 mmol/L (98-107); Cholesterol 173 mg/dL (200); Creatinine, Serum 1.06 mg/dL (0.55-1.02); EST Glomerular Filtration Rate 58 mL/min (>60); Est Glom Filt Rate - Afr Amer 70 mL/min (>60); Globulin 4.5 g/dL (2.2-4.2); Glucose 108 mg/dL (74-106); High Density Lipoprotein 24 mg/dL; Protein, Total 7.9 g/dL (6.4-8.2); Sodium Level 136 mmol/L (136-145); Thyroid Stim Hormone (TSH) 6.83 uIU/mL (0.358-3.74); Triglycerides 316 mg/dL; Very Low Density Lipoprotein 63 mg/dL (5-40)
[2022-07-01 14:12] LABS: Red Blood Cells-Urine 25-50 SEEN /hpf (0-5); Squamous Epithelial Cells - UA 0-5 SEEN /hpf (5-10)
[2022-07-01 14:27] LABS: Hemoglobin A1c 9.6 % (3.8-5.6)
== END | disposition home or self-care (01) ==
DX: R53.82 Chronic fatigue, unspecified (principal); K74.60 Unspecified cirrhosis of liver; E10.9 Type 1 diabetes mellitus without complications; N39.0 Urinary tract infection, site not specified
CPT/HCPCS: 80053; 80061; 81001; 83036; 84443; 85027; 87086; 87088

== ENCOUNTER 2022-09-24 20:23 | Emergency (ER) | payer OTHER, SELFPAY ==
[2022-09-24 20:24] VITALS: BP 124/73; PULSE 100; RESP 18; TEMP 36.3; O2SAT 99; BMI 26.6
[2022-09-24 22:24] VITALS: PULSE 78; RESP 18; O2SAT 99
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
[2022-09-25 00:09] VITALS: RESP 18
== END 2022-09-25 00:10 | disposition home or self-care (01) ==
PROVIDERS: Emergency Provider Emergency Medicine; Visit Provider Emergency Medicine
DX: S16.1XXA Strain of muscle, fascia and tendon at neck level, initial encounter (principal); F17.210 Nicotine dependence, cigarettes, uncomplicated; Z86.16 Personal history of COVID-19; V49.9XXA Car occupant (driver) (passenger) injured in unspecified traffic accident, initial encounter
CPT/HCPCS: 70450; 72125; 99282

== ENCOUNTER 2023-01-26 15:03 | Emergency (ER) | payer OTHER, SELFPAY ==
[2023-01-26 15:04] VITALS: BP 117/67; PULSE 101; RESP 18; TEMP 36; O2SAT 97
[2023-01-26 17:10] LABS: Mucous, Urine 0 SEEN /hpf (<or=2+); Red Blood Cells-Urine 0 SEEN /hpf (0-5)
[2023-01-26 17:20] LABS: Color, Urine Yellow (Yellow); Glucose, Dipstick 1000 mg/dl (Normal); Ketone-Dipstick Negative (Negative); Leukocyte Esterase-Dipstick 500 /ul (Negative); Nitrite-Dipstick Negative (Negative); Occult Blood-Urine 150 /ul (Negative); Protein-Dipstick Negative (Negative); Urine Bilirubin Dipstick Negative (Negative); Urine Clarity Cloudy (Clear); Urine Urobilinogen Normal (Normal)
[2023-01-26 17:32] LABS: Bacteria 1+ /hpf (None Seen); Squamous Epithelial Cells - UA 0-5 SEEN /hpf (5-10); White Blood Cells >100 SEEN /hpf (0-5)
[2023-01-26 17:33] LABS: Yeast-Urine RARE /hpf (None Seen)
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
== END 2023-01-26 17:50 | disposition left against medical advice (07) ==
LOC: ED 19:08
DX: Z53.21 Procedure and treatment not carried out due to patient leaving prior to being seen by health care provider (principal)
CPT/HCPCS: 81001

== ENCOUNTER 2023-01-27 21:20 | Inpatient (IN) | payer OTHER, SELFPAY ==
[2023-01-27 21:22] VITALS: BP 119/72; PULSE 108; RESP 15; TEMP 36.8; O2SAT 96
--- NOTE | 2023-01-27 21:36 | RAD_ITS ---
INDICATION: Left lower extremity redness, edema, and pain EXAMINATION/TECHNIQUE: X-RAY - LEFT XR Tibia/Fibula 2 Views 3 VIEWS COMPARISON: None. FINDINGS: SOFT TISSUES: Diffuse swelling. No gas or radiopaque foreign body. BONES/JOINTS: No acute fracture or subluxation. No finding of periosteal reaction or bone erosion. Distal tibiofibular and ankle mortise degenerative change. No sclerotic or destructive changes observed. RAD/Tibia & Fibula 2 Views IMPRESSION: Diffuse swelling without finding of bone involvement. Ankle DJD. Electronically Signed: Rell Sim MD at 22:52 EST ,
--- NOTE | 2023-01-27 21:37 | EKG12_ITS ---
Test Reason : DYSRHYTHMIA Blood Pressure : / mmHG Vent. Rate : 098 BPM Atrial Rate : 098 BPM P-R Int : 140 ms QRS Dur : 072 ms QT Int : 324 ms P-R-T Axes : 032 030 031 degrees QTc Int : 413 ms Normal sinus rhythm Low voltage QRS Borderline ECG Confirmed by FLORA SHEIKH, ALBA ([id number]), news editor YVONNE CLARK ([id number]) on 01/29/2023 9:40:54 AM Referred By: NENITA Confirmed By:ALBA HINES MD
--- NOTE | 2023-01-27 21:38 | EX.ED.DYSGE1 ---
HPI History of Present Illness Chief Complaint: Cellulitis Narrative Narrative: Patient presents with left lower extremity erythema and swelling as well as fevers. She has a history of cellulitis and this is just like it, she was here last night but did not want to wait in the waiting room. She does have a history of sepsis and septic shock from cellulitis. She was also told she may have a UTI based on a urinalysis that was done at the [facility]. She has no cough or congestion. [facility] Medical History Cervical radicular pain Chest pain Dehydration Diabetes Elevated lactic acid level History of type 1 diabetes mellitus Hyperglycemia Hypothyroidism Hypoxia Lung abscess Pneumonia due to COVID-19 virus Seizures Septic shock Steroid-induced hyperglycemia Wegeners granulomatosis Home Medications levothyroxine 200 mcg tablet 200 mcg PO DAILY thyroid 05/10/20 [History Last Taken 06/19/20] levetiracetam 500 mg tablet 1,000 mg PO BID seizures 06/15/20 [History Last Taken 06/19/20] insulin glargine 100 unit/mL (3 mL) subcutaneous pen 45 units subcut QHS diabetes 07/14/20 [History Last Taken 08/08/21] insulin lispro 100 unit/mL subcutaneous pen 14 unit subcut TIDCM diabetes 07/14/20 [History Last Taken Unknown] cholecalciferol (vitamin D3) 1,250 mcg (50,000 unit) capsule 1,250 mcg PO QWEEK Check with primary doctor 07/30/20 [History Last Taken 01/07/22 10:00] gabapentin 600 mg tablet 1,200 mg PO QHS pain 07/30/20 [History Last Taken Unknown] gabapentin 600 mg tablet 900 mg PO DAILY pain 07/30/20 [History Last Taken Unknown] ferrous sulfate 325 mg (65 mg iron) tablet,delayed release 325 mg PO DAILY low iron 10/22/20 [History Last Taken Unknown] pseudoephedrine-guaifenesin ER 60 mg-600 mg tablet,extend release 12hr (Mucinex D) 2 tab PO BID cold symptoms #20 tabs 08/09/21 [Rx Last Taken Unknown] buspirone 10 mg tablet 10 mg PO BID Check with primary doctor 01/16/22 [History Last Taken Unknown] cyclobenzaprine 10 mg tablet 10 mg PO TID Check with primary doctor 01/16/22 [History Last Taken Unknown] duloxetine 60 mg capsule,delayed release 60 mg PO DAILY Check with primary doctor 01/16/22 [History Last Taken Unknown] furosemide 20 mg tablet (Lasix) 20 mg PO DAILY Check with primary doctor 01/16/22 [History Last Taken Unknown] hydroxyzine pamoate 50 mg capsule 50 mg PO 4X/DAY PRN PRN Anxiety 01/16/22 [History Last Taken Unknown] melatonin 3 mg tablet 3 mg PO QHS insomnia 01/16/22 [History Last Taken Unknown] omeprazole 20 mg capsule,delayed release 20 mg PO DAILY gerd 01/16/22 [History Last Taken Unknown] cephalexin 500 mg capsule 500 mg PO TID #12 caps 01/22/22 [Rx Last Taken Unknown] levofloxacin 750 mg tablet 750 mg PO QHS 4 days #4 tabs 02/12/22 [Rx Last Taken Unknown] Allergy/AdvReac Type Severity Reaction Status Date / Time NSAIDS (Non-Steroidal Allergy Swelling Verified 01/27/23 21:26 Anti-Inflamma ketorolac [From Toradol] AdvReac headache Verified 01/27/23 21:26 prednisone AdvReac PT UNSURE Verified 01/27/23 21:26 OF REACTION tramadol AdvReac headache Verified 01/27/23 21:26 Family History Grandfather COPD (chronic obstructive pulmonary disease) Surgical History H/O: hysterectomy Hx of appendectomy Social History household members: none Smoking Status: Current every day smoker tobacco type: cigarettes Tobacco: How many years used: 7 substance use type: does not use ROS ROS ED ROS Narrative Past medical history: Reviewed, includes diabetes, hypothyroidism, history of cellulitis but shock Medications: Reviewed Social history: Lives with Review of systems: All systems negative except as indicated General: Fevers as in HPI Eyes: No visual changes ENT: No upper airway congestion, normal voice Neck: No neck pain Cardiovascular: No chest pain Respiratory: No shortness of breath or cough Gastrointestinal: No abdominal pain, nausea vomiting or diarrhea Genitourinary: No dysuria Musculoskeletal: Left lower extremity cellulitis as in HPI Skin: No rash Neurological: No memory loss, confusion or any focal weakness Psych: No recent behavioral changes EXAM Physical Exam Narrative Exam Narrative: Physical exam General: Patient appears uncomfortable. She is chronically ill. Head: Normocephalic, Atraumatic Eyes: Conjunctiva not pale ENT: Moist mucous membranes Neck: Supple, Nontender, No lymphadenopathy Cardiovascular: Regular tachycardia no obvious murmur Respiratory: No distress, CTA bilaterally Abdomen: Soft, Nontender, Nondistended Back: Nontender, Normal Inspection. Negative for: CVA tenderness Extremities: Edema erythema and calor left lower extremities progressing to the left inner thigh area. No lymphangitic streaking. Skin: As above Neurological: Alert, Normal Strength, Normal Sensation Const Vital Signs: 01/27/23 21:22 01/27/23 22:13 Temperature 98.3 F Temperature Source Temporal Pulse Rate 108 H Respiratory Rate 15 Blood Pressure 119/72 Blood Pressure Mean 87 Pulse Ox 96 98 Oxygen Delivery Method Room Air Room Air MDM MDM MDM Narrative Medical decision making narrative: Patient has obvious cellulitis with tachycardia subjective fevers at home and leukocytosis, she is a diabetic. Patient was given antibiotics. Because of the severity of her symptoms patient will be admitted. She will be turned over to the oncoming ED physician for final disposition. Lab Data Labs: Laboratory Results - last 24 hr 01/27/23 21:47 WBC 12.1 H RBC 3.77 L Hgb 10.5 L Hct 31.7 L MCV 84.1 MCH 27.9 MCHC 33.1 RDW Std Deviation 40.3 RDW Coeff of Tere 13.2 Plt Count 262 MPV 9.1 Immature Gran % (Auto) 0.600 Neut % (Auto) 69.3 Lymph % (Auto) 18.0 L Preston % (Auto) 10.8 H Eos % (Auto) 0.9 Baso % (Auto) 0.4 Absolute Neuts (auto) 8.4 H Absolute Lymphs (auto) 2.17 Nucleated RBC % 0 EKG Initial EKG: Comments: Sinus rhythm with a rate of 99. Normal VT and QTc intervals. No ischemic changes. Interpreted by emergency doctor Discharge Plan Dx/Rx/DC Orders Clinical Impression: Cellulitis, Fever, Acute dehydration Disposition Disposition: Acute Care Hospital [facility]
[2023-01-27 22:06] LABS: Absolute Lymphocyte Count 2.17 X10^3/uL (0.83-4.51); Absolute Neutrophil Count 8.4 X10^3/uL (2.0-7.7); Basophil# 0.05 X10^3/uL; Basophil% 0.4 % (0-1); Eosinophil# 0.11 X10^3/uL; Eosinophils% 0.9 % (0-5); Hematocrit 31.7 % (37-47); Hemoglobin 10.5 g/dL (12.0-15.0); Lymphocyte # 2.17 X10^3/ul (0.83-4.51); Mean Corp Hgb Conc 33.1 g/dL (32-36); Mean Corpuscular Hgb 27.9 pg (27.0-32.0); Mean Corpuscular Volume 84.1 fL (81-99); Mean Platelet Vol. 9.1 fl (6.2-12.0); Monocyte% 10.8 % (0-10); NRBC Flagged by Analyzer 0 % (0-5); Neutrophil # 8.37 X10^3/uL (2.7-7.7); Neutrophil % 69.3 % (47-70); Platelet Count 262 K/mm3 (150-450); RBC Distribution Width CV 13.2 % (11.6-14.6); RBC Distribution Width SD 40.3 fl (35.1-43.9); Red Blood Count 3.77 M/mm3 (4.2-5.4); White Blood Count 12.1 K/mm3 (4.4-11.0)
[2023-01-27 22:13] VITALS: O2SAT 98
[2023-01-27 22:21] LABS: Mucous, Urine 0 SEEN /hpf (<or=2+); Red Blood Cells-Urine 0 SEEN /hpf (0-5)
[2023-01-27 22:24] VITALS: BP 109/68; PULSE 74; RESP 19; TEMP 37.2; O2SAT 99; BMI 25.0
[2023-01-27 22:30] LABS: Color, Urine Yellow (Yellow); Glucose, Dipstick 1000 mg/dl (Normal); Ketone-Dipstick Negative (Negative); Leukocyte Esterase-Dipstick 500 /ul (Negative); Nitrite-Dipstick Positive (Negative); Occult Blood-Urine 50 /ul (Negative); Protein-Dipstick Negative (Negative); Urine Bilirubin Dipstick Negative (Negative); Urine Clarity Sl. Cloudy (Clear); Urine Urobilinogen Normal (Normal)
--- NOTE | 2023-01-27 22:30 | RAD_ITS ---
INDICATION: Fever EXAMINATION/TECHNIQUE: X-RAY - XR Chest 1 View COMPARISON: 02/12/2022 FINDINGS: LUNGS: Right lower lung areas of atelectasis are similar to 02/12/2022. No consolidation, edema or effusion. No pneumothorax. MEDIASTINUM AND CARDIOVASCULAR STRUCTURES: Cardiac silhouette not enlarged. Central airways and mediastinal contour are unremarkable. RAD/Chest 1 View (Portable) IMPRESSION: No radiographic evidence of acute cardiopulmonary disease. Electronically Signed: Rell Sim MD at 22:50 EST ,
[2023-01-27 22:35] LABS: Erythrocyte Sedimentation Rate 114 mm/hr (0-30); International Normalized Ratio 1.1; Prothrombin Time (Protime)PT. 14.1 SECONDS (11.7-14.9)
[2023-01-27 22:35] LABS: White Blood Cells 50-100 SEEN /hpf (0-5)
[2023-01-27 22:36] LABS: Partial Thromboplast Time 33.9 Seconds (24.1-36.2)
[2023-01-27 22:36] LABS: Squamous Epithelial Cells - UA 5-10 SEEN /hpf (5-10)
[2023-01-27 22:37] LABS: Bacteria 1+ /hpf (None Seen)
[2023-01-27] MEDS: Morphine 4 MG/ML Syringe IV (22:38)
[2023-01-27 22:39] LABS: ALB/GLOB Ratio 0.6 RATIO (0.9-2.4); AST(SGOT) 15 U/L (15-37); Alanine Aminotransfer ALT/SGPT 11 U/L (13-56); Albumin, Serum 3.1 g/dL (3.2-5.0); Alkaline Phosphatase 133 U/L (45-117); Anion Gap 8 (5-15); BUN 12 mg/dL (7-18); BUN/Creat Ratio 9.7 RATIO (10-20); Calcium,Total 9.2 mg/dL (8.5-10.1); Chloride 89 mmol/L (98-107); Creatinine, Serum 1.24 mg/dL (0.55-1.02); EST Glomerular Filtration Rate 48 mL/min (>60); Est Glom Filt Rate - Afr Amer 58 mL/min (>60); Estimated Creatinine Clearance 51.61 ml/min; Globulin 5.2 g/dL (2.2-4.2); Glucose 556 mg/dL (74-106); Potassium 4.4 mmol/L (3.5-5.1); Protein, Total 8.3 g/dL (6.4-8.2); Sodium Level 127 mmol/L (136-145)
[2023-01-27] MEDS: Ondansetron 4 MG/2 ML Vial IV (22:39)
[2023-01-27] MEDS: Vancomycin IV 1,000 MG/200 ML BAG 200 MG IV (22:55)
--- NOTE | 2023-01-27 22:55 | EX.ED.DYSGE1 ---
HPI History of Present Illness Chief Complaint: Cellulitis [facility] Medical History Cervical radicular pain Chest pain Dehydration Diabetes Elevated lactic acid level History of type 1 diabetes mellitus Hyperglycemia Hypothyroidism Hypoxia Lung abscess Pneumonia due to COVID-19 virus Seizures Septic shock Steroid-induced hyperglycemia Wegeners granulomatosis Home Medications levothyroxine 200 mcg tablet 200 mcg PO DAILY thyroid 05/10/20 [History Last Taken 06/19/20] levetiracetam 500 mg tablet 1,000 mg PO BID seizures 06/15/20 [History Last Taken 06/19/20] insulin glargine 100 unit/mL (3 mL) subcutaneous pen 45 units subcut QHS diabetes 07/14/20 [History Last Taken 08/08/21] insulin lispro 100 unit/mL subcutaneous pen 14 unit subcut TIDCM diabetes 07/14/20 [History Last Taken Unknown] cholecalciferol (vitamin D3) 1,250 mcg (50,000 unit) capsule 1,250 mcg PO QWEEK Check with primary doctor 07/30/20 [History Last Taken 01/07/22 10:00] gabapentin 600 mg tablet 1,200 mg PO QHS pain 07/30/20 [History Last Taken Unknown] gabapentin 600 mg tablet 900 mg PO DAILY pain 07/30/20 [History Last Taken Unknown] ferrous sulfate 325 mg (65 mg iron) tablet,delayed release 325 mg PO DAILY low iron 10/22/20 [History Last Taken Unknown] pseudoephedrine-guaifenesin ER 60 mg-600 mg tablet,extend release 12hr (Mucinex D) 2 tab PO BID cold symptoms #20 tabs 08/09/21 [Rx Last Taken Unknown] buspirone 10 mg tablet 10 mg PO BID Check with primary doctor 01/16/22 [History Last Taken Unknown] cyclobenzaprine 10 mg tablet 10 mg PO TID Check with primary doctor 01/16/22 [History Last Taken Unknown] duloxetine 60 mg capsule,delayed release 60 mg PO DAILY Check with primary doctor 01/16/22 [History Last Taken Unknown] furosemide 20 mg tablet (Lasix) 20 mg PO DAILY Check with primary doctor 01/16/22 [History Last Taken Unknown] hydroxyzine pamoate 50 mg capsule 50 mg PO 4X/DAY PRN PRN Anxiety 01/16/22 [History Last Taken Unknown] melatonin 3 mg tablet 3 mg PO QHS insomnia 01/16/22 [History Last Taken Unknown] omeprazole 20 mg capsule,delayed release 20 mg PO DAILY gerd 01/16/22 [History Last Taken Unknown] cephalexin 500 mg capsule 500 mg PO TID #12 caps 01/22/22 [Rx Last Taken Unknown] levofloxacin 750 mg tablet 750 mg PO QHS 4 days #4 tabs 02/12/22 [Rx Last Taken Unknown] Allergy/AdvReac Type Severity Reaction Status Date / Time NSAIDS (Non-Steroidal Allergy Swelling Verified 01/27/23 21:26 Anti-Inflamma ketorolac [From Toradol] AdvReac headache Verified 01/27/23 21:26 prednisone AdvReac PT UNSURE Verified 01/27/23 21:26 OF REACTION tramadol AdvReac headache Verified 01/27/23 21:26 Family History Grandfather COPD (chronic obstructive pulmonary disease) Surgical History H/O: hysterectomy Hx of appendectomy Social History household members: none Smoking Status: Current every day smoker tobacco type: cigarettes Tobacco: How many years used: 7 substance use type: does not use EXAM Physical Exam Const Vital Signs: 01/27/23 21:22 01/27/23 22:13 01/27/23 22:24 Temperature 98.3 F 98.9 F Temperature Source Temporal Temporal Pulse Rate 108 H 74 Respiratory Rate 15 19 H Blood Pressure 119/72 109/68 Blood Pressure Mean 87 81 Pulse Ox 96 98 99 Oxygen Delivery Method Room Air Room Air Room Air MDM MDM MDM Narrative Medical decision making narrative: Patient was turned over to me pending results of most of her studies. I believe only her CBC was back at that time. I went to see and evaluate the patient. I done my independent history and exam. She states all the symptoms really started on Thursday with erythema creeping up her leg from her toes on the left foot. She has gotten progressive swelling. She has had fevers and chills with rigors at home. No nausea vomiting. She has been having some trouble managing her blood sugars because she lost a lot of weight recently and she is having more difficulty adjusting insulin. She has had infections of this leg before and has had sepsis as a result. She is not currently on antibiotics. Exam is consistent with significant erythema warmth and swelling of her left leg. It is creeping up into the thigh and the medial aspect. No indication of joint involvement on exam. I have reviewed the patient's labs. White count is elevated at 12.1. Hemoglobin is low at 10.5 but this is really within her range looking back over her history. Electrolytes show some mildly low sodium but a lot of this is factitious due to her elevated glucose of 556. This glucose is being treated with insulin. Mild elevation in creatinine of 1.24. But she reports stage III kidney disease. Both C-reactive protein and ESR are quite high. Urine also shows signs of infection with cloudy urine positive nitrites and 50-100 white cells with 1+ bacteria. However she has already been treated with both Zosyn and vancomycin. Coagulation studies are normal. Lactic acid is just at the high end at 2.0. With the rapid progression of this, history of sepsis, currently meeting sepsis criteria, elevated blood sugar, systemic symptoms of rigors and generalized malaise, I do not think this is appropriate for outpatient therapy. For this reason I am discussing the case directly with the hospitalist who is in the emergency department at this time. My independent interpretation of the patient's single view chest x-ray shows a little bit of flattening at the right base possible atelectasis. Final reading is no radiographic evidence of acute cardiopulmonary disease. My independent reading of the patient's three-view left lower extremity/tib-fib x-ray shows diffuse edema. I do not see definitive bony involvement. I do not see gas in the tissues. Her symptoms are much more consistent with cellulitis than DVT. I do not have the ability to do ultrasounds at this time. But she has elevated white count reported fevers and chills a source of infection through her toes with warmth and spreading erythema in the anterior part of her gonzalez where deep veins do not reside. For this reason I think this is cellulitis. Although her sugar is significantly elevated, there is not indication of DKA. Lab Data Attestation: I reviewed the patient's lab results. Labs: Laboratory Results - last 24 hr 01/27/23 01/27/23 01/27/23 21:15 21:47 21:47 WBC 12.1 H RBC 3.77 L Hgb 10.5 L Hct 31.7 L MCV 84.1 MCH 27.9 MCHC 33.1 RDW Std Deviation 40.3 RDW Coeff of Tere 13.2 Plt Count 262 MPV 9.1 Immature Gran % (Auto) 0.600 Neut % (Auto) 69.3 Lymph % (Auto) 18.0 L Foard % (Auto) 10.8 H Eos % (Auto) 0.9 Baso % (Auto) 0.4 Absolute Neuts (auto) 8.4 H Absolute Lymphs (auto) 2.17 Nucleated RBC % 0 ESR 114 H PT INR APTT Sodium 127 L Potassium 4.4 Chloride 89 L Carbon Dioxide 30.0 Anion Gap 8 BUN 12 Creatinine 1.24 H Estim Creat Clear Calc 51.61 Est GFR (MDRD) Af Amer 58 L Est GFR (MDRD) Non-Af 48 L BUN/Creatinine Ratio 9.7 L Glucose 556 H* Lactic Acid Calcium 9.2 Total Bilirubin 0.50 AST 15 ALT 11 L Alkaline Phosphatase 133 H C-React Prot Ext Range 124.00 H Total Protein 8.3 H Albumin 3.1 L Globulin 5.2 H Albumin/Globulin Ratio 0.6 L Urine Color Yellow Urine Clarity Sl. Cloudy Urine pH 6.0 Ur Specific Russell 1.010 Urine Protein Negative Urine Glucose (UA) 1000 H Urine Ketones Negative Urine Occult Blood 50 H Urine Nitrite Positive H Urine Bilirubin Negative Urine Urobilinogen Normal Ur Leukocyte Esterase 500 H Urine RBC 0 SEEN Urine WBC 50-100 SEEN Ur Squamous Epith Cells 5-10 SEEN Urine Bacteria 1+ Urine Mucus 0 SEEN 01/27/23 01/27/23 21:47 21:47 WBC RBC Hgb Hct MCV MCH MCHC RDW Std Deviation RDW Coeff of Tere Plt Count MPV Immature Gran % (Auto) Neut % (Auto) Lymph % (Auto) Foard % (Auto) Eos % (Auto) Baso % (Auto) Absolute Neuts (auto) Absolute Lymphs (auto) Nucleated RBC % ESR PT 14.1 INR 1.1 APTT 33.9 Sodium Potassium Chloride Carbon Dioxide Anion Gap BUN Creatinine Estim Creat Clear Calc Est GFR (MDRD) Af Amer Est GFR (MDRD) Non-Af BUN/Creatinine Ratio Glucose Lactic Acid 2.0 Calcium Total Bilirubin AST ALT Alkaline Phosphatase C-React Prot Ext Range Total Protein Albumin Globulin Albumin/Globulin Ratio Urine Color Urine Clarity Urine pH Ur Specific Russell Urine Protein Urine Glucose (UA) Urine Ketones Urine Occult Blood Urine Nitrite Urine Bilirubin Urine Urobilinogen Ur Leukocyte Esterase Urine RBC Urine WBC Ur Squamous Epith Cells Urine Bacteria Urine Mucus Radiography Diagnostic Testing: Clinical Impression(s) from Imaging Studies Tibia/Fibula X-Ray 01/27/23 21:36 IMPRESSION: Diffuse swelling without finding of bone involvement. Ankle DJD. Electronically Signed: Rell Sim MD at 22:52 EST , Chest X-Ray 01/27/23 22:30 IMPRESSION: No radiographic evidence of acute cardiopulmonary disease. Electronically Signed: Rell Sim MD at 22:50 EST , Discharge Plan Dx/Rx/DC Orders Clinical Impression: Cellulitis, Fever, Acute dehydration, Hyperglycemia, Sepsis Disposition Disposition: [facility]
[2023-01-27] MEDS: Insulin Lispro 100 UNIT/ML INSULN.PEN 15 UNIT SC (23:07)
[2023-01-27 23:13] VITALS: BP 120/73; PULSE 101; RESP 18; TEMP 37.1; O2SAT 98
--- NOTE | 2023-01-27 23:15 | HP.PCM.HOS_ITS ---
[facility] - General General Date of Admission: 01/27/23 Date of Service: 01/27/23 Chief Complaint: Swelling of left leg HPI Narrative THURSDAY MARY, is a 52 F with a significant history of a type 1 diabetes; hypothyroidism; seizure disorder on antiepileptic drugs.; septic shock and tobacco abuse who presents to the emergency department with a 2-day history of progressively worsening swelling in her left leg. Associated with her symptoms is pain and erythema of her left leg. At the emergency department patient reportedly also noticed some redness around the calf of her right leg. Associated with her symptoms is a fever with temperature of about 101 Fahrenheit at home. Also she reports chills and rigors. Further she reports headache. Her appetite has been on and off. [facility] Medical History Cervical radicular pain Chest pain Dehydration Diabetes Elevated lactic acid level History of type 1 diabetes mellitus Hyperglycemia Hypothyroidism Hypoxia Lung abscess Pneumonia due to COVID-19 virus Seizures Septic shock Steroid-induced hyperglycemia Wegeners granulomatosis Home Medications levothyroxine 200 mcg tablet 200 mcg PO DAILY thyroid 05/10/20 [History Last Taken 06/19/20] levetiracetam 500 mg tablet 1,000 mg PO BID seizures 06/15/20 [History Last Taken 06/19/20] insulin glargine 100 unit/mL (3 mL) subcutaneous pen 45 units subcut QHS diabetes 07/14/20 [History Last Taken 08/08/21] insulin lispro 100 unit/mL subcutaneous pen 14 unit subcut TIDCM diabetes 07/14/20 [History Last Taken Unknown] cholecalciferol (vitamin D3) 1,250 mcg (50,000 unit) capsule 1,250 mcg PO QWEEK Check with primary doctor 07/30/20 [History Last Taken 01/07/22 10:00] gabapentin 600 mg tablet 1,200 mg PO QHS pain 07/30/20 [History Last Taken Unknown] gabapentin 600 mg tablet 900 mg PO DAILY pain 07/30/20 [History Last Taken Unknown] ferrous sulfate 325 mg (65 mg iron) tablet,delayed release 325 mg PO DAILY low iron 10/22/20 [History Last Taken Unknown] pseudoephedrine-guaifenesin ER 60 mg-600 mg tablet,extend release 12hr (Mucinex D) 2 tab PO BID cold symptoms #20 tabs 08/09/21 [Rx Last Taken Unknown] buspirone 10 mg tablet 10 mg PO BID Check with primary doctor 01/16/22 [History Last Taken Unknown] cyclobenzaprine 10 mg tablet 10 mg PO TID Check with primary doctor 01/16/22 [Hi story Last Taken Unknown] duloxetine 60 mg capsule,delayed release 60 mg PO DAILY Check with primary doctor 01/16/22 [History Last Taken Unknown] furosemide 20 mg tablet (Lasix) 20 mg PO DAILY Check with primary doctor 01/16/22 [History Last Taken Unknown] hydroxyzine pamoate 50 mg capsule 50 mg PO 4X/DAY PRN PRN Anxiety 01/16/22 [History Last Taken Unknown] melatonin 3 mg tablet 3 mg PO QHS insomnia 01/16/22 [History Last Taken Unknown] omeprazole 20 mg capsule,delayed release 20 mg PO DAILY gerd 01/16/22 [History Last Taken Unknown] cephalexin 500 mg capsule 500 mg PO TID #12 caps 01/22/22 [Rx Last Taken Unknown] levofloxacin 750 mg tablet 750 mg PO QHS 4 days #4 tabs 02/12/22 [Rx Last Taken Unknown] Allergy/AdvReac Type Severity Reaction Status Date / Time NSAIDS (Non-Steroidal Allergy Swelling Verified 01/27/23 21:26 Anti-Inflamma ketorolac [From Toradol] AdvReac headache Verified 01/27/23 21:26 prednisone AdvReac PT UNSURE Verified 01/27/23 21:26 OF REACTION tramadol AdvReac headache Verified 01/27/23 21:26 Family History Grandfather COPD (chronic obstructive pulmonary disease) Surgical History H/O: hysterectomy Hx of appendectomy Social History household members: none Smoking Status: Current every day smoker tobacco type: cigarettes Tobacco: How many years used: 7 substance use type: does not use ROS ROS Narrative Pertinent positives and pertinent negatives as noted in HPI. All other systems were reviewed and are negative Vital Signs Vital Signs Vital Signs: 01/27/23 21:22 01/27/23 22:13 01/27/23 22:24 Temperature 98.3 F 98.9 F Temperature Source Temporal Temporal Pulse Rate 108 H 74 Respiratory Rate 15 19 H Blood Pressure 119/72 109/68 Blood Pressure Mean 87 81 Pulse Ox 96 98 99 Oxygen Delivery Method Room Air Room Air Room Air 01/27/23 23:13 Temperature 98.8 F Temperature Source Temporal Pulse Rate 101 H Respiratory Rate 18 Blood Pressure 120/73 Blood Pressure Mean 88 Pulse Ox 98 Oxygen Delivery Method Room Air Weight Weight: 72.575 kg Body Mass Index (BMI) 25.0 Physical Exam Narrative Physical exam: General: Well-nourished, well-developed. Head: Normocephalic, atraumatic, no tenderness Eyes: Vision is grossly intact. EOMI ENT, no trauma, moist mucous membranes, no rhinorrhea Neck: Nontender, No thyromegaly. CVS: Regular rate and rhythm. S1-S2 present. No murmur, gallop or rub. Respiratory : clear to auscultation bilaterally, chest wall nontender, no wheezing Abdomen: Soft, nontender, nondistended, normal bowel sounds, no masses : Deferred Back: Nontender, no CVA tenderness, no midline spinal tenderness, deformities, step-offs Extremities: Swelling on bilateral legs left worse than right. Tender left leg. Erythema bilateral legs left way worse than right. Ulceration of multiple toes of bilateral feet. Skin: Butterfly rash on face. Normal color. Neuro: Alert, oriented, cranial nerves II through XII grossly intact. Psychiatry: Patient looks worried. Results Lab / Micro Data Result Diagrams: 01/27/23 21:47 01/27/23 21:47 Labs: Laboratory Results - last 24 hr 01/27/23 21:15: Urine Color Yellow, Urine Clarity Sl. Cloudy, Urine pH 6.0, Ur Specific [place] 1.010, Urine Protein Negative, Urine Glucose (UA) 1000 H, Urine Ketones Negative, Urine Occult Blood 50 H, Urine Nitrite Positive H, Urine Bilirubin Negative, Urine Urobilinogen Normal, Ur Leukocyte Esterase 500 H, Urine RBC 0 SEEN, Urine WBC 50-100 SEEN, Ur Squamous Epith Cells 5-10 SEEN, Urine Bacteria 1+, Urine Mucus 0 SEEN 01/27/23 21:47: WBC 12.1 H, RBC 3.77 L, Hgb 10.5 L, Hct 31.7 L, MCV 84.1, MCH 27.9, MCHC 33.1, RDW Std Deviation 40.3, RDW Coeff of Tere 13.2, Plt Count 262, MPV 9.1, Immature Gran % (Auto) 0.600, Neut % (Auto) 69.3, Lymph % (Auto) 18.0 L , Blount % (Auto) 10.8 H, Eos % (Auto) 0.9, Baso % (Auto) 0.4, Absolute Neuts (auto) 8.4 H, Absolute Lymphs (auto) 2.17, Nucleated RBC % 0, ESR 114 H 01/27/23 21:47: Sodium 127 L, Potassium 4.4, Chloride 89 L, Carbon Dioxide 30.0, Anion Gap 8, BUN 12, Creatinine 1.24 H, Estim Creat Clear Calc 51.61, Est GFR (MDRD) Af Amer 58 L, Est GFR (MDRD) Non-Af 48 L, BUN/Creatinine Ratio 9.7 L, Glucose 556 H*, Calcium 9.2, Total Bilirubin 0.50, AST 15, ALT 11 L, Alkaline Phosphatase 133 H, C-React Prot Ext Range 124.00 H, Total Protein 8.3 H, Albumin 3.1 L, Globulin 5.2 H, Albumin/Globulin Ratio 0.6 L 01/27/23 21:47: PT 14.1, INR 1.1, APTT 33.9 01/27/23 21:47: Lactic Acid 2.0 Radiology Impression Tibia/Fibula X-Ray 01/27/23 21:36 IMPRESSION: Diffuse swelling without finding of bone involvement. Ankle DJD. Electronically Signed: Rell Sim MD at 22:52 EST , Chest X-Ray 01/27/23 22:30 IMPRESSION: No radiographic evidence of acute cardiopulmonary disease. Electronically Signed: Rell Sim MD at 22:50 EST , Assessment & Plan Assessment/Plan (1) Cellulitis: (2) Hyperglycemia: (3) Diabetes mellitus type 1: PLAN: Plan Cellulitis of bilateral legs without sepsis. Patient meets SIRS criteria with heart rate of more than 90 on presentation. White count is 12,100 qSOFA is 0 There is no organ dysfunction ESR is 114. CRP is 124 Clinically the swelling on patient's left leg looks very concerning. Tubular/fibula x-ray showed diffuse swelling without finding of bony involvement. Ankle DJD. Tibia/fibula x-ray was visualized and independent interpreted and I agree with radiologist interpretation. Started on vancomycin and Zosyn at the emergency department and continued. Morphine as needed for pain. Antiemetics and bowel protocol in place. Ultrasound duplex of bilateral legs. Trend CBC and BMP Blood cultures ordered at the emergency department, follow. Diabetes mellitus with hyperglycemia Reportedly because of patient losing weight her diabetic regimen has been altered. Accu-Chek with correction scale insulin ordered. Continue home basal regimen. Received normal saline bolus in the emergency department. Gentle IV hydration ordered. Diabetic diet. Hyponatremia Sodium presentation was 127. Corrected for glucose sodium is 134. Gentle IV hydration and management of diabetes as above. Trend BMP. DVT prophylaxis: Subcutaneous Lovenox ordered. Charges/Coding Visit Charges Inpatient E&M: 26930 Init Hosp L3
[2023-01-27 23:34] VITALS: BP 123/81; PULSE 94; RESP 17; TEMP 37.3; O2SAT 95
[2023-01-27 23:35] VITALS: O2SAT 94
--- NOTE | 2023-01-27 23:50 | NURSING ---
CALLED THE [facility] FOR AN APPROVAL # [id number]
[2023-01-28] VITALS (7 sets, daily range): BP systolic 114–134; BP diastolic 64–75; PULSE 77–106; RESP 16–18; TEMP 36.9–37.9; O2SAT 85–100; BMI 26.9
[2023-01-28 00:04] LABS: Reflex Lactate? Y
--- NOTE | 2023-01-28 00:37 | VDLE_ITS ---
Reason For Study: Swelling RIGHT LEFT GSV is normal. GSV is normal. CFV is compressible, spontaneous, phasic, CFV is compressible, spontaneous, phasic, competent and demonstrates normal competent, and demonstrates normal augmentation. augmentation. FV is compressible, spontaneous, phasic, FV is compressible, spontaneous, phasic, competent and demonstrates normal competent and demonstrates normal augmentation. augmentation. POP V is compressible, spontaneous, phasic, POP V is compressible, spontaneous, phasic, competent and demonstrates normal competent and demonstrates normal augmentation. augmentation. T/P Trunk is compressible. T/P Trunk is compressible. PTV is compressible. PTV is compressible. RT PerV is compressible. LT PerV is compressible. Procedure This is a venous duplex using B-mode, color flow and spectral Doppler. Exam performed portable in patient room. The study was technically difficult. A preliminary report was called and/or faxed to Kristi JOSHI. VL/Venous Duplex US - Sunil Extrem Interpretation Summary Deep veins of the lower extremities are bilaterally patent and compressible seg mentally. There is no evidence of deep vein thrombosis on either side. The great saphenous veins appe ar bilaterally patent and compressible segmentally. Incidental finding, left inguinal 2.79 cm heterogeneous structure Ordering Physician: Levon Galvin Referring Physician: [facility] Performed By: Ana Tarango RVT
[2023-01-28] MEDS: 0.9% Normal Saline 1,000 ML 75 ML IV ×2 (00:53→13:42)
--- NOTE | 2023-01-28 00:53 | PCM.RX.CS ---
Consult Pharmacy has been consulted to manage selected antiobiotic: Vancomycin Type of Consult: New start Suspected Infection: Skin/Soft tissue Labs: Sodium 127 mmol/L (136-145) L 01/27/23 21:47 Potassium 4.4 mmol/L (3.5-5.1) 01/27/23 21:47 Chloride 89 mmol/L (98-107) L 01/27/23 21:47 Carbon Dioxide 30.0 mmol/L (21.0-32.0) 01/27/23 21:47 Anion Gap 8 (5-15) 01/27/23 21:47 BUN 12 mg/dL (7-18) 01/27/23 21:47 Creatinine 1.24 mg/dL (0.55-1.02) H 01/27/23 21:47 Est GFR (MDRD) Af Amer 58 mL/min (>60) L 01/27/23 21:47 Est GFR (MDRD) Non-Af 48 mL/min (>60) L 01/27/23 21:47 BUN/Creatinine Ratio 9.7 RATIO (10-20) L 01/27/23 21:47 Glucose 556 mg/dL (74-106) H* 01/27/23 21:47 Goal Trough: 15-20 mcg/mL Pharmacy Plan for Drug Dosing: Pharmacy Service will continue to monitor and adjust dosing as required. Medications Vancomycin HCl 750 mg/ Sodium (Chloride) 265 mls @ 250 mls/hr IV Q12H CHELSEY Discontinued Medications Vancomycin HCl (Vancomycin) 1,000 mg in 200 mls @ 200 mls/hr IV X1 ONE Stop: 01/27/23 23:39 Last Admin: 01/28/23 00:06 Dose: Infused Follow-Up Labs: Trough Vancomycin Labs to be done on [date and time ordered]: 01/29 @ 1030
[2023-01-28] MEDS: Acetaminophen 325 MG Tablet 650 MG PO ×2 (00:55→22:22)
[2023-01-28] MEDS: Morphine 4 MG/ML Syringe IV ×4 (01:15→13:47)
[2023-01-28 04:01] LABS: Absolute Neutrophil Count 7.4 X10^3/uL (2.0-7.7); Basophil# 0.05 X10^3/uL; Basophil% 0.4 % (0-1); Eosinophil# 0.08 X10^3/uL; Eosinophils% 0.7 % (0-5); Hematocrit 27.3 % (37-47); Hemoglobin 9.1 g/dL (12.0-15.0); Lymphocyte % 25.9 % (19-41); Mean Corp Hgb Conc 33.3 g/dL (32-36); Mean Corpuscular Hgb 27.9 pg (27.0-32.0); Mean Corpuscular Volume 83.7 fL (81-99); Mean Platelet Vol. 9.1 fl (6.2-12.0); Monocyte# 1.33 X10^3/uL; Monocyte% 11.1 % (0-10); NRBC Flagged by Analyzer 0 % (0-5); Neutrophil # 7.35 X10^3/uL (2.7-7.7); Neutrophil % 61.4 % (47-70); Platelet Count 209 K/mm3 (150-450); RBC Distribution Width CV 13.1 % (11.6-14.6); RBC Distribution Width SD 39.7 fl (35.1-43.9); Red Blood Count 3.26 M/mm3 (4.2-5.4)
[2023-01-28 04:17] LABS: Anion Gap 7 (5-15); BUN 11 mg/dL (7-18); BUN/Creat Ratio 11.6 RATIO (10-20); Calcium,Total 8.8 mg/dL (8.5-10.1); Chloride 94 mmol/L (98-107); Creatinine, Serum 0.95 mg/dL (0.55-1.02); EST Glomerular Filtration Rate 66 mL/min (>60); Est Glom Filt Rate - Afr Amer 80 mL/min (>60); Estimated Creatinine Clearance 67.36 ml/min; Glucose 188 mg/dL (74-106); Sodium Level 131 mmol/L (136-145)
[2023-01-28] MEDS: 0.9% Saline Lock 10 ML Syringe IV ×4 (04:44→22:11)
[2023-01-28 06:01] LABS: Bedside Glucose 127 mg/dL (74-106)
--- NOTE | 2023-01-28 07:12 | CT_ITS ---
STUDY: CT LEFTLOWER EXTREMITY WITHOUT CONTRAST REASON FOR EXAM: Female, 52 years old. r/o necrotizing fasciitis RADIATION DOSAGE (If Supplied By Facility): CTDIvol = ( 15.35 ) mGy, DLP = ( 1681.63 ) mGycm TECHNIQUE: Thin section transaxial imaging of the ankle was obtained, with sagittal and coronal reconstructed images. Individualized dose optimization techniques were used for this CT. COMPARISON: None. Findings: Mild to moderate subcutaneous edema is present from the left hip down to the left foot with the most pronounced findings from the knee joint down to the ankle. The intramuscular compartments are normal without evidence of edema or abscess formation. No subcutaneous air is present. No abscess is seen in subcutaneous fat. Diffuse reticulation and skin thickening is consistent with cellulitis. There is no evidence of necrotizing fasciitis. The investing fascia of the left lower extremity as written within normal limits. There is normal enhancement of the vascular structures. No deep venous thrombosis is seen. No hemodynamically significant stenosis or plaque is seen in the arteries. Moderate left inguinal lymphadenopathy and to a lesser extent right inguinal lymphadenopathy is consistent with inflammation/infection/reactivity. There is no evidence of osteomyelitis. Normal femoral head, neck, intertrochanteric region and visualized proximal femur. Normal acetabulum. Normal hip joint. Normal superior and inferior pubic rami. Normal pubic symphysis. Normal ischial tuberosity. Normal origin of the hamstring tendons. Normal visualized iliac wing, sacroiliac joint, and sacral ala. Normal visualized soft tissue structures of the pelvis. Normal enhancement of the common femoral and superficial femoral artery as well as the bilateral calf arteries. Normal tibia and fibula. Normal visualized ankle and foot bony structures. The muscles of the thigh and calf are normal. No demonstrated fracture or aggressive process. CT/Extremity Lower WITH Contrast IMPRESSION: 1. Mild to moderate cellulitis with subcutaneous edema and skin thickening of the left leg down to the foot 2. No evidence of osteomyelitis 3. No evidence of necrotizing fasciitis 4. No abscess formation or subcutaneous air is present. 5. Normal bony structures of the left leg Electronically Signed: Ryan Nelson MD at 9:44 EST ,
[2023-01-28 07:26] LABS: Lactic Acid 1.6 mmol/L (0.4-1.9)
[2023-01-28 07:51] LABS: Bedside Glucose 148 mg/dL (74-106)
--- NOTE | 2023-01-28 08:35 | PCM.PN.HOSP ---
Reason for Visit Reason for Visit: Diagnoses Type 1 diabetes mellitus without complications (01/27/23) Cellulitis, unspecified (01/27/23) Hyperglycemia, unspecified (01/27/23) Subjective Subjective Continues to have pain in left leg and is anxious and tearful at times Objective Data Objective Data Vital Signs: Vital Signs Temp Pulse Resp BP Pulse Ox O2 Del Method 99 F 92 16 117/70 97 Room Air 01/28/23 04:29 01/28/23 04:29 01/28/23 04:29 01/28/23 04:29 01/28/23 04:29 01/28/23 04:29 Oxygen Delivery Method Room Air Weight: 77.9 kg Body Mass Index (BMI) 26.9 Intake & Output: Intake and Output for Last 24 Hours 01/26/23 01/27/23 01/28/23 23:59 23:59 23:59 Intake Total 100 / 100 700.5 / 700.5 Balance 100 / 100 700.5 / 700.5 Lab / Micro Data Result Diagrams: 01/28/23 01:55 01/28/23 01:55 Labs: Laboratory Results - last 24 hr 01/27/23 21:15: Urine Color Yellow, Urine Clarity Sl. Cloudy, Urine pH 6.0, Ur Specific [place] 1.010, Urine Protein Negative, Urine Glucose (UA) 1000 H, Urine Ketones Negative, Urine Occult Blood 50 H, Urine Nitrite Positive H, Urine Bilirubin Negative, Urine Urobilinogen Normal, Ur Leukocyte Esterase 500 H, Urine RBC 0 SEEN, Urine WBC 50-100 SEEN, Ur Squamous Epith Cells 5-10 SEEN, Urine Bacteria 1+, Urine Mucus 0 SEEN 01/27/23 21:47: WBC 12.1 H, RBC 3.77 L, Hgb 10.5 L, Hct 31.7 L, MCV 84.1, MCH 27.9, MCHC 33.1, RDW Std Deviation 40.3, RDW Coeff of Tere 13.2, Plt Count 262, MPV 9.1, Immature Gran % (Auto) 0.600, Neut % (Auto) 69.3, Lymph % (Auto) 18.0 L, [place] % (Auto) 10.8 H, Eos % (Auto) 0.9, Baso % (Auto) 0.4, Absolute Neuts (auto) 8.4 H, Absolute Lymphs (auto) 2.17, Nucleated RBC % 0, ESR 114 H 01/27/23 21:47: Sodium 127 L, Potassium 4.4, Chloride 89 L, Carbon Dioxide 30.0, Anion Gap 8, BUN 12, Creatinine 1.24 H, Estim Creat Clear Calc 51.61, Est GFR (MDRD) Af Amer 58 L, Est GFR (MDRD) Non-Af 48 L, BUN/Creatinine Ratio 9.7 L, Glucose 556 H*, Calcium 9.2, Total Bilirubin 0.50, AST 15, ALT 11 L, Alkaline Phosphatase 133 H, C-React Prot Ext Range 124.00 H, Total Protein 8.3 H, Albumin 3.1 L, Globulin 5.2 H, Albumin/Globulin Ratio 0.6 L 01/27/23 21:47: PT 14.1, INR 1.1, APTT 33.9 01/27/23 21:47: Lactic Acid 2.0 01/28/23 01:55: Lactic Acid 1.6 01/28/23 01:55: WBC 12.0 H, RBC 3.26 L, Hgb 9.1 L, Hct 27.3 L, MCV 83.7, MCH 27.9, MCHC 33.3, RDW Std Deviation 39.7, RDW Coeff of Tere 13.1, Plt Count 209, MPV 9.1, Immature Gran % (Auto) 0.500, Neut % (Auto) 61.4, Lymph % (Auto) 25.9, [place] % (Auto) 11.1 H, Eos % (Auto) 0.7, Baso % (Auto) 0.4, Absolute Neuts (auto) 7.4, Absolute Lymphs (auto) 3.10, Nucleated RBC % 0 01/28/23 01:55: Sodium 131 L, Potassium 4.0, Chloride 94 L, Carbon Dioxide 30.0, Anion Gap 7, BUN 11, Creatinine 0.95, Estim Creat Clear Calc 67.36, Est GFR (MDRD) Af Amer 80, Est GFR (MDRD) Non-Af 66, BUN/Creatinine Ratio 11.6, Glucose 188 H, Calcium 8.8 01/28/23 04:31: POC Glucose 127 H 01/28/23 07:30: POC Glucose 148 H Radiography Diagnostic Testing: Radiology Impression Tibia/Fibula X-Ray 01/27/23 21:36 IMPRESSION: Diffuse swelling without finding of bone involvement. Ankle DJD. Electronically Signed: Rell Sim MD at 22:52 EST , Chest X-Ray 01/27/23 22:30 IMPRESSION: No radiographic evidence of acute cardiopulmonary disease. Electronically Signed: Rell Sim MD at 22:50 EST , Physical Exam Narrative General: Alert, oriented, tearful at times HEENT: Atraumatic, normocephalic Eyes: Anicteric, normal conjunctiva, extraocular movements grossly intact Neck: Supple Respiratory: Clear to auscultation bilaterally, normal respiratory effort Cardiovascular: Regular rate and rhythm GI: Soft, nontender, nondistended Extremities: Some swelling and erythema on left leg Musculoskeletal: Moving all extremities Neuro: No overt focal neurological deficits Skin: Irregular rash from tip of toes with poor toenail hygiene up to knee with irregular border, no drainage, fluctuance, purulence suggestive of abscess to be drained Psych: Tearful and anxious Assessment & Plan Assessment/Plan (1) Cellulitis: PLAN: Plan #Left leg cellulitis without sepsis -Reports that the erythema started with her toes and worked its way up her leg, this has been marked and she is on Vanco and Zosyn -ESR was elevated at 114 CRP at 124, will trend -Tib-fib x-ray with no air or fracture -Team to CT due to her reports of pain and that she felt that it was spreading and diffuse swelling without air or fluid collection noted -Duplex of legs obtained -Pain management -Continue fluids -Blood cultures pending #Bacteriuria -Had not complained of urinary complaints but urine culture growing gram-negative lactose 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 machine operator 80,000 100,000, will follow -Is already on broad-spectrum antibiotics #Seizure disorder -Continue Keppra #Hypothyroidism -Continue Synthroid #JOHANN-resolved with fluids #Type 2 diabetes mellitus -Sliding scale insulin and glucose checks, home basal regimen #Depression anxiety and PTSD -Continue home medications -Supportive care #DVT ppx: Subcu Lovenox Elise Nguyen MD Time spent in the patient's overall evaluation,decision-making process, review of diagnostic data, adjustment of management, discussion with other providers, nursing nursing and ancillary staff involved in patient's care documentation, 30 minutes Charges/Coding Visit Charges Inpatient E&M: 31510 Subs Hosp L2
[2023-01-28] MEDS: Enoxaparin 40 MG/0.4 ML Syringe SC (09:07)
[2023-01-28] MEDS: DULoxetine Hcl 60 MG Capsule PO (10:31)
[2023-01-28] MEDS: Levothyroxine 75 MCG Tablet 225 MCG PO (10:32)
[2023-01-28] MEDS: busPIRone 5 MG Tablet 10 MG PO ×2 (10:32→22:11)
[2023-01-28] MEDS: Pantoprazole Sodium 20 MG Tablet PO (10:32)
[2023-01-28] MEDS: levETIRAcetam 1,000 MG Tablet 1000 MG PO ×2 (10:32→22:11)
--- NOTE | 2023-01-28 11:08 | CASEMGMT ---
Addendum entered by Bren Givens 01/28/23 14:51: Received voicemail from Roxy who is covering for Jennifer at the [facility] for SW. TC back to her and left message. Provided her with covering CM phone number for tomorrow if we cannot connect today. Addendum entered by Bren Givens 01/28/23 11:53: TC to SW at [facility], left message requesting returned call. Original Note: ADI JOVEL Assessment: Face to Face with pt for initial transition planning/care coordination assessment. ADI JOVEL introduced self and role at [facility], pt voices understanding and consents to assessment. Pt is A/O x4 and answers all questions appropriately at this time. Pt sitting up in bed in no distress. Care providers, pharmacy, and demographics verified/updated. Admitting Dx: cellulitis PCP:TREVOR Callahan. Pt goes to [facility]. Specialists:rheum and women designer; yovani Samuels [facility]: [facility] Benefit Prescription Benefit: yes LNOK: Serafin Jerry, ; Ilya Mendenhall, son Living Arrangements: Pt lives with and son in a single story home with 3 steps to enter with a grab bar. Pt reports she was I in ADL's up until 4-5 mos ago when her kidneys started hurting. She states her helps with bathing and dressing now. Pt denies concerns at home. Transportation: Pt transports her to medical appts. DME/HHC/SNF: Pt has a toilet riser, rollator, w/c, cane, shower bench, HHS, CGM and insulin with sufficient supplies. Pt denies hx of HHC or SNF stays. [facility] her going to a [facility]. Pt states no concerns with going home at time of dc. Pt states her SW at the [facility] is working on getting her help in the home. She provided ADI JOVEL the card for SW. Jennifer Tran [phone]. Pt states she is 100% service connected. 6 Clicks=20, no therapy ordered. Pt states no further concerns/needs. CM to follow. Advised pt to ask CM if any further question/concerns/needs arise, voices understanding. Pt Goal: Home Plan: Home
[2023-01-28] MEDS: hydrOXYzine PAM 25 MG Capsule 50 MG PO (11:28)
[2023-01-28] MEDS: cycloBENZAPRine HCl 10 MG Tablet PO (11:28)
[2023-01-28] MEDS: oxyCODONE 5 MG Tablet PO ×2 (11:29→20:23)
[2023-01-28] MEDS: Vancomycin IV 1,000 MG/200 ML BAG 200 MG IV ×2 (11:29→22:01)
[2023-01-28] MEDS: Senna/Docusate Sodium 1 Tablet 2 TABLET PO (11:29)
[2023-01-28] MEDS: Insulin Lispro 100 UNIT/ML INSULN.PEN SC ×3 (11:34→22:11)
[2023-01-28 12:01] LABS: Bedside Glucose 254 mg/dL (74-106)
[2023-01-28] MEDS: Ferrous Sulfate 325 MG Tablet PO (13:51)
[2023-01-28] MEDS: Gabapentin 600 MG Tablet PO ×2 (13:57→22:11)
--- NOTE | 2023-01-28 15:43 | CHAPLAIN ---
Type of Pastoral Visit _x__ Initial Visit ___ Follow-up Visit ___ On-call Visit ___ General Patient Visit ___ Spiritual Assessment ___ Family Conference ___ Bereavement ___ Rapid Response ___ Code Blue ___ Other (describe below) Pastoral Care Referral From _x__ Patient ___ Family ___ Nurse ___ Physician ___ Sleeve Presser Operator ___ Power Operator ___ Other (describe below) Sacrament/Intervention ___ Active listening ___ Anointing ___ Restorationism ___ Bereavement ___ Communion ___ Kyleigh exploration ___ ___ Life review _x__ Prayer ___ Reconciliation ___ Sacrament of Sick _x__ Supportive presence ___ Wedding ___ Other (describe below) Pastoral Comments patient was on the phone on first attempt; spouse is in the room and offered support; pt remained on phone so left; returned and spouse is now gone; pt states that she is okay but not okay; pt states that she is not focusing well and so may not be able to have conversation; pt says but you can say a prayer; prayer and presence
[2023-01-28 17:30] LABS: Bedside Glucose 247 mg/dL (74-106)
[2023-01-28] MEDS: MELATONIN 3 MG TABLET PO (22:11)
[2023-01-29] VITALS (10 sets, daily range): BP systolic 102–118; BP diastolic 59–70; PULSE 81–95; RESP 16–18; TEMP 36.3–37.2; O2SAT 94–99
[2023-01-29 00:20] LABS: Bedside Glucose 293 mg/dL (74-106)
[2023-01-29] MEDS: Insulin Lispro 100 UNIT/ML INSULN.PEN SC ×5 (02:54→22:58)
[2023-01-29] MEDS: oxyCODONE 5 MG Tablet PO ×3 (02:55→19:47)
[2023-01-29 06:01] LABS: Absolute Lymphocyte Count 2.02 X10^3/uL (0.83-4.51); Absolute Neutrophil Count 4.4 X10^3/uL (2.0-7.7); Basophil# 0.03 X10^3/uL; Basophil% 0.4 % (0-1); Eosinophil# 0.08 X10^3/uL; Eosinophils% 1.1 % (0-5); Hematocrit 28.4 % (37-47); Lymphocyte # 2.02 X10^3/ul (0.83-4.51); Lymphocyte % 26.8 % (19-41); Mean Corp Hgb Conc 31.7 g/dL (32-36); Mean Corpuscular Hgb 27.6 pg (27.0-32.0); Mean Corpuscular Volume 87.1 fL (81-99); Mean Platelet Vol. 8.9 fl (6.2-12.0); Monocyte# 0.96 X10^3/uL; Monocyte% 12.7 % (0-10); NRBC Flagged by Analyzer 0 % (0-5); Neutrophil # 4.41 X10^3/uL (2.7-7.7); Neutrophil % 58.3 % (47-70); Platelet Count 199 K/mm3 (150-450); RBC Distribution Width CV 13.3 % (11.6-14.6); RBC Distribution Width SD 42.4 fl (35.1-43.9); Red Blood Count 3.26 M/mm3 (4.2-5.4); White Blood Count 7.6 K/mm3 (4.4-11.0)
[2023-01-29 06:12] LABS: Erythrocyte Sedimentation Rate 39 mm/hr (0-30)
[2023-01-29 06:40] LABS: Bedside Glucose 392 mg/dL (74-106)
[2023-01-29] MEDS: Levothyroxine 75 MCG Tablet 225 MCG PO (06:46)
[2023-01-29] MEDS: Gabapentin 600 MG Tablet PO ×3 (06:46→22:58)
[2023-01-29] MEDS: Morphine 4 MG/ML Syringe IV (06:49)
[2023-01-29] MEDS: 0.9% Saline Lock 10 ML Syringe IV (06:50)
[2023-01-29 06:56] LABS: ALB/GLOB Ratio 0.5 RATIO (0.9-2.4); AST(SGOT) 13 U/L (15-37); Alanine Aminotransfer ALT/SGPT 7 U/L (13-56); Albumin, Serum 2.1 g/dL (3.2-5.0); Alkaline Phosphatase 96 U/L (45-117); Anion Gap 4 (5-15); BUN 8 mg/dL (7-18); BUN/Creat Ratio 8.6 RATIO (10-20); Calcium,Total 8.4 mg/dL (8.5-10.1); Chloride 103 mmol/L (98-107); Creatinine, Serum 0.93 mg/dL (0.55-1.02); EST Glomerular Filtration Rate 67 mL/min (>60); Est Glom Filt Rate - Afr Amer 81 mL/min (>60); Estimated Creatinine Clearance 68.81 ml/min; Globulin 4.1 g/dL (2.2-4.2); Glucose 246 mg/dL (74-106); Potassium 3.6 mmol/L (3.5-5.1); Protein, Total 6.2 g/dL (6.4-8.2); Sodium Level 141 mmol/L (136-145)
--- NOTE | 2023-01-29 09:13 | PN.HOSP_ITS ---
Reason for Visit Reason for Visit: Diagnoses Type 1 diabetes mellitus without complications (01/27/23) Cellulitis, unspecified (01/27/23) Hyperglycemia, unspecified (01/27/23) Subjective Subjective Still has some pain but it is improving and erythema improving., No changes in breathing, no chest pain Objective Data Objective Data Vital Signs: Vital Signs Temp Pulse Resp BP Pulse Ox O2 Del Method O2 Flow Rate 98.7 F 95 18 102/65 94 Room Air 2 01/29/23 08:11 01/29/23 08:11 01/29/23 08:11 01/29/23 08:11 01/29/23 08:50 01/29/23 08:50 01/29/23 05:52 Oxygen Flow Rate (L/min) 2 Oxygen Delivery Method Room Air Weight: 77.9 kg Body Mass Index (BMI) 26.9 Intake & Output: Intake and Output for Last 24 Hours 01/27/23 01/28/23 01/29/23 23:59 23:59 23:59 Intake Total 100 / 100 4664.25 / 4664.25 50 / 50 Balance 100 / 100 4664.25 / 4664.25 50 / 50 Lab / Micro Data Result Diagrams: 01/29/23 05:30 01/29/23 05:30 Labs: Laboratory Results - last 24 hr 01/28/23 11:32: POC Glucose 254 H 01/28/23 17:03: POC Glucose 247 H 01/28/23 22:05: POC Glucose 293 H 01/29/23 02:50: POC Glucose 392 H 01/29/23 05:30: WBC 7.6, RBC 3.26 L, Hgb 9.0 L, Hct 28.4 L, MCV 87.1, MCH 27.6, MCHC 31.7 L, RDW Std Deviation 42.4, RDW Coeff of Tere 13.3, Plt Count 199, MPV 8.9, Immature Gran % (Auto) 0.700, Neut % (Auto) 58.3, Lymph % (Auto) 26.8, [place] % (Auto) 12.7 H, Eos % (Auto) 1.1, Baso % (Auto) 0.4, Absolute Neuts (auto) 4.4, Absolute Lymphs (auto) 2.02, Nucleated RBC % 0, ESR 39 H 01/29/23 05:30: Sodium 141, Potassium 3.6, Chloride 103, Carbon Dioxide 34.0 H, Anion Gap 4 L, BUN 8, Creatinine 0.93, Estim Creat Clear Calc 68.81, Est GFR (MDRD) Af Amer 81, Est GFR (MDRD) Non-Af 67, BUN/Creatinine Ratio 8.6 L, Glucose 246 H, Calcium 8.4 L, Total Bilirubin 0.20, AST 13 L, ALT 7 L, Alkaline Phosphatase 96, C-React Prot Ext Range 96.60 H, Total Protein 6.2 L, Albumin 2.1 L, Globulin 4.1, Albumin/Globulin Ratio 0.5 L Micro: Microbiology 01/27/23 21:15 Urine, Clean Catch Urine Culture - Final Klebsiella pneumoniae sp pneum Radiography Diagnostic Testing: Radiology Impression Venous Doppler Study 01/28/23 00:37 Interpretation Summary Deep veins of the lower extremities are bilaterally patent and compressible segm entally. There is no evidence of deep vein thrombosis on either side. The great saphenous veins appear bilaterally patent and compressible segmentally. Incidental finding, left inguinal 2.79 cm heterogeneous structure Ordering Physician: Levon Galvin Referring Physician: [facility] Performed By: Ana Tarango RVT Lower Extremity CT 01/28/23 07:12 IMPRESSION: 1. Mild to moderate cellulitis with subcutaneous edema and skin thickening of the left leg down to the foot 2. No evidence of osteomyelitis 3. No evidence of necrotizing fasciitis 4. No abscess formation or subcutaneous air is present. 5. Normal bony structures of the left leg Electronically Signed: Ryan Nelson MD at 9:44 EST Reading Location ID and State: [facility] / [place] , Service support , Physical Exam Narrative General: Alert, oriented, no acute distress HEENT: Atraumatic, normocephalic Eyes: Anicteric, normal conjunctiva, extraocular movements grossly intact Neck: Supple Respiratory: Clear to auscultation bilaterally, normal respiratory effort Cardiovascular: Regular rate and rhythm GI: Soft, nontender, nondistended Extremities: Some swelling and erythema on left leg Musculoskeletal: Moving all extremities Neuro: No overt focal neurological deficits Skin: Rash has been marked and is receding, still some warmth and erythema but improved Psych: Tearful and anxious Assessment & Plan Assessment/Plan (1) Cellulitis: PLAN: Plan #Left leg cellulitis without sepsis -Reports that the erythema started with her toes and worked its way up her leg, this has been marked and she is on Vanco and Zosyn -ESR was elevated at 114 CRP at 124, will trend -Tib-fib x-ray with no air or fracture -Team to CT due to her reports of pain and that she felt that it was spreading and diffuse swelling without air or fluid collection noted -Duplex of legs obtained -Pain management -Continue fluids -Blood cultures pending -3/2: Improving, awaiting blood cultures. 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,000 100,000, will follow -Is already on broad-spectrum antibiotics -3/2: Urine culture with Klebsiella pneumonia resistant only to ampicillin, is on appropriate antibiotics and they remain broad while awaiting cultures #Seizure disorder -Continue Keppra #Hypothyroidism -Continue Synthroid #JOHANN-resolved with fluids #Type 2 diabetes mellitus -Sliding scale insulin and glucose checks, home basal regimen #Depression anxiety and PTSD -Continue home medications -Supportive care #DVT ppx: Subcu Lovenox Elise Nguyen MD Time spent in the patient's overall evaluation,decision-making process, review of diagnostic data, adjustment of management, discussion with other providers, nursing nursing and ancillary staff involved in patient's care documentation, 30 minutes Charges/Coding Visit Charges Inpatient E&M: 15903 Subs Hosp L2
[2023-01-29] MEDS: levETIRAcetam 1,000 MG Tablet 1000 MG PO ×2 (10:52→22:58)
[2023-01-29] MEDS: busPIRone 5 MG Tablet 10 MG PO ×2 (10:52→22:59)
[2023-01-29] MEDS: DULoxetine Hcl 60 MG Capsule PO (10:52)
[2023-01-29] MEDS: Enoxaparin 40 MG/0.4 ML Syringe SC (10:52)
[2023-01-29] MEDS: Pantoprazole Sodium 20 MG Tablet PO (10:52)
[2023-01-29] MEDS: Vancomycin IV 1,000 MG/200 ML BAG 200 MG IV ×2 (11:00→23:15)
[2023-01-29 11:15] LABS: Vancomycin, Trough Level 14.9 ug/mL (5.0-15.0)
[2023-01-29] MEDS: Ferrous Sulfate 325 MG Tablet PO (12:00)
--- NOTE | 2023-01-29 12:47 | PCM.RX.CS ---
Consult Pharmacy has been consulted to manage selected antiobiotic: Vancomycin Type of Consult: Follow-up Suspected Infection: Skin/Soft tissue Prior Doses of Antibiotics Received/Current Regimen: On 1000mg iv q12h. Labs: Sodium 141 mmol/L (136-145) 01/29/23 05:30 Potassium 3.6 mmol/L (3.5-5.1) 01/29/23 05:30 Chloride 103 mmol/L (98-107) 01/29/23 05:30 Carbon Dioxide 34.0 mmol/L (21.0-32.0) H 01/29/23 05:30 Anion Gap 4 (5-15) L 01/29/23 05:30 BUN 8 mg/dL (7-18) 01/29/23 05:30 Creatinine 0.93 mg/dL (0.55-1.02) 01/29/23 05:30 Est GFR (MDRD) Af Amer 81 mL/min (>60) 01/29/23 05:30 Est GFR (MDRD) Non-Af 67 mL/min (>60) 01/29/23 05:30 BUN/Creatinine Ratio 8.6 RATIO (10-20) L 01/29/23 05:30 Glucose 246 mg/dL (74-106) H 01/29/23 05:30 Vancomycin Trough 14.9 ug/mL (5.0-15.0) 01/29/23 10:30 Microbiology: Microbiology 01/27/23 21:15 Urine, Clean Catch Urine Culture - Final Klebsiella pneumoniae sp pneum Weight used for dosin.9 kg Estimated Creatinine Clearance: 76 ml/min Goal Trough: 15-20 mcg/mL Pharmacy Plan for Drug Dosing: Trough today was 14.9 mcg/ml with goal range of 15-20. Calculated CrCl is ~76ml/min and about same as yesterday using an adjusted body weight of 67.8kg. Will continue same dose for now and get another trough level before another 4th dose per policy. Pharmacy Service will continue to monitor and adjust dosing as required. Follow-Up Labs: Trough Vancomycin - 3.3.23 @2230 before 2300 dose
--- NOTE | 2023-01-29 14:06 | CASEMGMT ---
Social Work SW met with pt and . Pt states she just completed Living will and Healthcare POA on Thursday. Pt naming her spouse Serafin Jerry as HCPOA. SW requested documents be brought in for scanning into medical record. ANTOLIN Lay
--- NOTE | 2023-01-29 14:08 | CASEMGMT ---
Social Work SW in pt room, pt requesting SW contact her SW at the [facility] Lubna Tran ([phone]) Phone call placed to Lubna who states she has just recently started on pt's case but did meet with pt and has collaborated with pt [facility] Paula Callahan, JHONNY. Per Lubna, [facility] the [facility] but is non compliant with her treatments. Pt was recently at [facility] and physicians wanted to run tests and have followup appointments and pt left AMA. Lubna states pt has informed her that she does not want any treatment but wants her pain to be controlled and to be left alone. Pt did tell Lubna that she is getting pain meds off the street but did not disclose what she is using. According to Lubna, pt tested positive for fentanyl while at the [facility]. Lubna talked to pt regarding Palliative medicine and pt is agreeable, however at this time the [facility] will not approve palliative as there is not a life limiting diagnosis and pt has refused all testing for diagnosis up to this point. Pt has been approved for 10 hours of home health aids a week and Lubna is working on finding caregivers. LISA updated hospitalist on information obtained. ANTOLIN Lay
[2023-01-29 16:16] LABS: Bedside Glucose 191 mg/dL (74-106)
[2023-01-29 16:16] LABS: Bedside Glucose 276 mg/dL (74-106)
[2023-01-29] MEDS: cycloBENZAPRine HCl 10 MG Tablet PO (19:47)
[2023-01-29] MEDS: Acetaminophen 325 MG Tablet 650 MG PO (19:47)
[2023-01-29] MEDS: MELATONIN 3 MG TABLET PO (22:58)
[2023-01-29 23:05] LABS: Bedside Glucose 311 mg/dL (74-106)
[2023-01-29 23:40] LABS: Bedside Glucose 305 mg/dL (74-106)
[2023-01-30] MEDS: oxyCODONE 5 MG Tablet PO ×3 (00:38→10:57)
[2023-01-30 02:08] VITALS: BP 113/65; PULSE 76; RESP 16; TEMP 36.8; O2SAT 96
[2023-01-30] MEDS: Insulin Lispro 100 UNIT/ML INSULN.PEN SC ×3 (02:13→11:46)
[2023-01-30 02:36] LABS: Bedside Glucose 306 mg/dL (74-106)
[2023-01-30 05:58] LABS: Basophil# 0.04 X10^3/uL; Basophil% 0.6 % (0-1); Eosinophil# 0.13 X10^3/uL; Hematocrit 28.9 % (37-47); Hemoglobin 9.1 g/dL (12.0-15.0); Lymphocyte % 40.7 % (19-41); Mean Corp Hgb Conc 31.5 g/dL (32-36); Mean Corpuscular Hgb 27.2 pg (27.0-32.0); Mean Corpuscular Volume 86.5 fL (81-99); Mean Platelet Vol. 8.7 fl (6.2-12.0); Monocyte% 9.4 % (0-10); NRBC Flagged by Analyzer 0 % (0-5); Neutrophil # 2.97 X10^3/uL (2.7-7.7); Neutrophil % 46.5 % (47-70); Platelet Count 205 K/mm3 (150-450); RBC Distribution Width CV 13.4 % (11.6-14.6); RBC Distribution Width SD 42.2 fl (35.1-43.9); Red Blood Count 3.34 M/mm3 (4.2-5.4); White Blood Count 6.4 K/mm3 (4.4-11.0)
[2023-01-30 06:32] LABS: Anion Gap 5 (5-15); BUN 7 mg/dL (7-18); BUN/Creat Ratio 8.6 RATIO (10-20); Calcium,Total 8.2 mg/dL (8.5-10.1); Chloride 103 mmol/L (98-107); Creatinine, Serum 0.81 mg/dL (0.55-1.02); EST Glomerular Filtration Rate 79 mL/min (>60); Est Glom Filt Rate - Afr Amer 95 mL/min (>60); Estimated Creatinine Clearance 79.01 ml/min; Glucose 157 mg/dL (74-106); Potassium 3.5 mmol/L (3.5-5.1); Sodium Level 141 mmol/L (136-145)
[2023-01-30 06:41] VITALS: BP 122/73; PULSE 69
[2023-01-30] MEDS: Acetaminophen 325 MG Tablet 650 MG PO (06:43)
[2023-01-30] MEDS: Gabapentin 600 MG Tablet PO (06:44)
[2023-01-30] MEDS: Levothyroxine 75 MCG Tablet 225 MCG PO (06:44)
[2023-01-30 07:10] LABS: Bedside Glucose 170 mg/dL (74-106)
[2023-01-30 07:58] VITALS: BP 114/66; PULSE 66; RESP 18; TEMP 36.3; O2SAT 96
[2023-01-30 08:56] VITALS: O2SAT 95
[2023-01-30] MEDS: Enoxaparin 40 MG/0.4 ML Syringe SC (09:36)
[2023-01-30] MEDS: levETIRAcetam 1,000 MG Tablet 1000 MG PO (09:36)
[2023-01-30] MEDS: Pantoprazole Sodium 20 MG Tablet PO (09:36)
[2023-01-30] MEDS: DULoxetine Hcl 60 MG Capsule PO (09:36)
[2023-01-30] MEDS: busPIRone 5 MG Tablet 10 MG PO (09:36)
--- NOTE | 2023-01-30 10:03 | CASEMGMT ---
Addendum entered by Bren Givens 01/30/23 13:14: DC instructions sent to [facility] via [facility] at this time. Original Note: Reviewed therapy notes. RN BECKA in to pt room, discussed HHC with pt. Pt states she is active with [facility] for SN 1x/wk. This was not noted during initial assessment. Pt states she has done therapy before and it didn't help but she is willing to try again. She would like the same agency and denies need for a new list. [facility] spoke with Estelle who confirms the SN. She states that they can add PT and OT. Referral sent via [facility].
[2023-01-30 10:25] VITALS: O2SAT 94
[2023-01-30 10:27] LABS: M R Staph aureus DNA By PCR Negative (Negative)
[2023-01-30 10:28] LABS: Probe Check PASS; Specimen Processing Control PASS
[2023-01-30] MEDS: Vancomycin IV 1,000 MG/200 ML BAG 200 MG IV (10:58)
[2023-01-30] MEDS: Ferrous Sulfate 325 MG Tablet PO (11:47)
[2023-01-30 12:25] LABS: Bedside Glucose 321 mg/dL (74-106)
--- NOTE | 2023-01-30 12:41 | CASEMGMT ---
Social Work SW spoke with physician who confirms there is no life limiting diagnosis that would warrent palliative medicine consult at this time. ANTONELLA Calvo updated. ANTOLIN Sims
--- NOTE | 2023-01-30 13:07 | DS.PCM_ITS ---
Providers Date of Admission: 01/27/23 Date of Discharge: 01/30/23 Primary Care Physician: [facility] Reason For Visit: CELLULITIS Diagnosis Discharge Diagnosis (1) Cellulitis: Status: Acute Code(s): L03.90 - Cellulitis, unspecified Plan #Left leg cellulitis without sepsis #Urinary tract infection #Seizure disorder #Hypothyroidism #JOHANN-resolved with fluids #Type 1 diabetes mellitus #Depression anxiety and PTSD Medications at Discharge Home Medications levothyroxine 200 mcg tablet 225 mcg PO DAILY thyroid 05/10/20 levetiracetam 500 mg tablet 1,000 mg PO BID seizures 06/15/20 insulin lispro 100 unit/mL subcutaneous pen sliding scale dose subcut TIDCM diabetes 07/14/20 cholecalciferol (vitamin D3) 1,250 mcg (50,000 unit) capsule 1,250 mcg PO QWEEK Check with primary doctor 07/30/20 gabapentin 600 mg tablet 600 mg PO TID pain 07/30/20 ferrous sulfate 325 mg (65 mg iron) tablet,delayed release 325 mg PO DAILY low iron 10/22/20 buspirone 10 mg tablet 10 mg PO BID Check with primary doctor 01/16/22 cyclobenzaprine 10 mg tablet 10 mg PO TID Check with primary doctor 01/16/22 duloxetine 60 mg capsule,delayed release 60 mg PO DAILY Check with primary doctor 01/16/22 furosemide 20 mg tablet (Lasix) 20 mg PO DAILY PRN fluid 01/16/22 hydroxyzine pamoate 50 mg capsule 50 mg PO 4X/DAY PRN PRN Anxiety 01/16/22 melatonin 3 mg tablet 3 mg PO QHS insomnia 01/16/22 omeprazole 20 mg capsule,delayed release 20 mg PO DAILY gerd 01/16/22 amoxicillin 875 mg-potassium clavulanate 125 mg tablet 1 tab PO Q12H #11 tabs 01/30/23 insulin glargine 100 unit/mL (3 mL) subcutaneous pen 20 units (0.2 mL) subcut QHS diabetes #30 mL 01/30/23 oxycodone 5 mg tablet 5 mg PO Q8H PRN PRN Pain Score 7-10 3 days #15 tabs 01/30/23 Hospital Course Summary of Care Provided Minutes Spent on Discharge: 35 Hospital Course: 52-year-old with a of type 1 diabetes mellitus, Pastora's granulomatosis, hypothyroidism, seizure disorder who presented to [facility] on 01/27/2023 for swelling of her left leg. She had a 2-day history of progressive swelling around her left leg with erythema and pain as well as a fever of 101 at home. ESR 114 CRP 124. qSOFA 0, no organ dysfunction and was not diagnosed with sepsis. Tubular/fibular x-ray with diffuse swelling without bony involvement. She was admitted for cellulitis and started on vancomycin and Zosyn and cultures obtained and given medicine for pain control. The following day she was reporting fairly significant pain and CT of her leg was obtained to verify no air or other fluid collection that would require draining or surgical intervention. Duplex of the leg obtained with no DVT. Patient did have poor nail care on the left foot and reported she was supposed to establish with a spray machine operator and her appointment is pending. She improved on vancomycin and Zosyn and blood cultures were negative. Improved. She did report in hindsight that she had been having some dysuria and her urine culture that was obtained in the ED was positive for Klebsiella. MRSA swab obtained which was negative. Patient stable and feeling much better, appropriate to continue therapy with oral antibiotics as an outpatient and follow-up with podiatry for nail and foot care as an outpatient which she reports is already scheduled. On the day of discharge she reports she feels she is ready to go home, no chest pain or changes with her breathing. Erythema and pain in legs significantly improving. Discharge instructions as follows: -You were diagnosed with both cellulitis of your left leg as well as a urinary tract infection.? You will need to take Augmentin 875 mg twice daily for 10 more days with first dose tonight. -You will be discharged on a short course of pain medication to help with your residual leg pain.? Do not mix this with any alcohol or other controlled substances whether prescribed or not and do not take more than prescribed -Your glucose was quite variable during your admission and your long-acting insulin was held, would advise resuming your insulin glargine but it 20 units while monitoring your blood sugar as this may need to be increased however resuming 45 units immediately upon discharge may result in low blood sugar.? Continue your sliding scale insulin -Strongly recommend you keep your upcoming appointment with spray machine operator (foot doctor) that you indicated you had scheduled -Recommend routine foot care and hygiene and checking for wounds -It will be important for you to follow closely with your outpatient provider to assure continued improvement of your cellulitis. -If you have a fever greater than or equal to 100.4 degrees please call your primary care physician or proceed to the nearest emergency department.? If your leg does not get better in 3 to 5 days please call your primary care physician for further instructions.? If your leg worsens please return to the emergency department immediately -Please call your primary care provider's office upon discharge to schedule a hospital follow up within 1 week. -For any concerning signs or symptoms please call 911 or proceed to the nearest emergency department Physical Exam Narrative General: Alert, oriented, no acute distress HEENT: Atraumatic, normocephalic Eyes: Anicteric, normal conjunctiva, extraocular movements grossly intact Neck: Supple Respiratory: Clear to auscultation bilaterally, normal respiratory effort Cardiovascular: Regular rate and rhythm GI: Soft, nontender, nondistended Extremities: Some swelling and erythema on left leg which is significantly improved, poor toenail care Musculoskeletal: Moving all extremities Neuro: No overt focal neurological deficits Skin: Rash has been marked and is receding, still some warmth and erythema but improved Psych: Cooperative, not tearful Weight / BMI Weight Weight: 77.9 kg Body Mass Index (BMI) 26.9 ABG / Lab / Microbiology Data Result Diagrams: 01/30/23 05:35 01/30/23 05:35 Laboratory: Laboratory Results - last 24 hr 01/29/23 06:45: POC Glucose 191 H 01/29/23 11:37: POC Glucose 276 H 01/29/23 16:42: POC Glucose 311 H 01/29/23 22:57: POC Glucose 305 H 01/30/23 02:12: POC Glucose 306 H 01/30/23 05:35: WBC 6.4, RBC 3.34 L, Hgb 9.1 L, Hct 28.9 L, MCV 86.5, MCH 27.2, MCHC 31.5 L, RDW Std Deviation 42.2, RDW Coeff of Tere 13.4, Plt Count 205, MPV 8.7, Immature Gran % (Auto) 0.800, Neut % (Auto) 46.5 L, Lymph % (Auto) 40.7, Nolan % (Auto) 9.4, Eos % (Auto) 2.0, Baso % (Auto) 0.6, Absolute Neuts (auto) 3.0, Absolute Lymphs (auto) 2.60, Nucleated RBC % 0 01/30/23 05:35: Sodium 141, Potassium 3.5, Chloride 103, Carbon Dioxide 33.0 H, Anion Gap 5, BUN 7, Creatinine 0.81, Estim Creat Clear Calc 79.01, Est GFR (MDRD) Af Amer 95, Est GFR (MDRD) Non-Af 79, BUN/Creatinine Ratio 8.6 L, Glucose 157 H, Calcium 8.2 L 01/30/23 06:38: POC Glucose 170 H 01/30/23 08:20: MRSA (PCR) Negative 01/30/23 11:44: POC Glucose 321 H Microbiology: Microbiology 01/27/23 22:10 Blood Culture (Wb) - Anticubital Right Blood Culture - Preliminary No growth in 48 hours. 01/27/23 21:47 Blood Culture (Wb) - Anticubital Left Blood Culture - Preliminary No growth in 48 hours. 01/27/23 21:15 Urine, Clean Catch Urine Culture - Final Klebsiella pneumoniae sp pneum D/C Instructions Discharge Diet: - (Recommend a carbohydrate controlled diet) Meaningful Use Info Meaningful Use Diagnoses (Choose all that apply): None applicable Discharge Plan Admission Admit Date/Time: 01/27/23 23:09 Primary Reason for Your Visit: Leg swelling Attending Provider: Elise Nguyen Primary Care Provider: [place], [place] Consulting Providers: Levon Galvin Instructions Patient Instructions: Cellulitis, Diabetes: Keeping Feet Healthy, Diabetes: Inspecting Your Feet, Cellulitis Dc, Diabetes Inspect Feet, ED Diabetic Foot Care Additional Instructions / Restrictions: DISCHARGE INSTRUCTIONS PLEASE READ *Please take this with you to your next doctors appointment* -You were diagnosed with both cellulitis of your left leg as well as a urinary tract infection. You will need to take Augmentin 875 mg twice daily for 10 more days with first dose tonight. -You will be discharged on a short course of pain medication to help with your residual leg pain. Do not mix this with any alcohol or other controlled substances whether prescribed or not and do not take more than prescribed -Your glucose was quite variable during your admission and your long-acting insulin was held, would advise resuming your insulin glargine but it 20 units while monitoring your blood sugar as this may need to be increased however resuming 45 units immediately upon discharge may result in low blood sugar. Continue your sliding scale insulin -Strongly recommend you keep your upcoming appointment with spray machine operator (foot doctor) that you indicated you had scheduled -Recommend routine foot care and hygiene and checking for wounds -It will be important for you to follow closely with your outpatient provider to assure continued improvement of your cellulitis. -If you have a fever greater than or equal to 100.4 degrees please call your primary care physician or proceed to the nearest emergency department. If your leg does not get better in 3 to 5 days please call your primary care physician for further instructions. If your leg worsens please return to the emergency department immediately -Please call your primary care provider's office upon discharge to schedule a hospital follow up within 1 week. -For any concerning signs or symptoms please call 911 or proceed to the nearest emergency department Discharge Orders/Prescriptions Prescriptions: New oxycodone 5 mg Tablet 5 mg PO Q8H PRN PRN (Reason: Pain Score 7-10) 3 Days Qty: 15 0RF amoxicillin-pot clavulanate 875-125 mg tablet 1 tab PO Q12H Qty: 11 0RF Continued cholecalciferol (vitamin D3) 1,250 mcg (50,000 unit) capsule 1,250 mcg PO QWEEK gabapentin 600 mg tablet 600 mg PO TID ferrous sulfate 325 mg (65 mg iron) tablet,delayed release (DR/EC) 325 mg PO DAILY levothyroxine 200 MCG tablet 225 mcg PO DAILY levetiracetam 500 MG tablet 1,000 mg PO BID insulin lispro 100 UNIT/ML insulin pen SC TIDCM Protocol: 1. Sliding Scale Insulin Low Dosing Condition: 150-224 mg/dl = 1 unit Condition: 225-299 mg/dl = 2 units Condition: 300-374 mg/dl = 3 units Condition: 375-499 mg/dl = 4 units Condition: Greater than 449 call physician Protocol Text: - Use for Total Daily Dose of Insulin 15-27 units - Thin, elderly, renal patients LOW DOSING ALGORITHM cyclobenzaprine 10 mg Tablet 10 mg PO TID hydroxyzine pamoate 50 mg Capsule 50 mg PO 4X/DAY PRN PRN (Reason: Anxiety) Hold Instructions: Resume on 02/24/22. due to interaction with antibiotic melatonin 3 mg Tablet 3 mg PO QHS buspirone 10 mg Tablet 10 mg PO BID omeprazole 20 mg Capsule,Delayed Release(Dr/Ec) 20 mg PO DAILY furosemide [Lasix] 20 mg Tablet 20 mg PO DAILY PRN (Reason: fluid) duloxetine 60 mg Capsule,Delayed Release(Dr/Ec) 60 mg PO DAILY Changed insulin glargine 100 UNITS/ML insulin pen 20 units SC QHS Qty: 30 0RF Discontinued pseudoephedrine-guaifenesin [Mucinex D] 60-600 mg tablet extended release 12 hr 2 tab PO BID Qty: 20 0RF Referrals / Follow Up: [facility] [Primary Care Provider] - Within 1 Week Disposition Disposition (needs filled in before D/C Order can be placed): Home Health Service Charges/Coding Visit Charges Inpatient E&M: 81582 Disch Hosp >30min
[2023-01-30 14:40] VITALS: BP 115/76; PULSE 90; RESP 18; TEMP 36.2; O2SAT 99
== END 2023-01-30 15:00 | disposition home health service (06) | DRG 603 ==
LOC: ED 22:27 → MS3 23:32
PROVIDERS: Admitting Provider Hospitalist; Emergency Provider Emergency Medicine; Visit Provider Internal Medicine
DX: L03.116 Cellulitis of left lower limb (principal); N17.9 Acute kidney failure, unspecified; E87.1 Hypo-osmolality and hyponatremia; N39.0 Urinary tract infection, site not specified; E10.65 Type 1 diabetes mellitus with hyperglycemia; E03.9 Hypothyroidism, unspecified; B96.1 Klebsiella pneumoniae [K. pneumoniae] as the cause of diseases classified elsewhere; Z79.4 Long term (current) use of insulin; G40.909 Epilepsy, unspecified, not intractable, without status epilepticus; F41.9 Anxiety disorder, unspecified; F17.210 Nicotine dependence, cigarettes, uncomplicated; F32.A Depression, unspecified; F43.10 Post-traumatic stress disorder, unspecified; Z79.899 Other long term (current) drug therapy; Z86.16 Personal history of COVID-19
CPT/HCPCS: 36415; 71045; 73590; 73701; 80048; 80053; 80202; 81001; 82962; 83605; 85025; 85610; 85652; 85730; 86140; 87040; 87077; 87086; 87088; 87186; 87641; 93005; 93970; 97162; 97166; 97535; 97802; 99285; 99406; J7030; J7050; Q9967; A4216; J2405

== ENCOUNTER 2023-11-09 15:31 | Emergency (ER) | payer OTHER, SELFPAY ==
[2023-11-09 15:31] VITALS: BP 136/84; PULSE 139; RESP 18; TEMP 36.4; O2SAT 100
--- NOTE | 2023-11-09 17:06 | CT_ITS ---
STUDY: CT ABDOMEN AND PELVIS WITH CONTRAST REASON FOR EXAM: Female, 53 years old. Pain, known colonic mass RADIATION DOSAGE (If Supplied By Facility): CTDIvol = ( 11.93 ) mGy, DLP = ( 595.78 ) mGycm TECHNIQUE: Transaxial images were obtained from the dome of the diaphragm to the symphysis pubis without oral contrast. IV 100mL Isovue-300 was administered. Sagittal and coronal images were reconstructed. Individualized dose optimization techniques were used for this CT. COMPARISON: February 12, 2022 FINDINGS: There is right lower lung scarring and atelectasis. The visualized portions of the heart are within normal limits. There is hepatomegaly with diffuse hepatic enlargement. Normal gallbladder and extrahepatic biliary system. There is mild splenomegaly. Normal pancreas. Normal bilateral adrenal glands. Normal right kidney. Normal left kidney. Normal visualized stomach. Normal small intestine. There is abundant stool in the colon. There are surgical clips in the region of the appendix consistent with a prior appendectomy. There is diffuse atherosclerotic calcification of the abdominal aorta, without a demonstrated aneurysm. Normal inferior vena cava. Normal retroperitoneum. Normal urinary bladder. Normal visualized uterus. There is no free fluid in the abdomen or pelvis. Normal abdominal wall. Normal osseous structures. CT/Abdomen/Pelvis W IV Cont ONLY IMPRESSION: Hepatosplenomegaly. No biliary dilatation. Abundant stool. No obstruction. Electronically Signed: Boubacar Logan MD at 19:03 EST ,
--- NOTE | 2023-11-09 17:08 | EKG12_ITS ---
Test Reason : Blood Pressure : / mmHG Vent. Rate : 115 BPM Atrial Rate : 115 BPM P-R Int : 130 ms QRS Dur : 072 ms QT Int : 322 ms P-R-T Axes : 068 008 060 degrees QTc Int : 445 ms Sinus tachycardia Otherwise normal ECG Confirmed by DANIELLA SHEIKH, LIZY ([id number]), assistant editor JACOB MIXON ([id number]) on 11/16/2023 6:56:15 AM Referred By: Robert Lyons Confirmed By:TOYA BREWER MD
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
[2023-11-09] MEDS: Ondansetron 4 MG/2 ML Vial IV (17:24)
[2023-11-09] MEDS: 0.9% Normal Saline (1000mL) 1,000 ML 1000 ML IV (17:24)
[2023-11-09] MEDS: fentaNYL 100 MCG/2 ML Ampul 50 MCG IV (17:24)
[2023-11-09 17:46] LABS: Mucous, Urine 0 SEEN /hpf (<or=2+); Red Blood Cells-Urine 0 SEEN /hpf (0-5)
[2023-11-09 17:49] LABS: Color, Urine Yellow (Yellow); Glucose, Dipstick 1000 mg/dl (Normal); Ketone-Dipstick Negative (Negative); Leukocyte Esterase-Dipstick 500 /ul (Negative); Nitrite-Dipstick Negative (Negative); Occult Blood-Urine 10 /ul (Negative); Protein-Dipstick 15 mg/dl (Negative); Urine Bilirubin Dipstick Negative (Negative); Urine Clarity Clear (Clear); Urine Urobilinogen Normal (Normal)
[2023-11-09 17:51] LABS: Absolute Lymphocyte Count 4.17 X10^3/uL (0.83-4.51); Absolute Neutrophil Count 9.1 X10^3/uL (2.0-7.7); Basophil# 0.13 X10^3/uL; Basophil% 0.9 % (0-1); Eosinophils% 1.4 % (0-5); Hematocrit 41.8 % (37-47); Lymphocyte # 4.17 X10^3/ul (0.83-4.51); Mean Corp Hgb Conc 33.5 g/dL (32-36); Mean Corpuscular Hgb 29.2 pg (27.0-32.0); Mean Corpuscular Volume 87.3 fL (81-99); Mean Platelet Vol. 9.2 fl (6.2-12.0); Monocyte% 4.9 % (0-10); NRBC Flagged by Analyzer 0 % (0-5); Neutrophil # 9.09 X10^3/uL (2.7-7.7); Neutrophil % 63.2 % (47-70); Platelet Count 269 K/mm3 (150-450); RBC Distribution Width CV 12.9 % (11.6-14.6); RBC Distribution Width SD 41.2 fl (35.1-43.9); Red Blood Count 4.79 M/mm3 (4.2-5.4); White Blood Count 14.4 K/mm3 (4.4-11.0)
[2023-11-09 18:10] LABS: ALB/GLOB Ratio 0.7 RATIO (0.9-2.4); AST(SGOT) 57 U/L (15-37); Alanine Aminotransfer ALT/SGPT 62 U/L (13-56); Albumin, Serum 3.3 g/dL (3.2-5.0); Alkaline Phosphatase 203 U/L (45-117); Anion Gap 6 (5-15); BUN 23 mg/dL (7-18); Calcium,Total 9.1 mg/dL (8.5-10.1); Chloride 99 mmol/L (98-107); EST Glomerular Filtration Rate 62 mL/min (>60); Est Glom Filt Rate - Afr Amer 75 mL/min (>60); Globulin 4.9 g/dL (2.2-4.2); Glucose 321 mg/dL (74-106); Lipase 48 U/L (13-75); Potassium 4.2 mmol/L (3.5-5.1); Protein, Total 8.2 g/dL (6.4-8.2); Sodium Level 134 mmol/L (136-145)
[2023-11-09 18:14] LABS: White Blood Cells 10-25 SEEN /hpf (0-5); Yeast-Urine RARE /hpf (None Seen)
[2023-11-09 18:15] LABS: Bacteria 1+ /hpf (None Seen); Squamous Epithelial Cells - UA 5-10 SEEN /hpf (5-10)
[2023-11-09 18:19] LABS: Lactic Acid 2.3 mmol/L (0.4-1.9)
[2023-11-09] MEDS: 0.9% Normal Saline (1000mL) 1,000 ML 999 ML IV (19:11)
[2023-11-09] MEDS: Insulin Lispro 100 UNIT/ML INSULN.PEN 10 UNIT SC (19:14)
[2023-11-09 20:14] VITALS: BP 141/79; PULSE 104; RESP 15; O2SAT 100
[2023-11-09] MEDS: fentaNYL 100 MCG/2 ML Ampul 25 MCG IV (20:23)
[2023-11-09 20:43] LABS: Bedside Glucose 162 mg/dL (74-106)
[2023-11-09 21:05] LABS: Lactic Acid 1.4 mmol/L (0.4-1.9)
[2023-11-09 21:41] LABS: Reflex Lactate? Y
== END 2023-11-09 22:08 | disposition home or self-care (01) ==
PROVIDERS: Emergency Provider Emergency Medicine; Referring Provider Emergency Medicine; Visit Provider Emergency Medicine
DX: Z76.0 Encounter for issue of repeat prescription (principal); E10.9 Type 1 diabetes mellitus without complications; K59.00 Constipation, unspecified; F17.210 Nicotine dependence, cigarettes, uncomplicated
CPT/HCPCS: 74177; 80053; 81001; 82009; 82962; 83605; 83690; 85025; 87086; 93005; 96361; 96374; 96375; 96376; 99285; J7030; Q9967; J2405

== ENCOUNTER 2023-11-16 16:55 | Emergency (ER) | payer OTHER, SELFPAY ==
[2023-11-16 16:56] VITALS: BP 133/90; PULSE 126; RESP 14; O2SAT 100
[2023-11-16 16:57] VITALS: BP 121/96; PULSE 125; RESP 22; TEMP 36.2; O2SAT 99; BMI 23.6
[2023-11-16 17:01] VITALS: BP 135/96; PULSE 114; RESP 16; TEMP 36.7; O2SAT 99
--- NOTE | 2023-11-16 17:09 | EKG12_ITS ---
Test Reason : GENERAL Blood Pressure : / mmHG Vent. Rate : 115 BPM Atrial Rate : 115 BPM P-R Int : 144 ms QRS Dur : 062 ms QT Int : 320 ms P-R-T Axes : 053 036 073 degrees QTc Int : 442 ms Sinus tachycardia Otherwise normal ECG Confirmed by SAM SHEIKH, LORI ([id number]), mapping editor YVONNE CLARK ([id number]) on 11/17/2023 9:46:00 AM Referred By: Confirmed By:LORI VARGAS MD
--- NOTE | 2023-11-16 17:13 | EDS_ITS ---
HPI History of Present Illness Chief Complaint: Nausea/Vomiting Detail of Chief Complaint: History of, vomiting, orthostatic lightheadedness and elevated blood sugar Informant: patient Onset/Context/Timing Onset: Days Context: Sudden Onset Timing: Continuous Quality: Nausea and vomiting, weight loss, high blood sugar Location: GI and endocrine Current Severity: Moderate Maximum Severity: Severe Worsened by: Uncertain Relieved by: Nothing Associated Symptoms Associated Symptoms: Orthostatic lightheadedness. Narrative Narrative: Patient is a 53-year-old woman with history of type 1 diabetes who was recently admitted for hyperglycemia. She reports nausea vomiting for the past 2 to 3 days. She denies blood or coffee grounds in her emesis. She does endorse increased urination and nocturia. She reports dark-colored urine. She does endorse fever and chills. She denies headache. She denies ringing or ears decreased hearing. Denies rhinorrhea, congestion or postnasal drainage. Denies sore throat. She does endorse slight cough. Cough is nonproductive. Denies chest discomfort. She has history of pleural effusions right and left. She states this is due to her liver disease. The cause of her liver disease is unknown. She does not endorse dysuria. She has not noted blood in her urine. She has not noted any skin lesions. She denies headache, loss of vision, double vision. She does report slight blurred vision. She does have history of autoimmune disorder Pastora's granulomatosis. Prior similar symptoms: Yes Recent Illness/Hospitalization: Yes [facility] Medical History Cervical radicular pain Chest pain Dehydration Diabetes Elevated lactic acid level Leida's disease Leida's thyroiditis History of type 1 diabetes mellitus Hyperglycemia Hypothyroidism Hypoxia Lung abscess Pneumonia due to COVID-19 virus Seizures Septic shock Steroid-induced hyperglycemia Wegeners granulomatosis Home Medications levothyroxine 200 mcg tablet 225 mcg PO DAILY thyroid 05/10/20 [History Last Taken 01/27/23] levetiracetam 500 mg tablet 1,000 mg PO BID seizures 06/15/20 [History Last Taken 01/27/23] insulin lispro 100 unit/mL subcutaneous pen sliding scale dose subcut TIDCM diabetes 07/14/20 [History Last Taken 01/27/23] cholecalciferol (vitamin D3) 1,250 mcg (50,000 unit) capsule 1,250 mcg PO QWEEK Check with primary doctor 07/30/20 [History Last Taken 01/27/23] gabapentin 600 mg tablet 600 mg PO TID pain 07/30/20 [History Last Taken 01/26/23] ferrous sulfate 325 mg (65 mg iron) tablet,delayed release 325 mg PO DAILY low iron 10/22/20 [History Last Taken 01/27/23] buspirone 10 mg tablet 10 mg PO BID Check with primary doctor 01/16/22 [History Last Taken 01/27/23] cyclobenzaprine 10 mg tablet 10 mg PO TID Check with primary doctor 01/16/22 [History Last Taken 01/26/23] duloxetine 60 mg capsule,delayed release 60 mg PO DAILY Check with primary doctor 01/16/22 [History Last Taken 01/27/23] furosemide 20 mg tablet (Lasix) 20 mg PO DAILY PRN fluid 01/16/22 [History Last Taken 01/27/23] hydroxyzine pamoate 50 mg capsule 50 mg PO 4X/DAY PRN PRN Anxiety 01/16/22 [History Last Taken 01/21/23] melatonin 3 mg tablet 3 mg PO QHS insomnia 01/16/22 [History Last Taken 01/26/23] omeprazole 20 mg capsule,delayed release 20 mg PO DAILY gerd 01/16/22 [History Last Taken 01/27/23] buspirone 10 mg tablet 10 mg PO BID #30 tabs 11/09/23 [Rx Last Taken Unknown] dicyclomine 20 mg tablet 20 mg PO BID PRN abdominal pain #20 tabs 11/09/23 [Rx Last Taken Unknown] duloxetine 60 mg capsule,delayed release 60 mg PO DAILY #14 caps 11/09/23 [Rx Last Taken Unknown] gabapentin 600 mg tablet 600 mg PO BID #30 tabs 11/09/23 [Rx Last Taken Unknown] hydroxyzine pamoate 50 mg capsule 50 mg PO BID PRN anxiety #30 caps 11/09/23 [Rx Last Taken Unknown] insulin lispro 100 unit/mL subcutaneous pen 1 sliding scale dose subcut TID #15 mL 11/09/23 [Rx Last Taken Unknown] levetiracetam 500 mg tablet 1,000 mg (2 x 500 mg) PO BID #60 tabs 11/09/23 [Rx Last Taken Unknown] levothyroxine 200 mcg capsule 200 mcg PO DAILY #14 caps 11/09/23 [Rx Last Taken Unknown] insulin glargine 100 unit/mL (3 mL) subcutaneous pen 51 units subcut QHS diabetes 11/16/23 [History Last Taken Unknown] ondansetron 4 mg disintegrating tablet 4 mg PO Q8H PRN PRN Nausea #10 tabs 11/16/23 [Rx Last Taken Unknown] Allergy/AdvReac Type Severity Reaction Status Date / Time NSAIDS (Non-Steroidal Allergy Swelling Verified 11/16/23 17:02 Anti-Inflamma ketorolac [From Toradol] AdvReac headache Verified 11/16/23 17:02 prednisone AdvReac PT UNSURE Verified 11/16/23 17:02 OF REACTION tramadol AdvReac headache Verified 11/16/23 17:02 Family History Grandfather COPD (chronic obstructive pulmonary disease) Surgical History H/O: hysterectomy Hx of appendectomy Social History household members: none Smoking Status: Current every day smoker tobacco type: cigarettes Tobacco: How many years used: 7 substance use type: does not use ROS ROS ED Constitutional Constitutional ED: Reports weight loss and other Details: Reports a 100 pound weight loss over the past year that was unintentional. ; Denies chills, fever(s), subjective or sweats Eyes Eyes: Reports blurry vision bilateral; Denies change in vision or diplopia ENT ENT ED: Denies ear pain, rhinorrhea or sore throat Cardiovascular Cardiovascular: Reports orthopnea, palpitations and racing heartbeat; Denies chest pain or paroxysmal nocturnal dyspnea Respiratory/Chest Respiratory/Chest: Reports cough, dyspnea, dyspnea on exertion, orthopnea and other Details: Reports 3 pillow orthopnea. She denies history of heart failure or leg swelling. ; Denies paroxysmal nocturnal dyspnea or sputum Gastrointestinal Gastrointestinal: Reports abdominal pain and nausea; Denies constipation, diarrhea or melena Genitourinary Genitourinary ED: Reports dysuria and urinary frequency; Denies hematuria Musculoskeletal Musculoskeletal: Denies arthralgias, back pain, myalgias or neck pain Integumentary Denies rash Neurologic Neurologic: Reports weakness; Denies headache(s) or paresthesias Endocrine Endocrinology: Reports cold intolerance, heat intolerance, polydipsia and polyuria; Denies polyphagia Hematologic/Lymphatic Hematologic/Lymphatic: Reports systems reviewed and no addt'l complaints, except as documented EXAM Physical Exam Const Vital Signs: 11/16/23 16:57 11/16/23 16:56 11/16/23 17:03 Temperature 97.2 F L Temperature Source Temporal Pulse Rate 125 H 126 H Respiratory Rate 22 H 14 Respiratory Effort Normal Respiratory Pattern Normal Blood Pressure 121/96 H 133/90 H Blood Pressure Mean 104 104 Pulse Ox 99 100 Oxygen Delivery Method Room Air Room Air 11/16/23 17:01 11/16/23 18:01 Temperature 98.0 F 97.6 F L Temperature Source Oral Oral Pulse Rate 114 H 112 H Respiratory Rate 16 14 Respiratory Effort Respiratory Pattern Blood Pressure 135/96 H 147/88 H Blood Pressure Mean 109 107 Pulse Ox 99 99 Oxygen Delivery Method Room Air Room Air Positive well nourished and well developed Constitutional Narrative: Is thin. She appears ill. She is tachypneic and tachycardic. Monitor reveals a sinus tachycardia of 129. General Appearance ED: well developed; Negative for cyanotic, diaphoretic or pallor HEENT Reports dry mucous membranes HEENT Narrative: Head is atraumatic and normocephalic. Ears are normal. TMs are normal. Nares patent. There is no tenderness over the frontal, ethmoid or maxillary sinuses. Neck is supple. Trachea is midline. There is no cervical lymphadenopathy. Mouth ED: Yes dry mucous membranes Mouth: dry mucous membranes Eyes PERRL and EOMs intact bilaterally Neck no lymphadenopathy, supple and no JVD Chest Wall inspection of chest normal and palpation of chest normal Resp normal respiratory effort and clear to auscultation bilaterally Cardio regular rhythm, S1 normal heart sound, S2 normal heart sound and no murmurs Rate: tachycardic GI normal to inspection, nondistended, normoactive bowel sounds, non-tender, non- distended and no masses; Negative for hepatosplenomegaly Palpation: soft Back/Spine no CVA tenderness Thoracic Spine / Upper Back: Negative for thoracic spinal tenderness Lumbar Spine / Lower Back: Negative for lumbar spinal tenderness Extremity normal to inspection General Extremety ED: Negative for edema or tenderness General Extremity: Negative for edema Neuro oriented x3, CN's II-XII intact bilaterally and no sensory deficits noted Sensorium / Orientation: alert Motor Exam: strength 5/5 throughout Skin Skin Narrative: Has dry flaky skin. General Skin Exam: Negative for elasticity normal, jaundice or pallor MDM MDM MDM Narrative Medical decision making narrative: Patient has DKA. VBG was obtained to assess acid-base status. Patient is not hypoxic. Clinically she is dehydrated. 1 L of normal saline was ordered. DKA order set was initiated. Will obtain chest x-ray to evaluate for pneumonia since she is complaining of cough and dyspnea. Suspect her abdominal pain is due to ketosis. EKG was obtained to evaluate for peaked T waves which would marin se concern for hyperkalemia. Prior hospitalization records were reviewed. Lab Data Attestation: I reviewed the patient's lab results. Lab results narrative: BGT was 540. White count is elevated 14.6 thousand without shift. Is normal. Basic metabolic panel is micro glucose of 597 with a normal CO2 and anion gap. Creatinine is elevated from baseline, 1.27 with an estimated GFR of 47. UA is remarkable for glucose, occult blood, leukoesterase. Macro is negative for nitrites and ketones microscopic reveals 5-10 epithelial cells. There is evidence of yeast. Will treat with Diflucan. Elevated blood sugar was treated with subcu insulin. DM is 126 and represents pseudohyponatremia. Repeat blood sugars have come down slowly. Plan is to discharge to home. Labs: Laboratory Results - last 24 hr 11/16/23 11/16/23 11/16/23 17:07 17:09 18:20 WBC 14.6 H RBC 4.94 Hgb 14.3 Hct 42.3 MCV 85.6 MCH 28.9 MCHC 33.8 RDW Std Deviation 39.5 RDW Coeff of Tere 12.8 Plt Count 288 MPV 9.5 Immature Gran % (Auto) 0.300 Neut % (Auto) 64.3 Lymph % (Auto) 27.3 [place] % (Auto) 6.0 Eos % (Auto) 1.2 Baso % (Auto) 0.9 Absolute Neuts (auto) 9.4 H Absolute Lymphs (auto) 3.98 Nucleated RBC % 0 Sodium 126 L Potassium 4.6 Chloride 88 L Carbon Dioxide 30.0 Anion Gap 8 BUN 34 H Creatinine 1.27 H Estim Creat Clear Calc 49.82 Est GFR (MDRD) Af Amer 57 L Est GFR (MDRD) Non-Af 47 L BUN/Creatinine Ratio 26.8 H Glucose 597 H* Calcium 9.7 Urine Color Yellow Urine Clarity Clear Urine pH 6.5 Ur Specific [place] 1.010 Urine Protein Negative Urine Glucose (UA) 1000 H Urine Ketones Negative Urine Occult Blood 10 H Urine Nitrite Negative Urine Bilirubin Negative Urine Urobilinogen Normal Ur Leukocyte Esterase 100 H Urine RBC 0 SEEN Urine WBC 0-5 SEEN Ur Squamous Epith Cells 5-10 SEEN Urine Bacteria 0 SEEN Urine Mucus 0 SEEN Urine Yeast 1+ POC Glucose > 500 H* 452 H* 11/16/23 11/16/23 19:18 19:59 WBC RBC Hgb Hct MCV MCH MCHC RDW Std Deviation RDW Coeff of Tere Plt Count MPV Immature Gran % (Auto) Neut % (Auto) Lymph % (Auto) [place] % (Auto) Eos % (Auto) Baso % (Auto) Absolute Neuts (auto) Absolute Lymphs (auto) Nucleated RBC % Sodium Potassium Chloride Carbon Dioxide Anion Gap BUN Creatinine Estim Creat Clear Calc Est GFR (MDRD) Af Amer Est GFR (MDRD) Non-Af BUN/Creatinine Ratio Glucose Calcium Urine Color Urine Clarity Urine pH Ur Specific [place] Urine Protein Urine Glucose (UA) Urine Ketones Urine Occult Blood Urine Nitrite Urine Bilirubin Urine Urobilinogen Ur Leukocyte Esterase Urine RBC Urine WBC Ur Squamous Epith Cells Urine Bacteria Urine Mucus Urine Yeast POC Glucose 357 H 254 H ABG Data Attestation: I personally reviewed and interpreted this ABG as follows: Interpretation: VBG is remarkable for an elevated bicarb otherwise unremarkable. ABG results: ABG 11/16/23 17:26 Specimen Type ABDIAZIZ Sample Site Not entered VBG pH 7.43 H VBG pO2 < 34 VBG HCO3 34 H VBG Total CO2 35 H VBG O2 Sat (Calc) 52 VBG Base Excess 9 H POC Mix VBG pCO2 Pt Tmp 50.5 O2 Delivery Device Not entered Radiography Chest X-Ray - ED: 1 View and Read by ED Physician (Reviewed interpreted by me at 1811 as negative for any acute process. Cardiac silhouette and size normal. Lung parenchyma is normal. Perihilar regions normal. Osseous trucks unremarkable. Wires are noted.) Diagnostic Testing: Clinical Impression(s) from Imaging Studies Chest X-Ray 11/16/23 18:05 IMPRESSION: No radiographic evidence of acute cardiopulmonary disease. Electronically Signed: Luis DO Moises at 18:20 EST Reading Location ID and State: [facility] / [place] Tel [phone], Service support , Rhythm Strip Rhythm Strip: Sinus Tach Rate: 129 Ectopy: None EKG Initial EKG: Attestation: I personally reviewed and interpreted this EKG as follows: Interpretation: Sinus Tachycardia (Rate is 115. Other than sinus tachycardia the EKG is normal. WA interval is 144 ms. QRS duration 62 ms. QT duration 320 ms. [place] is normal. There is no peaked T waves or widening of the QRS complex to suggest hyperkalemia.) Discharge Plan Triage Chief Complaint: Nausea/Vomiting Other Complaint: Flank Pain Hyperglycemia ED Provider: Jesse Park Dx/Rx/DC Orders Clinical Impression: Type 1 diabetes mellitus with hyperglycemia, with long-term current use of insulin, Wegeners granulomatosis, Nicotine dependence, cigarettes, uncomplicated, Nausea & vomiting, Acute dehydration, Sinus tachycardia by electrocardiogram, Creatinine elevation, Orthostatic hypotension, Jaclyn infection Instructions: ED Diabetic Hyperglycemia, ED Vomiting (Adult) Prescriptions: New ondansetron [ondansetron] 4 mg tablet,disintegrating 4 mg PO Q8H PRN PRN (Reason: Nausea) Qty: 10 0RF No Action cholecalciferol (vitamin D3) 1,250 mcg (50,000 unit) capsule 1,250 mcg PO QWEEK gabapentin 600 mg tablet 600 mg PO TID ferrous sulfate 325 mg (65 mg iron) tablet,delayed release (DR/EC) 325 mg PO DAILY levothyroxine 200 MCG tablet 225 mcg PO DAILY levetiracetam 500 MG tablet 1,000 mg PO BID insulin lispro 100 UNIT/ML insulin pen SC TIDCM Protocol: 1. Sliding Scale Insulin Low Dosing Condition: 150-224 mg/dl = 1 unit Condition: 225-299 mg/dl = 2 units Condition: 300-374 mg/dl = 3 units Condition: 375-499 mg/dl = 4 units Condition: Greater than 449 call physician Protocol Text: - Use for Total Daily Dose of Insulin 15-27 units - Thin, elderly, renal patients LOW DOSING ALGORITHM cyclobenzaprine 10 mg Tablet 10 mg PO TID hydroxyzine pamoate 50 mg Capsule 50 mg PO 4X/DAY PRN PRN (Reason: Anxiety) Hold Instructions: Resume on 02/24/22. due to interaction with antibiotic melatonin 3 mg Tablet 3 mg PO QHS buspirone 10 mg Tablet 10 mg PO BID omeprazole 20 mg Capsule,Delayed Release(Dr/Ec) 20 mg PO DAILY furosemide [Lasix] 20 mg Tablet 20 mg PO DAILY PRN (Reason: fluid) duloxetine 60 mg Capsule,Delayed Release(Dr/Ec) 60 mg PO DAILY insulin glargine 100 UNITS/ML insulin pen 51 units SC QHS buspirone 10 mg tablet 10 mg PO BID Qty: 30 0RF duloxetine 60 mg capsule,delayed release(DR/EC) 60 mg PO DAILY Qty: 14 0RF gabapentin 600 mg tablet 600 mg PO BID Qty: 30 0RF hydroxyzine pamoate 50 mg capsule 50 mg PO BID PRN (Reason: anxiety) Qty: 30 0RF insulin lispro 100 unit/mL insulin pen 1 sliding scale dose subcut TID Qty: 15 1RF levetiracetam 500 mg tablet 1,000 mg PO BID Qty: 60 0RF levothyroxine 200 mcg capsule 200 mcg PO DAILY Qty: 14 0RF dicyclomine 20 mg tablet 20 mg PO BID PRN (Reason: abdominal pain) Qty: 20 0RF [facility]Primary [facility]] - 3-5 Days if not improving Disposition Disposition: Home, Self Care
[2023-11-16] MEDS: 0.9% Normal Saline (1000mL) 1,000 ML 999 ML IV (17:14)
[2023-11-16 17:23] LABS: Absolute Lymphocyte Count 3.98 X10^3/uL (0.83-4.51); Absolute Neutrophil Count 9.4 X10^3/uL (2.0-7.7); Basophil# 0.13 X10^3/uL; Basophil% 0.9 % (0-1); Eosinophil# 0.17 X10^3/uL; Eosinophils% 1.2 % (0-5); Hematocrit 42.3 % (37-47); Hemoglobin 14.3 g/dL (12.0-15.0); Lymphocyte # 3.98 X10^3/ul (0.83-4.51); Lymphocyte % 27.3 % (19-41); Mean Corp Hgb Conc 33.8 g/dL (32-36); Mean Corpuscular Hgb 28.9 pg (27.0-32.0); Mean Corpuscular Volume 85.6 fL (81-99); Mean Platelet Vol. 9.5 fl (6.2-12.0); Monocyte# 0.87 X10^3/uL; NRBC Flagged by Analyzer 0 % (0-5); Neutrophil # 9.37 X10^3/uL (2.7-7.7); Neutrophil % 64.3 % (47-70); Platelet Count 288 K/mm3 (150-450); RBC Distribution Width CV 12.8 % (11.6-14.6); RBC Distribution Width SD 39.5 fl (35.1-43.9); Red Blood Count 4.94 M/mm3 (4.2-5.4); White Blood Count 14.6 K/mm3 (4.4-11.0)
[2023-11-16 17:26] LABS: Bedside Glucose > 500 mg/dL (74-106)
[2023-11-16 17:29] LABS: Bacteria 0 SEEN /hpf (None Seen); Mucous, Urine 0 SEEN /hpf (<or=2+); Red Blood Cells-Urine 0 SEEN /hpf (0-5)
[2023-11-16 17:31] LABS: Blood Gas Specimen Type VEN; O2 Delivery Device Not entered; SITE Not entered; VBG BASE EXCESS 9 mmol/L (-1.0-3.5); VBG Bicarbonate 34 mmol/L (22-26); VBG PO2 < 34 mmHg (25-40); VBG SO2 52 % (50-70); VBG TCO2 35 mmol/L (23-33); VBG pCO2 50.5 mmHg (41-51); VBG pH 7.43 (7.32-7.42)
[2023-11-16 17:32] LABS: Color, Urine Yellow (Yellow); Glucose, Dipstick 1000 mg/dl (Normal); Ketone-Dipstick Negative (Negative); Leukocyte Esterase-Dipstick 100 /ul (Negative); Nitrite-Dipstick Negative (Negative); Occult Blood-Urine 10 /ul (Negative); Protein-Dipstick Negative (Negative); Urine Bilirubin Dipstick Negative (Negative); Urine Clarity Clear (Clear); Urine Urobilinogen Normal (Normal); Urine pH 6.5 (5.0 - 8.0)
[2023-11-16 17:41] LABS: Squamous Epithelial Cells - UA 5-10 SEEN /hpf (5-10); White Blood Cells 0-5 SEEN /hpf (0-5)
[2023-11-16 17:42] LABS: Yeast-Urine 1+ /hpf (None Seen)
[2023-11-16 17:51] LABS: Anion Gap 8 (5-15); BUN 34 mg/dL (7-18); BUN/Creat Ratio 26.8 RATIO (10-20); Calcium,Total 9.7 mg/dL (8.5-10.1); Chloride 88 mmol/L (98-107); Creatinine, Serum 1.27 mg/dL (0.55-1.02); EST Glomerular Filtration Rate 47 mL/min (>60); Est Glom Filt Rate - Afr Amer 57 mL/min (>60); Estimated Creatinine Clearance 49.82 ml/min; Glucose 597 mg/dL (74-106); Potassium 4.6 mmol/L (3.5-5.1); Sodium Level 126 mmol/L (136-145)
[2023-11-16 18:01] VITALS: BP 147/88; PULSE 112; RESP 14; TEMP 36.4; O2SAT 99
--- NOTE | 2023-11-16 18:05 | RAD_ITS ---
INDICATION: Dyspnea and tachypnea EXAMINATION/TECHNIQUE: X-RAY - XR Chest 1 View COMPARISON: January 27, 2023 FINDINGS: LINES/DEVICES: None. LUNGS: No consolidation, edema or effusion. Right basilar scarring/atelectasis. No pneumothorax. MEDIASTINUM AND CARDIOVASCULAR STRUCTURES: Cardiac silhouette not enlarged. Central airways and mediastinal contour are unremarkable. BONES AND SOFT TISSUES: Unremarkable. RAD/Chest 1 View (Portable) IMPRESSION: No radiographic evidence of acute cardiopulmonary disease. Electronically Signed: Luis De Leon DO at 18:20 EST ,
[2023-11-16] MEDS: Insulin Lispro 100 UNIT/ML INSULN.PEN 8 UNIT SC (18:20)
[2023-11-16] MEDS: 0.9% Normal Saline (1000mL) 1,000 ML 1000 ML IV (18:42)
[2023-11-16] MEDS: Morphine 2 MG/ML Syringe IV (18:42)
[2023-11-16 18:54] LABS: Bedside Glucose 452 mg/dL (74-106)
[2023-11-16 19:36] LABS: Bedside Glucose 357 mg/dL (74-106)
[2023-11-16] MEDS: Dicyclomine 10 MG Capsule 20 MG PO (20:10)
[2023-11-16 20:19] LABS: Bedside Glucose 254 mg/dL (74-106)
[2023-11-16] MEDS: Fluconazole 100 MG Tablet 200 MG PO (21:25)
[2023-11-16] MEDS: LORazepam 0.5 MG Tablet PO (21:25)
[2023-11-16 21:30] VITALS: BP 140/99; PULSE 109; RESP 20
== END 2023-11-16 21:50 | disposition home or self-care (01) ==
PROVIDERS: Emergency Provider Emergency Medicine; Visit Provider Emergency Medicine
DX: E10.65 Type 1 diabetes mellitus with hyperglycemia (principal); M31.30 Wegener's granulomatosis without renal involvement; Z79.4 Long term (current) use of insulin; R11.2 Nausea with vomiting, unspecified; E86.0 Dehydration; R00.0 Tachycardia, unspecified; R79.89 Other specified abnormal findings of blood chemistry; I95.1 Orthostatic hypotension; B37.9 Candidiasis, unspecified; F17.210 Nicotine dependence, cigarettes, uncomplicated; Z79.899 Other long term (current) drug therapy; Z86.16 Personal history of COVID-19
CPT/HCPCS: 71045; 80048; 81001; 82803; 82962; 85025; 93005; 96361; 96374; 99285; J7030; A4216

== ENCOUNTER 2023-11-25 14:55 | Emergency (ER) | payer OTHER, SELFPAY ==
[2023-11-25 14:56] VITALS: BP 139/117; PULSE 116; RESP 13; TEMP 37.2; O2SAT 97; BMI 24.5
--- NOTE | 2023-11-25 15:12 | EDS_ITS ---
HPI <TONI Hernandez - Last Filed: 11/25/23 18:19> History of Present Illness Chief Complaint: Hyperglycemia Narrative Narrative: 53-year-old female with history of type 1 diabetes states she has had 3 days of intermittent nausea and vomiting and high blood sugars. She takes Lantus 51 units in the morning and fast acting insulin before each meal. She follows a sliding scale with the last 3 days that she has been reading high so she was not sure how much to take. She has been taking 10 units before each meal and took it around noon today. She reports increased urination and chronic constipation. She complains of a few weeks of right flank pain. She states she had a CT scan at [place] that showed a mass but then another CT scan at [place] that was normal. [facility] <TONI Hernandez - Last Filed: 11/25/23 18:19> [facility] Medical History Cervical radicular pain Chest pain Dehydration Diabetes Elevated lactic acid level Leida's disease Leida's thyroiditis History of type 1 diabetes mellitus Hyperglycemia Hypothyroidism Hypoxia Lung abscess Pneumonia due to COVID-19 virus Seizures Septic shock Steroid-induced hyperglycemia Wegeners granulomatosis Home Medications levothyroxine 200 mcg tablet 225 mcg PO DAILY thyroid 05/10/20 [History Last Taken 01/27/23] levetiracetam 500 mg tablet 1,000 mg PO BID seizures 06/15/20 [History Last Taken 01/27/23] insulin lispro 100 unit/mL subcutaneous pen sliding scale dose subcut TIDCM diabetes 07/14/20 [History Last Taken 01/27/23] cholecalciferol (vitamin D3) 1,250 mcg (50,000 unit) capsule 1,250 mcg PO QWEEK Check with primary doctor 07/30/20 [History Last Taken 01/27/23] gabapentin 600 mg tablet 600 mg PO TID pain 07/30/20 [History Last Taken 01/26/23] ferrous sulfate 325 mg (65 mg iron) tablet,delayed release 325 mg PO DAILY low iron 10/22/20 [History Last Taken 01/27/23] buspirone 10 mg tablet 10 mg PO BID Check with primary doctor 01/16/22 [History Last Taken 01/27/23] cyclobenzaprine 10 mg tablet 10 mg PO TID Check with primary doctor 01/16/22 [History Last Taken 01/26/23] duloxetine 60 mg capsule,delayed release 60 mg PO DAILY Check with primary doctor 01/16/22 [History Last Taken 01/27/23] furosemide 20 mg tablet (Lasix) 20 mg PO DAILY PRN fluid 01/16/22 [History Last Taken 01/27/23] hydroxyzine pamoate 50 mg capsule 50 mg PO 4X/DAY PRN PRN Anxiety 01/16/22 [History Last Taken 01/21/23] melatonin 3 mg tablet 3 mg PO QHS insomnia 01/16/22 [History Last Taken 01/26] omeprazole 20 mg capsule,delayed release 20 mg PO DAILY gerd 01/16/22 [History Last Taken 01/27/23] buspirone 10 mg tablet 10 mg PO BID #30 tabs 11/09/23 [Rx Last Taken Unknown] dicyclomine 20 mg tablet 20 mg PO BID PRN abdominal pain #20 tabs 11/09/23 [Rx Last Taken Unknown] duloxetine 60 mg capsule,delayed release 60 mg PO DAILY #14 caps 11/09/23 [Rx Last Taken Unknown] gabapentin 600 mg tablet 600 mg PO BID #30 tabs 11/09/23 [Rx Last Taken Unknown] hydroxyzine pamoate 50 mg capsule 50 mg PO BID PRN anxiety #30 caps 11/09/23 [Rx Last Taken Unknown] insulin lispro 100 unit/mL subcutaneous pen 1 sliding scale dose subcut TID #15 mL 11/09/23 [Rx Last Taken Unknown] levetiracetam 500 mg tablet 1,000 mg (2 x 500 mg) PO BID #60 tabs 11/09/23 [Rx Last Taken Unknown] levothyroxine 200 mcg capsule 200 mcg PO DAILY #14 caps 11/09/23 [Rx Last Taken Unknown] insulin glargine 100 unit/mL (3 mL) subcutaneous pen 51 units subcut QHS diabetes 11/16/23 [History Last Taken Unknown] ondansetron 4 mg disintegrating tablet 4 mg PO Q8H PRN PRN Nausea #10 tabs 11/16/23 [Rx Last Taken Unknown] Allergy/AdvReac Type Severity Reaction Status Date / Time NSAIDS (Non-Steroidal Allergy Swelling Verified 11/16/23 17:02 Anti-Inflamma ketorolac [From Toradol] AdvReac headache Verified 11/16/23 17:02 prednisone AdvReac PT UNSURE Verified 11/16/23 17:02 OF REACTION tramadol AdvReac headache Verified 11/16/23 17:02 Family History Grandfather COPD (chronic obstructive pulmonary disease) Surgical History H/O: hysterectomy Hx of appendectomy Social History household members: none Smoking Status: Current every day smoker tobacco type: cigarettes Tobacco: How many years used: 7 substance use type: does not use ROS <TONI Hernandez - Last Filed: 11/25/23 18:19> ROS ED ROS Narrative Constitutional: Negative for fever, chills, malaise. CVS: Negative for chest pain, syncope. Respiratory: Negative for shortness of breath, cough. GI: Positive for nausea, vomiting. : Negative for dysuria, hematuria or frequency. EXAM <TONI Hernandez - Last Filed: 11/25/23 18:19> Physical Exam Narrative Exam Narrative: CONST: Patient sitting in no acute distress. EYES: Normal inspection. ENT: Normal inspection, dry mucous membranes. NECK: Normal inspection. RESP: No respiratory distress, CTAB. CVS: Tachycardic with regular rhythm, no murmur, no gallop. ABD: Soft and nontender, no guarding or rebound, nondistended. Back: Normal inspection, no CVA tenderness. SKIN: Color normal, no rash, warm, dry, intact. EXTREMITIES: Normal appearance, no pedal edema. NEURO: Oriented x4. PSYCH: Normal affect. Const Vital Signs: 11/25/23 14:56 11/25/23 14:59 11/25/23 15:52 Temperature 98.9 F Temperature Source Oral Pulse Rate 116 H 113 H Respiratory Rate 13 17 Respiratory Effort Normal Respiratory Pattern Normal Blood Pressure 139/117 H 131/61 H Blood Pressure Mean 124 84 Pulse Ox 97 97 Oxygen Delivery Method Room Air Room Air <Dr. Jesse Park MD - Last Filed: 11/25/23 18:58> Physical Exam Const Vital Signs: 11/25/23 14:56 11/25/23 14:59 11/25/23 15:52 Temperature 98.9 F Temperature Source Oral Pulse Rate 116 H 113 H Respiratory Rate 13 17 Respiratory Effort Normal Respiratory Pattern Normal Blood Pressure 139/117 H 131/61 H Blood Pressure Mean 124 84 Pulse Ox 97 97 Oxygen Delivery Method Room Air Room Air MDM <TONI Hernandez - Last Filed: 11/25/23 18:19> [facility] Narrative Medical decision making narrative: Patient has DM1 presenting with few days of hyperglycemia nausea vomiting not feeling well. She appears well and nontoxic. She is tachycardic at 116 with otherwise normal vital signs. She has dry mucous membranes. Normal cardiopulmonary exam. Abdomen is soft and nontender. She complains of right flank pain which has been present for several weeks. Glucose is 1107 with normal CO2 and anion gap. Ketones negative. She has pseudohyponatremia around 17 (corrected sodium is 133). There is glucosuria but no infection. She was given IV fluids, Zofran, and started on an insulin drip. Hospitalist has been paged for admission but did not speak with them yet. Patient is requesting pain meds multiple times for right flank pain which has been ongoing for weeks. She has had outpatient workup for this. I ordered Tylenol which she refused. She is allergic to NSAIDs. She states morphine does not work for her and she wants Dilaudid. She has a care plan in place that states no opiates. She is very upset and does not know why she has a care plan. She wants to leave AGAINST MEDICAL ADVICE and go to another hospital will be giving pain medicine. I discussed risks including worsening hyperglycemia, endorgan damage, diabetic coma and . Patient expressed understanding and signed AMA form. Lab Data Attestation: I reviewed the patient's lab results. Labs: Laboratory Results - last 24 hr 11/25/23 11/25/23 11/25/23 15:27 15:38 16:49 WBC 9.5 RBC 4.35 Hgb 12.9 Hct 38.3 MCV 88.0 MCH 29.7 MCHC 33.7 RDW Std Deviation 40.8 RDW Coeff of Tere 12.6 Plt Count 198 MPV 9.8 Immature Gran % (Auto) 0.500 Neut % (Auto) 71.6 H Lymph % (Auto) 20.6 [place] % (Auto) 5.9 Eos % (Auto) 0.8 Baso % (Auto) 0.6 Absolute Neuts (auto) 6.8 Absolute Lymphs (auto) 1.96 Nucleated RBC % 0 Sodium 117 L* Potassium 4.0 Chloride 77 L Carbon Dioxide 25.0 Anion Gap 15 BUN 27 H Creatinine 1.60 H Estim Creat Clear Calc 39.54 Est GFR (MDRD) Af Amer 43 L Est GFR (MDRD) Non-Af 36 L BUN/Creatinine Ratio 16.9 Glucose 1107 H* Calcium 9.7 Total Bilirubin 0.40 AST 58 H ALT 71 H Alkaline Phosphatase 260 H Total Protein 8.2 Albumin 3.4 Globulin 4.8 H Albumin/Globulin Ratio 0.7 L Lipase 44 Urine Color Straw Urine Clarity Clear Urine pH 6.0 Ur Specific Nunez 1.010 Urine Protein Negative Urine Glucose (UA) 1000 H Urine Ketones Negative Urine Occult Blood Negative Urine Nitrite Negative Urine Bilirubin Negative Urine Urobilinogen Normal Ur Leukocyte Esterase Negative Urine RBC 0 SEEN Urine WBC 0 SEEN Ur Squamous Epith Cells 0 SEEN Urine Bacteria 0 SEEN Urine Mucus 0 SEEN Acetone Level NEGATIVE POC Glucose > 500 H* 11/25/23 16:57 WBC RBC Hgb Hct MCV MCH MCHC RDW Std Deviation RDW Coeff of Tere Plt Count MPV Immature Gran % (Auto) Neut % (Auto) Lymph % (Auto) [place] % (Auto) Eos % (Auto) Baso % (Auto) Absolute Neuts (auto) Absolute Lymphs (auto) Nucleated RBC % Sodium 125 L Potassium 4.1 Chloride 87 L Carbon Dioxide 28.0 Anion Gap 10 BUN 23 H Creatinine 1.24 H Estim Creat Clear Calc 51.02 Est GFR (MDRD) Af Amer 58 L Est GFR (MDRD) Non-Af 48 L BUN/Creatinine Ratio 18.5 Glucose 674 H* Calcium 9.7 Total Bilirubin AST ALT Alkaline Phosphatase Total Protein Albumin Globulin Albumin/Globulin Ratio Lipase Urine Color Urine Clarity Urine pH Ur Specific Nunez Urine Protein Urine Glucose (UA) Urine Ketones Urine Occult Blood Urine Nitrite Urine Bilirubin Urine Urobilinogen Ur Leukocyte Esterase Urine RBC Urine WBC Ur Squamous Epith Cells Urine Bacteria Urine Mucus Acetone Level POC Glucose ABG Data ABG results: ABG 11/25/23 17:08 Specimen Type ABDIAZIZ Sample Site Not entered VBG pH 7.57 H VBG pO2 54 H VBG HCO3 26 VBG Total CO2 27 VBG O2 Sat (Calc) 92 H VBG Base Excess 4 H POC Mix VBG pCO2 Pt Tmp 28.1 L O2 Delivery Device Not entered Radiography Diagnostic Testing: Clinical Impression(s) from Imaging Studies Chest X-Ray 11/25/23 15:40 IMPRESSION: Right lower lobe subsegmental atelectasis. No acute disease. Electronically Signed: Jaylon Abdullahi MD at 16:13 EST , ED attending interpretation of 1-view chest x-ray shows normal heart size, no acute infiltrate, edema, or effusion. EKG Initial EKG: Attestation: I personally reviewed and interpreted this EKG as follows: Interpretation: No Acute Injury Pattern and Sinus Tachycardia Comments: Sinus tachycardia at [address] changes <Dr. Jesse Park MD - Last Filed: 11/25/23 18:58> [facility] MDM Narrative Medical decision making narrative: Patient has DM1 presenting with few days of hyperglycemia nausea vomiting not feeling well. She appears well and nontoxic. She is tachycardic at 116 with otherwise normal vital signs. She has dry mucous membranes. Normal cardiopulmonary exam. Abdomen is soft and nontender. She complains of right flank pain which has been present for several weeks. Glucose is 1107 with normal CO2 and anion gap. Ketones negative. She has pseudohyponatremia around 17 (corrected sodium is 133). There is glucosuria but no infection. She was given IV fluids, Zofran, and started on an insulin drip. Hospitalist has been paged for admission but did not speak with them yet. Patient is requesting pain meds multiple times for right flank pain which has been ongoing for weeks. She has had outpatient workup for this. I ordered Tylenol which she refused. She is allergic to NSAIDs. She states morphine does not work for her and she wants Dilaudid. She has a care plan in place that states no opiates. She is very upset and does not know why she has a care plan. She wants to leave AGAINST MEDICAL ADVICE and go to another hospital will be giving pain medicine. I discussed risks including worsening hyperglycemia, endorgan damage, diabetic coma and . Patient expressed understanding and signed AMA form. I have personally performed a face to face assessment of the patient and have reviewed the VIJAY Note. I performed a substantive portion of the visit including all aspects of the following. My duncan findings include: History is remarkable for elevated blood sugar past 3 days, thirst, dry mouth, frequent urination, orthostatic dizziness. She denies fever or chills. She complains of abdominal pain as well as nausea and vomiting. She has vomited several times. She denies blood or coffee-ground appearance to her emesis. She denies black or maroon-colored stool. She denies headache, double vision or loss of vision. She does have blurred vision. She denies ringing or ears decreased hearing. She denies trouble with her speech or swallowing. She denies problems with balance or coordination. She denies cardiac respiratory symptoms. Exam is remarkable for tachycardia. Patient is thin and appears ill. Head is atraumatic no cephalic. TMs normal. Nares patent. Posterior pharynx without erythema exam. Mucosa is dry. Neck is supple. There is no JVD. Heart is ra pid and regular. There is no murmur, gallop or rub. Lungs are clear to auscultation. Abdomen reveals tenderness on the left side. There is no guarding or peritoneal findings. There is no CVA tenderness noted. There is no dermatologic lesions noted. She has no skin lesions noted other than dry skin. Neuroexam is nonfocal. Medical Decision Making concern patient has diabetic ketoacidosis versus hyperosmolar nonketotic hyperglycemia. Appropriate blood work was obtained. Patient is noted to have pseudo hyponatremia due to hyperosmolar state due to hyperosmolar nonketotic hyperglycemia. Patient is not in DKA. Patient was treated with IV fluids. Insulin drip was ordered. Patient signed out against medical vice she was informed of the risks of leaving. Plan was admission to ICU. She was aware of this. Family was aware. Family out allowed her to leave. Risk benefits were documented on the discharge paperwork. She did sign AMA. Other additions or changes: Patient left AMA and understands the risk. Capacity form was completed. Lab Data Attestation: I reviewed the patient's lab results. Lab results narrative: CBC is 9.5 with normal differential. H&H normal. Sodium is 117. This represents pseudohyponatremia due to hyperglycemia of glucose of 1107. BUN and creatinine are elevated 27 and 1.6. Transaminases are slightly elevated at 58 and 71.1. Alkaline phosphatase elevated 260. Serum ketones are negative. CO2 and anion gap are normal. Labs: Laboratory Results - last 24 hr 11/25/23 11/25/23 11/25/23 15:27 15:38 16:49 WBC 9.5 RBC 4.35 Hgb 12.9 Hct 38.3 MCV 88.0 MCH 29.7 MCHC 33.7 RDW Std Deviation 40.8 RDW Coeff of Tere 12.6 Plt Count 198 MPV 9.8 Immature Gran % (Auto) 0.500 Neut % (Auto) 71.6 H Lymph % (Auto) 20.6 [place] % (Auto) 5.9 Eos % (Auto) 0.8 Baso % (Auto) 0.6 Absolute Neuts (auto) 6.8 Absolute Lymphs (auto) 1.96 Nucleated RBC % 0 Sodium 117 L* Potassium 4.0 Chloride 77 L Carbon Dioxide 25.0 Anion Gap 15 BUN 27 H Creatinine 1.60 H Estim Creat Clear Calc 39.54 Est GFR (MDRD) Af Amer 43 L Est GFR (MDRD) Non-Af 36 L BUN/Creatinine Ratio 16.9 Glucose 1107 H* Calcium 9.7 Total Bilirubin 0.40 AST 58 H ALT 71 H Alkaline Phosphatase 260 H Total Protein 8.2 Albumin 3.4 Globulin 4.8 H Albumin/Globulin Ratio 0.7 L Lipase 44 Urine Color Straw Urine Clarity Clear Urine pH 6.0 Ur Specific Nunez 1.010 Urine Protein Negative Urine Glucose (UA) 1000 H Urine Ketones Negative Urine Occult Blood Negative Urine Nitrite Negative Urine Bilirubin Negative Urine Urobilinogen Normal Ur Leukocyte Esterase Negative Urine RBC 0 SEEN Urine WBC 0 SEEN Ur Squamous Epith Cells 0 SEEN Urine Bacteria 0 SEEN Urine Mucus 0 SEEN Acetone Level NEGATIVE POC Glucose > 500 H* 11/25/23 16:57 WBC RBC Hgb Hct MCV MCH MCHC RDW Std Deviation RDW Coeff of Tere Plt Count MPV Immature Gran % (Auto) Neut % (Auto) Lymph % (Auto) [place] % (Auto) Eos % (Auto) Baso % (Auto) Absolute Neuts (auto) Absolute Lymphs (auto) Nucleated RBC % Sodium 125 L Potassium 4.1 Chloride 87 L Carbon Dioxide 28.0 Anion Gap 10 BUN 23 H Creatinine 1.24 H Estim Creat Clear Calc 51.02 Est GFR (MDRD) Af Amer 58 L Est GFR (MDRD) Non-Af 48 L BUN/Creatinine Ratio 18.5 Glucose 674 H* Calcium 9.7 Total Bilirubin AST ALT Alkaline Phosphatase Total Protein Albumin Globulin Albumin/Globulin Ratio Lipase Urine Color Urine Clarity Urine pH Ur Specific Nunez Urine Protein Urine Glucose (UA) Urine Ketones Urine Occult Blood Urine Nitrite Urine Bilirubin Urine Urobilinogen Ur Leukocyte Esterase Urine RBC Urine WBC Ur Squamous Epith Cells Urine Bacteria Urine Mucus Acetone Level POC Glucose ABG Data ABG results: ABG 11/25/23 17:08 Specimen Type ABDIAZIZ Sample Site Not entered VBG pH 7.57 H VBG pO2 54 H VBG HCO3 26 VBG Total CO2 27 VBG O2 Sat (Calc) 92 H VBG Base Excess 4 H POC Mix VBG pCO2 Pt Tmp 28.1 L O2 Delivery Device Not entered Radiography Chest X-Ray - ED: 1 View and Read by ED Physician (There is no acute findings. Cardiac silhouette and size normal. There are slight atelectasis right. Otherwise lung parenchyma is normal. Perihilar regions normal. Osseous structures are normal.) Diagnostic Testing: Clinical Impression(s) from Imaging Studies Chest X-Ray 11/25/23 15:40 IMPRESSION: Right lower lobe subsegmental atelectasis. No acute disease. Electronically Signed: Jaylon Abdullahi MD at 16:13 EST Reading Location ID and State: [facility] / [place] Tel , Service support , Treatment and Re-Evaluation :: Patient has hyperosmolar nonketotic hyper ischemia. She will require admission to ICU. She was started on insulin drip. <Dr. Jesse Park MD - Last Filed: 11/25/23 18:58> Critical Care Time Critical Care Time: Yes Critical care time (excluding procedures): 30-74 minutes (31), Including time spent: (History, physical, documentation, and pending interpretation of laboratory results and initiation of therapy for hyperosmolar nonketotic hyperglycemia.), Discussing w/Patient &/or Family/Missile Inspector, Discussing w/Consultants and Arranging Admission or Transfer (Patient signed out AGAINST MEDICAL ADVICE.) Discharge Plan Triage Chief Complaint: Hyperglycemia ED Midlevel Provider: Estelle Deal ED Provider: Jesse Park Dx/Rx/DC Orders Clinical Impression: Type 1 diabetes mellitus with hyperosmolar hyperglycemic state (HHS), Pseudohyponatremia, Dehydration Instructions: ED Diabetic Hyperglycemia Prescriptions: No Action cholecalciferol (vitamin D3) 1,250 mcg (50,000 unit) capsule 1,250 mcg PO QWEEK gabapentin 600 mg tablet 600 mg PO TID ferrous sulfate 325 mg (65 mg iron) tablet,delayed release (DR/EC) 325 mg PO DAILY levothyroxine 200 MCG tablet 225 mcg PO DAILY levetiracetam 500 MG tablet 1,000 mg PO BID insulin lispro 100 UNIT/ML insulin pen SC TIDCM Protocol: 1. Sliding Scale Insulin Low Dosing Condition: 150-224 mg/dl = 1 unit Condition: 225-299 mg/dl = 2 units Condition: 300-374 mg/dl = 3 units Condition: 375-499 mg/dl = 4 units Condition: Greater than 449 call physician Protocol Text: - Use for Total Daily Dose of Insulin 15-27 units - Thin, elderly, renal patients LOW DOSING ALGORITHM cyclobenzaprine 10 mg Tablet 10 mg PO TID hydroxyzine pamoate 50 mg Capsule 50 mg PO 4X/DAY PRN PRN (Reason: Anxiety) Hold Instructions: Resume on 02/24/22. due to interaction with antibiotic melatonin 3 mg Tablet 3 mg PO QHS buspirone 10 mg Tablet 10 mg PO BID omeprazole 20 mg Capsule,Delayed Release(Dr/Ec) 20 mg PO DAILY furosemide [Lasix] 20 mg Tablet 20 mg PO DAILY PRN (Reason: fluid) duloxetine 60 mg Capsule,Delayed Release(Dr/Ec) 60 mg PO DAILY insulin glargine 100 UNITS/ML insulin pen 51 units SC QHS ondansetron [ondansetron] 4 mg tablet,disintegrating 4 mg PO Q8H PRN PRN (Reason: Nausea) Qty: 10 0RF buspirone 10 mg tablet 10 mg PO BID Qty: 30 0RF duloxetine 60 mg capsule,delayed release(DR/EC) 60 mg PO DAILY Qty: 14 0RF gabapentin 600 mg tablet 600 mg PO BID Qty: 30 0RF hydroxyzine pamoate 50 mg capsule 50 mg PO BID PRN (Reason: anxiety) Qty: 30 0RF insulin lispro 100 unit/mL insulin pen 1 sliding scale dose subcut TID Qty: 15 1RF levetiracetam 500 mg tablet 1,000 mg PO BID Qty: 60 0RF levothyroxine 200 mcg capsule 200 mcg PO DAILY Qty: 14 0RF dicyclomine 20 mg tablet 20 mg PO BID PRN (Reason: abdominal pain) Qty: 20 0RF [facility] Care Provider: [facility] Referrals: [facility] [Primary Care Provider] - Activity Restrictions/Additional Instructions: I have been informed by Dr. Park that I need to be admitted to the hospital. I understand by signing out against medical vice there are risks. The risks are not limited to what is documented on this record. By leaving AGAINST MEDICAL ADVICE you may go into a coma. This may result in a fall and injury resulting in bleed into your brain, fractured bones requiring emergent surgery. This may lead to physical, emotional or cognitive disability. This may result in me needing ventilatory support, life support. I may not be able to perform activities of daily living which would include feeding myself, dressing myself, bathing myself and performing simple tasks. I may develop a seizure disorder. And he may require a tracheostomy, which is a surgical opening in my neck to allow me to breathe. I may require a feeding tube. Disposition Disposition: Against Medical Advice Discharge Date/Time: 11/25/23 17:24 Capacity <Dr. Jesse Park MD - Last Filed: 11/25/23 18:58> Capacity Assessment Tool Can the patient make a choice & communicate that choice?: Yes Can the patient understand benefits, risks and alternatives?: Yes Can the patient make a logical, rational choice?: Yes Is the choice the patient makes consistent w/ their values?: Yes Is there an impending, emergent risk to the patient?: Yes Does the patient have an Advance Directive?: Unable to Determine Is there a Surrogate Available?: Yes i.e. close relative (spouse, child, parent, sibling)?: Yes
[2023-11-25] MEDS: Ondansetron 4 MG/2 ML Vial IV (15:39)
[2023-11-25] MEDS: 0.9% Normal Saline (1000mL) 1,000 ML 999 ML IV (15:39)
--- NOTE | 2023-11-25 15:40 | RAD_ITS ---
STUDY: X-RAY CHEST REASON FOR EXAM: Female, 53 years old. weakness TECHNIQUE: Single frontal view of the chest. COMPARISON: November 16, 2023 chest x-ray FINDINGS: Right lower lobe subsegmental atelectasis. The lungs are clear and expanded. There is no demonstrated pleural abnormality. Normal size heart. Normal mediastinum and ajnes. Normal visualized pulmonary arteries. Normal visualized aortic arch and descending thoracic aorta. Normal visualized thoracic spine. Normal visualized ribs, clavicles, and shoulders. There is no demonstrated abnormality of the visualized soft tissue structures of the upper abdomen. RAD/Chest 1 View (Portable) IMPRESSION: Right lower lobe subsegmental atelectasis. No acute disease. Electronically Signed: Jaylon Abdullahi MD at 16:13 EST ,
[2023-11-25 15:46] LABS: Bacteria 0 SEEN /hpf (None Seen); Mucous, Urine 0 SEEN /hpf (<or=2+); Red Blood Cells-Urine 0 SEEN /hpf (0-5); Squamous Epithelial Cells - UA 0 SEEN /hpf (5-10); White Blood Cells 0 SEEN /hpf (0-5)
[2023-11-25 15:47] LABS: Absolute Lymphocyte Count 1.96 X10^3/uL (0.83-4.51); Absolute Neutrophil Count 6.8 X10^3/uL (2.0-7.7); Basophil# 0.06 X10^3/uL; Basophil% 0.6 % (0-1); Eosinophil# 0.08 X10^3/uL; Eosinophils% 0.8 % (0-5); Hematocrit 38.3 % (37-47); Hemoglobin 12.9 g/dL (12.0-15.0); Lymphocyte # 1.96 X10^3/ul (0.83-4.51); Lymphocyte % 20.6 % (19-41); Mean Corp Hgb Conc 33.7 g/dL (32-36); Mean Corpuscular Hgb 29.7 pg (27.0-32.0); Mean Platelet Vol. 9.8 fl (6.2-12.0); Monocyte# 0.56 X10^3/uL; Monocyte% 5.9 % (0-10); NRBC Flagged by Analyzer 0 % (0-5); Neutrophil # 6.79 X10^3/uL (2.7-7.7); Neutrophil % 71.6 % (47-70); Platelet Count 198 K/mm3 (150-450); RBC Distribution Width CV 12.6 % (11.6-14.6); RBC Distribution Width SD 40.8 fl (35.1-43.9); Red Blood Count 4.35 M/mm3 (4.2-5.4); White Blood Count 9.5 K/mm3 (4.4-11.0)
[2023-11-25 15:52] VITALS: BP 131/61; PULSE 113; RESP 17; O2SAT 97
[2023-11-25 16:16] LABS: Color, Urine Straw (Yellow); Glucose, Dipstick 1000 mg/dl (Normal); Ketone-Dipstick Negative (Negative); Leukocyte Esterase-Dipstick Negative /ul (Negative); Nitrite-Dipstick Negative (Negative); Occult Blood-Urine Negative /ul (Negative); Protein-Dipstick Negative (Negative); Urine Bilirubin Dipstick Negative (Negative); Urine Clarity Clear (Clear); Urine Urobilinogen Normal (Normal)
[2023-11-25 16:23] LABS: Lipase 44 U/L (13-75)
[2023-11-25 16:33] LABS: ALB/GLOB Ratio 0.7 RATIO (0.9-2.4); AST(SGOT) 58 U/L (15-37); Alanine Aminotransfer ALT/SGPT 71 U/L (13-56); Albumin, Serum 3.4 g/dL (3.2-5.0); Alkaline Phosphatase 260 U/L (45-117); Anion Gap 15 (5-15); BUN 27 mg/dL (7-18); BUN/Creat Ratio 16.9 RATIO (10-20); Calcium,Total 9.7 mg/dL (8.5-10.1); Chloride 77 mmol/L (98-107); EST Glomerular Filtration Rate 36 mL/min (>60); Est Glom Filt Rate - Afr Amer 43 mL/min (>60); Estimated Creatinine Clearance 39.54 ml/min; Globulin 4.8 g/dL (2.2-4.2); Glucose 1107 mg/dL (74-106); Protein, Total 8.2 g/dL (6.4-8.2); Sodium Level 117 mmol/L (136-145)
[2023-11-25] MEDS: Lidocaine 5% Patch 1 PATCH TOPICAL (16:52)
[2023-11-25 17:14] LABS: Blood Gas Specimen Type VEN; O2 Delivery Device Not entered; SITE Not entered; VBG BASE EXCESS 4 mmol/L (-1.0-3.5); VBG Bicarbonate 26 mmol/L (22-26); VBG PO2 54 mmHg (25-40); VBG SO2 92 % (50-70); VBG TCO2 27 mmol/L (23-33); VBG pCO2 28.1 mmHg (41-51); VBG pH 7.57 (7.32-7.42)
[2023-11-25 17:14] LABS: Bedside Glucose > 500 mg/dL (74-106)
--- NOTE | 2023-11-25 17:14 | HP.PCM.HOS_ITS ---
HPI - General HPI Narrative Hyponatremia, JOHANN, hyperglycemia PFSH Medical History Cervical radicular pain Chest pain Dehydration Diabetes Elevated lactic acid level Leida's disease Leida's thyroiditis History of type 1 diabetes mellitus Hyperglycemia Hypothyroidism Hypoxia Lung abscess Pneumonia due to COVID-19 virus Seizures Septic shock Steroid-induced hyperglycemia Wegeners granulomatosis Home Medications levothyroxine 200 mcg tablet 225 mcg PO DAILY thyroid 05/10/20 [History Last Taken 01/27/23] levetiracetam 500 mg tablet 1,000 mg PO BID seizures 06/15/20 [History Last Taken 01/27/23] insulin lispro 100 unit/mL subcutaneous pen sliding scale dose subcut TIDCM di abetes 07/14/20 [History Last Taken 01/27/23] cholecalciferol (vitamin D3) 1,250 mcg (50,000 unit) capsule 1,250 mcg PO QWEEK Check with primary doctor 07/30/20 [History Last Taken 01/27/23] gabapentin 600 mg tablet 600 mg PO TID pain 07/30/20 [History Last Taken 01/26/23] ferrous sulfate 325 mg (65 mg iron) tablet,delayed release 325 mg PO DAILY low iron 10/22/20 [History Last Taken 01/27/23] buspirone 10 mg tablet 10 mg PO BID Check with primary doctor 01/16/22 [History Last Taken 01/27/23] cyclobenzaprine 10 mg tablet 10 mg PO TID Check with primary doctor 01/16/22 [History Last Taken 01/26/23] duloxetine 60 mg capsule,delayed release 60 mg PO DAILY Check with primary doctor 01/16/22 [History Last Taken 01/27/23] furosemide 20 mg tablet (Lasix) 20 mg PO DAILY PRN fluid 01/16/22 [History Last Taken 01/27/23] hydroxyzine pamoate 50 mg capsule 50 mg PO 4X/DAY PRN PRN Anxiety 01/16/22 [Hi story Last Taken 01/21/23] melatonin 3 mg tablet 3 mg PO QHS insomnia 01/16/22 [History Last Taken 0 01/26/23] omeprazole 20 mg capsule,delayed release 20 mg PO DAILY gerd 01/16/22 [History Last Taken 01/27/23] buspirone 10 mg tablet 10 mg PO BID #30 tabs 11/09/23 [Rx Last Taken Unknown] dicyclomine 20 mg tablet 20 mg PO BID PRN abdominal pain #20 tabs 11/09/23 [Rx Last Taken Unknown] duloxetine 60 mg capsule,delayed release 60 mg PO DAILY #14 caps 11/09/23 [Rx Last Taken Unknown] gabapentin 600 mg tablet 600 mg PO BID #30 tabs 11/09/23 [Rx Last Taken Unknown] hydroxyzine pamoate 50 mg capsule 50 mg PO BID PRN anxiety #30 caps 11/09/23 [Rx Last Taken Unknown] insulin lispro 100 unit/mL subcutaneous pen 1 sliding scale dose subcut TID #15 mL 11/09/23 [Rx Last Taken Unknown] levetiracetam 500 mg tablet 1,000 mg (2 x 500 mg) PO BID #60 tabs 11/09/23 [Rx Last Taken Unknown] levothyroxine 200 mcg capsule 200 mcg PO DAILY #14 caps 11/09/23 [Rx Last Taken Unknown] insulin glargine 100 unit/mL (3 mL) subcutaneous pen 51 units subcut QHS diabetes 11/16/23 [History Last Taken Unknown] ondansetron 4 mg disintegrating tablet 4 mg PO Q8H PRN PRN Nausea #10 tabs 11/16/23 [Rx Last Taken Unknown] Allergy/AdvReac Type Severity Reaction Status Date / Time NSAIDS (Non-Steroidal Allergy Swelling Verified 11/16/23 17:02 Anti-Inflamma ketorolac [From Toradol] AdvReac headache Verified 11/16/23 17:02 prednisone AdvReac PT UNSURE Verified 11/16/23 17:02 OF REACTION tramadol AdvReac headache Verified 11/16/23 17:02 Family History Grandfather COPD (chronic obstructive pulmonary disease) Surgical History H/O: hysterectomy Hx of appendectomy Social History household members: none Smoking Status: Current every day smoker tobacco type: cigarettes Tobacco: How many years used: 7 substance use type: does not use Vital Signs Vital Signs Vital Signs: 11/25/23 14:56 11/25/23 14:59 11/25/23 15:52 Temperature 98.9 F Temperature Source Oral Pulse Rate 116 H 113 H Respiratory Rate 13 17 Respiratory Effort Normal Respiratory Pattern Normal Blood Pressure 139/117 H 131/61 H Blood Pressure Mean 124 84 Pulse Ox 97 97 Oxygen Delivery Method Room Air Room Air Weight Weight: 156 lb 8.451 oz Body Mass Index (BMI) 24.5 Results Lab / Micro Data 11/25/23 15:27 11/25/23 15:27 Labs: Laboratory Results - last 24 hr 11/25/23 15:27: WBC 9.5, RBC 4.35, Hgb 12.9, Hct 38.3, MCV 88.0, MCH 29.7, MCHC 33.7, RDW Std Deviation 40.8, RDW Coeff of Tere 12.6, Plt Count 198, MPV 9.8, Immature Gran % (Auto) 0.500, Neut % (Auto) 71.6 H, Lymph % (Auto) 20.6, [place] % (Auto) 5.9, Eos % (Auto) 0.8, Baso % (Auto) 0.6, Absolute Neuts (auto) 6.8, Absolute Lymphs (auto) 1.96, Nucleated RBC % 0, Sodium 117 L*, Potassium 4.0, Chloride 77 L, Carbon Dioxide 25.0, Anion Gap 15, BUN 27 H, Creatinine 1.60 H, Estim Creat Clear Calc 39.54, Est GFR (MDRD) Af Amer 43 L, Est GFR (MDRD) Non-Af 36 L, BUN/Creatinine Ratio 16.9, Glucose 1107 H*, Calcium 9.7, Total Bilirubin 0.40, AST 58 H, ALT 71 H, Alkaline Phosphatase 260 H, Total Protein 8.2, Albumin 3.4, Globulin 4.8 H, Albumin/Globulin Ratio 0.7 L, Lipase 44, Acetone Level NEGATIVE 11/25/23 15:38: Urine Color Straw, Urine Clarity Clear, Urine pH 6.0, Ur Specific [place] 1.010, Urine Protein Negative, Urine Glucose (UA) 1000 H, Urine Ketones Negative, Urine Occult Blood Negative, Urine Nitrite Negative, Urine Bilirubin Negative, Urine Urobilinogen Normal, Ur Leukocyte Esterase Negative, Urine RBC 0 SEEN, Urine WBC 0 SEEN, Ur Squamous Epith Cells 0 SEEN, Urine Bacteria 0 SEEN, Urine Mucus 0 SEEN 11/25/23 16:49: POC Glucose > 500 H* ABG Data ABG results: ABG 11/25/23 17:08 Specimen Type ABDIAZIZ Sample Site Not entered VBG pH 7.57 H VBG pO2 54 H VBG HCO3 26 VBG Total CO2 27 VBG O2 Sat (Calc) 92 H VBG Base Excess 4 H POC Mix VBG pCO2 Pt Tmp 28.1 L O2 Delivery Device Not entered [facility] Impression Chest X-Ray 11/25/23 15:40 IMPRESSION: Right lower lobe subsegmental atelectasis. No acute disease. Electronically Signed: Jaylon Abdullahi MD at 16:13 EST ,
[2023-11-25 17:43] LABS: Anion Gap 10 (5-15); BUN 23 mg/dL (7-18); BUN/Creat Ratio 18.5 RATIO (10-20); Calcium,Total 9.7 mg/dL (8.5-10.1); Chloride 87 mmol/L (98-107); Creatinine, Serum 1.24 mg/dL (0.55-1.02); EST Glomerular Filtration Rate 48 mL/min (>60); Est Glom Filt Rate - Afr Amer 58 mL/min (>60); Estimated Creatinine Clearance 51.02 ml/min; Glucose 674 mg/dL (74-106); Potassium 4.1 mmol/L (3.5-5.1); Sodium Level 125 mmol/L (136-145)
== END 2023-11-25 17:24 | disposition left against medical advice (07) ==
PROVIDERS: Physician Assistant; Emergency Provider Emergency Medicine; Visit Provider Emergency Medicine
DX: E10.69 Type 1 diabetes mellitus with other specified complication (principal); Z79.4 Long term (current) use of insulin; E86.0 Dehydration; F17.210 Nicotine dependence, cigarettes, uncomplicated; Z86.16 Personal history of COVID-19
CPT/HCPCS: 71045; 80048; 80053; 81001; 82009; 82803; 82962; 83690; 85025; 93005; 96374; 99283; A4216; J2405